=== PATIENT | male | born 1965 | race Caucasian/White ===

== ENCOUNTER 2025-04-10 15:55 | Inpatient (IN) | payer OTHER, SELFPAY ==
[2025-04-10] VITALS (43 sets, daily range): BP systolic 74–120; BP diastolic 52–82
[2025-04-10 10:07] LABS: Glucose - Point of Care 189 mg/dl (70-99)
--- NOTE | 2025-04-10 10:18 | ED.GENMED ---
History of Present Illness
<Saturnino Bundy PA-C - Last Filed: 04/10/25 15:09>
General
Chief Complaint: Change Level of Consciousness
Source: records
Time Seen by Provider: 04/10/25 09:59
History of Present Illness
History of Present Illness:
59-year-old male with past medical history of atrial fibrillation, hypertension, hyperlipidemia, CKD (dialysis Monday, Monday, Monday) presenting to the ER from [facility] for evaluation and reported change in mental status and
hypotension, currently being treated for bacteremia but it is not clear as to where the source of infection is occurring. Patient has reportedly been at [facility] for 1 to 2 weeks, is normally awake alert and oriented x 3 but per EMS patient is
persistently somnolent and not responding to verbal commands but maintaining his airway. EMS found him hypotensive on their arrival, remains hypotensive on arrival here, unable to provide any history. It is unclear as to which hospital patient
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 I attempted to call [facility] to get further information and figure out which facility
patient had come from prior to their facility but unfortunately was not able to speak to any of the nursing staff, attempting to get medical records from [facility].
Past History
<Saturnino Bundy PA-C - Last Filed: 04/10/25 15:09>
Past History
ED Past Medical History: Arrthythmia, HTN, Hypercholesterolemia, Renal failure and Psychiatric
ED Past Surgical History: Other (Unknown)
Social History
Tobacco: Non-smoker
Alcohol: None
Drug: None
Personal: Single
Living: assisted
Review of Systems
<Saturnino Bundy PA-C - Last Filed: 04/10/25 15:09>
Review of Systems
All Other Systems: ROS reviewed and negative except as documented in HPI and ROS
Phy Exam
<Saturnino Bundy PA-C - Last Filed: 04/10/25 15:09>
Physical Exam
Physical Exam:
GENERAL: Eyes closed, maintaining airway, grunts when you say his name but does not answer questions, grunts with painful stimuli, appears older than stated age, ill-appearing
HEAD: Normocephalic atraumatic
EYE: clear conjunctiva
NECK: Supple
ENT: o/p clr, dry mucous membranes
CARDIAC: Regular rate and rhythm .
LUNGS: Clear breath sounds bilaterally, no acute respiratory distress, no wheezes/rales/rhonchi, left anterior chest wall has dialysis catheter, left upper extremity fistula
ABDOMEN: Soft, without focal tenderness, no r/g, no cvat
NEUROLOGICAL: Unable to assess
SKIN: cool and dry, stage II-III sacral wound with slight erythema
MUSCULOSKELETAL: Skin is mottled bilateral lower extremities, no edema, cool to the touch
PSYCH: Unable to assess
Scores
<Saturnino Bundy PA-C - Last Filed: 04/10/25 15:09>
Heart Failure Risk
Heart Failure Risk Score: Not Applicable
Heart Score for Chest Pain Patients
STEMI patient?: Not applicable
Withdrawal Assessment of Alcohol
Withdrawal Assessment Completed?: Not applicable
Course
<Saturnino Bundy PA-C - Last Filed: 04/10/25 15:09>
Orders/Labs/Results
Orders:
Orders
04/10/25 10:03
Straight cath- Treatment ONCE
0.9% Sodium Chloride 1000 ml [Nss] 1,800 ml IV NOW STA
04/10/25 10:04
Electrocardiogram (*1) Urgent
Reason for Study: Other
Other Reason for Exam: sepsis
EKG- Treatment ONCE
CR Chest Portable - 1 View Urgent
Comment:
Reason For Exam: change in mental status
Reason Study Needs to be Portable: Patient Unstable
04/10/25 10:12
Complete Blood Count/With Diff Urgent
Comprehensive Metabolic Panel Urgent
Lactic Acid Q4H
Comment: CANCEL 2nd LACTIC ACID IF 1st LACTIC ACID IS LESS THAN 2
Magnesium Urgent
Phosphorus Urgent
Blood Culture Q30M
[place] Source: Blood/Venous
Specimen Description:
04/10/25 10:37
CT Head W/o Iv Contrast Urgent
Comment:
Reason For Exam: AMS
04/10/25 10:38
Troponin I Urgent
04/10/25 12:30
Blood Culture Q30M
[place] Source: Blood/Venous
Specimen Description:
04/10/25 14:18
Add On- LAB Routine
Tests Added?: Mg Phos
04/10/25 14:52
Troponin I Routine
Abnormal Lab Results
04/10/25 04/10/25 04/10/25
10:05 10:12 10:38
RBC 3.07 L 10^6/uL
(4.70-6.10)
Hgb 9.0 L g/dL
(13.0-18.0)
Hct 28.4 L %
(39.0-52.0)
MCHC 31.7 L g/dL
(33.0-37.0)
RDW 19.2 H %
(11.5-14.5)
Plt Count 88 L 10^3/uL
(130-400)
MPV 10.8 H fL
(7.4-10.4)
Absolute Lymphs (auto) 0.6 L 10^3/uL
(1.2-3.4)
Immature Gran % 0.6 H %
(0-0.5)
Neutrophils % 80.6 H %
(42.2-75.2)
Lymphocytes % 9.2 L %
(20.5-51.1)
Potassium 3.1 L mmol/L
(3.5-5.1)
Chloride 96 L mmol/L
(98-107)
Carbon Dioxide 34 H mmol/L
(22-30)
BUN 37 H mg/dl
(9-20)
Creatinine 3.0 H mg/dL
(0.7-1.3)
Glucose 196 H mg/dl
(70-99)
Calcium 8.2 L mg/dl
(8.4-10.2)
Phosphorus 5.5 H mg/dl
(2.5-4.5)
Total Bilirubin 1.5 H mg/dl
(0.2-1.3)
Alkaline Phosphatase 185 H U/L
(38-126)
Troponin I 0.056 H* ng/ml
Total Protein 6.0 L g/dl
(6.3-8.2)
Albumin 3.2 L g/dl
(3.5-5.0)
POC Glucose 189 H mg/dl
(70-99)
04/10/25 10:12
04/10/25 10:12
Vital Signs
Initial and Last Documented VS:
Initial Vital Signs
Temp Pulse Resp BP Pulse Ox
97.6 F 63 18 74/57 96
04/10/25 09:58 04/10/25 09:58 04/10/25 09:58 04/10/25 09:58 04/10/25 09:58
Last Documented Vital Signs
Temp Pulse Resp BP Pulse Ox
97.6 F 65 23 107/73 100
04/10/25 09:58 04/10/25 15:00 04/10/25 15:00 04/10/25 15:00 04/10/25 15:00
<Abdirahman H. Minerva, DO - Last Filed: 04/10/25 10:49>
Orders/Labs/Results
Orders:
Orders
04/10/25 10:03
Straight cath- Treatment ONCE
0.9% Sodium Chloride 1000 ml [Nss] 1,800 ml IV NOW STA
04/10/25 10:04
Electrocardiogram (*1) Urgent
Reason for Study: Other
Other Reason for Exam: sepsis
EKG- Treatment ONCE
CR Chest Portable - 1 View Urgent
Comment:
Reason For Exam: change in mental status
Reason Study Needs to be Portable: Patient Unstable
04/10/25 10:12
Complete Blood Count/With Diff Urgent
Comprehensive Metabolic Panel Urgent
Lactic Acid Q4H
Comment: CANCEL 2nd LACTIC ACID IF 1st LACTIC ACID IS LESS THAN 2
Magnesium Urgent
Phosphorus Urgent
Blood Culture Q30M
[place] Source: Blood/Venous
Specimen Description:
04/10/25 10:37
CT Head W/o Iv Contrast Urgent
Comment:
Reason For Exam: AMS
04/10/25 10:38
Troponin I Urgent
04/10/25 12:30
Blood Culture Q30M
[place] Source: Blood/Venous
Specimen Description:
04/10/25 14:18
Add On- LAB Routine
Tests Added?: Mg Phos
04/10/25 14:52
Troponin I Routine
Abnormal Lab Results
04/10/25 04/10/25 04/10/25
10:05 10:12 10:38
RBC 3.07 L 10^6/uL
(4.70-6.10)
Hgb 9.0 L g/dL
(13.0-18.0)
Hct 28.4 L %
(39.0-52.0)
MCHC 31.7 L g/dL
(33.0-37.0)
RDW 19.2 H %
(11.5-14.5)
Plt Count 88 L 10^3/uL
(130-400)
MPV 10.8 H fL
(7.4-10.4)
Absolute Lymphs (auto) 0.6 L 10^3/uL
(1.2-3.4)
Immature Gran % 0.6 H %
(0-0.5)
Neutrophils % 80.6 H %
(42.2-75.2)
Lymphocytes % 9.2 L %
(20.5-51.1)
Potassium 3.1 L mmol/L
(3.5-5.1)
Chloride 96 L mmol/L
(98-107)
Carbon Dioxide 34 H mmol/L
(22-30)
BUN 37 H mg/dl
(9-20)
Creatinine 3.0 H mg/dL
(0.7-1.3)
Glucose 196 H mg/dl
(70-99)
Calcium 8.2 L mg/dl
(8.4-10.2)
Phosphorus 5.5 H mg/dl
(2.5-4.5)
Total Bilirubin 1.5 H mg/dl
(0.2-1.3)
Alkaline Phosphatase 185 H U/L
(38-126)
Troponin I 0.056 H* ng/ml
Total Protein 6.0 L g/dl
(6.3-8.2)
Albumin 3.2 L g/dl
(3.5-5.0)
POC Glucose 189 H mg/dl
(70-99)
04/10/25 10:12
04/10/25 10:12
Vital Signs
Initial and Last Documented VS:
Initial Vital Signs
Temp Pulse Resp BP Pulse Ox
97.6 F 63 18 74/57 96
04/10/25 09:58 04/10/25 09:58 04/10/25 09:58 04/10/25 09:58 04/10/25 09:58
Last Documented Vital Signs
Temp Pulse Resp BP Pulse Ox
97.6 F 65 23 107/73 100
04/10/25 09:58 04/10/25 15:00 04/10/25 15:00 04/10/25 15:00 04/10/25 15:00
<Saturnino Bundy PA-C - Last Filed: 04/10/25 15:09>
MDM/Problems Addressed
Differential Diagnosis Includes:
Severe sepsis/bacteremia
Infected dialysis catheter
PICC line infection
Endocarditis
Urinary tract infection
Pneumonia
Viral syndrome
Electrolyte imbalance
Hyper/hypoglycemia
MDM/Problems Addressed:
59-year-old male presenting to the ER from [facility] for evaluation of change in mental status, normally awake alert and oriented x 3, currently somnolent but maintaining airway. Significant hypotension noted. Will treat with IV
fluids, will have low threshold to start pressors. Currently being treated for what appears to be vancomycin resistant infection but it is unclear as to the current source as patient's paperwork did not express potential source of infection. I
contacted [facility], attempted to speak with nursing staff but was unable to do so. Attempting to obtain records from [facility] from previous hospital as patient does not have any current records from this facility. Patient will be admitted here
for further treatment
Chronic conditions affecting care: Kidney disease
Acute Exacerbation and/or Progression of Chronic Illness: Kidney disease
<Saturnino Bundy PA-C - Last Filed: 04/10/25 15:09>
*Pulse Oximetry
SaO2: 96
Oxygen Mode of Delivery: Room air
Patient hypoxic: no
*EKG
Interpreted by ED Provider?: Yes
Heart Rate: 62
Rate: normal
Rhythm: sinus
Ischemia: ST depression (Diffuse ST depressions most pronounced in V1 through V6 and lateral leads)
*Electronic Equipment Installer Interpretation
Rate: normal
Rhythm: sinus
*Critical Care Note
Total Time (30-74mins, 75-104mins- exclusive of procedures): 40
comment:
Critical care statement: A total of 40 minutes of critical care time was provided for this patient. This includes management of unstable vital signs, evaluation of the patient at bedside, reviewing the patient's pertinent medical records, discussion
with consultants, review of old EKGs and review of pertinent medical records. This time with separate from time utilized to perform the aforementioned documented procedures
<Saturnino Bundy PA-C - Last Filed: 04/10/25 15:09>
Patient Management
Discussion with other providers: Hospitalist
Escalation/DeEscalation of care consider admission/obs:
Hospitalist team accepts for continued eval and treatment of change in mental status. PAtient BP much improved with sepsis fluids. I attempted to obtain records from outpatient facilities however were mostly unsuccessful with this. I was able to
speak with patient's sister who states that most recently patient was hospitalized at [facility] for sepsis/bacteremia and he was transferred to this facility at [facility] because of their ability to perform inpatient dialysis.
Patient's sisters goal is ultimately to get him to a facility in [place] where she lives so she can help with his medical care. She was updated on patient's current condition. She states patient is currently a full code.
ED Attending Note
<Saturnino Bundy PA-C - Last Filed: 04/10/25 15:09>
-
Portions of this chart may have been created with voice recognition software.� Occasional wrong word or��sound alike� substitutions may have occurred due to the inherent limitations of voice recognition software.
<Abdirahman Palma DO - Last Filed: 04/10/25 10:49>
ED Attending Note
Patient seen and examined by attending physician: Yes
I performed the substantive portion of visit, reviewed & personally made and approve the management plan that is documented in note by myself or KARELY.: Yes
ED Attending Note:
59-year-old male sent from assisted for decreased level of consciousness this morning. Minimal historical information provided. Patient unable to provide any history on his own. It does appear that patient has end-stage renal disease with a
left chest dialysis catheter. He he is evidently receiving antibiotics at dialysis to treat a previous bacteremia.
General: Somnolent but will arouse to voice and shake his head to questions. Cachectic with barrel chest. No acute respiratory distress.
Vitals: Hypotensive, afebrile by rectal temp
Head: Atraumatic
Eyes: Pupils equal, EOMI
Throat: Airway intact, no exudates, extremely dry mucosa
Neck: Trachea midline
Lungs: Clear and equal b/l
Heart: Regular rate, no murmurs
Abd: Soft, Nontender, No pulsatile mass
Neuro: Grossly nonfocal
Skin: Warm, dry, no rash, stage II pressure wound left buttock over the ischium. Does not appear acutely infected
Extremities: pulses equal b/l, no edema
Patient presents with profound hypotension and decreased mental status. Clinically appears extremely dry. Unclear what his baseline mental status is but apparently he is much more responsive than what we see him today. He is afebrile which is
reassuring. Suspect his hypotension is primarily due to volume depletion. Sepsis fluid bolus ordered. He is already on significant broad-spectrum antibiotics. Will obtain a head CT given ultimate the status though again I think this is likely
volume depletion. Patient may also have hyperkalemia given his renal failure.
Discharge Plan
Departure
Patient Disposition: Admit
Date of Disposition: 04/10/25
Time of Disposition: 11:42
Presentation/result/management discussed w/ accepting MD/DO: Hospitalist
Discharge Problem:
Acute alteration in mental status, Dehydration, Anemia
Prescriptions:
No Action
acetaminophen [Tylenol] 325 mg Tablet
650 mg PO Q6HPRN PRN (Reason: mild pain)
cefepime 2 gram Recon Soln
2 g IV MOWEFR
ondansetron HCl [Zofran] 4 mg Tablet
4 mg PO Q8HPRN PRN (Reason: nausea)
thiamine HCl (vitamin B1) 100 mg Tablet
100 mg PO DAILY
Theragen Tablet
1 tab PO DAILY
melatonin 3 mg Tablet
6 mg PO HS
bisacodyl [Dulcolax (bisacodyl)] 10 mg Suppository
10 mg TX DAILYPRN PRN (Reason: if no bm aftr mom)
pantoprazole [Protonix] 40 mg Tablet,Delayed Release (Dr/Ec)
40 mg PO DAILY
buspirone 10 mg Tablet
10 mg PO TID
haloperidol 10 mg Tablet
10 mg PO [id number] PRN (Reason: before dialysis)
metoprolol tartrate 50 mg Tablet
50 mg PO BID
docusate sodium [Colace] 100 mg Capsule
100 mg PO DAILY
gabapentin 100 mg Capsule
100 mg PO TID
sorbitol 70 % Solution
30 ml PO DAILYPRN PRN (Reason: constipation)
insulin lispro 100 unit/mL Insulin Pen
1 sliding scale dose SC AC
Rx Instructions:
181-220=2units, 221-260=2units, 261-300=6units
escitalopram oxalate [Lexapro] 20 mg Tablet
20 mg PO DAILY
rosuvastatin [Crestor] 10 mg Tablet
10 mg PO DAILY
daptomycin 500 mg Recon Soln
470 mg IV MOWEFR
Eliquis 2.5 mg Tablet
2.5 mg PO BID
potassium chloride 20 mEq Tablet Extended Release
40 meq PO BID
magnesium oxide 200 mg magnesium Tablet
168 mg PO DAILY
Referrals:
Salvador Estrella DO [Family Provider, Internal Medicine]
Interventions
Interventions:
*Risk Screen - Suicide Last Done: 04/10/25 09:58
*General Assessment Last Done: 04/10/25 09:58
*Neglect/Abuse Screening Last Done: 04/10/25 10:42
ED- Cardiac Assessment Last Done: 04/10/25 10:42
ED- Neurological Assessment Last Done: 04/10/25 10:42
ED-Psychological Assessment Last Done: 04/10/25 10:42
ED- Pulmonary Assessment Last Done: 04/10/25 10:42
Discharge Date and Time
Print Language: SPANISH
[2025-04-10 10:28] LABS: Hematocrit 28.4 % (39.0-52.0); Hemoglobin 9.0 g/dL (13.0-18.0); Mean Corp Hgb Conc. 31.7 g/dL (33.0-37.0); Mean Corpuscular Volume 92.5 fL (80.0-94.0); Nucleated Red Blood Cells % 0 % (-); Red Cell Dist. Width 19.2 % (11.5-14.5)
[2025-04-10] MEDS: NSS 1800 ML IV (10:40)
[2025-04-10 10:41] LABS: ALT (SGPT) 19 U/L (0-50); AST (SGOT) 29 U/L (17-59); Albumin 3.2 g/dl (3.5-5.0); Alkaline Phosphatase 185 U/L (38-126); Blood Urea Nitrogen 37 mg/dl (9-20); Calcium 8.2 mg/dl (8.4-10.2); Carbon Dioxide 34 mmol/L (22-30); Chloride 96 mmol/L (98-107); Glucose 196 mg/dl (70-99); Potassium 3.1 mmol/L (3.5-5.1); Sodium 137 mmol/L (135-145); Total Protein 6.0 g/dl (6.3-8.2); eGFR 23.34
[2025-04-10 10:47] LABS: Platelet Count 88 10^3/uL (130-400)
[2025-04-10 11:26] LABS: Troponin I 0.056 ng/ml
--- NOTE | 2025-04-10 11:51 | HPS.HSE ---
Addendum entered and electronically signed by Marisol Terrazas MD 04/11/25 03:58:
correction to Physical Exam. Pinpoint pupils b/l not PERRLA
Check UDS
Original Note:
Family Physician
-
Family Physician: Salvador Estrella, DO
Chief Complaint
-
AMS
History of Present Illness
59M [facility] resident ESRD MWF pafib Eliquis HTN HLD DM PAD toe amputations CHF Anxiety Depression suspected underlying vascular dementia recent prolonged hospitalization [facility] January 11 to March 17 for intractable back pain catheter
associated infection VR and Klebsiella bacteremia (following which he was discharged to [facility] with press worker helper IV abx Cefipime and Daptomycin to be given with HD- sent by SNF for evaluation AMS, normally AOx3 at baseline, essentially obtunded on
arrival with associate severe hypotension systolic 70s. Improved with IVF bolus, patient responding to verbal stimuli but nonverbal. Sometimes responds with nods/shakes head in answer to questions. Stable respiratory status on room air afebrile.
All of history from reports and discussion with patient's medical POA sister Geovanni over phone (lives in [place]). Suspected underlying vascular dementia, patient has had ongoing issues with intermittent confusion since November 2024, patient has also
been bed bound since then. Per sister, she last had a normal conversation with patient Mar 22-, patient calls her often. Sister became concerned when she didn't hear from patient for a while prompting her to visit facility Sun Apr 06,
reporting she found patient obtunded. Reportedly there was outpt work up done and some improvement in mental status was noted, speaking very little if at all since then. 04/10 pt was sent here for further evaluation, obtunded on arrival
hypotensive as aforementioned. ED eval also notable for troponin elevation 0.056 trended down to 0.[address] depressions inferiorlateral leads. Though AMS, patient doesn't appear to be in acute distress.
Medical History
Past Medical History
Past Medical History: Reports Other (as above)
Past Surgical History: Reports Other (as above)
Social History
Tobacco: Non-smoker
Alcohol: Occasional
Drug: None
Living: [facility]
Family History
Family History: Not pertinent (reviewed)
Allergies / Home Medications
Allergies reflects when Allergies were last updated in [facility].
Home Medications with original date entered in [facility]
Allergy/Medication List:
Allergies
Allergy/AdvReac Type Severity Reaction Status Date / Time
losartan Allergy Unknown Unknown Verified 04/10/25 10:09
oxycodone Allergy Unknown Unknown Verified 04/10/25 10:09
Home Medications
acetaminophen 325 mg tablet (Tylenol) 650 mg PO Q6HPRN PRN mild pain 04/10/25
apixaban 2.5 mg tablet (Eliquis) 2.5 mg PO BID 04/10/25
bisacodyl 10 mg rectal suppository (Dulcolax (bisacodyl)) 10 mg NM DAILYPRN PRN if no bm aftr mom 04/10/25
buspirone 10 mg tablet 10 mg PO TID 04/10/25
cefepime 2 gram solution for injection 2 g IV MOWEFR at dialysis 04/10/25
daptomycin 500 mg intravenous solution 470 mg IV MOWEFR 04/10/25
docusate sodium 100 mg capsule (Colace) 100 mg PO DAILY 04/10/25
escitalopram oxalate 20 mg tablet (Lexapro) 20 mg PO DAILY 04/10/25
gabapentin 100 mg capsule 100 mg PO TID 04/10/25
haloperidol 10 mg tablet 10 mg PO [id number] PRN before dialysis 04/10/25
insulin lispro 100 unit/mL subcutaneous pen 1 sliding scale dose SC AC 04/10/25
magnesium oxide 168 mg PO DAILY 04/10/25
melatonin 3 mg tablet 6 mg PO HS 04/10/25
metoprolol tartrate 50 mg tablet 50 mg PO BID 04/10/25
ondansetron HCl 4 mg tablet 4 mg PO Q8HPRN PRN nausea 04/10/25
pantoprazole 40 mg tablet,delayed release (Protonix) 40 mg PO DAILY 04/10/25
potassium chloride 20 mEq tablet,extended release 40 meq PO BID 04/10/25
rosuvastatin 10 mg tablet (Crestor) 10 mg PO DAILY 04/10/25
sorbitol 70 % solution 30 ml PO DAILYPRN PRN constipation 04/10/25
therapeutic multivitamin 1 tab PO DAILY 04/10/25
thiamine HCl (vitamin B1) 100 mg tablet 100 mg PO DAILY 04/10/25
Review of Systems
-
Unable to obtain full review of systems at this time due to: Patient Non-verbal
Physical Exam
Vital Signs
Vital Signs
Temp Pulse Resp BP Pulse Ox
97.6 F 62 24 108/63 96
04/10/25 09:58 04/10/25 11:30 04/10/25 11:30 04/10/25 11:30 04/10/25 11:45
Physical Exam
General: Other (as below)
Laboratory Results
-
04/10/25 10:12
04/10/25 10:12
Laboratory Results
Lactic Acid Cancelled 04/10/25 14:15
Total Bilirubin 1.5 mg/dl (0.2-1.3) H 04/10/25 10:12
AST 29 U/L (17-59) 04/10/25 10:12
ALT 19 U/L (0-50) 04/10/25 10:12
Alkaline Phosphatase 185 U/L (38-126) H 04/10/25 10:12
Troponin I 0.056 ng/ml H* 04/10/25 10:38
Impression/Plan
-
Physical Exam
General: No pallor, cyanosis, or jaundice.
HEENT: Throat clear. PERRLA Normocephalic atraumatic
NECK: Supple. No JVD Carotid Bruits
RESPIRATORY: Lungs clear to auscultation. No crackles wheezes stridor Stable respiratory status on room air
CVS: S1, S2 normal. RRR. No murmur, rub or gallop.
ABDOMEN: Soft, non-tender. No distension. BS+/normal.
EXTREMITIES: No peripheral cyanosis or edema.
COUNTER PERSON: responsive to verbal stimuli but essentially nonverbal very little meaningful communication
Psych: calm
IMPRESSION:
59M [facility] resident ESRD MWF pafib Eliquis HTN HLD DM PAD toe amputations CHF Anxiety Depression suspected underlying vascular dementia recent prolonged hospitalization [facility] January 11 to March 17 for intractable back pain catheter
associated infection VR and Klebsiella bacteremia on correction IV abx Cefipime and Daptomycin with HD, here for evaluation AMS obtunded on arrival with associate severe hypotension systolic 70s. Improved with IVF bolus, patient responding to verbal
stimuli but nonverbal. Reportedly AOx3 at baseline has been intermittently confused and bedbound since November per sister Geovanni TATE (lives in [place]). Stable respiratory status on room air afebrile. Per sister, she last had a normal
conversation with patient weekend Mar 22-, patient typically calls her often. Reports first noting and alerting staff that patient was obtunded Sun Apr 06. Reportedly some improvement was noted in outpt work up before acute worsening and referral
here Th04/10
PLAN:
#Acute Metabolic Encephalopathy unclear etiology possibly polypharmacy vs hypovolemia vs medication induced
#Hx VRE and Klebsiella pneumonia bacteremia on IV Cefepime Daptomycin with HD
#ESRD HD MWF
#Bedbound since November 2024 also intermittent confusion since then
IMU admit for closer monitoring, neuro checks
CT head appreciated no acute abn's
Check Brain MRI
Records Requested [facility]
Nephro Eval for HD
ID eval requested question possible side effect Daptomycin
NPO except meds for now (if PO meds can be given)
Ok to advance diet as tolerated if mental status improves 2g Na 2g K fluid restriction 48 oz
Hold sedating medications Gabapentin Haldol Melatonin Lexapro
#Troponin Elevation
#Possible ST depressions noted on EKG
#Mild QT prolongation 480
unit nurse
Troponin trending down 0.056 0.051 check 3rd troponin and repeat EKG
Suspect non-ischemic myocardial injury
Cardio eval requested
#CHF
#HTN
Cont Metoprolol with holding parameters
#HLD
hold statin while on Daptomycin
#Hypokalemia
monitor and replete as necessary
#Anxiety/Depression
#Concern for underlying Vascular Dementia
Hold sedating medications Gabapentin Haldol Melatonin Lexapro as above
cont buspirone if patient able to tolerate PO meds
dvt ppx SCD
Full Code as per patient's medical POA sister Geovanni
Discussed with patient's sister medical POA Geovanni (lives in [place]) also RN herself
I spent a total of 85 minutes with the patient or on the floor. More than 50% of this time involved counseling and coordination of care.
--- NOTE | 2025-04-10 13:28 | EDRN ---
Pt is responding w/ grunting noise to verbal stimulus.
[2025-04-10 14:53] LABS: Magnesium 1.9 mg/dl (1.6-2.3)
--- NOTE | 2025-04-10 14:53 | EDRN ---
Second troponin drawn and sent at this time.
--- NOTE | 2025-04-10 15:02 | EDRN ---
Pt more awake and now groaning continuously. Dr. Terrazas in to see pt.
[2025-04-10 15:33] LABS: Troponin I 0.051 ng/ml
--- NOTE | 2025-04-10 19:21 | EDRN ---
Report to RN who will care for pt in IMU at this time.
[2025-04-10 21:54] LABS: Troponin I 0.047 ng/ml
[2025-04-10] MEDS: NSS (PRESERVATIVE FREE) 10 ML IV (22:05)
[2025-04-10] MEDS: PROTONIX IV 40 MG IV (22:05)
[2025-04-10] MEDS: KCL 270 MEQ IV (22:50)
[2025-04-11] VITALS (26 sets, daily range): BP systolic 82–127; BP diastolic 58–104
[2025-04-11] MEDS: NOVOLOG FLEXPEN-MODERATE RESISTANCE SC ×4 (00:58→18:09)
[2025-04-11 01:01] LABS: Glucose - Point of Care 128 mg/dl (70-99)
--- NOTE | 2025-04-11 02:49 | PTCARENOTE ---
Received patient from the ED lethargic and only responsive to pain. Unable to take PO meds. call worker person provider made aware. k 3.1- krider ordered. Mental status waxes and wanes. Patient yelled throughout the night at times and then was able to answer a
simple question. Patient then calling out to his mom very confused. sp02 dropped to the high 80s whle asleep. Placed on 3 liters NC. Bed alarm on. Will continue to monitor.
[2025-04-11 04:46] LABS: Hematocrit 29.4 % (39.0-52.0); Hemoglobin 9.3 g/dL (13.0-18.0); Mean Corp Hgb Conc. 31.6 g/dL (33.0-37.0); Mean Corpuscular Volume 91.3 fL (80.0-94.0); Platelet Count 75 10^3/uL (130-400); Red Cell Dist. Width 19.0 % (11.5-14.5)
[2025-04-11 05:03] LABS: Blood Urea Nitrogen 39 mg/dl (9-20); Calcium 8.5 mg/dl (8.4-10.2); Carbon Dioxide 28 mmol/L (22-30); Chloride 103 mmol/L (98-107); Glucose 120 mg/dl (70-99); Magnesium 1.8 mg/dl (1.6-2.3); Potassium 3.4 mmol/L (3.5-5.1); Sodium 140 mmol/L (135-145); eGFR 20.09
[2025-04-11 05:40] LABS: Glucose - Point of Care 126 mg/dl (70-99)
--- NOTE | 2025-04-11 10:18 | CON.CAR ---
Addendum entered and electronically signed by Stephen Burt MD 04/11/25 11:41:
I saw and examined the patient.
The ART INSTRUCTOR's note was reviewed and I agree with the note.
Comment:
59-year-old man with paroxysmal atrial fibrillation, ESRD on HD, DM, and PAD who presents from his facility for altered mental status. He reportedly had a recent hospitalization in [place] for bacteremia. Cardiology is consulted for mildly
elevated troponin and nonspecific ECG changes. History is limited by patient's somnolence. Does not follow commands for me or respond to questions.
Physical exam: RRR, no murmurs, lungs clear anteriorly
Troponin 0.056 -> 0.[address] depressions and T wave inversions in the inferolateral leads. No prior available for comparison.
Abnormal troponin: Suspect this is in the normal range for someone with ESRD. Unclear chronicity of ECG abnormalities; will try to obtain prior for comparison. Unable to obtain history. Follow-up echocardiogram.
Original Note:
Consultation
Consultation Request
Date/Time Consultation Requested: 04/10/25 1741
Date/Time Consultation Performed: 04/11/25 1000
Requesting Provider: Dr. Terrazas
Performing Provider: Hanna RAMEY for Dr. Burt
Reason for Consultation: abnormal troponin and EKG
Medical History
-
Chief Complaint: change in MS
History of Present Illness:
59 y/o male with AFIB on Eliquis, HTN, HLD, kidney disease on HD, PAD (toe amputation), anxiety/depression, anemia, suspected vascular dementia, and DM who is here for evaluation after staff at his facility noted a change in his mental status, in
which he was somnolent and not responding to commands. He is admitted for further evaluation. He was hypotensive requiring IVF. Per chart, he had a prolonged hospitalization at [facility] with klebsiella bacteremia related to catheter infection
(further details unknown). We are consulted for abnormal EKG and troponin. Patient is not answering questions for me. He is mumbling and opens eyes spontaneously. Follows some simple commands. He is in no acute distress. Head CT no acute
abnormality. HPI and history obtained from chart due to patient MS. He is currently getting HD.
Past Medical History
Past Medical History: Arrhythmias, HTN, Hypercholesterolemia and Other (as above)
Social History
Living: Other (facility)
Family History
Family History: Unable to Obtain
Allergies / Home Medications
Allergy/AdvReac Type Severity Reaction Status Date / Time
losartan Allergy Unknown Verified 04/10/25 22:15
oxycodone Allergy Unknown Verified 04/10/25 22:15
�Medication �Instructions �Recorded �Confirmed �Type
acetaminophen 325 mg tablet 650 mg PO Q6HPRN PRN mild pain 04/10/25 04/10/25 History
(Tylenol)
apixaban 2.5 mg tablet (Eliquis) 2.5 mg PO BID Blood Clot 04/10/25 04/10/25 History
Prevention/Tx
bisacodyl 10 mg rectal suppository 10 mg MA DAILYPRN PRN if no bm 04/10/25 04/10/25 History
(Dulcolax (bisacodyl)) aftr mom
buspirone 10 mg tablet 10 mg PO TID Mental Health/Anxiety 04/10/25 04/10/25 History
cefepime 2 gram solution for 2 g IV MOWEFR Infection 04/10/25 04/10/25 History
injection
daptomycin 500 mg intravenous 470 mg IV MOWEFR Infection 04/10/25 04/10/25 History
solution
docusate sodium 100 mg capsule 100 mg PO DAILY Constipation 04/10/25 04/10/25 History
(Colace)
escitalopram oxalate 20 mg tablet 20 mg PO DAILY Mental 04/10/25 04/10/25 History
(Lexapro) Health/Anxiety
gabapentin 100 mg capsule 100 mg PO TID Pain 04/10/25 04/10/25 History
haloperidol 10 mg tablet 10 mg PO [id number] PRN before 04/10/25 04/10/25 History
dialysis/AGITATION/ANXIETY
insulin lispro 100 unit/mL 1 sliding scale dose SC AC Diabetes 04/10/25 04/10/25 History
subcutaneous pen
magnesium oxide 168 mg PO DAILY Electrolyte 04/10/25 04/10/25 History
Repletion
melatonin 3 mg tablet 6 mg PO HS Sleep 04/10/25 04/10/25 History
metoprolol tartrate 50 mg tablet 50 mg PO BID Heart 04/10/25 04/10/25 History
Disease/Condition
ondansetron HCl 4 mg tablet 4 mg PO Q8HPRN PRN nausea 04/10/25 04/10/25 History
pantoprazole 40 mg tablet,delayed 40 mg PO DAILY Gastrointestinal 04/10/25 04/10/25 History
release (Protonix) Issue
potassium chloride 20 mEq 40 meq PO BID Electrolyte Repletion 04/10/25 04/10/25 History
tablet,extended release
rosuvastatin 10 mg tablet (Crestor) 10 mg PO DAILY High Cholesterol 04/10/25 04/10/25 History
sorbitol 70 % solution 30 ml PO DAILYPRN PRN constipation 04/10/25 04/10/25 History
therapeutic multivitamin 1 tab PO DAILY Supplement 04/10/25 04/10/25 History
thiamine HCl (vitamin B1) 100 mg 100 mg PO DAILY Supplement 04/10/25 04/10/25 History
tablet
Review of Systems
-
Unable to obtain full review of systems at this time due to: Other (patient MS)
History Source: Other (chart)
Neurological: Other (change in MS)
Physical Exam
Vital Signs
Temp Pulse Resp BP Pulse Ox
97.2 F 71 24 87/62 100
04/11/25 07:59 04/11/25 06:00 04/11/25 06:00 04/11/25 06:00 04/11/25 04:00
Lab Results
04/11/25 04:12
04/11/25 04:12
Troponin I 0.047 ng/ml H* 04/10/25 21:02
Physical Exam
General: Well Developed and No Apparent Distress
HEENT: Normocephalic and Anicteric
Respiratory: Clear and Non Labored Respirations
Cardiac: Regular Rhythm
Neuro: Awake and Other (not answering questions, opening eyes, following some commands )
Impression / Plan
-
Change in MS:
-w/u and management per primary team
Infectious process, recent bacteremia:
-ID on the case
-patient on antibiotics
-records from outside hospital are being requested for more details
Abnormal troponin: 0.056
-suspect acute non-ischemic myocardial injury in setting of renal disease and hypotension, acute illness
-echo is pending
Abnormal EKG:
-unknown baseline
-echo pending
-request previous EKG if possible for comparison
ESRD:
-on HD
Data Reviewed
-
EKG: Tracing Personally Visualized and interpreted (SR 65 BPM, ST and T abnormalities anterior and laterally- no baseline EKG)
Radiology: Report Reviewed by me (CXR;Findings of likely mild interstitial edema. No pleural effusion. No pneumothorax. Left chest wall central venous catheter with tip projecting over the cavoatrial junction.)
CT Scan: Report Reviewed by me (No acute intracranial abnormality noted. There are mild/moderate periventricular and subcortical white matter hypodensities which are nonspecific, however likely sequelae of chronic small vessel ischemic disease.)
Medical Tests (Nuc Med, Echo etc): Other (echo ordered)
Labs: Labs Reviewed by me
--- NOTE | 2025-04-11 10:33 | CON.ID ---
Consultation
-
Date/Time Consultation Requested: 04/10/2025 1744
Date/Time Consultation Performed: 04/11/2025 1036
Requesting Provider: Dr. Terrazas
Performing Provider: Dr. Cummins
Reason for Consultation: Hx VRE/Klebsiella infection
Chief Complaint / Past History
History of Present Illness
Marcelino Mondragon is a 59-year-old male being evaluated at the request of Dr. Contreras regarding prior infections. History is obtained from chart review as the patient can provide very little in the way of history.
The patient has a history of a prolonged hospitalization at [facility] from 01/11 - 03/17, during which time he was treated for back pain, reported catheter associated infection with VRE and Klebsiella, which he was continuing at
[facility]. The patient has a reported history of vascular dementia, and has been having issues with intermittent confusion since November 2024. He evidently has been bedbound since then. His sister became concerned when she visited him on 04/06,
when she found him reportedly obtunded. There was some outpatient work performed, with some reported improvement in mental status, but on 04/10 he was sent to [facility] for further evaluation. Here he was found to be obtunded and
hypotensive. Blood pressure responded to fluid bolus. Cultures have been obtained. Infectious Diseases is asked to comment upon further antimicrobial management.
Past History
Additional Past Medical History:
P A-fib (on Eliquis)
ESRD�HD (MWF)
DM
PAD
CHF
Anxiety/depression
Suspected vascular dementia
Additional Past Surgical History:
Left ACW HD catheter
Amputation left toes 1�3
Allergy History:
losartan Allergy (Verified 04/10/25 22:15)
Unknown
oxycodone Allergy (Verified 04/10/25 22:15)
Unknown
Medications Reviewed: Yes
Current Antibiotics:
Daptomycin 470 mg IV M-W-F after HD
Cefepime 2gm IV M-W-F after HD
Social History
Tobacco: Non-Smoker
Alcohol: None
Drug: None
Living: [facility]pc
Family History
Family History: Unable to Obtain
Review of Systems
Vital Signs
Temp Pulse Resp BP Pulse Ox
97.2 F 71 24 87/62 100
04/11/25 07:59 04/11/25 06:00 04/11/25 06:00 04/11/25 06:00 04/11/25 04:00
Physical Exam
Physical Exam
Constitutional: Chronically Ill, Non-toxic and Cachetic
Eyes: No Conjunctival Hemorrhage and Sclera Anicteric
Oral: No Thrush and No Ulcers
Cardiovascular: S1/S2; Negative S3/S4
Pulmonary: Negative Wheezes or Rhonchi
Gastrointestinal: Soft, Non Distended, Normal Bowel Sounds and No Rebound
Extremities: Negative Edema, Cyanosis or Erythema
Neurological: Awake and Alert
Psychological: Calm
Lines: HD Cath
Lab / Diagnostic Study Results
04/11/25 04:12
04/11/25 04:12
Abs Immat Gran (auto) 0.0 10^3/uL (0-0.05) 04/10/25 10:12
Absolute Neuts (auto) 5.0 10^3/uL (1.4-6.5) 04/10/25 10:12
Absolute Lymphs (auto) 0.6 10^3/uL (1.2-3.4) L 04/10/25 10:12
Absolute Monos (auto) 0.4 10^3/uL (0.1-0.6) 04/10/25 10:12
Absolute Basos (auto) 0.0 10^3/uL (0-0.2) 04/10/25 10:12
Immature Gran % 0.6 % (0-0.5) H 04/10/25 10:12
Neutrophils % 80.6 % (42.2-75.2) H 04/10/25 10:12
Lymphocytes % 9.2 % (20.5-51.1) L 04/10/25 10:12
Monocytes % 5.8 % (1.7-9.3) 04/10/25 10:12
Eosinophils % 3.2 % (0-6) 04/10/25 10:12
Basophils % 0.6 % (0-2) 04/10/25 10:12
Lactic Acid Cancelled 04/10/25 14:15
Microbiology Results
Micro:
04/10/25 10:12 Blood Culture - Preliminary
Blood/Venous No Growth in 24 hours- Final report to follow
04/11/25 04:12 MRSA Screen - Pending
Nose
04/10/25 12:30 Blood Culture - Pending
Blood/Venous
Assessment / Plan
Encephalopathy - ?TME ?med related (cefepime) ?other
Hx VRE / Klebsiella infection, on dapto / cefepime.
P A-fib (on Eliquis)
ESRD�HD (MWF)
DM
PAD
CHF
Anxiety/depression
Suspected vascular dementia
Recommendations:
Continue with daptomycin and cefepime. Adjust daptomycin dosing given hemodialysis to day holiday.
I have ordered to obtain records from [facility] to further review microbiology and course of antibiotic duration and dosing.
Local care to sacral wound. At my evaluation it could not be assessed secondary to patient currently being on hemodialysis, but will assess it later today. Wound care has been consulted.
Monitor white count and temperature curve.
Follow-up pending cultures.
Further recommendations as additional data is returned.
--- NOTE | 2025-04-11 10:58 | W.CON.NEPH ---
Consultation
-
Date/Time Consultation Requested: April 10, 2025 at 11 PM
Date/Time Consultation Performed: April 11, 2025 at 9:30 AM
Requesting Provider: Marisol Terrazas
Performing Provider: Dr. Johnson
Reason for Consultation: ESRD
Medical History
-
Chief Complaint: ESRD
History of Present Illness:
59M [facility] resident ESRD MWF pafib Eliquis HTN HLD DM PAD toe amputations CHF Anxiety Depression suspected underlying vascular dementia recent prolonged hospitalization [facility] January 11 to March 17 for intractable back pain catheter
associated infection VR and Klebsiella bacteremia (following which he was discharged to [facility] with usp IV abx Cefipime and Daptomycin to be given with HD- sent by SNF for evaluation AMS, normally AOx3 at baseline, essentially obtunded on
arrival with associate severe hypotension systolic 70s. Improved with IVF bolus,
Renal consult for end-stage renal disease
Past Medical History
ESRD MWF pafib Eliquis HTN HLD DM PAD toe amputations CHF Anxiety Depression
Social History
Tobacco: Non-Smoker
Alcohol: None
Allergies / Home Medications
Allergy/AdvReac Type Severity Reaction Status Date / Time
losartan Allergy Unknown Verified 04/10/25 22:15
oxycodone Allergy Unknown Verified 04/10/25 22:15
�Medication �Instructions �Recorded �Confirmed �Type
acetaminophen 325 mg tablet 650 mg PO Q6HPRN PRN mild pain 04/10/25 04/10/25 History
(Tylenol)
apixaban 2.5 mg tablet (Eliquis) 2.5 mg PO BID Blood Clot 04/10/25 04/10/25 History
Prevention/Tx
bisacodyl 10 mg rectal suppository 10 mg MS DAILYPRN PRN if no bm 04/10/25 04/10/25 History
(Dulcolax (bisacodyl)) aftr mom
buspirone 10 mg tablet 10 mg PO TID Mental Health/Anxiety 04/10/25 04/10/25 History
cefepime 2 gram solution for 2 g IV MOWEFR Infection 04/10/25 04/10/25 History
injection
daptomycin 500 mg intravenous 470 mg IV MOWEFR Infection 04/10/25 04/10/25 History
solution
docusate sodium 100 mg capsule 100 mg PO DAILY Constipation 04/10/25 04/10/25 History
(Colace)
escitalopram oxalate 20 mg tablet 20 mg PO DAILY Mental 04/10/25 04/10/25 History
(Lexapro) Health/Anxiety
gabapentin 100 mg capsule 100 mg PO TID Pain 04/10/25 04/10/25 History
haloperidol 10 mg tablet 10 mg PO [id number] PRN before 04/10/25 04/10/25 History
dialysis/AGITATION/ANXIETY
insulin lispro 100 unit/mL 1 sliding scale dose SC AC Diabetes 04/10/25 04/10/25 History
subcutaneous pen
magnesium oxide 168 mg PO DAILY Electrolyte 04/10/25 04/10/25 History
Repletion
melatonin 3 mg tablet 6 mg PO HS Sleep 04/10/25 04/10/25 History
metoprolol tartrate 50 mg tablet 50 mg PO BID Heart 04/10/25 04/10/25 History
Disease/Condition
ondansetron HCl 4 mg tablet 4 mg PO Q8HPRN PRN nausea 04/10/25 04/10/25 History
pantoprazole 40 mg tablet,delayed 40 mg PO DAILY Gastrointestinal 04/10/25 04/10/25 History
release (Protonix) Issue
potassium chloride 20 mEq 40 meq PO BID Electrolyte Repletion 04/10/25 04/10/25 History
tablet,extended release
rosuvastatin 10 mg tablet (Crestor) 10 mg PO DAILY High Cholesterol 04/10/25 04/10/25 History
sorbitol 70 % solution 30 ml PO DAILYPRN PRN constipation 04/10/25 04/10/25 History
therapeutic multivitamin 1 tab PO DAILY Supplement 04/10/25 04/10/25 History
thiamine HCl (vitamin B1) 100 mg 100 mg PO DAILY Supplement 04/10/25 04/10/25 History
tablet
Review of Systems
-
Unable to obtain full review of systems at this time due to: Dementia and Acuity
Physical Exam
Vital Signs
Vital Signs
Temp Pulse Resp BP Pulse Ox
97.2 F 71 24 87/62 100
04/11/25 07:59 04/11/25 06:00 04/11/25 06:00 04/11/25 06:00 04/11/25 04:00
Lab Results
WBC 4.0 10^3/uL (4.8-10.8) L 04/11/25 04:12
RBC 3.22 10^6/uL (4.70-6.10) L 04/11/25 04:12
Hgb 9.3 g/dL (13.0-18.0) L 04/11/25 04:12
Hct 29.4 % (39.0-52.0) L 04/11/25 04:12
Plt Count 75 10^3/uL (130-400) L 04/11/25 04:12
Sodium 140 mmol/L (135-145) 04/11/25 04:12
Potassium 3.4 mmol/L (3.5-5.1) L 04/11/25 04:12
Chloride 103 mmol/L (98-107) 04/11/25 04:12
Carbon Dioxide 28 mmol/L (22-30) 04/11/25 04:12
BUN 39 mg/dl (9-20) H 04/11/25 04:12
Creatinine 3.4 mg/dL (0.7-1.3) H 04/11/25 04:12
eGFR 20.09 04/11/25 04:12
Glucose 120 mg/dl (70-99) H 04/11/25 04:12
Calcium 8.5 mg/dl (8.4-10.2) 04/11/25 04:12
Phosphorus 5.5 mg/dl (2.5-4.5) H 04/10/25 10:12
Albumin 3.2 g/dl (3.5-5.0) L 04/10/25 10:12
Physical Exam
General no acute distress
HEENT no cephalic atraumatic extraocular muscle intact no scleral icterus no JVD neck supple
lungs coarse
heart regular S1-S2 positive
abdomen soft nontender positive bowel sounds
extremities no edema pulses present bilateral
Neurologically obtunded
Skin no lesions no abrasions no petechiae
Psych flat
Assessment/Plan
-
59M [facility] resident ESRD MWF pafib Eliquis HTN HLD DM PAD toe amputations CHF Anxiety Depression suspected underlying vascular dementia recent prolonged hospitalization [facility] January 11 to March 17 for intractable back pain catheter
associated infection VR and Klebsiella bacteremia (following which he was discharged to [facility] with terminal clerk IV abx Cefipime and Daptomycin to be given with HD- sent by SNF for evaluation AMS, normally AOx3 at baseline, essentially obtunded on
arrival with associate severe hypotension systolic 70s. Improved with IVF bolus,
Impression
ESRD MWF [facility]
Sepsis
A-fib
Dementia
Plan.
Continue MWF dialysis
Antibiotics
Panculture
Renal dose for ESRD medication
Rule out catheter infection with history
Discussed with dialysis nurse
--- NOTE | 2025-04-11 11:03 | W.PN.NEPH.HD ---
Assessment
-
Tolerating dialysis with mannitol and albumin for blood pressure support
Progress Note - Hemodialysis
-
Date of Service: April 11, 2025
Duration: 30 minutes and 3 hours
Potassium Bath: 3
Calcium Bath: 2.5
Opti-Dialyzer: 160
Ultrafiltration: Other
Blood Flow: 350
Dialysate Flow: 600
Heparin: No
EPO: No
[2025-04-11 11:31] LABS: Hepatitis B Surface Antigen Negative (Negative)
[2025-04-11 11:50] LABS: Glucose - Point of Care 89 mg/dl (70-99)
--- NOTE | 2025-04-11 12:27 | W.PN.HOSP.TC ---
Today's Communication/Plan
-
MRI of the brain
EEG
Echo
Speech evaluation
Assessment / Plan
Assessment / Plan
59 y/o patient had a prolonged hospitalization at [facility] January 11, 2025 to March 17, 2025 for intractable back pain, catheter associated infection, Klebsiella bacteremia. On long-term IV antibiotics cefepime and daptomycin with HD here
for acute change in mental status. Patient was obtunded on arrival and hypotensive. Baseline intermittently confused and bedbound since November per POA. Able to talk to sister on the phone at baseline
CT Head- No acute intracranial abnormality noted.There are mild/moderate periventricular and subcortical white matter hypodensities which are nonspecific, however likely sequelae of chronic small vessel ischemic disease.
CVS: S1-S2 normal
Chest: CTA B/L
Abdomen: Soft, NT / Bowel sounds present
Extremities: No edema, normal pulses
SURVEILLANCE OBSERVER: Patient is awake has dyskinetic movements of his tongue, states his name when asked. Could not give me any further details. Not cooperative for for neuroexam. Does not follow directions
# Acute metabolic encephalopathy
Hypotension/polypharmacy/hypovolemia
Neurotoxicity with cefepime need to be considered also if no other causes found
Check EEG
MRI of the brain
Advance diet as tolerated per speech evaluation and recommendations
Hold melatonin, Haldol, gabapentin, Lexapro
# Elevated troponin
Possible ST depressions on EKG
Possible nonischemic myocardial injury
ECHO
Cardiology consulted
# Chronic CHF-NOS
# History of VRE and Klebsiella bacteremia on IV cefepime and daptomycin with HD
Infectious disease consultation
# ESRD on HD Monday
Left anterior chest wall HD catheter
Nephrology consulted
# Paroxysmal atrial fibrillation-continue Eliquis, metoprolol with parameters
# Pancytopenia
Anemia likely secondary to chronic kidney disease
Needs outpatient follow-up with hematology
Sister thinks he Had a BM Biopsy at [facility]
# Hypertension-continue metoprolol holding parameters
# Hyperlipidemia-Hold statin while on daptomycin
# Hypokalemia-replete with hemodialysis
# Bedbound since November 2024 with intermittent confusion at baseline
# Anxiety and depression-on buspirone 10 mg 3 times daily, Lexapro 10 mg, Haldol 10 mg every 48 hours as needed for agitation as outpatient
# DM- SSI only with accu checks
# Concern for vascular dementia
# Unstageable sacral pressure injury, stage I heel pressure injury
# Amputation of the left toes 1-3
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
# DVT prophylaxis-SCDs
# Full code
LEA's sister Geovanni - Updated today in detail
D/W RN
D/W HDRN at bed side
D/W Cards
time over 50 min
Records requested from [facility]
Part of this note was created using voice recognition system. Occasional wrong word or��sound alike� substitutions may have inadvertently occurred due to the inherent limitations of voice recognition software. If noted kindly bring it to my
attention for correction.
Anticipated Discharge: > 48 hours
Subjective/Interval History
-
Date of Service: April 11, 2025
Objective Data
-
Labs:
Laboratory Results
04/11/25
04:12
WBC 4.0 L
Hgb 9.3 L
Hct 29.4 L
Plt Count 75 L
Sodium 140
Potassium 3.4 L
Chloride 103
Carbon Dioxide 28
BUN 39 H
Creatinine 3.4 H
Glucose 120 H
Calcium 8.5
Vital Signs:
Vital Signs
Temp Pulse Resp BP Pulse Ox
97.2 F 71 24 87/62 100
04/11/25 11:00 04/11/25 06:00 04/11/25 06:00 04/11/25 06:00 04/11/25 04:00
I&O
04/10/25 04/11/25 04/12/25
06:59 06:59 06:59
Intake Total 270 / 270
Balance 270 / 270
[2025-04-11] MEDS: DESENEX/MITRAZOL/ZEASORB 1 APPLIC TOPICAL ×2 (12:43→21:30)
[2025-04-11] MEDS: NSS (PRESERVATIVE FREE) 10 ML IV (12:43)
[2025-04-11] MEDS: PROTONIX IV 40 MG IV (12:43)
--- NOTE | 2025-04-11 14:15 | PTOTSP ---
Speech Language Pathology
Pt seen for clinical bedside swallow evaluation. Attempted oral care, which pt was resistant to. Constant moving in bed in addition to oral movements. Minimal visual fixation or tracking noted. Answered 'yes' when asked if his name was Marcelino
and when asked if he was hungry. No other responses to questions noted. P.O. trials of puree and thin liquids attempted. Poor pre-feeding skills noted with pt not appropriately moving mouth in response to presentation of P.O. trials. Sticking
tongue out against straw. Eventually able to appropriately close lips around straw and took sip. However, pt holding in mouth, swishing liquid, and throwing head/body around. Attempted to suction oral cavity, and then pt spit out bolus. Further
P.O. trials deferred.
Recommend:
(1) Strict NPO
(2) Oral care 4x/day with suctioning as needed
(3) Not appropriate for Aspiration Risk Hydration Protocol (ARHP) at this time given cognitive status
(4) Non-oral meds
(5) HAND I TUBE BENDER to continue to follow
--- NOTE | 2025-04-11 14:49 | CM ---
Patient seen at bedside in IMU. Patient is LTC and Bed bound per [facility] in admissions at [facility]. Therapy updated re; status as well as physician. CM will need to call to patient sister to confirm discharge plan. CM will continue to follow for
discharge planning needs.
Plan; return to [facility], referral sent via all scripts
--- NOTE | 2025-04-11 15:08 | PTOTSP ---
CHART REVIEWED AND COMMUNICATED WITH CASE MANAGEMENT. PER USP, PATIENT IS LONG-TERM CARE AND IS BED BOUND. BASED ON THIS, SKILLED THERAPY NOT INDICATED AT THIS TIME. WILL DISCHARGE FROM P.T. SERVICES.
--- NOTE | 2025-04-11 15:11 | WOUNDNOTE ---
RIGHT HEEL 1965 [id number]
--- NOTE | 2025-04-11 15:12 | WOUNDNOTE ---
LEFT AND RIGHT HEEL 1965 [id number]
--- NOTE | 2025-04-11 15:13 | WOUNDNOTE ---
[facility] RN note: Patient admitted with change in MS
See H&P for complete history.
PMH: ESRD M-W-F, PAD with left toe amputations, vascular dementia, CHF, bedbound since November 2024. Patient was previously at [facility] form December- February 2025 with multiple comorbidities including UTI. Patient now resident at [facility].
Wound Location and type/assessment: Patient admitted with unstageable PI to [facility]. Please see worklist for measurements and details of wound. Scrotum and groin with MASD and fungal appearing skin. Desenex powder has been ordered. Stage 1 to
bilateral heels. Patient incontinent of loose stool during assessment. Care provided with LOUISA George.
Appetite: NPO. Patient is thin appearing. BMI unknown due to undocumented height. Weight 125 lb at time of assessment.
Pressure redistribution devices in place: Centrella Max Air, turning schedule, heels off-loaded with pillows under calves.
Plan: TT with Dr. Anaya regarding plan of care for sacral wound. Will defer to for surgical consult of sacral wound. Plan is to begin cleaning wound with Dakins and applying Santyl to wound daily. Adhesive foam to heels. Continue Desenex
to scrotum and groin. Adhesive foam applied to heels. Heels off-loaded and patient positioned on right semi-side lying position. Will confirm orders with hospitalist and update nurse. Updated care plan and will follow as needed.
Note to case management of equipment requested for discharge:
Recommend follow up at wound care center upon discharge.
--- NOTE | 2025-04-11 15:30 | PTOTSP ---
Orders received. Chart reviewed. Pt from [place]. Per case management note, pt is LTC and bedbound at facility. Skilled OT services not indicated at this time. Will sign off
--- NOTE | 2025-04-11 16:04 | EEG.RPT ---
Electroencephalogram Report
Recording
Date of EE04/11/25
Type of EEG: Routine
Length of EEG recordin minutes
Done with Video Recording: Yes
Patient Status: Inpatient
Recording Conditions: Awake and Drowsy
Hyperventilation Performed: No
Photic Stimulation Performed: Yes
Report
LESS THAN 1 HOUR REPORT
LESS THAN 1 HOUR EEG INTERPRETATION:
Moderately abnormal EEG for age due to diffuse loss of normal organization
CLINICAL CORRELATION:
This study was suggestive of diffuse cortical dysfunction without focal abnormality. No seizures were recorded.
Clinical correlation is advised.
METHODS:
A 21 channel digitized electroencephalogram (EEG) was performed in the ICU. The 10/20 international system of electrode placement was used with ECG and lateral/vertical eye movements recorded. Video was recorded. The Contractually quantitative EEG system
was utilized.
QUALITY OF STUDY:
Good
ELECTROENCEPHALOGRAPHER IMPRESSION(S):
Background
Low amplitude unorganized anterior-posterior voltage gradient of beta activity. At maximal organization there was a theta background, poorly maintained
There were no significant asymmetries of background activity noted.
Sleep
Drowsiness companied by background rhythm attenuation
Photic Stimulation
Failed to activate the record
ECG
Unremarkable
[2025-04-11] MEDS: D5/0.45%NACL 1000 IV (17:41)
[2025-04-11] MEDS: STERILE WATER FOR INJECTION 10 ML IV (17:43)
[2025-04-11] MEDS: MAXIPIME 1000 MG IV (17:43)
[2025-04-11 18:19] LABS: Glucose - Point of Care 91 mg/dl (70-99)
[2025-04-11 18:47] LABS: APTT 37.8 Sec (23.4-35.0)
[2025-04-11] MEDS: HEPARIN 25000 UNITS/250 ML IV (18:48)
[2025-04-11] MEDS: CUBICIN 14 MG IV (18:59)
[2025-04-11] MEDS: KCL 270 MEQ IV (21:29)
[2025-04-11 23:50] LABS: Glucose - Point of Care 115 mg/dl (70-99)
[2025-04-12] VITALS (26 sets, daily range): BP systolic 88–147; BP diastolic 60–94
[2025-04-12] MEDS: NOVOLOG FLEXPEN-MODERATE RESISTANCE SC ×4 (00:14→23:16)
--- NOTE | 2025-04-12 00:22 | PTCARENOTE ---
Pt's rectal temperature was 94.8 F. TANVIR Carrasco notified and Rx received for [place] (see worklist). Pt's current rectal temp is 96 F. Pt is able to answer questions with yes/no answers appropriately and occasionally says short phrases. Patient
responds to his name and when asked where he was he stated the doctors office. neuro checks completed q4. Pt repeatedly taking everything off, restraints applied as a protective intervention.
Patient unable to tolerate any PO intake. TANVIR Carrasco notified that pt is Rx'd PO KCl BID and has not received it today due to inability to tolerate oral intake. Rx rec'd for IV KCl (see MAR).
D5 0.45% NS infusing @ 40 mL/hr. Heparin gtt infusing @ 700u/hr.
[2025-04-12 01:35] LABS: APTT 57.5 Sec (23.4-35.0)
[2025-04-12 03:49] LABS: Hematocrit 26.9 % (39.0-52.0); Hemoglobin 9.0 g/dL (13.0-18.0); Mean Corp Hgb Conc. 33.5 g/dL (33.0-37.0); Mean Corpuscular Volume 87.1 fL (80.0-94.0); Platelet Count 79 10^3/uL (130-400); Red Cell Dist. Width 18.6 % (11.5-14.5)
[2025-04-12 04:36] LABS: Blood Urea Nitrogen 20 mg/dl (9-20); Calcium 9.0 mg/dl (8.4-10.2); Carbon Dioxide 17 mmol/L (22-30); Chloride 106 mmol/L (98-107); Glucose 120 mg/dl (70-99); Magnesium 1.7 mg/dl (1.6-2.3); Potassium 3.3 mmol/L (3.5-5.1); Sodium 139 mmol/L (135-145); eGFR 32.11
[2025-04-12] MEDS: KCL 270 MEQ IV (05:28)
[2025-04-12 05:52] LABS: Glucose - Point of Care 134 mg/dl (70-99)
--- NOTE | 2025-04-12 06:43 | PTCARENOTE ---
Pt's K 3.3 this am. TANVIR Carrasco notified. Rx received for IV KCl which is currently infusing (see MAR).
[2025-04-12] MEDS: DAKIN'S SOLUTION 0.125% 1/4 STRENGTH 1 ML TOPICAL (07:46)
[2025-04-12] MEDS: SANTYL OINTMENT 1 APPLIC TOPICAL (07:46)
[2025-04-12] MEDS: PROTONIX IV 40 MG IV (07:47)
[2025-04-12] MEDS: NSS (PRESERVATIVE FREE) 10 ML IV (07:47)
[2025-04-12] MEDS: DESENEX/MITRAZOL/ZEASORB 1 APPLIC TOPICAL ×2 (07:48→21:19)
[2025-04-12 09:06] LABS: APTT 81.1 Sec (23.4-35.0)
--- NOTE | 2025-04-12 09:43 | W.PN.ID1 ---
Addendum entered and electronically signed by Lorena Plaza MD 04/12/25 11:18:
Dr. Contreras obtained culture result from outside microlab.
01/27/25 Bcx: VRE (sensitive to amp, dapto, linezolid)
Klebsiella aerogenes (Sensitive to: t/sulfa, FQ, tobra, gent, pip/tazo, cefepime (<2), ceftaz (4))
Replace cefepime with Zosyn 2.25g IV q12 for now.
Continue Daptomycin.
Await remaining outside records.
Original Note:
Date of Service
Date of Service: April 12, 2025
Today's Communication
Awaiting outside records.
Assessment / Plan
Encephalopathy - ?TME ?med related (cefepime) ?other
Hx VRE / Klebsiella infection, on dapto / cefepime.
P A-fib (on Eliquis)
ESRD�HD (MWF)
DM
PAD
CHF
Anxiety/depression
Suspected vascular dementia
Recommendations:
Continue with daptomycin and cefepime. Adjust daptomycin dosing given hemodialysis
Awaiting records from [facility] to further review microbiology and course of antibiotic duration and dosing.
Blood cx's neg to date.
Local care to sacral wound.
Monitor white count and temperature curve.
Further recommendations as additional data is returned.
Chief Complaint
-: Other (Change in mental status)
Subjective / Review of Systems
Awake but no responding to my questions.
Vital Signs / Physical Exam
Vital Signs
Vital Signs
Temp Pulse Resp BP Pulse Ox
98.0 F 97 30 119/74 97
04/12/25 07:59 04/12/25 09:00 04/12/25 09:00 04/12/25 09:00 04/12/25 09:24
Physical Exam
Constitutional: Acutely Ill and Chronically Ill
Eyes: No Conjunctival Hemorrhage and Sclera Anicteric
Cardiovascular: Regular Rate and S1/S2
Pulmonary: Clear
Gastrointestinal: Soft, Non Tender, Non Distended and Normal Bowel Sounds
Extremities: Negative Edema
Neurological: Awake and Other (not verbal)
Lines: HD Cath (no erythema)
Objective Data
Lab Data
Lab Results
04/12/25 03:33
04/12/25 03:33
APTT 81.1 Sec (23.4-35.0) H 04/12/25 08:09
Lactic Acid Cancelled 04/10/25 14:15
Total Bilirubin 1.5 mg/dl (0.2-1.3) H 04/10/25 10:12
AST 29 U/L (17-59) 04/10/25 10:12
ALT 19 U/L (0-50) 04/10/25 10:12
Alkaline Phosphatase 185 U/L (38-126) H 04/10/25 10:12
Most recent labs reviewed.
Micro Results:
04/11/25 04:12 MRSA Screen - Final
Nose Staph aureus MRSA
04/10/25 12:30 Blood Culture - Preliminary
Blood/Venous No Growth in 24 hours- Final report to follow
04/10/25 10:12 Blood Culture - Preliminary
Blood/Venous No Growth in 24 hours- Final report to follow
--- NOTE | 2025-04-12 10:46 | W.PN.HOSP.TC ---
Today's Communication/Plan
-
MRI
Await records to be faxed
Assessment / Plan
Assessment / Plan
59 y/o patient had a prolonged hospitalization at [facility] January 11, 2025 to March 17, 2025 for intractable back pain, catheter associated infection, Klebsiella bacteremia. On long-term IV antibiotics cefepime and daptomycin with HD here
for acute change in mental status. Patient was obtunded on arrival and hypotensive. Baseline intermittently confused and bedbound since November per POA. Able to talk to sister on the phone at baseline
CT Head- No acute intracranial abnormality noted.There are mild/moderate periventricular and subcortical white matter hypodensities which are nonspecific, however likely sequelae of chronic small vessel ischemic disease.
CVS: S1-S2 normal
Chest: CTA B/L
Abdomen: Soft, NT / Bowel sounds present
Extremities: No edema, normal pulses
CAMPAIGN MARKETING SPECIALIST: Patient is awake not able to answer questions for me. Dyskinetic movements noted
EEG 04/11/2025--diffuse cortical dysfunction without focal abnormality. No seizures
Echo 04/11/2025-technically difficult study. Normal biventricular size and function without regional WMA. EF 60 to 65%. Aortic sclerosis
# Acute metabolic encephalopathy
Hypotension/polypharmacy/hypovolemia
Neurotoxicity with cefepime need to be considered also if no other causes found
EEG without seizures or status
MRI of the brain pending
Advance diet as tolerated per speech evaluation and recommendations
Hold melatonin, Haldol, gabapentin, Lexapro
# Elevated troponin
Possible ST depressions on EKG
Possible nonischemic myocardial injury
ECHO as above
No further recommendations from cardiology
# Chronic CHF-NOS-on dialysis now
# History of VRE and Klebsiella bacteremia on IV cefepime and daptomycin with HD
Infectious disease consultation appreciated
# ESRD on HD Monday
Left anterior chest wall HD catheter
Nephrology consulted
# Paroxysmal atrial fibrillation-metoprolol to be switched to IV. Patient is n.p.o. therefore Eliquis was switched to heparin drip
# Pancytopenia
Anemia likely secondary to chronic kidney disease
Needs outpatient follow-up with hematology
Sister thinks he Had a BM Biopsy at [place]
# Hypertension-metoprolol IV
# Hyperlipidemia-Hold statin while on daptomycin
# Hypokalemia-replete
# Bedbound since November 2024 with intermittent confusion at baseline
# Anxiety and depression-on buspirone 10 mg 3 times daily, Lexapro 10 mg, Haldol 10 mg every 48 hours as needed for agitation as outpatient. Currently p.o. medicines are on hold as patient is n.p.o.
# DM- SSI only with accu checks
# Concern for vascular dementia
# Unstageable sacral pressure injury, stage I B/L heel pressure injury-turn patient every 2 hours and also continue with wound care
# Amputation of the left toes 1-3
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
# DVT prophylaxis-Heparin gtt
# Full code
POJack's sister Geovanni
D/W RN at bedside
Records requested from [facility]-still not received
Called [facility] microbiology department. They were able to locate a blood culture from January 27, 2025 with Klebsiella and VRE. Requested to fax the results to me
Part of this note was created using voice recognition system. Occasional wrong word or��sound alike� substitutions may have inadvertently occurred due to the inherent limitations of voice recognition software. If noted kindly bring it to my
attention for correction.
Anticipated Discharge: > 48 hours
Subjective/Interval History
-
Date of Service: April 12, 2025
Objective Data
-
Labs:
Laboratory Results
04/12/25 04/12/25 04/12/25
01:14 03:33 08:09
WBC 2.9 L
Hgb 9.0 L
Hct 26.9 L
Plt Count 79 L
APTT 57.5 H 81.1 H
Sodium 139
Potassium 3.3 L
Chloride 106
Carbon Dioxide 17 L
BUN 20
Creatinine 2.3 H
Glucose 120 H
Calcium 9.0
04/12/25
13:00
WBC
Hgb
Hct
Plt Count
APTT Pending
Sodium
Potassium
Chloride
Carbon Dioxide
BUN
Creatinine
Glucose
Calcium
Vital Signs:
Vital Signs
Temp Pulse Resp BP Pulse Ox
98.0 F 97 30 119/74 97
04/12/25 07:59 04/12/25 09:00 04/12/25 09:00 04/12/25 09:00 04/12/25 09:24
I&O
04/11/25 04/12/25 04/13/25
06:59 06:59 06:59
Intake Total 270 / 270 850 / 850
Output Total 0 / 0
Balance 270 / 270 850 / 850
--- NOTE | 2025-04-12 11:05 | W.PN.NEPH.PH ---
Today's Communication / Plan
-
No acute need for dialysis today
Assessment/Plan
-
59M [facility] resident ESRD MWF pafcollin Sol[facility]quis HTN HLD DM PAD toe amputations CHF Anxiety Depression suspected underlying vascular dementia recent prolonged hospitalization [facility] January 11 to March 17 for intractable back pain catheter
associated infection VR and Klebsiella bacteremia (following which he was discharged to [facility] with fdc IV abx Cefipime and Daptomycin to be given with HD- sent by SNF for evaluation AMS, normally AOx3 at baseline, essentially obtunded on
arrival with associate severe hypotension systolic 70s. Improved with IVF bolus,
Impression
ESRD MWF [facility]
Sepsis
A-fib
Dementia/AMS
Plan.
Continue MWF dialysis
Antibiotics
Panculture= negative blood cultures today with positive sputum culture
Renal dose for ESRD medication
Rule out catheter infection with history= negative cultures
MRI pending with continued altered mental status from baseline
-
-
Date of Service: April 12, 2025
CC / HPI / ROS
-
Chief Complaint:
AMS
History of Present Illness:
ESRD presents with altered mental status
Review of Systems:
Patient is unresponsive but awake
Unable to obtain review of systems
Labs
-
Labs:
WBC 2.9 10^3/uL (4.8-10.8) L 04/12/25 03:33
RBC 3.09 10^6/uL (4.70-6.10) L 04/12/25 03:33
Hgb 9.0 g/dL (13.0-18.0) L 04/12/25 03:33
Hct 26.9 % (39.0-52.0) L 04/12/25 03:33
Plt Count 79 10^3/uL (130-400) L 04/12/25 03:33
Sodium 139 mmol/L (135-145) 04/12/25 03:33
Potassium 3.3 mmol/L (3.5-5.1) L 04/12/25 03:33
Chloride 106 mmol/L (98-107) 04/12/25 03:33
Carbon Dioxide 17 mmol/L (22-30) L 04/12/25 03:33
BUN 20 mg/dl (9-20) 04/12/25 03:33
Creatinine 2.3 mg/dL (0.7-1.3) H 04/12/25 03:33
eGFR 32.11 04/12/25 03:33
Glucose 120 mg/dl (70-99) H 04/12/25 03:33
Calcium 9.0 mg/dl (8.4-10.2) 04/12/25 03:33
Phosphorus 5.5 mg/dl (2.5-4.5) H 04/10/25 10:12
Albumin 3.2 g/dl (3.5-5.0) L 04/10/25 10:12
Physical Exam
-
Vital Signs:
Vital Signs
Temp Pulse Resp BP Pulse Ox
98.0 F 97 30 119/74 97
04/12/25 07:59 04/12/25 09:00 04/12/25 09:00 04/12/25 09:00 04/12/25 09:24
Respiratory:: Bilateral: Coarse
Lung Excursion:: Normal
Abdomen:: Soft
Bowel Sounds:: Normal
Extremity Edema:: None: Bilateral:
--- NOTE | 2025-04-12 11:08 | W.PN.UPDATE ---
Update Note
Progress Note Update
Microbiology report from [facility] reviewed. Per discussion with infectious disease will replace cefepime with Zosyn for now and watch
[2025-04-12] MEDS: LOPRESSOR IV (12:01)
[2025-04-12 12:16] LABS: Glucose - Point of Care 128 mg/dl (70-99)
[2025-04-12] MEDS: ZOSYN 50 IV ×2 (15:00→22:47)
[2025-04-12 15:32] LABS: APTT 71.0 Sec (23.4-35.0)
[2025-04-12 18:31] LABS: Glucose - Point of Care 153 mg/dl (70-99)
[2025-04-12] MEDS: LOPRESSOR 5 MG IV (18:41)
[2025-04-12] MEDS: NOVOLOG FLEXPEN-MODERATE RESISTANCE 1 UNITS SC (18:41)
[2025-04-12] MEDS: HEPARIN 25000 UNITS/250 ML IV (22:38)
[2025-04-12] MEDS: D5/0.45%NACL 1000 IV (22:47)
[2025-04-12 23:13] LABS: Glucose - Point of Care 135 mg/dl (70-99)
[2025-04-12 23:28] LABS: APTT 111.6 Sec (23.4-35.0)
[2025-04-13] VITALS (32 sets, daily range): BP systolic 78–138; BP diastolic 52–85
[2025-04-13] MEDS: LOPRESSOR IV ×2 (00:14→18:37)
[2025-04-13] MEDS: NOVOLOG FLEXPEN-MODERATE RESISTANCE SC ×2 (05:08→23:05)
[2025-04-13] MEDS: ZOSYN 50 IV ×3 (05:09→22:40)
[2025-04-13 05:15] LABS: Glucose - Point of Care 137 mg/dl (70-99)
[2025-04-13] MEDS: LOPRESSOR 5 MG IV (06:10)
[2025-04-13 07:16] LABS: APTT 93.7 Sec (23.4-35.0)
[2025-04-13 07:26] LABS: Hematocrit 26.7 % (39.0-52.0); Hemoglobin 8.9 g/dL (13.0-18.0); Mean Corp Hgb Conc. 33.3 g/dL (33.0-37.0); Mean Corpuscular Volume 88.7 fL (80.0-94.0); Platelet Count 68 10^3/uL (130-400); Red Cell Dist. Width 18.9 % (11.5-14.5)
[2025-04-13 07:45] LABS: Blood Urea Nitrogen 26 mg/dl (9-20); Calcium 8.8 mg/dl (8.4-10.2); Carbon Dioxide 20 mmol/L (22-30); Chloride 110 mmol/L (98-107); Glucose 134 mg/dl (70-99); Magnesium 1.7 mg/dl (1.6-2.3); Potassium 3.3 mmol/L (3.5-5.1); Sodium 142 mmol/L (135-145); eGFR 22.44
--- NOTE | 2025-04-13 08:56 | W.PN.HOSP.TC ---
Today's Communication/Plan
-
MRI of the brain
Watch patient off of cefepime
IV fluids and heparin
IV medicines while patient is n.p.o.
N.p.o. until speech clears the patient
Assessment / Plan
Assessment / Plan
59 y/o patient had a prolonged hospitalization at [facility] January 11, 2025 to March 17, 2025 for intractable back pain, catheter associated infection, Klebsiella bacteremia. On long-term IV antibiotics cefepime and daptomycin with HD here
for acute change in mental status. Patient was obtunded on arrival and hypotensive. Baseline intermittently confused and bedbound since November per POA. Able to talk to sister on the phone at baseline
CT Head- No acute intracranial abnormality noted.There are mild/moderate periventricular and subcortical white matter hypodensities which are nonspecific, however likely sequelae of chronic small vessel ischemic disease.
CVS: S1-S2 normal
Chest: CTA B/L
Abdomen: Soft, NT / Bowel sounds present
Extremities: No edema
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 Dyskinetic movements noted, not following directions
EEG 04/11/2025--diffuse cortical dysfunction without focal abnormality. No seizures
Echo 04/11/2025-technically difficult study. Normal biventricular size and function without regional WMA. EF 60 to 65%. Aortic sclerosis
# Acute metabolic encephalopathy
Hypotension/polypharmacy/hypovolemia
EEG without seizures or status
MRI of the brain pending
Advance diet as tolerated per speech evaluation and recommendations
Hold melatonin, Haldol, gabapentin, Lexapro
Cefepime was discontinued and changed to Zosyn yesterday 04/12/2025
Patient is still not able to follow directions or answer questions
# Diarrhea-check stool studies
# Elevated troponin
Possible ST depressions on EKG
Possible nonischemic myocardial injury
ECHO as above
No further recommendations from cardiology
# Chronic CHF-NOS-on dialysis now
# History of VRE and Klebsiella bacteremia on IV Zosyn and daptomycin with HD
Infectious disease consultation appreciated
# ESRD on HD Monday
Left anterior chest wall HD catheter
Nephrology consulted
# Paroxysmal atrial fibrillation-metoprolol to be switched to IV. Patient is n.p.o. therefore Eliquis was switched to heparin drip
# Pancytopenia
Anemia likely secondary to chronic kidney disease
Needs outpatient follow-up with hematology
Sister thinks he Had a BM Biopsy at [place]
# Hypertension-metoprolol IV
# Hyperlipidemia-Hold statin while on daptomycin
# Hypokalemia-replete
# Bedbound since November 2024 with intermittent confusion at baseline
# Anxiety and depression-on buspirone 10 mg 3 times daily, Lexapro 10 mg, Haldol 10 mg every 48 hours as needed for agitation as outpatient. Currently p.o. medicines are on hold as patient is n.p.o.
# DM- SSI only with accu checks
# Concern for vascular dementia
# Unstageable sacral pressure injury, stage I B/L heel pressure injury-turn patient every 2 hours and also continue with wound care
# Amputation of the left toes 1-3
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
# DVT prophylaxis-Heparin gtt
# Full code
LEA's sister Geovanni updated regarding patient's condition.
D/W RN at bedside
Records requested from [facility]-still not received
Called [facility] microbiology department. Blood culture results were sent over we still have not received discharge summary from medical records.
Part of this note was created using voice recognition system. Occasional wrong word or��sound alike� substitutions may have inadvertently occurred due to the inherent limitations of voice recognition software. If noted kindly bring it to my
attention for correction.
Anticipated Discharge: > 48 hours
Subjective/Interval History
-
Date of Service: April 13, 2025
Objective Data
-
Labs:
Laboratory Results
08/23/25 08/24/25 08/24/25
23:03 06:28 12:30
WBC 3.2 L
Hgb 8.9 L
Hct 26.7 L
Plt Count 68 L
APTT 111.6 H 93.7 H Pending
Sodium 142
Potassium 3.3 L
Chloride 110 H
Carbon Dioxide 20 L
BUN 26 H
Creatinine 3.1 H
Glucose 134 H
Calcium 8.8
Vital Signs:
Vital Signs
Temp Pulse Resp BP Pulse Ox
98.4 F 89 22 97/62 99
04/13/25 08:15 04/13/25 07:11 04/13/25 07:11 04/13/25 07:11 04/13/25 07:11
I&O
04/12/25 04/13/25 04/14/25
06:59 06:59 06:59
Intake Total 850 / 850 1130 / 1130
Output Total 0 / 0 0 / 0
Balance 850 / 850 1130 / 1130
[2025-04-13] MEDS: PROTONIX IV 40 MG IV (09:04)
[2025-04-13] MEDS: NSS (PRESERVATIVE FREE) 10 ML IV (09:05)
[2025-04-13] MEDS: DAKIN'S SOLUTION 0.125% 1/4 STRENGTH 473 ML TOPICAL (09:05)
[2025-04-13] MEDS: DESENEX/MITRAZOL/ZEASORB 1 APPLIC TOPICAL ×2 (09:05→22:40)
[2025-04-13] MEDS: SANTYL OINTMENT 1 APPLIC TOPICAL (09:06)
--- NOTE | 2025-04-13 09:10 | W.PN.ID1 ---
Date of Service
Date of Service: April 13, 2025
Today's Communication
Consolidate daptomycin and cefepime to Zosyn 2.25g IV q12 for now.
Assessment / Plan
Encephalopathy - ?TME ?med related (cefepime) ?other
Hx VRE / Klebsiella infection on dapto / cefepime, as per OSH
Vascular dementia
P A-fib (on Eliquis)
ESRD�HD (MWF)
DM
PAD
CHF
Anxiety/depression
Recommendations:
Dr. Contreras called obtained culture result from outside microlab.
01/27/25 Bcx: VRE (sensitive to amp, dapto, linezolid)
Klebsiella aerogenes (Sensitive to: t/sulfa, FQ, tobra, gent, pip/tazo, cefepime (<2), ceftaz (4))
Consolidate daptomycin and cefepime to Zosyn 2.25g IV q12 for now, in case cefepime contributing to encephalopathy.
Will review extensive outside medical records more thoroughly tomorrow (Monday).
Blood cx's neg to date.
Local care to sacral wound.
Monitor white count and temperature curve.
Chief Complaint
-: Other (Change in mental status)
Subjective / Review of Systems
Confused
Vital Signs / Physical Exam
Vital Signs
Vital Signs
Temp Pulse Resp BP Pulse Ox
98.4 F 89 22 97/62 99
04/13/25 08:15 04/13/25 07:11 04/13/25 07:11 04/13/25 07:11 04/13/25 07:11
Physical Exam
Constitutional: Chronically Ill
Eyes: No Conjunctival Hemorrhage and Sclera Anicteric
Cardiovascular: Regular Rate and S1/S2
Pulmonary: Clear
Gastrointestinal: Soft, Non Tender, Non Distended and Normal Bowel Sounds
Extremities: Negative Edema
Neurological: Awake and Other (not verbal)
Lines: HD Cath (no erythema)
Objective Data
Lab Data
Lab Results
04/13/25 06:28
04/13/25 06:28
APTT 93.7 Sec (23.4-35.0) H 04/13/25 06:28
Lactic Acid Cancelled 04/10/25 14:15
Total Bilirubin 1.5 mg/dl (0.2-1.3) H 04/10/25 10:12
AST 29 U/L (17-59) 04/10/25 10:12
ALT 19 U/L (0-50) 04/10/25 10:12
Alkaline Phosphatase 185 U/L (38-126) H 04/10/25 10:12
Most recent labs reviewed.
Micro Results:
04/10/25 12:30 Blood Culture - Preliminary
Blood/Venous No Growth in 48 hours- Final report to follow
04/10/25 10:12 Blood Culture - Preliminary
Blood/Venous No Growth in 48 hours- Final report to follow
04/11/25 04:12 MRSA Screen - Final
Nose Staph aureus MRSA
[2025-04-13] MEDS: KCL 260 MEQ IV (09:14)
[2025-04-13] MEDS: D5LR 1000 IV (09:14)
[2025-04-13] MEDS: THIAMINE INJECTION 100 MG IV (09:19)
--- NOTE | 2025-04-13 10:18 | CM ---
Pt seen bedside in IMU, was sleeping. Per prior CM notes, plan will be to return to [facility] when medically stable.
CM will continue to follow.
--- NOTE | 2025-04-13 10:32 | PTCARENOTE ---
Addendum entered by Marlon Osorio RN 04/13/25 15:34:
Patient having episodes of apnea where he appears to hold his breath for ~15-30 seconds and sats drop to 60%. Does not follow commands to take a breath when prompted to. Once patient takes a breath on his own, sats return to 100% on RA.
Original Note:
Patient nonverbal at this time and not answering questions or following commands. PERRLA@1. Unable to safely give PO medications, aware. Mouth care provided. Q2T. Wound care done. VSS. Heparin infusing per protocol. Will continue to closely
monitor.
[2025-04-13 12:11] LABS: Glucose - Point of Care 171 mg/dl (70-99)
[2025-04-13] MEDS: LOPRESSOR 2.5 MG IV (12:21)
[2025-04-13] MEDS: NOVOLOG FLEXPEN-MODERATE RESISTANCE 1 UNITS SC ×2 (12:23→19:32)
[2025-04-13 13:01] LABS: APTT 106.2 Sec (23.4-35.0)
[2025-04-13] MEDS: VALIUM INJECTION 2.5 MG IV (13:25)
--- NOTE | 2025-04-13 16:13 | W.PN.NEPH.PH ---
Today's Communication / Plan
-
Dialysis tomorrow
Assessment/Plan
-
59M [facility] resident ESRD MWF pafib Eliquis HTN HLD DM PAD toe amputations CHF Anxiety Depression suspected underlying vascular dementia recent prolonged hospitalization [facility] January 11 to March 17 for intractable back pain catheter
associated infection VR and Klebsiella bacteremia (following which he was discharged to [facility] with terminal system operator IV abx Cefipime and Daptomycin to be given with HD- sent by SNF for evaluation AMS, normally AOx3 at baseline, essentially obtunded on
arrival with associate severe hypotension systolic 70s. Improved with IVF bolus,
Impression
ESRD MWF [facility]
Sepsis
A-fib
Dementia/AMS
Plan.
Continue MWF dialysis
Antibiotics
Panculture= negative blood cultures to date with positive sputum culture
Renal dose for ESRD medication
Rule out catheter infection with history= negative cultures
MRI pending with continued altered mental status from baseline
Infectious disease noted
Dialysis ordered for tomorrow
-
-
Date of Service: April 13, 2025
CC / HPI / ROS
-
Chief Complaint:
AMS
History of Present Illness:
ESRD presents with altered mental status
Review of Systems:
Patient is unresponsive but awake
Unable to obtain review of systems
Labs
-
Labs:
WBC 3.2 10^3/uL (4.8-10.8) L 04/13/25 06:28
RBC 3.01 10^6/uL (4.70-6.10) L 04/13/25 06:28
Hgb 8.9 g/dL (13.0-18.0) L 04/13/25 06:28
Hct 26.7 % (39.0-52.0) L 04/13/25 06:28
Plt Count 68 10^3/uL (130-400) L 04/13/25 06:28
Sodium 142 mmol/L (135-145) 04/13/25 06:28
Potassium 3.3 mmol/L (3.5-5.1) L 04/13/25 06:28
Chloride 110 mmol/L (98-107) H 04/13/25 06:28
Carbon Dioxide 20 mmol/L (22-30) L 04/13/25 06:28
BUN 26 mg/dl (9-20) H 04/13/25 06:28
Creatinine 3.1 mg/dL (0.7-1.3) H 04/13/25 06:28
eGFR 22.44 04/13/25 06:28
Glucose 134 mg/dl (70-99) H 04/13/25 06:28
Calcium 8.8 mg/dl (8.4-10.2) 04/13/25 06:28
Phosphorus 5.5 mg/dl (2.5-4.5) H 04/10/25 10:12
Albumin 3.2 g/dl (3.5-5.0) L 04/10/25 10:12
Physical Exam
-
Vital Signs:
Vital Signs
Temp Pulse Resp BP Pulse Ox
98.7 F 82 11 100/78 97
04/13/25 15:30 04/13/25 15:00 04/13/25 15:00 04/13/25 15:00 04/13/25 15:00
Respiratory:: Bilateral: Coarse
Lung Excursion:: Normal
Abdomen:: Soft
Bowel Sounds:: Normal
Extremity Edema:: None: Bilateral:
[2025-04-13 18:13] LABS: Glucose - Point of Care 167 mg/dl (70-99)
[2025-04-13 23:15] LABS: Glucose - Point of Care 140 mg/dl (70-99)
[2025-04-14] VITALS (32 sets, daily range): BP systolic 83–136; BP diastolic 56–91
[2025-04-14] MEDS: LOPRESSOR IV ×3 (00:04→11:14)
[2025-04-14] MEDS: HEPARIN 25000 UNITS/250 ML IV (03:40)
[2025-04-14] MEDS: ZOSYN 50 IV ×3 (05:09→22:08)
[2025-04-14 05:40] LABS: Glucose - Point of Care 145 mg/dl (70-99)
[2025-04-14] MEDS: NOVOLOG FLEXPEN-MODERATE RESISTANCE SC ×3 (05:42→17:49)
[2025-04-14 05:44] LABS: APTT 138.7 Sec (23.4-35.0)
[2025-04-14 05:45] LABS: Hematocrit 26.7 % (39.0-52.0); Hemoglobin 8.2 g/dL (13.0-18.0); Mean Corp Hgb Conc. 30.7 g/dL (33.0-37.0); Mean Corpuscular Volume 96.0 fL (80.0-94.0); Platelet Count 47 10^3/uL (130-400); Red Cell Dist. Width 19.6 % (11.5-14.5)
[2025-04-14 05:50] LABS: Blood Urea Nitrogen 33 mg/dl (9-20); Calcium 8.9 mg/dl (8.4-10.2); Carbon Dioxide 27 mmol/L (22-30); Chloride 111 mmol/L (98-107); Glucose 151 mg/dl (70-99); Magnesium 1.9 mg/dl (1.6-2.3); Potassium 3.5 mmol/L (3.5-5.1); Sodium 144 mmol/L (135-145); eGFR 17.04
--- NOTE | 2025-04-14 06:16 | PTCARENOTE ---
Pt lethargic but responsive to touch. Groans in response to painful stimuli, but otherwise nonverbal overnight. Neuro checks completed q4. NSR on monitor, hr 70-80s. Blood pressure soft overnight with sbp 80-90s and ENTRY LEVEL ACCOUNTANT made aware. SpO2 95% on RA.
Restraints in place as a protective intervention. IVF infusing. Heparin gtt on hold currently per protocol, to be resumed at 0655. Hygiene completed. VS and assessment as documented. Pt resting in bed with bed alarm on.
[2025-04-14] MEDS: NSS (PRESERVATIVE FREE) 10 ML IV (08:02)
[2025-04-14] MEDS: DESENEX/MITRAZOL/ZEASORB 1 APPLIC TOPICAL ×2 (08:02→20:10)
[2025-04-14] MEDS: DAKIN'S SOLUTION 0.125% 1/4 STRENGTH 473 ML TOPICAL (08:03)
[2025-04-14] MEDS: PROTONIX IV 40 MG IV (08:03)
[2025-04-14] MEDS: SANTYL OINTMENT 1 APPLIC TOPICAL (08:03)
[2025-04-14] MEDS: THIAMINE INJECTION 100 MG IV (08:03)
[2025-04-14] MEDS: RETACRIT 10000 UNITS IV (09:14)
--- NOTE | 2025-04-14 09:19 | W.PN.NEPH.HD ---
Assessment
-
Seen on HD. unresponsive. will not open eyes for me. VSS, access ok
no po intake, on D5LR low rate.
MRI suggests new infarcts subacute/acute
remains pancytopenic
abx changed to zosyn
Progress Note - Hemodialysis
-
Date of Service: April 14, 2025
Duration: 30 minutes and 3 hours
Potassium Bath: 4
Calcium Bath: 2.5
Opti-Dialyzer: 160
Ultrafiltration: Other (none)
Blood Flow: 400
Dialysate Flow: 600
Heparin: 0
EPO: 74335 units
--- NOTE | 2025-04-14 09:37 | W.PN.CD ---
Addendum entered and electronically signed by Zackary Garcia MD 04/14/25 18:14:
I saw and evaluated the patient, and I provided the substantive portion of the medical decision making.
I reviewed and agree with the note by TANVIR Gonzalez and it accurately reflects our care.
I personally performed the medical decision making of the this encounter and my assessment and plan is below:
Strokes: High risk. His altered mental status and n.p.o. status leann him is a poor candidate to progress to transesophageal echocardiogram. Because the patient has known atrial fibrillation I do not think there is a roche to do the transesophageal
echocardiogram. His blood cultures have cleared and so there is less compelling need to be concerned for endocarditis. Given his end-stage renal disease I am not impressed with the low-level troponin elevation.
Please call us back as needed.
Original Note:
Today's Communication / Plan
-
Patient not appropriate for ALENA at this time- see below.
Impression / Plan
-
59 y/o male with AFIB on Eliquis, HTN, HLD, ESRD on HD, PAD (toe amputation), anxiety/depression, anemia, suspected vascular dementia, and DM who presented from facility with change in mental status with somnolence and not responding to commands. He
was hypotensive requiring IVF. Per chart, he had a prolonged hospitalization at [facility] with klebsiella bacteremia related to catheter infection. We were initially consulted for abnormal EKG and troponin. Echo was normal and no further w/u was
planned. However, we were called back to evaluate patient for ALENA since strokes noted on imaging.
Strokes:
-this diagnosis is threat to bodily function
-MRI revealed small foci of restricted diffusion involving the bilateral frontoparietal white matter, the left frontal white matter more anteriorly in the right basal ganglia consistent with acute/subacute infarctions. These may be embolic in
nature given the multivessel territory. Mild atrophy with sequelae of moderate chronic small vessel ischemic disease. Prominent blooming artifact along the left paramedian parietal lobe which is likely sequelae of prior hemorrhage/hematoma. Also
recent bacteremia as below. Neurology is consulted and asked for consideration for ALENA. However, currently patient is somnolent with decreased LOC and NPO and not safe/appropriate for ALENA at this time. Additionally, would not manager exchange at
this point as poor candidate for surgical intervention if needed. Patient also has known AFIB on Eliquis as OP. He is in SR on telemetry here.
Altered MS:
-w/u management per primary
-MRI as above
Infectious process/recent bacteremia:
-management per ID
-blood cx here are negative
-on IV ABX
Abnormal troponin: 0.056
-suspect acute non-ischemic myocardial injury in setting of renal disease and hypotension, acute illness
-Echo this admit: Overall technically difficult study. Normal biventricular size and function without regional wall motion abnormality. LVEF 60-65%. Aortic sclerosis.
Abnormal EKG:
-unknown baseline
-echo as above
ESRD:
-on HD currently
-nephro following
PAF:
-stable in SR here, getting IV BB while NPO, though often held for BP limitations.
-on Eliquis as OP, but on heparin here, which requires intensive monitoring. However, I see that platelets are low, so may need to reconsider this- defer to primary/neuro in this complex patient with strokes, thrombocytopenia.
Physical Exam
Vital Signs/Labs
Vital Signs
Temp Pulse Resp BP Pulse Ox
97.9 F 75 14 96/70 99
04/14/25 08:20 04/14/25 06:04 04/14/25 06:00 04/14/25 06:04 04/14/25 05:00
04/13/25 04/14/25 04/15/25
06:59 06:59 06:59
Actual Weight 56.6 kg 57.2 kg
04/14/25 05:22
04/14/25 05:22
APTT 138.7 Sec (23.4-35.0) H 04/14/25 05:22
Magnesium 1.9 mg/dl (1.6-2.3) 04/14/25 05:22
Physical Exam
Constitutional: No acute distress
EENT: Anicteric
Cardiovascular: Rhythm & rate is regular
Respiratory: Respiratory effort normal and Lungs clear to auscul.
Neuro/Psych: Other (not opening eyes for me, does seem to respond to name)
Data Reviewed
-
Date of Service: April 14, 2025
EKG: Other (tele SR)
Labs: Labs Reviewed by me
--- NOTE | 2025-04-14 09:42 | W.PN.HOSP.TC ---
Addendum entered and electronically signed by Pedro Contreras MD 04/14/25 15:31:
Seen and examined the patient with the resident. Agree with the plan except for the changes outlined in my notes
Patient not interactive today prefers to be sleeping
Cardiovascular system S1-S2 appreciated,
Chest clear to auscultation
Abdomen soft and nontender
No pedal edema
DIP BRAZIER-no interaction
MRI of the brain-small foci of restricted diffusion along the bilateral frontoparietal white matter and left frontal white matter more anteriorly in the right basal ganglia consistent with acute/subacute infarctions that may be embolic. Mild
atrophy. Left moderate chronic small vessel ischemic disease. Prominent blooming artifact in the left paramedian parietal lobe which is likely sequela of prior hemorrhage/hematoma
EEG 04/11/2025--diffuse cortical dysfunction without focal abnormality. No seizures
Echo 04/11/2025-technically difficult study. Normal biventricular size and function without regional WMA. EF 60 to 65%. Aortic sclerosis
# Acute metabolic encephalopathy
Likely secondary to embolic strokes
EEG without seizures or status
MRI of the brain as above.
Advance diet as tolerated per speech evaluation and recommendations
Hold melatonin, Haldol, gabapentin, Lexapro
Cefepime was discontinued and changed to Zosyn 04/12/2025
Currently blood cultures are negative
Patient is still not able to follow directions or answer questions
# Diarrhea-C. difficile negative
# Elevated troponin
Possible ST depressions on EKG
Possible nonischemic myocardial injury
ECHO as above
No further recommendations from cardiology
# Chronic CHF-NOS-on dialysis now
# History of VRE and Klebsiella bacteremia on IV Zosyn and daptomycin with HD
Interestingly patient was not discharged on antibiotics from [facility]. Unclear when antibiotics were restarted
Infectious disease consultation appreciated
# ESRD on HD Monday
Left anterior chest wall HD catheter
Nephrology consulted
# Paroxysmal atrial fibrillation-metoprolol to be switched to IV. Patient is n.p.o. therefore Eliquis was switched to heparin drip
# Pancytopenia
Anemia likely secondary to chronic kidney disease
Needs outpatient follow-up with hematology
Had a BM Biopsy as well as immunofixation studies to rule out multiple myeloma. At [facility]. He was advised to follow-up with hematology as outpatient
# Hypertension-metoprolol IV
# Hyperlipidemia-Hold statin while on daptomycin
# Hypokalemia-repleted
# Bedbound since November 2024 with intermittent confusion at baseline
# Anxiety and depression-on buspirone 10 mg 3 times daily, Lexapro 10 mg, Haldol 10 mg every 48 hours as needed for agitation as outpatient. Currently p.o. medicines are on hold as patient is n.p.o.
# DM- SSI only with accu checks
# Concern for vascular dementia
# Unstageable sacral pressure injury, stage I B/L heel pressure injury-turn patient every 2 hours and also continue with wound care
# Amputation of the left toes 1-3
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
# DVT prophylaxis-Heparin gtt
# Full code
Left a message for power of attorney at law/sister
Outpatient records reviewed
Time spent more than 50 minutes
Original Note:
Today's Communication/Plan
-
Dialysis
Neurology appreciated for MRI findings
Assessment / Plan
Assessment / Plan
59 y/o patient had a prolonged hospitalization at [facility] January 11, 2025 to March 17, 2025 for intractable back pain, catheter associated infection, Klebsiella bacteremia. On long-term IV antibiotics cefepime and daptomycin with HD here
for acute change in mental status. Patient was obtunded on arrival and hypotensive. Baseline intermittently confused and bedbound since November per POA. Able to talk to sister on the phone at baseline
CT Head- No acute intracranial abnormality noted.There are mild/moderate periventricular and subcortical white matter hypodensities which are nonspecific, however likely sequelae of chronic small vessel ischemic disease.
EEG 04/11/2025--diffuse cortical dysfunction without focal abnormality. No seizures
Echo 04/11/2025--technically difficult study. Normal biventricular size and function without regional WMA. EF 60 to 65%. Aortic sclerosis
Brain MRI 04/13/25-- There are small foci of restricted diffusion involving the bilateral frontoparietal white matter, the left frontal white matter more anteriorly in the right basal ganglia consistent with acute/subacute infarctions. These may be
embolic in nature given the multivessel territory.
Mild atrophy with sequelae of moderate chronic small vessel ischemic disease.
Prominent blooming artifact along the left paramedian parietal lobe which is likely sequelae of prior hemorrhage/hematoma.
# CVA
--MRI of the brain revealed multiple small foci in bilateral frontotemporal parietal white matter and left frontal white matter anteriorly in the right basal ganglia consistent with acute/subacute infarcts
--Neurology appreciated
--Appears to be embolic in nature
--Appreciate cardiology for ALENA to eval for endocarditis - cardiology will do ALENA once AAO. High risk of aspiration due to obtunded state.
# Acute metabolic encephalopathy
--Hypotension/polypharmacy/hypovolemia
--EEG without seizures or status
--Advance diet as tolerated per speech evaluation and recommendations
--Hold melatonin, Haldol, gabapentin, Lexapro
--Cefepime was discontinued and changed to Zosyn yesterday 04/12/2025
--Patient is still not able to follow directions or answer questions
# Diarrhea
--c. diff (-)
# Elevated troponin
--Possible ST depressions on EKG
--Possible nonischemic myocardial injury
--ECHO as above
--No further recommendations from cardiology - likely baseline trop in setting of ESRD
# Chronic CHF-NOS-on dialysis now
# History of VRE and Klebsiella bacteremia
--on IV Zosyn with HD
--Infectious disease appreciated
# ESRD on HD Monday
--Left anterior chest wall HD catheter
--Nephrology appreciated
# Paroxysmal atrial fibrillation
--metoprolol to be switched to IV. Patient is n.p.o. therefore Fredrick was switched to heparin drip
# Pancytopenia
--Anemia likely secondary to chronic kidney disease
--Needs outpatient follow-up with hematology
--Sister thinks he Had a BM Biopsy at [facility]
# Hypertension-metoprolol IV
# Hyperlipidemia-Hold statin while on daptomycin
# Hypokalemia-replete
# Bedbound since November 2024 with intermittent confusion at baseline
# Anxiety and depression
--on buspirone 10 mg 3 times daily, Lexapro 10 mg, Haldol 10 mg every 48 hours as needed for agitation as outpatient.
--Currently p.o. medicines are on hold as patient is n.p.o.
# DM- SSI only with accu checks
# Concern for vascular dementia
# Unstageable sacral pressure injury, stage I B/L heel pressure injury-turn patient every 2 hours and also continue with wound care
# Amputation of the left toes 1-3
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
DVT prophylaxis-Heparin gtt
Full code
Will need to consider nutrition options as he has been NPO the duration of his hospital stay thus far. (admitted 04/10)
LEA's sister Geovanni
Anticipated Discharge: > 48 hours
Subjective/Interval History
-
Date of Service: April 14, 2025
Obtunded. Moves head in response to calling name, but does not open eyes or acknowlege questions.
Objective Data
-
Labs:
Laboratory Results
04/14/25 04/14/25
05:22 13:00
WBC 5.8
Hgb 8.2 L
Hct 26.7 L
Plt Count 47 L D
APTT 138.7 H Pending
Sodium 144
Potassium 3.5
Chloride 111 H
Carbon Dioxide 27
BUN 33 H
Creatinine 3.9 H
Glucose 151 H
Calcium 8.9
Vital Signs:
Vital Signs
Temp Pulse Resp BP Pulse Ox
97.9 F 75 14 96/70 99
04/14/25 08:20 04/14/25 06:04 04/14/25 06:00 04/14/25 06:04 04/14/25 05:00
I&O
04/13/25 04/14/25 04/15/25
06:59 06:59 06:59
Intake Total 1130 / 1130 580 / 580
Output Total 0 / 0 200 / 200
Balance 1130 / 1130 380 / 380
Review of Systems
-
Unable to obtain full review of systems at this time due to: Dementia and Acuity
Physical Exam
-
General: Appears Chronically Ill
HEENT: Normocephalic
Respiratory: Clear to Auscultation
Cardiac: Regular Rhythm and S1/S2
GI: Soft, Nondistended and Normal Bowel Sounds
Musculoskeletal: No Cyanosis, No Edema and Other (missing toes bilaterally )
Skin: Warm and Dry
Psych: Apparent Dementia
--- NOTE | 2025-04-14 11:16 | W.PN.ID1 ---
Date of Service
Date of Service: April 14, 2025
Today's Communication
Continue Zosyn.
Assessment / Plan
Encephalopathy; ongoing - ?TME ?med related (cefepime) ?CVA
Hx VRE / Klebsiella infection
- on dapto / cefepime, from OSH
Unstageable sacral wound
Vascular dementia
P A-fib (on Eliquis)
ESRD�HD (MWF)
DM
PAD
CHF
Anxiety/depression
Recommendations:
01/27/25 Bcx: VRE (sensitive to amp, dapto, linezolid)
Klebsiella aerogenes (Sensitive to: t/sulfa, FQ, tobra, gent, pip/tazo, cefepime (<2), ceftaz (4))
Continue Zosyn 2.25g IV q12 for now, in case cefepime was contributing to encephalopathy.
Will review extensive outside medical records more thoroughly.
Blood cx's neg to date.
Local care to sacral wound.
Monitor white count and temperature curve.
����������������������������������������������������������
Chief Complaint
-: Other (Change in mental status)
Subjective / Review of Systems
Patient seen and examined. Currently on hemodialysis. Decreased responsiveness noted today.
Vital Signs / Physical Exam
Vital Signs
Vital Signs
Temp Pulse Resp BP Pulse Ox
97.9 F 82 16 94/65 99
04/14/25 08:20 04/14/25 11:14 04/14/25 10:45 04/14/25 11:14 04/14/25 10:45
Physical Exam
Constitutional: Chronically Ill
Eyes: No Conjunctival Hemorrhage and Sclera Anicteric
Cardiovascular: Regular Rate and S1/S2
Pulmonary: Clear
Gastrointestinal: Soft, Non Tender, Non Distended and Normal Bowel Sounds
Extremities: Negative Edema
Neurological: Other (Responsive to noxious stimuli)
Lines: HD Cath (no erythema)
Objective Data
Lab Data
Lab Results
04/14/25 05:22
04/14/25 05:22
APTT 138.7 Sec (23.4-35.0) H 04/14/25 05:22
Lactic Acid Cancelled 04/10/25 14:15
Total Bilirubin 1.5 mg/dl (0.2-1.3) H 04/10/25 10:12
AST 29 U/L (17-59) 04/10/25 10:12
ALT 19 U/L (0-50) 04/10/25 10:12
Alkaline Phosphatase 185 U/L (38-126) H 04/10/25 10:12
Most recent labs reviewed.
Micro Results:
04/10/25 10:12 Blood Culture - Preliminary
Blood/Venous No Growth in 4 days- Final report to follow
04/13/25 14:55 C. difficile GDH Antigen & Toxins - Final
Feces/Stool Negative for toxigenic C.difficile
04/10/25 12:30 Blood Culture - Preliminary
Blood/Venous No Growth in 72 hours- Final report to follow
04/11/25 04:12 MRSA Screen - Final
Nose Staph aureus MRSA
Imaging:
04/09/2025 MRI brain without contrast: There are small foci of restricted diffusion involving the bilateral frontoparietal white matter, the left frontal white matter more anteriorly in the right basal ganglia consistent with acute/subacute
infarctions. These may be embolic in nature given the multivessel territory. Mild atrophy with sequelae of moderate chronic small vessel ischemic disease.
Prominent blooming artifact along the left paramedian parietal lobe which is likely sequelae of prior hemorrhage/hematoma.
--- NOTE | 2025-04-14 11:32 | PTCARENOTE ---
Patient lethargic, not following commands, PERRLA@1/sluggish. Currently getting HD. BPs soft, all other VSS. Heparin infusing per protocol. Patient still having diarrhea. On RA, sats 99%. NSR on monitor. Q2T, restraints still needed. Will closely
monitor.
[2025-04-14 12:01] LABS: Glucose - Point of Care 99 mg/dl (70-99)
[2025-04-14] MEDS: D5LR 1000 IV (12:21)
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
[2025-04-14 14:23] LABS: APTT 85.6 Sec (23.4-35.0)
--- NOTE | 2025-04-14 14:50 | WOUNDNOTE ---
PENIS SIDE VIEW
--- NOTE | 2025-04-14 14:55 | WOUNDNOTE ---
WON RN NOTE: Followed up today with assist of nurse Mason who reports new sores on penis. Nurse said a condom catheter was used for a few days to track if any urine output. Nurse reports no swelling of penis and brown/turner eschar localized to top
of penis, not shaft. Suspect since patient is on dialysis this may be signs of Calciphylaxis. Sacral unstageable PI now with ring of dark maroon, developing DTI. Dr. Contreras and resident Dion given an update. Applied Vaseline to eschar on penis.
Patient had large loose BM when assessing patient. Skin care given and barrier cream applied by nurse, recommended internal fecal manufacturing plant manager to nurse if persists. Scrotum with MASD breakdown, barrier cream and fungal powder in use. Heel foams changed,
no change, are intact and pillows in use under calves. Despite preventative measures patient is susceptible to additional PI's due to poor medical condition and poor nutrition. Will update wound care orders and nurse Marlon aware, will follow as
needed.
--- NOTE | 2025-04-14 15:54 | W.PN.UPDATE ---
Addendum entered and electronically signed by Pedro Contreras MD 04/14/25 16:25:
Called [facility] who referred me to Dr. Salvador Estrella.
Got a callback from Dr. Jeannie Wilson who admitted the patient and was covering. She admitted the patient on March 20, states that patient was on antibiotics but did not have a stop date on the antibiotics. (The papers I review from [place]
does not have antibiotic listed)
He was awake alert oriented when he was admitted but in the last few days he became really obtunded and his potassium was dropping. They could not get stat labs and also he had hard time waking up at times and very confused that is why he was sent
over to the hospital.
Original Note:
Update Note
Progress Note Update
Sister called back I had a detailed discussion with the sister regarding patient's strokes, prognosis. She admitted that he has been declining in the past month but he was able to converse with her on the phone on March 23. [facility] While he was at [facility] he was able to talk to her on the phone. I reviewed about current situation and his medical conditions and strokes. Dysphagia discussed. Options of PEG tube versus hospice discussed.
She will have to discuss further with other siblings and get back to us.
Called [facility] to see when AB was started.
I do not see AB on his discharge papers
[2025-04-14 17:58] LABS: Glucose - Point of Care 112 mg/dl (70-99)
[2025-04-14] MEDS: LOPRESSOR 2.5 MG IV (18:20)
[2025-04-14 20:57] LABS: APTT 65.0 Sec (23.4-35.0)
--- NOTE | 2025-04-14 21:34 | CON.NEURO ---
Neuro Assessment/Plan
Assessment
59 year old very ill man with altered mental status, obtunded.
EEG 04/11 generalized slowing
brain MRI showing ~5 small acute/subacute appearing infarcts in the right basal ganglia and bilateral white matter
Also extensive white matter leukoaraiosis and atrophy, much more than would be expected at his age, and I agree that he almost certainly has vascular dementia
unfortunately, he is very high risk of stroke and he should continue Eliquis, as I have no other treatment to offer
I don't believe these infarcts are contributing to his being obtunded x several days
There is no myoclonus as would be seen with beta lactams encephalopathy.
overall neuro prognosis appears poor
Consultation
Order
Date of Consultation: 04/14/25
Requesting Provider: Diane
Reason for Consult: AMS, embolic stroke
Subjective/Objective
Subjective Data
Date of Service: April 14, 2025
from h&p:
59M [facility] resident ESRD MWF pafib Eliquis HTN HLD DM PAD toe amputations CHF Anxiety Depression suspected underlying vascular dementia recent prolonged hospitalization [facility] January 11 to March 17 for intractable back pain catheter
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
arrival with associate severe hypotension systolic 70s. Improved with IVF bolus, patient responding to verbal stimuli but nonverbal. Sometimes responds with nods/shakes head in answer to questions. Stable respiratory status on room air afebrile.
he was admitted 04/10 and initially AMS thought due to polypharmacy vs hyopotension/hypovolemia vs cefepime toxicity. MRI showing mutiple foci of infarct suggestive of embolic stroke.
Objective Data
Vital Signs
Temp Pulse Resp BP Pulse Ox
36.1 C 74 13 123/76 96
04/14/25 19:00 04/14/25 20:00 04/14/25 20:00 04/14/25 20:00 04/14/25 20:18
Lab Results
04/14/25 05:22
04/14/25 05:22
APTT 65.0 Sec (23.4-35.0) H 04/14/25 20:09
Sodium 144 mmol/L (135-145) 04/14/25 05:22
Potassium 3.5 mmol/L (3.5-5.1) 04/14/25 05:22
BUN 33 mg/dl (9-20) H 04/14/25 05:22
Glucose 151 mg/dl (70-99) H 04/14/25 05:22
Calcium 8.9 mg/dl (8.4-10.2) 04/14/25 05:22
Phosphorus 5.5 mg/dl (2.5-4.5) H 04/10/25 10:12
Patient Allergies
losartan Allergy (Verified 04/10/25 22:15)
Unknown
oxycodone Allergy (Verified 04/10/25 22:15)
Unknown
Physical Exam
-
Obtunded
localized and withdraws
no myoclonus witnessed
Medications
-
Active Medications
Generic Name Dose Route Start Last Admin
Trade Name Freq PRN Reason Stop Dose Admin
Acetaminophen 650 mg 04/10/25 20:51
Acetaminophen 325 Mg Tablet PO 05/08/25 20:50
Q6HPRN PRN
mild pain
Albumin Human 12.5 grams 04/14/25 08:00
Albumin 12.5 Grams/50 Ml Bag *For Hemodialysis* IV 04/14/25 23:59
HD-Q1HPRN PRN
SBP < 90 mmHg
Bisacodyl 10 mg 04/10/25 20:51
Bisacodyl 10 Mg Rectal Suppository RECTAL 05/08/25 20:50
[id number] PRN
constipation
Buspirone HCl 10 mg 04/10/25 22:00 04/14/25 20:11
Buspirone 10 Mg Tablet PO 05/08/25 21:59 Not Given
TID LAUREN
Collagenase 0 applic 04/12/25 08:00 04/14/25 08:03
Collagenase Ointment 2.5 Gram Jar TOPICAL 05/10/25 07:59 1 applic
DAILY LAUREN Administration
Dextrose 12.5 grams 04/10/25 20:51
Dextrose 50% (0.5 Grams/Ml) 50 Ml Syringe IV 05/08/25 20:50
[id number] PRN
hypoglycemia
Protocol
Docusate Sodium 100 mg 04/11/25 08:00 04/14/25 07:34
Docusate Sodium 100 Mg Capsule PO 05/09/25 07:59 Not Given
DAILY LAUREN
Glucagon 1 mg 04/10/25 20:51
Glucagon 1 Mg Vial IM 05/08/25 20:50
PRN PRN
hypoglycemia
Protocol
Heparin Sodium 25,000 units in 250 mls @ 0 mls/hr 04/11/25 16:15 04/14/25 03:40
Heparin 29096 Units/250 Ml IV 250 mls
PER PROTOCOL LAUREN Administration
Protocol
Per Protocol
Piperacillin Sod/Tazobactam Sod 2.25 grams in 50 mls @ 100 mls/hr 04/12/25 14:00 04/14/25 13:52
Zosyn IV 50 mls
Q8H LAUREN Administration
Dextrose/Lactated Ringer's 1,000 mls @ 40 mls/hr 04/13/25 09:00 04/14/25 12:21
D5lr IV 1,000 mls
.Q24H LAUREN Administration
Insulin Aspart 0 units 04/11/25 00:00 04/14/25 17:49
Insulin Aspart Moderate Resistance 300 Units/3 Ml Pen.Injctr SC 05/09/25 00:00 Not Given
Q6 LAUREN
Protocol
Mannitol 12.5 grams 04/14/25 08:00
Mannitol 25% (12.5 Grams/50 Ml) Vial IV 04/14/25 23:59
HD-Q1HPRN PRN
SBP < 90 mmHg
Metoprolol Tartrate 50 mg 04/10/25 20:51 04/12/25 07:21
Metoprolol 50 Mg Regular Release Tablet PO 05/08/25 20:50 Not Given
On Hold: 04/12/25 10:51 BID LAUREN
Metoprolol Tartrate 2.5 mg 04/13/25 08:59 04/14/25 18:20
Metoprolol 5 Mg/5 Ml Vial IV 05/10/25 11:59 2.5 mg
Q6 LAUREN Administration
Miconazole Nitrate 0 applic 04/11/25 08:00 04/14/25 20:10
Miconazole Powder Bottle TOPICAL 05/09/25 07:59 1 applic
BID LAUREN Administration
Multivitamins Therapeutic 1 tablet 04/11/25 08:00 04/14/25 07:35
Multivitamin Tablet PO 05/09/25 07:59 Not Given
DAILY LAUREN
Pantoprazole Sodium 40 mg 04/10/25 20:51 04/14/25 08:03
Pantoprazole Sodium 40 Mg/10 Ml Vial IV 05/08/25 20:50 40 mg
DAILY LAUREN Administration
Polyethylene Glycol 17 grams 04/10/25 20:51
Polyethylene Glycol Powder 17 Grams Packet PO 05/08/25 20:50
DAILYPRN PRN
constipation
Potassium Chloride 40 meq 04/10/25 20:51 04/13/25 08:25
Potassium Chloride 20 Meq Extended Release Tablet PO 05/08/25 20:50 Not Given
On Hold: 04/13/25 08:59 BID LAUREN
Sennosides 8.6 mg 04/10/25 20:51
Sennosides (Senokot) 8.6 Mg Tablet PO 05/08/25 20:50
BIDPRN PRN
constipation
Sodium Chloride 0 flush 04/10/25 22:00
Sodium Chloride 0.9% (Flush) Syringe IV 05/08/25 21:59
PER PROTOCOL LAUREN
Sodium Chloride 10 ml 04/10/25 20:51 04/14/25 08:02
Sodium Chloride 0.9% (Preservative Free) 10 Ml Vial IV 05/08/25 20:50 10 ml
DAILY LAUREN Administration
Sodium Hypochlorite 0 ml 04/12/25 08:00 04/14/25 08:03
Dakin's Solution 0.125% (1/4 Strength) 473 Ml Bottle TOPICAL 05/10/25 07:59 473 ml
DAILY LAUREN Administration
Thiamine HCl 100 mg 04/13/25 09:00 04/14/25 08:03
Thiamine (100 Mg/Ml) 2 Ml Vial IV 05/11/25 08:59 100 mg
DAILY LAUREN Administration
Home Medications
�Medication �Instructions �Recorded
acetaminophen 325 mg tablet 650 mg PO Q6HPRN PRN mild pain 04/10/25
(Tylenol)
apixaban 2.5 mg tablet (Eliquis) 2.5 mg PO BID Blood Clot 04/10/25
Prevention/Tx
bisacodyl 10 mg rectal suppository 10 mg [place] DAILYPRN PRN if no bm 04/10/25
(Dulcolax (bisacodyl)) aftr mom
buspirone 10 mg tablet 10 mg PO TID Mental Health/Anxiety 04/10/25
cefepime 2 gram solution for 2 g IV MOWEFR Infection 04/10/25
injection
daptomycin 500 mg intravenous 470 mg IV MOWEFR Infection 04/10/25
solution
docusate sodium 100 mg capsule 100 mg PO DAILY Constipation 04/10/25
(Colace)
escitalopram oxalate 20 mg tablet 20 mg PO DAILY Mental 04/10/25
(Lexapro) Health/Anxiety
gabapentin 100 mg capsule 100 mg PO TID Pain 04/10/25
haloperidol 10 mg tablet 10 mg PO [id number] PRN before 04/10/25
dialysis/AGITATION/ANXIETY
insulin lispro 100 unit/mL 1 sliding scale dose SC AC Diabetes 04/10/25
subcutaneous pen
magnesium oxide 168 mg PO DAILY Electrolyte 04/10/25
Repletion
melatonin 3 mg tablet 6 mg PO HS Sleep 04/10/25
metoprolol tartrate 50 mg tablet 50 mg PO BID Heart 04/10/25
Disease/Condition
ondansetron HCl 4 mg tablet 4 mg PO Q8HPRN PRN nausea 04/10/25
pantoprazole 40 mg tablet,delayed 40 mg PO DAILY Gastrointestinal 04/10/25
release (Protonix) Issue
potassium chloride 20 mEq 40 meq PO BID Electrolyte Repletion 04/10/25
tablet,extended release
rosuvastatin 10 mg tablet (Crestor) 10 mg PO DAILY High Cholesterol 04/10/25
sorbitol 70 % solution 30 ml PO DAILYPRN PRN constipation 04/10/25
therapeutic multivitamin 1 tab PO DAILY Supplement 04/10/25
thiamine HCl (vitamin B1) 100 mg 100 mg PO DAILY Supplement 04/10/25
tablet
[2025-04-15] VITALS (14 sets, daily range): BP systolic 93–134; BP diastolic 20–88
[2025-04-15 00:02] LABS: Glucose - Point of Care 130 mg/dl (70-99)
[2025-04-15] MEDS: LOPRESSOR 2.5 MG IV ×4 (00:54→18:33)
[2025-04-15] MEDS: NOVOLOG FLEXPEN-MODERATE RESISTANCE SC ×3 (00:55→12:12)
--- NOTE | 2025-04-15 01:20 | PTCARENOTE ---
Caring for pt overnight. Pt obtunded, at 1999 pt was not opening eyes to verbal or following any commands. Now at 0000 pt opening eyes to voice and able to weakly grasp both hands. [place] pt say yes. Opens eyes but is not tracking. Pupils 1 sluggish.
In beginning of shift corneal reflex was not present & it is now at 0000. Will move his upper extremities but weak. Q2T. IVF running. Heparin gtt running. ivabx. NPO, unable to take meds. NSR on monitor. Remained RA until around 2300, pt started to
desat, lowest to 56%, very frequently, apneic. Pt was placed on 2LNC & problem resloved, but pt remains tachypneic at times. Sister called wanted an update, updated her on nursing stand point, told her we would have the doctors call tomorrow. NO
other issues at this time, will monitor progress.
[2025-04-15 04:17] LABS: Hematocrit 27.0 % (39.0-52.0); Hemoglobin 8.5 g/dL (13.0-18.0); Mean Corp Hgb Conc. 31.5 g/dL (33.0-37.0); Mean Corpuscular Volume 91.8 fL (80.0-94.0); Nucleated Red Blood Cells % 0 % (-); Platelet Count 45 10^3/uL (130-400); Red Cell Dist. Width 18.6 % (11.5-14.5)
[2025-04-15 04:24] LABS: APTT 66.4 Sec (23.4-35.0)
[2025-04-15 04:45] LABS: Blood Urea Nitrogen 17 mg/dl (9-20); Calcium 9.2 mg/dl (8.4-10.2); Carbon Dioxide 29 mmol/L (22-30); Chloride 104 mmol/L (98-107); Glucose 112 mg/dl (70-99); Magnesium 1.7 mg/dl (1.6-2.3); Potassium 3.2 mmol/L (3.5-5.1); Sodium 139 mmol/L (135-145); eGFR 33.87
[2025-04-15] MEDS: ZOSYN 50 IV ×3 (05:28→20:49)
[2025-04-15 06:12] LABS: Glucose - Point of Care 122 mg/dl (70-99)
[2025-04-15] MEDS: DAKIN'S SOLUTION 0.125% 1/4 STRENGTH 1 ML TOPICAL (07:55)
[2025-04-15] MEDS: SANTYL OINTMENT 1 APPLIC TOPICAL (07:56)
[2025-04-15] MEDS: THIAMINE INJECTION 100 MG IV (07:56)
[2025-04-15] MEDS: PROTONIX IV 40 MG IV (07:57)
[2025-04-15] MEDS: NSS (PRESERVATIVE FREE) 10 ML IV (07:57)
[2025-04-15] MEDS: DESENEX/MITRAZOL/ZEASORB 1 APPLIC TOPICAL ×2 (07:58→20:49)
--- NOTE | 2025-04-15 08:32 | W.PN.HOSP.TC ---
Addendum entered and electronically signed by Pedro Contreras MD 04/15/25 16:37:
Seen and examined the patient with resident. Agree with assessment plan.
Patient slightly more awake but not interactive .
Cardiovascular system S1-S2 appreciated
Chest clear to auscultation
Abdomen soft and nontender
CT of the abdomen and pelvis reviewed no changes indicating malignancy, proctitis, atrophic changes of the kidneys, splenomegaly, anasarca, recent fracture of great trochanter. Osseous destructive process 8 T8-T9 incompletely imaged
Sister to get back to us regarding Dobbhoff tube given slightly increased risk with low platelets
Discussed with infectious disease regarding probably stopping antibiotics as there is no clear reason for it at this point
Poor prognosis
Once Dobbhoff tube is placed we will start medicine/nutrition until family decides on goals of care
Original Note:
Today's Communication/Plan
-
CT ab/pelvis
Cont antibiotics
Further chart review for bone marrow biopsy records and [facility] records
Assessment / Plan
Assessment / Plan
59 y/o patient had a prolonged hospitalization at [facility] January 11, 2025 to March 17, 2025 for intractable back pain, catheter associated infection, Klebsiella bacteremia. On long-term IV antibiotics cefepime and daptomycin with HD here
for acute change in mental status. Patient was obtunded on arrival and hypotensive. Baseline intermittently confused and bedbound since November per POA. Able to talk to sister on the phone at baseline
CT Head- No acute intracranial abnormality noted.There are mild/moderate periventricular and subcortical white matter hypodensities which are nonspecific, however likely sequelae of chronic small vessel ischemic disease.
EEG 04/11/2025--diffuse cortical dysfunction without focal abnormality. No seizures
Echo 04/11/2025--technically difficult study. Normal biventricular size and function without regional WMA. EF 60 to 65%. Aortic sclerosis
Brain MRI 04/13/25-- There are small foci of restricted diffusion involving the bilateral frontoparietal white matter, the left frontal white matter more anteriorly in the right basal ganglia consistent with acute/subacute infarctions. These may be
embolic in nature given the multivessel territory.
Mild atrophy with sequelae of moderate chronic small vessel ischemic disease.
Prominent blooming artifact along the left paramedian parietal lobe which is likely sequelae of prior hemorrhage/hematoma.
# CVA
--MRI of the brain revealed multiple small foci in bilateral frontotemporal parietal white matter and left frontal white matter anteriorly in the right basal ganglia consistent with acute/subacute infarcts
--Neurology does not believe it is contributing to AMS and there are no treatment options at this point as already on anticoagualtion
--Appears to be embolic in nature
--Appreciate cardiology for ALENA to eval for endocarditis - cardiology will do ALENA once AAO. High risk of aspiration due to obtunded state.
# Acute metabolic encephalopathy
--Hypotension/polypharmacy/hypovolemia
--EEG without seizures or status
--Advance diet as tolerated per speech evaluation and recommendations
--Hold melatonin, Haldol, gabapentin, Lexapro
--Cefepime was discontinued and changed to Zosyn 04/12/2025
--Patient is still not able to follow directions or answer questions
#Metastatic disease?
#Pancytopenia
--Hospital records from [place] revealed concerns for metastatic disease after MRI of spine done. Some proctocolitis of bowels noted on imaging as well.
--CT ab/pelvis to eval for malignant etiology
# Pancytopenia
--Anemia likely secondary to chronic kidney disease
--Needs outpatient follow-up with hematology
--BM biopsy and MM work up was done there - stated to be negative by hospitalist working there - requesting formal records
# Diarrhea
--c. diff (-)
# Elevated troponin
--Possible ST depressions on EKG
--Possible nonischemic myocardial injury
--ECHO as above
--No further recommendations from cardiology - likely baseline trop in setting of ESRD
# Chronic CHF-NOS-on dialysis now
# History of VRE and Klebsiella bacteremia
--on IV Zosyn with HD
--Infectious disease appreciated
# ESRD on HD Monday
--Left anterior chest wall HD catheter
--Nephrology appreciated
# Paroxysmal atrial fibrillation
--metoprolol to be switched to IV. Patient is n.p.o. therefore Eliquis was switched to heparin drip
# Hypertension-metoprolol IV
# Hyperlipidemia-Hold statin while on daptomycin
# Hypokalemia-replete
# Bedbound since November 2024 with intermittent confusion at baseline
# Anxiety and depression
--on buspirone 10 mg 3 times daily, Lexapro 10 mg, Haldol 10 mg every 48 hours as needed for agitation as outpatient.
--Currently p.o. medicines are on hold as patient is n.p.o.
# DM- SSI only with accu checks
# Concern for vascular dementia
# Unstageable sacral pressure injury, stage I B/L heel pressure injury-turn patient every 2 hours and also continue with wound care
# Amputation of the left toes 1-3
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
DVT prophylaxis-Heparin gtt
Full code
LEA's sister Geovanni
Anticipated Discharge: > 48 hours
Subjective/Interval History
-
Date of Service: April 15, 2025
Responding to verbal stimuli today. Opening eyes. Not following commands, but improved from yesterday.
Objective Data
-
Labs:
Laboratory Results
04/14/25 04/15/25 04/15/25
20:09 03:48 11:00
WBC 4.6 L
Hgb 8.5 L
Hct 27.0 L
Plt Count 45 L
APTT 65.0 H 66.4 H Pending
Sodium 139
Potassium 3.2 L
Chloride 104
Carbon Dioxide 29
BUN 17
Creatinine 2.2 H
Glucose 112 H
Calcium 9.2
Vital Signs:
Vital Signs
Temp Pulse Resp BP Pulse Ox
97.8 F 91 30 106/20 100
04/15/25 04:45 04/15/25 06:00 04/15/25 06:00 04/15/25 06:00 04/15/25 05:27
I&O
04/14/25 04/15/25 04/16/25
06:59 06:59 06:59
Intake Total 580 / 580
Output Total 200 / 200
Balance 380 / 380
Review of Systems
-
Unable to obtain full review of systems at this time due to: Dementia
Physical Exam
-
General: Appears Chronically Ill
HEENT: Normocephalic
Respiratory: Clear to Auscultation
Cardiac: Regular Rhythm and S1/S2
GI: Soft, Nontender, Nondistended and Normal Bowel Sounds
Musculoskeletal: No Cyanosis, No Edema and Other (missing toes)
Psych: Calm
[2025-04-15] MEDS: KCL 270 MEQ IV (08:46)
--- NOTE | 2025-04-15 08:46 | W.PN.ID1 ---
Date of Service
Date of Service: April 15, 2025
Today's Communication
Continue antibiotics for today.
Assessment / Plan
Encephalopathy; ongoing
- ?TME ?med related (cefepime) ?CVA
Hx VRE / Klebsiella infection
- on dapto / cefepime, from nursing facility.
Unstageable sacral wound
Vascular dementia
P A-fib (on Eliquis)
ESRD�HD (MWF)
DM
PAD
CHF
Anxiety/depression
Recommendations:
01/27/25 Bcx: VRE (sensitive to amp, dapto, linezolid)
Klebsiella aerogenes (Sensitive to: t/sulfa, FQ, tobra, gent, pip/tazo, cefepime (<2), ceftaz (4))
Continue Zosyn 2.25g IV q12 for now, in case cefepime was contributing to encephalopathy.
Reviewed extensive records from [facility]. According to those records, the patient had VRE and Klebsiella bacteremia attributed to his dialysis cath which was changed in mid January. Per his discharge summary, he completed a course of
antibiotics prior to being discharged. He arrived here to [facility] from [facility] on antibiotics, but for unclear reasons. I have asked for records from [facility], including admission H&P, any progress notes and medication
reconciliation form to further delineate why he was placed back on antibiotics.
Blood cx's neg to date.
Local care to sacral wound.
Monitor white count and temperature curve.
����������������������������������������������������������
Chief Complaint
-: Other (Change in mental status)
Subjective / Review of Systems
Patient seen and examined. Extremely lethargic, but arousable to noxious stimuli. Reports pain in legs, but no other pain.
Vital Signs / Physical Exam
Vital Signs
Vital Signs
Temp Pulse Resp BP Pulse Ox
97.8 F 91 30 106/20 100
04/15/25 04:45 04/15/25 06:00 04/15/25 06:00 04/15/25 06:00 04/15/25 05:27
Physical Exam
Constitutional: Chronically Ill
Eyes: No Conjunctival Hemorrhage and Sclera Anicteric
Cardiovascular: Regular Rate and S1/S2
Pulmonary: Clear
Gastrointestinal: Soft, Non Tender, Non Distended and Normal Bowel Sounds
Extremities: Negative Edema
Wound: Other (Unstageable sacral wound dressed.)
Neurological: Other (Responsive to noxious stimuli)
Lines: HD Cath (no erythema)
Objective Data
Lab Data
Lab Results
04/15/25 03:48
04/15/25 03:48
APTT 66.4 Sec (23.4-35.0) H 04/15/25 03:48
Lactic Acid Cancelled 04/10/25 14:15
Total Bilirubin 1.5 mg/dl (0.2-1.3) H 04/10/25 10:12
AST 29 U/L (17-59) 04/10/25 10:12
ALT 19 U/L (0-50) 04/10/25 10:12
Alkaline Phosphatase 185 U/L (38-126) H 04/10/25 10:12
Most recent labs reviewed.
Micro Results:
04/10/25 12:30 Blood Culture - Preliminary
Blood/Venous No Growth in 4 days- Final report to follow
04/10/25 10:12 Blood Culture - Preliminary
Blood/Venous No Growth in 4 days- Final report to follow
04/13/25 14:55 C. difficile GDH Antigen & Toxins - Final
Feces/Stool Negative for toxigenic C.difficile
04/11/25 04:12 MRSA Screen - Final
Nose Staph aureus MRSA
Imaging:
04/09/2025 MRI brain without contrast: There are small foci of restricted diffusion involving the bilateral frontoparietal white matter, the left frontal white matter more anteriorly in the right basal ganglia consistent with acute/subacute
infarctions. These may be embolic in nature given the multivessel territory. Mild atrophy with sequelae of moderate chronic small vessel ischemic disease.
Prominent blooming artifact along the left paramedian parietal lobe which is likely sequelae of prior hemorrhage/hematoma.
Care Review
Plan reviewed with: Physician (Resident)
--- NOTE | 2025-04-15 09:53 | CM ---
Patient seen at bedside in IMU. Patient plan is for return to [facility] when patient medically appropriate. CM will attempt to call family to confirm plan. CM continue to follow for discharge planning needs.
Plan; return to SNF; confirm with family when medically appropriate.
--- NOTE | 2025-04-15 10:05 | PTOTSP ---
Speech Language Pathology
Pt seen for cognitive-linguistic evaluation given acute/subacute CVAs noted on MRI. Given significant deficits, administered K Coma Recovery Scale (CRS-R), which will be administered approximately 1x/week while at PM to assess progress. Pt
with an overall score of 8/23. Pt blinked to threat consistently on L, but did not blink to threat on any attempts on R. No visual fixation or tracking noted. No auditory startle noted. Withdrawal noted to noxious stimulation in nailbeds on
RUE/RLE, but no response noted on LUE/LLE. Pt verbalized 'yes' when asked if his name was Marcelino and when asked if he was at home. He also verbalized 'no' when asked if he could see TELEPHONE STATION REPAIRER. No other verbalizations noted during duration of
evaluation. No response to majority of yes/no questions.
Pt also seen for dysphagia tx. Provided 2ccs via pipetted straw. Manually closed jaw and verbally cued pt to swallow. Pt was able to initiate swallow with 3 consecutive swallows followed by weak cough response. Attempted 1/2 tsp of puree, which
pt actively accepted. However, no bolus manipulation noted with subsequent open mouth posture and need for oral suctioning of entire bolus.
Pt does not currently possess prefeeding skills or cognitive status to consider P.O. diet. Prognosis for initiation of diet in short-term OR long-term is poor.
Recommend:
(1) Strict NPO
(2) Oral care 4x/day with suctioning as needed
(3) Not appropriate for Aspiration Risk Hydration Protocol (ARHP) at this time given cognitive status
(4) Non-oral meds
(5) TELEPHONE STATION REPAIRER to continue to follow for dysphagia and cognitive-linguistic tx
--- NOTE | 2025-04-15 10:52 | W.PN.NEPH.PH ---
Today's Communication / Plan
-
HD tomorrow
Assessment/Plan
-
59M [facility] resident ESRD MWF roxanne Eliquis HTN HLD DM PAD toe amputations CHF Anxiety Depression suspected underlying vascular dementia recent prolonged hospitalization [facility] January 11 to March 17 for intractable back pain catheter
associated infection VR and Klebsiella bacteremia (following which he was discharged to [facility] with snf IV abx Cefipime and Daptomycin to be given with HD- sent by SNF for evaluation AMS, normally AOx3 at baseline, essentially obtunded on
arrival with associate severe hypotension systolic 70s. Improved with IVF bolus,
Impression
ESRD MWF [facility]
Sepsis
A-fib
Dementia/AMS
Plan.
Dialysis tomorrow
Replace potassium today
Continue IV fluids as he has no oral intake at this time
There was no ultrafiltration yesterday
Antibiotics continue with Zosyn
-
-
Date of Service: April 15, 2025
CC / HPI / ROS
-
Chief Complaint:
AMS
History of Present Illness:
ESRD presents with altered mental status
Tolerated dialysis yesterday
BP low but stable
Remains pancytopenic
K low today
Review of Systems:
Patient answers questions and follows basic commands
No complaints of chest pain or shortness of breath
Labs
-
Labs:
WBC 4.6 10^3/uL (4.8-10.8) L 04/15/25 03:48
RBC 2.94 10^6/uL (4.70-6.10) L 04/15/25 03:48
Hgb 8.5 g/dL (13.0-18.0) L 04/15/25 03:48
Hct 27.0 % (39.0-52.0) L 04/15/25 03:48
Plt Count 45 10^3/uL (130-400) L 04/15/25 03:48
Sodium 139 mmol/L (135-145) 04/15/25 03:48
Potassium 3.2 mmol/L (3.5-5.1) L 04/15/25 03:48
Chloride 104 mmol/L (98-107) 04/15/25 03:48
Carbon Dioxide 29 mmol/L (22-30) 04/15/25 03:48
BUN 17 mg/dl (9-20) 04/15/25 03:48
Creatinine 2.2 mg/dL (0.7-1.3) H 04/15/25 03:48
eGFR 33.87 04/15/25 03:48
Glucose 112 mg/dl (70-99) H 04/15/25 03:48
Calcium 9.2 mg/dl (8.4-10.2) 04/15/25 03:48
Phosphorus 5.5 mg/dl (2.5-4.5) H 04/10/25 10:12
Albumin 3.2 g/dl (3.5-5.0) L 04/10/25 10:12
Physical Exam
-
Vital Signs:
Vital Signs
Temp Pulse Resp BP Pulse Ox
97.8 F 85 23 122/77 100
04/15/25 04:45 04/15/25 10:00 04/15/25 10:00 04/15/25 10:00 04/15/25 10:00
Cardiovascular:: Regular rate and rhythm
Respiratory:: Bilateral: Coarse
Lung Excursion:: Normal
Abdomen:: Nontender and Soft
Bowel Sounds:: Normal
Extremity Edema:: None: Bilateral:
[2025-04-15 11:41] LABS: Glucose - Point of Care 117 mg/dl (70-99)
[2025-04-15 12:07] LABS: APTT 61.5 Sec (23.4-35.0)
[2025-04-15] MEDS: D5LR 1000 IV (14:31)
[2025-04-15] MEDS: HEPARIN 25000 UNITS/250 ML IV (14:40)
[2025-04-15 17:54] LABS: Glucose - Point of Care 165 mg/dl (70-99)
[2025-04-15] MEDS: NOVOLOG FLEXPEN-MODERATE RESISTANCE 1 UNITS SC (18:33)
[2025-04-15 21:15] LABS: APTT 80.3 Sec (23.4-35.0)
[2025-04-15 23:23] LABS: Glucose - Point of Care 151 mg/dl (70-99)
[2025-04-16] VITALS (32 sets, daily range): BP systolic 75–159; BP diastolic 56–97
[2025-04-16] MEDS: LOPRESSOR 2.5 MG IV ×3 (00:34→17:44)
[2025-04-16] MEDS: NOVOLOG FLEXPEN-MODERATE RESISTANCE 1 UNITS SC (00:35)
[2025-04-16 04:34] LABS: Hematocrit 27.2 % (39.0-52.0); Hemoglobin 9.1 g/dL (13.0-18.0); Mean Corp Hgb Conc. 33.5 g/dL (33.0-37.0); Mean Corpuscular Volume 87.5 fL (80.0-94.0); Platelet Count 53 10^3/uL (130-400); Red Cell Dist. Width 18.1 % (11.5-14.5)
[2025-04-16 04:40] LABS: APTT 103.2 Sec (23.4-35.0)
[2025-04-16 05:23] LABS: Blood Urea Nitrogen 21 mg/dl (9-20); Calcium 9.4 mg/dl (8.4-10.2); Carbon Dioxide 20 mmol/L (22-30); Chloride 109 mmol/L (98-107); Glucose 140 mg/dl (70-99); Magnesium 1.7 mg/dl (1.6-2.3); Potassium 3.6 mmol/L (3.5-5.1); Sodium 140 mmol/L (135-145); eGFR 23.34
[2025-04-16] MEDS: NOVOLOG FLEXPEN-MODERATE RESISTANCE SC ×3 (06:19→17:43)
[2025-04-16] MEDS: ZOSYN 50 IV (06:19)
[2025-04-16] MEDS: LOPRESSOR IV (06:20)
[2025-04-16 06:27] LABS: Glucose - Point of Care 141 mg/dl (70-99)
[2025-04-16 07:54] LABS: ALT (SGPT) 13 U/L (0-50); AST (SGOT) 16 U/L (17-59); Albumin 2.9 g/dl (3.5-5.0); Alkaline Phosphatase 168 U/L (38-126); Total Protein 5.6 g/dl (6.3-8.2)
--- NOTE | 2025-04-16 08:21 | W.PN.HOSP.TC ---
Addendum entered and electronically signed by Pedro Contreras MD 04/16/25 15:23:
I saw and evaluated the patient. I reviewed the resident�s note and agree with findings and plan as documented in the resident�s note.
Seen earlier today. Late documentation. Patient was getting dialysis
He was making noises and also had Silas-Frost respirations
Does not follow commands patient was awake and eyes open. Constantly moving and had tardive dyskinesia type movements
No pedal edema
Cardiovascular system soonest appreciated
Chest clear to auscultation
Blood counts have improved
Patient's sister who is bowel power of workers compensation defense attorney does not want Dobbhoff to be placed until after tomorrow
AB stopped
Resident discussed with sister today
Poor prognosis
Original Note:
Today's Communication/Plan
-
Stop zosyn per ID
HD
Possible dobhoff tube placement pending contact with sister for nutrition
Assessment / Plan
Assessment / Plan
59 y/o patient had a prolonged hospitalization at [facility] January 11, 2025 to March 17, 2025 for intractable back pain, catheter associated infection, Klebsiella bacteremia. On long-term IV antibiotics cefepime and daptomycin with HD here
for acute change in mental status. Patient was obtunded on arrival and hypotensive. Baseline intermittently confused and bedbound since November per POA. Able to talk to sister on the phone at baseline
CT Head- No acute intracranial abnormality noted.There are mild/moderate periventricular and subcortical white matter hypodensities which are nonspecific, however likely sequelae of chronic small vessel ischemic disease.
EEG 04/11/2025--diffuse cortical dysfunction without focal abnormality. No seizures
Echo 04/11/2025--technically difficult study. Normal biventricular size and function without regional WMA. EF 60 to 65%. Aortic sclerosis
Brain MRI 04/13/25-- There are small foci of restricted diffusion involving the bilateral frontoparietal white matter, the left frontal white matter more anteriorly in the right basal ganglia consistent with acute/subacute infarctions. These may be
embolic in nature given the multivessel territory.
Mild atrophy with sequelae of moderate chronic small vessel ischemic disease.
Prominent blooming artifact along the left paramedian parietal lobe which is likely sequelae of prior hemorrhage/hematoma.
CT ab/pelvis with IV contrast 04/15/25 impression:
IMPRESSION:
1. Examination significantly limited as above.
2. Anasarca.
3. Splenomegaly.
4. Atrophic changes bilateral kidneys with extensive cystic change as above.
5. Proctitis, indeterminate etiology.
6. Diffuse wall thickening of the urinary bladder, question outlet obstruction or neurogenic bladder. Small focus of gas within the bladder which could be related to recent catheterization or infection.
7. Recent fracture greater trochanter right femur.
8. Osseous destructive process at the T8-T9 level which is incompletely imaged on this examination.
9. Abnormal lucent and sclerotic appearance of the bones which could be related to renal osteodystrophy.
# CVA
--MRI of the brain revealed multiple small foci in bilateral frontotemporal parietal white matter and left frontal white matter anteriorly in the right basal ganglia consistent with acute/subacute infarcts
--Neurology does not believe it is contributing to AMS and there are no treatment options at this point as already on anticoagualtion
--Appears to be embolic in nature
--Appreciate cardiology for ALENA to eval for endocarditis - cardiology will do ALENA once AAO. High risk of aspiration due to obtunded state.
# Acute metabolic encephalopathy
--Hypotension/polypharmacy/hypovolemia
--EEG without seizures or status
--Advance diet as tolerated per speech evaluation and recommendations
--Hold melatonin, Haldol, gabapentin, Lexapro
--Cefepime was discontinued and changed to Zosyn 04/12/2025
--Patient is still not able to follow directions or answer questions
# History of VRE and Klebsiella bacteremia
--on IV Zosyn with HD -> Discussed with ID will likely d/c as records indicate completion of antibiotics at [facility] and unclear as to why they were started at [facility]. Cultures have been negative and afebrile.
--Infectious disease appreciated
#Metastatic disease?
--Hospital records from [place] revealed concerns for metastatic disease after MRI of spine done. Some proctocolitis of bowels noted on imaging as well.
--CT ab/pelvis revelaed no obvious metastatic disease
# Pancytopenia
--Anemia likely secondary to chronic kidney disease
--Needs outpatient follow-up with hematology
--BM biopsy and MM work up was done there - stated to be negative by hospitalist working there - requesting formal records
# Diarrhea
--c. diff (-)
# Elevated troponin
--Possible ST depressions on EKG
--Possible nonischemic myocardial injury
--ECHO as above
--No further recommendations from cardiology - likely baseline trop in setting of ESRD
# Chronic CHF-NOS-on dialysis now
# ESRD on HD Monday
--Left anterior chest wall HD catheter
--Nephrology appreciated
# Paroxysmal atrial fibrillation
--metoprolol to be switched to IV. Patient is n.p.o. therefore Eliquis was switched to heparin drip
# Hypertension-metoprolol IV
# Hyperlipidemia-Hold statin while on daptomycin
# Hypokalemia-replete
# Bedbound since November 2024 with intermittent confusion at baseline
# Anxiety and depression
--on buspirone 10 mg 3 times daily, Lexapro 10 mg, Haldol 10 mg every 48 hours as needed for agitation as outpatient.
--Currently p.o. medicines are on hold as patient is n.p.o.
# DM- SSI only with accu checks
# Concern for vascular dementia
# Unstageable sacral pressure injury, stage I B/L heel pressure injury-turn patient every 2 hours and also continue with wound care
# Amputation of the left toes 1-3
# Osseous destruction of T8-T9
#Recent R sided fracture greater trochanter
#Splenomegaly
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
DVT prophylaxis-Heparin gtt
Full code
LEA's sister Geovanni
Anticipated Discharge: > 48 hours
Subjective/Interval History
-
Date of Service: April 16, 2025
Opening eyes, but not following commands. Still obtunded. Set up for HD today. 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 Will try again later.
Objective Data
-
Labs:
Laboratory Results
04/15/25 04/16/25
20:57 04:16
WBC 3.9 L
Hgb 9.1 L
Hct 27.2 L
Plt Count 53 L
APTT 80.3 H 103.2 H
Sodium 140
Potassium 3.6
Chloride 109 H
Carbon Dioxide 20 L
BUN 21 H
Creatinine 3.0 H
Glucose 140 H
Calcium 9.4
Total Bilirubin 1.4 H
AST 16 L
ALT 13
Alkaline Phosphatase 168 H
Vital Signs:
Vital Signs
Temp Pulse Resp BP Pulse Ox
97.8 F 84 25 99/70 100
04/16/25 07:15 04/16/25 04:00 04/16/25 04:00 04/16/25 04:00 04/16/25 04:00
Review of Systems
-
Unable to obtain full review of systems at this time due to: Dementia and Acuity
Physical Exam
-
General: Appears in Distress and Appears Chronically Ill
Respiratory: Clear to Auscultation
Cardiac: Regular Rhythm and S1/S2
GI: Soft, Nontender, Nondistended and Normal Bowel Sounds
Genito-urinary: Other (on HD)
Musculoskeletal: No Cyanosis, No Edema and Other (Missing toes )
[2025-04-16] MEDS: MANNITOL 25% 12.5 GRAMS IV ×2 (08:35→10:37)
[2025-04-16] MEDS: FLEXBUMIN 25% FOR HEMODIALYSIS 12.5 GRAMS IV ×2 (08:39→10:37)
[2025-04-16] MEDS: RETACRIT 10000 UNITS IV (08:39)
--- NOTE | 2025-04-16 08:39 | W.PN.ID1 ---
Date of Service
Date of Service: April 16, 2025
Today's Communication
Discontinue antibiotics and observe
Assessment / Plan
Encephalopathy; ongoing
- ?TME ?med related (cefepime) ?CVA
Hx VRE / Klebsiella infection
- on dapto / cefepime, from nursing facility.
Unstageable sacral wound
Vascular dementia
P A-fib (on Eliquis)
ESRD�HD (MWF)
DM
PAD
CHF
Anxiety/depression
Recommendations:
01/27/25 Bcx: VRE (sensitive to amp, dapto, linezolid)
Klebsiella aerogenes (Sensitive to: t/sulfa, FQ, tobra, gent, pip/tazo, cefepime (<2), ceftaz (4))
Reviewed extensive records from [facility]. According to those records, the patient had VRE and Klebsiella bacteremia attributed to his dialysis cath which was changed in mid January. Per his discharge summary, he completed a course of
antibiotics prior to being discharged. He arrived here to [facility] from [facility] on antibiotics (daptomycin / cefepime). Patient appears to have been restarted on antibiotics upon admission to [facility], but for unclear reasons.
Discharge med list from [facility] do not show that any antibiotics were to be continued.
Blood here cx's neg to date.
Moving forward, will discontinue antibiotics with close observation.
Local care to sacral wound.
Monitor white count and temperature curve.
����������������������������������������������������������
Chief Complaint
-: Other (Change in mental status)
Subjective / Review of Systems
Patient seen and examined. No reported fevers. Currently on dialysis.
Vital Signs / Physical Exam
Vital Signs
Vital Signs
Temp Pulse Resp BP Pulse Ox
97.8 F 84 25 99/70 100
04/16/25 07:15 04/16/25 04:00 04/16/25 04:00 04/16/25 04:00 04/16/25 04:00
Physical Exam
Constitutional: Chronically Ill
Eyes: No Conjunctival Hemorrhage and Sclera Anicteric
Cardiovascular: Regular Rate and S1/S2
Pulmonary: Clear; Negative Wheezes, Rales or Rhonchi
Gastrointestinal: Soft, Non Tender, Non Distended and Normal Bowel Sounds
Extremities: Negative Edema
Wound: Other (Unstageable sacral wound; dressed.)
Neurological: Other (Responsive to touch. Awakens, but minimally verbal)
Lines: HD Cath (no erythema)
Objective Data
Lab Data
Lab Results
04/16/25 04:16
04/16/25 04:16
APTT 103.2 Sec (23.4-35.0) H 04/16/25 04:16
Lactic Acid Cancelled 04/10/25 14:15
Total Bilirubin 1.4 mg/dl (0.2-1.3) H 04/16/25 04:16
AST 16 U/L (17-59) L 04/16/25 04:16
ALT 13 U/L (0-50) 04/16/25 04:16
Alkaline Phosphatase 168 U/L (38-126) H 04/16/25 04:16
Most recent labs reviewed.
Micro Results:
04/10/25 12:30 Blood Culture - Final
Blood/Venous No Growth - Final Report
04/10/25 10:12 Blood Culture - Final
Blood/Venous No Growth - Final Report
04/13/25 14:55 C. difficile GDH Antigen & Toxins - Final
Feces/Stool Negative for toxigenic C.difficile
04/11/25 04:12 MRSA Screen - Final
Nose Staph aureus MRSA
Imaging:
04/09/2025 MRI brain without contrast: There are small foci of restricted diffusion involving the bilateral frontoparietal white matter, the left frontal white matter more anteriorly in the right basal ganglia consistent with acute/subacute
infarctions. These may be embolic in nature given the multivessel territory. Mild atrophy with sequelae of moderate chronic small vessel ischemic disease.
Prominent blooming artifact along the left paramedian parietal lobe which is likely sequelae of prior hemorrhage/hematoma.
Care Review
Plan reviewed with: Physician (Resident)
[2025-04-16] MEDS: SANTYL OINTMENT 1 APPLIC TOPICAL (09:33)
[2025-04-16] MEDS: THIAMINE INJECTION 100 MG IV (09:34)
[2025-04-16] MEDS: NSS (PRESERVATIVE FREE) 10 ML IV (09:34)
[2025-04-16] MEDS: PROTONIX IV 40 MG IV (09:34)
--- NOTE | 2025-04-16 11:11 | W.PN.NEPH.HD ---
Progress Note - Hemodialysis
-
Date of Service: April 16, 2025
Duration: 30 minutes and 3 hours
Potassium Bath: 4
Calcium Bath: 2.5
Opti-Dialyzer: 160
Ultrafiltration: Other (none)
Blood Flow: 400
Dialysate Flow: 600
Heparin: 0
EPO: 10393 units
[2025-04-16] MEDS: HEPARIN 3600 UNITS INTRACATH (11:48)
[2025-04-16 12:08] LABS: Glucose - Point of Care 100 mg/dl (70-99)
[2025-04-16] MEDS: HEPARIN 25000 UNITS/250 ML IV (13:12)
--- NOTE | 2025-04-16 13:35 | W.PN.UPDATE ---
Update Note
Progress Note Update
Spoke to the sister and she stated she would prefer a dobhoff tube to be placed tomorrow. Her and her sister want to be here for the procedure in case he does have a significant bleed and ends up passing away. She also asked whether TPN was an
option. I explained that the risks of infection outweighs the risks of bleed (especially now that platelets are above 50) and a dobhoff would provide better nutrition. She understands and plans to be here around 4pm tomorrow afternoon.
[2025-04-16] MEDS: DAKIN'S SOLUTION 0.125% 1/4 STRENGTH 10 ML TOPICAL (14:26)
[2025-04-16] MEDS: DESENEX/MITRAZOL/ZEASORB 1 APPLIC TOPICAL ×2 (14:26→20:35)
[2025-04-16] MEDS: D5LR 1000 IV (14:27)
--- NOTE | 2025-04-16 15:51 | CM ---
Chart reviewed. Case Management will continue to monitor and support disposition plan when medically stable
--- NOTE | 2025-04-16 17:48 | PTCARENOTE ---
Patient in bilateral wrist restraints/4 side rails for protection of removing tubes. Received HD today. No fluid removed. IV fluids and heparin drip infusing as ordered. PTT therapeutic, next PTT in am. Drip infusing at 1100 units/hr. Patient
for the most part is non-verbal. He will shout out some words. This afternoon he was shouting out ' Me ' several times. Could not get him to explain what he meant by that. Patient is anuric. He was INC of large green loose BM. Sacral wound
care done today as ordered. SR on monitor. VS stable.
[2025-04-16 17:58] LABS: Glucose - Point of Care 128 mg/dl (70-99)
[2025-04-17] VITALS (16 sets, daily range): BP systolic 86–166; BP diastolic 59–104
[2025-04-17 00:25] LABS: Glucose - Point of Care 143 mg/dl (70-99)
[2025-04-17] MEDS: LOPRESSOR IV ×2 (00:44→05:32)
[2025-04-17] MEDS: NOVOLOG FLEXPEN-MODERATE RESISTANCE SC ×2 (00:44→06:03)
[2025-04-17 04:35] LABS: APTT 102.3 Sec (23.4-35.0)
[2025-04-17 04:44] LABS: Blood Urea Nitrogen 12 mg/dl (9-20); Calcium 9.4 mg/dl (8.4-10.2); Carbon Dioxide 22 mmol/L (22-30); Chloride 107 mmol/L (98-107); Glucose 130 mg/dl (70-99); Magnesium 1.7 mg/dl (1.6-2.3); Potassium 3.2 mmol/L (3.5-5.1); Sodium 139 mmol/L (135-145); eGFR 37.97
[2025-04-17 04:50] LABS: Hematocrit 26.0 % (39.0-52.0); Hemoglobin 8.6 g/dL (13.0-18.0); Mean Corp Hgb Conc. 33.1 g/dL (33.0-37.0); Mean Corpuscular Volume 89.0 fL (80.0-94.0); Platelet Count 57 10^3/uL (130-400); Red Cell Dist. Width 18.2 % (11.5-14.5)
--- NOTE | 2025-04-17 04:59 | PTCARENOTE ---
Assumed care of pt this evening. Pt lethargic, NIH 25. Neuro checks ongoing q4. B/t soft wrist restraints in place as a protective intervention. Q2T ongoing. NSR on monitor. SpO2 98% on RA. Pt will become apneic and sats will drop to 50-60%. Patient
will tale a deep breath and SpO2 will quickly return to >95%. IVF and Heparin gtt infusing per protocol. Pt incontinent of multiple loose mucoid bowel movements overnight. Hygiene completed including CHG wipes and sacral dressing wound care. Pt
resting in bed with bed alarm on.
[2025-04-17] MEDS: KCL 160 MEQ IV (05:30)
[2025-04-17 05:55] LABS: Glucose - Point of Care 132 mg/dl (70-99)
--- NOTE | 2025-04-17 07:19 | W.PN.HOSP.TC ---
Addendum entered and electronically signed by Pedro Contreras MD 04/17/25 12:12:
Per discussion with nephrology thinks patient needs a peripheral smear.
Hematology evaluation requested for pancytopenia
Addendum entered and electronically signed by Pedro Contreras MD 04/17/25 12:09:
59 y/o patient had a prolonged hospitalization at [facility] January 11, 2025 to March 17, 2025 for intractable back pain, catheter associated infection, Klebsiella bacteremia. On long-term IV antibiotics cefepime and daptomycin with HD here
for acute change in mental status. Patient was obtunded on arrival and hypotensive. Baseline intermittently confused and bedbound since November per POA. Able to talk to sister on the phone at baseline
CT Head- No acute intracranial abnormality noted.There are mild/moderate periventricular and subcortical white matter hypodensities which are nonspecific, however likely sequelae of chronic small vessel ischemic disease.
CVS: S1-S2 normal
Chest: CTA B/L
Abdomen: Soft, NT / Bowel sounds present
Extremities: No edema
HARVESTING MANAGER: Patient is awake not able to answer questions for me. Dyskinetic movements noted, not following directions
EEG 04/11/2025--diffuse cortical dysfunction without focal abnormality. No seizures
Echo 04/11/2025-technically difficult study. Normal biventricular size and function without regional WMA. EF 60 to 65%. Aortic sclerosis
MRI of the brain-small focus of restricted diffusion involving bilateral frontoparietal white matter, left frontal white matter more anteriorly in the right basal ganglia consistent with acute/subacute infarctions. May be embolic in nature. Mild
atrophy and sequelae of moderate chronic small vessel disease. Prominent blooming artifact along the left paramedian parietal lobe which is likely of prior hemorrhage/hematoma
CT abdomen pelvis-anasarca, splenomegaly, atrophic bilateral kidneys, proctitis indeterminate etiology, diffuse wall thickening of the urinary bladder question outlet obstruction. Small focus of gas within the bladder could be related to recent
catheterization or infection. Recent fracture greater trochanter of the right femur. Osseous destructive process in the T8/T9 level which is incompletely imaged on this exam. Abnormal lucent and sclerotic appearance of the bones which could be
related to renal osteodystrophy.
On examination patient opens his eyes when his name called. Does not follow commands. He has tardive dyskinesia kind of movements.
Cardiovascular system S1-S2 appreciated
Chest clear to auscultation
Abdomen soft and nontender
# Acute metabolic encephalopathy
Multifactorial I do believe that strokes are contributing to this
We have placed a Dobbhoff tube finally as sister gave permission today.
Started BuSpar and Lexapro
# Recent fracture of the greater trochanter of the right femur-spoke to sister who states that patient [facility] a [facility] the [facility] had x-rays done. She did not think there was a fracture reported.
I have ordered x-rays of his femur
# Embolic CVA-continue Eliquis and statin. Neurology evaluation noted
# Diarrhea-C. difficile negative
# Elevated troponin
Possible ST depressions on EKG
Possible nonischemic myocardial injury
ECHO as above
No further recommendations from cardiology
# Chronic CHF-NOS-on dialysis now
# History of VRE and Klebsiella bacteremia -unclear if patient was supposed to continue it after discharge but was restarted or continued at rehab. Now he is off of all antibiotics. Per discussion with [facility] we were made aware that
he completed the antibiotics prior to discharge
# ESRD on HD Monday
Left anterior chest wall HD catheter
Nephrology consulted and following
# Paroxysmal atrial fibrillation-continue metoprolol and Eliquis
# Pancytopenia-patient had a bone marrow biopsy at [facility]. No acute abnormalities. No gene mutation
Hopefully counts will improve now that he is off of antibiotics
# Hypertension-metoprolol
# Hyperlipidemia-restart Crestor
# Hypokalemia-replete
# Bedbound since November 2024 with intermittent confusion at baseline
# Anxiety and depression-on buspirone 10 mg 3 times daily, Lexapro 10 mg, Haldol 10 mg every 48 hours as needed for agitation as outpatient. Restarted buspirone and Lexapro
# DM- SSI only with accu checks
# Concern for vascular dementia
# Unstageable sacral pressure injury, stage I B/L heel pressure injury-turn patient every 2 hours and also continue with wound care
# Amputation of the left toes 1-3
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
# DVT prophylaxis-Eliquis
# Full code per discussion with sister
POA's sister Geovanni updated regarding patient's condition again today. She was agreeable for Dobbhoff tube today, which was placed..
Discussed with nephrology, infectious disease
Discussed with nursing at bedside
Time spent over 50 min
Original Note:
Today's Communication/Plan
-
Replete K
Dobhoff to start nutrition
D/c heparin, restart eliquis, lexapro, buspirone and PO metoprolol through tube
Cont to hold gabapentin and haldol with ongoing AMS
Assessment / Plan
Assessment / Plan
59 y/o patient had a prolonged hospitalization at [facility] January 11, 2025 to March 17, 2025 for intractable back pain, catheter associated infection, Klebsiella bacteremia. On long-term IV antibiotics cefepime and daptomycin with HD here
for acute change in mental status. Patient was obtunded on arrival and hypotensive. Baseline intermittently confused and bedbound since November per LEA. Able to talk to sister on the phone at baseline
CT Head- No acute intracranial abnormality noted.There are mild/moderate periventricular and subcortical white matter hypodensities which are nonspecific, however likely sequelae of chronic small vessel ischemic disease.
EEG 04/11/2025--diffuse cortical dysfunction without focal abnormality. No seizures
Echo 04/11/2025--technically difficult study. Normal biventricular size and function without regional WMA. EF 60 to 65%. Aortic sclerosis
Brain MRI 04/13/25-- There are small foci of restricted diffusion involving the bilateral frontoparietal white matter, the left frontal white matter more anteriorly in the right basal ganglia consistent with acute/subacute infarctions. These may be
embolic in nature given the multivessel territory.
Mild atrophy with sequelae of moderate chronic small vessel ischemic disease.
Prominent blooming artifact along the left paramedian parietal lobe which is likely sequelae of prior hemorrhage/hematoma.
CT ab/pelvis with IV contrast 04/15/25 impression:
IMPRESSION:
1. Examination significantly limited as above.
2. Anasarca.
3. Splenomegaly.
4. Atrophic changes bilateral kidneys with extensive cystic change as above.
5. Proctitis, indeterminate etiology.
6. Diffuse wall thickening of the urinary bladder, question outlet obstruction or neurogenic bladder. Small focus of gas within the bladder which could be related to recent catheterization or infection.
7. Recent fracture greater trochanter right femur.
8. Osseous destructive process at the T8-T9 level which is incompletely imaged on this examination.
9. Abnormal lucent and sclerotic appearance of the bones which could be related to renal osteodystrophy.
#Dobhoff placement/starting nutrition
--Okay to place Dobbhoff per sister this am - placed - check placement with x-ray
--Start tube feeds per dietary recommendations
--Monitor for re-feeding syndrome
# CVA
--MRI of the brain revealed multiple small foci in bilateral frontotemporal parietal white matter and left frontal white matter anteriorly in the right basal ganglia consistent with acute/subacute infarcts
--Neurology does not believe it is contributing to AMS and there are no treatment options at this point as already on anticoagualtion
--Appears to be embolic in nature
--Appreciate cardiology for ALENA to eval for endocarditis - cardiology will do ALENA once AAO. High risk of aspiration due to obtunded state.
# Acute metabolic encephalopathy
--Hypotension/polypharmacy/hypovolemia/CVA
--EEG without seizures or status
--Advance diet as tolerated per speech evaluation and recommendations
--Hold melatonin, Haldol, gabapentin, Lexapro -> Restart lexapro now that dobhoff is in. Cont to hold gabapenting and haldol for AMS
--Cefepime was discontinued and changed to Zosyn 04/12/2025 -> zosyn d/c on 04/16
--Patient is still not able to follow directions or answer questions
# History of VRE and Klebsiella bacteremia
--on IV Zosyn with HD -> d/c as records indicate completion of antibiotics at [place] and unclear as to why they were started at [facility]. Cultures have been negative and afebrile.
--Infectious disease appreciated
#Metastatic disease?
--Hospital records from [place] revealed concerns for metastatic disease after MRI of spine done. Some proctocolitis of bowels noted on imaging as well.
--CT ab/pelvis revealed no obvious metastatic disease
# Pancytopenia
--Anemia likely secondary to chronic kidney disease
--Needs outpatient follow-up with hematology
--BM biopsy and MM work up was done there - BM biopsy records obtained revealing no BM or genetic mutations
# Diarrhea
--c. diff (-)
# Elevated troponin
--Possible ST depressions on EKG
--Possible nonischemic myocardial injury
--ECHO as above
--No further recommendations from cardiology - likely baseline trop in setting of ESRD
# Chronic CHF-NOS-on dialysis now
# ESRD on HD Monday
--Left anterior chest wall HD catheter
--Nephrology appreciated
# Paroxysmal atrial fibrillation
--metoprolol to be switched to IV. Patient is n.p.o. therefore Eliquis was switched to heparin drip -> d/c heparin, switch back to Eliquis with dobhoff in
# Hypertension-metoprolol IV
# Hyperlipidemia-Hold statin while on daptomycin
# Hypokalemia-replete
# Bedbound since November 2024 with intermittent confusion at baseline
# Anxiety and depression
--on buspirone 10 mg 3 times daily, Lexapro 10 mg, Haldol 10 mg every 48 hours as needed for agitation as outpatient.
--Currently p.o. medicines are on hold as patient is n.p.o. -> restart buspirone and lexapro now with dobhoff
# DM- SSI only with accu checks
# Concern for vascular dementia
# Unstageable sacral pressure injury, stage I B/L heel pressure injury-turn patient every 2 hours and also continue with wound care
# Amputation of the left toes 1-3
# Osseous destruction of T8-T9
#Recent R sided fracture greater trochanter
#Splenomegaly
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
DVT prophylaxis-Heparin gtt
Full code
POA's sister Geovanni. She is okay for Tube feeds. Plan to place dobhoff today.
Anticipated Discharge: > 48 hours
Subjective/Interval History
-
Date of Service: April 17, 2025
Opening eyes when calling name, but not following commands. Appears to be grimacing in pain vs tardive dyskinesia movements? Updated sister about improved platelet counts and she is okay with dobhoff tube placement today.
Objective Data
-
Labs:
Laboratory Results
04/17/25
03:49
WBC 2.4 L*
Hgb 8.6 L
Hct 26.0 L
Plt Count 57 L
APTT 102.3 H
Sodium 139
Potassium 3.2 L
Chloride 107
Carbon Dioxide 22
BUN 12
Creatinine 2.0 H
Glucose 130 H
Calcium 9.4
Vital Signs:
Vital Signs
Temp Pulse Resp BP Pulse Ox
98.9 F 97 17 98/65 98
04/17/25 04:24 04/17/25 04:00 04/17/25 04:00 04/17/25 04:00 04/17/25 04:24
I&O
04/16/25 04/17/25 04/18/25
06:59 06:59 06:59
Intake Total 1141
Output Total 0 / 0
Balance 1141
Review of Systems
-
Unable to obtain full review of systems at this time due to: Dementia and Acuity
Physical Exam
-
General: Appears Chronically Ill
HEENT: Normocephalic
Respiratory: Clear to Auscultation
Cardiac: Regular Rhythm and S1/S2
GI: Soft, Nontender, Nondistended and Normal Bowel Sounds
Musculoskeletal: No Cyanosis, No Edema and Other (Missing toes )
Skin: Warm and Dry
[2025-04-17] MEDS: DAKIN'S SOLUTION 0.125% 1/4 STRENGTH 1 ML TOPICAL (08:14)
[2025-04-17] MEDS: DESENEX/MITRAZOL/ZEASORB 1 APPLIC TOPICAL ×2 (08:14→20:56)
[2025-04-17] MEDS: THIAMINE INJECTION 100 MG IV (08:28)
[2025-04-17] MEDS: SANTYL OINTMENT 1 APPLIC TOPICAL (08:28)
[2025-04-17] MEDS: PROTONIX IV 40 MG IV (08:28)
[2025-04-17] MEDS: NSS (PRESERVATIVE FREE) 10 ML IV (08:28)
[2025-04-17] MEDS: D5LR 1000 IV (08:29)
--- NOTE | 2025-04-17 09:14 | W.PN.ID1 ---
Date of Service
Date of Service: April 17, 2025
Today's Communication
Observe off antibiotics.
Assessment / Plan
Encephalopathy; ongoing
- ?TME ?med related (cefepime) ?CVA
Hx VRE / Klebsiella infection
- on dapto / cefepime, from nursing facility.
Unstageable sacral wound
Vascular dementia
P A-fib (on Eliquis)
ESRD�HD (MWF)
DM
PAD
CHF
Anxiety/depression
Recommendations:
01/27/25 Bcx: VRE (sensitive to amp, dapto, linezolid)
Klebsiella aerogenes (Sensitive to: t/sulfa, FQ, tobra, gent, pip/tazo, cefepime (<2), ceftaz (4))
Reviewed extensive records from [facility]. According to those records, the patient had VRE and Klebsiella bacteremia (as above) attributed to his dialysis cath, which was changed in mid January. Per his discharge summary, he completed a
course of antibiotics prior to being discharged. He arrived here to [facility] from [facility] on antibiotics (daptomycin / cefepime). Patient appears to have been restarted on antibiotics upon admission to [facility], but for unclear
reasons. Discharge med list from [facility] do not show that any antibiotics were to be continued.
Blood here cx's neg to date.
Antibiotics discontinued 04/16/2025.
Local care to sacral wound.
Monitor white count and temperature curve.
����������������������������������������������������������
Chief Complaint
-: Other (Change in mental status)
Subjective / Review of Systems
Review of Systems: No Fever
Vital Signs / Physical Exam
Vital Signs
Vital Signs
Temp Pulse Resp BP Pulse Ox
99.3 F 96 20 103/89 100
04/17/25 07:43 04/17/25 08:00 04/17/25 08:00 04/17/25 08:00 04/17/25 08:33
Physical Exam
Constitutional: Chronically Ill
Eyes: No Conjunctival Hemorrhage and Sclera Anicteric
Cardiovascular: Regular Rate and S1/S2
Pulmonary: Clear; Negative Wheezes, Rales or Rhonchi
Gastrointestinal: Soft, Non Tender, Non Distended and Normal Bowel Sounds
Extremities: Negative Edema
Wound: Other (Unstageable sacral wound; dressed.)
Neurological: Other (Responsive to touch. Awakens, but minimally verbal)
Lines: HD Cath (no erythema)
Objective Data
Lab Data
Lab Results
04/17/25 03:49
04/17/25 03:49
APTT 102.3 Sec (23.4-35.0) H 04/17/25 03:49
Lactic Acid Cancelled 04/10/25 14:15
Total Bilirubin 1.4 mg/dl (0.2-1.3) H 04/16/25 04:16
AST 16 U/L (17-59) L 04/16/25 04:16
ALT 13 U/L (0-50) 04/16/25 04:16
Alkaline Phosphatase 168 U/L (38-126) H 04/16/25 04:16
Most recent labs reviewed.
Micro Results:
04/10/25 12:30 Blood Culture - Final
Blood/Venous No Growth - Final Report
04/10/25 10:12 Blood Culture - Final
Blood/Venous No Growth - Final Report
04/13/25 14:55 C. difficile GDH Antigen & Toxins - Final
Feces/Stool Negative for toxigenic C.difficile
04/11/25 04:12 MRSA Screen - Final
Nose Staph aureus MRSA
Imaging:
04/09/2025 MRI brain without contrast: There are small foci of restricted diffusion involving the bilateral frontoparietal white matter, the left frontal white matter more anteriorly in the right basal ganglia consistent with acute/subacute
infarctions. These may be embolic in nature given the multivessel territory. Mild atrophy with sequelae of moderate chronic small vessel ischemic disease.
Prominent blooming artifact along the left paramedian parietal lobe which is likely sequelae of prior hemorrhage/hematoma.
--- NOTE | 2025-04-17 11:00 | PTCARENOTE ---
see nursing assessment and flowsheet. dobhoff inserted by hospitalist. x ray done. awaiting tube feed orders from oral health therapist. pt sat 100 on room air but he occasionally holds his breath and desats down to 60s temporarily. 02 2l placed and sat is
currently 100 percent. hospitalist made aware. hip x ray completed at bedside.
--- NOTE | 2025-04-17 11:10 | W.PN.NEPH.PH ---
Today's Communication / Plan
-
Dialysis tomorrow
Assessment/Plan
-
59M [facility] resident ESRD MWF pafib Eliquis HTN HLD DM PAD toe amputations CHF Anxiety Depression suspected underlying vascular dementia recent prolonged hospitalization [facility] January 11 to March 17 for intractable back pain catheter
associated infection VR and Klebsiella bacteremia (following which he was discharged to [facility] with terminal manager IV abx Cefipime and Daptomycin to be given with HD- sent by SNF for evaluation AMS, normally AOx3 at baseline, essentially obtunded on
arrival with associate severe hypotension systolic 70s. Improved with IVF bolus,
Impression
ESRD MWF [facility]
Sepsis
A-fib
Dementia/AMS
Plan.
Dialysis tomorrow
There was no ultrafiltration yesterday
Starting off antibiotics
No acute need for dialysis today.
See orders
-
-
Date of Service: April 17, 2025
CC / HPI / ROS
-
Chief Complaint:
AMS
History of Present Illness:
ESRD presents with altered mental status
BP low but stable
Review of Systems:
The patient not responding does open his eyes but does not follow commands and is in no distress
Labs
-
Labs:
WBC 2.4 10^3/uL (4.8-10.8) L* 04/17/25 03:49
RBC 2.92 10^6/uL (4.70-6.10) L 04/17/25 03:49
Plt Count 57 10^3/uL (130-400) L 04/17/25 03:49
Sodium 139 mmol/L (135-145) 04/17/25 03:49
Potassium 3.2 mmol/L (3.5-5.1) L 04/17/25 03:49
Chloride 107 mmol/L (98-107) 04/17/25 03:49
Carbon Dioxide 22 mmol/L (22-30) 04/17/25 03:49
BUN 12 mg/dl (9-20) 04/17/25 03:49
Creatinine 2.0 mg/dL (0.7-1.3) H 04/17/25 03:49
eGFR 37.97 04/17/25 03:49
Glucose 130 mg/dl (70-99) H 04/17/25 03:49
Calcium 9.4 mg/dl (8.4-10.2) 04/17/25 03:49
Phosphorus 5.5 mg/dl (2.5-4.5) H 04/10/25 10:12
Albumin 2.9 g/dl (3.5-5.0) L 04/16/25 04:16
Physical Exam
-
Vital Signs:
Vital Signs
Temp Pulse Resp BP Pulse Ox
99.3 F 96 20 103/89 100
04/17/25 07:43 04/17/25 08:00 04/17/25 08:00 04/17/25 08:00 04/17/25 08:33
Cardiovascular:: Regular rate and rhythm
Respiratory:: Bilateral: Coarse
Lung Excursion:: Normal
Abdomen:: Nontender and Soft
Bowel Sounds:: Normal
Extremity Edema:: None: Bilateral:
[2025-04-17 12:26] LABS: Glucose - Point of Care 169 mg/dl (70-99)
[2025-04-17] MEDS: NOVOLOG FLEXPEN-MODERATE RESISTANCE 1 UNITS SC ×2 (12:33→17:04)
--- NOTE | 2025-04-17 12:34 | CM ---
ESRD-HD, Acute metabolic encephalopathy, confused, for Dobhoff insertion. Discharge POC: Return to [facility] for resumption of LTC.
--- NOTE | 2025-04-17 13:49 | CON.ONC ---
Consultation
-
Date Consultation Requested: 04/17/25
Date Consultation Performed: 04/17/25
Impression
Impression
Pancytopenia due to acute/chronic illness
Vascular dementia
CVA
Atrial fibrillation
Plan
Plan
Appropriate to evaluate for TTP LDH in the normal range and peripheral smear without schistocytes which would refute the diagnosis
Assess lupus anticoagulant and antiphospholipid antibodies to ascertain causes of thrombosis refractory to apixaban
Monitor CBC
Will follow
Patient History
History of Present Illness
Patient is a 59-year-old [facility] resident with ESRD, AF, HTN HLD DM PAD toe amputations CHF Anxiety Depression suspected underlying vascular dementia recent prolonged hospitalization [facility] January 11 to March 17 for intractable back
pain catheter associated infection VR and Klebsiella bacteremia (following which he was discharged to [facility] with assisted IV abx Cefipime and Daptomycin to be given with HD- sent by SNF for evaluation AMS change, normally AOx3 at baseline,
essentially obtunded. Improved with IVF bolus, patient responding to verbal stimuli but nonverbal. Been asked to evaluate for possible hematologic contribution to current mental status and whether there is alternative therapy for
vascular/thrombotic LEAD DATA ARCHITECT disease.
Past-Medical/Surgical History
Past History
P A-fib (on Eliquis)
ESRD�HD (MWF)
DM
PAD
CHF
Anxiety/depression
Suspected vascular dementia
Surgical History
Left ACW HD catheter
Amputation left toes 1�3
Social History
Tobacco: Non-Smoker
Alcohol: None
Drug: None
Living: [facility]
Family History
Family History: Unable to Obtain
Patient Medication
�Medication �Instructions �Recorded �Confirmed �Last Taken �Type
acetaminophen 325 mg tablet 650 mg PO Q6HPRN PRN mild pain 04/10/25 04/10/25 Unknown History
(Tylenol)
apixaban 2.5 mg tablet (Eliquis) 2.5 mg PO BID Blood Clot 04/10/25 04/10/25 Unknown History
Prevention/Tx
bisacodyl 10 mg rectal suppository 10 mg SC DAILYPRN PRN if no bm 04/10/25 04/10/25 Unknown History
(Dulcolax (bisacodyl)) aftr mom
buspirone 10 mg tablet 10 mg PO TID Mental Health/Anxiety 04/10/25 04/10/25 Unknown History
cefepime 2 gram solution for 2 g IV MOWEFR Infection 04/10/25 04/10/25 Unknown History
injection
daptomycin 500 mg intravenous 470 mg IV MOWEFR Infection 04/10/25 04/10/25 Unknown History
solution
docusate sodium 100 mg capsule 100 mg PO DAILY Constipation 04/10/25 04/10/25 Unknown History
(Colace)
escitalopram oxalate 20 mg tablet 20 mg PO DAILY Mental 04/10/25 04/10/25 Unknown History
(Lexapro) Health/Anxiety
gabapentin 100 mg capsule 100 mg PO TID Pain 04/10/25 04/10/25 Unknown History
haloperidol 10 mg tablet 10 mg PO [id number] PRN before 04/10/25 04/10/25 Unknown History
dialysis/AGITATION/ANXIETY
insulin lispro 100 unit/mL 1 sliding scale dose SC AC Diabetes 04/10/25 04/10/25 Unknown History
subcutaneous pen
magnesium oxide 168 mg PO DAILY Electrolyte 04/10/25 04/10/25 Unknown History
Repletion
melatonin 3 mg tablet 6 mg PO HS Sleep 04/10/25 04/10/25 Unknown History
metoprolol tartrate 50 mg tablet 50 mg PO BID Heart 04/10/25 04/10/25 Unknown History
Disease/Condition
ondansetron HCl 4 mg tablet 4 mg PO Q8HPRN PRN nausea 04/10/25 04/10/25 Unknown History
pantoprazole 40 mg tablet,delayed 40 mg PO DAILY Gastrointestinal 04/10/25 04/10/25 Unknown History
release (Protonix) Issue
potassium chloride 20 mEq 40 meq PO BID Electrolyte Repletion 04/10/25 04/10/25 Unknown History
tablet,extended release
rosuvastatin 10 mg tablet (Crestor) 10 mg PO DAILY High Cholesterol 04/10/25 04/10/25 Unknown History
sorbitol 70 % solution 30 ml PO DAILYPRN PRN constipation 04/10/25 04/10/25 Unknown History
therapeutic multivitamin 1 tab PO DAILY Supplement 04/10/25 04/10/25 Unknown History
thiamine HCl (vitamin B1) 100 mg 100 mg PO DAILY Supplement 04/10/25 04/10/25 Unknown History
tablet
Active Medications
Generic Name Dose Route Start Last Admin
Trade Name Freq PRN Reason Stop Dose Admin
Acetaminophen 650 mg 04/17/25 10:07
Acetaminophen 325 Mg Tablet TUBE 05/08/25 20:50
Q6HPRN PRN
mild pain
Albumin Human 12.5 grams 04/18/25 08:00
Albumin 12.5 Grams/50 Ml Bag *For Hemodialysis* IV 04/18/25 23:59
HD-Q1HPRN PRN
SBP < 90 mmHg
Apixaban 2.5 mg 04/17/25 10:45
Apixaban (Eliquis) 2.5 Mg Tablet TUBE 05/15/25 10:44
BID LAUREN
Bisacodyl 10 mg 04/10/25 20:51
Bisacodyl 10 Mg Rectal Suppository RECTAL 05/08/25 20:50
[id number] PRN
constipation
Buspirone HCl 10 mg 04/17/25 16:00
Buspirone 10 Mg Tablet TUBE 05/15/25 15:59
TID LAUREN
Collagenase 0 applic 04/12/25 08:00 04/17/25 08:28
Collagenase Ointment 2.5 Gram Jar TOPICAL 05/10/25 07:59 1 applic
DAILY LAUREN Administration
Dextrose 12.5 grams 04/10/25 20:51
Dextrose 50% (0.5 Grams/Ml) 50 Ml Syringe IV 05/08/25 20:50
[id number] PRN
hypoglycemia
Protocol
Docusate Sodium 100 mg 04/11/25 08:00 04/15/25 07:57
Docusate Sodium 100 Mg Capsule PO 05/09/25 07:59 Not Given
On Hold: 04/15/25 13:39 DAILY LAUREN
Epoetin Dipak-epbx 10,000 units 04/18/25 08:00
Epoetin Dipak-Epbx (Retacrit) 10,000 Units/Ml Vial IV 04/18/25 08:01
HD-ONCE ONE
Escitalopram Oxalate 20 mg 04/17/25 11:00
Escitalopram 20 Mg Tablet TUBE 05/15/25 10:59
DAILY LAUREN
Glucagon 1 mg 04/10/25 20:51
Glucagon 1 Mg Vial IM 05/08/25 20:50
PRN PRN
hypoglycemia
Protocol
Insulin Aspart 0 units 04/11/25 00:00 04/17/25 12:33
Insulin Aspart Moderate Resistance 300 Units/3 Ml Pen.Injctr SC 05/09/25 00:00 1 units
Q6 LAUREN Administration
Protocol
Mannitol 12.5 grams 04/18/25 08:00
Mannitol 25% (12.5 Grams/50 Ml) Vial IV 04/18/25 23:59
HD-Q1HPRN PRN
SBP < 90 mmHg
Metoprolol Tartrate 50 mg 04/17/25 10:19
Metoprolol 50 Mg Regular Release Tablet TUBE 05/08/25 20:50
BID LAUREN
Miconazole Nitrate 0 applic 04/11/25 08:00 04/17/25 08:14
Miconazole Powder Bottle TOPICAL 05/09/25 07:59 1 applic
BID LAUREN Administration
Multivitamins Therapeutic 1 tablet 04/17/25 10:38
Multivitamin Tablet TUBE 05/09/25 07:59
DAILY LAUREN
Pantoprazole Sodium 40 mg 04/10/25 20:51 04/17/25 08:28
Pantoprazole Sodium 40 Mg/10 Ml Vial IV 05/08/25 20:50 40 mg
DAILY LAUREN Administration
Polyethylene Glycol 17 grams 04/10/25 20:51
Polyethylene Glycol Powder 17 Grams Packet PO 05/08/25 20:50
On Hold: 04/15/25 13:40 DAILYPRN PRN
constipation
Potassium Chloride 40 meq 04/10/25 20:51 04/13/25 08:25
Potassium Chloride 20 Meq Extended Release Tablet PO 05/08/25 20:50 Not Given
On Hold: 04/13/25 08:59 BID LAUREN
Rosuvastatin Calcium 10 mg 04/17/25 18:00
Rosuvastatin (Crestor) 10 Mg Tablet TUBE 05/15/25 17:59
QPM LAUREN
Sennosides 8.6 mg 04/10/25 20:51
Sennosides (Senokot) 8.6 Mg Tablet PO 05/08/25 20:50
On Hold: 04/15/25 13:40 BIDPRN PRN
constipation
Sodium Chloride 0 flush 04/10/25 22:00
Sodium Chloride 0.9% (Flush) Syringe IV 05/08/25 21:59
PER PROTOCOL LAUREN
Sodium Chloride 10 ml 04/10/25 20:51 04/17/25 08:28
Sodium Chloride 0.9% (Preservative Free) 10 Ml Vial IV 05/08/25 20:50 10 ml
DAILY LAUREN Administration
Sodium Hypochlorite 0 ml 04/12/25 08:00 04/17/25 08:14
Dakin's Solution 0.125% (1/4 Strength) 473 Ml Bottle TOPICAL 05/10/25 07:59 1 ml
DAILY LAUREN Administration
Thiamine HCl 100 mg 04/18/25 08:00
Thiamine 100 Mg Tablet TUBE 05/16/25 07:59
DAILY LAUREN
Review of Systems
-
Unobtainable
Physical Exam
-
Physical Exam
Constitutional: Chronically Ill, Non-toxic and Cachetic lethargic
Eyes: No Conjunctival Hemorrhage and Sclera Anicteric
Cardiovascular: S1/S2; Negative S3/S4
Pulmonary: Negative Wheezes or Rhonchi
Gastrointestinal: Soft, Non Distended, Normal Bowel Sounds and No Rebound
Extremities: Negative Edema, Cyanosis or Erythema
Psychological: Calm
Lines: HD Cath
Labs
Lab Results
WBC 2.4 10^3/uL (4.8-10.8) L* 04/17/25 03:49
RBC 2.92 10^6/uL (4.70-6.10) L 04/17/25 03:49
Hgb 8.6 g/dL (13.0-18.0) L 04/17/25 03:49
Hct 26.0 % (39.0-52.0) L 04/17/25 03:49
MCV 89.0 fL (80.0-94.0) 04/17/25 03:49
MCH 29.5 pg (27.0-31.0) 04/17/25 03:49
MCHC 33.1 g/dL (33.0-37.0) 04/17/25 03:49
RDW 18.2 % (11.5-14.5) H 04/17/25 03:49
Plt Count 57 10^3/uL (130-400) L 04/17/25 03:49
MPV 11.0 fL (7.4-10.4) H 04/17/25 03:49
Abs Immat Gran (auto) 0.0 10^3/uL (0-0.05) 04/15/25 03:48
Absolute Neuts (auto) 3.6 10^3/uL (1.4-6.5) 04/15/25 03:48
Absolute Lymphs (auto) 0.5 10^3/uL (1.2-3.4) L 04/15/25 03:48
Absolute Monos (auto) 0.3 10^3/uL (0.1-0.6) 04/15/25 03:48
Absolute Eos (auto) 0.1 10^3/uL (0-0.7) 04/15/25 03:48
Absolute Basos (auto) 0.1 10^3/uL (0-0.2) 04/15/25 03:48
Immature Gran % 0.7 % (0-0.5) H 04/15/25 03:48
Neutrophils % 78.2 % (42.2-75.2) H 04/15/25 03:48
Lymphocytes % 11.7 % (20.5-51.1) L 04/15/25 03:48
Monocytes % 5.9 % (1.7-9.3) 04/15/25 03:48
Eosinophils % 2.4 % (0-6) 04/15/25 03:48
Basophils % 1.1 % (0-2) 04/15/25 03:48
Creatinine 2.0 mg/dL (0.7-1.3) H 04/17/25 03:49
Vital Signs
Vital Signs
Temp Pulse Resp BP Pulse Ox
99.3 F 96 20 103/89 100
04/17/25 07:43 04/17/25 08:00 04/17/25 08:00 04/17/25 08:00 04/17/25 08:33
--- NOTE | 2025-04-17 14:40 | PTOTSP ---
Speech Language Pathology
Pt seen for cognitive-linguistic tx. Frequent movements noted with facial grimacing and eye squinting. Pt answered 'no' when asked if his name was 'Saturnino.' No other verbalizations noted throughout session despite frequent direct questioning.
No visual fixation or tracking noted. Responded immediately to noxious stimulation in nailbeds in all but RLE. He did not attempt to answer any yes/no questions or follow any directions.
Pt also seen for dysphagia tx. When P.O. presented to pt, incoordinated, groping oral movements noted. Question oral motor apraxia. If pt continues with acceptance/swallow initiation over a couple of sessions, may consider initiating modified
diet. However, pt is at a very high risk for aspiration given mentation and constant groping oral motor movements. Instrumental swallowing assessment in the future would be ideal; however, constant movements would make VSE/FEES difficult.
Recommend:
1. Strict NPO
2. Oral care 4x/day with suctioning as needed
3. Not appropriate for Aspiration Risk Hydration Protocol (ARHP) at this time given cognitive status
4. Non-oral meds
5. DIRECTOR OF GIFT PLANNING to continue to follow for dysphagia and cognitive-linguistic tx
[2025-04-17 14:59] LABS: LDH 231 U/L (120-246)
[2025-04-17] MEDS: ELIQUIS TUBE (16:29)
[2025-04-17] MEDS: LEXAPRO 20 MG TUBE (16:29)
[2025-04-17] MEDS: BUSPAR 10 MG TUBE ×2 (16:30→20:56)
[2025-04-17] MEDS: CRESTOR 10 MG TUBE (17:11)
[2025-04-17 17:13] LABS: Glucose - Point of Care 152 mg/dl (70-99)
[2025-04-17] MEDS: TYLENOL 650 MG TUBE (17:59)
[2025-04-17 20:28] LABS: Hematocrit 24.4 % (39.0-52.0); Hemoglobin 8.1 g/dL (13.0-18.0)
[2025-04-17] MEDS: ELIQUIS 2.5 MG TUBE (20:56)
[2025-04-17] MEDS: LOPRESSOR 50 MG TUBE (20:56)
--- NOTE | 2025-04-17 23:12 | PTCARENOTE ---
Assumed care of patient this evening. Pt lethargic, NIH 19. Neuro checks ongoing q4 hours. B/t soft wrist restraints in place as a protective intervention. Q2T ongoing. Dobhoff in place at the 65 cm leann. Nepro w/ carb steady TF infusing at 10 mL/hr
with 25 mL/hr flush. LAUREN medications administered via tube. NSR on monitor. SpO2 98% on RA. Hygiene completed including CHG wipes and sacral dressing wound care. Pt resting in bed with bed alarm on.
[2025-04-18] VITALS (27 sets, daily range): BP systolic 94–151; BP diastolic 61–82
[2025-04-18 00:01] LABS: Glucose - Point of Care 170 mg/dl (70-99)
[2025-04-18] MEDS: NOVOLOG FLEXPEN-MODERATE RESISTANCE 1 UNITS SC (00:38)
[2025-04-18 05:15] LABS: ALT (SGPT) 12 U/L (0-50); AST (SGOT) 17 U/L (17-59); Albumin 2.6 g/dl (3.5-5.0); Alkaline Phosphatase 135 U/L (38-126); Blood Urea Nitrogen 18 mg/dl (9-20); Calcium 9.0 mg/dl (8.4-10.2); Carbon Dioxide 30 mmol/L (22-30); Chloride 108 mmol/L (98-107); Glucose 128 mg/dl (70-99); Hematocrit 23.5 % (39.0-52.0); Hemoglobin 7.4 g/dL (13.0-18.0); Magnesium 1.8 mg/dl (1.6-2.3); Mean Corp Hgb Conc. 31.5 g/dL (33.0-37.0); Mean Corpuscular Volume 92.9 fL (80.0-94.0); Platelet Count 50 10^3/uL (130-400); Potassium 3.7 mmol/L (3.5-5.1); Red Cell Dist. Width 18.6 % (11.5-14.5); Sodium 142 mmol/L (135-145); Total Protein 5.1 g/dl (6.3-8.2); eGFR 25.36
[2025-04-18 06:27] LABS: Glucose - Point of Care 135 mg/dl (70-99)
[2025-04-18] MEDS: NOVOLOG FLEXPEN-MODERATE RESISTANCE SC ×4 (06:31→23:28)
--- NOTE | 2025-04-18 07:59 | W.PN.HOSP.TC ---
Addendum entered and electronically signed by Pedro Contreras MD 04/18/25 13:53:
59 y/o patient had a prolonged hospitalization at [facility] January 11, 2025 to March 17, 2025 for intractable back pain, catheter associated infection, Klebsiella bacteremia. On long-term IV antibiotics cefepime and daptomycin with HD here
for acute change in mental status. Patient was obtunded on arrival and hypotensive. Baseline intermittently confused and bedbound since November per POA. Able to talk to sister on the phone at baseline
CT Head- No acute intracranial abnormality noted.There are mild/moderate periventricular and subcortical white matter hypodensities which are nonspecific, however likely sequelae of chronic small vessel ischemic disease.
CVS: S1-S2 normal
Chest: CTA B/L
Abdomen: Soft, NT / Bowel sounds present
Extremities: No edema
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 Dyskinetic movements noted, not following directions
EEG 04/11/2025--diffuse cortical dysfunction without focal abnormality. No seizures
Echo 04/11/2025-technically difficult study. Normal biventricular size and function without regional WMA. EF 60 to 65%. Aortic sclerosis
MRI of the brain-small focus of restricted diffusion involving bilateral frontoparietal white matter, left frontal white matter more anteriorly in the right basal ganglia consistent with acute/subacute infarctions. May be embolic in nature. Mild
atrophy and sequelae of moderate chronic small vessel disease. Prominent blooming artifact along the left paramedian parietal lobe which is likely of prior hemorrhage/hematoma
CT abdomen pelvis-anasarca, splenomegaly, atrophic bilateral kidneys, proctitis indeterminate etiology, diffuse wall thickening of the urinary bladder question outlet obstruction. Small focus of gas within the bladder could be related to recent
catheterization or infection. Recent fracture greater trochanter of the right femur. Osseous destructive process in the T8/T9 level which is incompletely imaged on this exam. Abnormal lucent and sclerotic appearance of the bones which could be
related to renal osteodystrophy.
X-ray of the right fever-findings suggesting subacute fracture of the right greater trochanter
On examination patient opens his eyes when his name called. Does not follow commands. No involuntary movements noted today
Cardiovascular system S1-S2 appreciated
Chest clear to auscultation
Abdomen soft and nontender
Sacral decubitus ulcer-no new changes sloughing noted
# Acute metabolic encephalopathy
Multifactorial I do believe that strokes are contributing to this
We have placed a Dobbhoff tube finally as sister gave permission today.
Started BuSpar and Lexapro
# Recent fracture of the greater trochanter of the right femur-spoke to sister who states that [facility] had x-rays done. She did not think there was a fracture reported.
No intertrochanteric fracture. Await orthopedic evaluation unlikely a candidate for surgery
# Embolic CVA-continue Eliquis and statin. Neurology evaluation noted
# Diarrhea-C. difficile negative
# Elevated troponin
Possible ST depressions on EKG
Possible nonischemic myocardial injury
ECHO as above
No further recommendations from cardiology
# Chronic CHF-NOS-on dialysis now
# History of VRE and Klebsiella bacteremia -unclear if patient was supposed to continue it after discharge but was restarted or continued at rehab. Now he is off of all antibiotics.
Per discussion with [facility] we were made aware that he completed the antibiotics prior to discharge
# ESRD on HD Monday
Left anterior chest wall HD catheter
Nephrology consulted and following
# Paroxysmal atrial fibrillation-continue metoprolol and Eliquis
# Pancytopenia-patient had a bone marrow biopsy at [facility]. No acute abnormalities. No gene mutation
Hopefully counts will improve now that he is off of antibiotics
Peripheral smear was reviewed. Patient does not have any schistocytes per hematology ,lupus anticoagulant panel pending
# Hypertension-metoprolol
# Hyperlipidemia-restarted Crestor
# Hypokalemia-replete PRN
# Bedbound since November 2024 with intermittent confusion at baseline
# Anxiety and depression-on buspirone 10 mg 3 times daily, Lexapro 10 mg, Haldol 10 mg every 48 hours as needed for agitation as outpatient. Restarted buspirone and Lexapro
# DM- SSI only with accu checks
# Concern for vascular dementia
# Unstageable sacral pressure injury, stage I B/L heel pressure injury-turn patient every 2 hours and also continue with wound care
# Amputation of the left toes 1-3
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
# DVT prophylaxis-Eliquis
# Full code per discussion with sister
# Nutrition-Dobbhoff tube feeds. Increase rate to goal
Resident updated patient's sister today
D/W RN
Original Note:
Today's Communication/Plan
-
Transfuse for hg <7
Appreciate ortho for right femur fracture
HD
Other causes for hypercoagulable state pending per heme/onc
Assessment / Plan
Assessment / Plan
59 y/o patient had a prolonged hospitalization at [facility] January 11, 2025 to March 17, 2025 for intractable back pain, catheter associated infection, Klebsiella bacteremia. On long-term IV antibiotics cefepime and daptomycin with HD here
for acute change in mental status. Patient was obtunded on arrival and hypotensive. Baseline intermittently confused and bedbound since November per POA. Able to talk to sister on the phone at baseline
Imaging:
CT Head- No acute intracranial abnormality noted.There are mild/moderate periventricular and subcortical white matter hypodensities which are nonspecific, however likely sequelae of chronic small vessel ischemic disease.
EEG 04/11/2025--diffuse cortical dysfunction without focal abnormality. No seizures
Echo 04/11/2025--technically difficult study. Normal biventricular size and function without regional WMA. EF 60 to 65%. Aortic sclerosis
Brain MRI 04/13/25-- There are small foci of restricted diffusion involving the bilateral frontoparietal white matter, the left frontal white matter more anteriorly in the right basal ganglia consistent with acute/subacute infarctions. These may be
embolic in nature given the multivessel territory.
Mild atrophy with sequelae of moderate chronic small vessel ischemic disease.
Prominent blooming artifact along the left paramedian parietal lobe which is likely sequelae of prior hemorrhage/hematoma.
CT ab/pelvis with IV contrast 04/15/25 impression:
IMPRESSION:
1. Examination significantly limited as above.
2. Anasarca.
3. Splenomegaly.
4. Atrophic changes bilateral kidneys with extensive cystic change as above.
5. Proctitis, indeterminate etiology.
6. Diffuse wall thickening of the urinary bladder, question outlet obstruction or neurogenic bladder. Small focus of gas within the bladder which could be related to recent catheterization or infection.
7. Recent fracture greater trochanter right femur.
8. Osseous destructive process at the T8-T9 level which is incompletely imaged on this examination.
9. Abnormal lucent and sclerotic appearance of the bones which could be related to renal osteodystrophy.
Hip x-ray 04/17/25 impression: Findings suggesting subacute fracture of the right greater trochanter.
Plan:
#Right greater trochanteric femur fracture
--Noted on CT and x-ray
--Per sister he did have a fall at [facility] early March and complained of right hip pain - told he got an x-ray at [facility] -will request records
--Appreciate ortho
#Dobhoff placement/starting nutrition
--Placement good confirmed with x-ray
--Start tube feeds per dietary recommendations
--Monitor for re-feeding syndrome
# CVA
--MRI of the brain revealed multiple small foci in bilateral frontotemporal parietal white matter and left frontal white matter anteriorly in the right basal ganglia consistent with acute/subacute infarcts
--Neurology does not believe it is contributing to AMS and there are no treatment options at this point as already on anti-coagulation - work up for other causes of hypercoagulable state per heme/onc
--Appears to be embolic in nature
--Appreciate cardiology for ALENA to eval for endocarditis - cardiology will do ALENA once AAO. High risk of aspiration due to obtunded state.
# Acute metabolic encephalopathy
--Hypotension/polypharmacy/hypovolemia/CVA
--EEG without seizures or status
--Hold melatonin, Haldol, gabapentin, Lexapro ->On lexapro now that dobhoff is in. Cont to hold gabapentin and haldol for AMS
--Cefepime was discontinued and changed to Zosyn 04/12/2025 -> zosyn d/c on 04/16
--Patient is still not able to follow directions or answer questions
# History of VRE and Klebsiella bacteremia
--on IV Zosyn with HD -> d/c as records indicate completion of antibiotics at [facility] and unclear as to why they were started at [facility]. Cultures have been negative and afebrile.
--Infectious disease appreciated
# Pancytopenia
--Anemia likely secondary to chronic kidney disease
--BM biopsy and MM work up was done there - BM biopsy records obtained revealing no BM or genetic mutations
--Heme/onc appreciated for possible eval for TTP - no TTP as no schistocytes and normal LDH - ordered antibody panels for other causes of hypercoagulable states
--Transfuse for hg <7 - hemestool test pending considering drop after dobhoff placement - consent in chart
# Elevated troponin
--Possible ST depressions on EKG - reviewed by cards believe baseline trop in setting of ESRD no further recs
# Chronic CHF-NOS-on dialysis now
# ESRD on HD Monday
--Left anterior chest wall HD catheter
--Nephrology appreciated
# Paroxysmal atrial fibrillation
--metoprolol to be switched to IV. Patient is n.p.o. therefore Eliquis was switched to heparin drip -> d/c heparin, switch back to Eliquis with dobhoff in
# Anxiety and depression
--on buspirone 10 mg 3 times daily, Lexapro 10 mg, Haldol 10 mg every 48 hours as needed for agitation as outpatient.
--Currently p.o. medicines are on hold as patient is n.p.o. -> On buspirone and lexapro now with dobhoff
#Metastatic disease?
--Hospital records from [place] revealed concerns for metastatic disease after MRI of spine done. Some proctocolitis of bowels noted on imaging as well.
--CT ab/pelvis revealed no obvious metastatic disease
# Diarrhea
--c. diff (-)
# Hypertension-metoprolol
# Hyperlipidemia-restart statin
# Hypokalemia-replete
# Bedbound since November 2024 with intermittent confusion at baseline
# DM- SSI only with accu checks
# Concern for vascular dementia
# Unstageable sacral pressure injury, stage I B/L heel pressure injury-turn patient every 2 hours and also continue with wound care
# Amputation of the left toes 1-3
# Osseous destruction of T8-T9
# Splenomegaly
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
DVT prophylaxis-Heparin gtt
Full code
POJack's sister Geovanni. Spoke to Geovanni about hip fracture. She stated he had a fall in his first week at [place] complaining of right hip pain. She stated he got an x-ray but she wasn't sure of the results. I also obtained consent for blood if hg
drops <7.
Anticipated Discharge: > 48 hours
Subjective/Interval History
-
Date of Service: April 18, 2025
Obtunded non-responsive to verbal stimuli.
Objective Data
-
Labs:
Laboratory Results
04/17/25 04/18/25 04/18/25
20:14 04:30 14:00
WBC 4.4 L
Hgb 8.1 L 7.4 L Pending
Hct 24.4 L 23.5 L Pending
Plt Count 50 L
Sodium 142
Potassium 3.7
Chloride 108 H
Carbon Dioxide 30
BUN 18
Creatinine 2.8 H
Glucose 128 H
Calcium 9.0
Total Bilirubin 1.1
AST 17
ALT 12
Alkaline Phosphatase 135 H
Vital Signs:
Vital Signs
Temp Pulse Resp BP Pulse Ox
98.9 F 74 7 111/79 97
04/18/25 03:00 04/18/25 06:00 04/18/25 06:00 04/18/25 04:00 04/18/25 06:00
I&O
04/17/25 04/18/25 04/19/25
06:59 06:59 06:59
Intake Total 1142 / 1142 420 / 420
Output Total 0 / 0 0 / 0
Balance 1142 / 1142 420 / 420
Review of Systems
-
Unable to obtain full review of systems at this time due to: Dementia and Acuity
Physical Exam
-
General: Appears Chronically Ill
Respiratory: Clear to Auscultation
Cardiac: Regular Rhythm and S1/S2
GI: Soft, Nondistended and Normal Bowel Sounds
Musculoskeletal: No Cyanosis and No Edema
Skin: Warm and Dry
Neuro: AO x 3
Psych: Calm
[2025-04-18] MEDS: FLEXBUMIN 25% FOR HEMODIALYSIS 12.5 GRAMS IV ×2 (09:00→10:39)
[2025-04-18] MEDS: MANNITOL 25% 12.5 GRAMS IV ×2 (09:04→10:39)
--- NOTE | 2025-04-18 09:04 | W.PN.NEPH.HD ---
Assessment
-
Patient seen on dialysis
Catheter flows poor likely positional
Feeding tube in place and running
Patient poorly responsive
Systolic blood pressure 96 at even ultrafiltration
Next dialysis will be scheduled for Monday
Progress Note - Hemodialysis
-
Date of Service: April 18, 2025
Duration: 30 minutes and 3 hours
Potassium Bath: 4
Calcium Bath: 2.5
Opti-Dialyzer: 160
Ultrafiltration: Other (Even)
Blood Flow: 300
Dialysate Flow: 600
Heparin: none (platelet count 50)
EPO: 10,000
[2025-04-18] MEDS: RETACRIT 10000 UNITS IV (09:05)
--- NOTE | 2025-04-18 09:42 | W.PN.ONC2 ---
Today's Communication / Plan
-
follow up lupus anticoag and cardiolipin ab
daily CBC
Impression
Impression
Pancytopenia due to acute/chronic illness, splenomegaly could be contributing
peripheral smear without schistocytes reviewed by Dr. Bright 04/18/2025
VRE bacteremia
ESRD on HD
Vascular dementia
CVA
Atrial fibrillation
Plan
Plan
Assess lupus anticoagulant and antiphospholipid antibodies
Monitor CBC
Will follow
Subjective/Objective
Subjective
afebrile, no hypoxia or hypotension
Vital Signs:
Vital Signs
Temp Pulse Resp BP Pulse Ox
98.0 F 74 7 111/79 97
04/18/25 09:05 04/18/25 06:00 04/18/25 06:00 04/18/25 04:00 04/18/25 06:00
Lab Results:
Laboratory Data
WBC 4.4 10^3/uL (4.8-10.8) L 04/18/25 04:30
Hgb 7.4 g/dL (13.0-18.0) L 04/18/25 04:30
Plt Count 50 10^3/uL (130-400) L 04/18/25 04:30
APTT 102.3 Sec (23.4-35.0) H 04/17/25 03:49
eGFR 25.36 04/18/25 04:30
[2025-04-18] MEDS: LOPRESSOR TUBE (11:25)
[2025-04-18] MEDS: BUSPAR TUBE (11:25)
[2025-04-18 11:34] LABS: Glucose - Point of Care 101 mg/dl (70-99)
[2025-04-18] MEDS: SANTYL OINTMENT 1 APPLIC TOPICAL (12:30)
[2025-04-18] MEDS: DAKIN'S SOLUTION 0.125% 1/4 STRENGTH 1 ML TOPICAL (12:30)
[2025-04-18] MEDS: DESENEX/MITRAZOL/ZEASORB 1 APPLIC TOPICAL ×2 (12:30→20:19)
[2025-04-18] MEDS: VITAMIN B1 100 MG TUBE (12:31)
[2025-04-18] MEDS: LEXAPRO 20 MG TUBE (12:31)
[2025-04-18] MEDS: THERAGRAN 1 TABLET TUBE (12:31)
[2025-04-18] MEDS: NSS (PRESERVATIVE FREE) 10 ML IV (12:32)
[2025-04-18] MEDS: PROTONIX IV 40 MG IV (12:32)
[2025-04-18] MEDS: ELIQUIS 2.5 MG TUBE ×2 (12:32→20:19)
--- NOTE | 2025-04-18 13:35 | CM ---
Addendum entered by Abhishek Enamorado 04/18/25 13:46:
Per [facility] liaison, pt is a short term rehab patient been at [facility] since 03/17 and a plan was for transition to a LTC. Per liaison, in order for pt to return back to [facility], pt will need an auth from [employer] insurance.
Original Note:
CM following re: discharge planning.
Reviewed pt's chart, met with pt.
Per chart review, pt is minimally responsive, HD today, continue supportive care.
Pt is a LTC resident at [facility], on Medicaid 15 day bed hold, requires total care. Per [facility] liaison, pt will be accepted back when medically stable.
D/C plan: return back to [facility] for a LTC.
CM will follow with discharge plan updates as hospitalization progresses
--- NOTE | 2025-04-18 13:50 | W.PN.ID1 ---
Date of Service
Date of Service: April 18, 2025
Today's Communication
Sign off.
Assessment / Plan
Encephalopathy; ongoing
- ?TME ?med related (cefepime) ?CVA
Hx VRE / Klebsiella infection
- on dapto / cefepime, from nursing facility.
Unstageable sacral wound
Vascular dementia
P A-fib (on Eliquis)
ESRD�HD (MWF)
DM
PAD
CHF
Anxiety/depression
Recommendations:
01/27/25 Bcx: VRE (sensitive to amp, dapto, linezolid)
Klebsiella aerogenes (Sensitive to: t/sulfa, FQ, tobra, gent, pip/tazo, cefepime (<2), ceftaz (4))
Reviewed extensive records from [facility]. According to those records, the patient had VRE and Klebsiella bacteremia (as above) attributed to his dialysis cath, which was changed in mid January. Per his discharge summary, he completed a
course of antibiotics prior to being discharged. He arrived here to [facility] from [facility] on antibiotics (daptomycin / cefepime). Patient appears to have been restarted on antibiotics upon admission to [facility], but for unclear
reasons. Discharge med list from [facility] do not show that any antibiotics were to be continued.
Blood here cx's neg to date.
Antibiotics discontinued 04/16/2025.
Local care to sacral wound.
Patient remains afebrile.
No evidence of ongoing infection at present.
Will sign off and see again at your request
����������������������������������������������������������
Chief Complaint
-: Other (Change in mental status)
Subjective / Review of Systems
Review of Systems: No Fever
Vital Signs / Physical Exam
Vital Signs
Vital Signs
Temp Pulse Resp BP Pulse Ox
98.0 F 70 20 105/66 99
04/18/25 09:05 04/18/25 11:00 04/18/25 11:00 04/18/25 11:00 04/18/25 13:07
Physical Exam
Constitutional: Chronically Ill
Eyes: No Conjunctival Hemorrhage and Sclera Anicteric
Cardiovascular: Regular Rate and S1/S2
Pulmonary: Clear; Negative Wheezes, Rales or Rhonchi
Gastrointestinal: Soft, Non Tender, Non Distended and Normal Bowel Sounds
Extremities: Negative Edema
Wound: Other (Unstageable sacral wound; dressed.)
Neurological: Other (Responsive to touch. Awakens, but minimally verbal)
Lines: HD Cath (no erythema)
Objective Data
Lab Data
Lab Results
04/18/25 04:30
APTT 102.3 Sec (23.4-35.0) H 04/17/25 03:49
Lactic Acid Cancelled 04/10/25 14:15
Total Bilirubin 1.1 mg/dl (0.2-1.3) 04/18/25 04:30
AST 17 U/L (17-59) 04/18/25 04:30
ALT 12 U/L (0-50) 04/18/25 04:30
Alkaline Phosphatase 135 U/L (38-126) H 04/18/25 04:30
Most recent labs reviewed.
Micro Results:
04/10/25 12:30 Blood Culture - Final
Blood/Venous No Growth - Final Report
04/10/25 10:12 Blood Culture - Final
Blood/Venous No Growth - Final Report
04/13/25 14:55 C. difficile GDH Antigen & Toxins - Final
Feces/Stool Negative for toxigenic C.difficile
04/11/25 04:12 MRSA Screen - Final
Nose Staph aureus MRSA
Imaging:
04/09/2025 MRI brain without contrast: There are small foci of restricted diffusion involving the bilateral frontoparietal white matter, the left frontal white matter more anteriorly in the right basal ganglia consistent with acute/subacute
infarctions. These may be embolic in nature given the multivessel territory. Mild atrophy with sequelae of moderate chronic small vessel ischemic disease.
Prominent blooming artifact along the left paramedian parietal lobe which is likely sequelae of prior hemorrhage/hematoma.
--- NOTE | 2025-04-18 14:09 | CON.ORTHO ---
Consultation
-
Date/Time Consultation Performed: 04/18/2025 145 PM
Consultation - Orthopedics
History
HPI: 59-year-old male multiple medical comorbidities including end-stage renal disease, diabetes, congestive heart failure, concern for vascular dementia presented to the emergency department for altered mental status. Admitted to the hospitalist
service. During his workup/admission, he was found to have a minimally displaced right greater trochanteric femur fracture. Orthopedics is consulted for further evaluation and treatment. This afternoon patient is really not able to interact in
any meaningful way. History is obtained from chart review. Patient is reportedly been bedbound since November. Per nursing he is really been nonverbal and unable to interact in a meaningful way although does reportedly appear somewhat uncomfortable
with turning.
Allergies / Home Medications
Past medical history: End-stage renal disease on dialysis, paroxysmal A-fib on Eliquis, hypertension, hyperlipidemia, diabetes, peripheral arterial disease, congestive heart failure
Past surgical history: Toe amputations
Social history: Lives at facility
Family history: Not pertinent
Allergy/AdvReac Type Severity Reaction Status Date / Time
losartan Allergy Unknown Verified 04/10/25 22:15
oxycodone Allergy Unknown Verified 04/10/25 22:15
�Medication �Instructions �Recorded
acetaminophen 325 mg tablet 650 mg PO Q6HPRN PRN mild pain 04/10/25
(Tylenol)
apixaban 2.5 mg tablet (Eliquis) 2.5 mg PO BID Blood Clot 04/10/25
Prevention/Tx
bisacodyl 10 mg rectal suppository 10 mg FL DAILYPRN PRN if no bm 04/10/25
(Dulcolax (bisacodyl)) aftr mom
buspirone 10 mg tablet 10 mg PO TID Mental Health/Anxiety 04/10/25
cefepime 2 gram solution for 2 g IV MOWEFR Infection 04/10/25
injection
daptomycin 500 mg intravenous 470 mg IV MOWEFR Infection 04/10/25
solution
docusate sodium 100 mg capsule 100 mg PO DAILY Constipation 04/10/25
(Colace)
escitalopram oxalate 20 mg tablet 20 mg PO DAILY Mental 04/10/25
(Lexapro) Health/Anxiety
gabapentin 100 mg capsule 100 mg PO TID Pain 04/10/25
haloperidol 10 mg tablet 10 mg PO [id number] PRN before 04/10/25
dialysis/AGITATION/ANXIETY
insulin lispro 100 unit/mL 1 sliding scale dose SC AC Diabetes 04/10/25
subcutaneous pen
magnesium oxide 168 mg PO DAILY Electrolyte 04/10/25
Repletion
melatonin 3 mg tablet 6 mg PO HS Sleep 04/10/25
metoprolol tartrate 50 mg tablet 50 mg PO BID Heart 04/10/25
Disease/Condition
ondansetron HCl 4 mg tablet 4 mg PO Q8HPRN PRN nausea 04/10/25
pantoprazole 40 mg tablet,delayed 40 mg PO DAILY Gastrointestinal 04/10/25
release (Protonix) Issue
potassium chloride 20 mEq 40 meq PO BID Electrolyte Repletion 04/10/25
tablet,extended release
rosuvastatin 10 mg tablet (Crestor) 10 mg PO DAILY High Cholesterol 04/10/25
sorbitol 70 % solution 30 ml PO DAILYPRN PRN constipation 04/10/25
therapeutic multivitamin 1 tab PO DAILY Supplement 04/10/25
thiamine HCl (vitamin B1) 100 mg 100 mg PO DAILY Supplement 04/10/25
tablet
Vital Signs / Lab Results
Temp Pulse Resp BP Pulse Ox
98.0 F 70 20 105/66 99
04/18/25 09:05 04/18/25 11:00 04/18/25 11:00 04/18/25 11:00 04/18/25 13:07
04/18/25 04:30
10 point review systems unable to be obtained secondary to mental status
General: Obtunded, not able to interact in meaningful way, does not react to stimuli for me
Musculoskeletal right lower extremity
Skin intact, no erythema or ecchymotic staining over the lateral trochanteric flare
There is no visible grimace with forceful palpation of the lateral trochanteric flare or groin
No grimace or visible pain with logroll
Leg lengths are equal
Multiple amputations of digits right foot
Diagnostic studies
X-rays and CT scan of right hip were reviewed by myself. Radiology report reviewed. There is a minimally displaced tip of greater trochanter fracture. There is no evident involvement of intertrochanteric femur region
Assessment / Plan
59-year-old male multiple medical comorbidities obtunded/with altered mental status with incidental finding of of minimally displaced right greater trochanteric femur fracture. I would not recommend any orthopedic intervention. Patient can bear
weight to his tolerance. If he is able to get out of bed would recommend a walker for ambulatory assistance. Otherwise again there is indicated orthopedic intervention that I would recommend. Please reach out any questions or concerns. No need
for outpatient orthopedic follow-up given patient's clinical picture.
[2025-04-18 15:44] LABS: Hematocrit 24.9 % (39.0-52.0); Hemoglobin 7.7 g/dL (13.0-18.0)
[2025-04-18] MEDS: CRESTOR 10 MG TUBE (17:14)
[2025-04-18] MEDS: BUSPAR 10 MG TUBE ×2 (17:14→22:16)
[2025-04-18 17:22] LABS: Glucose - Point of Care 114 mg/dl (70-99)
[2025-04-18] MEDS: LOPRESSOR 50 MG TUBE (20:19)
[2025-04-18] MEDS: TYLENOL 1000 MG TUBE (22:16)
[2025-04-18 23:18] LABS: Glucose - Point of Care 143 mg/dl (70-99)
[2025-04-19] VITALS (12 sets, daily range): BP systolic 100–146; BP diastolic 65–85
[2025-04-19 05:10] LABS: Hematocrit 24.8 % (39.0-52.0); Hemoglobin 8.0 g/dL (13.0-18.0); Mean Corp Hgb Conc. 32.3 g/dL (33.0-37.0); Mean Corpuscular Volume 90.8 fL (80.0-94.0); Platelet Count 44 10^3/uL (130-400); Red Cell Dist. Width 18.5 % (11.5-14.5)
[2025-04-19 05:31] LABS: ALT (SGPT) 12 U/L (0-50); AST (SGOT) 17 U/L (17-59); Albumin 2.7 g/dl (3.5-5.0); Alkaline Phosphatase 146 U/L (38-126); Blood Urea Nitrogen 17 mg/dl (9-20); Calcium 9.5 mg/dl (8.4-10.2); Carbon Dioxide 29 mmol/L (22-30); Chloride 105 mmol/L (98-107); Glucose 123 mg/dl (70-99); Magnesium 1.9 mg/dl (1.6-2.3); Potassium 3.6 mmol/L (3.5-5.1); Sodium 137 mmol/L (135-145); Total Protein 5.4 g/dl (6.3-8.2); eGFR 30.51
[2025-04-19 05:58] LABS: Glucose - Point of Care 136 mg/dl (70-99)
[2025-04-19] MEDS: NOVOLOG FLEXPEN-MODERATE RESISTANCE SC ×2 (06:15→17:36)
[2025-04-19] MEDS: VITAMIN B1 100 MG TUBE (08:38)
[2025-04-19] MEDS: PROTONIX IV 40 MG IV (08:38)
[2025-04-19] MEDS: SANTYL OINTMENT 1 APPLIC TOPICAL (08:38)
[2025-04-19] MEDS: BUSPAR 10 MG TUBE ×3 (08:38→22:14)
[2025-04-19] MEDS: NSS (PRESERVATIVE FREE) 10 ML IV (08:38)
[2025-04-19] MEDS: DAKIN'S SOLUTION 0.125% 1/4 STRENGTH 1 ML TOPICAL (08:38)
[2025-04-19] MEDS: TYLENOL 1000 MG TUBE ×3 (08:39→22:14)
[2025-04-19] MEDS: THERAGRAN 1 TABLET TUBE (08:39)
[2025-04-19] MEDS: LEXAPRO 20 MG TUBE (08:39)
[2025-04-19] MEDS: ELIQUIS 2.5 MG TUBE ×2 (08:39→20:15)
[2025-04-19] MEDS: LOPRESSOR 50 MG TUBE ×2 (08:39→20:15)
[2025-04-19] MEDS: DESENEX/MITRAZOL/ZEASORB 1 APPLIC TOPICAL ×2 (08:43→20:16)
--- NOTE | 2025-04-19 08:55 | W.PN.NEPH.PH ---
Today's Communication / Plan
-
Next HD will be on Monday
Assessment/Plan
-
59M [facility] resident ESRD MWF [facility] Eliquis HTN HLD DM PAD toe amputations CHF Anxiety Depression suspected underlying vascular dementia recent prolonged hospitalization [facility] January 11 to March 17 for intractable back pain catheter
associated infection VR and Klebsiella bacteremia (following which he was discharged to [facility] with emt intermediate IV abx Cefipime and Daptomycin to be given with HD- sent by SNF for evaluation AMS, normally AOx3 at baseline, essentially obtunded on
arrival with associate severe hypotension systolic 70s. Improved with IVF bolus,
Impression
ESRD MWF [facility]
Sepsis
A-fib
Dementia/AMS
Plan.
Next dialysis Monday
Blood pressure controlled on metoprolol
We will maintain JOSHUA and possibly iron on HD for persistent anemia
Off antibiotics
-
-
Date of Service: April 19, 2025
CC / HPI / ROS
-
Chief Complaint:
AMS
History of Present Illness:
ESRD presents with altered mental status
ESRD Monday for
Anemia person
BP low but stable on
Review of Systems:
The patient not responding does open his eyes but does not follow commands and is in no distress
Catheter
No fevers
Labs
-
Labs:
WBC 4.7 10^3/uL (4.8-10.8) L 04/19/25 04:54
RBC 2.73 10^6/uL (4.70-6.10) L 04/19/25 04:54
Hgb 8.0 g/dL (13.0-18.0) L 04/19/25 04:54
Hct 24.8 % (39.0-52.0) L 04/19/25 04:54
Plt Count 44 10^3/uL (130-400) L 04/19/25 04:54
Sodium 137 mmol/L (135-145) 04/19/25 04:54
Potassium 3.6 mmol/L (3.5-5.1) 04/19/25 04:54
Chloride 105 mmol/L (98-107) 04/19/25 04:54
Carbon Dioxide 29 mmol/L (22-30) 04/19/25 04:54
BUN 17 mg/dl (9-20) 04/19/25 04:54
Creatinine 2.4 mg/dL (0.7-1.3) H 04/19/25 04:54
eGFR 30.51 04/19/25 04:54
Glucose 123 mg/dl (70-99) H 04/19/25 04:54
Calcium 9.5 mg/dl (8.4-10.2) 04/19/25 04:54
Phosphorus 3.0 mg/dl (2.5-4.5) 04/19/25 04:54
Albumin 2.7 g/dl (3.5-5.0) L 04/19/25 04:54
Physical Exam
-
Vital Signs:
Vital Signs
Temp Pulse Resp BP Pulse Ox
97.0 F 63 18 126/74 99
04/19/25 03:35 04/19/25 08:39 04/19/25 06:02 04/19/25 08:39 04/19/25 04:00
Cardiovascular:: Regular rate and rhythm
Respiratory:: Bilateral: Coarse
Lung Excursion:: Normal
Abdomen:: Nontender and Soft
Bowel Sounds:: Normal
Extremity Edema:: None: Bilateral:
Other Findings::
Feeding tube
Only response to pain
[2025-04-19] MEDS: NOVOLOG FLEXPEN-MODERATE RESISTANCE 1 UNITS SC (11:46)
[2025-04-19 11:57] LABS: Glucose - Point of Care 194 mg/dl (70-99)
--- NOTE | 2025-04-19 13:49 | W.PN.HOSP.TC ---
Addendum entered and electronically signed by Susan Golden MD 04/19/25 14:35:
Attending�addendum:
I�saw�and�evaluated�the�patient.�I�reviewed�the�resident�s�note�and�agree�with�findings�and�plan�as�documented�in�the�resident�s�note.��
Patient remains critically ill in the ICU, nonverbal and cannot provide interval history.
Physical�exam:
GENERAL : Confused
HEENT: Dobbhoff.
CHEST: Chest wall is nontender.
HEART: Regular rate and rhythm without murmurs.
LUNGS: Bilateral Rales
ABDOMEN: Soft, positive bowel sounds, nontender, no organomegaly.
RECTAL: Deferred.
SKIN: No rash, no excessive bruising, petechiae, or purpura.
NEUROLOGIC: Confused
�
Assessment/plan:
Acute/subacute CVA.
Cardiology consult for ALENA which is pending.
Acute metabolic encephalopathy.
Multifactorial
Patient still confused
Right greater trochanteric fracture.
Nondisplaced
No surgical intervention as per Ortho
History of VRE and Klebsiella bacteremia.
Cefepime was discontinued and changed to Zosyn 04/12/2025 -> zosyn d/c on 04/16
Infectious disease signed off.
Pancytopenia.
End-stage renal disease on dialysis.
For dialysis tomorrow
Paroxysmal A-fib
�
Total�time�spent�on�today�s�encounter�was�74�minutes�which�included�time�spent�in�counseling�the�patient/family�regarding�diagnosis�and�treatment�plan�as�listed�above,�goals�of�care,�and�symptom�management.�Case�was�discussed�with�nursing�staff,�spec
ialists,�and�care�coordinators/case�management.�All�labs�and�imaging�personally�reviewed�by�me.�Remainder�the�time�spent�in�detailed�review�of�previous�records,�lab�data,�imaging,�and�other�medical�provider�documentation.
Original Note:
Today's Communication/Plan
-
HD tomorrow
No significant changes in plan today
Goals of care discussion ongoing
Assessment / Plan
Assessment / Plan
59 y/o patient had a prolonged hospitalization at [facility] January 11, 2025 to March 17, 2025 for intractable back pain, catheter associated infection, Klebsiella bacteremia. On long-term IV antibiotics cefepime and daptomycin with HD here
for acute change in mental status. Patient was obtunded on arrival and hypotensive. Baseline intermittently confused and bedbound since November per POA. Able to talk to sister on the phone at baseline
Imaging:
CT Head- No acute intracranial abnormality noted.There are mild/moderate periventricular and subcortical white matter hypodensities which are nonspecific, however likely sequelae of chronic small vessel ischemic disease.
EEG 04/11/2025--diffuse cortical dysfunction without focal abnormality. No seizures
Echo 04/11/2025--technically difficult study. Normal biventricular size and function without regional WMA. EF 60 to 65%. Aortic sclerosis
Brain MRI 04/13/25-- There are small foci of restricted diffusion involving the bilateral frontoparietal white matter, the left frontal white matter more anteriorly in the right basal ganglia consistent with acute/subacute infarctions. These may be
embolic in nature given the multivessel territory.
Mild atrophy with sequelae of moderate chronic small vessel ischemic disease.
Prominent blooming artifact along the left paramedian parietal lobe which is likely sequelae of prior hemorrhage/hematoma.
CT ab/pelvis with IV contrast 04/15/25 impression:
IMPRESSION:
1. Examination significantly limited as above.
2. Anasarca.
3. Splenomegaly.
4. Atrophic changes bilateral kidneys with extensive cystic change as above.
5. Proctitis, indeterminate etiology.
6. Diffuse wall thickening of the urinary bladder, question outlet obstruction or neurogenic bladder. Small focus of gas within the bladder which could be related to recent catheterization or infection.
7. Recent fracture greater trochanter right femur.
8. Osseous destructive process at the T8-T9 level which is incompletely imaged on this examination.
9. Abnormal lucent and sclerotic appearance of the bones which could be related to renal osteodystrophy.
Hip x-ray 04/17/25 impression: Findings suggesting subacute fracture of the right greater trochanter.
Plan:
#Right greater trochanteric femur fracture
--Noted on CT and x-ray
--Per sister he did have a fall at [facility] early March and complained of right hip pain - told he got an x-ray at [facility] -will request records
--No surgical intervention required per ortho
# CVA
--MRI of the brain revealed multiple small foci in bilateral frontotemporal parietal white matter and left frontal white matter anteriorly in the right basal ganglia consistent with acute/subacute infarcts
--Neurology does not believe it is contributing to AMS and there are no treatment options at this point as already on anti-coagulation - work up for other causes of hypercoagulable state per heme/onc
--Appears to be embolic in nature
--Appreciate cardiology for ALENA to eval for endocarditis - cardiology will do ALENA once AAO. High risk of aspiration due to obtunded state.
# Acute metabolic encephalopathy
--Hypotension/polypharmacy/hypovolemia/CVA
--EEG without seizures or status
--Hold melatonin, Haldol, gabapentin, Lexapro ->On lexapro now that dobhoff is in. Cont to hold gabapentin and haldol for AMS
--Cefepime was discontinued and changed to Zosyn 04/12/2025 -> zosyn d/c on 04/16
--Patient is still not able to follow directions or answer questions
--Dobhoff placed on 04/18/25 for feeds - monitor for re-feeding syndrome
# History of VRE and Klebsiella bacteremia
--on IV Zosyn with HD -> d/c as records indicate completion of antibiotics at [place] and unclear as to why they were started at [facility]. Cultures have been negative and afebrile.
--Infectious disease appreciated
# Pancytopenia
--Anemia likely secondary to chronic kidney disease
--BM biopsy and MM work up was done there - BM biopsy records obtained revealing no BM or genetic mutations
--Heme/onc appreciated for possible eval for TTP - no TTP as no schistocytes and normal LDH - antibody panels for other causes of hypercoagulable states pending
--Transfuse for hg <7 - hemestool test pending considering drop after dobhoff placement - consent in chart
# Elevated troponin
--Possible ST depressions on EKG - reviewed by cards believe baseline trop in setting of ESRD no further recs
# Chronic CHF-NOS-on dialysis now
# ESRD on HD Monday
--Left anterior chest wall HD catheter
--Nephrology appreciated
# Paroxysmal atrial fibrillation
--metoprolol to be switched to IV. Patient is n.p.o. therefore Eliquis was switched to heparin drip -> d/c heparin, switch back to Eliquis with dobhoff in
# Anxiety and depression
--on buspirone 10 mg 3 times daily, Lexapro 10 mg, Haldol 10 mg every 48 hours as needed for agitation as outpatient.
--Currently p.o. medicines are on hold as patient is n.p.o. -> On buspirone and lexapro now with dobhoff
#Metastatic disease?
--Hospital records from [facility] revealed concerns for metastatic disease after MRI of spine done. Some proctocolitis of bowels noted on imaging as well.
--CT ab/pelvis revealed no obvious metastatic disease
# Diarrhea
--c. diff (-)
# Hypertension-metoprolol
# Hyperlipidemia-restart statin
# Hypokalemia-replete
# Bedbound since November 2024 with intermittent confusion at baseline
# DM- SSI only with accu checks
# Concern for vascular dementia
# Unstageable sacral pressure injury, stage I B/L heel pressure injury-turn patient every 2 hours and also continue with wound care - Tylenol 1,000mg TID for pain
# Amputation of the left toes 1-3
# Osseous destruction of T8-T9
# Splenomegaly
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
DVT prophylaxis-Heparin gtt
Full code
LEA's sister Geovanni. Dobhoff can only stay for 5-7 days. Need to discuss goals of care.
Anticipated Discharge: > 48 hours
Subjective/Interval History
-
Date of Service: April 19, 2025
Obtunded and unresponsive to verbal stimuli. However less grimacing. Appears to be in less pain.
Objective Data
-
Labs:
Laboratory Results
04/19/25
04:54
WBC 4.7 L
Hgb 8.0 L
Hct 24.8 L
Plt Count 44 L
Sodium 137
Potassium 3.6
Chloride 105
Carbon Dioxide 29
BUN 17
Creatinine 2.4 H
Glucose 123 H
Calcium 9.5
Total Bilirubin 1.0
AST 17
ALT 12
Alkaline Phosphatase 146 H
Vital Signs:
Vital Signs
Temp Pulse Resp BP Pulse Ox
98.0 F 59 10 109/70 100
04/19/25 07:11 04/19/25 12:00 04/19/25 12:00 04/19/25 12:00 04/19/25 12:00
I&O
04/18/25 04/19/25 04/20/25
06:59 06:59 06:59
Intake Total 420 / 420 710 / 710
Output Total 0 / 0
Balance 420 / 420 710 / 710
Review of Systems
-
Unable to obtain full review of systems at this time due to: Dementia and Acuity
Physical Exam
-
General: Appears Chronically Ill
Respiratory: Clear to Auscultation
Cardiac: Regular Rhythm and S1/S2
GI: Soft, Nondistended and Normal Bowel Sounds
Musculoskeletal: No Cyanosis, No Edema and Other (Missing left toes )
Skin: Warm and Dry
[2025-04-19] MEDS: CRESTOR 10 MG TUBE (16:57)
[2025-04-19 17:19] LABS: Glucose - Point of Care 135 mg/dl (70-99)
[2025-04-20] VITALS (15 sets, daily range): BP systolic 84–112; BP diastolic 55–77
[2025-04-20 00:08] LABS: Glucose - Point of Care 146 mg/dl (70-99)
[2025-04-20] MEDS: NOVOLOG FLEXPEN-MODERATE RESISTANCE SC ×2 (00:10→05:48)
--- NOTE | 2025-04-20 04:30 | PTCARENOTE ---
Rectal temp 96.8. Several warm blankets applied and thermostat temp raised.
[2025-04-20 05:02] LABS: Hematocrit 26.9 % (39.0-52.0); Hemoglobin 8.8 g/dL (13.0-18.0); Mean Corp Hgb Conc. 32.7 g/dL (33.0-37.0); Mean Corpuscular Volume 87.9 fL (80.0-94.0); Platelet Count 59 10^3/uL (130-400); Red Cell Dist. Width 17.8 % (11.5-14.5)
[2025-04-20 05:05] LABS: ALT (SGPT) 13 U/L (0-50); AST (SGOT) 16 U/L (17-59); Albumin 2.9 g/dl (3.5-5.0); Alkaline Phosphatase 167 U/L (38-126); Blood Urea Nitrogen 25 mg/dl (9-20); Calcium 9.8 mg/dl (8.4-10.2); Carbon Dioxide 25 mmol/L (22-30); Chloride 102 mmol/L (98-107); Glucose 167 mg/dl (70-99); Magnesium 1.7 mg/dl (1.6-2.3); Potassium 3.2 mmol/L (3.5-5.1); Sodium 134 mmol/L (135-145); Total Protein 5.5 g/dl (6.3-8.2); eGFR 23.34
[2025-04-20 05:46] LABS: Glucose - Point of Care 144 mg/dl (70-99)
[2025-04-20] MEDS: KCL ELIXIR 40 MEQ TUBE (07:05)
[2025-04-20] MEDS: LEXAPRO 20 MG TUBE (08:54)
[2025-04-20] MEDS: SANTYL OINTMENT 1 APPLIC TOPICAL (08:54)
[2025-04-20] MEDS: VITAMIN B1 100 MG TUBE (08:54)
[2025-04-20] MEDS: TYLENOL 1000 MG TUBE ×3 (08:55→23:21)
[2025-04-20] MEDS: THERAGRAN 1 TABLET TUBE (08:55)
[2025-04-20] MEDS: ELIQUIS 2.5 MG TUBE ×2 (08:55→20:42)
[2025-04-20] MEDS: PROTONIX IV 40 MG IV (08:55)
[2025-04-20] MEDS: BUSPAR 10 MG TUBE ×3 (08:55→20:42)
[2025-04-20] MEDS: DESENEX/MITRAZOL/ZEASORB 1 APPLIC TOPICAL ×2 (08:56→20:42)
[2025-04-20] MEDS: DAKIN'S SOLUTION 0.125% 1/4 STRENGTH 1 ML TOPICAL (08:56)
[2025-04-20] MEDS: NSS (PRESERVATIVE FREE) 10 ML IV (08:59)
[2025-04-20] MEDS: LOPRESSOR TUBE ×2 (08:59→20:45)
--- NOTE | 2025-04-20 09:46 | W.PN.HOSP.TC ---
Addendum entered and electronically signed by Pedro Contreras MD 04/20/25 15:32:
Seen and examined the patient agree with plan put forth by resident
Still lethargic, does not respond to verbal stimulus. Opens eyes sometimes but not interactive
Goals of care discussion ongoing with the patient's sister who wants to talk to the siblings prior to making a decision
Continue with tube feeds and current medicines and await family decision
Original Note:
Today's Communication/Plan
-
Hemodialysis Monday
Antibody labs pending for heme-onc
Replete K and phos
Continue tube feeds
Assessment / Plan
Assessment / Plan
59 y/o patient had a prolonged hospitalization at [facility] January 11, 2025 to March 17, 2025 for intractable back pain, catheter associated infection, Klebsiella bacteremia. On long-term IV antibiotics cefepime and daptomycin with HD here
for acute change in mental status. Patient was obtunded on arrival and hypotensive. Baseline intermittently confused and bedbound since November per POA. Able to talk to sister on the phone at baseline
Imaging:
CT Head- No acute intracranial abnormality noted.There are mild/moderate periventricular and subcortical white matter hypodensities which are nonspecific, however likely sequelae of chronic small vessel ischemic disease.
EEG 04/11/2025--diffuse cortical dysfunction without focal abnormality. No seizures
Echo 04/11/2025--technically difficult study. Normal biventricular size and function without regional WMA. EF 60 to 65%. Aortic sclerosis
Brain MRI 04/13/25-- There are small foci of restricted diffusion involving the bilateral frontoparietal white matter, the left frontal white matter more anteriorly in the right basal ganglia consistent with acute/subacute infarctions. These may be
embolic in nature given the multivessel territory.
Mild atrophy with sequelae of moderate chronic small vessel ischemic disease.
Prominent blooming artifact along the left paramedian parietal lobe which is likely sequelae of prior hemorrhage/hematoma.
CT ab/pelvis with IV contrast 04/15/25 impression:
IMPRESSION:
1. Examination significantly limited as above.
2. Anasarca.
3. Splenomegaly.
4. Atrophic changes bilateral kidneys with extensive cystic change as above.
5. Proctitis, indeterminate etiology.
6. Diffuse wall thickening of the urinary bladder, question outlet obstruction or neurogenic bladder. Small focus of gas within the bladder which could be related to recent catheterization or infection.
7. Recent fracture greater trochanter right femur.
8. Osseous destructive process at the T8-T9 level which is incompletely imaged on this examination.
9. Abnormal lucent and sclerotic appearance of the bones which could be related to renal osteodystrophy.
Hip x-ray 04/17/25 impression: Findings suggesting subacute fracture of the right greater trochanter.
Plan:
#Right greater trochanteric femur fracture
--Noted on CT and x-ray
--Per sister he did have a fall at [facility] early March and complained of right hip pain - told he got an x-ray at [facility] -will request records
--No surgical intervention required per ortho
# CVA
--MRI of the brain revealed multiple small foci in bilateral frontotemporal parietal white matter and left frontal white matter anteriorly in the right basal ganglia consistent with acute/subacute infarcts
--Neurology does not believe it is contributing to AMS and there are no treatment options at this point as already on anti-coagulation - work up for other causes of hypercoagulable state per heme/onc
--Appears to be embolic in nature
--Appreciate cardiology for ALENA to eval for endocarditis - cardiology will do ALENA once AAO. High risk of aspiration due to obtunded state.
# Acute metabolic encephalopathy
--Hypotension/polypharmacy/hypovolemia/CVA
--EEG without seizures or status
--Hold melatonin, Haldol, gabapentin, Lexapro ->On lexapro now that dobhoff is in. Cont to hold gabapentin and haldol for AMS
--Cefepime was discontinued and changed to Zosyn 04/12/2025 -> zosyn d/c on 04/16
--Patient is still not able to follow directions or answer questions
--Dobhoff placed on 04/18/25 for feeds - monitor for re-feeding syndrome
# History of VRE and Klebsiella bacteremia
--on IV Zosyn with HD -> d/c as records indicate completion of antibiotics at [place] and unclear as to why they were started at [facility]. Cultures have been negative and afebrile.
--Infectious disease appreciated
# Pancytopenia
--Anemia likely secondary to chronic kidney disease
--BM biopsy and MM work up was done there - BM biopsy records obtained revealing no BM or genetic mutations
--Heme/onc appreciated for possible eval for TTP - no TTP as no schistocytes and normal LDH - antibody panels for other causes of hypercoagulable states pending
--Transfuse for hg <7 - hemestool test pending considering drop after dobhoff placement - consent in chart
# Elevated troponin
--Possible ST depressions on EKG - reviewed by cards believe baseline trop in setting of ESRD no further recs
# Chronic CHF-NOS-on dialysis now
# ESRD on HD Monday
--Left anterior chest wall HD catheter
--Nephrology appreciated
# Paroxysmal atrial fibrillation
--metoprolol to be switched to IV. Patient is n.p.o. therefore Eliquis was switched to heparin drip -> d/c heparin, switch back to Eliquis with dobhoff in
# Anxiety and depression
--on buspirone 10 mg 3 times daily, Lexapro 10 mg, Haldol 10 mg every 48 hours as needed for agitation as outpatient.
--Currently p.o. medicines are on hold as patient is n.p.o. -> On buspirone and lexapro now with dobhoff
#Metastatic disease?
--Hospital records from [place] revealed concerns for metastatic disease after MRI of spine done. Some proctocolitis of bowels noted on imaging as well.
--CT ab/pelvis revealed no obvious metastatic disease
# Diarrhea
--c. diff (-)
# Hypertension-metoprolol
# Hyperlipidemia-restart statin
# Hypokalemia-replete
# Hypophosphatemia - replete
# Bedbound since November 2024 with intermittent confusion at baseline
# DM- SSI only with accu checks
# Concern for vascular dementia
# Unstageable sacral pressure injury, stage I B/L heel pressure injury-turn patient every 2 hours and also continue with wound care - Tylenol 1,000mg TID for pain
# Amputation of the left toes 1-3
# Osseous destruction of T8-T9
# Splenomegaly
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
DVT prophylaxis-Heparin gtt
Full code
LEA's sister Geovanni. Dobhoff can only stay for 5-7 days. Sister aware and plans to continue conversation with sisters and daughters.
Anticipated Discharge: > 48 hours
Subjective/Interval History
-
Date of Service: April 20, 2025
Remains attended. Opens eyes to verbal stimuli however not following commands. Appears in less distress.
Objective Data
-
Labs:
Laboratory Results
04/20/25
04:29
WBC 3.3 L
Hgb 8.8 L
Hct 26.9 L
Plt Count 59 L D
Sodium 134 L
Potassium 3.2 L
Chloride 102
Carbon Dioxide 25
BUN 25 H
Creatinine 3.0 H
Glucose 167 H
Calcium 9.8
Total Bilirubin 1.1
AST 16 L
ALT 13
Alkaline Phosphatase 167 H
Vital Signs:
Vital Signs
Temp Pulse Resp BP Pulse Ox
96.8 F L 73 26 89/60 100
04/20/25 04:15 04/20/25 06:16 04/20/25 06:16 04/20/25 08:59 04/20/25 06:16
I&O
04/19/25 04/20/25 04/21/25
06:59 06:59 06:59
Intake Total 710 / 710 1100 / 1100
Output Total 0 / 0
Balance 710 / 710 1100 / 1100
Review of Systems
-
Unable to obtain full review of systems at this time due to: Dementia and Acuity
Physical Exam
-
General: Comfortable and Appears Chronically Ill
Respiratory: Clear to Auscultation
Cardiac: Regular Rhythm and S1/S2
GI: Soft, Nondistended and Normal Bowel Sounds
Musculoskeletal: No Cyanosis and No Edema
Psych: Calm
--- NOTE | 2025-04-20 10:52 | W.PN.NEPH.PH ---
Today's Communication / Plan
-
Dialysis tomorrow
Assessment/Plan
-
59M [facility] resident ESRD MWF [facility] HTN HLD DM PAD toe amputations CHF Anxiety Depression suspected underlying vascular dementia recent prolonged hospitalization [facility] January 11 to March 17 for intractable back pain catheter
associated infection VR and Klebsiella bacteremia (following which he was discharged to [facility] with oysterman IV abx Cefipime and Daptomycin to be given with HD- sent by SNF for evaluation AMS, normally AOx3 at baseline, essentially obtunded on
arrival with associate severe hypotension systolic 70s. Improved with IVF bolus,
Impression
ESRD MWF [facility]
Sepsis
A-fib
Dementia/AMS
History of Klebsiella pneumonia due to catheter in December [address] [facility]
Plan.
Next dialysis Monday,orders provided
Blood pressure controlled on metoprolol
We will maintain JOSHUA and possibly iron on HD for persistent anemia
Okay to replete potassium
Off antibiotics
-
-
Date of Service: April 20, 2025
CC / HPI / ROS
-
Chief Complaint:
AMS
History of Present Illness:
ESRD presents with altered mental status
ESRD Monday
Anemia persist
BP low on
Review of Systems:
The patient not responding does open his eyes but does not follow commands and is in no distress
Catheter
No fevers
Labs
-
Labs:
WBC 3.3 10^3/uL (4.8-10.8) L 04/20/25 04:29
RBC 3.06 10^6/uL (4.70-6.10) L 04/20/25 04:29
Hgb 8.8 g/dL (13.0-18.0) L 04/20/25 04:29
Hct 26.9 % (39.0-52.0) L 04/20/25 04:29
Plt Count 59 10^3/uL (130-400) L D 04/20/25 04:29
Sodium 134 mmol/L (135-145) L 04/20/25 04:29
Potassium 3.2 mmol/L (3.5-5.1) L 04/20/25 04:29
Chloride 102 mmol/L (98-107) 04/20/25 04:29
Carbon Dioxide 25 mmol/L (22-30) 04/20/25 04:29
BUN 25 mg/dl (9-20) H 04/20/25 04:29
Creatinine 3.0 mg/dL (0.7-1.3) H 04/20/25 04:29
eGFR 23.34 04/20/25 04:29
Glucose 167 mg/dl (70-99) H 04/20/25 04:29
Calcium 9.8 mg/dl (8.4-10.2) 04/20/25 04:29
Phosphorus 1.5 mg/dl (2.5-4.5) L 04/20/25 04:29
Albumin 2.9 g/dl (3.5-5.0) L 04/20/25 04:29
Physical Exam
-
Vital Signs:
Vital Signs
Temp Pulse Resp BP Pulse Ox
96.8 F L 73 26 89/60 100
04/20/25 04:15 04/20/25 06:16 04/20/25 06:16 04/20/25 08:59 04/20/25 06:16
Cardiovascular:: Regular rate and rhythm
Respiratory:: Bilateral: Coarse
Lung Excursion:: Normal
Abdomen:: Nontender and Soft
Bowel Sounds:: Normal
Extremity Edema:: None: Bilateral:
Other Findings::
Feeding tube
Only response to pain
Dialysis catheter
[2025-04-20] MEDS: NEUTRA-PHOS POWDER PACKET 250 MG PO ×2 (12:00→20:44)
[2025-04-20 13:42] LABS: Glucose - Point of Care 195 mg/dl (70-99)
[2025-04-20] MEDS: NOVOLOG FLEXPEN-MODERATE RESISTANCE 1 UNITS SC ×2 (13:45→23:22)
[2025-04-20 18:02] LABS: Glucose - Point of Care 294 mg/dl (70-99)
[2025-04-20] MEDS: CRESTOR 10 MG TUBE (18:48)
[2025-04-20] MEDS: NOVOLOG FLEXPEN-MODERATE RESISTANCE 5 UNITS SC (18:49)
--- NOTE | 2025-04-20 22:18 | PTCARENOTE ---
Caring for pt overnight. Remains nonverbal, does not follow commands. pt does open eyes but it is random. Responds to painful stimuli. SR, remains RA, brief apnea & tachypnea episodes at times. DObhoff in place, TF running @ goal, no issues. Meds
through tube. Incontinent of diarrhea, heme NEG. Q2T, wedge pillow, heels elevated by 2 pillows and foam protection. Mouth care done. CHG done. NIH. BP running soft but stable. Wound care completed. No other issues at this time. Will monitor.
[2025-04-20 23:34] LABS: Glucose - Point of Care 172 mg/dl (70-99)
[2025-04-21] VITALS (40 sets, daily range): BP systolic 67–132; BP diastolic 46–104
[2025-04-21 05:39] LABS: Glucose - Point of Care 224 mg/dl (70-99)
[2025-04-21] MEDS: NOVOLOG FLEXPEN-MODERATE RESISTANCE 3 UNITS SC (06:04)
[2025-04-21] MEDS: MANNITOL 25% 12.5 GRAMS IV ×2 (08:04→09:20)
[2025-04-21] MEDS: FLEXBUMIN 25% FOR HEMODIALYSIS 12.5 GRAMS IV ×2 (08:04→09:15)
[2025-04-21] MEDS: RETACRIT 10000 UNITS IV (08:13)
--- NOTE | 2025-04-21 08:37 | W.PN.NEPH.HD ---
Assessment
-
Patient seen on dialysis
Systolic blood pressure around 100 at UF of 1 kg
Progress Note - Hemodialysis
-
Date of Service: April 21, 2025
Duration: 3 hours
Potassium Bath: 4
Calcium Bath: 2.5
Opti-Dialyzer: 160
Ultrafiltration: Other
Blood Flow: 400
Dialysate Flow: 600
Heparin: None platelet count is dropping
EPO: 10,000,
--- NOTE | 2025-04-21 08:40 | W.PN.HOSP.TC ---
Today's Communication/Plan
-
HD today
Continue tube feeds now at goal
Continued discussion with family regarding goals of care
Assessment / Plan
Assessment / Plan
59 y/o patient had a prolonged hospitalization at [facility] January 11, 2025 to March 17, 2025 for intractable back pain, catheter associated infection, Klebsiella bacteremia. On long-term IV antibiotics cefepime and daptomycin with HD here
for acute change in mental status. Patient was obtunded on arrival and hypotensive. Baseline intermittently confused and bedbound since November per POA. Able to talk to sister on the phone at baseline
Imaging:
CT Head- No acute intracranial abnormality noted.There are mild/moderate periventricular and subcortical white matter hypodensities which are nonspecific, however likely sequelae of chronic small vessel ischemic disease.
EEG 04/11/2025--diffuse cortical dysfunction without focal abnormality. No seizures
Echo 04/11/2025--technically difficult study. Normal biventricular size and function without regional WMA. EF 60 to 65%. Aortic sclerosis
Brain MRI 04/13/25-- There are small foci of restricted diffusion involving the bilateral frontoparietal white matter, the left frontal white matter more anteriorly in the right basal ganglia consistent with acute/subacute infarctions. These may be
embolic in nature given the multivessel territory.
Mild atrophy with sequelae of moderate chronic small vessel ischemic disease.
Prominent blooming artifact along the left paramedian parietal lobe which is likely sequelae of prior hemorrhage/hematoma.
CT ab/pelvis with IV contrast 04/15/25 impression:
IMPRESSION:
1. Examination significantly limited as above.
2. Anasarca.
3. Splenomegaly.
4. Atrophic changes bilateral kidneys with extensive cystic change as above.
5. Proctitis, indeterminate etiology.
6. Diffuse wall thickening of the urinary bladder, question outlet obstruction or neurogenic bladder. Small focus of gas within the bladder which could be related to recent catheterization or infection.
7. Recent fracture greater trochanter right femur.
8. Osseous destructive process at the T8-T9 level which is incompletely imaged on this examination.
9. Abnormal lucent and sclerotic appearance of the bones which could be related to renal osteodystrophy.
Hip x-ray 04/17/25 impression: Findings suggesting subacute fracture of the right greater trochanter.
Plan:
# CVA
--MRI of the brain revealed multiple small foci in bilateral frontotemporal parietal white matter and left frontal white matter anteriorly in the right basal ganglia consistent with acute/subacute infarcts
--Neurology does not believe it is contributing to AMS and there are no treatment options at this point as already on anti-coagulation - work up for other causes of hypercoagulable state per heme/onc
--Appears to be embolic in nature
--Appreciate cardiology for ALENA to eval for endocarditis - cardiology will do ALENA once AAO. High risk of aspiration due to obtunded state.
# Acute metabolic encephalopathy
--Hypotension/polypharmacy/hypovolemia/CVA
--EEG without seizures or status
--On lexapro now that dobhoff is in. Cont to hold gabapentin and haldol for AMS
--Patient is still not able to follow directions or answer questions
--Dobhoff placed on 04/18/25 for feeds - monitor for re-feeding syndrome
# History of VRE and Klebsiella bacteremia
--Admitted on daptomycin and cefepime transitioned to IV Zosyn per ID -> d/c as records indicate completion of antibiotics at [place] and unclear as to why they were started at [facility]. Cultures have been negative and afebrile.
# Pancytopenia
--Anemia likely secondary to chronic kidney disease
--BM biopsy and MM work up was done at [place] - BM biopsy records obtained revealing no BM or genetic mutations
--Heme/onc appreciated for possible eval for TTP - no TTP as no schistocytes and normal LDH - antibody panels for other causes of hypercoagulable states pending
--Transfuse for hg <7
# Elevated troponin
--Possible ST depressions on EKG - reviewed by cards believe baseline trop in setting of ESRD no further recs
# Chronic CHF-NOS-on dialysis now
# ESRD on HD Monday
--Left anterior chest wall HD catheter
--Nephrology appreciated
# Paroxysmal atrial fibrillation
--metoprolol to be switched to IV. Patient is n.p.o. therefore Eliquis was switched to heparin drip -> d/c heparin, switch back to Eliquis with dobhoff in
# Anxiety and depression
--on buspirone 10 mg 3 times daily, Lexapro 10 mg, Haldol 10 mg every 48 hours as needed for agitation as outpatient.
--Currently p.o. medicines are on hold as patient is n.p.o. -> On buspirone and lexapro now with dobhoff
#Metastatic disease?
--Hospital records from [place] revealed concerns for metastatic disease after MRI of spine done. Some proctocolitis of bowels noted on imaging as well.
--CT ab/pelvis revealed no obvious metastatic disease
# Diarrhea
--c. diff (-)
--Ongoing with tube feeds
#Right greater trochanteric femur fracture
--No surgical intervention required per ortho
# Hypertension-metoprolol
# Hyperlipidemia-restart statin
# Hypokalemia-replete
# Hypophosphatemia - replete
# Bedbound since November 2024 with intermittent confusion at baseline
# DM- SSI only with accu checks
# Concern for vascular dementia
# Unstageable sacral pressure injury, stage I B/L heel pressure injury-turn patient every 2 hours and also continue with wound care - Tylenol 1,000mg TID for pain
# Amputation of the left toes 1-3
# Osseous destruction of T8-T9
# Splenomegaly
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
DVT prophylaxis-Heparin gtt
Full code
POA's sister Geovanni. bhoff can only stay for 5-7 days. Sister aware and plans to continue conversation with sisters and daughters.
Anticipated Discharge: > 48 hours
Subjective/Interval History
-
Date of Service: April 21, 2025
like he tried to verbalize the words 'help' to the dialysis nurse. Making some noises. Opening his eyes and appears to be listening, but still not following commands.
Objective Data
-
Labs:
Laboratory Results
04/21/25
07:25
WBC Pending
Hgb Pending
Hct Pending
Plt Count Pending
Sodium Pending
Potassium Pending
Chloride Pending
Carbon Dioxide Pending
BUN Pending
Creatinine Pending
Glucose Pending
Calcium Pending
Total Bilirubin Pending
AST Pending
ALT Pending
Alkaline Phosphatase Pending
Vital Signs:
Vital Signs
Temp Pulse Resp BP Pulse Ox
98.4 F 70 15 88/54 100
04/21/25 02:10 04/21/25 04:56 04/21/25 04:56 04/21/25 04:56 04/21/25 04:56
I&O
04/20/25 04/21/25 04/22/25
06:59 06:59 06:59
Intake Total 1100 / 1100
Output Total 0 / 0
Balance 1100 / 1100
Review of Systems
-
Unable to obtain full review of systems at this time due to: Dementia and Acuity
Physical Exam
-
General: Appears Chronically Ill
Respiratory: Clear to Auscultation
Cardiac: Regular Rhythm and S1/S2
GI: Soft, Nontender, Nondistended and Normal Bowel Sounds
Musculoskeletal: No Cyanosis and No Edema
Skin: Warm and Dry
[2025-04-21 08:53] LABS: ALT (SGPT) 11 U/L (0-50); AST (SGOT) 15 U/L (17-59); Albumin 2.7 g/dl (3.5-5.0); Alkaline Phosphatase 154 U/L (38-126); Blood Urea Nitrogen 39 mg/dl (9-20); Calcium 9.5 mg/dl (8.4-10.2); Carbon Dioxide 28 mmol/L (22-30); Chloride 102 mmol/L (98-107); Glucose 207 mg/dl (70-99); Potassium 3.2 mmol/L (3.5-5.1); Sodium 134 mmol/L (135-145); Total Protein 5.4 g/dl (6.3-8.2); eGFR 18.15
--- NOTE | 2025-04-21 10:15 | W.PN.UPDATE ---
Update Note
Progress Note Update
I saw and evaluated the patient. I reviewed the resident�s note and agree with findings and plan as documented in the resident�s note.
59 y/o patient had a prolonged hospitalization at [facility] January 11, 2025 to March 17, 2025 for intractable back pain, catheter associated infection, Klebsiella bacteremia. On long-term IV antibiotics cefepime and daptomycin with HD here
for acute change in mental status. Patient was obtunded on arrival and hypotensive. Baseline intermittently confused and bedbound since November 2024 per POA. Able to talk to sister on the phone at baseline.
Currently not verbal
Gen: NAD, appears chronically ill, malnourished, cachectic
Eyes: EOMI, PERRLA, no scleral icterus.
Neck: supple.
CV: RRR, +S1/S2, 2/6 systolic murmur
Resp: CTAB, no rales, wheezes, or rhonchi.
Abd: +BS, soft, NT, ND
Skin: No rashes.
Neuro: CN 2-12 intact, non-focal.
Psych: Calm
04/10/25 12:30 Blood/Venous Blood Culture - Final
No Growth - Final Report
04/10/25 10:12 Blood/Venous Blood Culture - Final
No Growth - Final Report
04/13/25 14:55 Feces/Stool C. difficile GDH Antigen & Toxins - Final
Negative for toxigenic C.difficile
04/11/25 04:12 Nose MRSA Screen - Final
Staph aureus MRSA
CT Head: No acute intracranial abnormality noted.There are mild/moderate periventricular and subcortical white matter hypodensities which are nonspecific, however likely sequelae of chronic small vessel ischemic disease.
EEG 04/11/2025: Diffuse cortical dysfunction without focal abnormality. No seizures activity.
Echo 04/11/2025: TDS. EF 60-65%, no RWMA.
MRI brain 04/13/25: There are small foci of restricted diffusion involving the bilateral frontoparietal white matter, the left frontal white matter more anteriorly in the right basal ganglia consistent with acute/subacute infarctions. These may be
embolic in nature given the multivessel territory. Mild atrophy with sequelae of moderate chronic small vessel ischemic disease. Prominent blooming artifact along the left paramedian parietal lobe which is likely sequelae of prior
hemorrhage/hematoma.
CT A/P w/IV contrast 04/15/25:
1. Examination significantly limited as above.
2. Anasarca.
3. Splenomegaly.
4. Atrophic changes bilateral kidneys with extensive cystic change as above.
5. Proctitis, indeterminate etiology.
6. Diffuse wall thickening of the urinary bladder, question outlet obstruction or neurogenic bladder. Small focus of gas within the bladder which could be related to recent catheterization or infection.
7. Recent fracture greater trochanter right femur.
8. Osseous destructive process at the T8-T9 level which is incompletely imaged on this examination.
9. Abnormal lucent and sclerotic appearance of the bones which could be related to renal osteodystrophy.
R Hip x-ray 04/17/25: Findings suggesting subacute fracture of the right greater trochanter.
Acute/subacute CVAs :
-MRI brain above, likely embolic in nature
-Neurology does not believe Acute/subacute CVAs are contributing to AMS/acute metabolic encephalopathy and there are no treatment options at this point as the pt is already on AC
-should continued aggressive care be desired, work up for other causes of hypercoagulable state per heme/onc
-as per cards, no ALENA at this time as too high risk for aspiration with current obtunded state
Acute metabolic encephalopathy
-Multifactorial due to hypotension/polypharmacy/hypovolemia and possibly acute/subacute CVAs
-neuro saw in c/s
-EEG without seizure activity
-Cont to hold gabapentin/haldol
-pt still not able to follow directions or answer questions
-Dobhoff placed on 04/18/25 for feeds, monitor for re-feeding syndrome
h/o VRE and Klebsiella bacteremia:
-admitted on daptomycin/cefepime and transitioned to IV Zosyn per ID. Now off abx as per ID as d/c records indicate completion of antibiotics at [place] and unclear as to why they were started at [facility]. Cultures have been negative and
afebrile.
Pancytopenia:
-anemia likely secondary to chronic kidney disease
-BMBx and MM work up was done at [place] revealing no BM or genetic mutations
-Heme/onc appreciated for possible eval for TTP, no TTP as no schistocytes and normal LDH, antibody panels for other causes of hypercoagulable states pending
-Transfuse for Hb <7
Other problems:
Elevated troponin, nonischemic myocardial injury and due to underlying ESRD
Chronic HFpEF: cont BB
ESRD: cont HD M/W/F, renal following
PAF: Cont BB/Eliquis
Anxiety/depression: cont Buspar/Lexapro
? Metastatic disease: Hospital records from [place] revealed concerns for metastatic disease after MRI of spine done. Some proctocolitis of bowels noted on imaging as well. CT A/P revealed no obvious metastatic disease
Diarrhea: C diff NEG
R greater trochanteric femur fracture: No surgical intervention required per ortho.
Essential HTN: BB with holding parameters
HLD: Cont statin
Hypokalemia, replete
Hypophosphatemia, replete
Bedbound since November 2024 with intermittent confusion at baseline
DM2: SSI/accuchecks
Concern for vascular dementia
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
Osseous destruction of T8-T9
Splenomegaly
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
Wounds:
-Unstageable sacral pressure injury
-stage I B/L heel pressure injury
-wound care
-Tylenol 1,000mg TID for pain
I had an extensive conversation with the patient's sister over the phone. I explained that, considering the extreme degree of an burden of pathology as well as the fact that the patient is clinically not improving, that, in my opinion, hospice is
appropriate. She stated that she and the family are not ready for hospice. I asked if they would consider changing the patient's CODE STATUS to DNR. She stated that the family would let me know by tomorrow.
FULL/Eliquis
Total time spent on today's encounter was 53 minutes which included time spent in counseling the patient/family regarding diagnosis and treatment plan as listed above, goals of care, and symptom management. Case was discussed with nursing staff,
specialists, and care coordinators/case management. All labs and imaging personally reviewed by me. Remainder the time spent in detailed review of previous records, lab data, imaging, and other medical provider documentation.
[2025-04-21] MEDS: LOPRESSOR 50 MG TUBE ×2 (11:44→20:23)
[2025-04-21] MEDS: LEXAPRO 20 MG TUBE (11:44)
[2025-04-21] MEDS: BUSPAR 10 MG TUBE ×3 (11:44→21:58)
[2025-04-21] MEDS: VITAMIN B1 100 MG TUBE (11:44)
[2025-04-21] MEDS: NEUTRA-PHOS POWDER PACKET 250 MG PO ×2 (11:44→20:23)
[2025-04-21] MEDS: THERAGRAN 1 TABLET TUBE (11:50)
[2025-04-21] MEDS: PROTONIX IV 40 MG IV ×2 (11:50→20:23)
[2025-04-21] MEDS: SANTYL OINTMENT 1 APPLIC TOPICAL (11:51)
[2025-04-21] MEDS: NSS (PRESERVATIVE FREE) 10 ML IV (11:51)
[2025-04-21] MEDS: TYLENOL 1000 MG TUBE ×3 (11:54→21:58)
[2025-04-21] MEDS: ELIQUIS 2.5 MG TUBE (11:54)
[2025-04-21] MEDS: DESENEX/MITRAZOL/ZEASORB 1 APPLIC TOPICAL ×2 (11:55→20:23)
[2025-04-21] MEDS: DAKIN'S SOLUTION 0.125% 1/4 STRENGTH 473 ML TOPICAL (11:55)
[2025-04-21] MEDS: NOVOLOG FLEXPEN-MODERATE RESISTANCE SC (12:12)
--- NOTE | 2025-04-21 12:31 | W.PN.ONC ---
Today's Communication / Plan
-
follow CBC
Impression
Impression
Pancytopenia due to acute/chronic illness, splenomegaly could be contributing
peripheral smear without schistocytes reviewed by Dr. Bright 04/18/2025
VRE bacteremia
ESRD on HD
Vascular dementia
CVA
Atrial fibrillation
Plan
Plan
Assess lupus anticoagulant and antiphospholipid antibodies - pending
Monitor CBC
Subjective/Objective
Subjective/Objective
minimally interactive
Vital Signs:
Vital Signs
Temp Pulse Resp BP Pulse Ox
98.3 F 78 15 114/104 100
04/21/25 08:15 04/21/25 11:44 04/21/25 04:56 04/21/25 11:44 04/21/25 04:56
Lab Results:
Laboratory Data
WBC Cancelled 04/21/25 07:25
Hgb Cancelled 04/21/25 07:25
Plt Count Cancelled 04/21/25 07:25
APTT 102.3 Sec (23.4-35.0) H 04/17/25 03:49
eGFR 18.15 04/21/25 07:25
Exam: unchanged
--- NOTE | 2025-04-21 12:47 | PTCARENOTE ---
Patient is nonverbal, opens eyes to painful stimuli, unable to follow commands. NIH scores increasing over the last 24 hours. Discussed NIH score with Dr. Roman, no testing ordered at this time.
--- NOTE | 2025-04-21 13:10 | W.PN.NEURO.1 ---
Today's Communication / Plan
-
Check blood work potential metabolic abnormalities
Provide thiamine
Discontinue NIH stroke scale
Neuro Assessment/Plan
Assessment
59 year old very ill man with altered mental status, obtunded.
EEG 04/11 generalized slowing
brain MRI showing ~5 small acute/subacute appearing infarcts in the right basal ganglia and bilateral white matter
Also extensive white matter leukoaraiosis and atrophy, much more than would be expected at his age suggestive of vascular dementia
Plan
Check blood work potential metabolic abnormalities
Provide thiamine
Discontinue NIH stroke scale
Will follow as needed
Subjective/Objective
Subjective Data
Date of Service: April 21, 2025
Objective Data
Vital Signs
Temp Pulse Resp BP Pulse Ox
36.8 C 78 15 114/104 100
04/21/25 08:15 04/21/25 11:44 04/21/25 04:56 04/21/25 11:44 04/21/25 04:56
Lab Results
04/21/25 07:25
APTT 102.3 Sec (23.4-35.0) H 04/17/25 03:49
Sodium 134 mmol/L (135-145) L 04/21/25 07:25
Potassium 3.2 mmol/L (3.5-5.1) L 04/21/25 07:25
BUN 39 mg/dl (9-20) H 04/21/25 07:25
Glucose 207 mg/dl (70-99) H 04/21/25 07:25
Calcium 9.5 mg/dl (8.4-10.2) 04/21/25 07:25
Phosphorus 1.5 mg/dl (2.5-4.5) L 04/20/25 04:29
Patient Allergies
losartan Allergy (Verified 04/10/25 22:15)
Unknown
oxycodone Allergy (Verified 04/10/25 22:15)
Unknown
Data Reviewed
-
Labs: Report Reviewed
Reviewed with: Nurse
Old Records: Summarized
--- NOTE | 2025-04-21 14:07 | PTCARENOTE ---
RN discussed elevated NIH score with Dr. Roman and Dr. Abel. Dr. Abel stated that the NIH score is to be discontinued at this time. Labs completed.
[2025-04-21 14:32] LABS: Hematocrit 19.6 % (39.0-52.0); Hemoglobin 6.4 g/dL (13.0-18.0); Mean Corp Hgb Conc. 32.7 g/dL (33.0-37.0); Mean Corpuscular Volume 89.9 fL (80.0-94.0); Platelet Count 52 10^3/uL (130-400); Red Cell Dist. Width 17.7 % (11.5-14.5)
[2025-04-21 15:36] LABS: Folate 4.2 ng/ml (2.76-20); Vitamin B12 929 pg/ml (239-931)
[2025-04-21 15:55] LABS: Ferritin 2520.0 ng/ml (17.9-464.0)
[2025-04-21] MEDS: CRESTOR 10 MG TUBE (17:11)
[2025-04-21] MEDS: THIAMINE INJECTION 100 MG IV (17:11)
--- NOTE | 2025-04-21 17:19 | PTCARENOTE ---
Lab results discussed with resident and hospitalist, Hgb 6.4. No signs of active bleeding. Patient is for one unit of PRBCs, consent signed in the chart.
[2025-04-21] MEDS: NOVOLOG FLEXPEN-MODERATE RESISTANCE 1 UNITS SC (17:53)
[2025-04-21 18:03] LABS: Glucose - Point of Care 192 mg/dl (70-99)
[2025-04-21 21:55] LABS: Anticoagulant Med Neutralizati Not Performed (Not Performed); Neutralized dRVTT Screen Ratio Not Performed (<=1.20); Prothrombin Time 16.2 s (12.0-15.5); dRVTT 1.1 Mix Ratio 1.04 (<=1.20); dRVTT Confirmation Ratio 0.95 (<=1.20); dRVTT Screen Ratio 1.21 (<=1.20)
--- NOTE | 2025-04-21 22:35 | PTCARENOTE ---
Caring for pt overnight. Pt remains the same, no improvement neurologically. Though, pt has yelled out a few times which is new, other than that he remains nonverbal. Opens eyes occasionally. Does not follow commands. Q2T. Tube feeds running at
goal. 1U blood given, recheck hgb at 0200. No signs of bleeding. HEMETEST NEG. SCDs. HOB 30degrees. VSS. NSR. No other issues. will monitor.
[2025-04-21 23:53] LABS: Glucose - Point of Care 207 mg/dl (70-99)
[2025-04-22] VITALS (12 sets, daily range): BP systolic 106–123; BP diastolic 57–103
[2025-04-22] MEDS: NOVOLOG FLEXPEN-MODERATE RESISTANCE 3 UNITS SC ×4 (01:13→18:01)
[2025-04-22 02:32] LABS: Hematocrit 23.5 % (39.0-52.0); Hemoglobin 7.7 g/dL (13.0-18.0); Mean Corp Hgb Conc. 32.8 g/dL (33.0-37.0); Mean Corpuscular Volume 87.4 fL (80.0-94.0); Platelet Count 72 10^3/uL (130-400); Red Cell Dist. Width 18.3 % (11.5-14.5)
[2025-04-22 02:50] LABS: ALT (SGPT) 11 U/L (0-50); AST (SGOT) 16 U/L (17-59); Albumin 2.7 g/dl (3.5-5.0); Alkaline Phosphatase 158 U/L (38-126); Blood Urea Nitrogen 25 mg/dl (9-20); Calcium 8.7 mg/dl (8.4-10.2); Carbon Dioxide 28 mmol/L (22-30); Chloride 100 mmol/L (98-107); Glucose 207 mg/dl (70-99); Potassium 3.7 mmol/L (3.5-5.1); Sodium 132 mmol/L (135-145); Total Protein 5.2 g/dl (6.3-8.2); eGFR 27.72
[2025-04-22 05:56] LABS: Glucose - Point of Care 241 mg/dl (70-99)
[2025-04-22 08:03] LABS: Glucose - Point of Care 101 mg/dl (70-99)
[2025-04-22 08:29] LABS: Cortisol, Random 20.3 ug/dl
--- NOTE | 2025-04-22 08:44 | W.PN.HOSP.TC ---
Today's Communication/Plan
-
IV levothyroxine 75, endocrinology consult for further recs for concerns of hypothyroidism vs myxedema coma
Eliquis held after hg drop yesterday - restart with no signs of bleed
Appreciate heme/onc for lupus results
Assessment / Plan
Assessment / Plan
59 y/o patient had a prolonged hospitalization at [facility] January 11, 2025 to March 17, 2025 for intractable back pain, catheter associated infection, Klebsiella bacteremia. On long-term IV antibiotics cefepime and daptomycin with HD here
for acute change in mental status. Patient was obtunded on arrival and hypotensive. Baseline intermittently confused and bedbound since November per POA. Able to talk to sister on the phone at baseline
Imaging:
CT Head- No acute intracranial abnormality noted.There are mild/moderate periventricular and subcortical white matter hypodensities which are nonspecific, however likely sequelae of chronic small vessel ischemic disease.
EEG 04/11/2025--diffuse cortical dysfunction without focal abnormality. No seizures
Echo 04/11/2025--technically difficult study. Normal biventricular size and function without regional WMA. EF 60 to 65%. Aortic sclerosis
Brain MRI 04/13/25-- There are small foci of restricted diffusion involving the bilateral frontoparietal white matter, the left frontal white matter more anteriorly in the right basal ganglia consistent with acute/subacute infarctions. These may be
embolic in nature given the multivessel territory.
Mild atrophy with sequelae of moderate chronic small vessel ischemic disease.
Prominent blooming artifact along the left paramedian parietal lobe which is likely sequelae of prior hemorrhage/hematoma.
CT ab/pelvis with IV contrast 04/15/25 impression:
IMPRESSION:
1. Examination significantly limited as above.
2. Anasarca.
3. Splenomegaly.
4. Atrophic changes bilateral kidneys with extensive cystic change as above.
5. Proctitis, indeterminate etiology.
6. Diffuse wall thickening of the urinary bladder, question outlet obstruction or neurogenic bladder. Small focus of gas within the bladder which could be related to recent catheterization or infection.
7. Recent fracture greater trochanter right femur.
8. Osseous destructive process at the T8-T9 level which is incompletely imaged on this examination.
9. Abnormal lucent and sclerotic appearance of the bones which could be related to renal osteodystrophy.
Hip x-ray 04/17/25 impression: Findings suggesting subacute fracture of the right greater trochanter.
Plan:
# CVA
--MRI of the brain revealed multiple small foci in bilateral frontotemporal parietal white matter and left frontal white matter anteriorly in the right basal ganglia consistent with acute/subacute infarcts
--Neurology does not believe it is contributing to AMS and there are no treatment options at this point as already on anti-coagulation - lupus anticoagulant detected -appreciate heme/onc
--Appears to be embolic in nature
--Appreciate cardiology for ALENA to eval for endocarditis - cardiology will do ALENA once AAO. High risk of aspiration due to obtunded state.
# Acute metabolic encephalopathy
--Hypotension/polypharmacy/hypovolemia/CVA
--EEG without seizures or status
--On lexapro now that dobhoff is in. Cont to hold gabapentin and haldol for AMS
--Patient is still not able to follow directions or answer questions
--Dobhoff placed on 04/18/25 for feeds - monitor for re-feeding syndrome
#Hypothyroidism/myedema coma?
--TSH 26.50 and free T4 0.60. Gave 75mcg levothyroxine IV, endocrine consulted for further management recommendations
--AM cortisol wnl. TPO antibody pending
# Pancytopenia
--Anemia likely secondary to chronic kidney disease
--BM biopsy and MM work up was done at [place] - BM biopsy records obtained revealing no BM or genetic mutations
--Heme/onc appreciated for possible eval for TTP - no TTP as no schistocytes and normal LDH
--Transfuse for hg <7
--04/21/25 hg 6.4 -> 1 unit PRBC, PPI BID, heme-occult ordered and eliquis held - no clinical signs of active bleed and heme-occult negative - restart Eliquis and monitor CBC
# ESRD on HD Monday
--Left anterior chest wall HD catheter
--Nephrology appreciated
# Paroxysmal atrial fibrillation
--metoprolol to be switched to IV. Patient is n.p.o. therefore Eliquis was switched to heparin drip -> d/c heparin, switch back to Eliquis with dobhoff in
# Anxiety and depression
--on buspirone 10 mg 3 times daily, Lexapro 10 mg, Haldol 10 mg every 48 hours as needed for agitation as outpatient.
--Currently p.o. medicines are on hold as patient is n.p.o. -> On buspirone and lexapro now with dobhoff
# History of VRE and Klebsiella bacteremia
--Admitted on daptomycin and cefepime transitioned to IV Zosyn per ID -> d/c as records indicate completion of antibiotics at [place] and unclear as to why they were started at [facility]. Cultures have been negative and afebrile.
#Metastatic disease?
--Hospital records from [place] revealed concerns for metastatic disease after MRI of spine done. Some proctocolitis of bowels noted on imaging as well.
--CT ab/pelvis revealed no obvious metastatic disease
# Chronic CHF-NOS-on dialysis now
# Elevated troponin - cards evaluated believed to be baseline in setting of ESRD
# Diarrhea -c. diff (-), Ongoing with tube feeds
#Right greater trochanteric femur fracture -No surgical intervention required per ortho
# Hypertension-metoprolol
# Hyperlipidemia-restart statin
# Hypokalemia-replete
# Hypophosphatemia - replete
# Bedbound since November 2024 with intermittent confusion at baseline
# DM- SSI only with accu checks
# Concern for vascular dementia
# Unstageable sacral pressure injury, stage I B/L heel pressure injury-turn patient every 2 hours and also continue with wound care - Tylenol 1,000mg TID for pain
# Amputation of the left toes 1-3
# Osseous destruction of T8-T9
# Splenomegaly
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
DVT prophylaxis-Heparin gtt
Full code
LEA's sister Geovanni. Peace can only stay for 5-7 days. Sister aware and plans to continue conversation with sisters and daughters.
Anticipated Discharge: > 48 hours
Subjective/Interval History
-
Date of Service: April 22, 2025
Remains obtunded for me, however nursing states he has been saying short words and it appears like his mental status is improving.
Objective Data
-
Labs:
Laboratory Results
04/21/25 04/22/25 04/22/25
20:00 02:13 02:13
WBC 5.9
Hgb Cancelled 7.7 L D Cancelled
Hct Cancelled 23.5 L
Plt Count
Sodium
Potassium
Chloride
Carbon Dioxide
BUN
Creatinine
Glucose
Calcium
Total Bilirubin
AST
ALT
Alkaline Phosphatase
04/22/25
02:13
WBC
Hgb
Hct Cancelled
Plt Count 72 L D
Sodium 132 L
Potassium 3.7
Chloride 100
Carbon Dioxide 28
BUN 25 H
Creatinine 2.6 H
Glucose 207 H
Calcium 8.7
Total Bilirubin 0.7
AST 16 L
ALT 11
Alkaline Phosphatase 158 H
Vital Signs:
Vital Signs
Temp Pulse Resp BP Pulse Ox
98.8 F 73 19 120/57 100
04/22/25 07:28 04/22/25 06:00 04/22/25 06:00 04/22/25 06:00 04/22/25 00:00
I&O
04/21/25 04/22/25 04/23/25
06:59 06:59 06:59
Intake Total 1250 / 1250
Output Total 0 / 0
Balance 1250 / 1250
Review of Systems
-
Unable to obtain full review of systems at this time due to: Dementia and Acuity
Physical Exam
-
Respiratory: Clear to Auscultation
Cardiac: Regular Rhythm and S1/S2
GI: Soft, Nondistended and Normal Bowel Sounds
Musculoskeletal: No Cyanosis and No Edema
Skin: Warm and Dry
Psych: Calm
[2025-04-22] MEDS: LEVOTHROID 75 MCG IV (09:14)
[2025-04-22] MEDS: THIAMINE INJECTION 100 MG IV (09:18)
[2025-04-22] MEDS: PROTONIX IV 40 MG IV ×2 (09:20→20:08)
[2025-04-22] MEDS: NSS (PRESERVATIVE FREE) 10 ML IV ×2 (09:20→20:08)
[2025-04-22] MEDS: TYLENOL 1000 MG TUBE ×3 (09:23→22:51)
[2025-04-22] MEDS: VITAMIN B1 100 MG TUBE (09:23)
[2025-04-22] MEDS: THERAGRAN 1 TABLET TUBE (09:23)
[2025-04-22] MEDS: LOPRESSOR 50 MG TUBE ×2 (09:24→20:07)
[2025-04-22] MEDS: DAKIN'S SOLUTION 0.125% 1/4 STRENGTH 473 ML TOPICAL (09:24)
[2025-04-22] MEDS: LEXAPRO 20 MG TUBE (09:24)
[2025-04-22] MEDS: ELIQUIS 2.5 MG TUBE (09:24)
[2025-04-22] MEDS: BUSPAR 10 MG TUBE ×3 (09:24→22:51)
[2025-04-22] MEDS: DESENEX/MITRAZOL/ZEASORB TOPICAL (09:25)
[2025-04-22] MEDS: SANTYL OINTMENT 1 APPLIC TOPICAL (09:25)
--- NOTE | 2025-04-22 10:57 | W.PN.NEPH.PH ---
Today's Communication / Plan
-
HD tomorrow
Assessment/Plan
-
59M [facility] resident ESRD MWF pafib Eliquis HTN HLD DM PAD toe amputations CHF Anxiety Depression suspected underlying vascular dementia recent prolonged hospitalization [facility] January 11 to March 17 for intractable back pain catheter
associated infection VR and Klebsiella bacteremia (following which he was discharged to [facility] with [facility] IV abx Cefipime and Daptomycin to be given with HD- sent by SNF for evaluation AMS, normally AOx3 at baseline, essentially obtunded on
arrival with associate severe hypotension systolic 70s. Improved with IVF bolus,
Impression
ESRD MWF [facility]
Sepsis
A-fib
Dementia/AMS
CVA
History of Klebsiella pneumonia due to catheter in December 2024 at [facility]
Plan.
hemodynamically stable
remains altered, on DHT feeds
Blood pressure controlled on metoprolol
We will maintain JOSHUA on HD for persistent anemia
suspect lupus anticoagulant +ve, heme suggest warfarrin -is ok from renal stand point
HD tomorrow
-
-
Date of Service: April 22, 2025
CC / HPI / ROS
-
Chief Complaint:
AMS, ESRD
History of Present Illness:
Anemia persist 7.7, better post pPRBC
BP stable
sodium at 132
Review of Systems:
The patient not responding does open his eyes but does not follow commands and is in no distress
Catheter
No fevers
Labs
-
Labs:
WBC 5.9 10^3/uL (4.8-10.8) 04/22/25 02:13
RBC 2.69 10^6/uL (4.70-6.10) L 04/22/25 02:13
Hgb 7.7 g/dL (13.0-18.0) L D 04/22/25 02:13
Hgb Cancelled 04/22/25 02:13
Hct 23.5 % (39.0-52.0) L 04/22/25 02:13
Hct Cancelled 04/22/25 02:13
Plt Count 72 10^3/uL (130-400) L D 04/22/25 02:13
Sodium 132 mmol/L (135-145) L 04/22/25 02:13
Potassium 3.7 mmol/L (3.5-5.1) 04/22/25 02:13
Chloride 100 mmol/L (98-107) 04/22/25 02:13
Carbon Dioxide 28 mmol/L (22-30) 04/22/25 02:13
BUN 25 mg/dl (9-20) H 04/22/25 02:13
Creatinine 2.6 mg/dL (0.7-1.3) H 04/22/25 02:13
eGFR 27.72 04/22/25 02:13
Glucose 207 mg/dl (70-99) H 04/22/25 02:13
Calcium 8.7 mg/dl (8.4-10.2) 04/22/25 02:13
Phosphorus 1.5 mg/dl (2.5-4.5) L 04/20/25 04:29
Albumin 2.7 g/dl (3.5-5.0) L 04/22/25 02:13
Physical Exam
-
Vital Signs:
Vital Signs
Temp Pulse Resp BP Pulse Ox
98.8 F 78 19 117/61 100
04/22/25 07:28 04/22/25 09:24 04/22/25 06:00 04/22/25 09:24 04/22/25 00:00
Cardiovascular:: Regular rate and rhythm
Respiratory:: Bilateral: Coarse
Lung Excursion:: Normal
Abdomen:: Nontender and Soft
Bowel Sounds:: Normal
Extremity Edema:: None: Bilateral:
Other Findings::
Feeding tube
Dialysis catheter
--- NOTE | 2025-04-22 11:31 | W.PN.UPDATE ---
Update Note
Progress Note Update
I saw and evaluated the patient. I reviewed the resident�s note and agree with findings and plan as documented in the resident�s note.
59 y/o patient had a prolonged hospitalization at [facility] January 11, 2025 to March 17, 2025 for intractable back pain, catheter associated infection, Klebsiella bacteremia. On long-term IV antibiotics cefepime and daptomycin with HD here
for acute change in mental status. Patient was obtunded on arrival and hypotensive. Baseline intermittently confused and bedbound since November 2024 per POA. Able to talk to sister on the phone at baseline.
Currently not verbal.
Gen: NAD, appears chronically ill, malnourished, cachectic
Eyes: EOMI, no scleral icterus.
Neck: supple.
CV: remains RRR, +S1/S2, 2/6 systolic murmur
Resp: remains CTAB, no rales, wheezes, or rhonchi.
Abd: remains +BS, soft, NT, ND
Skin: No rashes.
Neuro: CN 2-12 intact, non-focal.
Psych: Calm
04/10/25 12:30 Blood/Venous Blood Culture - Final
No Growth - Final Report
04/10/25 10:12 Blood/Venous Blood Culture - Final
No Growth - Final Report
04/13/25 14:55 Feces/Stool C. difficile GDH Antigen & Toxins - Final
Negative for toxigenic C.difficile
04/11/25 04:12 Nose MRSA Screen - Final
Staph aureus MRSA
CT Head: No acute intracranial abnormality noted.There are mild/moderate periventricular and subcortical white matter hypodensities which are nonspecific, however likely sequelae of chronic small vessel ischemic disease.
EEG 04/11/2025: Diffuse cortical dysfunction without focal abnormality. No seizures activity.
Echo 04/11/2025: TDS. EF 60-65%, no RWMA.
MRI brain 04/13/25: There are small foci of restricted diffusion involving the bilateral frontoparietal white matter, the left frontal white matter more anteriorly in the right basal ganglia consistent with acute/subacute infarctions. These may be
embolic in nature given the multivessel territory. Mild atrophy with sequelae of moderate chronic small vessel ischemic disease. Prominent blooming artifact along the left paramedian parietal lobe which is likely sequelae of prior
hemorrhage/hematoma.
CT A/P w/IV contrast 04/15/25:
1. Examination significantly limited as above.
2. Anasarca.
3. Splenomegaly.
4. Atrophic changes bilateral kidneys with extensive cystic change as above.
5. Proctitis, indeterminate etiology.
6. Diffuse wall thickening of the urinary bladder, question outlet obstruction or neurogenic bladder. Small focus of gas within the bladder which could be related to recent catheterization or infection.
7. Recent fracture greater trochanter right femur.
8. Osseous destructive process at the T8-T9 level which is incompletely imaged on this examination.
9. Abnormal lucent and sclerotic appearance of the bones which could be related to renal osteodystrophy.
R Hip x-ray 04/17/25: Findings suggesting subacute fracture of the right greater trochanter.
Acute/subacute CVAs :
-MRI brain above, likely embolic in nature
-Neurology does not believe Acute/subacute CVAs are contributing to AMS/acute metabolic encephalopathy and there are no treatment options at this point as the pt is already on AC
-should continued aggressive care be desired, work up for other causes of hypercoagulable state per heme/onc
-as per cards, no ALENA at this time as too high risk for aspiration with current obtunded state
Acute metabolic encephalopathy
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
-start IV Synthroid, c/s endocrine
-neuro following
-EEG without seizure activity
-Cont to hold gabapentin/haldol
-Dobhoff placed on 04/18/25 for feeds, monitor for re-feeding syndrome
h/o VRE and Klebsiella bacteremia:
-admitted on daptomycin/cefepime and transitioned to IV Zosyn per ID. Now off abx as per ID as d/c records indicate completion of antibiotics at [place] and unclear as to why they were started at [facility]. Cultures have been negative and
afebrile.
Pancytopenia:
-anemia likely secondary to chronic kidney disease
-BMBx and MM work up was done at [place] revealing no BM or genetic mutations
-Heme/onc appreciated for possible eval for TTP, no TTP as no schistocytes and normal LDH, antibody panels for other causes of hypercoagulable states pending
-Transfuse for Hb <7 (received 1U pRBCs on 04/21/25)
Other problems:
Elevated troponin, nonischemic myocardial injury and due to underlying ESRD
Chronic HFpEF: cont BB
ESRD: cont HD M/W/F, renal following
PAF: Cont BB/Eliquis
Anxiety/depression: cont Buspar/Lexapro
? Metastatic disease: Hospital records from [place] revealed concerns for metastatic disease after MRI of spine done. Some proctocolitis of bowels noted on imaging as well. CT A/P revealed no obvious metastatic disease
Diarrhea: C diff NEG
R greater trochanteric femur fracture: No surgical intervention required per ortho.
Essential HTN: BB with holding parameters
HLD: Cont statin
Hypokalemia, replete
Hypophosphatemia, replete
Bedbound since November 2024 with intermittent confusion at baseline
DM2: SSI/accuchecks
Concern for vascular dementia
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
Osseous destruction of T8-T9
Splenomegaly
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
Wounds:
-Unstageable sacral pressure injury
-stage I B/L heel pressure injury
-wound care
-Tylenol 1,000mg TID for pain
On 04/21/25 I (Dr. Roman) had an extensive conversation with the patient's sister over the phone. I explained that, considering the extreme degree of an burden of pathology as well as the fact that the patient is clinically not improving, that, in my
opinion, hospice is appropriate. She stated that she and the family are not ready for hospice. I asked if they would consider changing the patient's CODE STATUS to DNR. She stated that the family would let me know by tomorrow.
FULL/Eliquis
Total time spent on today's encounter was 50 minutes which included time spent in counseling the patient/family regarding diagnosis and treatment plan as listed above, goals of care, and symptom management. Case was discussed with nursing staff,
specialists, and care coordinators/case management. All labs and imaging personally reviewed by me. Remainder the time spent in detailed review of previous records, lab data, imaging, and other medical provider documentation.
--- NOTE | 2025-04-22 11:41 | W.CON.PAL ---
Consultation
-
Date/Time Consultation Requested: 04/22
Date/Time Consultation Performed: 04/23
Performing Provider: Nata RAMEY
Reason for Consult: Goals of Care Discussion
Reason for Admission
Illness Course/HPI
59 year old M with history of ESRD on HD, vascular dementia, legally blind. Recent prolonged admission ~2months at OSH for VRE bacteremia and was discharged to [facility] on shelter ABX. Admitted from SNF with AMS.
Upon admission was obtunded. Baseline is AAOx2-3 and able to have a conversation with his sister. In the ED he was hypotensive. Ongoing workup including brain MRI showed multiple acute/subacute infarcts thought to be related to his ongoing AMS. Seen
by neuro who dont believe this is the cause of him being obtunded. He is NPO with a dobhoff with possible plans for a PEG if palliative route is not chosen. New labs this AM show a TSH of 26.5 and T4 of 0.60 that could certainly be contributing to
his mental status. Endo consult is pending
Per chart review, sister endorses a decline recently. He has 2 daughters he is estranged from as well as other sisters. COdestatus was discussed and she is supposed to give a decision on that today as well as try to talk to other family members. Per
review, hospice was brought up and they are not interested in that at this point.
Seen at bedside this AM with no family present. Obtunded and unable to participate in conversation.
Objective Data
-
Objective Data:
Vital Signs
Temp Pulse Resp BP Pulse Ox
98.8 F 78 19 117/61 100
04/22/25 07:28 04/22/25 09:24 04/22/25 06:00 04/22/25 09:24 04/22/25 00:00
Laboratory Results
04/22/25 02:13
04/22/25 02:13
APTT 102.3 Sec (23.4-35.0) H 04/17/25 03:49
Total Protein 5.2 g/dl (6.3-8.2) L 04/22/25 02:13
Albumin 2.7 g/dl (3.5-5.0) L 04/22/25 02:13
Free T4 0.60 ng/dl (0.78-2.19) L 04/21/25 13:38
Urine Color Cancelled 04/10/25 10:03
Urine Clarity Cancelled 04/10/25 10:03
Urine pH Cancelled 04/10/25 10:03
Ur Specific [place] Cancelled 04/10/25 10:03
Urine Ketones Cancelled 04/10/25 10:03
Urine Bilirubin Cancelled 04/10/25 10:03
Palliative Performance Scale
Palliative Performance Scale:
PPS Level Ambulation Activity & Evidence of Disease Self Care Intake Conscious Level
100% Full Normal Activity & Work; Full Intake Full
No Evidence of Disease
90% Full Normal Activity & Work; Full Normal Full
Some Evidence of Disease
80% Full Normal Activity with Effort Full Normal or Full
Some Evidence of Disease Reduced
70% Reduced Unable Normal Job/Work Full Normal or Full
Significant Disease Reduced
60% Reduced Unable Hobby/Housework Occasional Normal or Full or Confusion
Significant Disease Assistance Reduced
50% Mainly Sit/Lie Unable to do Any Work Considerable Normal or Full or Confusion
Extensive Disease Assistance Req'd Reduced
40% Mainly in Bed Unable to do Most Activity Mainly Assistance Normal or Full or Drowsy;
Extensive Disease Reduced +/- Confusion
30% Totally Bed Unable to do Any Activity Total Care Normal or Full or Drowsy;
Bound Extensive Disease Reduced +/- Confusion
20% Totally Bed Bound Unable to do Any Activity Total Care Minimal to Full or Drowsy;
Extensive Disease Sips +/- Confusion
10% Totally Bed Bound Unable to do Any Activity Total Care Mouth Care Drowsy or Coma;
Extensive Disease Only +/- Confusion
0%
PPS Score Level:
Physical Exam
-
General: Appears Chronically Ill and Unresponsive
HEENT: Normocephalic
Cardiac: Regular Rhythm
Skin: Warm
Assessment / Plan
-
Assessment/Plan:
59 year old M with ESRD on HD, recent prolonged course admitted with AMS, multiple acute/subacute strokes. Remains obtunded.
- spoke with patients sister Geovanni. Reports the family is still hoping there is a reversible cause of his mental status. In terms of the feeding tube, would like to hold off on meterman tube for now to assess for improvement. States she is okay with
changing him to DNR/DNI, but will full medical treatment. She is not ready for hospice as she is still hoping for a reversible cause. She is encouraging his daughters to come see him because 'she doesnt know how much longer he will be around.' Seems
realistic that if he does not improve, and remains obtunded, that comfort would be the best option.
change to DNR/DNI, continue medical workup of mental status
Care Reviewed
Data Reviewed
Chest X ray: Report Reviewed
Medical Tests: I reviewed
Reviewed with: Patient, Family and Physician
[2025-04-22 12:45] LABS: Glucose - Point of Care 248 mg/dl (70-99)
--- NOTE | 2025-04-22 14:45 | CM ---
Remains obtunded, MRI/brain with 5 small infarcts, Endocrine consult, IV/Thiamine. 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 Discharge POC: Return to [facility] for resumption of LTC and HD.
[2025-04-22 15:42] LABS: APTT 42.5 Sec (23.4-35.0)
[2025-04-22 15:43] LABS: Hematocrit 25.4 % (39.0-52.0); Hemoglobin 8.3 g/dL (13.0-18.0); Mean Corp Hgb Conc. 32.7 g/dL (33.0-37.0); Mean Corpuscular Volume 89.4 fL (80.0-94.0); Platelet Count 82 10^3/uL (130-400); Red Cell Dist. Width 19.0 % (11.5-14.5)
--- NOTE | 2025-04-22 16:14 | W.PN.ONC ---
Today's Communication / Plan
-
See updated plan
Impression
Impression
Pancytopenia due to acute/chronic illness, splenomegaly could be contributing
peripheral smear without schistocytes reviewed by Dr. Bright 04/18/2025
VRE bacteremia
ESRD on HD
Vascular dementia
CVA
Atrial fibrillation
Plan
Plan
Assess lupus anticoagulant and antiphospholipid antibodies - pending
Monitor CBC
Lupus anticoagulant has returned positive. As such, given the recent apparent CVAs, warfarin would be the preferred anticoagulant. It should be administered under a heparin umbrella. Discussed with primary service. Obviously, his overall
condition is such that a hospice approach also seems appropriate, will defer to other services, as well as the patient's family.
Subjective/Objective
Subjective/Objective
He is obtunded. Examination is unchanged.
Vital Signs:
Vital Signs
Temp Pulse Resp BP Pulse Ox
97.9 F 77 9 117/79 98
04/22/25 11:35 04/22/25 14:00 04/22/25 14:00 04/22/25 14:00 04/22/25 14:00
Lab Results:
Laboratory Data
WBC 6.5 10^3/uL (4.8-10.8) 04/22/25 15:25
Hgb 8.3 g/dL (13.0-18.0) L 04/22/25 15:25
Plt Count 82 10^3/uL (130-400) L 04/22/25 15:25
APTT 42.5 Sec (23.4-35.0) H 04/22/25 15:25
eGFR 27.72 04/22/25 02:13
--- NOTE | 2025-04-22 16:36 | CON.MD ---
Consultation - Medical
-
59 y.o. man with CVA, vascular dementia, ESRD, recent VRE bacteremia and now significantly obtunded without clear acutely precipitating cause. Noted to have TSH over 26 and low FT4. Not consistent with myxedema coma with a free T4 level of 0.6. Also
no bradycardia/ hypothermia that is typical for this. Nonetheless, it would not be helping his mentation. Agree with starting LT4, I would consider lowering the dose of IV LT4 to 50 mcg and rechecking thyroid levels in 4 weeks. Free T4 weekly if he
is still inpatient. PO dose at discharge would be 88-100 mcg. His weight based dose is 100 mcg PO , but unclear if his TFT's in this setting are accurate. Please call with questions.
[2025-04-22] MEDS: CRESTOR 10 MG TUBE (17:46)
[2025-04-22 17:48] LABS: Glucose - Point of Care 236 mg/dl (70-99)
[2025-04-22] MEDS: HEPARIN 25000 UNITS/250 ML IV (17:53)
--- NOTE | 2025-04-22 18:27 | PTCARENOTE ---
Patient continues to be nonverbal, not following commands. COmplete care, NPO. Tolerating tube feeds. Incontinent of bowel. Wounds cared for as per doctors orders.
[2025-04-22] MEDS: DESENEX/MITRAZOL/ZEASORB 1 APPLIC TOPICAL (20:07)
[2025-04-23] VITALS (37 sets, daily range): BP systolic 83–129; BP diastolic 52–112; BMI 18.7
[2025-04-23 00:25] LABS: Glucose - Point of Care 256 mg/dl (70-99)
[2025-04-23 00:34] LABS: APTT 88.6 Sec (23.4-35.0)
[2025-04-23] MEDS: NOVOLOG FLEXPEN-MODERATE RESISTANCE 5 UNITS SC ×3 (01:16→12:03)
--- NOTE | 2025-04-23 04:16 | PTCARENOTE ---
Assumed care for patient overnight. Pt remains obtunded and non-verbal. Pt responsive to tactile. Pt opens eyes occasionally. Heparin gtt running. See worklist. Tube feed at goal w/ flush. DHT in place. Pt in b/l wrist restraints due to attempts to
remove tubes. Pt on room air, pt has periods of apnea. NSR on the monitor. Full CHG bath and linens changed. Wound care done. Q2T. HOB 30 degrees. SCDs. Heels are floated with pillows. Care ongoing, will monitor closely.
[2025-04-23 06:37] LABS: Glucose - Point of Care 256 mg/dl (70-99)
[2025-04-23 06:47] LABS: Hematocrit 23.1 % (39.0-52.0); Hemoglobin 7.5 g/dL (13.0-18.0); Mean Corp Hgb Conc. 32.5 g/dL (33.0-37.0); Mean Corpuscular Volume 89.2 fL (80.0-94.0); Platelet Count 75 10^3/uL (130-400); Red Cell Dist. Width 19.8 % (11.5-14.5)
[2025-04-23 06:53] LABS: APTT 70.8 Sec (23.4-35.0)
[2025-04-23 07:17] LABS: ALT (SGPT) 11 U/L (0-50); AST (SGOT) 16 U/L (17-59); Albumin 2.6 g/dl (3.5-5.0); Alkaline Phosphatase 163 U/L (38-126); Blood Urea Nitrogen 44 mg/dl (9-20); Calcium 8.8 mg/dl (8.4-10.2); Carbon Dioxide 27 mmol/L (22-30); Chloride 97 mmol/L (98-107); Estimated Creatinine Clearance 23 ml/min; Glucose 221 mg/dl (70-99); Potassium 3.6 mmol/L (3.5-5.1); Sodium 130 mmol/L (135-145); Total Protein 5.0 g/dl (6.3-8.2); eGFR 21.60
[2025-04-23] MEDS: SANTYL OINTMENT 1 APPLIC TOPICAL (08:12)
[2025-04-23] MEDS: TYLENOL 1000 MG TUBE ×3 (08:13→22:42)
[2025-04-23] MEDS: DAKIN'S SOLUTION 0.125% 1/4 STRENGTH 1 ML TOPICAL (08:13)
[2025-04-23] MEDS: DESENEX/MITRAZOL/ZEASORB 1 APPLIC TOPICAL ×2 (08:13→20:16)
[2025-04-23] MEDS: LOPRESSOR 50 MG TUBE (08:14)
[2025-04-23] MEDS: BUSPAR 10 MG TUBE ×3 (08:14→22:42)
[2025-04-23] MEDS: LEXAPRO 20 MG TUBE (08:14)
[2025-04-23] MEDS: THERAGRAN 1 TABLET TUBE (08:14)
[2025-04-23] MEDS: PROTONIX IV 40 MG IV (08:14)
[2025-04-23] MEDS: NSS (PRESERVATIVE FREE) 10 ML IV (08:14)
[2025-04-23] MEDS: THIAMINE INJECTION 100 MG IV (08:15)
[2025-04-23] MEDS: VITAMIN B1 TUBE (08:28)
--- NOTE | 2025-04-23 08:51 | W.PN.HOSP.TC ---
Today's Communication/Plan
-
New fever - Chest x-ray, bladder scan, UA if retaining urine, blood cultures, wound eval for sacral wound
Heparin bridge to warfarin for lupus anticoagulant (+) - start warfarin 5mg PO this evening
Levothyroxine 50mcg IV daily per endocrine
Assessment / Plan
Assessment / Plan
59 y/o patient had a prolonged hospitalization at [facility] January 11, 2025 to March 17, 2025 for intractable back pain, catheter associated infection, Klebsiella bacteremia. On long-term IV antibiotics cefepime and daptomycin with HD here
for acute change in mental status. Patient was obtunded on arrival and hypotensive. Baseline intermittently confused and bedbound since November per POA. Able to talk to sister on the phone at baseline.
Imaging:
CT Head- No acute intracranial abnormality noted.There are mild/moderate periventricular and subcortical white matter hypodensities which are nonspecific, however likely sequelae of chronic small vessel ischemic disease.
EEG 04/11/2025--diffuse cortical dysfunction without focal abnormality. No seizures
Echo 04/11/2025--technically difficult study. Normal biventricular size and function without regional WMA. EF 60 to 65%. Aortic sclerosis
Brain MRI 04/13/25-- There are small foci of restricted diffusion involving the bilateral frontoparietal white matter, the left frontal white matter more anteriorly in the right basal ganglia consistent with acute/subacute infarctions. These may be
embolic in nature given the multivessel territory.
Mild atrophy with sequelae of moderate chronic small vessel ischemic disease.
Prominent blooming artifact along the left paramedian parietal lobe which is likely sequelae of prior hemorrhage/hematoma.
CT ab/pelvis with IV contrast 04/15/25 impression:
IMPRESSION:
1. Examination significantly limited as above.
2. Anasarca.
3. Splenomegaly.
4. Atrophic changes bilateral kidneys with extensive cystic change as above.
5. Proctitis, indeterminate etiology.
6. Diffuse wall thickening of the urinary bladder, question outlet obstruction or neurogenic bladder. Small focus of gas within the bladder which could be related to recent catheterization or infection.
7. Recent fracture greater trochanter right femur.
8. Osseous destructive process at the T8-T9 level which is incompletely imaged on this examination.
9. Abnormal lucent and sclerotic appearance of the bones which could be related to renal osteodystrophy.
Hip x-ray 04/17/25 impression: Findings suggesting subacute fracture of the right greater trochanter.
Plan:
# New fever
--101.2
--Chest xray, bladder scan, UA if retaining, ask wound care to eval sacral wound, blood cultures x 2
--Levothyroxine contributing?
--Due to embolic nature of CVA concerns for underlying endocarditis - may need to re-eval ALENA under sedation in the OR.
#Lupus anti-coagulant (+)
-- Likely contributing to hypercoagulable state
-- Start warfarin per heme-onc -nephrology agreeable
-- Started on heparin drip to bridge yesterday, start warfarin 5 mg p.o. this evening.
# Acute metabolic encephalopathy
--Hypotension/polypharmacy/hypovolemia/CVA/myxedema coma?
--EEG without seizures or status
--On lexapro now that dobhoff is in. Cont to hold gabapentin and haldol for AMS
--Patient is still not able to follow directions or answer questions
--Dobhoff placed on 04/18/25 for feeds -scheduled to be taken out tomorrow -continue discussions with family about goals of care
#Hypothyroidism/myedema coma?
--TSH 26.50 and free T4 0.60. Gave 75mcg levothyroxine IV, endocrine consulted for further management recommendations -> Levo 50 mcg IV per endocrine
--AM cortisol wnl. TPO antibody pending
# CVA
--MRI of the brain revealed multiple small foci in bilateral frontotemporal parietal white matter and left frontal white matter anteriorly in the right basal ganglia consistent with acute/subacute infarcts
--Neurology does not believe it is contributing to AMS and there are no treatment options at this point as already on anti-coagulation
--Appears to be embolic in nature
--Appreciate cardiology for ALENA to eval for endocarditis - cardiology will do ALENA once AAO. High risk of aspiration due to obtunded state.
# Pancytopenia
--Anemia likely secondary to chronic kidney disease
--BM biopsy and MM work up was done at [place] - BM biopsy records obtained revealing no BM or genetic mutations
--Heme/onc appreciated for possible eval for TTP - no TTP as no schistocytes and normal LDH
--Transfuse for hg <7
--04/21/25 hg 6.4 -> 1 unit PRBC > hemeoccult (-) no clinical signs of active bleed - okay for anticoagualtion
# ESRD on HD Monday
--Left anterior chest wall HD catheter
--Nephrology appreciated
# Paroxysmal atrial fibrillation
--metoprolol to be switched to IV. Patient is n.p.o. therefore Eliquis was switched to heparin drip -> d/c heparin, switch back to Eliquis with dobhoff in ->Heparin bridge
# Anxiety and depression
--on buspirone 10 mg 3 times daily, Lexapro 10 mg, Haldol 10 mg every 48 hours as needed for agitation as outpatient.
--Currently p.o. medicines are on hold as patient is n.p.o. -> On buspirone and lexapro now with dobhoff
# History of VRE and Klebsiella bacteremia
--Admitted on daptomycin and cefepime transitioned to IV Zosyn per ID -> d/c as records indicate completion of antibiotics at [place] and unclear as to why they were started at [facility]. Cultures have been negative and afebrile - today new
fever
#Metastatic disease?
--Hospital records from [place] revealed concerns for metastatic disease after MRI of spine done. Some proctocolitis of bowels noted on imaging as well.
--CT ab/pelvis revealed no obvious metastatic disease
# Chronic CHF-NOS-on dialysis now
# Elevated troponin - cards evaluated believed to be baseline in setting of ESRD
# Diarrhea -c. diff (-), Ongoing with tube feeds
#Right greater trochanteric femur fracture -No surgical intervention required per ortho
# Hypertension-metoprolol
# Hyperlipidemia-restart statin
# Hypokalemia-replete
# Hypophosphatemia - replete
# Bedbound since November 2024 with intermittent confusion at baseline
# DM- SSI only with accu checks
# Concern for vascular dementia
# Unstageable sacral pressure injury, stage I B/L heel pressure injury-turn patient every 2 hours and also continue with wound care - Tylenol 1,000mg TID for pain
# Amputation of the left toes 1-3
# Osseous destruction of T8-T9
# Splenomegaly
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
DVT prophylaxis-Heparin gtt
Full code
POJack's sister Geovanni. Peace can only stay for 5-7 days. Sister aware and plans to continue conversation with sisters and daughters.
Anticipated Discharge: > 48 hours
Subjective/Interval History
-
Date of Service: April 23, 2025
Remains obtunded and unresponsive. Spiked a fever overnight. No new cough according to nursing. Diarrhea has been an ongoing issue but c.diff negative in the past. The sister did state in the past he has gotten a UTI as he does produce a small
amount of urine and after sitting in the bladder an infection grew.
Objective Data
-
Labs:
Laboratory Results
04/23/25 04/23/25
00:14 06:16
WBC 4.0 L
Hgb 7.5 L
Hct 23.1 L
Plt Count 75 L
APTT 88.6 H 70.8 H
Sodium 130 L
Potassium 3.6
Chloride 97 L
Carbon Dioxide 27
BUN 44 H
Creatinine 3.2 H
Glucose 221 H
Calcium 8.8
Total Bilirubin 0.8
AST 16 L
ALT 11
Alkaline Phosphatase 163 H
Vital Signs:
Vital Signs
Temp Pulse Resp BP Pulse Ox
101.2 F H 86 19 122/62 95
04/23/25 07:30 04/23/25 08:00 04/23/25 08:00 04/23/25 08:00 04/23/25 04:07
I&O
04/22/25 04/23/25 04/24/25
06:59 06:59 06:59
Intake Total 1250 / 1250 1999
Output Total 0 / 0 0 / 0
Balance 1250 / 1250 1999
Review of Systems
-
Unable to obtain full review of systems at this time due to: Dementia and Acuity
Physical Exam
-
General: Appears Chronically Ill
HEENT: Normocephalic
Respiratory: Clear to Auscultation
Cardiac: Regular Rhythm and S1/S2
GI: Soft, Nontender, Nondistended and Normal Bowel Sounds
Musculoskeletal: No Cyanosis and No Edema
Skin: Warm and Dry
Psych: Calm
--- NOTE | 2025-04-23 08:56 | W.PN.ONC2 ---
Today's Communication / Plan
-
.
Impression
Impression
Pancytopenia due to acute/chronic illness, splenomegaly could be contributing
peripheral smear without schistocytes reviewed by Dr. Bright 04/18/2025
VRE bacteremia
ESRD on HD
Vascular dementia
CVA
Atrial fibrillation
Plan
Plan
lupus anticoagulant and antiphospholipid antibodies -positive x1. As such, given the recent apparent CVAs, warfarin would be the preferred anticoagulant. Recommend bridge with UFH vs LMWH. will consider repeat APLS panel in 12 weeks to confirm dx
hospice approach also seems appropriate, will defer to other services, as well as the patient's family.
Monitor CBC
monitor for bleeding
Subjective/Objective
Subjective
Tmax 101.2F, no hypoxia or hypotension
unable or unwilling to answer questions or follow simple commands
Vital Signs:
Vital Signs
Temp Pulse Resp BP Pulse Ox
101.2 F H 86 19 122/62 95
04/23/25 07:30 04/23/25 08:00 04/23/25 08:00 04/23/25 08:00 04/23/25 04:07
Lab Results:
Laboratory Data
WBC 4.0 10^3/uL (4.8-10.8) L 04/23/25 06:16
Hgb 7.5 g/dL (13.0-18.0) L 04/23/25 06:16
Plt Count 75 10^3/uL (130-400) L 04/23/25 06:16
APTT 70.8 Sec (23.4-35.0) H 04/23/25 06:16
eGFR 21.60 04/23/25 06:16
Physical Exam
HEENT: Moist Mucous Membranes and Other (NG for TF); No Jaundice
Pulmonary: Other (unlaboreedd)
GI: Soft
--- NOTE | 2025-04-23 10:39 | WOUNDNOTE ---
WON RN NOTE: Followed up today with resident Bailey Ashley at bedside for worsening sacral ulcer. Appears more sunken in, still can't see base, erythema surrounding ulcere with evolving DTI on edge. Swab culture done per resident request. Discussed
goals of care, agree patient is hospice candidate, family unwilling to make this decision. Will continue with Dakin's moist gauze and Santyl dressing. Patient having frequent bouts of diarrhea states nurse, had loose stool upon exam. Confirmed with
resident can apply internal fecal manager transfusion. Penis ulcers dryer and more defined. MASD in scrotum and perirectal area, barrier cream applied. Turned patient to L semi side lying position, heels intact. air cushion on pillow under calves. Updated
orders, nurse Doris will bring culture to lab and order placed for fecal manager transfusion. Will follow as needed.
--- NOTE | 2025-04-23 10:57 | W.PN.UPDATE ---
Update Note
Progress Note Update
I saw and evaluated the patient. I reviewed the resident�s note and agree with findings and plan as documented in the resident�s note.
59 y/o patient had a prolonged hospitalization at [facility] January 11, 2025 to March 17, 2025 for intractable back pain, catheter associated infection, Klebsiella bacteremia. On long-term IV antibiotics cefepime and daptomycin with HD here
for acute change in mental status. Patient was obtunded on arrival and hypotensive. Baseline intermittently confused and bedbound since November 2024 per POA. Able to talk to sister on the phone at baseline.
Currently not verbal.
Gen: NAD, appears chronically ill, malnourished, cachectic
Eyes: EOMI, no scleral icterus.
Neck: supple.
CV: continues to remain RRR, +S1/S2, 2/6 systolic murmur
Resp: continues to remain CTAB, no rales, wheezes, or rhonchi.
Abd: continues to remain +BS, soft, NT, ND
Skin: No rashes. Sacral ulcer with eschar and surrounding cellulitis, no discharge
Neuro: CN 2-12 intact, non-focal.
Psych: Calm
04/10/25 12:30 Blood/Venous Blood Culture - Final
No Growth - Final Report
04/10/25 10:12 Blood/Venous Blood Culture - Final
No Growth - Final Report
04/13/25 14:55 Feces/Stool C. difficile GDH Antigen & Toxins - Final
Negative for toxigenic C.difficile
04/11/25 04:12 Nose MRSA Screen - Final
Staph aureus MRSA
CT Head: No acute intracranial abnormality noted.There are mild/moderate periventricular and subcortical white matter hypodensities which are nonspecific, however likely sequelae of chronic small vessel ischemic disease.
EEG 04/11/2025: Diffuse cortical dysfunction without focal abnormality. No seizures activity.
Echo 04/11/2025: TDS. EF 60-65%, no RWMA.
MRI brain 04/13/25: There are small foci of restricted diffusion involving the bilateral frontoparietal white matter, the left frontal white matter more anteriorly in the right basal ganglia consistent with acute/subacute infarctions. These may be
embolic in nature given the multivessel territory. Mild atrophy with sequelae of moderate chronic small vessel ischemic disease. Prominent blooming artifact along the left paramedian parietal lobe which is likely sequelae of prior
hemorrhage/hematoma.
CT A/P w/IV contrast 04/15/25:
1. Examination significantly limited as above.
2. Anasarca.
3. Splenomegaly.
4. Atrophic changes bilateral kidneys with extensive cystic change as above.
5. Proctitis, indeterminate etiology.
6. Diffuse wall thickening of the urinary bladder, question outlet obstruction or neurogenic bladder. Small focus of gas within the bladder which could be related to recent catheterization or infection.
7. Recent fracture greater trochanter right femur.
8. Osseous destructive process at the T8-T9 level which is incompletely imaged on this examination.
9. Abnormal lucent and sclerotic appearance of the bones which could be related to renal osteodystrophy.
R Hip x-ray 04/17/25: Findings suggesting subacute fracture of the right greater trochanter.
Acute/subacute CVAs :
-MRI brain above, likely embolic in nature
-Neurology does not believe Acute/subacute CVAs are contributing to AMS/acute metabolic encephalopathy and there are no treatment options at this point as the pt is already on AC
-should continued aggressive care be desired, work up for other causes of hypercoagulable state per heme/onc
-as per cards, no ALENA at this time as too high risk for aspiration with nearly obtunded state
Acute metabolic encephalopathy
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
-started on IV Synthroid, c/s endocrine
-neuro following
-EEG without seizure activity
-Cont to hold gabapentin/haldol
-Dobhoff placed on 04/18/25 for feeds, monitor for re-feeding syndrome. Will discuss PEG tube with sister today.
h/o VRE and Klebsiella bacteremia:
-admitted on daptomycin/cefepime and transitioned to IV Zosyn per ID. Now off abx as per ID as d/c records indicate completion of antibiotics at [place] and unclear as to why they were started at [facility]. Cultures were negative and pt was
afebrile.
-04/23/25AM temp 101.2 F. Initiate septic w/u with BCxs, U/A reflex to Cx, CXR. re-c/s ID. c/s surgery to assess for sacral ulcer debridement.
Pancytopenia:
-anemia likely secondary to chronic kidney disease
-BMBx and MM work up was done at [place] revealing no BM or genetic mutations
-Heme/onc appreciated for possible eval for TTP, no TTP as no schistocytes and normal LDH, antibody panels for other causes of hypercoagulable states pending
-Transfuse for Hb <7 (received 1U pRBCs on 04/21/25)
Other problems:
Elevated troponin, nonischemic myocardial injury and due to underlying ESRD
Chronic HFpEF: cont BB
ESRD: cont HD M/W/F, renal following
PAF: Cont BB/Eliquis
Anxiety/depression: cont Buspar/Lexapro
? Metastatic disease: Hospital records from [place] revealed concerns for metastatic disease after MRI of spine done. Some proctocolitis of bowels noted on imaging as well. CT A/P revealed no obvious metastatic disease
Diarrhea: C diff NEG
R greater trochanteric femur fracture: No surgical intervention required per ortho.
Essential HTN: BB with holding parameters
HLD: Cont statin
Hypokalemia, replete
Hypophosphatemia, replete
Bedbound since November 2024 with intermittent confusion at baseline
DM2: SSI/accuchecks
Concern for vascular dementia
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
Osseous destruction of T8-T9
Splenomegaly
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
Wounds:
-Unstageable sacral pressure injury
-stage I B/L heel pressure injury
-wound care
-Tylenol 1,000mg TID for pain
GOC:
-on 04/21/25 I (Dr. Roman) had an extensive conversation with the patient's sister over the phone. I explained that, considering the extreme degree of an burden of pathology as well as the fact that the patient is clinically not improving, that, in my
opinion, hospice is appropriate. She stated that she and the family are not ready for hospice.
-seen by palliative care
-now DNR
-message left with pt's sister 04/23/25 at 1111
DNR/Eliquis
[2025-04-23] MEDS: RETACRIT 8000 UNITS IV (12:00)
[2025-04-23] MEDS: NOVOLOG FLEXPEN 4 UNITS SC ×2 (12:04→17:46)
[2025-04-23 12:10] LABS: Glucose - Point of Care 280 mg/dl (70-99)
--- NOTE | 2025-04-23 12:57 | W.PN.NEPH.HD ---
Assessment
-
Patient seen on dialysis
Systolic blood pressure around 100
HD via catheter
Mental status poor
This is not related to any underlying uremia as he has been effectively dialyzed
Plasencia catheter was placed for some noted urinary retention
JOSHAU provided for worsening anemia
Progress Note - Hemodialysis
-
Date of Service: April 23, 2025
Duration: 30 minutes and 3 hours
Potassium Bath: 4
Calcium Bath: 2.5
Opti-Dialyzer: 160
Ultrafiltration: Other (1 kg as hemodynamically tolerate)
Blood Flow: 350
Dialysate Flow: 600
Heparin: Heparin infusion
EPO: 8000
--- NOTE | 2025-04-23 13:23 | PTCARENOTE ---
pt febrile this am. physician notified. tylenol given cxr and labs ordered. sacral wound cultured. pt currently on hemodialysis. heparin drip at 1100 units/hr ptt to be redrawn at 1400.bladder scanned for 11mls as urine sample ordered.
--- NOTE | 2025-04-23 14:13 | CON.GS ---
Consultation
-
Date/Time Consultation Performed: 04/23/25
Requesting Provider: Abel
Performing Provider: Catherine
Reason for Consultation: Sacral pressure wound
Medical History
-
Chief Complaint: AMS
History of Present Illness:
59M recently hospitalized from December through February [facility] infection with VRE and klebsiella as well as intractable back pain, id'ed to SNF and presented here for AMS 04/10/25. He has since been evaluated for CVA, imaging suggestive of
acute vs subacute infarct. He has reportedly been bedbound for past 5 months. He has ESRD and is on HD. He is on eliquis at baseline but is now on heparin gtt. GS consulted for sacral pressure wound. He is non responsive but winces in pain when
logrolled. History obtained from sister 'medical decision-maker' though not legally POA and chart.
Past Medical History
Past Medical History: Other (ESRD MWF pafib Eliquis HTN HLD DM PAD toe amputations CHF Anxiety Depression vascular dementia)
Past Surgical History: Other (unable to obtain due to patient condition)
Social History
Alcohol: None
Drug: None
Living: Alf
Employment: Other
Family History
Family History: Other (unable to obtain due to pt condition)
Allergies / Home Medications
Allergy/AdvReac Type Severity Reaction Status Date / Time
losartan Allergy Unknown Verified 04/10/25 22:15
oxycodone Allergy Unknown Verified 04/10/25 22:15
�Medication �Instructions �Recorded �Confirmed �Type
acetaminophen 325 mg tablet 650 mg PO Q6HPRN PRN mild pain 04/10/25 04/10/25 History
(Tylenol)
apixaban 2.5 mg tablet (Eliquis) 2.5 mg PO BID Blood Clot 04/10/25 04/10/25 History
Prevention/Tx
bisacodyl 10 mg rectal suppository 10 mg IN DAILYPRN PRN if no bm 04/10/25 04/10/25 History
(Dulcolax (bisacodyl)) aftr mom
buspirone 10 mg tablet 10 mg PO TID Mental Health/Anxiety 04/10/25 04/10/25 History
cefepime 2 gram solution for 2 g IV MOWEFR Infection 04/10/25 04/10/25 History
injection
daptomycin 500 mg intravenous 470 mg IV MOWEFR Infection 04/10/25 04/10/25 History
solution
docusate sodium 100 mg capsule 100 mg PO DAILY Constipation 04/10/25 04/10/25 History
(Colace)
escitalopram oxalate 20 mg tablet 20 mg PO DAILY Mental 04/10/25 04/10/25 History
(Lexapro) Health/Anxiety
gabapentin 100 mg capsule 100 mg PO TID Pain 04/10/25 04/10/25 History
haloperidol 10 mg tablet 10 mg PO [id number] PRN before 04/10/25 04/10/25 History
dialysis/AGITATION/ANXIETY
insulin lispro 100 unit/mL 1 sliding scale dose SC AC Diabetes 04/10/25 04/10/25 History
subcutaneous pen
magnesium oxide 168 mg PO DAILY Electrolyte 04/10/25 04/10/25 History
Repletion
melatonin 3 mg tablet 6 mg PO HS Sleep 04/10/25 04/10/25 History
metoprolol tartrate 50 mg tablet 50 mg PO BID Heart 04/10/25 04/10/25 History
Disease/Condition
ondansetron HCl 4 mg tablet 4 mg PO Q8HPRN PRN nausea 04/10/25 04/10/25 History
pantoprazole 40 mg tablet,delayed 40 mg PO DAILY Gastrointestinal 04/10/25 04/10/25 History
release (Protonix) Issue
potassium chloride 20 mEq 40 meq PO BID Electrolyte Repletion 04/10/25 04/10/25 History
tablet,extended release
rosuvastatin 10 mg tablet (Crestor) 10 mg PO DAILY High Cholesterol 04/10/25 04/10/25 History
sorbitol 70 % solution 30 ml PO DAILYPRN PRN constipation 04/10/25 04/10/25 History
therapeutic multivitamin 1 tab PO DAILY Supplement 04/10/25 04/10/25 History
thiamine HCl (vitamin B1) 100 mg 100 mg PO DAILY Supplement 04/10/25 04/10/25 History
tablet
Review of Systems
-
A 10 point review of systems was completed, and was negative except as per HPI.
Physical Exam
Vital Signs
Temp Pulse Resp BP Pulse Ox
101.2 F H 86 19 122/62 99
04/23/25 07:30 04/23/25 08:00 04/23/25 08:00 04/23/25 08:00 04/23/25 13:14
04/22/25 04/23/25 04/24/25
06:59 06:59 06:59
Actual Weight 62.341 kg 63.3 kg
Body Mass Index (BMI) 18.7
Lab Results
04/23/25 06:16
04/23/25 06:16
WBC 4.0 10^3/uL (4.8-10.8) L 04/23/25 06:16
Hgb 7.5 g/dL (13.0-18.0) L 04/23/25 06:16
Hct 23.1 % (39.0-52.0) L 04/23/25 06:16
Plt Count 75 10^3/uL (130-400) L 04/23/25 06:16
Abs Immat Gran (auto) 0.0 10^3/uL (0-0.05) 04/15/25 03:48
Neutrophils % 78.2 % (42.2-75.2) H 04/15/25 03:48
Physical Exam
General: Other (cachexia)
Skin: Other (4cm x 4cm white eschar with areas of black necrosis at sacrum, unstageable, no purulence no fluctuance)
Neuro: Awake
Data Reviewed
-
Old Records: Reviewed
Assessment / Plan
-
59M with sacral pressure wound in setting of AMS
The wound would benefit from debridement in the OR if this is aligned with GOC. I do not believe the wound is a significant contributor to his current presentation.
Given his decline over the past year and current state of health I recommended hospice. I spoke with sister Geovanni by phone and explained I did not think he has a meaningful chance of recovery and return to good quality of life. I advised her that
doing surgery for his wound would require stopping heparin, and this could lead to further stroke, and in the post-operative phase when restarting heparin there is a risk of bleeding. She would like to discuss with her sisters before making a
decision about surgery.
[2025-04-23 15:13] LABS: APTT 77.1 Sec (23.4-35.0)
[2025-04-23 15:39] LABS: APTT > 200 Sec (23.4-35.0)
[2025-04-23] MEDS: CRESTOR 10 MG TUBE (17:34)
[2025-04-23] MEDS: LEVOTHROID 50 MCG IV (17:36)
[2025-04-23] MEDS: HEPARIN 25000 UNITS/250 ML IV (17:37)
[2025-04-23] MEDS: NOVOLOG FLEXPEN-MODERATE RESISTANCE SC (17:45)
[2025-04-23 17:53] LABS: Glucose - Point of Care 117 mg/dl (70-99)
[2025-04-23] MEDS: LOPRESSOR TUBE (20:16)
[2025-04-23 20:36] LABS: APTT 83.4 Sec (23.4-35.0)
[2025-04-24] VITALS (24 sets, daily range): BP systolic 90–121; BP diastolic 48–76; BMI 19.2
[2025-04-24 00:01] LABS: Glucose - Point of Care 78 mg/dl (70-99)
[2025-04-24] MEDS: NOVOLOG FLEXPEN-MODERATE RESISTANCE SC (00:54)
[2025-04-24] MEDS: NOVOLOG FLEXPEN SC (01:51)
--- NOTE | 2025-04-24 01:51 | PTCARENOTE ---
Assumed care for patient overnight. Pt mentation is comparable to night prior. Pt afebrile. NSR on the monitor. HR 80s. BP soft. BP of 87/54 MAP 64. TANVIR Donohue made aware. Stat order for Midodrine 5mg via DHT. See MAR. Pt had 8 beats of V-tach
unsustained. TANVIR Donohue notified, orders for mag lab in AM. Blood sugar 78. WELLNESS PROGRAM ADMINISTRATOR holding standing dose of insulin. Heparin gtt cont. TF running. FMS in place. Sacral dressing is clean, dry and intact. Pt tolerating frequent turning and
repositioning.
[2025-04-24 06:10] LABS: Hematocrit 22.8 % (39.0-52.0); Hemoglobin 7.6 g/dL (13.0-18.0); Mean Corp Hgb Conc. 33.3 g/dL (33.0-37.0); Mean Corpuscular Volume 89.4 fL (80.0-94.0); Nucleated Red Blood Cells % 0 % (-); Platelet Count 95 10^3/uL (130-400); Red Cell Dist. Width 20.1 % (11.5-14.5)
[2025-04-24] MEDS: NOVOLOG FLEXPEN 4 UNITS SC ×3 (06:17→17:55)
[2025-04-24] MEDS: NOVOLOG FLEXPEN-MODERATE RESISTANCE 1 UNITS SC ×2 (06:18→12:47)
[2025-04-24 06:25] LABS: INR 1.60; PT 19.6 Sec (11.4-14.6)
[2025-04-24 06:27] LABS: Glucose - Point of Care 192 mg/dl (70-99)
[2025-04-24 06:27] LABS: APTT 90.3 Sec (23.4-35.0)
[2025-04-24 06:55] LABS: Alkaline Phosphatase 180 U/L (38-126); Blood Urea Nitrogen 35 mg/dl (9-20); Calcium 8.8 mg/dl (8.4-10.2); Carbon Dioxide 26 mmol/L (22-30); Chloride 98 mmol/L (98-107); Estimated Creatinine Clearance 30 ml/min; Glucose 171 mg/dl (70-99); Potassium 3.1 mmol/L (3.5-5.1); Sodium 131 mmol/L (135-145); eGFR 29.05
[2025-04-24 06:56] LABS: ALT (SGPT) 12 U/L (0-50); AST (SGOT) 19 U/L (17-59); Albumin 2.5 g/dl (3.5-5.0); Magnesium 1.7 mg/dl (1.6-2.3); Total Protein 5.0 g/dl (6.3-8.2)
[2025-04-24] MEDS: KCL ELIXIR 40 MEQ TUBE (07:49)
[2025-04-24] MEDS: BUSPAR 10 MG TUBE ×3 (07:50→21:01)
[2025-04-24] MEDS: DAKIN'S SOLUTION 0.125% 1/4 STRENGTH 473 ML TOPICAL (07:50)
[2025-04-24] MEDS: LEXAPRO 20 MG TUBE (07:51)
[2025-04-24] MEDS: DESENEX/MITRAZOL/ZEASORB 1 APPLIC TOPICAL ×2 (07:51→21:01)
[2025-04-24] MEDS: LOPRESSOR 50 MG TUBE (07:52)
[2025-04-24] MEDS: NSS (PRESERVATIVE FREE) 10 ML IV (07:53)
[2025-04-24] MEDS: PROTONIX IV 40 MG IV (07:54)
[2025-04-24] MEDS: SANTYL OINTMENT 1 APPLIC TOPICAL (07:55)
[2025-04-24] MEDS: TYLENOL 1000 MG TUBE ×3 (07:56→21:01)
[2025-04-24] MEDS: THERAGRAN 1 TABLET TUBE (07:56)
[2025-04-24] MEDS: VITAMIN B1 100 MG TUBE (07:57)
--- NOTE | 2025-04-24 08:30 | EEG.RPT ---
Electroencephalogram Report
Recording
Date of EE04/23/25
Type of EEG: Routine
Length of EEG recordin minutes
Done with Video Recording: Yes
Patient Status: Inpatient
Recording Conditions: Awake and Drowsy
Hyperventilation Performed: No
Photic Stimulation Performed: Yes
Report
LESS THAN 1 HOUR EEG REPORT
LESS THAN 1 HOUR EEG INTERPRETATION:
Mildly abnormal EEG for age due to diffuse bihemispheric slowing
CLINICAL CORRELATION:
This study was suggestive of mild diffuse cortical dysfunction without focal abnormality. No seizures were recorded.
Clinical correlation is advised.
METHODS:
A 21 channel digitized electroencephalogram (EEG) was performed at the bedside. The 10/20 international system of electrode placement was used with ECG and lateral/vertical eye movements recorded. Persyst QEEG monitoring was performed.
QUALITY OF STUDY:
Fair�poor
ELECTROENCEPHALOGRAPHER IMPRESSION(S):
Background
There was a low�medium amplitude fairly well organized anterior-posterior voltage gradient of theta, rarely alpha frequency
There were no significant asymmetries of background activity noted.
Sleep
Drowsiness present
Photic Stimulation
Failed to activate the record.
ECG
Normal sinus rhythm
--- NOTE | 2025-04-24 10:13 | W.PN.HOSP.TC ---
Today's Communication/Plan
-
Continued goals of care discussion with sister - discuss feeding tube
EEG
Continue heparin drip without starting warfarin bridge pending sisters decision for sacral wound debridement
Right upper extremity ultrasound to rule out DVT for new swelling
Defer decision to start antibiotics to ID
Assessment / Plan
Assessment / Plan
59 y/o patient had a prolonged hospitalization at [facility] January 11, 2025 to March 17, 2025 for intractable back pain, catheter associated infection, Klebsiella bacteremia. On long-term IV antibiotics cefepime and daptomycin with HD here
for acute change in mental status. Patient was obtunded on arrival and hypotensive. Baseline intermittently confused and bedbound since November per POA. Able to talk to sister on the phone at baseline.
Imaging:
CT Head- No acute intracranial abnormality noted.There are mild/moderate periventricular and subcortical white matter hypodensities which are nonspecific, however likely sequelae of chronic small vessel ischemic disease.
EEG 04/11/2025--diffuse cortical dysfunction without focal abnormality. No seizures
Echo 04/11/2025--technically difficult study. Normal biventricular size and function without regional WMA. EF 60 to 65%. Aortic sclerosis
Brain MRI 04/13/25-- There are small foci of restricted diffusion involving the bilateral frontoparietal white matter, the left frontal white matter more anteriorly in the right basal ganglia consistent with acute/subacute infarctions. These may be
embolic in nature given the multivessel territory.
Mild atrophy with sequelae of moderate chronic small vessel ischemic disease.
Prominent blooming artifact along the left paramedian parietal lobe which is likely sequelae of prior hemorrhage/hematoma.
CT ab/pelvis with IV contrast 04/15/25 impression:
IMPRESSION:
1. Examination significantly limited as above.
2. Anasarca.
3. Splenomegaly.
4. Atrophic changes bilateral kidneys with extensive cystic change as above.
5. Proctitis, indeterminate etiology.
6. Diffuse wall thickening of the urinary bladder, question outlet obstruction or neurogenic bladder. Small focus of gas within the bladder which could be related to recent catheterization or infection.
7. Recent fracture greater trochanter right femur.
8. Osseous destructive process at the T8-T9 level which is incompletely imaged on this examination.
9. Abnormal lucent and sclerotic appearance of the bones which could be related to renal osteodystrophy.
Hip x-ray 04/17/25 impression: Findings suggesting subacute fracture of the right greater trochanter.
Plan:
# New fever
--101.7 yesterday, today 100.6
--Chest x-ray reveals possible pneumonia
--Bladder scan yesterday revealed 10 mL -unable to get UA
--Blood cultures pending
--Sacral wound ulcer preliminary gram-negative bacilli -patient previously on long-term antibiotics for Klebsiella bacteremia
--Appreciate ID
--Due to embolic nature of CVA concerns for underlying endocarditis - may need to re-eval ALENA under sedation in the OR.
#New right upper extremities redness and swelling
--Right upper extremity ultrasound to rule out DVT
--Will need IJ if clot noted as left arm has fistula
#Sacral wound
-- Possible source of infection
-- Gram stain gram-negative bacilli
-- General Surgery consulted for possible debridement
-- Continue on heparin until family makes decision regarding surgical debridement
-- Dr. Alexander also discussed goals of care with family
#Lupus anti-coagulant (+)
-- Likely contributing to hypercoagulable state
-- Start warfarin per heme-onc -nephrology agreeable
-- Started on heparin drip to bridge to warfarin 04/22, however decided not to start warfarin yet as possible sacral wound debridement pending family goals of care
# Acute metabolic encephalopathy
--Hypotension/polypharmacy/hypovolemia/CVA/myxedema coma?
--EEG without seizures or status - repeat EEG per neurology
--On levothyroxine 50mcg IV daily per endocrinology
--On lexapro now that dobhoff is in. Cont to hold gabapentin and haldol for AMS
--Patient is still not able to follow directions or answer questions
--Dobhoff placed on 04/18/25 for feeds -scheduled to be taken out tomorrow -continue discussions with family about goals of care
#Hypothyroidism/myedema coma?
--TSH 26.50 and free T4 0.60. Levo 50 mcg IV per endocrine
--AM cortisol wnl. TPO antibody pending
# CVA
--MRI of the brain revealed multiple small foci in bilateral frontotemporal parietal white matter and left frontal white matter anteriorly in the right basal ganglia consistent with acute/subacute infarcts
--Neurology does not believe it is contributing to AMS and there are no treatment options at this point as already on anti-coagulation
--Appears to be embolic in nature
--Appreciate cardiology for ALENA to eval for endocarditis - cardiology will do ALENA once AAO. High risk of aspiration due to obtunded state.
# Pancytopenia
--Anemia likely secondary to chronic kidney disease
--BM biopsy and MM work up was done at [place] - BM biopsy records obtained revealing no BM or genetic mutations
--Heme/onc appreciated for possible eval for TTP - no TTP as no schistocytes and normal LDH
--Transfuse for hg <7
--04/21/25 hg 6.4 -> 1 unit PRBC > hemeoccult (-) no clinical signs of active bleed - okay for anticoagualtion
# ESRD on HD Monday
--Left anterior chest wall HD catheter
--Nephrology appreciated
# Paroxysmal atrial fibrillation
--metoprolol to be switched to IV. Patient is n.p.o. therefore Eliquis was switched to heparin drip -> d/c heparin, switch back to Eliquis with dobhoff in ->Heparin bridge
# Anxiety and depression
--on buspirone 10 mg 3 times daily, Lexapro 10 mg, Haldol 10 mg every 48 hours as needed for agitation as outpatient.
--Currently p.o. medicines are on hold as patient is n.p.o. -> On buspirone and lexapro now with dobhoff
# History of VRE and Klebsiella bacteremia
--Admitted on daptomycin and cefepime transitioned to IV Zosyn per ID -> d/c as records indicate completion of antibiotics at [place] and unclear as to why they were started at [facility]. Cultures have been negative and afebrile - now
febrile
#Metastatic disease?
--Hospital records from [place] revealed concerns for metastatic disease after MRI of spine done. Some proctocolitis of bowels noted on imaging as well.
--CT ab/pelvis revealed no obvious metastatic disease
# Chronic CHF-NOS-on dialysis now
# Elevated troponin - cards evaluated believed to be baseline in setting of ESRD
# Diarrhea -c. diff (-), Ongoing with tube feeds now with rectal trumpet
#Right greater trochanteric femur fracture -No surgical intervention required per ortho
# Hypertension-metoprolol
# Hyperlipidemia-statin
# Hypokalemia-replete
# Hypophosphatemia - replete
# Bedbound since November 2024 with intermittent confusion at baseline
# DM- SSI only with accu checks - now with premeal aspart 4 units as hyperglycemia increased with tube feeds
# Concern for vascular dementia
# Unstageable sacral pressure injury, stage I B/L heel pressure injury-turn patient every 2 hours and also continue with wound care - Tylenol 1,000mg TID for pain
# Amputation of the left toes 1-3
# Osseous destruction of T8-T9
# Splenomegaly
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
DVT prophylaxis-Heparin gtt
Full code
LEA's sister Kris. Hand now in for one week. Sister aware and plans to continue conversation with sisters and daughters. Multiple provide discussed palliative care and hospice with sister. Goals of cares conversation ongoing.
Anticipated Discharge: > 48 hours
Subjective/Interval History
-
Date of Service: April 24, 2025
Increased right upper extremity swelling. Able to open eyes and squeeze fingers on command today.
Objective Data
-
Labs:
Laboratory Results
04/24/25
05:43
WBC 5.5
Hgb 7.6 L
Hct 22.8 L
Plt Count 95 L D
PT 19.6 H
INR 1.60
APTT 90.3 H
Sodium 131 L
Potassium 3.1 L
Chloride 98
Carbon Dioxide 26
BUN 35 H
Creatinine 2.5 H
Glucose 171 H
Calcium 8.8
Total Bilirubin 0.9
AST 19
ALT 12
Alkaline Phosphatase 180 H
Vital Signs:
Vital Signs
Temp Pulse Resp BP Pulse Ox
100.6 F H 92 13 121/67 100
04/24/25 07:31 04/24/25 07:52 04/24/25 06:00 04/24/25 07:52 04/24/25 06:00
I&O
04/23/25 04/24/25 04/25/25
06:59 06:59 06:59
Intake Total 1999 1010 / 1010
Output Total 0 / 0
Balance 1999 1010 / 1010
Review of Systems
-
Unable to obtain full review of systems at this time due to: Dementia and Acuity
Physical Exam
-
General: Appears Chronically Ill
Respiratory: Clear to Auscultation
Cardiac: Regular Rhythm and S1/S2
GI: Soft, Nondistended and Normal Bowel Sounds
Musculoskeletal: No Cyanosis, No Edema and Other (RUE redness and swelling greater than left )
--- NOTE | 2025-04-24 10:47 | W.PN.NEPH.PH ---
Today's Communication / Plan
-
Dialysis tomorrow
Assessment/Plan
-
59M [facility] resident ESRD MWF roxanne Eliquis HTN HLD DM PAD toe amputations CHF Anxiety Depression suspected underlying vascular dementia recent prolonged hospitalization [facility] January 11 to March 17 for intractable back pain catheter
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
arrival with associate severe hypotension systolic 70s. Improved with IVF bolus,
Impression
ESRD MWF [facility]
Sepsis
A-fib
Dementia/AMS
CVA
History of Klebsiella pneumonia due to catheter in December 2024 at [facility]
Plan.
hemodynamically stable , febrile
remains altered, on DHT feeds
Blood pressure controlled on metoprolol
We will maintain JOSHUA on HD for persistent anemia
suspect lupus anticoagulant +ve, heme suggest warfarrin -is ok from renal stand point
HD tomorrow, orders provide
-
-
Date of Service: April 24, 2025
CC / HPI / ROS
-
Chief Complaint:
AMS, ESRD
History of Present Illness:
Anemia persist 7.6 better post pPRBC
BP stable
sodium at 131
End-stage renal disease on Monday dialysis cath
Review of Systems:
The patient not responding does open his eyes but does not follow commands and is in no distress
Catheter
Febrile
Feeding tube
Labs
-
Labs:
WBC 5.5 10^3/uL (4.8-10.8) 04/24/25 05:43
RBC 2.55 10^6/uL (4.70-6.10) L 04/24/25 05:43
Hgb 7.6 g/dL (13.0-18.0) L 04/24/25 05:43
Hct 22.8 % (39.0-52.0) L 04/24/25 05:43
Plt Count 95 10^3/uL (130-400) L D 04/24/25 05:43
Sodium 131 mmol/L (135-145) L 04/24/25 05:43
Potassium 3.1 mmol/L (3.5-5.1) L 04/24/25 05:43
Chloride 98 mmol/L (98-107) 04/24/25 05:43
Carbon Dioxide 26 mmol/L (22-30) 04/24/25 05:43
BUN 35 mg/dl (9-20) H 04/24/25 05:43
Creatinine 2.5 mg/dL (0.7-1.3) H 04/24/25 05:43
eGFR 29.05 04/24/25 05:43
Glucose 171 mg/dl (70-99) H 04/24/25 05:43
Calcium 8.8 mg/dl (8.4-10.2) 04/24/25 05:43
Phosphorus 1.5 mg/dl (2.5-4.5) L 04/20/25 04:29
Albumin 2.5 g/dl (3.5-5.0) L 04/24/25 05:43
Physical Exam
-
Vital Signs:
Vital Signs
Temp Pulse Resp BP Pulse Ox
100.6 F H 92 13 121/67 100
04/24/25 07:31 04/24/25 07:52 04/24/25 06:00 04/24/25 07:52 04/24/25 06:00
Cardiovascular:: Regular rate and rhythm
Respiratory:: Bilateral: Coarse
Lung Excursion:: Normal
Abdomen:: Nontender and Soft
Bowel Sounds:: Normal
Extremity Edema:: None: Bilateral:
Other Findings::
Feeding tube
Poorly respond
--- NOTE | 2025-04-24 10:50 | W.PN.NEURO.1 ---
Today's Communication / Plan
-
Provide thiamine
Discontinue NIH stroke scale
Neuro Assessment/Plan
Assessment
59 year old very ill man with altered mental status, obtunded.
EEG 04/11 generalized slowing; repeated study on 04/23/2025 showed identical findings
brain MRI showing ~5 small acute/subacute appearing infarcts in the right basal ganglia and bilateral white matter
Also extensive white matter leukoaraiosis and atrophy, much more than would be expected at his age suggestive of vascular dementia
Most likely diagnosis at this time is minimally conscious state, previously known as persistent vegetative state most likely due to the combination of metabolic dysfunction, mild anoxic injury, prior sepsis, and acute stroke
Plan
Provide thiamine
Discontinue NIH stroke scale
Will follow as needed
Subjective/Objective
Subjective Data
Date of Service: April 24, 2025
Objective Data
Vital Signs
Temp Pulse Resp BP Pulse Ox
38.1 C H 92 13 121/67 100
04/24/25 07:31 04/24/25 07:52 04/24/25 06:00 04/24/25 07:52 04/24/25 06:00
Lab Results
04/24/25 05:43
04/24/25 05:43
PT 19.6 Sec (11.4-14.6) H 04/24/25 05:43
INR 1.60 04/24/25 05:43
APTT 90.3 Sec (23.4-35.0) H 04/24/25 05:43
Sodium 131 mmol/L (135-145) L 04/24/25 05:43
Potassium 3.1 mmol/L (3.5-5.1) L 04/24/25 05:43
BUN 35 mg/dl (9-20) H 04/24/25 05:43
Glucose 171 mg/dl (70-99) H 04/24/25 05:43
Calcium 8.8 mg/dl (8.4-10.2) 04/24/25 05:43
Phosphorus 1.5 mg/dl (2.5-4.5) L 04/20/25 04:29
Vitamin B12 929 pg/ml (239-931) 04/21/25 13:38
Patient Allergies
losartan Allergy (Verified 04/10/25 22:15)
Unknown
oxycodone Allergy (Verified 04/10/25 22:15)
Unknown
Data Reviewed
-
EEG: Report Reviewed
Labs: Report Reviewed
Reviewed with: Physician and Family (By phone)
Old Records: Summarized
Past History
Past History
ED Past Medical History: Arrthythmia, CVA, HTN, Hypercholesterolemia, Renal failure (On hemodialysis), Psychiatric and Other (Lupus anticoagulant and antiphospholipid antibodies, VRE bacteremia)
ED Past Surgical History: Other (Unknown)
Social History
Tobacco: Non-smoker
Alcohol: None
Drug: None
Personal: Single
Living: retirement
Family History
Family History: Other
Medications
-
Medications:
Generic Name Dose Route Start Last Admin
Trade Name Freq PRN Reason Stop Dose Admin
Acetaminophen 650 mg 04/17/25 10:07 04/17/25 17:59
Acetaminophen 325 Mg Tablet TUBE 05/08/25 20:50 650 mg
Q6HPRN PRN Administration
mild pain
Acetaminophen 1,000 mg 04/18/25 22:00 04/24/25 07:56
Acetaminophen 500 Mg Tablet TUBE 05/16/25 21:59 1,000 mg
TID LAUREN Administration
Albumin Human 12.5 grams 04/25/25 08:00
Albumin 12.5 Grams/50 Ml Bag *For Hemodialysis* IV 04/25/25 23:59
HD-Q1HPRN PRN
SBP < 90 mmHg
Buspirone HCl 10 mg 04/17/25 16:00 04/24/25 07:50
Buspirone 10 Mg Tablet TUBE 05/15/25 15:59 10 mg
TID LAUREN Administration
Collagenase 0 applic 04/12/25 08:00 04/24/25 07:55
Collagenase Ointment 2.5 Gram Jar TOPICAL 05/10/25 07:59 1 applic
DAILY LAUREN Administration
Dextrose 12.5 grams 04/10/25 20:51
Dextrose 50% (0.5 Grams/Ml) 50 Ml Syringe IV 05/08/25 20:50
[id number] PRN
hypoglycemia
Protocol
Epoetin Dipak-epbx 10,000 units 04/25/25 08:00
Epoetin Dipak-Epbx (Retacrit) 10,000 Units/Ml Vial IV 04/25/25 08:01
HD-ONCE ONE
Escitalopram Oxalate 20 mg 04/17/25 11:00 04/24/25 07:51
Escitalopram 20 Mg Tablet TUBE 05/15/25 10:59 20 mg
DAILY LAUREN Administration
Glucagon 1 mg 04/10/25 20:51
Glucagon 1 Mg Vial IM 05/08/25 20:50
PRN PRN
hypoglycemia
Protocol
Heparin Sodium 0 units 04/25/25 08:00
Heparin (1000 Units/Ml) 10,000 Units/10 Ml Vial INTRACATH 04/25/25 08:01
HD-ONCE ONE
Heparin Sodium 25,000 units in 250 mls @ 0 mls/hr 04/22/25 15:15 04/23/25 17:37
Heparin 29841 Units/250 Ml IV 250 mls
PER PROTOCOL LAUREN Administration
Protocol
Per Protocol
Insulin Aspart 0 units 04/11/25 00:00 04/24/25 06:18
Insulin Aspart Moderate Resistance 300 Units/3 Ml Pen.Injctr SC 05/09/25 00:00 1 units
Q6 LAUREN Administration
Protocol
Insulin Aspart 4 units 04/23/25 12:00 04/24/25 06:17
Insulin Aspart (Novolog) 100 Units/Ml 3 Ml Flexpen SC 05/21/25 11:59 4 units
Q6 LAUREN Administration
Levothyroxine Sodium 50 mcg 04/23/25 18:00 04/23/25 17:36
Levothyroxine 100 Mcg (20 Mcg/Ml) Vial IV 05/21/25 17:59 50 mcg
DAILY@1800 LAUREN Administration
Protocol
Mannitol 12.5 grams 04/25/25 08:00
Mannitol 25% (12.5 Grams/50 Ml) Vial IV 04/25/25 23:59
HD-Q1HPRN PRN
SBP < 90 mmHg
Metoprolol Tartrate 50 mg 04/17/25 10:19 04/24/25 07:52
Metoprolol 50 Mg Regular Release Tablet TUBE 05/08/25 20:50 50 mg
BID LAUREN Administration
Miconazole Nitrate 0 applic 04/11/25 08:00 04/24/25 07:51
Miconazole Powder Bottle TOPICAL 05/09/25 07:59 1 applic
BID LAUREN Administration
Multivitamins Therapeutic 1 tablet 04/17/25 10:38 04/24/25 07:56
Multivitamin Tablet TUBE 05/09/25 07:59 1 tablet
DAILY LAUREN Administration
Pantoprazole Sodium 40 mg 04/24/25 08:00 04/24/25 07:54
Pantoprazole Sodium 40 Mg/10 Ml Vial IV 05/22/25 07:59 40 mg
DAILY LAUREN Administration
Rosuvastatin Calcium 10 mg 04/17/25 18:00 04/23/25 17:34
Rosuvastatin (Crestor) 10 Mg Tablet TUBE 05/15/25 17:59 10 mg
QPM LAUREN Administration
Sodium Chloride 0 flush 04/10/25 22:00
Sodium Chloride 0.9% (Flush) Syringe IV 05/08/25 21:59
PER PROTOCOL LAUREN
Sodium Chloride 10 ml 04/10/25 20:51 04/24/25 07:53
Sodium Chloride 0.9% (Preservative Free) 10 Ml Vial IV 05/08/25 20:50 10 ml
DAILY LAUREN Administration
Sodium Hypochlorite 0 ml 04/12/25 08:00 04/24/25 07:50
Dakin's Solution 0.125% (1/4 Strength) 473 Ml Bottle TOPICAL 05/10/25 07:59 473 ml
DAILY LAUREN Administration
Thiamine HCl 100 mg 04/18/25 08:00 04/24/25 07:57
Thiamine 100 Mg Tablet TUBE 05/16/25 07:59 100 mg
DAILY LAUREN Administration
--- NOTE | 2025-04-24 10:53 | W.PN.UPDATE ---
Update Note
Progress Note Update
I saw and evaluated the patient. I reviewed the resident�s note and agree with findings and plan as documented in the resident�s note.
59 y/o patient had a prolonged hospitalization at [facility] January 11, 2025 to March 17, 2025 for intractable back pain, catheter associated infection, Klebsiella bacteremia. On long-term IV antibiotics cefepime and daptomycin with HD here
for acute change in mental status. Patient was obtunded on arrival and hypotensive. Baseline intermittently confused and bedbound since November 2024 per POA. Able to talk to sister on the phone at baseline.
Currently not verbal.
Gen: NAD, appears chronically ill, malnourished, cachectic
Eyes: EOMI, no scleral icterus.
Neck: supple.
CV: continues to remain RRR, +S1/S2, 2/6 systolic murmur
Resp: CTAB, no rales, wheezes, or rhonchi.
Abd: +BS, soft, NT, ND
Skin: No rashes. Sacral ulcer with eschar and surrounding cellulitis, no discharge (as per review of pic taken yesterday)
Neuro: winces to sternal rub, CN 2-12 intact, non-focal.
Psych: Calm
04/23/25 18:00 Sacral Gram Stain - Preliminary
04/10/25 12:30 Blood/Venous Blood Culture - Final
No Growth - Final Report
04/10/25 10:12 Blood/Venous Blood Culture - Final
No Growth - Final Report
04/13/25 14:55 Feces/Stool C. difficile GDH Antigen & Toxins - Final
Negative for toxigenic C.difficile
04/11/25 04:12 Nose MRSA Screen - Final
Staph aureus MRSA
CT Head: No acute intracranial abnormality noted.There are mild/moderate periventricular and subcortical white matter hypodensities which are nonspecific, however likely sequelae of chronic small vessel ischemic disease.
EEG 04/11/2025: Diffuse cortical dysfunction without focal abnormality. No seizures activity.
Echo 04/11/2025: TDS. EF 60-65%, no RWMA.
MRI brain 04/13/25: There are small foci of restricted diffusion involving the bilateral frontoparietal white matter, the left frontal white matter more anteriorly in the right basal ganglia consistent with acute/subacute infarctions. These may be
embolic in nature given the multivessel territory. Mild atrophy with sequelae of moderate chronic small vessel ischemic disease. Prominent blooming artifact along the left paramedian parietal lobe which is likely sequelae of prior
hemorrhage/hematoma.
CT A/P w/IV contrast 04/15/25:
1. Examination significantly limited as above.
2. Anasarca.
3. Splenomegaly.
4. Atrophic changes bilateral kidneys with extensive cystic change as above.
5. Proctitis, indeterminate etiology.
6. Diffuse wall thickening of the urinary bladder, question outlet obstruction or neurogenic bladder. Small focus of gas within the bladder which could be related to recent catheterization or infection.
7. Recent fracture greater trochanter right femur.
8. Osseous destructive process at the T8-T9 level which is incompletely imaged on this examination.
9. Abnormal lucent and sclerotic appearance of the bones which could be related to renal osteodystrophy.
R Hip x-ray 04/17/25: Findings suggesting subacute fracture of the right greater trochanter.
Acute/subacute CVAs :
-MRI brain above, likely embolic in nature
-Neurology does not believe Acute/subacute CVAs are contributing to AMS/acute metabolic encephalopathy and there are no treatment options at this point as the pt is already on AC
-should continued aggressive care be desired, work up for other causes of hypercoagulable state per heme/onc
-as per cards, no ALENA at this time as too high risk for aspiration with nearly obtunded state
Acute metabolic encephalopathy
-Multifactorial due to hypotension, polypharmacy, hypovolemia, (possibly) acute/subacute CVAs, and likely vascular dementia
-started on IV Synthroid, endocrine saw in c/s
-neuro saw in consult and states that currently the pt's diagnosis is
-EEG without seizure activity
-Cont to hold gabapentin/haldol
-Dobhoff placed on 04/18/25 for feeds, monitor for re-feeding syndrome.
-as pt's sister wants to continue aggressive care, consult GI for PEG placement
h/o VRE and Klebsiella bacteremia:
-admitted on daptomycin/cefepime and transitioned to IV Zosyn per ID. Now off abx as per ID as d/c records indicate completion of antibiotics at [place] and unclear as to why they were started at [facility]. Cultures were negative and pt was
afebrile.
-04/23/25AM temp 101.2 F. Septic w/u with BCxs and CXR. Surgery following for possible sacral ulcer debridement. Abx ordered but stopped by ID. Remains febrile.
Pancytopenia:
-anemia likely secondary to chronic kidney disease
-BMBx and MM work up was done at [place] revealing no BM or genetic mutations
-Heme/onc appreciated for possible eval for TTP, no TTP as no schistocytes and normal LDH, antibody panels for other causes of hypercoagulable states pending
-Transfuse for Hb <7 (received 1U pRBCs on 04/21/25)
Other problems:
Elevated troponin, nonischemic myocardial injury and due to underlying ESRD
Chronic HFpEF: cont BB
ESRD: cont HD M/W/F, renal following
PAF: Cont BB/Eliquis
Anxiety/depression: cont Buspar/Lexapro
? Metastatic disease: Hospital records from [place] revealed concerns for metastatic disease after MRI of spine done. Some proctocolitis of bowels noted on imaging as well. CT A/P revealed no obvious metastatic disease
Diarrhea: C diff NEG
R greater trochanteric femur fracture: No surgical intervention required per ortho.
Essential HTN: BB with holding parameters
HLD: Cont statin
Hypokalemia, replete
Hypophosphatemia, replete
Bedbound since November 2024 with intermittent confusion at baseline
DM2: SSI/accuchecks
Concern for vascular dementia
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
Osseous destruction of T8-T9
Splenomegaly
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
Wounds:
-Unstageable sacral pressure injury
-stage I B/L heel pressure injury
-wound care
-Tylenol 1,000mg TID for pain
GOC:
-on 04/21/25 I (Dr. Roman) had an extensive conversation with the patient's sister over the phone. I explained that, considering the extreme degree of an burden of pathology as well as the fact that the patient is clinically not improving, that, in my
opinion, hospice is appropriate. She stated that she and the family are not ready for hospice.
-seen by palliative care who continue to follow
-now DNR
-Pt's sister again updated on 04/23/25. I explained that should she want the patient to have a PEG tube that it will need to be done soon as his Dobbhoff tube can only remain in place 10 to 14 days at most.
-The patient's chance of any meaningful recovery is close to 0%. Hospice has been recommended by multiple specialties.
-discussed with the pt's sister over the phone and she stated definitively that she does not want to stop HD and, therefore, does not want hospice at this point. She would like to pursue PEG tube placement as well as sacral wound debridement.
Overall the patient's prognosis is terminal. Care is approaching futility. As stated above, as the patient's sister would like continued aggressive care we will pursue PEG tube placement as well as sacral wound debridement.
DNR/Eliquis
--- NOTE | 2025-04-24 11:27 | EEG.RPT ---
Electroencephalogram Report
Recording
Date of EE04/23/25
Type of EEG: Routine
Length of EEG recordin minutes
Done with Video Recording: Yes
Patient Status: Inpatient
Recording Conditions: Drowsy
Hyperventilation Performed: No
Photic Stimulation Performed: Yes
Report
LESS THAN 1 HOUR REPORT
LESS THAN 1 HOUR EEG INTERPRETATION:
Severely abnormal EEG for age mild diffuse bihemispheric slowing
CLINICAL CORRELATION:
This study was suggestive of diffuse cortical dysfunction without focal abnormality. No seizures were recorded. If concerns remain regarding seizures, consideration for prolonged EEG recording may be given.
Clinical correlation is advised.
METHODS:
A 21 channel digitized electroencephalogram (EEG) was performed at the bedside. The 10/20 international system of electrode placement was used with ECG and lateral/vertical eye movements recorded. The [employer] quantitative measurement system was
utilized.
QUALITY OF STUDY:
Fair due to muscle and sweat artifacts
ELECTROENCEPHALOGRAPHER IMPRESSION(S):
Background
Medium amplitude poorly organized anterior-posterior voltage gradient of delta maximal activity
There were no significant asymmetries of background activity noted.
Sleep
Drowsiness present
Photic Stimulation
Failed to activate the record
ECG
Normal sinus rhythm
--- NOTE | 2025-04-24 11:28 | W.PN.UPDATE ---
Update Note
Progress Note Update
SPoke with patients sister Geovanni via phone. She is still waiting for neuro to call for update before making any decisions about care moving forward. She is still hopeful that he will make a neurologic recovery. We discussed hospice/comfort care
approach vs restorative. States that she and her sisters are not leaning towards comfort care because they do not want to stop HD. Explained if thats the case, next steps include permanent feeding tube and placement and then a time limited trial to
see how he does over time. She is asking if he can go to a different facility closer to [place], will ask CM to reach out.
Neuro did speak with sister after I spoke with her - does not seem to be leaning towards comfort care. Plan will likely be for PEG placement.
Team updated on conversation
--- NOTE | 2025-04-24 11:53 | W.PN.ID1 ---
Date of Service
Date of Service: April 24, 2025
Today's Communication
Follow temperatures. Await pending cultures. Initiate empiric antibiotics should fevers continue, or definitive antibiotics should cultures turn positive.
Assessment / Plan
Encephalopathy; ongoing
- ?TME ?CVA
Hx VRE / Klebsiella infection
- on dapto / cefepime when arrived from nursing facility.
Unstageable sacral wound
Penile dermal necrosis
Vascular dementia
P A-fib (on Eliquis)
ESRD�HD (MWF)
DM
PAD
CHF
Anxiety/depression
Recommendations:
01/27/25 Bcx: VRE (sensitive to amp, dapto, linezolid)
Klebsiella aerogenes (Sensitive to: t/sulfa, FQ, tobra, gent, pip/tazo, cefepime (<2), ceftaz (4))
Reviewed extensive records from [facility]. According to those records, the patient had VRE and Klebsiella bacteremia (as above) attributed to his dialysis cath, which was changed in mid January. Per his discharge summary, he completed a
course of antibiotics prior to being discharged. He arrived here to [facility] from [facility] on antibiotics (daptomycin / cefepime). Patient appears to have been restarted on antibiotics upon admission to [facility], but for unclear
reasons. Discharge med list from [facility] do not show that any antibiotics were to be continued.
Blood here cx's neg to date.
Antibiotics discontinued 04/16/2025.
Local care to sacral wound. Patient may require debridement. General Surgery to weigh in.
New fevers noted over past 24 hours. Empiric antibiotics held for now, but if they continue, will initiate.
- Potential sources include sacral wound, aspiration pneumonia/pneumonitis, HD line, other
Blood cultures have been obtained and are in process. A wound culture of the sacrum has also been obtained, although should be interpreted cautiously as likely will have growth of superficial colonizing organisms.
����������������������������������������������������������
Chief Complaint
-: Other (Change in mental status, failure to thrive)
Subjective / Review of Systems
Patient seen and examined. Fevers noted over past 24 hours.
Vital Signs / Physical Exam
Vital Signs
Vital Signs
Temp Pulse Resp BP Pulse Ox
100.6 F H 92 13 121/67 100
04/24/25 07:31 04/24/25 07:52 04/24/25 06:00 04/24/25 07:52 04/24/25 06:00
Physical Exam
Constitutional: Chronically Ill and Cachetic
Head: Other (Dobbhoff in place.)
Eyes: No Conjunctival Hemorrhage and Sclera Anicteric
Cardiovascular: Regular Rate and S1/S2
Pulmonary: Clear; Negative Wheezes, Rales or Rhonchi
Gastrointestinal: Soft, Non Tender, Non Distended and Normal Bowel Sounds
Extremities: Negative Edema
Wound: Other (Unstageable sacral wound; dressed. Areas of dermal gangrene noted on penis.)
Neurological: Other (Responsive to touch. Awakens, but not verbal for me.)
Lines: HD Cath (no erythema)
Objective Data
Lab Data
Lab Results
04/24/25 05:43
04/24/25 05:43
PT 19.6 Sec (11.4-14.6) H 04/24/25 05:43
INR 1.60 04/24/25 05:43
APTT 90.3 Sec (23.4-35.0) H 04/24/25 05:43
Estimated Creat Clear 30 ml/min 04/24/25 05:43
Lactic Acid Cancelled 04/10/25 14:15
Total Bilirubin 0.9 mg/dl (0.2-1.3) 04/24/25 05:43
AST 19 U/L (17-59) 04/24/25 05:43
ALT 12 U/L (0-50) 04/24/25 05:43
Alkaline Phosphatase 180 U/L (38-126) H 04/24/25 05:43
Most recent labs reviewed.
Micro Results:
04/23/25 18:00 Wound Culture - Pending
Sacral Gram Stain - Preliminary
04/23/25 18:00 Blood Culture - Pending
Blood/Venous
04/23/25 14:38 Blood Culture - Pending
Blood/Venous
04/10/25 12:30 Blood Culture - Final
Blood/Venous No Growth - Final Report
04/10/25 10:12 Blood Culture - Final
Blood/Venous No Growth - Final Report
04/13/25 14:55 C. difficile GDH Antigen & Toxins - Final
Feces/Stool Negative for toxigenic C.difficile
04/11/25 04:12 MRSA Screen - Final
Nose Staph aureus MRSA
Imaging:
04/09/2025 MRI brain without contrast: There are small foci of restricted diffusion involving the bilateral frontoparietal white matter, the left frontal white matter more anteriorly in the right basal ganglia consistent with acute/subacute
infarctions. These may be embolic in nature given the multivessel territory. Mild atrophy with sequelae of moderate chronic small vessel ischemic disease.
Prominent blooming artifact along the left paramedian parietal lobe which is likely sequelae of prior hemorrhage/hematoma.
Care Review
Plan reviewed with: Physician (Resident)
[2025-04-24 12:15] LABS: Glucose - Point of Care 166 mg/dl (70-99)
--- NOTE | 2025-04-24 12:51 | CON.GI ---
Consultation
-
Date/Time Consultation Requested: 04/24/2025
Date/Time Consultation Performed: 04/24/2025
Requesting Provider: DR. Roman
Performing Provider:
Reason for Consultation: PEG evaluation
Medical History
Chief Complaint / HPI
Chief Complaint: altered mental status
History of Present Illness:
This is a 59-year-old male [facility] resident with ESRD on HD, PAF on Eliquis, HTN, HLD, DM, PAD, toe amputations, CHF, Anxiety, Depression, suspected underlying vascular dementia with recent prolonged hospitalization at [facility] [address] December
to March 17 for intractable back pain and had catheter associated infection VRE and Klebsiella bacteremia and was treated with antibiotics daptomycin and cefepime and was discharged to [facility]. Apparently in [facility] for some reason the
antibiotics were reinitiated although he had completed his course prior to DC from the outside hospital. He was brought into [facility] on 04/10/2025 for altered mental status and has had a prolonged hospital stay with multiple evaluations from
consultants. He was hypotensive on admission which improved with IV hydration. He has had extensive workup and his altered mental status was thought to be related to metabolic encephalopathy, possible mild anoxic injury, recent sepsis and acute
CVA per neurology and he was thought to have possible embolic stroke. He was on Eliquis prior to admission and then he was switched to heparin. He has also been evaluated by hematology for pancytopenia and apparently did have a bone marrow biopsy
at the outside hospital which apparently was unremarkable and it was thought that his pancytopenia was related to recent sepsis and acute illness and also splenomegaly noted on imaging and also he tested positive for lupus anticoagulant and
antiphospholipid antibodies and was recommended warfarin long-term. He also was noted to have a sacral decub and surgery was consulted for evaluation for possible debridement. He also started spiking a fever since yesterday with a Tmax of 101.2
and ID on board and is currently undergoing sepsis workup. the sacral wound cultures came back positive for gram-negative rods. Blood cultures so far have been negative. Chest x-ray suggestive of possible pneumonia. we were consulted to evaluate
for feeding tube. Multiple consultants have recommended evaluation for comfort or hospice care and palliative care is also involved in consultation and they spoke to his 2 sisters but they are not currently agreeable for proceeding with comfort
care and we were consulted for PEG tube placement.
Past Medical History
Past Medical History: Other (PAF (on Eliquis), ESRD-HD (MWF), DM, HTN, HLD,PAD, CHF, Anxiety/depression, Suspected vascular dementia, catheter related sepsis VRE and Klebsiella, legally blind)
Past Surgical History: Other (HD catheter, Amputation left toes 1-3)
Social History
Tobacco: Non-Smoker
Alcohol: Occasional
Living: Assisted
Family History
Family History: Unable to Obtain
Allergies / Home Medications
Allergy/AdvReac Type Severity Reaction Status Date / Time
losartan Allergy Unknown Verified 04/10/25 22:15
oxycodone Allergy Unknown Verified 04/10/25 22:15
�Medication �Instructions �Recorded
acetaminophen 325 mg tablet 650 mg PO Q6HPRN PRN mild pain 04/10/25
(Tylenol)
apixaban 2.5 mg tablet (Eliquis) 2.5 mg PO BID Blood Clot 04/10/25
Prevention/Tx
bisacodyl 10 mg rectal suppository 10 mg MD DAILYPRN PRN if no bm 04/10/25
(Dulcolax (bisacodyl)) aftr mom
buspirone 10 mg tablet 10 mg PO TID Mental Health/Anxiety 04/10/25
cefepime 2 gram solution for 2 g IV MOWEFR Infection 04/10/25
injection
daptomycin 500 mg intravenous 470 mg IV MOWEFR Infection 04/10/25
solution
docusate sodium 100 mg capsule 100 mg PO DAILY Constipation 04/10/25
(Colace)
escitalopram oxalate 20 mg tablet 20 mg PO DAILY Mental 04/10/25
(Lexapro) Health/Anxiety
gabapentin 100 mg capsule 100 mg PO TID Pain 04/10/25
haloperidol 10 mg tablet 10 mg PO [id number] PRN before 04/10/25
dialysis/AGITATION/ANXIETY
insulin lispro 100 unit/mL 1 sliding scale dose SC AC Diabetes 04/10/25
subcutaneous pen
magnesium oxide 168 mg PO DAILY Electrolyte 04/10/25
Repletion
melatonin 3 mg tablet 6 mg PO HS Sleep 04/10/25
metoprolol tartrate 50 mg tablet 50 mg PO BID Heart 04/10/25
Disease/Condition
ondansetron HCl 4 mg tablet 4 mg PO Q8HPRN PRN nausea 04/10/25
pantoprazole 40 mg tablet,delayed 40 mg PO DAILY Gastrointestinal 04/10/25
release (Protonix) Issue
potassium chloride 20 mEq 40 meq PO BID Electrolyte Repletion 04/10/25
tablet,extended release
rosuvastatin 10 mg tablet (Crestor) 10 mg PO DAILY High Cholesterol 04/10/25
sorbitol 70 % solution 30 ml PO DAILYPRN PRN constipation 04/10/25
therapeutic multivitamin 1 tab PO DAILY Supplement 04/10/25
thiamine HCl (vitamin B1) 100 mg 100 mg PO DAILY Supplement 04/10/25
tablet
Review of Systems
-
Unable to obtain full review of systems at this time due to: Patient Non Verbal
Vital Signs
Temp Pulse Resp BP Pulse Ox
100.6 F H 92 13 121/67 100
04/24/25 07:31 04/24/25 07:52 04/24/25 06:00 04/24/25 07:52 04/24/25 06:00
Physical Exam
Exam
General: No Apparent Distress
HEENT: Normocephalic
Respiratory: Other (Decreased breath sounds at the bases with a few rhonchi)
Cardiac: Other (Irregular with systolic murmur)
GI: Soft, Non Tender, Non Distended, Normal Bowel Sounds and Other (He has a fecal management device with brown stool)
Neuro: Other (Awake but not responding to verbal commands or verbal stimuli and not able to answer questions)
Results
WBC 5.5 10^3/uL (4.8-10.8) 04/24/25 05:43
Hgb 7.6 g/dL (13.0-18.0) L 04/24/25 05:43
Hct 22.8 % (39.0-52.0) L 04/24/25 05:43
MCV 89.4 fL (80.0-94.0) 04/24/25 05:43
Plt Count 95 10^3/uL (130-400) L D 04/24/25 05:43
Absolute Neuts (auto) 4.6 10^3/uL (1.4-6.5) 04/24/25 05:43
PT 19.6 Sec (11.4-14.6) H 04/24/25 05:43
INR 1.60 04/24/25 05:43
APTT 90.3 Sec (23.4-35.0) H 04/24/25 05:43
Sodium 131 mmol/L (135-145) L 04/24/25 05:43
Potassium 3.1 mmol/L (3.5-5.1) L 04/24/25 05:43
Chloride 98 mmol/L (98-107) 04/24/25 05:43
Carbon Dioxide 26 mmol/L (22-30) 04/24/25 05:43
BUN 35 mg/dl (9-20) H 04/24/25 05:43
Creatinine 2.5 mg/dL (0.7-1.3) H 04/24/25 05:43
Calcium 8.8 mg/dl (8.4-10.2) 04/24/25 05:43
Total Bilirubin 0.9 mg/dl (0.2-1.3) 04/24/25 05:43
AST 19 U/L (17-59) 04/24/25 05:43
ALT 12 U/L (0-50) 04/24/25 05:43
Alkaline Phosphatase 180 U/L (38-126) H 04/24/25 05:43
Hep Bs Antibody Positive 04/11/25 08:35
Diagnostic Image Results:
04/23/2025 CXR
IMPRESSION:
Mild pulmonary vascular congestion.
Mild hazy opacity in the right lung base, which could represent atelectasis or pneumonia.
04/15/2025 Ct abdomen and pelvis
IMPRESSION:
1. Examination significantly limited as above.
2. Anasarca.
3. Splenomegaly.
4. Atrophic changes bilateral kidneys with extensive cystic change as above.
5. Proctitis, indeterminate etiology.
6. Diffuse wall thickening of the urinary bladder, question outlet obstruction or neurogenic bladder. Small focus of gas within the bladder which could be related to recent catheterization or infection.
7. Recent fracture greater trochanter right femur.
8. Osseous destructive process at the T8-T9 level which is incompletely imaged on this examination.
9. Abnormal lucent and sclerotic appearance of the bones which could be related to renal osteodystrophy.
04/13/2025 MRI brain
IMPRESSION:
There are small foci of restricted diffusion involving the bilateral frontoparietal white matter, the left frontal white matter more anteriorly in the right basal ganglia consistent with acute/subacute infarctions. These may be embolic in nature
given the multivessel territory.
Mild atrophy with sequelae of moderate chronic small vessel ischemic disease.
Prominent blooming artifact along the left paramedian parietal lobe which is likely sequelae of prior hemorrhage/hematoma.
Prior GI Procedures:
EGD: Unknown patient unable to provide information
Colonoscopy: Unknown patient unable to provide information
Assessment / Plan
-
This is a 59-year-old unfortunate male with multiple comorbidities as listed above with altered mental status and currently being evaluated for new onset of fever again since yesterday and recently was treated with prolonged antibiotics for line
related sepsis at outside hospital who was residing at [facility] prior to presenting to [facility]. He also has lupus anticoagulant and antiphospholipid syndrome and currently on heparin and to be transitioned to warfarin. He does have
pancytopenia his INR was 1.6 and his platelets are 95. Patient overall has poor prognosis given that he has not had much improvement in his mentation and is also thought to have possible acute CVA. Overall poor quality of life and would highly
recommend comfort or hospice care but unfortunately sisters are not agreeable for comfort care and were requesting the PEG placement. Will place a call out to sister if she still wants to proceed with feeding tube will schedule if INR and platelet
count is stable over the next 24 to 48 hours.
other medical issues being addressed by medical team
New fever
New right upper extremities redness and swelling
Sacral wound
Acute metabolic encephalopathy
Hypothyroidism/myedema coma?
CVA
Pancytopenia
ESRD on HD Monday
Paroxysmal atrial fibrillation
Anxiety and depression
History of VRE and Klebsiella bacteremia
Chronic CHF
Right greater trochanteric femur fracture -No surgical intervention required per ortho
Hypertension
Hyperlipidemia
vascular dementia
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
Osseous destruction of T8-T9
Splenomegaly
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
Data Reviewed
-
Radiology: Report Reviewed by me
MRI: Report Reviewed by me
-
-
Thank you for consultation and allowing me to participate in the patient's care. Please call the [facility] basis consultant GI physician during the after hours with any questions or concerns.
--- NOTE | 2025-04-24 13:12 | W.PN.UPDATE ---
Update Note
Progress Note Update
Sister Geovanni contacted by phone. She is very concerned that stopping dialysis will accelerate his decline. I advised her that his condition is not reversible, and at this point measures to prolong his life such as feeding tube, wound debridement,
dialysis will only prolong his suffering without offering any meaningful chance at recovery or improvement in quality of life which is currently poor. She plans to visit Thursday 04/26 to see him in person. If comfort measures are not elected, ROSE
carl would coordinate with GI for concurrent PEG placement (if they deem it feasible and reasonable) and sacral wound debridement next week.
--- NOTE | 2025-04-24 13:23 | W.PN.UPDATE ---
Update Note
Progress Note Update
The pt has two children, Esha and Kamryn. As per the pt's sister, Geovanni, the children have deferred medical decision making to her (Geovanni). I have attempted to call both children at the phone numbers listed below. Both Kamryn and Esha did not
answer and both had a mailboxes that were not set up.
Kamryn [phone]
Esha [phone]
--- NOTE | 2025-04-24 14:54 | CM ---
Chart reviewed and patient was admitted from [facility] where patient resides, patient is on HD, per previous notes patient needs Auth from [facility] supervisor case loading left message with Re in admissions at [facility].
Plan; Patient to return to [facility] when stable.
[2025-04-24] MEDS: LEVOTHROID 50 MCG IV (16:49)
[2025-04-24] MEDS: HEPARIN 25000 UNITS/250 ML IV (16:49)
[2025-04-24] MEDS: CRESTOR 10 MG TUBE (17:38)
[2025-04-24 17:45] LABS: Glucose - Point of Care 207 mg/dl (70-99)
[2025-04-24] MEDS: NOVOLOG FLEXPEN-MODERATE RESISTANCE 3 UNITS SC (17:55)
[2025-04-24] MEDS: LOPRESSOR TUBE (20:02)
[2025-04-25] VITALS (34 sets, daily range): BP systolic 85–142; BP diastolic 52–100; BMI 19.3
[2025-04-25 00:30] LABS: Glucose - Point of Care 164 mg/dl (70-99)
[2025-04-25] MEDS: NOVOLOG FLEXPEN-MODERATE RESISTANCE 1 UNITS SC ×3 (01:23→23:54)
[2025-04-25] MEDS: NOVOLOG FLEXPEN 4 UNITS SC ×5 (01:24→23:54)
--- NOTE | 2025-04-25 01:28 | PTCARENOTE ---
Patient lethargic, drowsy, and nonverbal. Pt afebrile. Heparin gtt cont. TF running at goal. FMS in place. Pt wincing when turning side to side. Scheduled Tylenol administered see OCT. Sacral dressing clean, dry, and intact. Frequent turning and
repositioning. Heels floated on a pillow.
[2025-04-25 05:39] LABS: Glucose - Point of Care 157 mg/dl (70-99)
[2025-04-25 05:52] LABS: Hematocrit 20.5 % (39.0-52.0); Hemoglobin 6.8 g/dL (13.0-18.0); Mean Corp Hgb Conc. 33.2 g/dL (33.0-37.0); Mean Corpuscular Volume 89.9 fL (80.0-94.0); Nucleated Red Blood Cells % 0 % (-); Platelet Count 121 10^3/uL (130-400); Red Cell Dist. Width 20.0 % (11.5-14.5)
[2025-04-25 05:54] LABS: APTT 56.0 Sec (23.4-35.0)
[2025-04-25 06:12] LABS: ALT (SGPT) 11 U/L (0-50); AST (SGOT) 15 U/L (17-59); Albumin 2.1 g/dl (3.5-5.0); Alkaline Phosphatase 173 U/L (38-126); Blood Urea Nitrogen 49 mg/dl (9-20); Calcium 8.6 mg/dl (8.4-10.2); Carbon Dioxide 25 mmol/L (22-30); Chloride 101 mmol/L (98-107); Estimated Creatinine Clearance 26 ml/min; Glucose 135 mg/dl (70-99); Potassium 3.2 mmol/L (3.5-5.1); Sodium 130 mmol/L (135-145); Total Protein 4.5 g/dl (6.3-8.2); eGFR 24.31
--- NOTE | 2025-04-25 06:19 | PTCARENOTE ---
Patient hgb 6.8 hct 20.5. TANVIR Selby made aware, order for type and screen, drawn and sent.
--- NOTE | 2025-04-25 07:17 | W.PN.ID1 ---
Date of Service
Date of Service: April 25, 2025
Today's Communication
Observe off antibiotics. See below�
Assessment / Plan
Encephalopathy; ongoing
- ?TME ?CVA
Hx VRE / Klebsiella infection 2* HD cath CLABSI (at OSH)
- Previously on dapto / cefepime when arrived from nursing facility.
- Completed course of therapy
Unstageable sacral wound
Penile dermal necrosis
Vascular dementia
P A-fib (on Eliquis)
ESRD�HD (MWF)
DM
PAD
CHF
Anxiety/depression
Recommendations:
01/27/25 Bcx: VRE (sensitive to amp, dapto, linezolid)
Klebsiella aerogenes (Sensitive to: t/sulfa, FQ, tobra, gent, pip/tazo, cefepime (<2), ceftaz (4))
Reviewed extensive records from [facility]. According to those records, the patient had VRE and Klebsiella bacteremia (as above) attributed to his dialysis cath, which was changed in mid January. Per his discharge summary, he completed a
course of antibiotics prior to being discharged. He arrived here to [facility] from [facility] on antibiotics (daptomycin / cefepime). Patient appears to have been restarted on antibiotics upon admission to [facility], but for unclear
reasons. Discharge med list from [facility] do not show that any antibiotics were to be continued.
Blood here cx's neg to date.
Antibiotics discontinued 04/16/2025.
Local care to sacral wound. Area may require debridement. General surgery to tentatively perform at time of PEG tube.
Fevers noted over past 48 hours. Empiric antibiotics held and fevers seem to abated.
- Potential sources include sacral wound, aspiration pneumonia/pneumonitis, HD line, other
Blood cultures have been obtained and are in process.
A wound culture of the sacrum has also been obtained, although should be interpreted cautiously as likely will have growth of superficial colonizing organisms.
Would continue to hold on empiric antibiotics unless fevers persist, or definitive source of infection identified.
����������������������������������������������������������
Chief Complaint
-: Other (Change in mental status, failure to thrive)
Subjective / Review of Systems
Patient seen and examined. Chart reviewed. Ongoing efforts for determination of goals of care noted. Last fever approximately 24 hours ago. No fevers since. Currently not on antibiotics.
Vital Signs / Physical Exam
Vital Signs
Vital Signs
Temp Pulse Resp BP Pulse Ox
98.2 F 83 16 118/69 100
04/25/25 03:09 04/25/25 06:00 04/25/25 06:00 04/25/25 06:00 04/25/25 06:00
Physical Exam
Constitutional: Chronically Ill and Cachetic
Head: Other (Dobbhoff in place.)
Eyes: No Conjunctival Hemorrhage and Sclera Anicteric
Cardiovascular: Regular Rate and S1/S2
Pulmonary: Clear and Non Labored; Negative Wheezes, Rales or Rhonchi
Gastrointestinal: Soft, Non Tender, Non Distended and Normal Bowel Sounds
Extremities: Negative Edema
Wound: Other (Unstageable sacral wound; dressed. Areas of dermal gangrene noted on penis.)
Neurological: Other (Responsive to touch. Awakens, but not verbal for me.)
Psychological: Calm
Lines: HD Cath (no erythema)
Objective Data
Lab Data
Lab Results
04/25/25 05:30
04/25/25 05:30
PT 19.6 Sec (11.4-14.6) H 04/24/25 05:43
INR 1.60 04/24/25 05:43
APTT 56.0 Sec (23.4-35.0) H 04/25/25 05:30
Estimated Creat Clear 26 ml/min 04/25/25 05:30
Lactic Acid Cancelled 04/10/25 14:15
Total Bilirubin 0.6 mg/dl (0.2-1.3) 04/25/25 05:30
AST 15 U/L (17-59) L 04/25/25 05:30
ALT 11 U/L (0-50) 04/25/25 05:30
Alkaline Phosphatase 173 U/L (38-126) H 04/25/25 05:30
Most recent labs reviewed.
Micro Results:
04/23/25 18:00 Blood Culture - Preliminary
Blood/Venous No Growth in 24 hours- Final report to follow
04/23/25 14:38 Blood Culture - Preliminary
Blood/Venous No Growth in 24 hours- Final report to follow
04/23/25 18:00 Wound Culture - Preliminary
Sacral Gram Stain - Preliminary
04/10/25 12:30 Blood Culture - Final
Blood/Venous No Growth - Final Report
04/10/25 10:12 Blood Culture - Final
Blood/Venous No Growth - Final Report
04/13/25 14:55 C. difficile GDH Antigen & Toxins - Final
Feces/Stool Negative for toxigenic C.difficile
04/11/25 04:12 MRSA Screen - Final
Nose Staph aureus MRSA
Imaging:
04/09/2025 MRI brain without contrast: There are small foci of restricted diffusion involving the bilateral frontoparietal white matter, the left frontal white matter more anteriorly in the right basal ganglia consistent with acute/subacute
infarctions. These may be embolic in nature given the multivessel territory. Mild atrophy with sequelae of moderate chronic small vessel ischemic disease.
Prominent blooming artifact along the left paramedian parietal lobe which is likely sequelae of prior hemorrhage/hematoma.
--- NOTE | 2025-04-25 07:59 | PTCARENOTE ---
Recd pt this AM. PTT low, Hgb 6.8. Will get one unit PRBC during HD at noon. Discussed PTT orders with Dr. Ashley, resident . CAIT to delay nexst PTT until 1600 when HD and transfusion is completed.
[2025-04-25] MEDS: THERAGRAN 1 TABLET TUBE (08:49)
[2025-04-25] MEDS: VITAMIN B1 100 MG TUBE (08:49)
[2025-04-25] MEDS: LEXAPRO 20 MG TUBE (08:49)
[2025-04-25] MEDS: LOPRESSOR TUBE (08:49)
[2025-04-25] MEDS: TYLENOL 1000 MG TUBE ×3 (08:49→21:05)
[2025-04-25] MEDS: BUSPAR 10 MG TUBE ×3 (08:49→21:05)
[2025-04-25] MEDS: SANTYL OINTMENT 1 APPLIC TOPICAL (08:50)
[2025-04-25] MEDS: DAKIN'S SOLUTION 0.125% 1/4 STRENGTH 1 ML TOPICAL (08:50)
[2025-04-25] MEDS: NSS (PRESERVATIVE FREE) 10 ML IV (08:50)
[2025-04-25] MEDS: PROTONIX IV 40 MG IV (08:50)
--- NOTE | 2025-04-25 09:04 | W.PN.HOSP.TC ---
Today's Communication/Plan
-
RUE US pending
1 unit PRBC
HD today
Assessment / Plan
Assessment / Plan
59 y/o patient had a prolonged hospitalization at [facility] January 11, 2025 to March 17, 2025 for intractable back pain, catheter associated infection, Klebsiella bacteremia. On long-term IV antibiotics cefepime and daptomycin with HD here
for acute change in mental status. Patient was obtunded on arrival and hypotensive. Baseline intermittently confused and bedbound since November per POA. Able to talk to sister on the phone at baseline.
Imaging:
CT Head- No acute intracranial abnormality noted.There are mild/moderate periventricular and subcortical white matter hypodensities which are nonspecific, however likely sequelae of chronic small vessel ischemic disease.
EEG 04/11/2025--diffuse cortical dysfunction without focal abnormality. No seizures
Echo 04/11/2025--technically difficult study. Normal biventricular size and function without regional WMA. EF 60 to 65%. Aortic sclerosis
Brain MRI 04/13/25-- There are small foci of restricted diffusion involving the bilateral frontoparietal white matter, the left frontal white matter more anteriorly in the right basal ganglia consistent with acute/subacute infarctions. These may be
embolic in nature given the multivessel territory.
Mild atrophy with sequelae of moderate chronic small vessel ischemic disease.
Prominent blooming artifact along the left paramedian parietal lobe which is likely sequelae of prior hemorrhage/hematoma.
CT ab/pelvis with IV contrast 04/15/25 impression:
IMPRESSION:
1. Examination significantly limited as above.
2. Anasarca.
3. Splenomegaly.
4. Atrophic changes bilateral kidneys with extensive cystic change as above.
5. Proctitis, indeterminate etiology.
6. Diffuse wall thickening of the urinary bladder, question outlet obstruction or neurogenic bladder. Small focus of gas within the bladder which could be related to recent catheterization or infection.
7. Recent fracture greater trochanter right femur.
8. Osseous destructive process at the T8-T9 level which is incompletely imaged on this examination.
9. Abnormal lucent and sclerotic appearance of the bones which could be related to renal osteodystrophy.
Hip x-ray 04/17/25 impression: Findings suggesting subacute fracture of the right greater trochanter.
Plan:
# New fever
--101.7 04/23, 04/24 100.6, today afebrile but remains on tylenol 1000 TID
--Chest x-ray reveals possible pneumonia
--Bladder scan 25mls yesterday -unable to get UA
--Blood cultures prelim (-)
--Sacral wound ulcer preliminary gram-negative bacilli -patient previously on long-term antibiotics for Klebsiella bacteremia
--Okay to observe off antibiotics for now per ID
--Due to embolic nature of CVA concerns for underlying endocarditis - may need to re-eval ALENA under sedation in the OR.
--Appreciate ID
#New right upper extremities redness and swelling
--Right upper extremity ultrasound to rule out DVT pending
--Will need IJ if clot noted as left arm has fistula
#Sacral wound
-- Possible source of infection
-- Gram stain gram-negative bacilli
-- General Surgery consulted for possible debridement
-- Continue on heparin until family makes decision regarding surgical debridement
-- Dr. Alexander also discussed goals of care with family
#Lupus anti-coagulant (+)
-- Likely contributing to hypercoagulable state
-- Start warfarin per heme-onc -nephrology agreeable
-- Started on heparin drip to bridge to warfarin 04/22, however decided not to start warfarin yet as possible sacral wound debridement and PEG tube pending family goals of care
# Acute metabolic encephalopathy
--Hypotension/polypharmacy/hypovolemia/CVA/myxedema coma?
--EEG 04/11 without seizures or status - repeat EEG 04/24 per neurology no seizure activity
--On levothyroxine 50mcg IV daily per endocrinology
--On lexapro now that dobhoff is in. Cont to hold gabapentin and haldol for AMS
--Patient is still not able to follow directions or answer questions
--Dobhoff placed on 04/18/25 for feeds -consulted GI to eval PEG -continue discussions with family about goals of care
#Hypothyroidism/myedema coma?
--TSH 26.50 and free T4 0.60. Levo 50 mcg IV per endocrine
--AM cortisol wnl. TPO antibody pending
# CVA
--MRI of the brain revealed multiple small foci in bilateral frontotemporal parietal white matter and left frontal white matter anteriorly in the right basal ganglia consistent with acute/subacute infarcts
--Neurology does not believe it is contributing to AMS and there are no treatment options at this point as already on anti-coagulation
--Appears to be embolic in nature
--Appreciate cardiology for ALENA to eval for endocarditis - cardiology will do ALENA once AAO. High risk of aspiration due to obtunded state.
# Pancytopenia
--Anemia likely secondary to chronic kidney disease
--BM biopsy and MM work up was done at [place] - BM biopsy records obtained revealing no BM or genetic mutations
--Heme/onc appreciated for possible eval for TTP - no TTP as no schistocytes and normal LDH
--Transfuse for hg <7
--04/21/25 hg 6.4 -> 1 unit PRBC > hemeoccult (-) no clinical signs of active bleed - okay for anticoagualtion
--04/25/25 hg 6.8 -> 1 unit PRBC > hemeoccult (-), HR and BP stable - continue heparin drip and recheck in afternoon
# ESRD on HD Monday
--Left anterior chest wall HD catheter
--Nephrology appreciated
# Paroxysmal atrial fibrillation
--metoprolol to be switched to IV. Patient is n.p.o. therefore Eliquis was switched to heparin drip -> d/c heparin, switch back to Eliquis with dobhoff in ->Heparin bridge
# Anxiety and depression
--on buspirone 10 mg 3 times daily, Lexapro 10 mg, Haldol 10 mg every 48 hours as needed for agitation as outpatient.
--Currently p.o. medicines are on hold as patient is n.p.o. -> On buspirone and lexapro now with dobhoff
# History of VRE and Klebsiella bacteremia
--Admitted on daptomycin and cefepime transitioned to IV Zosyn per ID -> d/c as records indicate completion of antibiotics at [place] and unclear as to why they were started at [facility]. Cultures have been negative and afebrile - now
febrile
#Metastatic disease?
--Hospital records from [place] revealed concerns for metastatic disease after MRI of spine done. Some proctocolitis of bowels noted on imaging as well.
--CT ab/pelvis revealed no obvious metastatic disease
# Chronic CHF-NOS-on dialysis now
# Elevated troponin - cards evaluated believed to be baseline in setting of ESRD
# Diarrhea -c. diff (-), Ongoing with tube feeds now with rectal trumpet
#Right greater trochanteric femur fracture -No surgical intervention required per ortho
# Hypertension-metoprolol
# Hyperlipidemia-statin
# Hypokalemia-replete
# Hypophosphatemia - replete
# Bedbound since November 2024 with intermittent confusion at baseline
# DM- SSI only with accu checks - now with premeal aspart 4 units as hyperglycemia increased with tube feeds
# Concern for vascular dementia
# Unstageable sacral pressure injury, stage I B/L heel pressure injury-turn patient every 2 hours and also continue with wound care - Tylenol 1,000mg TID for pain
# Amputation of the left toes 1-3
# Osseous destruction of T8-T9
# Splenomegaly
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
DVT prophylaxis-Heparin gtt
Full code
POJack's sister Kris. Hand now in for one week. Sister aware and plans to continue conversation with sisters and daughters. Multiple providers discussed palliative care and hospice with sister. Goals of cares conversation ongoing. Currently
appears as if family wants full medical interventions and he will likely get sacral wound debridement and PEG in upcoming week. Sister plans to visit 04/26.
Anticipated Discharge: > 48 hours
Subjective/Interval History
-
Date of Service: April 25, 2025
Communicating with the night team nurses. When asked how he was doing he said 'fine.' When asked if he was in pain he said 'yes.' When asked where he didn't respond. When asked if he knew where he was he said 'no.' Remains obtunded for me this
morning.
Objective Data
-
Labs:
Laboratory Results
04/25/25 04/25/25 04/25/25
05:30 14:00 16:00
WBC 6.2
Hgb 6.8 L* Pending
Hct 20.5 L* Pending
Plt Count 121 L D
APTT 56.0 H Pending
Sodium 130 L
Potassium 3.2 L
Chloride 101
Carbon Dioxide 25
BUN 49 H
Creatinine 2.9 H
Glucose 135 H
Calcium 8.6
Total Bilirubin 0.6
AST 15 L
ALT 11
Alkaline Phosphatase 173 H
Vital Signs:
Vital Signs
Temp Pulse Resp BP Pulse Ox
97.3 F 83 16 118/69 100
04/25/25 07:30 04/25/25 06:00 04/25/25 06:00 04/25/25 06:00 04/25/25 06:00
I&O
04/24/25 04/25/25 04/26/25
06:59 06:59 06:59
Intake Total 1010 / 1010 1000 / 1000
Balance 1010 / 1010 1000 / 1000
Review of Systems
-
Unable to obtain full review of systems at this time due to: Dementia and Acuity
Physical Exam
-
General: Appears Chronically Ill
Respiratory: Clear to Auscultation
Cardiac: Regular Rhythm and S1/S2
GI: Soft, Nondistended and Normal Bowel Sounds
Rectal: Hem Negative
Musculoskeletal: No Cyanosis and No Edema
Psych: Calm
--- NOTE | 2025-04-25 09:39 | W.PN.UPDATE ---
Update Note
Progress Note Update
I saw and evaluated the patient. I reviewed the resident�s note and agree with findings and plan as documented in the resident�s note.
59 y/o patient had a prolonged hospitalization at [facility] January 11, 2025 to March 17, 2025 for intractable back pain, catheter associated infection, Klebsiella bacteremia. On long-term IV antibiotics cefepime and daptomycin with HD here
for acute change in mental status. Patient was obtunded on arrival and hypotensive. Baseline intermittently confused and bedbound since November 2024 per POA. Able to talk to sister on the phone at baseline.
Currently not verbal.
Gen: NAD, appears chronically ill, malnourished, cachectic
Eyes: EOMI, no scleral icterus.
Neck: supple.
CV: RRR, +S1/S2, 2/6 systolic murmur
Resp: CTAB anteriorly, no rales, wheezes, or rhonchi.
Abd: +BS, soft, NT, ND
Skin: No rashes
Neuro: still winces to sternal rub, CN 2-12 intact, non-focal.
Psych: Calm
04/23/25 18:00 Sacral Wound Culture - Preliminary
04/23/25 18:00 Sacral Gram Stain - Preliminary
04/23/25 18:00 Blood/Venous Blood Culture - Preliminary
No Growth in 24 hours- Final report to follow
04/23/25 14:38 Blood/Venous Blood Culture - Preliminary
No Growth in 24 hours- Final report to follow
04/10/25 12:30 Blood/Venous Blood Culture - Final
No Growth - Final Report
04/10/25 10:12 Blood/Venous Blood Culture - Final
No Growth - Final Report
04/13/25 14:55 Feces/Stool C. difficile GDH Antigen & Toxins - Final
Negative for toxigenic C.difficile
04/11/25 04:12 Nose MRSA Screen - Final
Staph aureus MRSA
CT Head: No acute intracranial abnormality noted.There are mild/moderate periventricular and subcortical white matter hypodensities which are nonspecific, however likely sequelae of chronic small vessel ischemic disease.
EEG 04/11/2025: Diffuse cortical dysfunction without focal abnormality. No seizures activity.
Echo 04/11/2025: TDS. EF 60-65%, no RWMA.
MRI brain 04/13/25: There are small foci of restricted diffusion involving the bilateral frontoparietal white matter, the left frontal white matter more anteriorly in the right basal ganglia consistent with acute/subacute infarctions. These may be
embolic in nature given the multivessel territory. Mild atrophy with sequelae of moderate chronic small vessel ischemic disease. Prominent blooming artifact along the left paramedian parietal lobe which is likely sequelae of prior
hemorrhage/hematoma.
CT A/P w/IV contrast 04/15/25:
1. Examination significantly limited as above.
2. Anasarca.
3. Splenomegaly.
4. Atrophic changes bilateral kidneys with extensive cystic change as above.
5. Proctitis, indeterminate etiology.
6. Diffuse wall thickening of the urinary bladder, question outlet obstruction or neurogenic bladder. Small focus of gas within the bladder which could be related to recent catheterization or infection.
7. Recent fracture greater trochanter right femur.
8. Osseous destructive process at the T8-T9 level which is incompletely imaged on this examination.
9. Abnormal lucent and sclerotic appearance of the bones which could be related to renal osteodystrophy.
R Hip x-ray 04/17/25: Findings suggesting subacute fracture of the right greater trochanter.
CXR 04/23: Mild pulmonary vascular congestion. Mild hazy opacity in the right lung base, which could represent atelectasis or pneumonia.
Acute/subacute CVAs :
-MRI brain above, likely embolic in nature
-Neurology does not believe Acute/subacute CVAs are contributing to AMS/acute metabolic encephalopathy and there are no treatment options at this point as the pt is already on AC
-should continued aggressive care be desired, work up for other causes of hypercoagulable state per heme/onc
-as per cards, no ALENA at this time as too high risk for aspiration with nearly obtunded state
Acute metabolic encephalopathy
-Multifactorial due to hypotension, polypharmacy, hypovolemia, (possibly) acute/subacute CVAs, and likely vascular dementia
-started on IV Synthroid, endocrine saw in c/s
-neuro saw in consult and states that currently the pt's diagnosis is
-EEG without seizure activity
-Cont to hold gabapentin/haldol
-Dobhoff placed on 04/18/25 for feeds, monitor for re-feeding syndrome.
-as pt's sister wants to continue aggressive care, GI consulted for PEG placement (likely 04/28)
h/o VRE and Klebsiella bacteremia:
-admitted on daptomycin/cefepime and transitioned to IV Zosyn per ID. Now off abx as per ID as d/c records indicate completion of antibiotics at [place] and unclear as to why they were started at [facility]. Cultures were negative and pt was
afebrile.
-04/23/25AM temp 101.2 F. Septic w/u with BCxs (which are NGTD) and CXR (as above). Surgery following, likely sacral ulcer debridement 04/28. Abx ordered but stopped by ID. Last fever 4AM. Discussed with Dr. Cummins 5AM, cont to observe off abx.
Pancytopenia:
-anemia likely secondary to chronic kidney disease
-BMBx and MM work up was done at [place] revealing no BM or genetic mutations
-Heme/onc appreciated for possible eval for TTP, no TTP as no schistocytes and normal LDH, antibody panels for other causes of hypercoagulable states pending
-Transfuse 1U pRBCs today
Other problems:
Elevated troponin, nonischemic myocardial injury and due to underlying ESRD
Chronic HFpEF: cont BB
ESRD: cont HD M/W/F, renal following
PAF: Cont BB/Eliquis
Anxiety/depression: cont Buspar/Lexapro
? Metastatic disease: Hospital records from [place] revealed concerns for metastatic disease after MRI of spine done. Some proctocolitis of bowels noted on imaging as well. CT A/P revealed no obvious metastatic disease
Diarrhea: C diff NEG
R greater trochanteric femur fracture: No surgical intervention required per ortho.
Essential HTN: BB with holding parameters
HLD: Cont statin
Hypokalemia, replete
Hypophosphatemia, replete
Bedbound since November 2024 with intermittent confusion at baseline
DM2: SSI/accuchecks
Concern for vascular dementia
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
Osseous destruction of T8-T9
Splenomegaly
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
Wounds:
-Unstageable sacral pressure injury, likely wound debridement by surgery 04/28
-stage I B/L heel pressure injury
-wound care
-Tylenol 1,000mg TID for pain
GOC:
-on 04/21/25 I (Dr. Roman) had an extensive conversation with the patient's sister over the phone. I explained that, considering the extreme degree of an burden of pathology as well as the fact that the patient is clinically not improving, that, in my
opinion, hospice is appropriate. She stated that she and the family are not ready for hospice.
-seen by palliative care who continue to follow
-now DNR
-Pt's sister again updated on 04/23/25. I explained that should she want the patient to have a PEG tube that it will need to be done soon as his Dobbhoff tube can only remain in place 10 to 14 days at most.
-The patient's chance of any meaningful recovery is close to 0%. Hospice has been recommended by multiple specialties.
-discussed with the pt's sister over the phone 04/24 and she stated definitively that she does not want to stop HD and, therefore, does not want hospice at this point. She would like to pursue PEG tube placement as well as sacral wound debridement.
Overall the patient's prognosis is terminal. Care is approaching futility. As stated above, as the patient's sister would like continued aggressive care, we will pursue PEG tube placement as well as sacral wound debridement (tentatively 04/28/25).
DNR/SCDs
[2025-04-25 12:43] LABS: Glucose - Point of Care 138 mg/dl (70-99)
[2025-04-25] MEDS: DESENEX/MITRAZOL/ZEASORB 1 APPLIC TOPICAL ×2 (13:23→21:05)
[2025-04-25] MEDS: NOVOLOG FLEXPEN-MODERATE RESISTANCE SC ×2 (13:23→19:10)
[2025-04-25] MEDS: RETACRIT 10000 UNITS IV (13:53)
[2025-04-25] MEDS: HEPARIN INTRACATH (14:57)
[2025-04-25] MEDS: HEPARIN 3600 UNITS INTRACATH (15:24)
--- NOTE | 2025-04-25 15:24 | W.PN.NEPH.HD ---
Assessment
-
pt seen during HD
vitals stable
UF as tolerates
s/p PRBC for anemia, high dose JOSHUA
high k bath for hypokalemia
poor prognosis
Progress Note - Hemodialysis
-
Date of Service: April 25, 2025
Duration: 30 minutes and 3 hours
Potassium Bath: 4
Calcium Bath: 2.5
Opti-Dialyzer: 160
Ultrafiltration: Other (1kg)
Blood Flow: 400
Dialysate Flow: 600
Heparin: no
EPO: [id number]
--- NOTE | 2025-04-25 16:35 | CM ---
Medically complex patient, HD today, plan to return to [facility] when stable, admissions Re [phone].
Plan; Return to [facility] when stable.
[2025-04-25 18:08] LABS: Hematocrit 28.6 % (39.0-52.0); Hemoglobin 9.6 g/dL (13.0-18.0)
[2025-04-25] MEDS: CRESTOR 10 MG TUBE (18:11)
[2025-04-25] MEDS: LEVOTHROID 50 MCG IV (18:11)
[2025-04-25 18:13] LABS: APTT 37.6 Sec (23.4-35.0)
[2025-04-25 18:37] LABS: Glucose - Point of Care 131 mg/dl (70-99)
[2025-04-25] MEDS: HEPARIN 5200 UNITS IV (19:36)
--- NOTE | 2025-04-25 19:50 | PTCARENOTE ---
Pt returned from IR with left IJ triple lumen catheter in place. Heparin drip infusing. Pt's daughter's mother called nursing station again and demanded that her daughter be POA. She was informed that this was not appropriate discussion and call was
ended.
[2025-04-25] MEDS: LOPRESSOR 50 MG TUBE (21:04)
[2025-04-25 23:33] LABS: Glucose - Point of Care 158 mg/dl (70-99)
[2025-04-26] VITALS (24 sets, daily range): BP systolic 90–140; BP diastolic 59–91; BMI 19.0
[2025-04-26 02:01] LABS: APTT 75.2 Sec (23.4-35.0)
[2025-04-26 05:11] LABS: Hematocrit 26.6 % (39.0-52.0); Hemoglobin 8.7 g/dL (13.0-18.0); Mean Corp Hgb Conc. 32.7 g/dL (33.0-37.0); Mean Corpuscular Volume 87.8 fL (80.0-94.0); Platelet Count 165 10^3/uL (130-400); Red Cell Dist. Width 20.5 % (11.5-14.5)
[2025-04-26 05:14] LABS: ALT (SGPT) 12 U/L (0-50); AST (SGOT) 17 U/L (17-59); Albumin 2.5 g/dl (3.5-5.0); Alkaline Phosphatase 242 U/L (38-126); Blood Urea Nitrogen 37 mg/dl (9-20); Calcium 9.5 mg/dl (8.4-10.2); Carbon Dioxide 27 mmol/L (22-30); Chloride 99 mmol/L (98-107); Estimated Creatinine Clearance 35 ml/min; Glucose 136 mg/dl (70-99); Potassium 3.5 mmol/L (3.5-5.1); Sodium 132 mmol/L (135-145); Total Protein 5.1 g/dl (6.3-8.2); eGFR 35.81
--- NOTE | 2025-04-26 05:42 | PTCARENOTE ---
No acute events overnight. Remains on the heparin gtt at 1500 units/hr. Next PTT due at -810. F[address]. Left triple IJ dressing replaced by VAT. Patient alert but unable to follow commands/ make needs known. Will continue to monitor.
[2025-04-26 05:58] LABS: Glucose - Point of Care 144 mg/dl (70-99)
[2025-04-26] MEDS: NOVOLOG FLEXPEN-MODERATE RESISTANCE SC (06:09)
[2025-04-26] MEDS: NOVOLOG FLEXPEN 4 UNITS SC ×4 (06:26→23:59)
--- NOTE | 2025-04-26 07:59 | PTCARENOTE ---
On walking rounds pt is non verbal with Left Triple IJ , heparin infusong at 15 ml/hr. Errol wrist restraints, FMS, anuric, Dubhoff with Nepro at 50ml/hr and 25 ml water flush per hour. Pt has left CW tunneled cath for HD . Pt has a wound on his
Penis and unstageable wound on buttocks. Heel foams in place, Errol UE restrictions. Aspiration precautions. Q 6hr accu check. Pt grimacing does not respond to verbal stimuli. Lungs are diminished on RA. All meds vis Dubhoff.
[2025-04-26 08:18] LABS: APTT 57.2 Sec (23.4-35.0)
--- NOTE | 2025-04-26 08:32 | W.PN.ID1 ---
Date of Service
Date of Service: April 26, 2025
Today's Communication
See below.
Assessment / Plan
Fever - intermittent
New Leukpcytosis
Encephalopathy; ongoing
- ?TME ?CVA
Hx VRE / Klebsiella infection 2* HD cath CLABSI (at OSH)
- Previously on dapto / cefepime when arrived from nursing facility.
- Completed course of therapy
Unstageable sacral wound
Penile dermal necrosis
Vascular dementia
P A-fib (on Eliquis)
ESRD�HD (MWF)
DM
PAD
CHF
Anxiety/depression
Recommendations:
01/27/25 Bcx: VRE (sensitive to amp, dapto, linezolid)
Klebsiella aerogenes (Sensitive to: t/sulfa, FQ, tobra, gent, pip/tazo, cefepime (<2), ceftaz (4))
Reviewed extensive records from [facility]. According to those records, the patient had VRE and Klebsiella bacteremia (as above) attributed to his dialysis cath, which was changed in mid January. Per his discharge summary, he completed a
course of antibiotics prior to being discharged. He arrived here to [facility] from [facility] on antibiotics (daptomycin / cefepime). Patient appears to have been restarted on antibiotics upon admission to [facility], but for unclear
reasons. Discharge med list from [facility] do not show that any antibiotics were to be continued.
Blood here cx's neg to date.
Antibiotics discontinued 04/16/2025.
Local care to sacral wound. Area may require debridement. General surgery to tentatively perform at time of PEG tube.
Fevers recurred last night.
- 04/23 blood cx's neg to date
-04/23 CXR: mild opacity RLL atelectasis vs PNA
-04/23 Sacral wound culture of the sacrum has also been obtained, although should be interpreted cautiously as likely will have growth of superficial colonization
- Fever unlikely due to R cephalic vein thrombus since thrombus deemed chronic
- Potential sources include sacral wound, aspiration pneumonia/pneumonitis, HD line, other
- Repeat blood cx's x 2
- Start Zosyn after blood cx's obtained
����������������������������������������������������������
Chief Complaint
-: Fever and Other (Change in mental status, failure to thrive)
Subjective / Review of Systems
lethargic
Vital Signs / Physical Exam
Vital Signs
Vital Signs
Temp Pulse Resp BP Pulse Ox
99.8 F 84 19 128/82 97
04/26/25 07:53 04/26/25 06:00 04/26/25 06:00 04/26/25 06:00 04/26/25 06:00
Selected Entries
04/25/25
22:29
Temp 101.0 F H
Physical Exam
Constitutional: Chronically Ill and Cachetic
Head: Other (Dobbhoff in place.)
Eyes: No Conjunctival Hemorrhage and Sclera Anicteric
Cardiovascular: Regular Rate and S1/S2
Pulmonary: Clear (anterior lungs) and Non Labored; Negative Wheezes, Rales or Rhonchi
Gastrointestinal: Soft, Non Tender, Non Distended, Normal Bowel Sounds and Other (FMS: light turner stool (on Tube feed))
Extremities: Negative Edema
Wound: Other (Unstageable sacral wound; dressed. Areas of dermal gangrene noted on penis.)
Neurological: Other (Responsive to touch. )
Lines: HD Cath (no erythema)
Objective Data
Lab Data
Lab Results
04/26/25 04:25
04/26/25 04:25
PT 19.6 Sec (11.4-14.6) H 04/24/25 05:43
INR 1.60 04/24/25 05:43
APTT 57.2 Sec (23.4-35.0) H 04/26/25 07:52
Estimated Creat Clear 35 ml/min 04/26/25 04:25
Lactic Acid Cancelled 04/10/25 14:15
Total Bilirubin 0.9 mg/dl (0.2-1.3) 04/26/25 04:25
AST 17 U/L (17-59) 04/26/25 04:25
ALT 12 U/L (0-50) 04/26/25 04:25
Alkaline Phosphatase 242 U/L (38-126) H 04/26/25 04:25
Most recent labs reviewed.
Micro Results:
04/23/25 18:00 Blood Culture - Preliminary
Blood/Venous No Growth in 48 hours- Final report to follow
04/23/25 14:38 Blood Culture - Preliminary
Blood/Venous No Growth in 48 hours- Final report to follow
04/23/25 18:00 Wound Culture - Preliminary
Sacral Gram negative bacilli
Enterococcus species
Streptococcus species
Additional testing on request
Gram Stain - Preliminary
04/10/25 12:30 Blood Culture - Final
Blood/Venous No Growth - Final Report
04/10/25 10:12 Blood Culture - Final
Blood/Venous No Growth - Final Report
04/13/25 14:55 C. difficile GDH Antigen & Toxins - Final
Feces/Stool Negative for toxigenic C.difficile
04/11/25 04:12 MRSA Screen - Final
Nose Staph aureus MRSA
Imaging:
04/09/2025 MRI brain without contrast: There are small foci of restricted diffusion involving the bilateral frontoparietal white matter, the left frontal white matter more anteriorly in the right basal ganglia consistent with acute/subacute
infarctions. These may be embolic in nature given the multivessel territory. Mild atrophy with sequelae of moderate chronic small vessel ischemic disease.
Prominent blooming artifact along the left paramedian parietal lobe which is likely sequelae of prior hemorrhage/hematoma.
[2025-04-26] MEDS: HEPARIN 5200 UNITS IV ×2 (08:54→23:01)
[2025-04-26] MEDS: SANTYL OINTMENT 1 APPLIC TOPICAL (09:01)
[2025-04-26] MEDS: NSS (PRESERVATIVE FREE) 10 ML IV (09:01)
[2025-04-26] MEDS: PROTONIX IV 40 MG IV (09:01)
[2025-04-26] MEDS: TYLENOL 1000 MG TUBE ×3 (09:01→20:54)
[2025-04-26] MEDS: LEXAPRO 20 MG TUBE (09:02)
[2025-04-26] MEDS: DAKIN'S SOLUTION 0.125% 1/4 STRENGTH 473 ML TOPICAL (09:02)
[2025-04-26] MEDS: BUSPAR 10 MG TUBE (09:02)
[2025-04-26] MEDS: DESENEX/MITRAZOL/ZEASORB 1 APPLIC TOPICAL ×2 (09:03→20:55)
[2025-04-26] MEDS: THERAGRAN 1 TABLET TUBE (09:16)
[2025-04-26] MEDS: VITAMIN B1 100 MG TUBE (09:16)
[2025-04-26] MEDS: LOPRESSOR 50 MG TUBE ×2 (09:19→20:55)
[2025-04-26] MEDS: HEPARIN 25000 UNITS/250 ML IV (11:13)
--- NOTE | 2025-04-26 11:55 | W.PN.NEPH.PH ---
Today's Communication / Plan
-
HD on Monday
Assessment/Plan
-
59M [facility] resident ESRD MWF pafib Eliquis HTN HLD DM PAD toe amputations CHF Anxiety Depression suspected underlying vascular dementia recent prolonged hospitalization [facility] January 11 to March 17 for intractable back pain catheter
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
arrival with associate severe hypotension systolic 70s. Improved with IVF bolus,
Impression
ESRD MWF [facility]
Sepsis
A-fib
Dementia/AMS
CVA
History of Klebsiella pneumonia due to catheter in December 2024 at [facility]
Plan:
hemodynamically stable , febrile
tolerating DHT feeds
Blood pressure controlled on metoprolol
We will maintain JOSHUA on HD for persistent anemia
abx per ID
-
-
Date of Service: April 26, 2025
CC / HPI / ROS
-
Chief Complaint:
AMS, ESRD
History of Present Illness:
Anemia better at 8.4 , WBC up at 12.7
BP stable
sodium at 132
End-stage renal disease on Monday dialysis cath
Review of Systems:
The patient not responding does open his eyes but does not follow commands and is in no distress
Catheter
Febrile
Feeding tube
Labs
-
Labs:
WBC 12.7 10^3/uL (4.8-10.8) H 04/26/25 04:25
RBC 3.03 10^6/uL (4.70-6.10) L 04/26/25 04:25
Hgb 8.7 g/dL (13.0-18.0) L 04/26/25 04:25
Hct 26.6 % (39.0-52.0) L 04/26/25 04:25
Plt Count 165 10^3/uL (130-400) D 04/26/25 04:25
Sodium 132 mmol/L (135-145) L 04/26/25 04:25
Potassium 3.5 mmol/L (3.5-5.1) 04/26/25 04:25
Chloride 99 mmol/L (98-107) 04/26/25 04:25
Carbon Dioxide 27 mmol/L (22-30) 04/26/25 04:25
BUN 37 mg/dl (9-20) H 04/26/25 04:25
Creatinine 2.1 mg/dL (0.7-1.3) H 04/26/25 04:25
eGFR 35.81 04/26/25 04:25
Glucose 136 mg/dl (70-99) H 04/26/25 04:25
Calcium 9.5 mg/dl (8.4-10.2) 04/26/25 04:25
Phosphorus 1.5 mg/dl (2.5-4.5) L 04/20/25 04:29
Albumin 2.5 g/dl (3.5-5.0) L 04/26/25 04:25
Physical Exam
-
Vital Signs:
Vital Signs
Temp Pulse Resp BP Pulse Ox
98.6 F 85 18 121/72 97
04/26/25 11:36 04/26/25 10:00 04/26/25 10:00 04/26/25 10:00 04/26/25 09:00
Cardiovascular:: Regular rate and rhythm
Respiratory:: Bilateral: Coarse
Lung Excursion:: Normal
Abdomen:: Nontender and Soft
Bowel Sounds:: Normal
Extremity Edema:: None: Bilateral:
Other Findings::
Feeding tube
Poorly respond
--- NOTE | 2025-04-26 12:44 | W.PN.HOSP.TC ---
Addendum entered and electronically signed by Pedro Contreras MD 04/26/25 15:29:
Discussed with psychiatry who also feels that trial of short acting pain medicines. Patient is more responsive now. Will try 1 dose of oxycodone
Addendum entered and electronically signed by Pedro Contreras MD 04/26/25 13:27:
Seen and examined him independently. Agree with the plan formulated together with the resident
59 y/o patient had a prolonged hospitalization at [facility] January 11, 2025 to March 17, 2025 for intractable back pain, catheter associated infection, Klebsiella bacteremia. On long-term IV antibiotics cefepime and daptomycin with HD here
for acute change in mental status. Patient was obtunded on arrival and hypotensive. Baseline intermittently confused and bedbound since November 2024 per POA. Able to talk to sister on the phone at baseline.
Currently not verbal.
Cardiovascular system S1-S2 appreciated
Chest clear to auscultation
Abdomen soft and nontender
Dobbhoff tube
Unstageable sacral decubitus
Patient wakes up with painful stimulus but does not communicate
04/23/25 18:00 Sacral Wound Culture - Preliminary
04/23/25 18:00 Sacral Gram Stain - Preliminary
CT Head: No acute intracranial abnormality noted.There are mild/moderate periventricular and subcortical white matter hypodensities which are nonspecific, however likely sequelae of chronic small vessel ischemic disease.
EEG 04/11/2025: Diffuse cortical dysfunction without focal abnormality. No seizures activity.
Echo 04/11/2025: TDS. EF 60-65%, no RWMA.
MRI brain 04/13/25: There are small foci of restricted diffusion involving the bilateral frontoparietal white matter, the left frontal white matter more anteriorly in the right basal ganglia consistent with acute/subacute infarctions. These may be
embolic in nature given the multivessel territory. Mild atrophy with sequelae of moderate chronic small vessel ischemic disease. Prominent blooming artifact along the left paramedian parietal lobe which is likely sequelae of prior
hemorrhage/hematoma.
CT A/P w/IV contrast 04/15/25: Limited exam, anasarca, splenomegaly, atrophic bilateral kidneys, proctitis indeterminate etiology, diffuse wall thickening of the urinary bladder outlet obstruction without source neurogenic bladder. Small focus of
gas in the bladder. Recent fracture of greater trochanter of right femur. Osseous destructive process of the T8-T9. Abnormal lucent and sclerotic appearance of the bones likely renal osteodystrophy
R Hip x-ray 04/17/25: Findings suggesting subacute fracture of the right greater trochanter.
CXR 04/23: Mild pulmonary vascular congestion. Mild hazy opacity in the right lung base, which could represent atelectasis or pneumonia.
#Acute/subacute CVAs :
-MRI brain above, likely embolic in nature
-should continued aggressive care be desired, work up for other causes of hypercoagulable state per heme/onc
-as per cards, no ALENA at this time as too high risk for aspiration with nearly obtunded state
#Acute metabolic encephalopathy
-Multifactorial due to hypotension, polypharmacy, hypovolemia, (possibly) acute/subacute CVAs, and likely vascular dementia
-started on IV Synthroid, endocrine saw in c/s
-neuro saw in consult and states that currently the pt's diagnosis is
-EEG without seizure activity
-Cont to hold gabapentin/Haldol
-Dobhoff placed on 04/18/25 for feeds
-As pt's sister wants to continue aggressive care, GI consulted for PEG placement (likely 04/28)
#H/O VRE and Klebsiella bacteremia:
-admitted on daptomycin/cefepime and transitioned to IV Zosyn per ID. Now off abx as per ID as d/c records indicate completion of antibiotics at [facility] and unclear as to why they were started at [facility]. Cultures were negative and pt was
afebrile.
-04/23/25AM temp 101.2 F. Septic w/u with BCxs (which are NGTD) and CXR (as above). Surgery following, likely sacral ulcer debridement 04/28. Abx ordered but stopped by ID.
-Zosyn started today to cover for sacral decubitus ulcer.
-Infectious disease following
#Pancytopenia:
-anemia likely secondary to chronic kidney disease
-BMBx and MM work up was done at [place] revealing no BM or genetic mutations
-Heme/onc appreciated for possible eval for TTP, no TTP as no schistocytes and normal LDH, antibody panels for other causes of hypercoagulable states pending
-Status post 2 units of PRBCs this admission
Thrombocytopenia and leukopenia resolved
# Lupus anticoagulant positive likely contributing to hypercoagulable state. Heparin bridge started. Bridged to warfarin once PEG tube is placed
#Hypothyroidism-started on Synthroid
#Elevated troponin, nonischemic myocardial injury and due to underlying ESRD
#Chronic HFpEF: cont BB
#ESRD: cont HD M/W/F, renal following
#PAF: Cont BB/heparin drip
#Anxiety/depression: cont Buspar/Lexapro. Psychiatric valuation to see if any med adjustments needed
#? Metastatic disease: Hospital records from [place] revealed concerns for metastatic disease after MRI of spine done. Some proctocolitis of bowels noted on imaging as well. CT A/P revealed no obvious metastatic disease
#Diarrhea: C diff NEG
#R greater trochanteric femur fracture: No surgical intervention required per ortho.
#Essential HTN: BB with holding parameters
#HLD: Cont statin
#Hypokalemia, replete prn
#Hypophosphatemia, replete
#Bedbound since November 2024 with intermittent confusion at baseline
#DM2: SSI/accuchecks
#Concern for vascular dementia
#Amputation of the left toes 1-3
#Osseous destruction of T8-T9
#Splenomegaly
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
#Wounds:
-Unstageable sacral pressure injury, likely wound debridement by surgery 04/28
-stage I B/L heel pressure injury
-wound care
-Tylenol 1,000mg TID for pain
# DVT prophylaxis-heparin
# DNR Status now
Original Note:
Today's Communication/Plan
-
Start zosyn
Psych consult
Guarded prognosis. Ongoing goals of care disucssion
Assessment / Plan
Assessment / Plan
59 y/o patient had a prolonged hospitalization at [facility] January 11, 2025 to March 17, 2025 for intractable back pain, catheter associated infection, Klebsiella bacteremia. On long-term IV antibiotics cefepime and daptomycin with HD here
for acute change in mental status. Patient was obtunded on arrival and hypotensive. Baseline intermittently confused and bedbound since November per POA. Able to talk to sister on the phone at baseline.
Imaging:
CT Head- No acute intracranial abnormality noted.There are mild/moderate periventricular and subcortical white matter hypodensities which are nonspecific, however likely sequelae of chronic small vessel ischemic disease.
EEG 04/11/2025--diffuse cortical dysfunction without focal abnormality. No seizures
Echo 04/11/2025--technically difficult study. Normal biventricular size and function without regional WMA. EF 60 to 65%. Aortic sclerosis
Brain MRI 04/13/25-- There are small foci of restricted diffusion involving the bilateral frontoparietal white matter, the left frontal white matter more anteriorly in the right basal ganglia consistent with acute/subacute infarctions. These may be
embolic in nature given the multivessel territory.
Mild atrophy with sequelae of moderate chronic small vessel ischemic disease.
Prominent blooming artifact along the left paramedian parietal lobe which is likely sequelae of prior hemorrhage/hematoma.
CT ab/pelvis with IV contrast 04/15/25 impression:
IMPRESSION:
1. Examination significantly limited as above.
2. Anasarca.
3. Splenomegaly.
4. Atrophic changes bilateral kidneys with extensive cystic change as above.
5. Proctitis, indeterminate etiology.
6. Diffuse wall thickening of the urinary bladder, question outlet obstruction or neurogenic bladder. Small focus of gas within the bladder which could be related to recent catheterization or infection.
7. Recent fracture greater trochanter right femur.
8. Osseous destructive process at the T8-T9 level which is incompletely imaged on this examination.
9. Abnormal lucent and sclerotic appearance of the bones which could be related to renal osteodystrophy.
Hip x-ray 04/17/25 impression: Findings suggesting subacute fracture of the right greater trochanter.
Plan:
Fever
--Febrile overnight, 101F
--source potential pulmonary vs soft sacral wound, vs HD line. CXR as above. Wound cultures positive for gram negative bacilli, enterococcus, streptococcus
--Blood cultures taken. pending
--Sacral wound ulcer preliminary gram-negative bacilli -patient previously on long-term antibiotics for Klebsiella bacteremia
--Zosyn started per ID today
--Due to embolic nature of CVA concerns for underlying endocarditis, ALENA may be needed
--Appreciate ID
Right upper extremity superficial venous thrombus:
- Chronic, per UE venous US
Sacral wound:
-- Possible source of infection
-- Culture with gram negative bacilli, enterococcus, streptococcus
-- General Surgery to do surgical debridement if family chooses to proceed
#Lupus anti-coagulant (+)
-- Likely contributing to hypercoagulable state
-- Remains on heparin with goal to transition to warfarin after potential PEG tube placement and sacral wound debridement, if in line with family's goals
# Acute metabolic encephalopathy
--Ongoing. Secondary to infection/hypotension/polypharmacy/hypovolemia/CVA/myxedema coma?
--EEG 04/11 without seizures or status - repeat EEG 04/24 per neurology no seizure activity
--On levothyroxine 50mcg IV daily per endocrinology
--On lexapro and buspirone by dobhoff.
--Patient is still not able to follow directions or answer questions
--Dobhoff placed on 04/18/25 for feeds -consulted GI to eval PEG -continue discussions with family about goals of care
#Hypothyroidism/myedema coma?
--TSH 26.50 and free T4 0.60. Levo 50 mcg IV per endocrine
--AM cortisol wnl. TPO antibody pending
# CVA
--MRI of the brain revealed multiple small foci in bilateral frontotemporal parietal white matter and left frontal white matter anteriorly in the right basal ganglia consistent with acute/subacute infarcts
--Neurology does not believe it is contributing to AMS and there are no treatment options at this point as already on anti-coagulation
--Appears to be embolic in nature
--Appreciate cardiology for ALENA to eval for endocarditis - cardiology will do ALENA once AAO. High risk of aspiration due to obtunded state.
# Pancytopenia
--Anemia likely secondary to chronic kidney disease
--BM biopsy and MM work up was done at [place] - BM biopsy records obtained revealing no BM or genetic mutations
--Heme/onc appreciated for possible eval for TTP - no TTP as no schistocytes and normal LDH
--1 unit PRBCs on 04/21/25 and 04/25/25 for Hgb <7. No sign of active bleed. Monitor CBC.Transfuse hgb < 7
- continue JOSHUA on HD
# ESRD on HD Monday
--Left anterior chest wall HD catheter
--Appreciate nephro
# Paroxysmal atrial fibrillation
--Metoprolol PO, continue heparin for anticoagulation with potential bridge to Warfarin
# Anxiety and depression
--on buspirone 10 mg 3 times daily, Lexapro 10 mg, Haldol 10 mg every 48 hours as needed for agitation as outpatient.
--Currently p.o. medicines are on hold as patient is n.p.o. -> On buspirone and lexapro now with dobhoff
# History of VRE and Klebsiella bacteremia
--Admitted on daptomycin and cefepime transitioned to IV Zosyn per ID -> d/c as records indicate completion of antibiotics at [facility] [place] and unclear as to why they were started at [facility].
- continue Zosyn given new fever pending blood cultures.
#Metastatic disease?
--Hospital records from [place] revealed concerns for metastatic disease after MRI of spine done. Some proctocolitis of bowels noted on imaging as well.
--CT ab/pelvis revealed no obvious metastatic disease
# Chronic CHF-NOS-on dialysis now
# Elevated troponin - cards evaluated believed to be baseline in setting of ESRD
# Diarrhea -c. diff (-), Ongoing with tube feeds now with rectal trumpet
#Right greater trochanteric femur fracture -No surgical intervention required per ortho
# Hypertension-metoprolol
# Hyperlipidemia-statin
# Electrolyte abnormality: replete as appropriate
# Bedbound since November 2024 with intermittent confusion at baseline: Unclear etiology
# DM- SSI only with accu checks - now with premeal aspart 4 units as hyperglycemia increased with tube feeds
# Unstageable sacral pressure injury, stage I B/L heel pressure injury-turn patient every 2 hours and also continue with wound care - Tylenol 1,000mg TID for pain
# multiple toe amputations
# Osseous destruction of T8-T9
# Splenomegaly
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
DVT prophylaxis-Heparin gtt
Code status: DNR
LEA's sister Kris. Hand now in for one week. Sister aware and plans to continue conversation with sisters and daughters. Multiple providers discussed palliative care and hospice with sister. Goals of cares conversation ongoing. Currently
appears as if family wants full medical interventions and he will likely get sacral wound debridement and PEG in upcoming week. Sister plans to visit today
Anticipated Discharge: > 48 hours
Subjective/Interval History
-
Date of Service: April 26, 2025
Febrile overnight
Objective Data
-
Labs:
Laboratory Results
04/26/25 04/26/25 04/26/25
01:42 04:25 07:52
WBC 12.7 H
Hgb 8.7 L
Hct 26.6 L
Plt Count 165 D
APTT 75.2 H 57.2 H
Sodium 132 L
Potassium 3.5
Chloride 99
Carbon Dioxide 27
BUN 37 H
Creatinine 2.1 H
Glucose 136 H
Calcium 9.5
Total Bilirubin 0.9
AST 17
ALT 12
Alkaline Phosphatase 242 H
04/26/25
14:00
WBC
Hgb
Hct
Plt Count
APTT Pending
Sodium
Potassium
Chloride
Carbon Dioxide
BUN
Creatinine
Glucose
Calcium
Total Bilirubin
AST
ALT
Alkaline Phosphatase
Vital Signs:
Vital Signs
Temp Pulse Resp BP Pulse Ox
98.6 F 85 18 121/72 97
04/26/25 11:36 04/26/25 10:00 04/26/25 10:00 04/26/25 10:00 04/26/25 09:00
I&O
04/25/25 04/26/25 04/27/25
06:59 06:59 06:59
Intake Total 1000 / 1000 1430 / 1430
Balance 1000 / 1000 1430 / 1430
Review of Systems
-
Unable to obtain full review of systems at this time due to: Acuity (encephalopathy. Obbtunded)
Physical Exam
-
General: Other (obtunded)
HEENT: Atraumatic and Anicteric
Respiratory: Clear to Auscultation (anteriorly ); Negative Wheezes, Rales, Rhonchi or Crackles
Cardiac: Regular Rhythm and S1/S2
GI: Soft, Nondistended and Normal Bowel Sounds
Rectal: Brown
Musculoskeletal: No Clubbing, No Cyanosis and No Edema
Neuro: Other (obtunded. Responsive to chest rubs, non-tracking eye movement, lack of protective eye blinking )
[2025-04-26 12:46] LABS: Glucose - Point of Care 209 mg/dl (70-99)
[2025-04-26] MEDS: NOVOLOG FLEXPEN-MODERATE RESISTANCE 3 UNITS SC ×3 (13:11→23:59)
[2025-04-26] MEDS: ZOSYN 50 IV ×2 (14:04→21:02)
--- NOTE | 2025-04-26 14:16 | PTCARENOTE ---
[facility] spoke a few words to them Sister asked if he was in pain and he responded yes. Family loving toward pt.
--- NOTE | 2025-04-26 15:21 | CON.MD ---
Consultation - Medical
-
59 y/o man with DM, CKD on HD 3d/week, Paroxysmal Afib, hyperlipidemia, sacral and heal ulcers,and sepsis found to have elevated TSH of 26.5 being addressed, anemia and elevated Alk Phol. Also by MRI he has acute and subacutre infarctions likely
embolic. Psychiatrically, was started on Lexapro in 2018 when his sister of breast cancer; this was also when he started hemodialysis. He was hospitalized at [facility], then [facility] where he was put on another
course of antibiotics and brought to hospital due to change in mental status. Has been bed-ridden since November 2024.
He has lost over70 lbs. Pale complexion. Is minimally communicative, but somewhat so when asked by me and his sister if he is in pain. Moving head back and forth. Bothered by his dry mouth with thick secretions. Fecal odor in room. Had pulled
his Dubhoff tube so is restrained. Has poor vision due to cataract in one eye and complication of cataract surgery in other. Unclear if he is oriented. Is awake and said hello to his sister when she came into the room per nurse and sister.
Has children who are minimally involved in his life; the mother of his children (were not ) has been contacting him. 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 No known family history of mental illness. His psych probems apparently did not start until
2017 with of sister and decline in health.
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
Brain infarcts could also be contributory and could account for functioning much better on March 23, but declined by April 06 per sister.
Plan: Reduce Lexapro to 10 mg. x 7 days and then D/C
Stop buspirone
Communicated with Dr. Contreras about trial of narcotic for apparent pain; oxycodone allergy noted in chart.
Psychiatry will follow.
[2025-04-26] MEDS: MORPHINE ORAL SOLUTION 5 MG TUBE (15:57)
[2025-04-26 16:56] LABS: APTT 74.2 Sec (23.4-35.0)
[2025-04-26] MEDS: CRESTOR 10 MG TUBE (18:17)
[2025-04-26] MEDS: LEVOTHROID 50 MCG IV (18:20)
[2025-04-26 18:25] LABS: Glucose - Point of Care 212 mg/dl (70-99)
[2025-04-26 22:50] LABS: APTT 59.9 Sec (23.4-35.0)
[2025-04-26 23:46] LABS: Glucose - Point of Care 238 mg/dl (70-99)
[2025-04-27] VITALS (25 sets, daily range): BP systolic 87–143; BP diastolic 41–102; BMI 19.1
[2025-04-27] MEDS: HEPARIN 25000 UNITS/250 ML IV ×2 (02:25→15:31)
--- NOTE | 2025-04-27 04:52 | PTCARENOTE ---
No acute events overnight. Remains on heparin gtt. B/l wrist restraints in place to prevent patient from pulling out dobhoff. Aspiration precautions maintained. FMS in place. IV abx infusing. Plan for HD monday. Will continue to monitor.
[2025-04-27] MEDS: ZOSYN 50 IV ×3 (05:18→21:49)
[2025-04-27 05:41] LABS: Hematocrit 26.7 % (39.0-52.0); Hemoglobin 8.7 g/dL (13.0-18.0); Mean Corp Hgb Conc. 32.6 g/dL (33.0-37.0); Mean Corpuscular Volume 88.7 fL (80.0-94.0); Platelet Count 179 10^3/uL (130-400); Red Cell Dist. Width 20.3 % (11.5-14.5)
[2025-04-27 05:48] LABS: APTT 80.6 Sec (23.4-35.0)
[2025-04-27 06:03] LABS: ALT (SGPT) 12 U/L (0-50); AST (SGOT) 16 U/L (17-59); Albumin 2.3 g/dl (3.5-5.0); Alkaline Phosphatase 226 U/L (38-126); Blood Urea Nitrogen 56 mg/dl (9-20); Calcium 9.8 mg/dl (8.4-10.2); Carbon Dioxide 28 mmol/L (22-30); Chloride 98 mmol/L (98-107); Estimated Creatinine Clearance 28 ml/min; Glucose 149 mg/dl (70-99); Potassium 3.7 mmol/L (3.5-5.1); Sodium 131 mmol/L (135-145); Total Protein 4.8 g/dl (6.3-8.2); eGFR 27.72
[2025-04-27 06:19] LABS: Glucose - Point of Care 184 mg/dl (70-99)
[2025-04-27] MEDS: NOVOLOG FLEXPEN 4 UNITS SC ×3 (06:19→23:24)
[2025-04-27] MEDS: NOVOLOG FLEXPEN-MODERATE RESISTANCE 1 UNITS SC ×2 (06:20→23:24)
--- NOTE | 2025-04-27 09:03 | W.PN.ID1 ---
Date of Service
Date of Service: April 27, 2025
Today's Communication
See below.
Assessment / Plan
GNR bacteremia x 2 sets
Fever - intermittent
New Leukpcytosis, worse
Encephalopathy; ongoing
- ?TME ?CVA
Hx VRE / Klebsiella infection 2* HD cath CLABSI (at OSH)
- Previously on dapto / cefepime when arrived from nursing facility.
- Completed course of therapy
Unstageable sacral wound
Penile dermal necrosis
Vascular dementia
P A-fib (on Eliquis)
ESRD�HD (MWF)
DM
PAD
CHF
Anxiety/depression
Recommendations:
OSH 01/27/25 Bcx: VRE (sensitive to amp, dapto, linezolid)
Klebsiella aerogenes (Sensitive to: t/sulfa, FQ, tobra, gent, pip/tazo, cefepime (<2), ceftaz (4))
Reviewed extensive records from [facility]. According to those records, the patient had VRE and Klebsiella bacteremia (as above) attributed to his dialysis cath, which was changed in mid January. Per his discharge summary, he completed a
course of antibiotics prior to being discharged. He arrived here to [facility] from [facility] on antibiotics (daptomycin / cefepime). Patient appears to have been restarted on antibiotics upon admission to [facility], but for unclear
reasons. Discharge med list from [facility] do not show that any antibiotics were to be continued.
Blood here cx's neg to date.
Antibiotics previously discontinued 04/16/2025.

New Fevers, leukocytosis r
04/23 blood cx's neg to date
-04/23 CXR: mild opacity RLL atelectasis vs PNA
- 04/26/25 blood cx's x 2 GNR.
-04/23 Sacral wound culture of the sacrum has also been obtained, although should be interpreted cautiously as likely will have growth of superficial colonization
Asked micro to work up GNR
- Repeat blood cx's x 2 in am
- Potential sources of bacteremia include sacral wound, HD line.
-Await identification of organism
-Continue Zosyn (d2)
-Local care to sacral wound. Area may require debridement. General surgery to tentatively perform at time of PEG tube.
����������������������������������������������������������
Chief Complaint
-: Fever, Bacteremia and Other (Change in mental status, failure to thrive)
Subjective / Review of Systems
Lethargic
Vital Signs / Physical Exam
Vital Signs
Vital Signs
Temp Pulse Resp BP Pulse Ox
99.1 F 72 18 135/80 100
04/26/25 22:46 04/27/25 06:00 04/27/25 06:00 04/27/25 06:00 04/27/25 06:00
Physical Exam
Constitutional: Chronically Ill
Head: Other (Dobbhoff in place.)
Cardiovascular: Regular Rate and S1/S2
Pulmonary: Clear (anterior lungs) and Non Labored
Gastrointestinal: Soft, Non Tender, Non Distended, Normal Bowel Sounds and Other (FMS: dark brown liquid stool)
Extremities: Negative Edema
Wound: Other (Unstageable sacral wound; dressed. Areas of dermal gangrene noted on penis.)
Neurological: Other (Responsive to touch. )
Lines: HD Cath (no erythema)
Objective Data
Lab Data
Lab Results
04/27/25 05:24
04/27/25 05:24
PT 19.6 Sec (11.4-14.6) H 04/24/25 05:43
INR 1.60 04/24/25 05:43
APTT 80.6 Sec (23.4-35.0) H 04/27/25 05:24
Estimated Creat Clear 28 ml/min 04/27/25 05:24
Lactic Acid Cancelled 04/10/25 14:15
Total Bilirubin 0.8 mg/dl (0.2-1.3) 04/27/25 05:24
AST 16 U/L (17-59) L 04/27/25 05:24
ALT 12 U/L (0-50) 04/27/25 05:24
Alkaline Phosphatase 226 U/L (38-126) H 04/27/25 05:24
Most recent labs reviewed.
Micro Results:
04/26/25 10:15 Blood Culture - Preliminary
Blood/Venous Positive culture in progress
Gram Stain - Preliminary
04/26/25 11:09 Blood Culture - Preliminary
Blood/Venous Positive culture in progress
Gram Stain - Preliminary
04/23/25 14:38 Blood Culture - Preliminary
Blood/Venous Positive culture in progress
Gram Stain - Preliminary
04/23/25 18:00 Blood Culture - Preliminary
Blood/Venous No Growth in 72 hours- Final report to follow
04/23/25 18:00 Wound Culture - Final
Sacral Gram negative bacilli
Enterococcus species
Streptococcus species
Additional testing on request
Gram Stain - Final
04/10/25 12:30 Blood Culture - Final
Blood/Venous No Growth - Final Report
04/10/25 10:12 Blood Culture - Final
Blood/Venous No Growth - Final Report
04/13/25 14:55 C. difficile GDH Antigen & Toxins - Final
Feces/Stool Negative for toxigenic C.difficile
04/11/25 04:12 MRSA Screen - Final
Nose Staph aureus MRSA
Imaging:
04/09/2025 MRI brain without contrast: There are small foci of restricted diffusion involving the bilateral frontoparietal white matter, the left frontal white matter more anteriorly in the right basal ganglia consistent with acute/subacute
infarctions. These may be embolic in nature given the multivessel territory. Mild atrophy with sequelae of moderate chronic small vessel ischemic disease.
Prominent blooming artifact along the left paramedian parietal lobe which is likely sequelae of prior hemorrhage/hematoma.
--- NOTE | 2025-04-27 09:20 | W.PN.UPDATE ---
Update Note
Progress Note Update
No PEG placement until patient is fever free for 48hrs.
Currently with gram negative bacteremia and he can continue dobhoff feeds until infection is controlled.
[2025-04-27] MEDS: SANTYL OINTMENT 1 APPLIC TOPICAL (09:46)
--- NOTE | 2025-04-27 09:46 | W.PN.UPDATE ---
Update Note
Progress Note Update
Seen for follow-up after recommendation of use of pain medication for apparent pain. He was given 5 mg. of MS per tube which he tolerated well. Also stopped buspirone and began 1 week taper of Lexapro to rule out these as contributing to him being
obtunded.
Seen in room. co founder and president was also present. He was sleeping peacefully. Could be aroused with sternal stimulation, but not communicative at all, even with gestures.
Per discussion with resident, Psychiatry will sign off. Please feel free to reconsult if we can be helpful with the medically complex man.
[2025-04-27] MEDS: TYLENOL 1000 MG TUBE ×3 (09:47→20:01)
[2025-04-27] MEDS: PROTONIX IV 40 MG IV ×2 (09:47)
[2025-04-27] MEDS: LEXAPRO 10 MG TUBE (09:47)
[2025-04-27] MEDS: VITAMIN B1 100 MG TUBE (09:47)
[2025-04-27] MEDS: NSS (PRESERVATIVE FREE) 10 ML IV (09:48)
[2025-04-27] MEDS: DESENEX/MITRAZOL/ZEASORB 1 APPLIC TOPICAL ×2 (09:48→20:02)
[2025-04-27] MEDS: DAKIN'S SOLUTION 0.125% 1/4 STRENGTH 473 ML TOPICAL (09:49)
[2025-04-27] MEDS: LOPRESSOR 50 MG TUBE ×2 (10:50→20:01)
[2025-04-27] MEDS: THERAGRAN 1 TABLET TUBE (10:51)
[2025-04-27 12:06] LABS: Glucose - Point of Care 140 mg/dl (70-99)
[2025-04-27 12:35] LABS: APTT 66.7 Sec (23.4-35.0)
[2025-04-27] MEDS: NOVOLOG FLEXPEN SC (12:39)
[2025-04-27] MEDS: HEPARIN 2600 UNITS IV (12:50)
[2025-04-27] MEDS: NOVOLOG FLEXPEN-MODERATE RESISTANCE SC (12:57)
--- NOTE | 2025-04-27 13:05 | W.PN.NEPH.PH ---
Today's Communication / Plan
-
HD tomorrow
Assessment/Plan
-
59M [facility] resident ESRD MWF pafib Eliquis HTN HLD DM PAD toe amputations CHF Anxiety Depression suspected underlying vascular dementia recent prolonged hospitalization [facility] January 11 to March 17 for intractable back pain catheter
associated infection VR and Klebsiella bacteremia (following which he was discharged to [facility] with longterm IV abx Cefipime and Daptomycin to be given with HD- sent by SNF for evaluation AMS, normally AOx3 at baseline, essentially obtunded on
arrival with associate severe hypotension systolic 70s. Improved with IVF bolus,
Impression
ESRD MWF [facility]
Sepsis
A-fib
Dementia/AMS
CVA
History of Klebsiella pneumonia due to catheter in December 2024 at [facility]
Plan:
hemodynamically stable , febrile
tolerating DHT feeds
Blood pressure controlled on metoprolol
We will maintain JOSHUA on HD for persistent anemia
abx per ID, bld cx growing GNR
note he has CVC
HD MWF
-
-
Date of Service: April 27, 2025
CC / HPI / ROS
-
Chief Complaint:
AMS, ESRD
History of Present Illness:
Anemia stable at 8.4 , WBC up at 13.2
BP stable
sodium at 131
End-stage renal disease on Monday dialysis cath
Review of Systems:
The patient not responding does open his eyes but does not follow commands and is in no distress
Catheter
Febrile
Feeding tube
Labs
-
Labs:
WBC 13.2 10^3/uL (4.8-10.8) H 04/27/25 05:24
RBC 3.01 10^6/uL (4.70-6.10) L 04/27/25 05:24
Hgb 8.7 g/dL (13.0-18.0) L 04/27/25 05:24
Hct 26.7 % (39.0-52.0) L 04/27/25 05:24
Plt Count 179 10^3/uL (130-400) 04/27/25 05:24
Sodium 131 mmol/L (135-145) L 04/27/25 05:24
Potassium 3.7 mmol/L (3.5-5.1) 04/27/25 05:24
Chloride 98 mmol/L (98-107) 04/27/25 05:24
Carbon Dioxide 28 mmol/L (22-30) 04/27/25 05:24
BUN 56 mg/dl (9-20) H 04/27/25 05:24
Creatinine 2.6 mg/dL (0.7-1.3) H 04/27/25 05:24
eGFR 27.72 04/27/25 05:24
Glucose 149 mg/dl (70-99) H 04/27/25 05:24
Calcium 9.8 mg/dl (8.4-10.2) 04/27/25 05:24
Phosphorus 1.5 mg/dl (2.5-4.5) L 04/20/25 04:29
Albumin 2.3 g/dl (3.5-5.0) L 04/27/25 05:24
Physical Exam
-
Vital Signs:
Vital Signs
Temp Pulse Resp BP Pulse Ox
100.3 F 77 33 126/62 95
04/27/25 10:47 04/27/25 10:50 04/27/25 10:00 04/27/25 10:50 04/27/25 10:47
Cardiovascular:: Regular rate and rhythm
Respiratory:: Bilateral: Coarse
Lung Excursion:: Normal
Abdomen:: Nontender and Soft
Bowel Sounds:: Normal
Extremity Edema:: None: Bilateral:
Other Findings::
Feeding tube
Poorly respond
--- NOTE | 2025-04-27 15:11 | W.PN.HOSP.TC ---
Today's Communication/Plan
-
IV AB
Bld Cx in am
Assessment / Plan
Assessment / Plan
59 y/o patient had a prolonged hospitalization at [facility] January 11, 2025 to March 17, 2025 for intractable back pain, catheter associated infection, Klebsiella bacteremia. On long-term IV antibiotics cefepime and daptomycin with HD here
for acute change in mental status. Patient was obtunded on arrival and hypotensive. Baseline intermittently confused and bedbound since November 2024 per POA. Able to talk to sister on the phone at baseline.
Currently not verbal.
Cardiovascular system S1-S2 appreciated
Chest clear to auscultation
Abdomen soft and nontender
Dobbhoff tube
Unstageable sacral decubitus
Patient wakes up with painful stimulus but does not communicate
04/23/25 18:00 Sacral Wound Culture - Preliminary
04/23/25 18:00 Sacral Gram Stain - Preliminary
CT Head: No acute intracranial abnormality noted.There are mild/moderate periventricular and subcortical white matter hypodensities which are nonspecific, however likely sequelae of chronic small vessel ischemic disease.
EEG 04/11/2025: Diffuse cortical dysfunction without focal abnormality. No seizures activity.
Echo 04/11/2025: TDS. EF 60-65%, no RWMA.
MRI brain 04/13/25: There are small foci of restricted diffusion involving the bilateral frontoparietal white matter, the left frontal white matter more anteriorly in the right basal ganglia consistent with acute/subacute infarctions. These may be
embolic in nature given the multivessel territory. Mild atrophy with sequelae of moderate chronic small vessel ischemic disease. Prominent blooming artifact along the left paramedian parietal lobe which is likely sequelae of prior
hemorrhage/hematoma.
CT A/P w/IV contrast 04/15/25: Limited exam, anasarca, splenomegaly, atrophic bilateral kidneys, proctitis indeterminate etiology, diffuse wall thickening of the urinary bladder outlet obstruction without source neurogenic bladder. Small focus of
gas in the bladder. Recent fracture of greater trochanter of right femur. Osseous destructive process of the T8-T9. Abnormal lucent and sclerotic appearance of the bones likely renal osteodystrophy
R Hip x-ray 04/17/25: Findings suggesting subacute fracture of the right greater trochanter.
CXR 04/23: Mild pulmonary vascular congestion. Mild hazy opacity in the right lung base, which could represent atelectasis or pneumonia.
#Acute/subacute CVAs :
-MRI brain above, likely embolic in nature
-should continued aggressive care be desired, work up for other causes of hypercoagulable state per heme/onc
-as per cards, no ALENA at this time as too high risk for aspiration with nearly obtunded state
#Acute metabolic encephalopathy
-Multifactorial due to hypotension, polypharmacy, hypovolemia, (possibly) acute/subacute CVAs, and likely vascular dementia
-started on IV Synthroid, endocrine saw in c/s
-neuro saw in consult and states that currently the pt's diagnosis is
-EEG without seizure activity
-Cont to hold gabapentin/Haldol
-Dobhoff placed on 04/18/25 for feeds
-As pt's sister wants to continue aggressive care, GI consulted for PEG placement-timing to be determined by GI
#H/O VRE and Klebsiella bacteremia:
-admitted on daptomycin/cefepime and transitioned to IV Zosyn per ID. Now off abx as per ID as d/c records indicate completion of antibiotics at [place] and unclear as to why they were started at [facility]. Cultures were negative and pt was
afebrile.
-04/23/25AM temp 101.2 F. Septic w/u with BCxs (which are NGTD) and CXR (as above). Surgery following, likely sacral ulcer debridement 04/28. Abx ordered but stopped by ID.
-Zosyn started 04/26/2025 to cover for positive blood cultures with gram-negative rods, possible source infected sacral decubitus ulcer
-Infectious disease following
#Pancytopenia:
-anemia likely secondary to chronic kidney disease
-BMBx and MM work up was done at [place] revealing no BM or genetic mutations
-Heme/onc appreciated for possible eval for TTP, no TTP as no schistocytes and normal LDH, antibody panels for other causes of hypercoagulable states pending
-Status post 2 units of PRBCs this admission
Thrombocytopenia and leukopenia resolved
#Lupus anticoagulant positive likely contributing to hypercoagulable state. Heparin bridge started. Bridged to warfarin once PEG tube is placed
#Hypothyroidism-started on Synthroid
#Elevated troponin, nonischemic myocardial injury and due to underlying ESRD
#Chronic HFpEF: cont BB
#ESRD: cont HD M/W/F, renal following
#PAF: Cont BB/heparin drip
#Anxiety/depression: cont Lexapro. Psychiatric valuation appreciated. BuSpar discontinued
#? Metastatic disease: Hospital records from [place] revealed concerns for metastatic disease after MRI of spine done. Some proctocolitis of bowels noted on imaging as well. CT A/P revealed no obvious metastatic disease
#Diarrhea: C diff NEG
#R greater trochanteric femur fracture: No surgical intervention required per ortho.
#Essential HTN: BB with holding parameters
#HLD: Cont statin
#Hypokalemia, replete prn
#Hypophosphatemia, replete
#Bedbound since November 2024 with intermittent confusion at baseline
#DM2: SSI/accuchecks
#Concern for vascular dementia
#Amputation of the left toes 1-3
#Osseous destruction of T8-T9
#Splenomegaly
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
#Wounds:
-Unstageable sacral pressure injury, likely wound debridement by surgery 04/28
-stage I B/L heel pressure injury
-wound care
-Tylenol 1,000mg TID for pain
- Will also start oxycodone 2.5 mg every 6 hours-Sister does not think he has a true allergy. Discussed with her and she is okay with starting.
# DVT prophylaxis-heparin
# DNR Status now
Prognosis poor given multiple medical conditions and mental status.
Discussed with infectious disease
Discussed with nursing at bedside
Discussed with patient's sister on the phone who stated that patient is a DNR now but she is not ready to move onto hospice yet. She was here yesterday and patient was able to converse with her. Unfortunately I have not seen him have a
conversation with anybody. Sister did say that he can be selective in terms of who he wants to talk to sometimes or what he needs to respond to. She stated that when the psychiatrist was in the room yesterday he would not talk to him but would
respond to the sister.
Reviewed with the sister regarding fever and also postponement of the PEG tube because of this.
Time spent over 50 minutes
Anticipated Discharge: > 48 hours
Subjective/Interval History
-
Date of Service: April 27, 2025
Objective Data
-
Labs:
Laboratory Results
04/27/25 04/27/25 04/27/25
05:24 11:48 18:55
WBC 13.2 H
Hgb 8.7 L
Hct 26.7 L
Plt Count 179
APTT 80.6 H 66.7 H Pending
Sodium 131 L
Potassium 3.7
Chloride 98
Carbon Dioxide 28
BUN 56 H
Creatinine 2.6 H
Glucose 149 H
Calcium 9.8
Total Bilirubin 0.8
AST 16 L
ALT 12
Alkaline Phosphatase 226 H
Vital Signs:
Vital Signs
Temp Pulse Resp BP Pulse Ox
100.3 F 77 33 126/62 95
04/27/25 10:47 04/27/25 10:50 04/27/25 10:00 04/27/25 10:50 04/27/25 10:47
I&O
04/26/25 04/27/25 04/28/25
06:59 06:59 06:59
Intake Total 1430 / 1430 1000 / 1000
Output Total 300 / 300
Balance 1430 / 1430 700 / 700
[2025-04-27] MEDS: ZINC 50 MG TUBE (15:22)
--- NOTE | 2025-04-27 16:08 | PTCARENOTE ---
Patient has positive blood cultures today, discussed with hospitalist. Rectal temp 100.3 this morning. Patient is receiving Tylenol around the clock.Sacral wound foul smelling with dressing intact. Fecal management system is keeping skin clean and
dry, irrigated. Patient is tolerating tube feeds via dobhoff tube. Nonverbal pain scale in affect as needed. Patient grimaces occasionally but overall has eyes closed. IV antibiotics infusing.
[2025-04-27] MEDS: NOVOLOG FLEXPEN-MODERATE RESISTANCE 3 UNITS SC (17:04)
[2025-04-27] MEDS: CRESTOR 10 MG TUBE (17:05)
[2025-04-27] MEDS: LEVOTHROID 50 MCG IV (17:05)
[2025-04-27 17:13] LABS: Glucose - Point of Care 222 mg/dl (70-99)
--- NOTE | 2025-04-27 18:04 | PTCARENOTE ---
Patient attempting to pull on IV sites and dobhoff tube. Bilateral soft wrist restraints in use due to risk of risk of injury to self.
[2025-04-27 19:17] LABS: APTT 82.8 Sec (23.4-35.0)
[2025-04-28] VITALS (34 sets, daily range): BP systolic 106–139; BP diastolic 55–85; BMI 20.1
[2025-04-28 03:08] LABS: Hematocrit 26.4 % (39.0-52.0); Hemoglobin 8.4 g/dL (13.0-18.0); Mean Corp Hgb Conc. 31.8 g/dL (33.0-37.0); Mean Corpuscular Volume 88.6 fL (80.0-94.0); Platelet Count 207 10^3/uL (130-400); Red Cell Dist. Width 20.7 % (11.5-14.5)
[2025-04-28 03:22] LABS: APTT 60.2 Sec (23.4-35.0)
[2025-04-28 03:35] LABS: ALT (SGPT) 12 U/L (0-50); AST (SGOT) 17 U/L (17-59); Albumin 2.2 g/dl (3.5-5.0); Alkaline Phosphatase 253 U/L (38-126); Blood Urea Nitrogen 70 mg/dl (9-20); Calcium 9.9 mg/dl (8.4-10.2); Carbon Dioxide 26 mmol/L (22-30); Chloride 96 mmol/L (98-107); Estimated Creatinine Clearance 25 ml/min; Glucose 176 mg/dl (70-99); Potassium 3.9 mmol/L (3.5-5.1); Sodium 128 mmol/L (135-145); Total Protein 4.6 g/dl (6.3-8.2); eGFR 24.31
[2025-04-28] MEDS: SANTYL OINTMENT 1 APPLIC TOPICAL (03:36)
[2025-04-28] MEDS: DAKIN'S SOLUTION 0.125% 1/4 STRENGTH 473 ML TOPICAL (03:36)
[2025-04-28] MEDS: HEPARIN 25000 UNITS/250 ML IV ×2 (03:41→16:06)
[2025-04-28] MEDS: HEPARIN 5200 UNITS IV (04:36)
[2025-04-28] MEDS: ZOSYN 50 IV ×3 (05:23→21:58)
[2025-04-28] MEDS: NOVOLOG FLEXPEN-MODERATE RESISTANCE 3 UNITS SC (05:24)
[2025-04-28] MEDS: NOVOLOG FLEXPEN 4 UNITS SC ×3 (05:24→19:21)
[2025-04-28 05:34] LABS: Glucose - Point of Care 207 mg/dl (70-99)
--- NOTE | 2025-04-28 05:47 | PTCARENOTE ---
No acute events overnight. Afebrile. Wound care completed as ordered. Tolerating tube feeds. B/l soft wrist restraints in place to prevent patient from removing dobhoff. Plan for dialysis today and possible wound debridement/peg? Heparin gtt
subtherapeutic. Rebolused and increased to 2200. Next pTT due at 1045. Will continue to monitor.
[2025-04-28 05:48] LABS: Glucose - Point of Care 231 mg/dl (70-99)
[2025-04-28] MEDS: ZINC 50 MG TUBE (07:59)
[2025-04-28] MEDS: LEXAPRO 10 MG TUBE (07:59)
[2025-04-28] MEDS: TYLENOL 1000 MG TUBE ×2 (07:59→21:58)
[2025-04-28] MEDS: DAILY VITAMIN/CENTRUM 15 ML TUBE (07:59)
[2025-04-28] MEDS: VITAMIN B1 100 MG TUBE (07:59)
[2025-04-28] MEDS: PROTONIX IV 40 MG IV (08:00)
[2025-04-28] MEDS: LOPRESSOR TUBE (08:02)
[2025-04-28] MEDS: DESENEX/MITRAZOL/ZEASORB 1 APPLIC TOPICAL ×2 (08:03→20:36)
[2025-04-28] MEDS: NSS (PRESERVATIVE FREE) 10 ML IV (08:04)
--- NOTE | 2025-04-28 08:17 | CHAP ---
Addendum entered by Shaunna Lemon 04/28/25 15:46:
Spoke with Dr. Alexander. [place]/confirmed that Mr. Mondragon's sister does not have an official POA document, so his two adult daughters are the legal decision makers. I know he has reached out to them and they've asked for time to discuss. I will
follow up with them tomorrow.
Addendum entered by Shaunna Lemon 04/28/25 09:47:
Spoke with Dr. Contreras, hospitalist for Mr. Mondragon. Current plan is to have case management determine if the sister who has been involved has an official POA designation, because he reportedly has other siblings as well who would have equal
standing if there is no official POA designation. I will also reach out to the sister who has been involved to hear her story and offer support.
Original Note:
Ethics consult received this morning (placed over the weekend). Will begin speaking to clinical staff involved in Mr. Mondragon's care, and his family to determine if a consultation panel should be called.
--- NOTE | 2025-04-28 08:25 | W.PN.HOSP.TC ---
Addendum entered and electronically signed by Pedro Contreras MD 04/28/25 15:37:
seen and examined the patient . He was drowsy and not able to communicate with me
Agree with the assessment plan formulated by the resident.
Dobbhoff tube had clogged , was replaced today
Patient is still not able to communicate
Afebrile overnight
Continues on antibiotics
Case discussed with surgery, GI, pastoral care as they are received consult for ethics.
I have requested case management to get power of principal trainer documents from sister as she told me she has POA.
I am also given a number for patient's adult daughter Kamryn [phone]
Called sister-went to message
Called daughter Kamryn-no mailbox set up therefore I could not communicate
GI wants to wait until fevers are subsided to place a PEG tube
Surgery wants to wait until who is the decision-maker for the patient in terms of giving consent for debridement.
Await case management to obtain power of principal trainer documents if sister has them. If not we may have to go to patient's adult children for consents
Original Note:
Today's Communication/Plan
-
Cont zosyn
New Dobhoff tube today
check c.diff
monitor WBC and temp
Increase levothyroxine 50 [address] Olga Lidia mao
Likely to OR for PEG and sacral debridement on 04/30
Assessment / Plan
Assessment / Plan
59 y/o patient had a prolonged hospitalization at [facility] January 11, 2025 to March 17, 2025 for intractable back pain, catheter associated infection, Klebsiella bacteremia. On long-term IV antibiotics cefepime and daptomycin with HD here
for acute change in mental status. Patient was obtunded on arrival and hypotensive. Baseline intermittently confused and bedbound since November 2024 per POA. Able to talk to sister on the phone at baseline.
04/23/25 18:00 Sacral Wound Culture - Preliminary
04/23/25 18:00 Sacral Gram Stain - Preliminary
CT Head: No acute intracranial abnormality noted.There are mild/moderate periventricular and subcortical white matter hypodensities which are nonspecific, however likely sequelae of chronic small vessel ischemic disease.
EEG 04/11/2025: Diffuse cortical dysfunction without focal abnormality. No seizures activity.
Echo 04/11/2025: TDS. EF 60-65%, no RWMA.
MRI brain 04/13/25: There are small foci of restricted diffusion involving the bilateral frontoparietal white matter, the left frontal white matter more anteriorly in the right basal ganglia consistent with acute/subacute infarctions. These may be
embolic in nature given the multivessel territory. Mild atrophy with sequelae of moderate chronic small vessel ischemic disease. Prominent blooming artifact along the left paramedian parietal lobe which is likely sequelae of prior
hemorrhage/hematoma.
CT A/P w/IV contrast 04/15/25: Limited exam, anasarca, splenomegaly, atrophic bilateral kidneys, proctitis indeterminate etiology, diffuse wall thickening of the urinary bladder outlet obstruction without source neurogenic bladder. Small focus of
gas in the bladder. Recent fracture of greater trochanter of right femur. Osseous destructive process of the T8-T9. Abnormal lucent and sclerotic appearance of the bones likely renal osteodystrophy
R Hip x-ray 04/17/25: Findings suggesting subacute fracture of the right greater trochanter.
CXR 04/23: Mild pulmonary vascular congestion. Mild hazy opacity in the right lung base, which could represent atelectasis or pneumonia.
#Acute/subacute CVAs :
-MRI brain above, likely embolic in nature
-should continued aggressive care be desired, work up for other causes of hypercoagulable state per heme/onc
-as per cards, no ALENA at this time as too high risk for aspiration with nearly obtunded state - will reach out to cardiology for possible ALENA during PEG and sacral debridement
#Acute metabolic encephalopathy
-Multifactorial due to hypotension, polypharmacy, hypovolemia, (possibly) acute/subacute CVAs, and likely vascular dementia
-started on IV Synthroid, endocrine saw in c/s
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
-EEG without seizure activity
-Cont to hold gabapentin/Haldol
-Dobhoff placed on 04/18/25 for feeds - replaced 04/28/25
-As pt's sister wants to continue aggressive care, GI consulted for PEG placement-timing to be determined by GI - goal is to place PEG and do sacral debridement at same time likely 04/30
#H/O VRE and Klebsiella bacteremia:
-admitted on daptomycin/cefepime and transitioned to IV Zosyn per ID. Now off abx as per ID as d/c records indicate completion of antibiotics at [place] and unclear as to why they were started at [facility]. Cultures were negative and pt was
afebrile.
-04/23/25AM temp 101.2 F. Septic w/u with BCxs (which are NGTD) and CXR (as above). Surgery following, likely sacral ulcer debridement 04/28. Abx ordered but stopped by ID.
-Zosyn started 04/26/2025 to cover for positive blood cultures with gram-negative rods, possible source infected sacral decubitus ulcer
-Infectious disease following
#Pancytopenia:
-anemia likely secondary to chronic kidney disease
-BMBx and MM work up was done at [place] revealing no BM or genetic mutations
-Heme/onc appreciated for possible eval for TTP, no TTP as no schistocytes and normal LDH, antibody panels for other causes of hypercoagulable states pending
-Status post 2 units of PRBCs this admission
Thrombocytopenia and leukopenia resolved
#Anxiety/depression
-Psychiatric valuation appreciated. BuSpar discontinued.
-Taper off lexapro per psych. 10mg daily for 7 days then discontinue on 05/07.
#Lupus anticoagulant positive likely contributing to hypercoagulable state. Heparin bridge started. Bridged to warfarin once PEG tube is placed
#Hypothyroidism-started on Synthroid - Endocrine recommends increase from 50 to 75 levothyroxine IV as he remains obtunded to see if it helps - recheck TSH on 05/[address] Duggan know
#Elevated troponin, nonischemic myocardial injury and due to underlying ESRD
#Chronic HFpEF: cont BB
#ESRD: cont HD M/W/F, renal following
#PAF: Cont BB/heparin drip
#? Metastatic disease: Hospital records from [place] revealed concerns for metastatic disease after MRI of spine done. Some proctocolitis of bowels noted on imaging as well. CT A/P revealed no obvious metastatic disease
#Diarrhea: C diff NEG - smells like c.diff to nursing - retest today
#R greater trochanteric femur fracture: No surgical intervention required per ortho.
#Essential HTN: BB with holding parameters
#HLD: Cont statin
#Hypokalemia, replete prn
#Hypophosphatemia, replete
#Bedbound since November 2024 with intermittent confusion at baseline
#DM2: SSI/accuchecks
#Concern for vascular dementia
#Amputation of the left toes 1-3
#Osseous destruction of T8-T9
#Splenomegaly
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
#Wounds:
-Unstageable sacral pressure injury, likely wound debridement by surgery 04/28 - defer to date when PEG is placed
-stage I B/L heel pressure injury
-wound care
-Tylenol 1,000mg TID for pain
- Will also start oxycodone 2.5 mg every 6 hours-Sister does not think he has a true allergy. Discussed with her and she is okay with starting.
# DVT prophylaxis-heparin
# DNR Status now
Prognosis poor given multiple medical conditions and mental status.
Anticipated Discharge: > 48 hours
Subjective/Interval History
-
Date of Service: April 28, 2025
Remains obtunded. Not following commands. Appears to be in more pain compared to prior. Replaced dobhoff today as his old one got clogged.
Objective Data
-
Labs:
Laboratory Results
04/28/25 04/28/25
02:28 10:45
WBC 15.8 H
Hgb 8.4 L
Hct 26.4 L
Plt Count 207
APTT 60.2 H Pending
Sodium 128 L
Potassium 3.9
Chloride 96 L
Carbon Dioxide 26
BUN 70 H
Creatinine 2.9 H
Glucose 176 H
Calcium 9.9
Total Bilirubin 0.7
AST 17
ALT 12
Alkaline Phosphatase 253 H
Vital Signs:
Vital Signs
Temp Pulse Resp BP Pulse Ox
98.0 F 73 29 110/61 100
04/28/25 07:35 04/28/25 06:00 04/28/25 05:00 04/28/25 06:00 04/28/25 06:00
I&O
04/27/25 04/28/25 04/29/25
06:59 06:59 06:59
Intake Total 900 / 900 2099
Output Total 300 / 300 0 / 0
Balance 600 / 600 2099
Review of Systems
-
Unable to obtain full review of systems at this time due to: Dementia and Acuity
Physical Exam
-
General: Appears in Distress, Pain and Appears Chronically Ill
Respiratory: Clear to Auscultation
Cardiac: Regular Rhythm and S1/S2
GI: Soft, Nontender, Nondistended and Normal Bowel Sounds
Musculoskeletal: No Cyanosis and Other (Bilateral upper extremity edema present with right greater than left. Missing toes of right foot.)
Psych: Calm
--- NOTE | 2025-04-28 08:45 | W.PN.ID1 ---
Date of Service
Date of Service: April 28, 2025
Today's Communication
Continue antibiotics.
Assessment / Plan
GNR bacteremia x 2 sets
Fever - intermittent
Leukocytosis; trending up.
Encephalopathy; ongoing
- ?TME ?CVA
Hx VRE / Klebsiella infection 2* HD cath CLABSI (at OSH)
- Previously on dapto / cefepime when arrived from nursing facility.
- Completed course of therapy
Unstageable sacral wound
Penile dermal necrosis
Vascular dementia
P A-fib (on Eliquis)
ESRD�HD (MWF)
DM
PAD
CHF
Anxiety/depression
Recommendations:
OSH 01/27/25 Bcx: VRE (sensitive to amp, dapto, linezolid)
Klebsiella aerogenes (Sensitive to: t/sulfa, FQ, tobra, gent, pip/tazo, cefepime (<2), ceftaz (4))
Reviewed extensive records from [facility]. According to those records, the patient had VRE and Klebsiella bacteremia (as above) attributed to his dialysis cath, which was changed in mid January. Per his discharge summary, he completed a
course of antibiotics prior to being discharged. He arrived here to [facility] from [facility] on antibiotics (daptomycin / cefepime). Patient appears to have been restarted on antibiotics upon admission to [facility], but for unclear
reasons. Discharge med list from [facility] do not show that any antibiotics were to be continued.
Blood here cx's neg to date.
Antibiotics previously discontinued 04/16/2025.
New Fevers, leukocytosis
- 04/23 blood cx's blood culture now positive for gram-negative rods
- 04/23 CXR: mild opacity RLL atelectasis vs PNA
- 04/26/25 blood cx's x 2 GNR.
-04/23 Sacral wound polymicrobial growth, although difficult to distinguish colonizers versus more invasive bacteria.
- Repeat blood cx's pending.
- Potential sources of bacteremia include sacral wound, HD line.
- Await identification of isolates
-Continue Zosyn (d#3)
-Continue local care to sacral wound. Area will require debridement. General surgery to tentatively perform at time of PEG tube.
Overall prognosis at this point appears exceedingly poor. Patient with poor wound healing capacity given underlying cachexia, low albumin and protein stores.
Patient is hospice appropriate.
Chart reviewed. Medical POA continues to desire aggressive care over measures that would focusing on comfort.
����������������������������������������������������������
Chief Complaint
-: Fever, Bacteremia and Other (Change in mental status, failure to thrive)
Subjective / Review of Systems
Patient seen and examined. Remains afebrile at this time.
Vital Signs / Physical Exam
Vital Signs
Vital Signs
Temp Pulse Resp BP Pulse Ox
98.0 F 73 29 110/61 100
04/28/25 07:35 04/28/25 06:00 04/28/25 05:00 04/28/25 06:00 04/28/25 06:00
Physical Exam
Constitutional: Acutely Ill, Chronically Ill and Cachetic
Head: Other (Temporal wasting. Nasal Dobbhoff in place.)
Eyes: Sclera Anicteric
Cardiovascular: S1/S2; Negative S3/S4
Pulmonary: Non Labored; Negative Wheezes
Gastrointestinal: Soft and Non Distended
Extremities: Negative Edema, Cyanosis or Erythema
Wound: Other (Sacral area with necrotic wound with significant malodor. Mild periwound erythema. Wound is unstageable at this time.)
Neurological: Awake and Other (Nonverbal)
Lines: HD Cath (Left ACW)
Objective Data
Lab Data
Lab Results
04/28/25 02:28
04/28/25 02:28
PT 19.6 Sec (11.4-14.6) H 04/24/25 05:43
INR 1.60 04/24/25 05:43
APTT 60.2 Sec (23.4-35.0) H 04/28/25 02:28
Estimated Creat Clear 25 ml/min 04/28/25 02:28
Lactic Acid Cancelled 04/10/25 14:15
Total Bilirubin 0.7 mg/dl (0.2-1.3) 04/28/25 02:28
AST 17 U/L (17-59) 04/28/25 02:28
ALT 12 U/L (0-50) 04/28/25 02:28
Alkaline Phosphatase 253 U/L (38-126) H 04/28/25 02:28
Most recent labs reviewed.
Micro Results:
04/28/25 03:23 Blood Culture - Pending
Blood/Venous
04/28/25 03:18 Blood Culture - Pending
Blood/Venous
04/23/25 18:00 Blood Culture - Preliminary
Blood/Venous No Growth in 4 days- Final report to follow
04/23/25 14:38 Blood Culture - Preliminary
Blood/Venous Positive culture in progress
Gram Stain - Preliminary
04/23/25 18:00 Wound Culture - Preliminary
Sacral Gram negative bacilli
Enterococcus species
Streptococcus species
Additional testing on request
Gram Stain - Final
04/26/25 10:15 Blood Culture - Preliminary
Blood/Venous Positive culture in progress
Gram Stain - Preliminary
04/26/25 11:09 Blood Culture - Preliminary
Blood/Venous Positive culture in progress
Gram Stain - Preliminary
04/10/25 12:30 Blood Culture - Final
Blood/Venous No Growth - Final Report
04/10/25 10:12 Blood Culture - Final
Blood/Venous No Growth - Final Report
04/13/25 14:55 C. difficile GDH Antigen & Toxins - Final
Feces/Stool Negative for toxigenic C.difficile
04/11/25 04:12 MRSA Screen - Final
Nose Staph aureus MRSA
Imaging:
04/09/2025 MRI brain without contrast: There are small foci of restricted diffusion involving the bilateral frontoparietal white matter, the left frontal white matter more anteriorly in the right basal ganglia consistent with acute/subacute
infarctions. These may be embolic in nature given the multivessel territory. Mild atrophy with sequelae of moderate chronic small vessel ischemic disease.
Prominent blooming artifact along the left paramedian parietal lobe which is likely sequelae of prior hemorrhage/hematoma.
[2025-04-28 09:40] LABS: Glucose - Point of Care 177 mg/dl (70-99)
[2025-04-28 11:16] LABS: APTT 70.7 Sec (23.4-35.0)
[2025-04-28] MEDS: HEPARIN 2600 UNITS IV (11:34)
[2025-04-28 12:24] LABS: Glucose - Point of Care 127 mg/dl (70-99)
--- NOTE | 2025-04-28 12:30 | W.PN.UPDATE ---
Update Note
Progress Note Update
Pt seen and evaluated at bedside. He is non verbal. He does not respond to verbal stimuli. With sternal rub he winces.
I recommend hospice. I spoke with his sister Geovanni who said she prefers to defer the PEG to see if he will improve his swallow function. She does wish to proceed with debridement of sacral wound. I spoke with GI who prefers to defer PEG until he is
afebrile for 48 hrs. I spoke with EMPLOYMENT CLERK who has been following for a week with no improvement and minimal responsiveness. Given that he has pulled his DHT out, there is a real concern he could pull out a g-tube as well and this could lead to a
surgical emergency requiring exploratory laparotomy. He is also on A/C due to CVA and interrupting the A/C could lead to worsening of the CVA or other thrombotic complications. I advised patient's sister of the risks as well has his poor prognosis
and my recommendation for hospice. She does not want to proceed with hospice and does want to proceed with debridement. I asked his sister if she has legal POA and she responded she does not, though she has been making decisions for him.
He has 2 adult daughters. I spoke with his daughter Kamryn [phone]. I advised her of his condition and poor prognosis and my recommendation for hospice. She asked to have some time to discuss with family and would like to discuss further when
she is better informed. His other daughter Esha ([phone]) was not able to be reached and has no VM set up.
It appears an ethics consult was placed over the weekend. I discussed this briefly with Pastoral Care today.
Plan to defer any invasive procedure for the time being.
--- NOTE | 2025-04-28 12:59 | W.PN.NEPH.HD ---
Assessment
-
Seen on HD. no complaints. nonverbal .DHT clogged, for replacement
no FWF
Progress Note - Hemodialysis
-
Date of Service: April 28, 2025
Duration: 30 minutes and 3 hours
Potassium Bath: 4
Calcium Bath: 2.5
Opti-Dialyzer: 160
Ultrafiltration: Other (1.5)
Blood Flow: 400
Dialysate Flow: 600
Heparin: 0
EPO: [id number] units
[2025-04-28] MEDS: NOVOLOG FLEXPEN-MODERATE RESISTANCE SC ×2 (13:12→18:22)
[2025-04-28] MEDS: RETACRIT 10000 UNITS IV (13:41)
--- NOTE | 2025-04-28 14:46 | W.PN.GI.CBS2 ---
Today's Communication / Plan
-
-- dobhoff placed with primary team and xray confirmed
-- will await the ethics consult before placing PEG
Assessment / Plan
-
This is a 59-year-old unfortunate male with multiple comorbidities as listed above with altered mental status and currently being evaluated for new onset of fever again since yesterday and recently was treated with prolonged antibiotics for line
related sepsis at outside hospital who was residing at [facility] prior to presenting to [place]. He also has lupus anticoagulant and antiphospholipid syndrome and currently on heparin and to be transitioned to warfarin. He does have
pancytopenia his INR was 1.6 and his platelets are 95. Patient overall has poor prognosis given that he has not had much improvement in his mentation and is also thought to have possible acute CVA. Overall poor quality of life and would highly
recommend comfort or hospice care but unfortunately sisters are not agreeable for comfort care and were requesting the PEG placement. Will place a call out to sister if she still wants to proceed with feeding tube will schedule if INR and platelet
count is stable over the next 24 to 48 hours.
other medical issues being addressed by medical team
New fever
New right upper extremities redness and swelling
Sacral wound
Acute metabolic encephalopathy
Hypothyroidism/myedema coma?
CVA
Pancytopenia
ESRD on HD Monday
Paroxysmal atrial fibrillation
Anxiety and depression
History of VRE and Klebsiella bacteremia
Chronic CHF
Right greater trochanteric femur fracture -No surgical intervention required per ortho
Hypertension
Hyperlipidemia
vascular dementia
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
Osseous destruction of T8-T9
Splenomegaly
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
##Gram-negative bacteremia being treated with antibiotics
-- Large wound that needs debridement
-- Sounds like there is some debate on who is power of prosecuting attorney.
There has been an ethics consult--
-- will await the ethics consult On whether or not to proceed with the PEG tube
-- Patient's infections need to be under control prior to a PEG tube. At least 48 hours of fever free
-- The PEG tube is not an emergency. He has enteral access with the Dobbhoff.
--Discussed with primary team, discussed with Dr. Alexander
-- Lets figure out the infection, get it under control, figure out power of prosecuting attorney and decision making and then we will go from there.
Subjective
Subjective
Date of Service: April 28, 2025
Patient is Dobbhoff is clogged. Last fever was Monday
Objective
Data Reviewed
Laboratory Data:
Laboratory Results
04/28/25 02:28
04/28/25 02:28
Laboratory Results
PT 19.6 Sec (11.4-14.6) H 04/24/25 05:43
INR 1.60 04/24/25 05:43
APTT 70.7 Sec (23.4-35.0) H 04/28/25 10:55
Phosphorus 1.5 mg/dl (2.5-4.5) L 04/20/25 04:29
Magnesium 1.7 mg/dl (1.6-2.3) 04/24/25 05:43
Total Bilirubin 0.7 mg/dl (0.2-1.3) 04/28/25 02:28
AST 17 U/L (17-59) 04/28/25 02:28
ALT 12 U/L (0-50) 04/28/25 02:28
Alkaline Phosphatase 253 U/L (38-126) H 04/28/25 02:28
Vital Signs and I&O:
Vital Signs
Temp Pulse Resp BP Pulse Ox
98.4 F 73 29 110/61 99
04/28/25 11:25 04/28/25 06:00 04/28/25 05:00 04/28/25 06:00 04/28/25 14:07
I&O
04/27/25 04/28/25 04/29/25
06:59 06:59 06:59
Intake Total 900 / 900 2099
Output Total 300 / 300 0 / 0
Balance 600 / 600 2099
Physical Exam
Physical Exam
HEENT: Anicteric
Neuro: Other (Awake alert but nonverbal)
--- NOTE | 2025-04-28 15:12 | PTCARENOTE ---
Rec'd pt this AM. DHT was clogged so Dr. Contreras placed a new one. TF resumed with no water flush per order by Dr. Trevino. vital signs stable. pt remains with minimal verbal interaction. Pt will rarely verbalize a sentence but without much meaning. HD
today. Hep drip maintained. Goals of care discussion ongoing with family
[2025-04-28] MEDS: TYLENOL 650 MG TUBE (15:56)
--- NOTE | 2025-04-28 17:01 | CM ---
CM Consult to attempt to retrieve any POA documents. Spoke with Re, cloth sander at [facility], she will check records and call CM tomorrow. This CM also called Hyacinth Quezada (sister) and left message. Re said the secondary
contact is another sister Meenakshi Carrasco @ [phone]. Will call admissions to add.
IV/Zosyn. Discharge POC: Return to [facility] for resumption of LTC.
[2025-04-28] MEDS: TYLENOL TUBE (17:13)
[2025-04-28] MEDS: LEVOTHROID 75 MCG IV (17:13)
[2025-04-28] MEDS: CRESTOR 10 MG TUBE (17:13)
[2025-04-28 17:37] LABS: APTT 99.3 Sec (23.4-35.0)
[2025-04-28 18:12] LABS: Glucose - Point of Care 178 mg/dl (70-99)
[2025-04-28] MEDS: LOPRESSOR 50 MG TUBE (20:36)
--- NOTE | 2025-04-28 23:31 | PTCARENOTE ---
Assumed care of Pt from dayshift RN after change of shift report. Pt opens eyes to tactile stimuli, nonverbal. does not follow commands. SNR on monitor. satting 99% on RA. pt has left nare dobhoff present, TF infusing at 50ml hr continuously. HOB
>30 degrees. Q2T maintained. FMS present. loose liquid brown stool. assessment as documented. safe environment maintained.
[2025-04-29] VITALS (13 sets, daily range): BP systolic 112–139; BP diastolic 57–96; BMI 19.6
[2025-04-29 00:07] LABS: APTT 62.5 Sec (23.4-35.0)
[2025-04-29] MEDS: NOVOLOG FLEXPEN 4 UNITS SC ×4 (00:45→18:29)
[2025-04-29] MEDS: NOVOLOG FLEXPEN-MODERATE RESISTANCE 5 UNITS SC (00:46)
[2025-04-29] MEDS: HEPARIN 5200 UNITS IV (00:51)
[2025-04-29 00:56] LABS: Glucose - Point of Care 250 mg/dl (70-99)
[2025-04-29] MEDS: TYLENOL 650 MG TUBE (03:56)
[2025-04-29] MEDS: ZOSYN 50 IV ×3 (04:59→23:16)
[2025-04-29 05:32] LABS: ALT (SGPT) 12 U/L (0-50); AST (SGOT) 16 U/L (17-59); Albumin 2.2 g/dl (3.5-5.0); Alkaline Phosphatase 281 U/L (38-126); Blood Urea Nitrogen 52 mg/dl (9-20); Calcium 9.7 mg/dl (8.4-10.2); Carbon Dioxide 28 mmol/L (22-30); Chloride 99 mmol/L (98-107); Estimated Creatinine Clearance 36 ml/min; Glucose 168 mg/dl (70-99); Potassium 3.5 mmol/L (3.5-5.1); Sodium 132 mmol/L (135-145); Total Protein 4.8 g/dl (6.3-8.2); eGFR 35.81
[2025-04-29 06:04] LABS: Hematocrit 27.6 % (39.0-52.0); Hemoglobin 8.9 g/dL (13.0-18.0); Mean Corp Hgb Conc. 32.2 g/dL (33.0-37.0); Mean Corpuscular Volume 89.0 fL (80.0-94.0); Platelet Count 248 10^3/uL (130-400); Red Cell Dist. Width 20.9 % (11.5-14.5)
[2025-04-29] MEDS: NOVOLOG FLEXPEN-MODERATE RESISTANCE 1 UNITS SC (06:42)
[2025-04-29 06:52] LABS: Glucose - Point of Care 175 mg/dl (70-99)
[2025-04-29 07:41] LABS: Nucleated Red Blood Cells % 0 % (-)
[2025-04-29] MEDS: DAILY VITAMIN/CENTRUM TUBE (07:41)
[2025-04-29] MEDS: LOPRESSOR TUBE (07:41)
[2025-04-29] MEDS: TYLENOL TUBE (07:41)
[2025-04-29] MEDS: LEXAPRO TUBE (07:41)
[2025-04-29] MEDS: ZINC TUBE (07:41)
[2025-04-29] MEDS: VITAMIN B1 TUBE (07:41)
--- NOTE | 2025-04-29 08:13 | W.PN.HOSP.TC ---
Addendum entered and electronically signed by Pedro Contreras MD 04/29/25 16:47:
I saw and evaluated the patient. I reviewed the resident�s note and agree with findings and plan as documented in the resident�s note.
59-year-old man with multiple medical problems
Exam unchanged patient is mostly drowsy arousable with pain stimulating him but he does not answer any questions for me
NG/Dobbhoff tube in
Antibiotics are continued for fever and Proteus and Klebsiella sepsis
Source is likely decubitus ulcers
Surgery is going to perform debridement tomorrow
ALENA is also requested from cardiology will be performed tomorrow also.
I tried multiple times to reach the patient's daughters without success.
Patient was made DNR by patient's sister who has been involved in his care all along and I agree that for this man who is sick with multiple medical problems and DNR is very appropriate. Until I am able to reach patient's daughters I will not
reverse the DNR status as I think medically also this makes perfect sense for the patient to be a DNR.
Sister states that she has a document from [facility] and which states that the patient wanted her to make medical decisions and she has been involved in his care.
She also stated that patient was living 20 minutes from his children and their mother until he moved to [facility] but they never visited him for the past 3 years. They called him infrequently and that said.
Patient's prognosis poor given his mental status, dialysis, decubitus ulcer, multiple other medical problems
I am not able to leave any messages from the daughters as there is no mailbox set up.
Case discussed with cardiology, surgery, nursing, sister
Total time spent over 50 minutes
Original Note:
Today's Communication/Plan
-
NPO and heparin on hold at 6 am for sacral debridement
Continue zosyn
Continue tube feeds
possible ALENA tmrw in OR -appreciate cards
Assessment / Plan
Assessment / Plan
59 y/o patient had a prolonged hospitalization at [facility] January 11, 2025 to March 17, 2025 for intractable back pain, catheter associated infection, Klebsiella bacteremia. On long-term IV antibiotics cefepime and daptomycin with HD here
for acute change in mental status. Patient was obtunded on arrival and hypotensive. Baseline intermittently confused and bedbound since November 2024 per POA. Able to talk to sister on the phone at baseline.
04/23/25 18:00 Sacral Wound Culture - Preliminary
04/23/25 18:00 Sacral Gram Stain - Preliminary
CT Head: No acute intracranial abnormality noted.There are mild/moderate periventricular and subcortical white matter hypodensities which are nonspecific, however likely sequelae of chronic small vessel ischemic disease.
EEG 04/11/2025: Diffuse cortical dysfunction without focal abnormality. No seizures activity.
Echo 04/11/2025: TDS. EF 60-65%, no RWMA.
MRI brain 04/13/25: There are small foci of restricted diffusion involving the bilateral frontoparietal white matter, the left frontal white matter more anteriorly in the right basal ganglia consistent with acute/subacute infarctions. These may be
embolic in nature given the multivessel territory. Mild atrophy with sequelae of moderate chronic small vessel ischemic disease. Prominent blooming artifact along the left paramedian parietal lobe which is likely sequelae of prior
hemorrhage/hematoma.
CT A/P w/IV contrast 04/15/25: Limited exam, anasarca, splenomegaly, atrophic bilateral kidneys, proctitis indeterminate etiology, diffuse wall thickening of the urinary bladder outlet obstruction without source neurogenic bladder. Small focus of
gas in the bladder. Recent fracture of greater trochanter of right femur. Osseous destructive process of the T8-T9. Abnormal lucent and sclerotic appearance of the bones likely renal osteodystrophy
R Hip x-ray 04/17/25: Findings suggesting subacute fracture of the right greater trochanter.
CXR 04/23: Mild pulmonary vascular congestion. Mild hazy opacity in the right lung base, which could represent atelectasis or pneumonia.
#Acute/subacute CVAs :
-MRI brain above, likely embolic in nature
-should continued aggressive care be desired, work up for other causes of hypercoagulable state per heme/onc
-as per cards, no ALENA at this time as too high risk for aspiration with nearly obtunded state - Cardiology aware of possible ALENA during sacral debridement. Appreciate cards.
#Acute metabolic encephalopathy
-Multifactorial due to hypotension, polypharmacy, hypovolemia, (possibly) acute/subacute CVAs, and likely vascular dementia
-started on IV Synthroid, endocrine saw in c/s
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
-EEG without seizure activity
-Cont to hold gabapentin/Haldol
-Dobhoff placed on 04/18/25 for feeds - replaced 04/28/25 because it got clogged
-As pt's sister wants to continue aggressive care, GI consulted for PEG placement-timing to be determined by GI - PEG and sacral debridement now to be done separately with agreement between general surgery and GI.
#Febrile
#H/O VRE and Klebsiella bacteremia:
-admitted on daptomycin/cefepime and transitioned to IV Zosyn per ID. Now off abx as per ID as d/c records indicate completion of antibiotics at [place] and unclear as to why they were started at [facility]. Cultures were negative and pt was
afebrile.
-04/23/25AM temp 101.2 F. Septic w/u with BCxs (which are NGTD) and CXR (as above). Surgery following, likely sacral ulcer debridement 04/28. Abx ordered but stopped by ID.
-Zosyn started 04/26/2025 to cover for positive blood cultures with gram-negative rods, possible source infected sacral decubitus ulcer - febrile overnight and WBC uptrending
-Infectious disease following
#Pancytopenia:
-anemia likely secondary to chronic kidney disease
-BMBx and MM work up was done at [facility] revealing no BM or genetic mutations
-Heme/onc appreciated for possible eval for TTP, no TTP as no schistocytes and normal LDH, antibody panels for other causes of hypercoagulable states pending
-Status post 2 units of PRBCs this admission
Thrombocytopenia and leukopenia resolved
#Anxiety/depression
-Psychiatric valuation appreciated. BuSpar discontinued.
-Taper off lexapro per psych. 10mg daily for 7 days then discontinue on 05/07.
#Lupus anticoagulant positive likely contributing to hypercoagulable state. Heparin bridge started. Bridged to warfarin once PEG tube is placed
#Hypothyroidism-started on Synthroid - Endocrine recommends increase from 50 to 75 levothyroxine IV as he remains obtunded to see if it helps - recheck TSH on 05/[address] Duggan know
#Elevated troponin, nonischemic myocardial injury and due to underlying ESRD
#Chronic HFpEF: cont BB
#ESRD: cont HD M/W/F, renal following
#PAF: Cont BB/heparin drip
#? Metastatic disease: Hospital records from [place] revealed concerns for metastatic disease after MRI of spine done. Some proctocolitis of bowels noted on imaging as well. CT A/P revealed no obvious metastatic disease
#Diarrhea: C diff NEG - smells like c.diff to nursing - c.diff (-)
#R greater trochanteric femur fracture: No surgical intervention required per ortho.
#Essential HTN: BB with holding parameters
#HLD: Cont statin
#Hypokalemia, replete prn
#Hypophosphatemia, replete
#Bedbound since November 2024 with intermittent confusion at baseline
#DM2: SSI/accuchecks
#Concern for vascular dementia
#Amputation of the left toes 1-3
#Osseous destruction of T8-T9
#Splenomegaly
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
#Wounds:
-Unstageable sacral pressure injury, likely wound debridement by surgery 04/28 - likely 04/30 per general surgery. NPO and hold heparin drip at 6am tomorrow.
-stage I B/L heel pressure injury
-wound care
-Tylenol 1,000mg TID for pain
- Will also start oxycodone 2.5 mg every 6 hours-Sister does not think he has a true allergy. Discussed with her and she is okay with starting.
# DVT prophylaxis-heparin
# DNR Status now
Prognosis poor given multiple medical conditions and mental status. Ongoing discussions regarding goals of care with daughters and sister. Sister is not POA so now attempting to get daughters involved. Dr. Alexander reached out to
them yesterday and they said they wanted to think about it before making a decision for hospice.
Anticipated Discharge: > 48 hours
Subjective/Interval History
-
Date of Service: April 29, 2025
Remains obtunded. Febrile overnight. Stools becoming more solid so rectal trumpet removed.
Objective Data
-
Labs:
Laboratory Results
04/28/25 04/29/25 04/29/25
23:43 04:51 06:55
WBC 19.7 H
Hgb 8.9 L
Hct 27.6 L
Plt Count 248
APTT 62.5 H Pending
Sodium 132 L
Potassium 3.5
Chloride 99
Carbon Dioxide 28
BUN 52 H
Creatinine 2.1 H
Glucose 168 H
Calcium 9.7
Total Bilirubin 0.7
AST 16 L
ALT 12
Alkaline Phosphatase 281 H
Vital Signs:
Vital Signs
Temp Pulse Resp BP Pulse Ox
101.0 F H 80 23 119/60 97
04/29/25 03:00 04/29/25 04:00 04/29/25 04:00 04/29/25 04:00 04/29/25 04:00
I&O
04/28/25 04/29/25 04/30/25
06:59 06:59 06:59
Intake Total 2099
Output Total 0 / 0
Balance 2099
Review of Systems
-
Unable to obtain full review of systems at this time due to: Dementia and Acuity
Physical Exam
-
General: Appears Chronically Ill
Respiratory: Clear to Auscultation
Cardiac: Regular Rhythm and S1/S2
GI: Soft, Nondistended and Normal Bowel Sounds
Musculoskeletal: No Cyanosis and Other (Increased right upper extremity edema compared to left, missing toes on right foot)
[2025-04-29] MEDS: PROTONIX IV 40 MG IV (08:26)
[2025-04-29] MEDS: NSS (PRESERVATIVE FREE) 10 ML IV (08:27)
[2025-04-29] MEDS: LEXAPRO 10 MG TUBE (08:28)
[2025-04-29] MEDS: ZINC 50 MG TUBE (08:28)
[2025-04-29] MEDS: DAILY VITAMIN/CENTRUM 15 ML TUBE (08:28)
[2025-04-29] MEDS: VITAMIN B1 100 MG TUBE (08:28)
[2025-04-29] MEDS: TYLENOL 1000 MG TUBE ×3 (08:28→23:17)
[2025-04-29] MEDS: SANTYL OINTMENT 1 APPLIC TOPICAL (08:28)
[2025-04-29] MEDS: LOPRESSOR 50 MG TUBE ×2 (08:28→23:22)
[2025-04-29] MEDS: DESENEX/MITRAZOL/ZEASORB 1 APPLIC TOPICAL ×2 (08:29→23:22)
[2025-04-29] MEDS: DAKIN'S SOLUTION 0.125% 1/4 STRENGTH 473 ML TOPICAL (08:29)
--- NOTE | 2025-04-29 09:41 | W.PN.NEPH.PH ---
Today's Communication / Plan
-
HD tomorrow
Assessment/Plan
-
59M [facility] resident ESRD MWF roxanne Eliquis HTN HLD DM PAD toe amputations CHF Anxiety Depression suspected underlying vascular dementia recent prolonged hospitalization [facility] January 11 to March 17 for intractable back pain catheter
associated infection VR and Klebsiella bacteremia (following which he was discharged to [facility] with usp IV abx Cefipime and Daptomycin to be given with HD- sent by SNF for evaluation AMS, normally AOx3 at baseline, essentially obtunded on
arrival with associate severe hypotension systolic 70s. Improved with IVF bolus,
Impression
ESRD MWF [facility]
Sepsis
A-fib
Dementia/AMS
CVA
History of Klebsiella pneumonia due to catheter in December 2024 at [facility]
Plan:
HD tomorrow via [facility]
ethics consult in progress
possible PEG (Requested by family)
overall prognosis is poor, he will be unlikely to ever leave [place]
-
-
Date of Service: April 29, 2025
CC / HPI / ROS
-
Chief Complaint:
AMS, ESRD
History of Present Illness:
Anemia stable at 8.9 , WBC up at 19.7
BP stable
sodium at 132
End-stage renal disease on Monday dialysis cath
tolerated HD yesterday
Review of Systems:
DHT replaced
noncommunicative
Labs
-
Labs:
WBC 19.7 10^3/uL (4.8-10.8) H 04/29/25 04:51
RBC 3.10 10^6/uL (4.70-6.10) L 04/29/25 04:51
Hgb 8.9 g/dL (13.0-18.0) L 04/29/25 04:51
Hct 27.6 % (39.0-52.0) L 04/29/25 04:51
Plt Count 248 10^3/uL (130-400) 04/29/25 04:51
Sodium 132 mmol/L (135-145) L 04/29/25 04:51
Potassium 3.5 mmol/L (3.5-5.1) 04/29/25 04:51
Chloride 99 mmol/L (98-107) 04/29/25 04:51
Carbon Dioxide 28 mmol/L (22-30) 04/29/25 04:51
BUN 52 mg/dl (9-20) H 04/29/25 04:51
Creatinine 2.1 mg/dL (0.7-1.3) H 04/29/25 04:51
eGFR 35.81 04/29/25 04:51
Glucose 168 mg/dl (70-99) H 04/29/25 04:51
Calcium 9.7 mg/dl (8.4-10.2) 04/29/25 04:51
Phosphorus 1.5 mg/dl (2.5-4.5) L 04/20/25 04:29
Albumin 2.2 g/dl (3.5-5.0) L 04/29/25 04:51
Physical Exam
-
Vital Signs:
Vital Signs
Temp Pulse Resp BP Pulse Ox
98.0 F 79 23 125/60 97
04/29/25 07:30 04/29/25 08:28 04/29/25 04:00 04/29/25 08:28 04/29/25 04:00
Cardiovascular:: Regular rate and rhythm
Respiratory:: Bilateral: Coarse
Lung Excursion:: Normal
Abdomen:: Nontender and Soft
Bowel Sounds:: Normal
Extremity Edema:: None: Bilateral:
--- NOTE | 2025-04-29 10:00 | PTCARENOTE ---
Patient received from warehouse worker 2nd shift. Patient resting comfortably in bed. AAOx0, VSS. Patient spike fever overnight. Heparin gtt and Tubefeed stopped in preparation for procedure, both restarted and procedure to take place tomorrow. Tubefeed is
Nepro with carbsteady @ 50mL/hr (goal) with 0 H2O flush through Dobhoff. Heparin gtt restarted at 2500 units/hr, PTT to be drawn in 6hrs. Continuing ABX. Wound Care. No testing scheduled at this time. Call martines in reach.
--- NOTE | 2025-04-29 11:32 | W.PN.UPDATE ---
Update Note
Progress Note Update
Plan for debridement of sacral pressure wound in the OR tomorrow, pt is added to the schedule.
Please hold TF and heparin gtt at 6am.
Daughter Kamryn unreachable today.
Sister Geovanni updated by phone.
[2025-04-29 12:14] LABS: Glucose - Point of Care 224 mg/dl (70-99)
--- NOTE | 2025-04-29 13:25 | W.PN.CD ---
Today's Communication / Plan
-
NPO after midnight
ALENA in OR prior to debridement if consent can be obtained over the phone
Impression / Plan
-
I/P: 59M with paroxysmal atrial fibrillation on Eliquis, HTN, HLD, ESRD on HD, PAD (toe amputation), anxiety/depression, anemia, suspected vascular dementia, and DM who presented from facility with change in mental status with somnolence and not
responding to commands.
Outpatient reconsignment clerk: None, will be Dr. Burt if he continues to follow here
Bacteremia
-Febrile this morning (101.0) and leukocytosis is trending up
-Infectious disease following
-Blood culture 04/26/2025: Positive for Klebsiella aerogenes in both bottles
-TTE: TDS, no endocarditis seen
Sacral wound - debridement planned with Dr. Alexander tomorrow 04/30/2025
Acute/subacute CVAs
-MRI revealed small foci of restricted diffusion involving the bilateral frontoparietal white matter, the left frontal white matter more anteriorly in the right basal ganglia consistent with acute/subacute infarctions
-Likely embolic
Paroxysmal atrial fibrillation
- In sinus
- Oral Anticoagulation: Eliquis on hold with procedures continue heparin gtt, he should be on 5mg BID at discharge (he was on 2.5mg BID prior to arrival, weight < 60kg, creatinine > 1.5)
- [id number]: score at least 3 (Diabetes Mellitus, prior Stroke/TIA)
Change in mental status
-Ongoing, non responsive to verbal stimuli, per primary
-PEG tube timing TBD per primary and GS
Abnormal troponin, peak 0.056, non-ischemic myocardial injury in setting of renal disease and hypotension, acute illness
ESRD, on HD, per Nephrology
Bedbound, chronic, since 11/2024
SUBJECTIVE:
Notes reviewed.
Today daughter has been unreachable. His sister knows we need to speak with his daughter.
Physical Exam
Vital Signs/Labs
Vital Signs
Temp Pulse Resp BP Pulse Ox
97.9 F 73 19 129/67 97
04/29/25 11:25 04/29/25 12:00 04/29/25 12:00 04/29/25 12:00 04/29/25 12:09
04/28/25 04/29/25 04/30/25
06:59 06:59 06:59
Actual Weight 67.9 kg 66.3 kg
04/29/25 04:51
04/29/25 04:51
PT 19.6 Sec (11.4-14.6) H 04/24/25 05:43
INR 1.60 04/24/25 05:43
APTT Cancelled 04/29/25 06:55
Magnesium 1.7 mg/dl (1.6-2.3) 04/24/25 05:43
Free T4 0.60 ng/dl (0.78-2.19) L 04/21/25 13:38
Physical Exam
Constitutional: No acute distress and Comfortable
EENT: Anicteric and Moist mucous membranes
Cardiovascular: Rhythm & rate is regular and Pedal edema is absent
Respiratory: Respiratory effort normal and Lungs clear to auscul.
GI: Soft and Distention absent
Neuro/Psych: Other (Does not respond to verbal commands)
Other: Skin (warm and dry)
Data Reviewed
-
Date of Service: April 29, 2025
[2025-04-29] MEDS: NOVOLOG FLEXPEN-MODERATE RESISTANCE 3 UNITS SC (13:29)
--- NOTE | 2025-04-29 13:36 | W.PN.ID1 ---
Date of Service
Date of Service: April 29, 2025
Today's Communication
Continue antibiotics.
Assessment / Plan
Bacteremia
Fever - intermittent
Leukocytosis; trending up.
Encephalopathy; ongoing
- ?TME ?CVA
Hx VRE / Klebsiella infection 2* HD cath CLABSI (at [facility])
- Previously on dapto / cefepime when arrived from nursing facility.
- Completed course of therapy
Unstageable sacral wound
Penile dermal necrosis
Vascular dementia
P A-fib (on Eliquis)
ESRD�HD (MWF)
DM
PAD
CHF
Anxiety/depression
Recommendations:
OSH 01/27/25 Bcx: VRE (sensitive to amp, dapto, linezolid)
Klebsiella aerogenes (Sensitive to: t/sulfa, FQ, tobra, gent, pip/tazo, cefepime (<2), ceftaz (4))
Reviewed extensive records from [facility]. According to those records, the patient had VRE and Klebsiella bacteremia (as above) attributed to his dialysis cath, which was changed in mid January. Per his discharge summary, he completed a
course of antibiotics prior to being discharged. He arrived here to [facility] from [facility] on antibiotics (daptomycin / cefepime). Patient appears to have been restarted on antibiotics upon admission to [facility], but for unclear
reasons. Discharge med list from [facility] do not show that any antibiotics were to be continued.
Blood here cx's neg to date.
Antibiotics previously discontinued 04/16/2025.
New Fevers, leukocytosis
- 04/23 blood cx's blood culture with gram-negative rods, but could not speciate.
- 04/23 CXR: mild opacity RLL atelectasis vs PNA
- 04/26/25 blood cx's with Klebsiella aerogenes and Proteus vulgaris. These organisms were also recovered from the unstageable sacral decubiti.
-04/23 Sacral wound polymicrobial growth.
- Repeat blood cx's pending.
- Potential sources of bacteremia include sacral wound, HD line.
-Continue Zosyn (d#4)
-Continue local care to sacral wound. For tentative debridement tomorrow.
Overall prognosis at this point appears exceedingly poor. Patient with poor-to-no wound healing capacity given underlying cachexia, low albumin and protein stores.
Patient is hospice appropriate.
Chart reviewed. Medical POA continues to desire aggressive care over measures that would focusing on comfort.
����������������������������������������������������������
Chief Complaint
-: Fever, Bacteremia and Other (Change in mental status, failure to thrive)
Subjective / Review of Systems
Patient seen and examined. No significant changes overnight.
Vital Signs / Physical Exam
Vital Signs
Vital Signs
Temp Pulse Resp BP Pulse Ox
97.9 F 73 19 129/67 97
04/29/25 11:25 04/29/25 12:00 04/29/25 12:00 04/29/25 12:00 04/29/25 12:09
Physical Exam
Constitutional: Acutely Ill, Chronically Ill and Cachetic
Head: Other (Temporal wasting. Nasal Dobbhoff in place.)
Eyes: Sclera Anicteric
Cardiovascular: S1/S2; Negative S3/S4
Pulmonary: Non Labored; Negative Wheezes
Gastrointestinal: Soft and Non Distended
Extremities: Negative Edema, Cyanosis or Erythema
Wound: Other (Sacral area with necrotic wound with significant malodor. Mild periwound erythema. Wound is unstageable at this time.)
Neurological: Awake and Other (Nonverbal)
Lines: HD Cath (Left ACW)
Objective Data
Lab Data
Lab Results
04/29/25 04:51
04/29/25 04:51
PT 19.6 Sec (11.4-14.6) H 04/24/25 05:43
INR 1.60 04/24/25 05:43
APTT Cancelled 04/29/25 06:55
Estimated Creat Clear 36 ml/min 04/29/25 04:51
Lactic Acid Cancelled 04/10/25 14:15
Total Bilirubin 0.7 mg/dl (0.2-1.3) 04/29/25 04:51
AST 16 U/L (17-59) L 04/29/25 04:51
ALT 12 U/L (0-50) 04/29/25 04:51
Alkaline Phosphatase 281 U/L (38-126) H 04/29/25 04:51
Most recent labs reviewed.
Micro Results:
04/23/25 18:00 Wound Culture - Final
Sacral Proteus vulgaris
Klebsiella aerogenes
Enterococcus faecalis - VRE
Streptococcus species
Gram Stain - Final
04/23/25 14:38 Blood Culture - Preliminary
Blood/Venous Gram negative bacilli
Gram Stain - Preliminary
04/26/25 11:09 Blood Culture - Preliminary
Blood/Venous Klebsiella aerogenes
Gram Stain - Preliminary
04/26/25 10:15 Blood Culture - Preliminary
Blood/Venous Proteus vulgaris
Klebsiella aerogenes
Gram Stain - Preliminary
04/29/25 04:10 C. difficile GDH Antigen & Toxins - Final
Feces/Stool Negative for toxigenic C.difficile
04/28/25 03:18 Blood Culture - Preliminary
Blood/Venous Positive culture in progress
Gram Stain - Preliminary
04/28/25 03:23 Blood Culture - Preliminary
Blood/Venous No Growth in 24 hours- Final report to follow
04/23/25 18:00 Blood Culture - Final
Blood/Venous No Growth - Final Report
04/10/25 12:30 Blood Culture - Final
Blood/Venous No Growth - Final Report
04/10/25 10:12 Blood Culture - Final
Blood/Venous No Growth - Final Report
04/13/25 14:55 C. difficile GDH Antigen & Toxins - Final
Feces/Stool Negative for toxigenic C.difficile
04/11/25 04:12 MRSA Screen - Final
Nose Staph aureus MRSA
Imaging:
04/15/2025 CT abdomen/pelvis with contrast: rectum shows concentric wall thickening compatible with some form of proctitis. Perirectal inflammatory stranding is noted, but no signs of free fluid or drainable collection. Bones are diffusely
demineralized. Osseous destructive process at T8-T9. Recent fracture of the greater trochanter of the right femur is noted. Please see full dictation for additional detail.
04/09/2025 MRI brain without contrast: There are small foci of restricted diffusion involving the bilateral frontoparietal white matter, the left frontal white matter more anteriorly in the right basal ganglia consistent with acute/subacute
infarctions. These may be embolic in nature given the multivessel territory. Mild atrophy with sequelae of moderate chronic small vessel ischemic disease.
Prominent blooming artifact along the left paramedian parietal lobe which is likely sequelae of prior hemorrhage/hematoma.
--- NOTE | 2025-04-29 14:28 | CM ---
CM reviewed chart
Pt remains in IMU
Plan for debridement tomorrow and continued HD
Pt has been receiving TF via DHT
Ongoing GOC discussions with family
Pt has been a STR at [facility] with plans to convert to [facility]
SNF has requested auth for SNF return
CM will continue to follow for dc planning
Discharge Disposition- return to [facility] SNF
[2025-04-29 15:37] LABS: APTT 101.3 Sec (23.4-35.0)
[2025-04-29] MEDS: LEVOTHROID 75 MCG IV (17:00)
[2025-04-29] MEDS: CRESTOR 10 MG TUBE (17:00)
[2025-04-29] MEDS: HEPARIN 25000 UNITS/250 ML IV (18:17)
[2025-04-29] MEDS: NOVOLOG FLEXPEN-MODERATE RESISTANCE SC (18:29)
[2025-04-29 18:38] LABS: Glucose - Point of Care 147 mg/dl (70-99)
[2025-04-29 23:34] LABS: APTT 131.8 Sec (23.4-35.0)
[2025-04-30] VITALS (15 sets, daily range): BP systolic 103–135; BP diastolic 51–70; BMI 19.5
[2025-04-30 00:01] LABS: Glucose - Point of Care 151 mg/dl (70-99)
[2025-04-30] MEDS: NOVOLOG FLEXPEN-MODERATE RESISTANCE 1 UNITS SC (00:20)
[2025-04-30] MEDS: NOVOLOG FLEXPEN 4 UNITS SC ×3 (00:20→23:26)
[2025-04-30 05:17] LABS: Glucose - Point of Care 100 mg/dl (70-99)
[2025-04-30] MEDS: ZOSYN 50 IV ×3 (06:08→21:40)
[2025-04-30] MEDS: NOVOLOG FLEXPEN-MODERATE RESISTANCE SC ×3 (06:08→17:32)
[2025-04-30] MEDS: NOVOLOG FLEXPEN SC ×2 (06:44→14:31)
[2025-04-30 07:01] LABS: ALT (SGPT) 13 U/L (0-50); AST (SGOT) 19 U/L (17-59); Albumin 2.1 g/dl (3.5-5.0); Alkaline Phosphatase 279 U/L (38-126); Blood Urea Nitrogen 69 mg/dl (9-20); Calcium 9.8 mg/dl (8.4-10.2); Carbon Dioxide 25 mmol/L (22-30); Chloride 99 mmol/L (98-107); Estimated Creatinine Clearance 30 ml/min; Glucose 99 mg/dl (70-99); Potassium 3.6 mmol/L (3.5-5.1); Sodium 131 mmol/L (135-145); Total Protein 4.7 g/dl (6.3-8.2); eGFR 29.05
[2025-04-30 07:10] LABS: Hematocrit 26.9 % (39.0-52.0); Hemoglobin 8.8 g/dL (13.0-18.0); Mean Corp Hgb Conc. 32.7 g/dL (33.0-37.0); Mean Corpuscular Volume 87.3 fL (80.0-94.0); Platelet Count 237 10^3/uL (130-400); Red Cell Dist. Width 21.2 % (11.5-14.5)
--- NOTE | 2025-04-30 07:27 | PTCARENOTE ---
Assumed care of pt from dayshift RN. Pt nonverbal. NSR on monitor. SpO2 98% on RA. VS and and assessment as documented. TF and heparin gtt on hold per MD order. Plan for pt to go to OR today. Pre-operative surgical hygiene completed including full
bed change. Wound care completed. Pt resting in bed with b/t wrist restraints in place and bed alarm on.
[2025-04-30] MEDS: NSS (PRESERVATIVE FREE) 10 ML IV (07:30)
[2025-04-30] MEDS: SANTYL OINTMENT 1 APPLIC TOPICAL (07:30)
[2025-04-30] MEDS: DAILY VITAMIN/CENTRUM 15 ML TUBE (07:30)
[2025-04-30] MEDS: ZINC 50 MG TUBE (07:31)
[2025-04-30] MEDS: PROTONIX IV 40 MG IV (07:31)
[2025-04-30] MEDS: LEXAPRO 10 MG TUBE (07:31)
[2025-04-30] MEDS: TYLENOL 1000 MG TUBE ×3 (07:31→21:39)
[2025-04-30] MEDS: DESENEX/MITRAZOL/ZEASORB 1 APPLIC TOPICAL ×2 (07:31→21:40)
[2025-04-30] MEDS: LOPRESSOR TUBE ×2 (07:31→07:35)
[2025-04-30] MEDS: VITAMIN B1 100 MG TUBE (07:31)
[2025-04-30] MEDS: DAKIN'S SOLUTION 0.125% 1/4 STRENGTH 473 ML TOPICAL (07:32)
--- NOTE | 2025-04-30 07:44 | W.PN.HOSP.TC ---
Addendum entered and electronically signed by Pedro Contreras MD 04/30/25 13:11:
I saw and evaluated the patient. I reviewed the resident�s note and agree with findings and plan as documented in the resident�s note.
Patient still nonverbal opens his eyes and but not able to communicate he has this random chewing movements of his face
Sacral decubitus ulcer with black eschar-going for debridement today
Plan is also for him to get a ALENA
Eventual PEG tube placement
I was finally able to reach patient's daughter Kamryn [phone] today. She stated that she and her sister both were listening to my phone conversation.
They spoke to their and and was told that patient was able to say a random joke about a football team the other day when she was here. They want to give him some more time therefore want to proceed with PEG tube.
CODE STATUS addressed and they both agree that patient should continue to be a DNR. I explained what a DNR means.
Poor quality of life and poor prognosis also discussed with daughters.
Case discussed with infectious disease
D/W rn
d/w hds NURSE
d/W nephrology
Time spent more than 50 minutes today
Original Note:
Today's Communication/Plan
-
ALENA and sacral wound debridement today
HD
Zosyn
Restart heparin and tube feeds after procedure
Assessment / Plan
Assessment / Plan
59 y/o patient had a prolonged hospitalization at [facility] January 11, 2025 to March 17, 2025 for intractable back pain, catheter associated infection, Klebsiella bacteremia. On long-term IV antibiotics cefepime and daptomycin with HD here
for acute change in mental status. Patient was obtunded on arrival and hypotensive. Baseline intermittently confused and bedbound since November 2024 per POA. Able to talk to sister on the phone at baseline.
04/23/25 18:00 Sacral Wound Culture - Preliminary
04/23/25 18:00 Sacral Gram Stain - Preliminary
CT Head: No acute intracranial abnormality noted.There are mild/moderate periventricular and subcortical white matter hypodensities which are nonspecific, however likely sequelae of chronic small vessel ischemic disease.
EEG 04/11/2025: Diffuse cortical dysfunction without focal abnormality. No seizures activity.
Echo 04/11/2025: TDS. EF 60-65%, no RWMA.
MRI brain 04/13/25: There are small foci of restricted diffusion involving the bilateral frontoparietal white matter, the left frontal white matter more anteriorly in the right basal ganglia consistent with acute/subacute infarctions. These may be
embolic in nature given the multivessel territory. Mild atrophy with sequelae of moderate chronic small vessel ischemic disease. Prominent blooming artifact along the left paramedian parietal lobe which is likely sequelae of prior
hemorrhage/hematoma.
CT A/P w/IV contrast 04/15/25: Limited exam, anasarca, splenomegaly, atrophic bilateral kidneys, proctitis indeterminate etiology, diffuse wall thickening of the urinary bladder outlet obstruction without source neurogenic bladder. Small focus of
gas in the bladder. Recent fracture of greater trochanter of right femur. Osseous destructive process of the T8-T9. Abnormal lucent and sclerotic appearance of the bones likely renal osteodystrophy
R Hip x-ray 04/17/25: Findings suggesting subacute fracture of the right greater trochanter.
CXR 04/23: Mild pulmonary vascular congestion. Mild hazy opacity in the right lung base, which could represent atelectasis or pneumonia.
#Acute/subacute CVAs :
-MRI brain above, likely embolic in nature
-should continued aggressive care be desired, work up for other causes of hypercoagulable state per heme/onc
-as per cards, no ALENA at this time as too high risk for aspiration with nearly obtunded state - ALENA with wound debridement today in OR
#Acute metabolic encephalopathy
-Multifactorial due to hypotension, polypharmacy, hypovolemia, (possibly) acute/subacute CVAs, and likely vascular dementia
-started on IV Synthroid, endocrine saw in c/s
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
-EEG without seizure activity
-Cont to hold gabapentin/Haldol
-Dobhoff placed on 04/18/25 for feeds - replaced 04/28/25 because it got clogged
-As pt's sister wants to continue aggressive care, GI consulted for PEG placement-timing to be determined by GI - PEG and sacral debridement now to be done separately with agreement between general surgery and GI.
#Febrile
#H/O VRE and Klebsiella bacteremia:
-admitted on daptomycin/cefepime and transitioned to IV Zosyn per ID. Now off abx as per ID as d/c records indicate completion of antibiotics at [facility] and unclear as to why they were started at [facility]. Cultures were negative and pt was
afebrile.
-04/23/25AM temp 101.2 F. Septic w/u with BCxs (which are NGTD) and CXR (as above). Surgery following, likely sacral ulcer debridement 04/28. Abx ordered but stopped by ID.
-Zosyn started 04/26/2025 to cover for positive blood cultures with klebsiella, possible source infected sacral decubitus ulcer as would cultures also revealed klebsiella (also VRE)- febrile 04/29 and WBC 19.7 > 19.0
-Infectious disease following
#Pancytopenia:
-anemia likely secondary to chronic kidney disease
-BMBx and MM work up was done at [facility] revealing no BM or genetic mutations
-Heme/onc appreciated for possible eval for TTP, no TTP as no schistocytes and normal LDH, antibody panels for other causes of hypercoagulable states pending
-Status post 2 units of PRBCs this admission
Thrombocytopenia and leukopenia resolved
#Anxiety/depression
-Psychiatric valuation appreciated. BuSpar discontinued.
-Taper off lexapro per psych. 10mg daily for 7 days then discontinue on 05/07.
#Lupus anticoagulant positive likely contributing to hypercoagulable state. Heparin bridge started. Bridged to warfarin once PEG tube is placed... unsure when PEG will be placed
#Hypothyroidism-started on Synthroid - Endocrine recommends increase from 50 to 75 levothyroxine IV as he remains obtunded to see if it helps - recheck TSH on 05/[address] Duggan know
#Elevated troponin, nonischemic myocardial injury and due to underlying ESRD
#Chronic HFpEF: cont BB
#ESRD: cont HD M/W/F, renal following
#PAF: Cont BB/heparin drip
#? Metastatic disease: Hospital records from [facility] revealed concerns for metastatic disease after MRI of spine done. Some proctocolitis of bowels noted on imaging as well. CT A/P revealed no obvious metastatic disease
#Diarrhea: C diff NEG 04/13, c.diff (-) 04/29
#R greater trochanteric femur fracture: No surgical intervention required per ortho.
#Essential HTN: BB with holding parameters
#HLD: Cont statin
#Hypokalemia, replete prn
#Hypophosphatemia, replete
#Bedbound since November 2024 with intermittent confusion at baseline
#DM2: SSI/accuchecks
#Concern for vascular dementia
#Amputation of the left toes 1-3
#Osseous destruction of T8-T9
#Splenomegaly
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
#Wounds:
-Unstageable sacral pressure injury, likely wound debridement by surgery 04/28 -OR today around 12p after dialysis. Heparin and tube feeds on hold.
-stage I B/L heel pressure injury
-wound care
-Tylenol 1,000mg TID for pain
- Will also start oxycodone 2.5 mg every 6 hours-Sister does not think he has a true allergy
# DVT prophylaxis-heparin
# DNR Status now
Therapy becoming medically futile. He appears hospice appropriate. He has no likelihood of healing after debridement and will likely have a chronic wound especially considering his low protein stores.
Anticipated Discharge: > 48 hours
Subjective/Interval History
-
Date of Service: April 30, 2025
Remains completely obtunded. Off his heparin drip and tube feeds for OR today. Facial grimacing noted.
Objective Data
-
Labs:
Laboratory Results
04/29/25 04/30/25 04/30/25
23:12 06:05 09:35
WBC 19.0 H
Hgb 8.8 L
Hct 26.9 L
Plt Count 237
APTT 131.8 H Pending
Sodium 131 L
Potassium 3.6
Chloride 99
Carbon Dioxide 25
BUN 69 H
Creatinine 2.5 H
Glucose 99
Calcium 9.8
Total Bilirubin 0.8
AST 19
ALT 13
Alkaline Phosphatase 279 H
Vital Signs:
Vital Signs
Temp Pulse Resp BP Pulse Ox
97.4 F 70 22 126/67 99
04/30/25 07:00 04/30/25 07:35 04/30/25 07:16 04/30/25 07:35 04/30/25 07:16
I&O
04/29/25 04/30/25 05/01/25
06:59 06:59 06:59
Intake Total 650 / 650 350 / 350
Output Total 0 / 0
Balance 650 / 650 350 / 350
Review of Systems
-
Unable to obtain full review of systems at this time due to: Dementia and Acuity
Physical Exam
-
Respiratory: Clear to Auscultation
Cardiac: Regular Rhythm and S1/S2
GI: Soft, Nondistended and Normal Bowel Sounds
Musculoskeletal: No Cyanosis and Other (missing toes on right, increase right upper extremity swelling )
[2025-04-30] MEDS: MANNITOL 25% 12.5 GRAMS IV ×2 (08:15→10:00)
[2025-04-30] MEDS: FLEXBUMIN 25% FOR HEMODIALYSIS 12.5 GRAMS IV ×2 (08:21→10:00)
[2025-04-30] MEDS: RETACRIT 10000 UNITS IV (08:22)
--- NOTE | 2025-04-30 08:36 | PTCARENOTE ---
Patient received from second shift supervisor. Patient resting comfortably in bed. AAOx0, VSS. No events noted overnight. Heparin gtt and Tubefeed on hold for the OR and ALENA. Tubefeed is Nepro with carbsteady @ 50mL/hr (goal) with 0 H2O flush through left
nare Dobhoff. Continuing ABX. Wound do be done in OR. HD first thing this AM then to OR. Call martines in reach.
--- NOTE | 2025-04-30 10:10 | W.PN.ID1 ---
Date of Service
Date of Service: April 30, 2025
Today's Communication
Continue antibiotics
Assessment / Plan
Bacteremia
Fever - intermittent
Leukocytosis
Encephalopathy; ongoing
- ?TME ?CVA
Hx VRE / Klebsiella infection 2* HD cath CLABSI (at OSH)
- Previously on dapto / cefepime when arrived from nursing facility.
- Completed course of therapy
Unstageable sacral wound
Penile dermal necrosis
Vascular dementia
P A-fib (on Eliquis)
ESRD�HD (MWF)
DM
PAD
CHF
Anxiety/depression
Recommendations:
Fevers, leukocytosis
- 04/23 blood cx's blood culture with gram-negative rods, but could not speciate.
- 04/23 CXR: mild opacity RLL atelectasis vs PNA
- 04/26/25 blood cx's with Klebsiella aerogenes and Proteus vulgaris. These organisms were also recovered from the unstageable sacral decubiti.
-04/23 Sacral wound polymicrobial growth, including Proteus, Klebsiella, VRE (amp sensitive) and an additional strep species
\\
- Potential sources of bacteremia include sacral wound, HD line.
-Continue Zosyn (d#5)
-Continue local care to sacral wound. For tentative debridement today.
Overall prognosis at this point appears exceedingly poor to nonexistent.
Patient with poor-to-no wound healing capacity given underlying cachexia, low albumin and protein stores.
Patient is hospice appropriate.
����������������������������������������������������������
Chief Complaint
-: Fever, Bacteremia and Other (Change in mental status, failure to thrive)
Subjective / Review of Systems
Patient seen and examined. Currently on hemodialysis. Arousable to touch, but nonverbal for me.
Vital Signs / Physical Exam
Vital Signs
Vital Signs
Temp Pulse Resp BP Pulse Ox
97.4 F 70 22 126/67 99
04/30/25 07:00 04/30/25 07:35 04/30/25 07:16 04/30/25 07:35 04/30/25 07:16
Physical Exam
Constitutional: Acutely Ill, Chronically Ill and Cachetic
Head: Other (Temporal wasting. Nasal Dobbhoff in place.)
Eyes: Sclera Anicteric
Cardiovascular: S1/S2; Negative S3/S4
Pulmonary: Non Labored; Negative Wheezes
Gastrointestinal: Soft and Non Distended
Extremities: Negative Edema, Cyanosis or Erythema
Wound: Other (Sacral wound dressed.)
Neurological: Awake and Other (Nonverbal)
Lines: HD Cath (Left ACW)
Objective Data
Lab Data
Lab Results
04/30/25 06:05
04/30/25 06:05
PT 19.6 Sec (11.4-14.6) H 04/24/25 05:43
INR 1.60 04/24/25 05:43
APTT 131.8 Sec (23.4-35.0) H 04/29/25 23:12
Estimated Creat Clear 30 ml/min 04/30/25 06:05
Lactic Acid Cancelled 04/10/25 14:15
Total Bilirubin 0.8 mg/dl (0.2-1.3) 04/30/25 06:05
AST 19 U/L (17-59) 04/30/25 06:05
ALT 13 U/L (0-50) 04/30/25 06:05
Alkaline Phosphatase 279 U/L (38-126) H 04/30/25 06:05
Most recent labs reviewed.
Micro Results:
04/28/25 03:18 Blood Culture - Preliminary
Blood/Venous Klebsiella aerogenes
Gram Stain - Preliminary
04/23/25 14:38 Blood Culture - Final
Blood/Venous Gram negative bacilli
Gram Stain - Final
04/28/25 03:23 Blood Culture - Preliminary
Blood/Venous No Growth in 48 hours- Final report to follow
04/29/25 16:56 Blood Culture - Pending
Blood/Venous
04/29/25 15:06 Blood Culture - Pending
Blood/Venous
04/23/25 18:00 Wound Culture - Final
Sacral Proteus vulgaris
Klebsiella aerogenes
Enterococcus faecalis - VRE
Streptococcus species
Gram Stain - Final
04/26/25 11:09 Blood Culture - Preliminary
Blood/Venous Klebsiella aerogenes
Gram Stain - Preliminary
04/26/25 10:15 Blood Culture - Preliminary
Blood/Venous Proteus vulgaris
Klebsiella aerogenes
Gram Stain - Preliminary
04/29/25 04:10 C. difficile GDH Antigen & Toxins - Final
Feces/Stool Negative for toxigenic C.difficile
04/23/25 18:00 Blood Culture - Final
Blood/Venous No Growth - Final Report
04/10/25 12:30 Blood Culture - Final
Blood/Venous No Growth - Final Report
04/10/25 10:12 Blood Culture - Final
Blood/Venous No Growth - Final Report
04/13/25 14:55 C. difficile GDH Antigen & Toxins - Final
Feces/Stool Negative for toxigenic C.difficile
04/11/25 04:12 MRSA Screen - Final
Nose Staph aureus MRSA
Imaging:
04/15/2025 CT abdomen/pelvis with contrast: rectum shows concentric wall thickening compatible with some form of proctitis. Perirectal inflammatory stranding is noted, but no signs of free fluid or drainable collection. Bones are diffusely
demineralized. Osseous destructive process at T8-T9. Recent fracture of the greater trochanter of the right femur is noted. Please see full dictation for additional detail.
04/09/2025 MRI brain without contrast: There are small foci of restricted diffusion involving the bilateral frontoparietal white matter, the left frontal white matter more anteriorly in the right basal ganglia consistent with acute/subacute
infarctions. These may be embolic in nature given the multivessel territory. Mild atrophy with sequelae of moderate chronic small vessel ischemic disease.
Prominent blooming artifact along the left paramedian parietal lobe which is likely sequelae of prior hemorrhage/hematoma.
Care Review
Plan reviewed with: Physician (Hospitalist; Resident)
[2025-04-30] MEDS: HEPARIN 3600 UNITS INTRACATH (10:42)
--- NOTE | 2025-04-30 10:59 | W.PN.NEPH.HD ---
Assessment
-
pt seen during HD
vitals stable
UF as tolerated
CVC functions fine
for PEG and debridement of dec wound
Progress Note - Hemodialysis
-
Date of Service: April 30, 2025
Duration: 30 minutes and 3 hours
Potassium Bath: 4
Calcium Bath: 2.5
Opti-Dialyzer: 160
Ultrafiltration: Other (1-1.5kg)
Blood Flow: 400
Dialysate Flow: 600
Heparin: no
EPO: [id number]
--- NOTE | 2025-04-30 11:12 | W.PN.CD ---
Addendum entered and electronically signed by Kenneth Henry MD 04/30/25 11:22:
Patient higher risk for procedures considering medical conditions below and mental status
Original Note:
Today's Communication / Plan
-
Patient getting dialysis this morning when he was evaluated.
Per previous discussion with Dr. Le patient having wound debridement in OR later today with plans for ALENA while patient under anesthesia. Procedure and risks have been reviewed by Dr. Le with family. Consent has been signed. Patient
will be going to OR later today after dialysis completed
Impression / Plan
-
I/P: 59M with paroxysmal atrial fibrillation on Eliquis, HTN, HLD, ESRD on HD, PAD (toe amputation), anxiety/depression, anemia, suspected vascular dementia, and DM who presented from facility with change in mental status with somnolence and not
responding to commands.
Outpatient death claim clerk: None, will be Dr. Burt if he continues to follow here
Bacteremia
-Febrile this morning (101.0) and leukocytosis is trending up
-Infectious disease following
-Blood culture 04/26/2025: Positive for Klebsiella aerogenes in both bottles
-TTE: TDS, no endocarditis seen
Sacral wound - debridement planned with Dr. Alexander tomorrow 04/30/2025
Acute/subacute CVAs
-MRI revealed small foci of restricted diffusion involving the bilateral frontoparietal white matter, the left frontal white matter more anteriorly in the right basal ganglia consistent with acute/subacute infarctions
-Likely embolic
Paroxysmal atrial fibrillation
- In sinus
- Oral Anticoagulation: Eliquis on hold with procedures continue heparin gtt, he should be on 5mg BID at discharge (he was on 2.5mg BID prior to arrival, weight < 60kg, creatinine > 1.5)
- [id number]: score at least 3 (Diabetes Mellitus, prior Stroke/TIA)
Change in mental status
-Treatment directed by primary team
-Ongoing, non responsive to verbal stimuli
-PEG tube timing TBD per primary and GS
Abnormal troponin, peak 0.056, non-ischemic myocardial injury in setting of renal disease and hypotension, acute illness
ESRD, on HD, per Nephrology
Bedbound, chronic, since 11/2024
SUBJECTIVE:
Patient unable to provide history
Physical Exam
Vital Signs/Labs
Vital Signs
Temp Pulse Resp BP Pulse Ox
97.4 F 70 22 126/67 99
04/30/25 07:00 04/30/25 07:35 04/30/25 07:16 04/30/25 07:35 04/30/25 07:16
04/29/25 04/30/25 05/01/25
06:59 06:59 06:59
Actual Weight 66.3 kg 65.9 kg
04/30/25 06:05
04/30/25 06:05
PT 19.6 Sec (11.4-14.6) H 04/24/25 05:43
INR 1.60 04/24/25 05:43
APTT 131.8 Sec (23.4-35.0) H 04/29/25 23:12
Magnesium 1.7 mg/dl (1.6-2.3) 04/24/25 05:43
Free T4 0.60 ng/dl (0.78-2.19) L 04/21/25 13:38
Physical Exam
Constitutional: No acute distress and Other (Nonresponsive to the verbal stimuli)
EENT: Anicteric
Cardiovascular: Rhythm & rate is regular
Respiratory: Wheeze Absent, Rhonchi Absent and Other (Decreased at bases likely consistent with effort)
GI: Soft and Other (Dobbhoff tube in)
Data Reviewed
-
Date of Service: April 30, 2025
Medical Decision Making: Reviewed Test Results
X-Ray/CT/US/MRI/NUC/PET: Report Reviewed by me
Medical Tests (PFT, Pathology etc): Report Reviewed by me
Labs: Labs Reviewed by me
--- NOTE | 2025-04-30 13:16 | W.PN.UPDATE ---
Update Note
Progress Note Update
ALENA performed in OR with anesthesia prior to patient having debridement by Dr. Alexander. Mitral valve with mitral annular calcification. There was a small mobile echodensity on the atrial side of the mitral valve in the region of the mitral annulus.
Cannot exclude vegetation. Also possible density could just be related to the mitral annular calcification. Based on the above finding I would recommend treatment with antibiotics for a duration that would cover endocarditis. Full report to
follow
--- NOTE | 2025-04-30 13:37 | W.IMMPOSTOP ---
Addendum entered and electronically signed by Leonard Alexander MD 04/30/25 15:58:
OK to restart hep gtt after 48 hrs with no bolus (05/02)
Addendum entered and electronically signed by Leonard Alexander MD 04/30/25 13:51:
Daughter talha updated by phone
Original Note:
Surgical Immed Post Op Note
-
Primary Surgeon: Catherine
Pre-op Diagnosis: Sacral pressure wound
Post-op Diagnosis: Stage IV sacral pressure wound
Procedure Performed: Debridement and irrigation of sacral pressure wound
Anesthesia Type: MAC
Specimen / Cultures: Culture sacral wound
Estimated Blood Loss: 35cc
Complications: None immediate
Operative Findings: Necrotic skin, subcutaneous tissue, muscle and fascia sharply debrided with cut cautery and #10 blade back to healthy bleeding tissue. Tunnel to left ischial space 6cm with turner malodorous pus. Exposed sacral bone intact. wound
dimensions 8cm x 4cm x 3cm with undermining circumferentially for 2cm
--- NOTE | 2025-04-30 13:41 | OR.RPT ---
Operative Report
Operative Report
Primary Surgeon: Catherine
Pre-op Diagnosis: Sacral pressure wound
Post-op Diagnosis: Stage IV sacral pressure wound
Procedure Performed: Debridement and irrigation of sacral pressure wound
Anesthesia Type: MAC
Specimen / Cultures: Culture sacral wound
Estimated Blood Loss: 35cc
Complications: None immediate
Operative Findings: Necrotic skin, subcutaneous tissue, muscle and fascia sharply debrided with cut cautery and #10 blade back to healthy bleeding tissue. Tunnel to left ischial space 6cm with turner malodorous pus. Exposed sacral bone intact. wound
dimensions 8cm x 4cm x 3cm with undermining circumferentially for 2cm
Date of Surgery: 04/30/25
Indications: This 59M developed a sacral pressure wound and debridement and irrigation was planned.
PROCEDURE: After informed consent was obtained, the patient was brought to the operative suite and placed right lateral on the operating table. The patient was sedated, prepped and draped in the usual sterile manner.
The wound was exposed and cut cautery was used to excise necrotic skin, subcutaneous fat, muscle and fascia. Exposed sacral bone was firm and intact. A tunnel was identified tracking into the left ischial space. Purulence was released from the
tunnel with digital probing. cultures were obtained.
The wound was then irrigated with copious sterile saline, and hemostasis was obtained using Bovie electrocautery. The wound was packed with saline moist kerlix and covered with 2 abd pads, secured with medipore tape.
The patient tolerated the procedure well and was taken to the PACU in stable condition.
[2025-04-30 14:21] LABS: Glucose - Point of Care 108 mg/dl (70-99)
[2025-04-30] MEDS: DILAUDID 0.5 MG IV (14:22)
--- NOTE | 2025-04-30 16:40 | CM ---
OR today, Stage IV sacral pressure wound, debridement and irrigation. Ethics meeting tomorrow to discuss GOC.
[2025-04-30] MEDS: LEVOTHROID 75 MCG IV (17:17)
[2025-04-30] MEDS: CRESTOR 10 MG TUBE (17:18)
[2025-04-30 17:37] LABS: Glucose - Point of Care 148 mg/dl (70-99)
[2025-04-30] MEDS: LOPRESSOR 50 MG TUBE (21:39)
--- NOTE | 2025-04-30 23:09 | PTCARENOTE ---
Assumed care of pt from caty RN. Pt nonverbal. NSR on monitor. SpO2 99% on 2L NC. VS and and assessment as documented. Nepro with carb steady TF infusing at 50 mL/hr through pt's L nare Dobbhoff. Pt resting in bed with b/t wrist restraints in
place and bed alarm on.
[2025-04-30] MEDS: NOVOLOG FLEXPEN-MODERATE RESISTANCE 3 UNITS SC (23:25)
[2025-04-30 23:35] LABS: Glucose - Point of Care 212 mg/dl (70-99)
[2025-05-01] VITALS (12 sets, daily range): BP systolic 100–160; BP diastolic 54–77; BMI 19.6
[2025-05-01 04:04] LABS: ALT (SGPT) 13 U/L (0-50); AST (SGOT) 15 U/L (17-59); Albumin 2.1 g/dl (3.5-5.0); Alkaline Phosphatase 267 U/L (38-126); Blood Urea Nitrogen 47 mg/dl (9-20); Calcium 9.7 mg/dl (8.4-10.2); Carbon Dioxide 28 mmol/L (22-30); Chloride 99 mmol/L (98-107); Estimated Creatinine Clearance 38 ml/min; Glucose 148 mg/dl (70-99); Potassium 3.2 mmol/L (3.5-5.1); Sodium 133 mmol/L (135-145); Total Protein 4.8 g/dl (6.3-8.2); eGFR 37.97
--- NOTE | 2025-05-01 05:13 | PTCARENOTE ---
K this am 3.2 and TANVIR Panchal made aware. IV KCl ordered (see MAR).
[2025-05-01] MEDS: ZOSYN 50 IV ×3 (05:23→21:41)
[2025-05-01] MEDS: KCL 270 MEQ IV (05:23)
[2025-05-01] MEDS: NOVOLOG FLEXPEN 4 UNITS SC ×3 (05:28→18:24)
[2025-05-01] MEDS: NOVOLOG FLEXPEN-MODERATE RESISTANCE SC (05:28)
[2025-05-01 05:38] LABS: Glucose - Point of Care 148 mg/dl (70-99)
[2025-05-01 06:28] LABS: Glucose - Point of Care 170 mg/dl (70-99)
--- NOTE | 2025-05-01 07:19 | W.PN.UPDATE ---
Update Note
Progress Note Update
AM labs: Potassium 3.2, ordered K+ rider 40 meq IV x 1.
--- NOTE | 2025-05-01 07:44 | W.PN.HOSP.TC ---
Addendum entered and electronically signed by Pedro Contreras MD 05/01/25 10:43:
59 y/o patient had a prolonged hospitalization at [facility] January 11, 2025 to March 17, 2025 for intractable back pain, catheter associated infection, Klebsiella bacteremia. On long-term IV antibiotics cefepime and daptomycin with HD here
for acute change in mental status. Patient was obtunded on arrival and hypotensive. Baseline intermittently confused and bedbound since November 2024 per POA. Able to talk to sister on the phone at baseline.
Currently not verbal.
Cardiovascular system S1-S2 appreciated
Chest clear to auscultation
Abdomen soft and nontender
Dobbhoff tube
Unstageable sacral decubitus
Patient wakes up with painful stimulus but does not communicate
04/23/25 18:00 Sacral Wound Culture - Preliminary
04/23/25 18:00 Sacral Gram Stain - Preliminary
CT Head: No acute intracranial abnormality noted.There are mild/moderate periventricular and subcortical white matter hypodensities which are nonspecific, however likely sequelae of chronic small vessel ischemic disease.
EEG 04/11/2025: Diffuse cortical dysfunction without focal abnormality. No seizures activity.
Echo 04/11/2025: TDS. EF 60-65%, no RWMA.
MRI brain 04/13/25: There are small foci of restricted diffusion involving the bilateral frontoparietal white matter, the left frontal white matter more anteriorly in the right basal ganglia consistent with acute/subacute infarctions. These may be
embolic in nature given the multivessel territory. Mild atrophy with sequelae of moderate chronic small vessel ischemic disease. Prominent blooming artifact along the left paramedian parietal lobe which is likely sequelae of prior
hemorrhage/hematoma.
CT A/P w/IV contrast 04/15/25: Limited exam, anasarca, splenomegaly, atrophic bilateral kidneys, proctitis indeterminate etiology, diffuse wall thickening of the urinary bladder outlet obstruction without source neurogenic bladder. Small focus of
gas in the bladder. Recent fracture of greater trochanter of right femur. Osseous destructive process of the T8-T9. Abnormal lucent and sclerotic appearance of the bones likely renal osteodystrophy
R Hip x-ray 04/17/25: Findings suggesting subacute fracture of the right greater trochanter.
CXR 04/23: Mild pulmonary vascular congestion. Mild hazy opacity in the right lung base, which could represent atelectasis or pneumonia.
#Acute/subacute CVAs :
-MRI brain above, likely embolic in nature
-Was on heparin drip
#Acute metabolic encephalopathy
-Multifactorial due to hypotension, polypharmacy, hypovolemia, (possibly) acute/subacute CVAs, and likely vascular dementia
-started on IV Synthroid, endocrine saw in c/s
-neuro saw in consult and states that currently the pt's diagnosis is
-EEG without seizure activity
-Cont to hold gabapentin/Haldol
-Dobhoff placed on 04/18/25 for feeds, replaced again due to blockage
-As pt's sister and daughter wants to continue with PEG, GI consulted for PEG placement-timing to be determined by GI
#H/O VRE and Klebsiella bacteremia prior to admission
-admitted on daptomycin/cefepime and transitioned to IV Zosyn per ID. Then was discontinued prior as per ID as d/c records indicate completion of antibiotics at [place] and unclear as to why they were started at [facility].
-Klebsiella and Proteus vulgaris bacteremia noted on blood culture 04/26/2025. Repeat cultures from 04/28/2025 with Klebsiella-on Zosyn. Likely source is sacral decubitus ulcer-debrided
-ALENA from April 30, 2025-mitral valve-small mobile density cannot exclude vegetation
-Will need to be treated as endocarditis
-Infectious disease following
#Pancytopenia:
-anemia likely secondary to chronic kidney disease
-BMBx and MM work up was done at [place] revealing no BM or genetic mutations
-Heme/onc appreciated for possible eval for TTP, no TTP as no schistocytes and normal LDH, antibody panels for other causes of hypercoagulable states pending
-Status post 2 units of PRBCs this admission
Thrombocytopenia and leukopenia resolved
#Lupus anticoagulant positive likely contributing to hypercoagulable state. Heparin bridge started. Bridged to warfarin once PEG tube is placed
#Hypothyroidism-started on Synthroid. Repeat thyroid function tests are better
#Elevated troponin, nonischemic myocardial injury and due to underlying ESRD
#Chronic HFpEF: cont BB
#ESRD: cont HD M/W/F, renal following
#PAF: Cont BB/heparin drip to be resumed when okay with surgeon
#Anxiety/depression: cont Lexapro. Psychiatric valuation appreciated. BuSpar discontinued
#? Metastatic disease: Hospital records from [place] revealed concerns for metastatic disease after MRI of spine done. Some proctocolitis of bowels noted on imaging as well. CT A/P revealed no obvious metastatic disease
#Diarrhea: C diff NEG
#R greater trochanteric femur fracture: No surgical intervention required per ortho.
#Essential HTN: BB with holding parameters
#HLD: Cont statin
#Hypokalemia, replete prn
#Hypophosphatemia, replete
#Bedbound since November 2024 with intermittent confusion at baseline
#DM2: SSI/accuchecks
#Concern for vascular dementia
#Amputation of the left toes 1-3
#Osseous destruction of T8-T9
#Splenomegaly
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
#Wounds:
-Stage IV sacral pressure injury, wound debridement done by surgeon on April 30, 2025-necrotic skin subcutaneous tissue muscle and fascia debrided there was also 6 cm space in the ischial area with malodorous pus. Exposed sacral bone intact
-stage I B/L heel pressure injury
-wound care
-Tylenol 1,000mg TID for pain
-Oxycodone 2.5 mg every 6 hours-Sister does not think he has a true allergy. Discussed with her and she is okay with starting.
# DVT prophylaxis-heparin on hold 48 hours post procedure per surgery. Continue SCDs
# DNR Status now
Prognosis poor given multiple medical conditions and mental status. This was discussed with the patient's daughters yesterday. Multiple discussions the patient's sister also regarding this
Both parties want to proceed with PEG tube and give him some more time even though they are aware that this may not improve his prognosis
Original Note:
Today's Communication/Plan
-
Valve vegetation noted -ID appreciated for antibiotic coverage
Hold heparin until 9/12 PM (48 hours after operation)
Wound care
Recheck TSH and free T4 and let endocrinology know
Assessment / Plan
Assessment / Plan
59 y/o patient had a prolonged hospitalization at [facility] January 11, 2025 to March 17, 2025 for intractable back pain, catheter associated infection, Klebsiella bacteremia. On long-term IV antibiotics cefepime and daptomycin with HD here
for acute change in mental status. Patient was obtunded on arrival and hypotensive. Baseline intermittently confused and bedbound since November 2024 per POA. Able to talk to sister on the phone at baseline.
CT Head: No acute intracranial abnormality noted.There are mild/moderate periventricular and subcortical white matter hypodensities which are nonspecific, however likely sequelae of chronic small vessel ischemic disease.
EEG 04/11/2025: Diffuse cortical dysfunction without focal abnormality. No seizures activity.
Echo 04/11/2025: TDS. EF 60-65%, no RWMA.
MRI brain 04/13/25: There are small foci of restricted diffusion involving the bilateral frontoparietal white matter, the left frontal white matter more anteriorly in the right basal ganglia consistent with acute/subacute infarctions. These may be
embolic in nature given the multivessel territory. Mild atrophy with sequelae of moderate chronic small vessel ischemic disease. Prominent blooming artifact along the left paramedian parietal lobe which is likely sequelae of prior
hemorrhage/hematoma.
CT A/P w/IV contrast 04/15/25: Limited exam, anasarca, splenomegaly, atrophic bilateral kidneys, proctitis indeterminate etiology, diffuse wall thickening of the urinary bladder outlet obstruction without source neurogenic bladder. Small focus of
gas in the bladder. Recent fracture of greater trochanter of right femur. Osseous destructive process of the T8-T9. Abnormal lucent and sclerotic appearance of the bones likely renal osteodystrophy
R Hip x-ray 04/17/25: Findings suggesting subacute fracture of the right greater trochanter.
CXR 04/23: Mild pulmonary vascular congestion. Mild hazy opacity in the right lung base, which could represent atelectasis or pneumonia.
#Acute/subacute CVAs :
-MRI brain above, likely embolic in nature
-should continued aggressive care be desired, work up for other causes of hypercoagulable state per heme/onc
-as per cards, no ALENA at this time as too high risk for aspiration with nearly obtunded state - ALENA 04/30 with wound debridement in OR - revealed likely vegetation
# Mitral valve vegetation
-Noted on ALENA on 04/30
-ID appreciated for antibiotic coverage
-Could be source of embolic stroke
# Unstageable necrotic sacral wound -debridement on 04/30
-Post op day 1 sacral debridement - hold heparin until 9/12 pm (48 hrs after surgery per surgery)
- Wound care
- Preliminary wound culture from debridement reveals gram-negative rods and moderate gram-positive rods
#Acute metabolic encephalopathy
-Multifactorial due to hypotension, polypharmacy, hypovolemia, (possibly) acute/subacute CVAs, and likely vascular dementia
-started on IV Synthroid, endocrine saw in c/s
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
-EEG without seizure activity
-Cont to hold gabapentin/Haldol
-Dobhoff placed on 04/18/25 for feeds - replaced 04/28/25 because it got clogged
-As pt's sister wants to continue aggressive care, GI consulted for PEG placement-timing to be determined by GI
#Febrile
#H/O VRE and Klebsiella bacteremia:
-admitted on daptomycin/cefepime and transitioned to IV Zosyn per ID. Now off abx as per ID as d/c records indicate completion of antibiotics at [place] and unclear as to why they were started at [facility]. Cultures were negative and pt was
afebrile.
-04/23/25AM temp 101.2 F. Septic w/u with BCxs (which are NGTD) and CXR (as above). Surgery following, likely sacral ulcer debridement 04/28. Abx ordered but stopped by ID.
-Zosyn started 04/26/2025 to cover for positive blood cultures with klebsiella, possible source infected sacral decubitus ulcer as would cultures also revealed klebsiella (also VRE)
-Infectious disease following
#Pancytopenia:
-anemia likely secondary to chronic kidney disease
-BMBx and MM work up was done at [place] revealing no BM or genetic mutations
-Heme/onc appreciated for possible eval for TTP, no TTP as no schistocytes and normal LDH, antibody panels for other causes of hypercoagulable states pending
-Status post 2 units of PRBCs this admission
Thrombocytopenia and leukopenia resolved
#Anxiety/depression
-Psychiatric valuation appreciated. BuSpar discontinued.
-Taper off lexapro per psych. 10mg daily for 7 days then discontinue on 05/07.
#Lupus anticoagulant positive likely contributing to hypercoagulable state. Heparin bridge started. Bridged to warfarin once PEG tube is placed - heparin on hold until 05/02 afternoon (48 hrs after surgery done at 1pm on 04/30)
#Hypothyroidism-started on Synthroid - Endocrine recommends increase from 50 to 75 levothyroxine IV as he remains obtunded to see if it helps - TSH and free T4 pending
#Elevated troponin, nonischemic myocardial injury and due to underlying ESRD
#Chronic HFpEF: cont BB
#ESRD: cont HD M/W/F, renal following
#PAF: Cont BB/heparin drip
#? Metastatic disease: Hospital records from [place] revealed concerns for metastatic disease after MRI of spine done. Some proctocolitis of bowels noted on imaging as well. CT A/P revealed no obvious metastatic disease
#Diarrhea: C diff NEG 04/13, c.diff (-) 04/29
#R greater trochanteric femur fracture: No surgical intervention required per ortho.
#Essential HTN: BB with holding parameters
#HLD: Cont statin
#Hypokalemia, replete prn
#Hypophosphatemia, replete
#Bedbound since November 2024 with intermittent confusion at baseline
#DM2: SSI/accuchecks
#Concern for vascular dementia
#Amputation of the left toes 1-3
#Osseous destruction of T8-T9
#Splenomegaly
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
#Wounds unstageable
-Unstageable sacral pressure injury
-stage I B/L heel pressure injury
-wound care
-Tylenol 1,000mg TID for pain
- Will also start oxycodone 2.5 mg every 6 hours-Sister does not think he has a true allergy
# DVT prophylaxis-heparin
# DNR Status now
Therapy becoming medically futile. He appears hospice appropriate. He has no likelihood of healing after debridement and will likely have a chronic wound especially considering his low protein stores. Spoke to daughter yesterday and they are trying
to arrange a ride with their aunt to come visit as their car is not safe to drive long distances (they live 4 hours away).
Anticipated Discharge: > 48 hours
Subjective/Interval History
-
Date of Service: May 01, 2025
Remains obtunded. Grimacing in pain. Spoke to his daughter Kamryn yesterday and she is trying to coordinate ride up to visit her dad with her aunt. She was 4 hours away and does not have a reliable car. She stated that based on what her aunts
relayed to her, she would like to continue all medical management and see how he does.
Objective Data
-
Labs:
Laboratory Results
05/01/25 05/01/25
03:31 07:11
WBC Pending
Hgb Pending
Hct Pending
Plt Count Pending
Sodium 133 L
Potassium 3.2 L
Chloride 99
Carbon Dioxide 28
BUN 47 H
Creatinine 2.0 H
Glucose 148 H
Calcium 9.7
Total Bilirubin 0.8
AST 15 L
ALT 13
Alkaline Phosphatase 267 H
Vital Signs:
Vital Signs
Temp Pulse Resp BP Pulse Ox
98.9 F 77 28 118/65 98
05/01/25 07:37 05/01/25 06:00 05/01/25 06:00 05/01/25 06:00 05/01/25 06:00
I&O
04/30/25 05/01/25 05/02/25
06:59 06:59 06:59
Intake Total 650 / 650 1310 / 1310
Output Total 0 / 0
Balance 650 / 650 1310 / 1310
Review of Systems
-
Unable to obtain full review of systems at this time due to: Dementia and Acuity
Physical Exam
-
General: Appears Chronically Ill
Respiratory: Clear to Auscultation
Cardiac: Regular Rhythm, S1/S2 and Murmur
GI: Soft, Nondistended and Normal Bowel Sounds
Musculoskeletal: No Cyanosis and No Edema
[2025-05-01] MEDS: DAILY VITAMIN/CENTRUM 15 ML TUBE (09:30)
[2025-05-01] MEDS: DAKIN'S SOLUTION 0.125% 1/4 STRENGTH 473 ML TOPICAL (09:31)
[2025-05-01] MEDS: DESENEX/MITRAZOL/ZEASORB 1 APPLIC TOPICAL ×2 (09:32→21:45)
[2025-05-01] MEDS: LEXAPRO 10 MG TUBE (09:34)
[2025-05-01] MEDS: LOPRESSOR 50 MG TUBE (09:34)
[2025-05-01] MEDS: NSS (PRESERVATIVE FREE) 10 ML IV (09:36)
[2025-05-01] MEDS: SANTYL OINTMENT 1 APPLIC TOPICAL (09:38)
[2025-05-01] MEDS: PROTONIX IV 40 MG IV (09:38)
[2025-05-01] MEDS: TYLENOL 1000 MG TUBE ×2 (09:43→18:20)
[2025-05-01] MEDS: ZINC 50 MG TUBE (09:44)
[2025-05-01] MEDS: VITAMIN B1 100 MG TUBE (09:44)
--- NOTE | 2025-05-01 09:52 | W.PN.CD ---
Today's Communication / Plan
-
- ALENA. More challenging assessment of valves due to mitral annular calcification and thickening of mitral and aortic valves. Cannot exclude vegetation associated with mitral valve small mobile echodensity on the atrial side of the valve along the
mitral annulus. Favor antibiotic duration to cover endocarditis. Follow-up transthoracic echo after antibiotics are completed. Otherwise follow clinically. Due to increased risk of anesthesia with this patient would not schedule a routine
follow-up ALENA.
- Antibiotics as directed by ID.
Impression / Plan
-
I/P: 59M with paroxysmal atrial fibrillation on Eliquis, HTN, HLD, ESRD on HD, PAD (toe amputation), anxiety/depression, anemia, suspected vascular dementia, and DM who presented from facility with change in mental status with somnolence and not
responding to commands.
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 Burt if he continues to follow here
Bacteremia
- Afebrile this morning
-Infectious disease following
-Blood culture 04/26/2025: Positive for Klebsiella aerogenes in both bottles
-TTE: TDS, no endocarditis seen
- ALENA. More challenging assessment of valves due to mitral annular calcification and thickening of mitral and aortic valves. Cannot exclude vegetation associated with mitral valve small mobile echodensity on the atrial side of the valve along the
mitral annulus. Favor antibiotic duration to cover endocarditis. Follow-up transthoracic echo after antibiotics are completed. Otherwise follow clinically. Due to increased risk of anesthesia with this patient would not schedule a routine
follow-up ALENA.
.
Sacral wound - debridement performed by Dr. Alexander tomorrow 04/30/2025
Acute/subacute CVAs
-MRI revealed small foci of restricted diffusion involving the bilateral frontoparietal white matter, the left frontal white matter more anteriorly in the right basal ganglia consistent with acute/subacute infarctions
-Likely embolic
Paroxysmal atrial fibrillation
- In sinus
- Oral Anticoagulation: Eliquis on hold. Patient been on heparin which also is on hold due to procedures.
- [id number]: score at least 3 (Diabetes Mellitus, prior Stroke/TIA)
Change in mental status
-Treatment directed by primary team
-Ongoing, non responsive to verbal stimuli
-PEG tube timing TBD per primary and GS
Abnormal troponin, peak 0.056, non-ischemic myocardial injury in setting of renal disease and hypotension, acute illness
ESRD, on HD, per Nephrology
Bedbound, chronic, since 11/2024
SUBJECTIVE:
Patient unable to provide history
Physical Exam
Vital Signs/Labs
Vital Signs
Temp Pulse Resp BP Pulse Ox
98.9 F 77 28 118/65 99
05/01/25 07:37 05/01/25 06:00 05/01/25 06:00 05/01/25 06:00 05/01/25 08:16
04/30/25 05/01/25 05/02/25
06:59 06:59 06:59
Actual Weight 65.9 kg 66.5 kg
05/01/25 03:31
PT 19.6 Sec (11.4-14.6) H 04/24/25 05:43
INR 1.60 04/24/25 05:43
APTT Cancelled 04/30/25 21:15
Magnesium 1.7 mg/dl (1.6-2.3) 04/24/25 05:43
Free T4 0.60 ng/dl (0.78-2.19) L 04/21/25 13:38
Physical Exam
Constitutional: Other (Not responsive to verbal. Mental status unchanged from yesterday)
Cardiovascular: Rhythm & rate is regular
Respiratory: Wheeze Absent and Rhonchi Absent
GI: Soft
Data Reviewed
-
Date of Service: May 01, 2025
Medical Decision Making: Reviewed Test Results
Echo: Report Reviewed by me
X-Ray/CT/US/MRI/NUC/PET: Report Reviewed by me
Medical Tests (PFT, Pathology etc): Report Reviewed by me
Labs: Labs Reviewed by me
[2025-05-01 10:08] LABS: TSH 14.40 uIU/ml (0.47-4.68)
--- NOTE | 2025-05-01 10:40 | PTOTSP ---
Speech Language Pathology
Pt seen for cognitive-linguistic tx. Eyes intermittently open with no fixation or tracking. Not blinking to threat in either eye. No response to auditory startle. Only withdrew to noxious stimulation in LLE nailbeds with no response in other
extremities. Did not attempt to verbalize, follow commands, or answer any yes/no questions with max cueing.
Pt also seen for dysphagia tx. Frequent random lingual movements noted at rest. Provided ice to lips with similar lingual response. Consistently responded to ice to lips. Appeared to be apraxic in nature with lingual tip onto roof of mouth and
forceful lingual movement L and R. Provided drops of thin water under tongue when in elevated position with no response whatsoever. Suctioned from oral cavity. Further P.O. trials deferred. Prognosis for short-term and long-term improvement in
swallow function is poor.
Recommend:
(1) Strict NPO
(2) Oral care 4x/day with suctioning as needed
(3) Not appropriate for Aspiration Risk Hydration Protocol (ARHP) at this time given cognitive status
(4) Non-oral meds
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 Given lack of improvement since admission and inability to actively participate in therapy, will only see periodically (approximately 1x/week) to assess progress
[2025-05-01] MEDS: DILAUDID 0.5 MG IV (11:53)
[2025-05-01] MEDS: NOVOLOG FLEXPEN-MODERATE RESISTANCE 5 UNITS SC (11:56)
[2025-05-01 12:17] LABS: Glucose - Point of Care 239 mg/dl (70-99)
--- NOTE | 2025-05-01 12:25 | W.PN.ID1 ---
Date of Service
Date of Service: May 01, 2025
Today's Communication
Continue antibiotics.
Assessment / Plan
Bacteremia
Fever - intermittent
Leukocytosis
Encephalopathy; ongoing
- ?TME ?CVA
Hx VRE / Klebsiella infection 2* HD cath CLABSI (at OSH)
- Previously on dapto / cefepime when arrived from nursing facility.
- Completed course of therapy
Unstageable sacral wound
Penile dermal necrosis
Vascular dementia
P A-fib (on Eliquis)
ESRD�HD (MWF)
DM
PAD
CHF
Anxiety/depression
Recommendations:
Fevers, leukocytosis
- 04/23 blood cx's blood culture with gram-negative rods, but could not speciate.
- 04/23 CXR: mild opacity RLL atelectasis vs PNA
- 04/26/25 blood cx's with Klebsiella aerogenes and Proteus vulgaris. These organisms were also recovered from the unstageable sacral decubiti.
-04/23 Sacral wound polymicrobial growth, including Proteus, Klebsiella, VRE (amp sensitive) and an additional strep species
- Potential sources of bacteremia include sacral wound, HD line.
-Continue Zosyn (d#6)
-Continue local care to sacral wound.
Suspected mitral valve vegetation. Given recent bacteremia, there is high probability that if truly a vegetation it is infected. Will therefore require prolonged course of antibiotics.
Overall prognosis at this point appears exceedingly poor to nonexistent.
Patient with poor-to-no wound healing capacity given underlying cachexia, low albumin and protein stores.
Patient is hospice appropriate.
����������������������������������������������������������
Chief Complaint
-: Fever, Bacteremia and Other (Change in mental status, failure to thrive)
Subjective / Review of Systems
Patient seen and examined. No significant clinical change from yesterday. Remains nonverbal. Underwent sacral debridement yesterday.
Review of Systems: No Fever
Vital Signs / Physical Exam
Vital Signs
Vital Signs
Temp Pulse Resp BP Pulse Ox
97.8 F 76 28 124/55 99
05/01/25 10:55 05/01/25 09:34 05/01/25 06:00 05/01/25 09:34 05/01/25 08:16
Physical Exam
Constitutional: Acutely Ill, Chronically Ill and Cachetic
Head: Other (Temporal wasting. Nasal Dobbhoff in place.)
Eyes: Sclera Anicteric
Cardiovascular: S1/S2; Negative S3/S4
Pulmonary: Non Labored; Negative Wheezes
Gastrointestinal: Soft and Non Distended
Extremities: Negative Edema, Cyanosis or Erythema
Wound: Other (Sacral wound dressed.)
Lines: CVP (Left IJ) and HD Cath (Left ACW)
Objective Data
Lab Data
Lab Results
05/01/25 03:31
PT 19.6 Sec (11.4-14.6) H 04/24/25 05:43
INR 1.60 04/24/25 05:43
APTT Cancelled 04/30/25 21:15
Estimated Creat Clear 38 ml/min 05/01/25 03:31
Lactic Acid Cancelled 04/10/25 14:15
Total Bilirubin 0.8 mg/dl (0.2-1.3) 05/01/25 03:31
AST 15 U/L (17-59) L 05/01/25 03:31
ALT 13 U/L (0-50) 05/01/25 03:31
Alkaline Phosphatase 267 U/L (38-126) H 05/01/25 03:31
Most recent labs reviewed.
Micro Results:
04/30/25 13:16 Wound Culture - Preliminary
Sacral Klebsiella aerogenes
Proteus vulgaris
Gram Stain - Preliminary
04/28/25 03:23 Blood Culture - Preliminary
Blood/Venous No Growth in 72 hours- Final report to follow
04/29/25 16:56 Blood Culture - Preliminary
Blood/Venous No Growth in 24 hours- Final report to follow
04/29/25 15:06 Blood Culture - Preliminary
Blood/Venous No Growth in 24 hours- Final report to follow
04/30/25 13:16 Anaerobic Culture - Pending
Sacral
04/28/25 03:18 Blood Culture - Preliminary
Blood/Venous Klebsiella aerogenes
Gram Stain - Preliminary
04/23/25 14:38 Blood Culture - Final
Blood/Venous Gram negative bacilli
Gram Stain - Final
04/23/25 18:00 Wound Culture - Final
Sacral Proteus vulgaris
Klebsiella aerogenes
Enterococcus faecalis - VRE
Streptococcus species
Gram Stain - Final
04/26/25 11:09 Blood Culture - Preliminary
Blood/Venous Klebsiella aerogenes
Gram Stain - Preliminary
04/26/25 10:15 Blood Culture - Preliminary
Blood/Venous Proteus vulgaris
Klebsiella aerogenes
Gram Stain - Preliminary
04/29/25 04:10 C. difficile GDH Antigen & Toxins - Final
Feces/Stool Negative for toxigenic C.difficile
04/23/25 18:00 Blood Culture - Final
Blood/Venous No Growth - Final Report
04/10/25 12:30 Blood Culture - Final
Blood/Venous No Growth - Final Report
04/10/25 10:12 Blood Culture - Final
Blood/Venous No Growth - Final Report
04/13/25 14:55 C. difficile GDH Antigen & Toxins - Final
Feces/Stool Negative for toxigenic C.difficile
04/11/25 04:12 MRSA Screen - Final
Nose Staph aureus MRSA
Imaging:
04/30/2025 ECHO (ALENA): EF approximately 60%. Mitral valve with a small mobile echodensity on the atrial side of the mitral annulus. Echodensity is bright and mobile and may be part of the mitral annular calcification, but cannot exclude vegetation.
Please see full dictation for additional detail.
04/11/2025 ECHO (TTE): technically difficult study. EF approximate 60%. Aortic sclerosis noted. Mitral valve is thickened with dense mitral annular calcification. Adequate mitral valve leaflet excursion noted. Please see full dictation for
additional detail.
04/15/2025 CT abdomen/pelvis with contrast: rectum shows concentric wall thickening compatible with some form of proctitis. Perirectal inflammatory stranding is noted, but no signs of free fluid or drainable collection. Bones are diffusely
demineralized. Osseous destructive process at T8-T9. Recent fracture of the greater trochanter of the right femur is noted. Please see full dictation for additional detail.
04/09/2025 MRI brain without contrast: There are small foci of restricted diffusion involving the bilateral frontoparietal white matter, the left frontal white matter more anteriorly in the right basal ganglia consistent with acute/subacute
infarctions. These may be embolic in nature given the multivessel territory. Mild atrophy with sequelae of moderate chronic small vessel ischemic disease.
Prominent blooming artifact along the left paramedian parietal lobe which is likely sequelae of prior hemorrhage/hematoma.
--- NOTE | 2025-05-01 12:55 | CHAP ---
Addendum entered by Shaunna Lemon 05/01/25 16:59:
Alma Rosa Mercado from [facility] pet adoption counselor advised that a video family meeting is permissible and should be set up as soon as can be arranged with family.
Original Note:
Ethics panel met. Will reach out to Alma Rosa Mercado from [facility] [employer]'s office to discuss protocol for setting up video conference call with daughters and sister so they can see the patient's current situation. Medical team will also
reach out to palliative care to utilize their help in working with patient and family. Awaiting GI decision/advice regarding PEG tube possibility.
--- NOTE | 2025-05-01 13:24 | W.PN.UPDATE ---
Update Note
Progress Note Update
Pt seen and evaluated at bedside, Nonverbal. Winces in pain with logroll. Wound is hemostatic. Malodorous. No purulence. No further necrosis. Dakins wet to dry dressing applied. Wound care orders placed. OK to restart hep gtt tomorrow with no bolus.
GS will s/o pls call with ?s
--- NOTE | 2025-05-01 13:55 | W.PN.NEPH.PH ---
Today's Communication / Plan
-
HD tomorrow
Assessment/Plan
-
59M [facility] resident ESRD MWF roxanne Eliquis HTN HLD DM PAD toe amputations CHF Anxiety Depression suspected underlying vascular dementia recent prolonged hospitalization [facility] January 11 to March 17 for intractable back pain catheter
associated infection VR and Klebsiella bacteremia (following which he was discharged to [facility] with skilled nursing IV abx Cefipime and Daptomycin to be given with HD- sent by SNF for evaluation AMS, normally AOx3 at baseline, essentially obtunded on
arrival with associate severe hypotension systolic 70s. Improved with IVF bolus,
Impression
ESRD MWF [facility]
Sepsis
A-fib
Dementia/AMS
CVA
History of Klebsiella pneumonia due to catheter in December 2024 at [facility]
Plan:
HD tomorrow via [facility]
possible PEG (Requested by family)
s/p decub wound debridement on 04/30
ALENA concern of vegetation mitral valve
abx per ID
overall prognosis is poor, he will be unlikely to ever leave [place]
-
-
Date of Service: May 01, 2025
CC / HPI / ROS
-
Chief Complaint:
AMS, ESRD
History of Present Illness:
Anemia stable at 8.8 , WBC up at 19.7-await cbc today
BP stable
sodium at 133, k low 3.2
End-stage renal disease on Monday dialysis cath
tolerated HD yesterday
Review of Systems:
no fever
noncommunicative
Labs
-
Labs:
Sodium 133 mmol/L (135-145) L 05/01/25 03:31
Potassium 3.2 mmol/L (3.5-5.1) L 05/01/25 03:31
Chloride 99 mmol/L (98-107) 05/01/25 03:31
Carbon Dioxide 28 mmol/L (22-30) 05/01/25 03:31
BUN 47 mg/dl (9-20) H 05/01/25 03:31
Creatinine 2.0 mg/dL (0.7-1.3) H 05/01/25 03:31
eGFR 37.97 05/01/25 03:31
Glucose 148 mg/dl (70-99) H 05/01/25 03:31
Calcium 9.7 mg/dl (8.4-10.2) 05/01/25 03:31
Phosphorus 1.5 mg/dl (2.5-4.5) L 04/20/25 04:29
Albumin 2.1 g/dl (3.5-5.0) L 05/01/25 03:31
Physical Exam
-
Vital Signs:
Vital Signs
Temp Pulse Resp BP Pulse Ox
97.8 F 76 28 124/55 99
05/01/25 10:55 05/01/25 09:34 05/01/25 06:00 05/01/25 09:34 05/01/25 08:16
Cardiovascular:: Regular rate and rhythm
Respiratory:: Bilateral: Coarse
Lung Excursion:: Normal
Abdomen:: Nontender and Soft
Bowel Sounds:: Normal
Extremity Edema:: None: Bilateral:
Plasencia Catheter: No
--- NOTE | 2025-05-01 15:33 | CM ---
Following up on patient. Ethics meeting occurred today. Patient had debridement of his wounds that will never heal according to the Surgeon.
Issues are prognosis with all treatments are poor and sister/ daughters are not ready or willing to make end of life decisions. Now, a peg tube is being considered. Thoughts are to involved Palliative Care again, possible have video conference for
daughters to see their father, and have multiple family meetings via conference with all family & Medical Team.
PLAN: Ultimate plan is to be TBD at this time.
[2025-05-01] MEDS: CRESTOR 10 MG TUBE (18:20)
[2025-05-01] MEDS: NOVOLOG FLEXPEN-MODERATE RESISTANCE 1 UNITS SC (18:23)
[2025-05-01 18:35] LABS: Glucose - Point of Care 193 mg/dl (70-99)
[2025-05-01 22:13] LABS: Hematocrit 26.0 % (39.0-52.0); Hemoglobin 8.4 g/dL (13.0-18.0); Mean Corp Hgb Conc. 32.3 g/dL (33.0-37.0); Mean Corpuscular Volume 91.2 fL (80.0-94.0); Platelet Count 232 10^3/uL (130-400); Red Cell Dist. Width 23.0 % (11.5-14.5)
--- NOTE | 2025-05-01 22:21 | W.PN.UPDATE ---
Update Note
Progress Note Update
Asked to see patient to evaluate Dobbhoff placement. Per RN, previous documentation shows tube placed at 65, tube reading now at 83. Ordered portable abdominal xray to confirm placement. xray confirmed proper placement, length estimated around 80
cm +/- on xray measurement. OK to use.
[2025-05-01 22:29] LABS: Absolute Neutrophils -Man Diff 15.1 10^3/uL (1.4-6.5)
[2025-05-01 22:30] LABS: Normal RBC Morphology No; Platelets Checked Yes
[2025-05-01 22:31] LABS: Anisocytosis 2+; Hypochromasia 1+; Polychromasia 1+; Total Cells Counted 100
--- NOTE | 2025-05-01 22:47 | PTCARENOTE ---
DHT noted to be at 83cm at the left nare. Per report and documentation, DHT is documented at 65cm. TANVIR Panchal made aware, at bedside to assess. TF stopped. Abd XR obtained to confirm placement. Per documentation, last insertion and placement
verification was on 04/28.
Pt lethargic, does not follow commands. Opens eyes occasionally. Incont of BM; Jazmín care & CHG done, linens changed.
[2025-05-01 23:55] LABS: Glucose - Point of Care 153 mg/dl (70-99)
[2025-05-02] VITALS (30 sets, daily range): BP systolic 90–169; BP diastolic 53–109; BMI 19.6
[2025-05-02] MEDS: LOPRESSOR TUBE ×2 (01:06→12:11)
[2025-05-02] MEDS: TYLENOL TUBE ×2 (01:07→11:01)
[2025-05-02] MEDS: NOVOLOG FLEXPEN SC ×3 (01:07→12:10)
[2025-05-02] MEDS: NOVOLOG FLEXPEN-MODERATE RESISTANCE SC ×3 (01:08→12:32)
--- NOTE | 2025-05-02 03:12 | PTCARENOTE ---
Patient has made no attempts at removing tubes/lines. Patient does not make any purposeful movement; restraints removed.
Patient continues to have loose incont BMs that are soiling the sacral dressing and causing severe skin breakdown & bleeding in christiane-anal area. FMS placed, barrier cream applied generously christiane anal area, and patient has been propped on his sides Q2
hours using foam wedge. Heels floated; foams intact. Bilateral elbows stage 1; foam intact. Bed alarm set for safety.
[2025-05-02] MEDS: ZOSYN 50 IV ×3 (05:01→22:12)
[2025-05-02 05:54] LABS: Hematocrit 27.6 % (39.0-52.0); Hemoglobin 9.0 g/dL (13.0-18.0); Mean Corp Hgb Conc. 32.6 g/dL (33.0-37.0); Mean Corpuscular Volume 89.0 fL (80.0-94.0); Nucleated Red Blood Cells % 0 % (-); Platelet Count 242 10^3/uL (130-400); Red Cell Dist. Width 22.6 % (11.5-14.5)
[2025-05-02] MEDS: SYNTHROID 75 MCG TUBE (06:07)
[2025-05-02 06:15] LABS: ALT (SGPT) 14 U/L (0-50); AST (SGOT) 18 U/L (17-59); Albumin 2.3 g/dl (3.5-5.0); Alkaline Phosphatase 360 U/L (38-126); Blood Urea Nitrogen 62 mg/dl (9-20); Calcium 9.8 mg/dl (8.4-10.2); Carbon Dioxide 21 mmol/L (22-30); Chloride 101 mmol/L (98-107); Estimated Creatinine Clearance 30 ml/min; Glucose 115 mg/dl (70-99); Potassium 3.7 mmol/L (3.5-5.1); Sodium 133 mmol/L (135-145); Total Protein 5.1 g/dl (6.3-8.2); eGFR 29.05
[2025-05-02 06:17] LABS: Glucose - Point of Care 115 mg/dl (70-99)
--- NOTE | 2025-05-02 09:02 | W.PN.HOSP.TC ---
Addendum entered and electronically signed by Pedro Contreras MD 05/02/25 13:09:
I saw and evaluated the patient. I reviewed the resident�s note and agree with findings and plan as documented in the resident�s note. See changes in my documentation
Right hand edema
Wound - sacrum- Necrotic , No granulation, Stage 4
Nonverbal. Winces with painful stimuli, Open eyes, no tracking
#Acute/subacute CVAs :
-MRI brain above, likely embolic in nature
-Heparin drip
#Acute metabolic encephalopathy
-Multifactorial due to hypotension, polypharmacy, hypovolemia, (possibly) acute/subacute CVAs, and likely vascular dementia
-started on Synthroid, endocrine saw in c/s
-EEG without seizure activity
-Cont to hold gabapentin/Haldol
-Dobhoff placed on 04/18/25 for feeds, replaced again due to blockage
-As pt's sister and daughter wants to continue with PEG, GI consulted for PEG placement-timing to be determined by GI Probable monday05/05/25
#H/O VRE and Klebsiella bacteremia prior to admission
-admitted on daptomycin/cefepime and transitioned to IV Zosyn per ID. Then was discontinued prior as per ID as d/c records indicate completion of antibiotics at [facility] and unclear as to why they were started at [facility].
-Klebsiella and Proteus vulgaris bacteremia noted on blood culture 04/26/2025. Repeat cultures from 04/28/2025 with Klebsiella-on Zosyn. Likely source is sacral decubitus ulcer-debrided
-ALENA from April 30, 2025-mitral valve-small mobile density cannot exclude vegetation
-Will need to be treated as endocarditis - 6 weeks AB
-Infectious disease following
#Pancytopenia:
-anemia likely secondary to chronic kidney disease
-BMBx and MM work up was done at [facility] revealing no BM or genetic mutations
-Heme/onc appreciated for possible eval for TTP, no TTP as no schistocytes and normal LDH, antibody panels for other causes of hypercoagulable states pending
-Status post 2 units of PRBCs this admission
Thrombocytopenia and leukopenia resolved
#Lupus anticoagulant positive likely contributing to hypercoagulable state. Heparin bridge restarted. Bridged to warfarin once PEG tube is placed
#Hypothyroidism-started on Synthroid. Repeat thyroid function tests are better, switched to PO
#Elevated troponin, nonischemic myocardial injury and due to underlying ESRD
#Chronic HFpEF: cont BB
#ESRD: cont HD M/W/F, renal following
#PAF: Cont BB/heparin drip to be resumed 05/02/25
#Anxiety/depression: cont Lexapro. Psychiatric valuation appreciated. BuSpar discontinued
#? Metastatic disease: Hospital records from [facility] revealed concerns for metastatic disease after MRI of spine done. Some proctocolitis of bowels noted on imaging as well. CT A/P revealed no obvious metastatic disease
#Diarrhea: C diff NEG
#R greater trochanteric femur fracture: No surgical intervention required per ortho.
#Essential HTN: BB with holding parameters
#HLD: Cont statin
#Hypokalemia, replete prn
#Hypophosphatemia, replete
#Bedbound since November 2024 with intermittent confusion at baseline
#DM2: SSI/accuchecks
#Concern for vascular dementia
#Amputation of the left toes 1-3
#Osseous destruction of T8-T9
#Splenomegaly
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
#Wounds:
-Stage IV sacral pressure injury, wound debridement done by surgeon on April 30, 2025-necrotic skin subcutaneous tissue muscle and fascia debrided there was also 6 cm space in the ischial area with malodorous pus. Exposed sacral bone , no
granulation tissue noted today with dressing change
-stage I B/L heel pressure injury
-wound care and change of position.
-Tylenol 1,000mg TID for pain
-Oxycodone 2.5 mg every 6 hours-Sister does not think he has a true allergy.
# DVT prophylaxis-heparin on hold 48 hours post procedure per surgery. Continue SCDs, restart today 05/02/25.
# DNR Status now - daughters and sister all want DNR
Called sister and daughters today. Both good to message. Daughters do not have answering machine.
Ethics committee meeting was held on 05/01/2025.
Discussed with GI-PEG tube planned for 05/05/2025 if family continues to want PEG tube
Discussed with infectious disease
Discussed with nursing
Overall prognosis is very poor and quality of his life is really poor at this point. Meaningful recovery is slim to nil. This was conveyed to the family multiple times. While they agreed to DNR they did not want hospice yet. If they continue to
want to continue with active treatments needs a PEG tube
time spent over 50 min
Original Note:
Today's Communication/Plan
-
Restart heparin
Zosyn
Appreciate GI for PEG placement timing
Warm compress for swollen right hand
Assessment / Plan
Assessment / Plan
59 y/o patient had a prolonged hospitalization at [facility] January 11, 2025 to March 17, 2025 for intractable back pain, catheter associated infection, Klebsiella bacteremia. On long-term IV antibiotics cefepime and daptomycin with HD here
for acute change in mental status. Patient was obtunded on arrival and hypotensive. Baseline intermittently confused and bedbound since November 2024 per POA. Able to talk to sister on the phone at baseline.
CT Head: No acute intracranial abnormality noted.There are mild/moderate periventricular and subcortical white matter hypodensities which are nonspecific, however likely sequelae of chronic small vessel ischemic disease.
EEG 04/11/2025: Diffuse cortical dysfunction without focal abnormality. No seizures activity.
Echo 04/11/2025: TDS. EF 60-65%, no RWMA.
MRI brain 04/13/25: There are small foci of restricted diffusion involving the bilateral frontoparietal white matter, the left frontal white matter more anteriorly in the right basal ganglia consistent with acute/subacute infarctions. These may be
embolic in nature given the multivessel territory. Mild atrophy with sequelae of moderate chronic small vessel ischemic disease. Prominent blooming artifact along the left paramedian parietal lobe which is likely sequelae of prior
hemorrhage/hematoma.
CT A/P w/IV contrast 04/15/25: Limited exam, anasarca, splenomegaly, atrophic bilateral kidneys, proctitis indeterminate etiology, diffuse wall thickening of the urinary bladder outlet obstruction without source neurogenic bladder. Small focus of
gas in the bladder. Recent fracture of greater trochanter of right femur. Osseous destructive process of the T8-T9. Abnormal lucent and sclerotic appearance of the bones likely renal osteodystrophy
R Hip x-ray 04/17/25: Findings suggesting subacute fracture of the right greater trochanter.
CXR 04/23: Mild pulmonary vascular congestion. Mild hazy opacity in the right lung base, which could represent atelectasis or pneumonia.
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 However, if there is no history of clot in this region, early thrombus cannot be excluded. Clinical correlation recommended
#Acute/subacute CVAs :
-MRI brain above, likely embolic in nature
# Mitral valve vegetation
-Noted on ALENA on 04/30
-Could be source of embolic stroke
-6 week course of antibiotics per ID - currently on zosyn
# Unstageable necrotic sacral wound -debridement on 04/30
-Post op day 2 sacral debridement - restart heparin today
- Wound culture revealed klebsiella, proteus and enterococcus species
- No granulation tissue per wound care - poor prognosis
#Right hand swelling
- Increased from before. Known clot in right hand. Warm compress
#Acute metabolic encephalopathy
-Multifactorial due to hypotension, polypharmacy, hypovolemia, (possibly) acute/subacute CVAs, and likely vascular dementia
-started on IV Synthroid, endocrine saw in c/s
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
-EEG without seizure activity
-Cont to hold gabapentin/Haldol
-Dobhoff placed on 04/18/25 for feeds - replaced 04/28/25 because it got clogged - length adjusted from 80 to 65 per previous as night team was concerned with length - repeat x-ray good position
-As pt's sister wants to continue aggressive care, GI consulted for PEG placement - pressure wound from [facility] noted - request GI to see for PEG
#Febrile
#H/O VRE and Klebsiella bacteremia:
-admitted on daptomycin/cefepime and transitioned to IV Zosyn per ID. Now off abx as per ID as d/c records indicate completion of antibiotics at [facility] and unclear as to why they were started at [facility]. Cultures were negative and pt was
afebrile.
-04/23/25AM temp 101.2 F. Septic w/u with BCxs (which are NGTD) and CXR (as above). Abx ordered but stopped by ID.
-Zosyn started 04/26/2025 to cover for positive blood cultures with klebsiella
-Infectious disease following
#Pancytopenia:
-anemia likely secondary to chronic kidney disease
-BMBx and MM work up was done at [facility] revealing no BM or genetic mutations
-Heme/onc appreciated for possible eval for TTP, no TTP as no schistocytes and normal LDH
-Status post 2 units of PRBCs this admission
Thrombocytopenia and leukopenia resolved
#Anxiety/depression
-Psychiatric valuation appreciated. BuSpar discontinued.
-Taper off lexapro per psych. 10mg daily for 7 days then discontinue on 05/07.
#Lupus anticoagulant positive likely contributing to hypercoagulable state. Heparin bridge started. Bridged to warfarin once PEG tube is placed.
#Hypothyroidism - repeat TSH 14.4 and free T4 0.72. Okay to transition from IV levothyroxine 75 to PO 75 per endocrinology
#Elevated troponin, nonischemic myocardial injury and due to underlying ESRD
#Chronic HFpEF: cont BB
#ESRD: cont HD M/W/F, renal following
#PAF: Cont BB/heparin drip
#? Metastatic disease: Hospital records from [facility] revealed concerns for metastatic disease after MRI of spine done. Some proctocolitis of bowels noted on imaging as well. CT A/P revealed no obvious metastatic disease
#Diarrhea: C diff NEG 04/13, c.diff (-) 04/29
#R greater trochanteric femur fracture: No surgical intervention required per ortho.
#Essential HTN: BB with holding parameters
#HLD: Cont statin
#Hypokalemia, replete prn
#Hypophosphatemia, replete
#Bedbound since November 2024 with intermittent confusion at baseline
#DM2: SSI/accuchecks
#Concern for vascular dementia
#Amputation of the left toes 1-3
#Osseous destruction of T8-T9
#Splenomegaly
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
#Wounds unstageable
-Unstageable sacral pressure injury
-stage I B/L heel pressure injury
-wound care
-Tylenol 1,000mg TID for pain
- Will also start oxycodone 2.5 mg every 6 hours-Sister does not think he has a true allergy
# DVT prophylaxis-heparin
# DNR Status now
Anticipated Discharge: > 48 hours
Subjective/Interval History
-
Date of Service: May 02, 2025
Remains obtunded.
Objective Data
-
Labs:
Laboratory Results
05/01/25 05/02/25
21:55 05:01
WBC 17.4 H 16.4 H
Hgb 8.4 L 9.0 L
Hct 26.0 L 27.6 L
Plt Count 232 242
Sodium 133 L
Potassium 3.7
Chloride 101
Carbon Dioxide 21 L
BUN 62 H
Creatinine 2.5 H
Glucose 115 H
Calcium 9.8
Total Bilirubin 1.0
AST 18
ALT 14
Alkaline Phosphatase 360 H
Vital Signs:
Vital Signs
Temp Pulse Resp BP Pulse Ox
97.9 F 92 17 161/72 100
05/02/25 07:15 05/02/25 06:00 05/02/25 06:00 05/02/25 06:00 05/02/25 06:00
I&O
05/01/25 05/02/25 05/03/25
06:59 06:59 06:59
Intake Total 1310 / 1310 140 / 140
Output Total 0 / 0
Balance 1310 / 1310 140 / 140
Review of Systems
-
Unable to obtain full review of systems at this time due to: Dementia and Acuity
Physical Exam
-
General: Appears Chronically Ill
Respiratory: Clear to Auscultation
Cardiac: Regular Rhythm and S1/S2
GI: Soft, Nondistended and Normal Bowel Sounds
Musculoskeletal: No Cyanosis and Other (Increased right hand edema)
Psych: Calm
[2025-05-02] MEDS: DAKIN'S SOLUTION 0.125% 1/4 STRENGTH 473 ML TOPICAL (10:57)
[2025-05-02] MEDS: DESENEX/MITRAZOL/ZEASORB 1 APPLIC TOPICAL ×2 (10:57→22:12)
[2025-05-02] MEDS: NSS (PRESERVATIVE FREE) 10 ML IV (10:58)
[2025-05-02] MEDS: PROTONIX IV 40 MG IV (10:59)
[2025-05-02] MEDS: SANTYL OINTMENT TOPICAL (11:01)
--- NOTE | 2025-05-02 11:37 | W.PN.ID1 ---
Date of Service
Date of Service: May 02, 2025
Today's Communication
Continue antibiotics.
Assessment / Plan
Bacteremia
- 04/23 blood cx's blood culture with gram-negative rods, but could not speciate.
- 04/23 CXR: mild opacity RLL atelectasis vs PNA
- 04/26/25 blood cx's with Klebsiella aerogenes and Proteus vulgaris. These organisms were also recovered from the unstageable sacral decubiti.
-04/23 Sacral wound polymicrobial growth, including Proteus, Klebsiella, VRE (amp sensitive) and an additional strep species
- Potential sources of bacteremia include sacral wound, HD line.
Fever - intermittent
Leukocytosis
Suspected mitral valve vegetation
- Given recent bacteremia, there is high probability that if truly a vegetation it is infected.
Encephalopathy; ongoing
Hx VRE / Klebsiella infection 2* HD cath CLABSI (at OSH)
- Previously on dapto / cefepime when arrived from nursing facility.
- Completed course of therapy
Unstageable sacral wound
Penile dermal necrosis
Vascular dementia
P A-fib (on Eliquis)
ESRD�HD (MWF)
DM
PAD
CHF
Anxiety/depression
Recommendations:
Continue Zosyn (d#7). Given findings on echocardiogram will likely need a 6-week course of antibiotics. Possible transition to ertapenem once transferred back to senior care.
Continue local care to sacral wound. Images reviewed from today. Progressive necrosis noted.
Overall prognosis at this point appears exceedingly poor to nonexistent.
Patient with jyrn-do-vqeuecjdssk wound healing capacity given underlying cachexia, low albumin and protein stores. Progressive dermal gangrene of sacral area is evidence of this.
Patient is hospice appropriate, as there is no likelihood of recovery of any quality of life.
Ongoing aggressive care is increasingly becoming futile and serving only to prolong eventual passing.
����������������������������������������������������������
Chief Complaint
-: Fever, Bacteremia and Other (Change in mental status, failure to thrive)
Subjective / Review of Systems
Review of Systems: No Fever
Vital Signs / Physical Exam
Vital Signs
Vital Signs
Temp Pulse Resp BP Pulse Ox
98.7 F 95 22 139/76 98
05/02/25 11:02 05/02/25 10:00 05/02/25 10:00 05/02/25 10:00 05/02/25 10:00
Physical Exam
Constitutional: Acutely Ill, Chronically Ill and Cachetic
Head: Other (Temporal wasting. Nasal Dobbhoff in place.)
Eyes: Sclera Anicteric
Cardiovascular: S1/S2; Negative S3/S4
Pulmonary: Non Labored; Negative Wheezes
Gastrointestinal: Soft and Non Distended
Extremities: Negative Edema, Cyanosis or Erythema
Wound: Other (Sacral wound dressed.)
Lines: CVP (Left IJ) and HD Cath (Left ACW)
Objective Data
Lab Data
Lab Results
05/02/25 05:01
05/02/25 05:01
PT 19.6 Sec (11.4-14.6) H 04/24/25 05:43
INR 1.60 04/24/25 05:43
APTT Cancelled 04/30/25 21:15
Estimated Creat Clear 30 ml/min 05/02/25 05:01
Lactic Acid Cancelled 04/10/25 14:15
Total Bilirubin 1.0 mg/dl (0.2-1.3) 05/02/25 05:01
AST 18 U/L (17-59) 05/02/25 05:01
ALT 14 U/L (0-50) 05/02/25 05:01
Alkaline Phosphatase 360 U/L (38-126) H 05/02/25 05:01
Most recent labs reviewed.
Micro Results:
04/30/25 13:16 Wound Culture - Preliminary
Sacral Enterococcus species
Klebsiella aerogenes
Proteus vulgaris
Gram Stain - Preliminary
04/28/25 03:23 Blood Culture - Preliminary
Blood/Venous No Growth in 4 days- Final report to follow
04/29/25 16:56 Blood Culture - Preliminary
Blood/Venous No Growth in 48 hours- Final report to follow
04/29/25 15:06 Blood Culture - Preliminary
Blood/Venous No Growth in 48 hours- Final report to follow
04/30/25 13:16 Anaerobic Culture - Preliminary
Sacral Culture pending. Anaerobic cultures are examined after 3
days incubation. Additional information to follow.
04/28/25 03:18 Blood Culture - Preliminary
Blood/Venous Klebsiella aerogenes
Gram Stain - Preliminary
04/23/25 14:38 Blood Culture - Final
Blood/Venous Gram negative bacilli
Gram Stain - Final
04/23/25 18:00 Wound Culture - Final
Sacral Proteus vulgaris
Klebsiella aerogenes
Enterococcus faecalis - VRE
Streptococcus species
Gram Stain - Final
04/26/25 11:09 Blood Culture - Preliminary
Blood/Venous Klebsiella aerogenes
Gram Stain - Preliminary
04/26/25 10:15 Blood Culture - Preliminary
Blood/Venous Proteus vulgaris
Klebsiella aerogenes
Gram Stain - Preliminary
04/29/25 04:10 C. difficile GDH Antigen & Toxins - Final
Feces/Stool Negative for toxigenic C.difficile
04/23/25 18:00 Blood Culture - Final
Blood/Venous No Growth - Final Report
04/10/25 12:30 Blood Culture - Final
Blood/Venous No Growth - Final Report
04/10/25 10:12 Blood Culture - Final
Blood/Venous No Growth - Final Report
04/13/25 14:55 C. difficile GDH Antigen & Toxins - Final
Feces/Stool Negative for toxigenic C.difficile
04/11/25 04:12 MRSA Screen - Final
Nose Staph aureus MRSA
Imaging:
04/30/2025 ECHO (ALENA): EF approximately 60%. Mitral valve with a small mobile echodensity on the atrial side of the mitral annulus. Echodensity is bright and mobile and may be part of the mitral annular calcification, but cannot exclude vegetation.
Please see full dictation for additional detail.
04/11/2025 ECHO (TTE): technically difficult study. EF approximate 60%. Aortic sclerosis noted. Mitral valve is thickened with dense mitral annular calcification. Adequate mitral valve leaflet excursion noted. Please see full dictation for
additional detail.
04/15/2025 CT abdomen/pelvis with contrast: rectum shows concentric wall thickening compatible with some form of proctitis. Perirectal inflammatory stranding is noted, but no signs of free fluid or drainable collection. Bones are diffusely
demineralized. Osseous destructive process at T8-T9. Recent fracture of the greater trochanter of the right femur is noted. Please see full dictation for additional detail.
04/09/2025 MRI brain without contrast: There are small foci of restricted diffusion involving the bilateral frontoparietal white matter, the left frontal white matter more anteriorly in the right basal ganglia consistent with acute/subacute
infarctions. These may be embolic in nature given the multivessel territory. Mild atrophy with sequelae of moderate chronic small vessel ischemic disease.
Prominent blooming artifact along the left paramedian parietal lobe which is likely sequelae of prior hemorrhage/hematoma.
Care Review
Plan reviewed with: Physician (Hospitalist, Residents)
--- NOTE | 2025-05-02 12:06 | WOUNDNOTE ---
[facility] RN NOTE: Visited patient to follow up s/p debridement of sacral wound on 04/30. When compared with pictures from 04/23 and prior to debridement, it appears that wound has deteriorated. The base of wound is dark, necrotic appearing and no granular
or pink tissue is noted. The wound is surrounded by non-blanchable pink skin and a necrotic, indurated area is extending into the sacrum. The measurements added in the worklist reflect the increased length of the wound. The wound now measures
15x5x3.5. There is a tunnel that extends 6 cm at 7 oclock. A slight odor is also noted. Wound care completed as ordered. Discussed wound findingd with Dr. Cummins and TT Dr. Contreras with update. Patient also has new abrasion on nose which appears to
be from dobhoff adhesive. No-sting barrier applied. Heels with stage 1 PI and adhesive foam applied. Patient has a rectal tube to help protect skin. Penis wounds area dry and stable. Patient was placed on left semi-side lying position and heels
off-loaded on pillows. Patient has several comorbidities including ESRD and per chart review has a poor prognosis. Wounds may worsen and new wounds may develop even with optimal care.
[2025-05-02 12:10] LABS: Glucose - Point of Care 142 mg/dl (70-99)
[2025-05-02] MEDS: DAILY VITAMIN/CENTRUM TUBE (12:11)
[2025-05-02] MEDS: ZINC TUBE (12:11)
[2025-05-02] MEDS: LEXAPRO TUBE (12:11)
[2025-05-02] MEDS: VITAMIN B1 TUBE (12:11)
[2025-05-02] MEDS: MYCOSTATIN ORAL SUSPENSION 5 ML PO ×3 (12:16→22:12)
--- NOTE | 2025-05-02 12:35 | PTCARENOTE ---
Addendum entered by Leanne Hebert RN 05/02/25 13:30:
Discussed Dobhoff xray results with Dr. Trevizo, got approval to flush and start tube feeds. Notified resident Dion.
Original Note:
Nightshift RN endorsed to dayshift RN concerns regarding Dobhoff tube placement and follow up xray. These issues were discussed with resident Bailey Ashley and dobhoff was repositioned and reevaluated with xray. At this time there is no aspirate from
dobhoff, difficulty auscultating confirmation. GI team is to come and see patient today and will evaluate the Dobhoff. Medications via dobhoff and tube feeds to be held until further confirmation. Wound care provided with wound care team. Oral care
completed and Nystatin applied due to white patched on tongue and lips today. Patient is receiving dialysis now.
--- NOTE | 2025-05-02 13:23 | W.PN.UPDATE ---
Update Note
Progress Note Update
Sister called back. I had a very detailed conversation with the sister..
Discussed about how his life is going to be if he does not go on hospice versus he goes on hospice.
We discussed about 6 weeks of antibiotic, going through procedure for PEG tube, having to jean his sacral decubitus ulcer which is deep along with other medical conditions.
Also discussed about hospice. She wants to visit him either this or Monday and make a final decision. She asked if he does go on hospice if he can come to [place] where he wanted to be at the end.
She will also talk to [place].
She was very appreciative of the information and the discussion today.
Case management need to check if pt can get to MD if gets on hospice.
[2025-05-02] MEDS: RETACRIT 10000 UNITS IV (13:26)
[2025-05-02] MEDS: FLEXBUMIN 25% FOR HEMODIALYSIS 12.5 GRAMS IV ×2 (14:16→15:33)
[2025-05-02] MEDS: MANNITOL 25% 12.5 GRAMS IV (14:16)
--- NOTE | 2025-05-02 14:31 | CM ---
Addendum entered by Rachel Tijerina 05/02/25 17:06:
DEO Rmaos received a message and consult because Medical Attending spoke to the sister Geovanni who might consider hospice and also will visit over the weekend.
DEO Ramos took this opportunity to introduce self to the sister Geovanni. DEO Ramos discussed Case Management as discharge planners, but more importantly, assistance with trying to figure difficult situations re: discharge for patients and Families.
Geovanni is aware that DEO will be her point person.
DEO Ramos asked for history of her brother & told the following:
-that there are 2 daughters, Kamryn & Esha, one is 22y and the other is 24
-Geovanni is a sister, and there are two others: Meenakshi & Megan
-that Ms. 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
-daughters lived with him and their mom up until 2019 then eventually from
-started dialysis in 2018, came to [place] living alone after moving out of [facility]'s mother's home
Geovanni was able to describe in detail what she knows about her brother so has a good understanding. DEO Ramos listened, then acknowledged what she has experience with her brother and provided support. Geovanni said that her brother speaks to her, she
believes he sometimes will not speak to the staff. However, she knows that he could be worse with his mentation, she does not want him to suffer, she is aware that he may never heal.
Geovanni have felt very unsupported with how some Medical Team members have spoken to her and then she has praised others. DEO listened and provided support.
DEO Ramos brought up the notion of speaking with the daughters offering video visit, which she thinks would be a great idea because they have not seen him since 2019.
DEO Ramos then discussed the option of a large Family meeting with the Medical Team that would include his daughters, and she thought this would be a great idea and welcomes this.
DEO Ramos asked Geovanni to share the conversation she had with the Medical Attending and it was re: the possibility of Hospice, but in [place] because she knows that her brother would want to return there. DEO Rachel shared that logistically, it may be
challenging in her current state especially around traveling a long distance (over 2 hours in which family would pay an ambulance for), but DEO Rachel would provide her with all the information, good or indifferent so she is aware and can make an
informed decision. DEO Jonnyradha shared that hospice could start in this area and [facility] hospice and that it could be at a facility as well. Geovanni is leaning towards him not returning to [facility].
Geovanni is not sure what decision to make, but DEO Ramos got the impression that she knows all this is very difficult for him. Geovanni shared that she will talk to her family about all considerations and ready to schedule a family meeting.
Geovanni schedule for meeting (still has to talk to dtr's & get their schedule)
-05/06 10am to 12 she can be free over the phone
-05/08 at 11am
-05/12 she will be here in person from [place] and would prefer this date. This would give time to talk to her neices to see what their schedule is like.
PLAN: Family Meeting.
Original Note:
Following up on Patient.
DEO Ramos met with the tar pot man who stated that even though the would was debrided the other day, it looks worse to her. From Ethics Committee meeting and subsequent recent emails, a Family Meeting will be planned that will include Family,
Palliative Care, MD Team, Case Management that will be organized by DEO Ramos. The hope is and this may take more than one meeting, is to collectively foster honest communication and help families navigate difficult discussions and topics hoping to
reach goals/ plan.
Additionally, DEO Ramos will introduce self to the family via phone, build a rapport, and offer video conference visit, mainly for the daughter.
PLAN: [facility] Family Meeting w/ Hospital & Family as well as Video Conference Visit opportunity family.
--- NOTE | 2025-05-02 14:50 | W.PN.NEPH.HD ---
Assessment
-
Seen on HD. no new issues. VSS, access ok
await determination of GOC
Progress Note - Hemodialysis
-
Date of Service: May 02, 2025
Duration: 30 minutes and 3 hours
Potassium Bath: 4
Calcium Bath: 2.5
Opti-Dialyzer: 160
Ultrafiltration: Other (2kg)
Blood Flow: 400
Dialysate Flow: 600
Heparin: 0
EPO: 04081 units
--- NOTE | 2025-05-02 15:22 | W.PN.UPDATE ---
Update Note
Progress Note Update
GI following peripherally, discussed with Case Management, RN and Internal Medicine. Family Meeting to take place to discuss possible hospice. If the family does not wish to proceed with hospice then would need PEG on Monday. Please let us know
family decision and if PEG needed who would be signing consent for the procedure.
[2025-05-02 15:35] LABS: APTT 34.8 Sec (23.4-35.0)
[2025-05-02 15:37] LABS: Hematocrit 27.6 % (39.0-52.0); Hemoglobin 8.9 g/dL (13.0-18.0); Mean Corp Hgb Conc. 32.2 g/dL (33.0-37.0); Mean Corpuscular Volume 92.0 fL (80.0-94.0); Platelet Count 227 10^3/uL (130-400); Red Cell Dist. Width 23.8 % (11.5-14.5)
[2025-05-02] MEDS: HEPARIN 25000 UNITS/250 ML IV (15:45)
--- NOTE | 2025-05-02 16:12 | PTCARENOTE ---
Patient has been restraint free this shift. Patient is nonverbal and does lift right arm up against gravity at times. Tubes and lines hidden from patient. Safety assessments completed.
--- NOTE | 2025-05-02 17:15 | WOUNDNOTE ---
[employer] 1965 [id number]
[2025-05-02] MEDS: NOVOLOG FLEXPEN 4 UNITS SC ×2 (17:31→23:33)
[2025-05-02] MEDS: NOVOLOG FLEXPEN-MODERATE RESISTANCE 1 UNITS SC ×2 (17:31→23:33)
[2025-05-02] MEDS: CRESTOR 10 MG TUBE (17:31)
[2025-05-02] MEDS: TYLENOL 1000 MG TUBE ×2 (17:31→22:12)
[2025-05-02 17:41] LABS: Glucose - Point of Care 161 mg/dl (70-99)
[2025-05-02] MEDS: LOPRESSOR 50 MG TUBE (22:12)
--- NOTE | 2025-05-02 22:15 | PTCARENOTE ---
[place] text VAT RN to make aware of TL IJ dressing loose. Catheter pulling out of insertion site and insertion site exposed. pt slightly diaphoretic and appears dressing having difficulty staying intact. Difficult to see if stitches are intact. VAT
RN to come to bedside to assess.
[2025-05-02 22:19] LABS: APTT 45.2 Sec (23.4-35.0)
[2025-05-02] MEDS: HEPARIN 5200 UNITS IV (22:48)
[2025-05-02 23:43] LABS: Glucose - Point of Care 191 mg/dl (70-99)
--- NOTE | 2025-05-02 23:55 | VATNOTE ---
VAT asked to RD patient's L TLC as dressing was coming off. Catheter found to be out 2cm and sutures not securing catheter al all. Brownish drainage around site. Site cleaned and catether secured with steri strips. Spoke to MATERIAL HANDLER 1ST SHIFT to update. Luna MATERIAL HANDLER 1ST SHIFT to
reach out to attending/ IR and advise next steps. Patient is a BL limb restriction. Currently heparin infusing through TLC. Primary RN aware. Will continue to monitor.
[2025-05-03] VITALS (12 sets, daily range): BP systolic 134–165; BP diastolic 54–75; BMI 18.9
--- NOTE | 2025-05-03 01:03 | PTCARENOTE ---
TANVIR Carrasco was updated on TL IJ and spoke to VAT RN directly. Patient has bilateral limb restrictions for DVT/AV fistula; difficult to obtain alternate access. STAT CXR obtained to confirm placement. Ok to keep using TL IJ per TANVIR Carrasco. IJ is
secured in place at this time; refer to VAT RN note. TANVIR will place consult for IR to assess/readjust tomorrow. VAT RN Justine updated.
--- NOTE | 2025-05-03 02:40 | W.PN.UPDATE ---
Update Note
Progress Note Update
Notified by RN and VAT team pt's Left IJ central line suture not intact and catheter slightly dislodged. Rx Xray to check placement, reviewed by CVICU and Dr. Santiago hospitalist. Placement ok, but will need to be reinforced. IR reconsulted.�
[2025-05-03 05:19] LABS: Glucose - Point of Care 237 mg/dl (70-99)
[2025-05-03] MEDS: SYNTHROID 75 MCG TUBE (05:30)
[2025-05-03] MEDS: ZOSYN 50 IV ×3 (05:41→21:58)
[2025-05-03 05:57] LABS: APTT 75.3 Sec (23.4-35.0)
[2025-05-03] MEDS: NOVOLOG FLEXPEN-MODERATE RESISTANCE 3 UNITS SC ×2 (06:11→12:07)
[2025-05-03] MEDS: NOVOLOG FLEXPEN 4 UNITS SC ×3 (06:12→17:51)
[2025-05-03 06:15] LABS: ALT (SGPT) 13 U/L (0-50); AST (SGOT) 17 U/L (17-59); Albumin 2.3 g/dl (3.5-5.0); Alkaline Phosphatase 310 U/L (38-126); Blood Urea Nitrogen 46 mg/dl (9-20); Calcium 9.3 mg/dl (8.4-10.2); Carbon Dioxide 27 mmol/L (22-30); Chloride 101 mmol/L (98-107); Estimated Creatinine Clearance 38 ml/min; Glucose 208 mg/dl (70-99); Potassium 3.2 mmol/L (3.5-5.1); Sodium 134 mmol/L (135-145); Total Protein 5.0 g/dl (6.3-8.2); eGFR 40.38
[2025-05-03 06:29] LABS: Hematocrit 26.0 % (39.0-52.0); Hemoglobin 8.3 g/dL (13.0-18.0); Mean Corp Hgb Conc. 31.9 g/dL (33.0-37.0); Mean Corpuscular Volume 92.9 fL (80.0-94.0); Platelet Count 221 10^3/uL (130-400); Red Cell Dist. Width 24.1 % (11.5-14.5)
[2025-05-03 07:02] LABS: Nucleated Red Blood Cells % 0 % (-)
[2025-05-03 07:03] LABS: Anisocytosis 2+; Macrocytosis 3+; Polychromasia 2+
[2025-05-03 07:33] LABS: Normal RBC Morphology No
--- NOTE | 2025-05-03 07:34 | W.PN.UPDATE ---
Update Note
Progress Note Update
I saw and evaluated the patient. I reviewed the resident�s note and agree with findings and plan as documented in the resident�s note.
Pt nonverbal.
Gen: NAD, NCAT, appears chronically ill
Eyes: EOMI, PERRLA, no scleral icterus.
Neck: supple.
CV: RRR, +S1/S2, no m/r/g.
Resp: CTAB, no rales, wheezes, or rhonchi.
Abd: +BS, soft, NT, ND
Skin: No rashes.
Neuro: CN 2-12 intact, non-focal.
Psych: calm
04/28/25 03:23 Blood/Venous Blood Culture - Final
No Growth - Final Report
04/29/25 16:56 Blood/Venous Blood Culture - Preliminary
No Growth in 72 hours- Final report to follow
04/29/25 15:06 Blood/Venous Blood Culture - Preliminary
No Growth in 72 hours- Final report to follow
04/30/25 13:16 Sacral Wound Culture - Preliminary
Enterococcus species
Klebsiella aerogenes
Proteus vulgaris
04/30/25 13:16 Sacral Gram Stain - Preliminary
04/30/25 13:16 Sacral Anaerobic Culture - Preliminary
Culture pending. Anaerobic cultures are examined after 3
days incubation. Additional information to follow.
04/28/25 03:18 Blood/Venous Blood Culture - Preliminary
Klebsiella aerogenes
04/28/25 03:18 Blood/Venous Gram Stain - Preliminary
04/23/25 14:38 Blood/Venous Blood Culture - Final
Gram negative bacilli
04/23/25 14:38 Blood/Venous Gram Stain - Final
04/23/25 18:00 Sacral Wound Culture - Final
Proteus vulgaris
Klebsiella aerogenes
Enterococcus faecalis - VRE
Streptococcus species
04/23/25 18:00 Sacral Gram Stain - Final
04/26/25 11:09 Blood/Venous Blood Culture - Preliminary
Klebsiella aerogenes
04/26/25 11:09 Blood/Venous Gram Stain - Preliminary
04/26/25 10:15 Blood/Venous Blood Culture - Preliminary
Proteus vulgaris
Klebsiella aerogenes
04/26/25 10:15 Blood/Venous Gram Stain - Preliminary
04/29/25 04:10 Feces/Stool C. difficile GDH Antigen & Toxins - Final
Negative for toxigenic C.difficile
04/23/25 18:00 Blood/Venous Blood Culture - Final
No Growth - Final Report
04/10/25 12:30 Blood/Venous Blood Culture - Final
No Growth - Final Report
04/10/25 10:12 Blood/Venous Blood Culture - Final
No Growth - Final Report
04/13/25 14:55 Feces/Stool C. difficile GDH Antigen & Toxins - Final
Negative for toxigenic C.difficile
04/11/25 04:12 Nose MRSA Screen - Final
Staph aureus MRSA
MRI brain 04/13/25: Small foci of restricted diffusion involving the bilateral frontoparietal white matter, the left frontal white matter more anteriorly in the right basal ganglia consistent with acute/subacute infarctions. These may be embolic in
nature given the multivessel territory. Mild atrophy with sequelae of moderate chronic small vessel ischemic disease. Prominent blooming artifact along the left paramedian parietal lobe which is likely sequelae of prior hemorrhage/hematoma.
Acute/subacute CVAs :
-MRI brain above, likely embolic in nature
-Heparin gtt
Acute metabolic encephalopathy
-Multifactorial due to hypotension, polypharmacy, hypovolemia, acute/subacute CVAs, and likely vascular dementia
-started on Synthroid, endocrine saw in c/s
-EEG without seizure activity
-Cont to hold gabapentin/Haldol
-Dobhoff placed on 04/18/25 for feeds, replaced again due to blockage
-As pt's sister and daughter wants to continue with PEG, GI consulted for PEG placement, timing TBD by GI, likely 05/05/25
h/o VRE and Klebsiella bacteremia ([facility] [employer] [facility]):
-admitted on daptomycin/cefepime and transitioned to IV Zosyn per ID. Then was discontinued prior as per ID as d/c records indicate completion of antibiotics at [place] and unclear as to why they were started at [facility].
-Klebsiella and Proteus vulgaris bacteremia noted on blood culture 04/26/2025. Repeat cultures from 04/28/2025 with Klebsiella. Currently Zosyn. Likely source is sacral decubitus ulcer which has been debrided
-ALENA 04/30/25 showed small mobile MV density, cannot exclude vegetation
-Will need to be treated as endocarditis with 6 weeks abx
-ID following
Pancytopenia:
-anemia likely secondary to chronic kidney disease
-BMBx and MM work up was done at [place] revealing no BM or genetic mutations
-Heme/onc appreciated for possible eval for TTP, no TTP as no schistocytes and normal LDH, antibody panels for other causes of hypercoagulable states pending
-s/p 2U pRBCs this admission
-Thrombocytopenia and leukopenia have resolved
Other problems:
#Lupus anticoagulant positive likely contributing to hypercoagulable state. Heparin bridge restarted. Bridged to warfarin once PEG tube is placed
#Hypothyroidism-started on Synthroid. Repeat thyroid function tests are better, switched to PO
#Elevated troponin, nonischemic myocardial injury and due to underlying ESRD
#Chronic HFpEF: cont BB
#ESRD: cont HD M/W/F, renal following
#PAF: Cont BB/heparin drip
#Anxiety/depression: cont Lexapro. Psychiatric valuation appreciated. BuSpar discontinued
#? Metastatic disease: Hospital records from [place] revealed concerns for metastatic disease after MRI of spine done. Some proctocolitis of bowels noted on imaging as well. CT A/P revealed no obvious metastatic disease
#Diarrhea: C diff NEG
#R greater trochanteric femur fracture: No surgical intervention required per ortho.
#Essential HTN: BB with holding parameters
#HLD: Cont statin
#Hypokalemia, replete prn
#Hypophosphatemia, replete
#Bedbound since November 2024 with intermittent confusion at baseline
#DM2: SSI/accuchecks
#Concern for vascular dementia
#Amputation of the left toes 1-3
#Osseous destruction of T8-T9
#Splenomegaly
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
#Wounds:
-Stage IV sacral pressure injury, wound debridement done by surgeon on April 30, 2025-necrotic skin subcutaneous tissue muscle and fascia debrided there was also 6 cm space in the ischial area with malodorous pus. Exposed sacral bone , no
granulation tissue noted today with dressing change
-stage I B/L heel pressure injury
-wound care and change of position.
-Tylenol 1,000mg TID for pain
-Oxycodone 2.5 mg every 6 hours-Sister does not think he has a true allergy.
DNR/Heparin gtt
[2025-05-03] MEDS: LOPRESSOR 50 MG TUBE ×2 (08:21→21:57)
[2025-05-03] MEDS: MYCOSTATIN ORAL SUSPENSION 5 ML PO ×4 (08:21→21:57)
[2025-05-03] MEDS: ZINC 50 MG TUBE (08:21)
[2025-05-03] MEDS: DAILY VITAMIN/CENTRUM 15 ML TUBE (08:21)
[2025-05-03] MEDS: VITAMIN B1 100 MG TUBE (08:21)
[2025-05-03] MEDS: NSS (PRESERVATIVE FREE) 10 ML IV (08:22)
[2025-05-03] MEDS: DESENEX/MITRAZOL/ZEASORB 1 APPLIC TOPICAL ×2 (08:22→21:58)
[2025-05-03] MEDS: PROTONIX IV 40 MG IV (08:22)
[2025-05-03] MEDS: TYLENOL 1000 MG TUBE ×3 (08:22→21:57)
--- NOTE | 2025-05-03 09:06 | W.PN.HOSP.TC ---
Today's Communication/Plan
-
Continue Zosyn
Appreciate IRAD for IJ
Continue goals of cares discussion with family this weekend
Replete potassium
Assessment / Plan
Assessment / Plan
59 y/o patient had a prolonged hospitalization at [facility] January 11, 2025 to March 17, 2025 for intractable back pain, catheter associated infection, Klebsiella bacteremia. On long-term IV antibiotics cefepime and daptomycin with HD here
for acute change in mental status. Patient was obtunded on arrival and hypotensive. Baseline intermittently confused and bedbound since November 2024 per POA. Able to talk to sister on the phone at baseline.
CT Head: No acute intracranial abnormality noted.There are mild/moderate periventricular and subcortical white matter hypodensities which are nonspecific, however likely sequelae of chronic small vessel ischemic disease.
EEG 04/11/2025: Diffuse cortical dysfunction without focal abnormality. No seizures activity.
Echo 04/11/2025: TDS. EF 60-65%, no RWMA.
MRI brain 04/13/25: There are small foci of restricted diffusion involving the bilateral frontoparietal white matter, the left frontal white matter more anteriorly in the right basal ganglia consistent with acute/subacute infarctions. These may be
embolic in nature given the multivessel territory. Mild atrophy with sequelae of moderate chronic small vessel ischemic disease. Prominent blooming artifact along the left paramedian parietal lobe which is likely sequelae of prior
hemorrhage/hematoma.
CT A/P w/IV contrast 04/15/25: Limited exam, anasarca, splenomegaly, atrophic bilateral kidneys, proctitis indeterminate etiology, diffuse wall thickening of the urinary bladder outlet obstruction without source neurogenic bladder. Small focus of
gas in the bladder. Recent fracture of greater trochanter of right femur. Osseous destructive process of the T8-T9. Abnormal lucent and sclerotic appearance of the bones likely renal osteodystrophy
R Hip x-ray 04/17/25: Findings suggesting subacute fracture of the right greater trochanter.
CXR 04/23: Mild pulmonary vascular congestion. Mild hazy opacity in the right lung base, which could represent atelectasis or pneumonia.
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 However, if there is no history of clot in this region, early thrombus cannot be excluded. Clinical correlation recommended
#Left IJ placement
-One stitch noted to be out - pulled out 2' per night team - repeat x-ray in good place - IRAD aware
#Acute/subacute CVAs :
-MRI brain above, likely embolic in nature
# Mitral valve vegetation
-Noted on ALENA on 04/30
-Could be source of embolic stroke
-6 week course of antibiotics per ID - currently on zosyn
# Unstageable necrotic sacral wound -debridement on 04/30
-Post op day 3 sacral debridement -
- Wound culture revealed klebsiella, proteus and enterococcus species
- No granulation tissue per wound care - poor prognosis
#Right hand swelling
- Increased from before. Known clot in right hand. Warm compress
#Acute metabolic encephalopathy
-Multifactorial due to hypotension, polypharmacy, hypovolemia, (possibly) acute/subacute CVAs, and likely vascular dementia
-started on IV Synthroid, endocrine saw in c/s
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
-EEG without seizure activity
-Cont to hold gabapentin/Haldol
-Dobhoff placed on 04/18/25 for feeds - replaced 04/28/25 because it got clogged - length adjusted from 80 to 65 per previous as night team was concerned with length - repeat x-ray good position
-As pt's sister wants to continue aggressive care, GI consulted for PEG placement - pressure wound from dobhoff noted - If family continues to want aggressive care, PEG likely on monday
#Febrile
#H/O VRE and Klebsiella bacteremia:
-admitted on daptomycin/cefepime and transitioned to IV Zosyn per ID. Now off abx as per ID as d/c records indicate completion of antibiotics at [facility] and unclear as to why they were started at [facility]. Cultures were negative and pt was
afebrile.
-04/23/25AM temp 101.2 F. Septic w/u with BCxs (which are NGTD) and CXR (as above). Abx ordered but stopped by ID.
-Zosyn started 04/26/2025 to cover for positive blood cultures with klebsiella
-Infectious disease following
#Pancytopenia:
-anemia likely secondary to chronic kidney disease
-BMBx and MM work up was done at [place] revealing no BM or genetic mutations
-Heme/onc appreciated for possible eval for TTP, no TTP as no schistocytes and normal LDH
-Status post 2 units of PRBCs this admission
Thrombocytopenia and leukopenia resolved
#Anxiety/depression
-Psychiatric valuation appreciated. BuSpar discontinued.
-Taper off lexapro per psych.
#Lupus anticoagulant positive likely contributing to hypercoagulable state. Heparin bridge started. Bridged to warfarin once PEG tube is placed.
#Hypothyroidism - repeat TSH 14.4 and free T4 0.72. Okay to transition from IV levothyroxine 75 to PO 75 per endocrinology
#Elevated troponin, nonischemic myocardial injury and due to underlying ESRD
#Chronic HFpEF: cont BB
#ESRD: cont HD M/W/F, renal following
#PAF: Cont BB/heparin drip
#? Metastatic disease: Hospital records from [place] revealed concerns for metastatic disease after MRI of spine done. Some proctocolitis of bowels noted on imaging as well. CT A/P revealed no obvious metastatic disease
#Diarrhea: C diff NEG 04/13, c.diff (-) 04/29
#R greater trochanteric femur fracture: No surgical intervention required per ortho.
#Essential HTN: BB with holding parameters
#HLD: Cont statin
#Hypokalemia, replete prn
#Hypophosphatemia, replete
#Bedbound since November 2024 with intermittent confusion at baseline
#DM2: SSI/accuchecks
#Concern for vascular dementia
#Amputation of the left toes 1-3
#Osseous destruction of T8-T9
#Splenomegaly
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
#Wounds unstageable
-Unstageable sacral pressure injury
-stage I B/L heel pressure injury
-wound care
-Tylenol 1,000mg TID for pain
- Will also start oxycodone 2.5 mg every 6 hours-Sister does not think he has a true allergy
# DVT prophylaxis-heparin
# DNR Status now
Since his plan to visit this weekend and further evaluate his goals of care. Ideally, the sister would like to transfer him to another facility closer to her in [place].
Anticipated Discharge: > 48 hours
Subjective/Interval History
-
Date of Service: May 03, 2025
Remains obtunded.
Objective Data
-
Labs:
Laboratory Results
05/02/25 05/03/25 05/03/25
22:02 05:37 11:30
WBC 18.0 H
Hgb 8.3 L
Hct 26.0 L
Plt Count 221
APTT 45.2 H 75.3 H Pending
Sodium 134 L
Potassium 3.2 L
Chloride 101
Carbon Dioxide 27
BUN 46 H
Creatinine 1.9 H
Glucose 208 H
Calcium 9.3
Total Bilirubin 0.8
AST 17
ALT 13
Alkaline Phosphatase 310 H
Vital Signs:
Vital Signs
Temp Pulse Resp BP Pulse Ox
98.1 F 79 29 158/54 99
05/03/25 07:58 05/03/25 08:21 05/03/25 08:00 05/03/25 08:21 05/03/25 08:00
I&O
05/02/25 05/03/25 05/04/25
06:59 06:59 06:59
Intake Total 140 / 140 240 / 240
Output Total 0 / 0 325 / 325
Balance 140 / 140 240 / 240 -325 / -325
Review of Systems
-
Unable to obtain full review of systems at this time due to: Dementia and Acuity
Physical Exam
-
Respiratory: Clear to Auscultation
Cardiac: Regular Rhythm and S1/S2
GI: Soft, Nondistended and Normal Bowel Sounds
Musculoskeletal: Other (Right hand edema, no erythema around left IJ site)
[2025-05-03] MEDS: KCL 270 MEQ IV (09:56)
[2025-05-03 10:58] LABS: Reticulocyte Count 5.9 % (0.4-2.8)
[2025-05-03 12:00] LABS: Glucose - Point of Care 221 mg/dl (70-99)
[2025-05-03] MEDS: HEPARIN 25000 UNITS/250 ML IV (12:05)
--- NOTE | 2025-05-03 12:15 | W.PN.NEPH.PH ---
Today's Communication / Plan
-
HD monday
Assessment/Plan
-
59M [facility] resident ESRD MWF pafib Eliquis HTN HLD DM PAD toe amputations CHF Anxiety Depression suspected underlying vascular dementia recent prolonged hospitalization [facility] January 11 to March 17 for intractable back pain catheter
associated infection VR and Klebsiella bacteremia (following which he was discharged to [facility] with alf IV abx Cefipime and Daptomycin to be given with HD- sent by SNF for evaluation AMS, normally AOx3 at baseline, essentially obtunded on
arrival with associate severe hypotension systolic 70s. Improved with IVF bolus,
Impression
ESRD MWF [facility]
Sepsis
A-fib
Dementia/AMS
CVA
History of Klebsiella pneumonia due to catheter in December 2024 at [facility]
right cephalic nonocclusive thrombus, RUE edema
Plan:
HD monday via [facility]
for IRAD [facility] evaluation
possible PEG (Requested by family)
s/p decub wound debridement on 04/30
ALENA concern of vegetation mitral valve
abx per ID
overall prognosis is poor, he will be unlikely to ever leave [place]
-
-
Date of Service: May 03, 2025
CC / HPI / ROS
-
Chief Complaint:
AMS, ESRD
History of Present Illness:
Anemia stable at 8.3
BP stable
sodium at 134
End-stage renal disease on Monday dialysis cath
tolerated HD yesterday
Review of Systems:
no fever
noncommunicative
Labs
-
Labs:
WBC 18.0 10^3/uL (4.8-10.8) H 05/03/25 05:37
RBC 2.80 10^6/uL (4.70-6.10) L 05/03/25 05:37
Hgb 8.3 g/dL (13.0-18.0) L 05/03/25 05:37
Hct 26.0 % (39.0-52.0) L 05/03/25 05:37
Plt Count 221 10^3/uL (130-400) 05/03/25 05:37
Sodium 134 mmol/L (135-145) L 05/03/25 05:37
Potassium 3.2 mmol/L (3.5-5.1) L 05/03/25 05:37
Chloride 101 mmol/L (98-107) 05/03/25 05:37
Carbon Dioxide 27 mmol/L (22-30) 05/03/25 05:37
BUN 46 mg/dl (9-20) H 05/03/25 05:37
Creatinine 1.9 mg/dL (0.7-1.3) H 05/03/25 05:37
eGFR 40.38 05/03/25 05:37
Glucose 208 mg/dl (70-99) H 05/03/25 05:37
Calcium 9.3 mg/dl (8.4-10.2) 05/03/25 05:37
Phosphorus 1.5 mg/dl (2.5-4.5) L 04/20/25 04:29
Albumin 2.3 g/dl (3.5-5.0) L 05/03/25 05:37
Physical Exam
-
Vital Signs:
Vital Signs
Temp Pulse Resp BP Pulse Ox
97.8 F 73 33 165/65 100
05/03/25 11:00 05/03/25 10:00 05/03/25 10:00 05/03/25 10:00 05/03/25 10:53
Cardiovascular:: Regular rate and rhythm
Respiratory:: Bilateral: Coarse
Lung Excursion:: Normal
Abdomen:: Nontender and Soft
Bowel Sounds:: Normal
Extremity Edema:: +2: Right: and None: Left:
[2025-05-03 12:42] LABS: APTT 48.3 Sec (23.4-35.0)
[2025-05-03] MEDS: HEPARIN 5200 UNITS IV (13:09)
--- NOTE | 2025-05-03 14:15 | PTCARENOTE ---
Assumed care of patient at beginning of this shift from previous RN with heparin infusing at 1200 units/hr. PTT checked per protocol with result 48.3; administered 5200 unit bolus and increased infusion to 1400 units/hr as per order. For repeat PTT
at 19:15. Tube feedings maintained: Nepro carbsteady at 50ml/hr with no flush; bottle and tubing changed. Tongue with white coating noted; nystatin given as per ordered instructions. Patient opens eyes intermittently but remains
non-verbal/unresponsive. FMS in use draining dark green with occasional leakage around tube insertion site. See worklist for full assessment, vital signs and interventions.
--- NOTE | 2025-05-03 15:16 | PN.IRAD.UPD ---
Update Note - IRAD
- -
Left IJ TLC resutured at bedside. New,clean,dry dressing placed over site. Patient tolerated procedure well.
[2025-05-03] MEDS: DAKIN'S SOLUTION 0.125% 1/4 STRENGTH 473 ML TOPICAL (15:21)
[2025-05-03] MEDS: SANTYL OINTMENT TOPICAL (15:21)
--- NOTE | 2025-05-03 15:56 | PTCARENOTE ---
IRAD tech up to place sutures to L IJ; area secured on previous shift, no movement from change of shift. IRAD tech placed sutures and new dressing; states confirmed with Dr Araya via text. L IJ with remains with good blood return.
--- NOTE | 2025-05-03 15:58 | PTCARENOTE ---
Sacral wound dressing changed as ordered. Moderate amount of watery brown drainage noted inside of wound, smelled of stool. Dakins cleanse and dakins wet to dry as ordered; wound covered with 2 abd dressings and secured with medipore tape. See
worklist intervention. FMS draining liquid stool, also leaking around insertion site; tubing wrapped in blue pad with abd for skin protection. TT sent to Dr Burks and Dr Roman to make them aware of drainage as WOC RN documented serosanguineous
drainage yesterday.
[2025-05-03 17:43] LABS: Glucose - Point of Care 126 mg/dl (70-99)
[2025-05-03] MEDS: NOVOLOG FLEXPEN-MODERATE RESISTANCE SC (17:50)
[2025-05-03] MEDS: CRESTOR 10 MG TUBE (17:51)
[2025-05-03 20:12] LABS: APTT 68.6 Sec (23.4-35.0)
[2025-05-03] MEDS: HEPARIN 2600 UNITS IV (21:55)
[2025-05-04] VITALS (12 sets, daily range): BP systolic 137–156; BP diastolic 65–89; BMI 18.6
[2025-05-04] MEDS: NOVOLOG FLEXPEN 4 UNITS SC ×4 (00:21→17:45)
[2025-05-04] MEDS: NOVOLOG FLEXPEN-MODERATE RESISTANCE 3 UNITS SC ×2 (00:21→17:45)
[2025-05-04 00:30] LABS: Glucose - Point of Care 203 mg/dl (70-99)
[2025-05-04 01:11] LABS: Glucose - Point of Care 210 mg/dl (70-99)
[2025-05-04 04:21] LABS: Hematocrit 25.8 % (39.0-52.0); Hemoglobin 8.4 g/dL (13.0-18.0); Mean Corp Hgb Conc. 32.6 g/dL (33.0-37.0); Mean Corpuscular Volume 93.1 fL (80.0-94.0); Nucleated Red Blood Cells % 0 % (-); Platelet Count 195 10^3/uL (130-400); Red Cell Dist. Width 25.0 % (11.5-14.5)
[2025-05-04 04:40] LABS: APTT 77.9 Sec (23.4-35.0)
[2025-05-04 04:44] LABS: ALT (SGPT) 13 U/L (0-50); AST (SGOT) 17 U/L (17-59); Albumin 2.1 g/dl (3.5-5.0); Alkaline Phosphatase 322 U/L (38-126); Blood Urea Nitrogen 61 mg/dl (9-20); Calcium 9.3 mg/dl (8.4-10.2); Carbon Dioxide 25 mmol/L (22-30); Chloride 102 mmol/L (98-107); Estimated Creatinine Clearance 30 ml/min; Glucose 164 mg/dl (70-99); Potassium 3.4 mmol/L (3.5-5.1); Sodium 135 mmol/L (135-145); Total Protein 5.0 g/dl (6.3-8.2); eGFR 30.51
[2025-05-04] MEDS: SYNTHROID 75 MCG TUBE (05:04)
[2025-05-04] MEDS: HEPARIN 25000 UNITS/250 ML IV (06:23)
[2025-05-04] MEDS: NOVOLOG FLEXPEN-MODERATE RESISTANCE 1 UNITS SC ×2 (06:27→13:03)
[2025-05-04] MEDS: ZOSYN 50 IV ×3 (06:29→20:29)
[2025-05-04 06:38] LABS: Glucose - Point of Care 163 mg/dl (70-99)
--- NOTE | 2025-05-04 07:27 | W.PN.UPDATE ---
Update Note
Progress Note Update
I saw and evaluated the patient. I reviewed the resident�s note and agree with findings and plan as documented in the resident�s note.
Pt nonverbal.
Gen: NAD, NCAT, appears chronically ill
Eyes: EOMI, PERRLA, no scleral icterus.
Neck: supple.
CV: remains RRR, +S1/S2, no m/r/g.
Resp: remains CTAB, no rales, wheezes, or rhonchi.
Abd: remains +BS, soft, NT, ND
Skin: No rashes.
Neuro: CN 2-12 intact, non-focal.
Psych: calm
04/29/25 16:56 Blood/Venous Blood Culture - Preliminary
No Growth in 4 days- Final report to follow
04/29/25 15:06 Blood/Venous Blood Culture - Preliminary
No Growth in 4 days- Final report to follow
04/30/25 13:16 Sacral Wound Culture - Preliminary
Enterococcus faecium - VRE
Klebsiella aerogenes
Proteus vulgaris
04/30/25 13:16 Sacral Gram Stain - Preliminary
04/30/25 13:16 Sacral Anaerobic Culture - Preliminary
Culture pending. Anaerobic cultures are examined after 3
days incubation. Additional information to follow.
04/28/25 03:23 Blood/Venous Blood Culture - Final
No Growth - Final Report
04/28/25 03:18 Blood/Venous Blood Culture - Preliminary
Klebsiella aerogenes
04/28/25 03:18 Blood/Venous Gram Stain - Preliminary
04/23/25 14:38 Blood/Venous Blood Culture - Final
Gram negative bacilli
04/23/25 14:38 Blood/Venous Gram Stain - Final
04/23/25 18:00 Sacral Wound Culture - Final
Proteus vulgaris
Klebsiella aerogenes
Enterococcus faecalis - VRE
Streptococcus species
04/23/25 18:00 Sacral Gram Stain - Final
04/26/25 11:09 Blood/Venous Blood Culture - Preliminary
Klebsiella aerogenes
04/26/25 11:09 Blood/Venous Gram Stain - Preliminary
04/26/25 10:15 Blood/Venous Blood Culture - Preliminary
Proteus vulgaris
Klebsiella aerogenes
04/26/25 10:15 Blood/Venous Gram Stain - Preliminary
04/29/25 04:10 Feces/Stool C. difficile GDH Antigen & Toxins - Final
Negative for toxigenic C.difficile
04/23/25 18:00 Blood/Venous Blood Culture - Final
No Growth - Final Report
04/10/25 12:30 Blood/Venous Blood Culture - Final
No Growth - Final Report
04/10/25 10:12 Blood/Venous Blood Culture - Final
No Growth - Final Report
04/13/25 14:55 Feces/Stool C. difficile GDH Antigen & Toxins - Final
Negative for toxigenic C.difficile
04/11/25 04:12 Nose MRSA Screen - Final
Staph aureus MRSA
MRI brain 04/13/25: Small foci of restricted diffusion involving the bilateral frontoparietal white matter, the left frontal white matter more anteriorly in the right basal ganglia consistent with acute/subacute infarctions. These may be embolic in
nature given the multivessel territory. Mild atrophy with sequelae of moderate chronic small vessel ischemic disease. Prominent blooming artifact along the left paramedian parietal lobe which is likely sequelae of prior hemorrhage/hematoma.
Acute/subacute CVAs :
-MRI brain above, likely embolic in nature
-Heparin gtt
Acute metabolic encephalopathy:
-Multifactorial due to hypotension, polypharmacy, hypovolemia, acute/subacute CVAs, and likely vascular dementia
-started on Synthroid, endocrine saw in c/s
-EEG without seizure activity
-Cont to hold gabapentin/Haldol
-Dobhoff placed on 04/18/25 for feeds, replaced again due to blockage
-As pt's sister and daughter wants to continue with PEG, GI consulted for PEG placement, timing TBD by GI, likely 05/05/25
h/o VRE and Klebsiella bacteremia (JOINER):
-admitted on daptomycin/cefepime and transitioned to IV Zosyn per ID. Then was discontinued prior as per ID as d/c records indicate completion of antibiotics at [place] and unclear as to why they were started at [facility].
-Klebsiella and Proteus vulgaris bacteremia noted on blood culture 04/26/2025. Repeat cultures from 04/28/2025 with Klebsiella. Currently Zosyn. Likely source is sacral decubitus ulcer which has been debrided
-ALENA 04/30/25 showed small mobile MV density, cannot exclude vegetation
-Will need to be treated as endocarditis with 6 weeks abx
-ID following
Pancytopenia:
-anemia likely secondary to chronic kidney disease
-BMBx and MM work up was done at [place] revealing no BM or genetic mutations
-Heme/onc appreciated for possible eval for TTP, no TTP as no schistocytes and normal LDH, antibody panels for other causes of hypercoagulable states pending
-s/p 2U pRBCs this admission
-Thrombocytopenia and leukopenia have resolved
Other problems:
Lupus anticoagulant positive likely contributing to hypercoagulable state. Heparin bridge restarted. Bridged to warfarin once PEG tube is placed
Hypothyroidism: cont Synthroid
Elevated troponin, nonischemic myocardial injury and due to underlying ESRD
Chronic HFpEF: cont BB
ESRD: cont HD M/W/F, renal following
PAF: Cont BB/heparin drip
Anxiety/depression: seen by psych
? Metastatic disease: Hospital records from [place] revealed concerns for metastatic disease after MRI of spine done. Some proctocolitis of bowels noted on imaging as well. CT A/P revealed no obvious metastatic disease
Diarrhea: C diff NEG
R greater trochanteric femur fracture: No surgical intervention required per ortho.
Essential HTN: BB with holding parameters
HLD: Cont statin
Hypokalemia, replete PRN
Hypophosphatemia
Hyponatremia, resolved
Bedbound since November 2024 with intermittent confusion at baseline
DM2: SSI/accuchecks
Likely vascular dementia
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
Osseous destruction of T8-T9
Splenomegaly
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
Wounds:
-Stage IV sacral pressure injury, wound debridement done by surgeon on 04/30/25: Necrotic skin subcutaneous tissue muscle and fascia debrided, There was also 6cm space in the ischial area with malodorous pus. Exposed sacral bone.
-stage I B/L heel pressure injury
-wound care and change of position.
-Tylenol 1,000mg TID for pain
-Oxycodone PRN
Overall care is futile.
DNR/Heparin gtt
[2025-05-04] MEDS: ZINC 50 MG TUBE (08:26)
[2025-05-04] MEDS: TYLENOL 1000 MG TUBE ×3 (08:26→20:28)
[2025-05-04] MEDS: LOPRESSOR 50 MG TUBE ×2 (08:26→20:28)
[2025-05-04] MEDS: MYCOSTATIN ORAL SUSPENSION 5 ML PO ×4 (08:27→20:29)
[2025-05-04] MEDS: VITAMIN B1 100 MG TUBE (08:27)
[2025-05-04] MEDS: NSS (PRESERVATIVE FREE) 10 ML IV (08:27)
[2025-05-04] MEDS: DESENEX/MITRAZOL/ZEASORB 1 APPLIC TOPICAL ×2 (08:27→20:29)
[2025-05-04] MEDS: PROTONIX IV 40 MG IV (08:27)
[2025-05-04] MEDS: DAILY VITAMIN/CENTRUM 15 ML TUBE (08:27)
[2025-05-04] MEDS: SANTYL OINTMENT TOPICAL (08:28)
--- NOTE | 2025-05-04 08:45 | W.PN.HOSP.TC ---
Today's Communication/Plan
-
Sister supposed to come this weekend to discuss PEG vs hospice
Wound care
Cont zosyn
Cont heparin
cont tube feeds
Replete K
Assessment / Plan
Assessment / Plan
59 y/o patient had a prolonged hospitalization at [facility] January 11, 2025 to March 17, 2025 for intractable back pain, catheter associated infection, Klebsiella bacteremia. On long-term IV antibiotics cefepime and daptomycin with HD here
for acute change in mental status. Patient was obtunded on arrival and hypotensive. Baseline intermittently confused and bedbound since November 2024 per POA. Able to talk to sister on the phone at baseline.
CT Head: No acute intracranial abnormality noted.There are mild/moderate periventricular and subcortical white matter hypodensities which are nonspecific, however likely sequelae of chronic small vessel ischemic disease.
EEG 04/11/2025: Diffuse cortical dysfunction without focal abnormality. No seizures activity.
Echo 04/11/2025: TDS. EF 60-65%, no RWMA.
MRI brain 04/13/25: There are small foci of restricted diffusion involving the bilateral frontoparietal white matter, the left frontal white matter more anteriorly in the right basal ganglia consistent with acute/subacute infarctions. These may be
embolic in nature given the multivessel territory. Mild atrophy with sequelae of moderate chronic small vessel ischemic disease. Prominent blooming artifact along the left paramedian parietal lobe which is likely sequelae of prior
hemorrhage/hematoma.
CT A/P w/IV contrast 04/15/25: Limited exam, anasarca, splenomegaly, atrophic bilateral kidneys, proctitis indeterminate etiology, diffuse wall thickening of the urinary bladder outlet obstruction without source neurogenic bladder. Small focus of
gas in the bladder. Recent fracture of greater trochanter of right femur. Osseous destructive process of the T8-T9. Abnormal lucent and sclerotic appearance of the bones likely renal osteodystrophy
R Hip x-ray 04/17/25: Findings suggesting subacute fracture of the right greater trochanter.
CXR 04/23: Mild pulmonary vascular congestion. Mild hazy opacity in the right lung base, which could represent atelectasis or pneumonia.
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 However, if there is no history of clot in this region, early thrombus cannot be excluded. Clinical correlation recommended
#Left IJ placement
-One stitch noted to be out - pulled out 2' per night team - repeat x-ray in good place - IRAD aware - replaced stitch yesterday
#Acute/subacute CVAs :
-MRI brain above, likely embolic in nature
# Mitral valve vegetation
-Noted on ALENA on 04/30
-Could be source of embolic stroke
-6 week course of antibiotics per ID - currently on zosyn
# Unstageable necrotic sacral wound -debridement on 04/30
- Post op day 4 sacral debridement -
- Wound culture revealed klebsiella, proteus and enterococcus species
- No granulation tissue per wound care - worsening per nursing - rectal tube placed to protect wound from ongoing diarrhea - poor prognosis
#Right hand swelling
- Increased from before. Known clot in right hand. Warm compress - improving
#Acute metabolic encephalopathy
-Multifactorial due to hypotension, polypharmacy, hypovolemia, (possibly) acute/subacute CVAs, and likely vascular dementia
-started on IV Synthroid, endocrine saw in c/s
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
-EEG without seizure activity
-Cont to hold gabapentin/Haldol
-Dobhoff placed on 04/18/25 for feeds - replaced 04/28/25 because it got clogged - length adjusted from 80 to 65 per previous as night team was concerned with length - repeat x-ray good position
-As pt's sister wants to continue aggressive care, GI consulted for PEG placement - pressure wound from dobhoff noted - If family continues to want aggressive care, PEG likely on monday
#Febrile
#H/O VRE and Klebsiella bacteremia:
-admitted on daptomycin/cefepime and transitioned to IV Zosyn per ID. Now off abx as per ID as d/c records indicate completion of antibiotics at [place] and unclear as to why they were started at [facility]. Cultures were negative and pt was
afebrile.
-04/23/25AM temp 101.2 F. Septic w/u with BCxs (which are NGTD) and CXR (as above). Abx ordered but stopped by ID.
-Zosyn started 04/26/2025 to cover for positive blood cultures with klebsiella
-Infectious disease following
#Pancytopenia:
-anemia likely secondary to chronic kidney disease
-BMBx and MM work up was done at [place] revealing no BM or genetic mutations
-Heme/onc appreciated for possible eval for TTP, no TTP as no schistocytes and normal LDH
-Status post 2 units of PRBCs this admission
Thrombocytopenia and leukopenia resolved
#Anxiety/depression
-Psychiatric valuation appreciated. BuSpar discontinued.
-Taper off lexapro per psych.
#Lupus anticoagulant positive likely contributing to hypercoagulable state. Heparin bridge started. Bridged to warfarin once PEG tube is placed.
#Hypothyroidism - repeat TSH 14.4 and free T4 0.72. Okay to transition from IV levothyroxine 75 to PO 75 per endocrinology
#Elevated troponin, nonischemic myocardial injury and due to underlying ESRD
#Chronic HFpEF: cont BB
#ESRD: cont HD M/W/F, renal following
#PAF: Cont BB/heparin drip
#? Metastatic disease: Hospital records from [place] revealed concerns for metastatic disease after MRI of spine done. Some proctocolitis of bowels noted on imaging as well. CT A/P revealed no obvious metastatic disease
#Diarrhea: C diff NEG 04/13, c.diff (-) 04/29
#R greater trochanteric femur fracture: No surgical intervention required per ortho.
#Essential HTN: BB with holding parameters
#HLD: Cont statin
#Hypokalemia, replete prn
#Hypophosphatemia, replete
#Bedbound since November 2024 with intermittent confusion at baseline
#DM2: SSI/accuchecks
#Concern for vascular dementia
#Amputation of the left toes 1-3
#Osseous destruction of T8-T9
#Splenomegaly
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
#Wounds unstageable
-Unstageable sacral pressure injury
-stage I B/L heel pressure injury
-wound care
-Tylenol 1,000mg TID for pain
- Will also start oxycodone 2.5 mg every 6 hours-Sister does not think he has a true allergy
# DVT prophylaxis-heparin
# DNR Status now
Since his plan to visit this weekend and further evaluate his goals of care. Ideally, the sister would like to transfer him to another facility closer to her in [place]. Sister did not visit yesterday. Attempted to call this am with no medicinal plant picker.
Will hopefully be able to speak to her if she comes to the hospital today. Ethics committee would like to organize a zoom call with the daughters.
Anticipated Discharge: > 48 hours
Subjective/Interval History
-
Date of Service: May 04, 2025
Remains obtunded. Grimacing a lot. Per nursing, sacral wound getting worse with dark foul-smelling discharge.
Objective Data
-
Labs:
Laboratory Results
05/04/25 05/04/25
04:09 10:00
WBC 17.5 H
Hgb 8.4 L
Hct 25.8 L
Plt Count 195
APTT 77.9 H Pending
Sodium 135
Potassium 3.4 L
Chloride 102
Carbon Dioxide 25
BUN 61 H
Creatinine 2.4 H
Glucose 164 H
Calcium 9.3
Total Bilirubin 0.6
AST 17
ALT 13
Alkaline Phosphatase 322 H
Vital Signs:
Vital Signs
Temp Pulse Resp BP Pulse Ox
98.0 F 74 23 137/65 100
05/04/25 07:20 05/04/25 08:26 05/04/25 08:07 05/04/25 08:26 05/04/25 08:07
I&O
05/03/25 05/04/25 05/05/25
06:59 06:59 06:59
Intake Total 240 / 240 640 / 640
Output Total 0 / 0 325 / 325
Balance 240 / 240 315 / 315
Review of Systems
-
Unable to obtain full review of systems at this time due to: Dementia and Acuity
Physical Exam
-
General: Appears in Distress, Pain, Appears Chronically Ill and Cachectic
Respiratory: Clear to Auscultation
Cardiac: Regular Rhythm and S1/S2
GI: Soft, Nondistended and Normal Bowel Sounds
Musculoskeletal: Other (Right hand swelling improved from prior)
[2025-05-04] MEDS: KCL 160 MEQ IV (10:55)
--- NOTE | 2025-05-04 11:14 | W.PN.NEPH.PH ---
Today's Communication / Plan
-
HD tomorrow
Assessment/Plan
-
59M [facility] resident ESRD MWF roxanne Eliquis HTN HLD DM PAD toe amputations CHF Anxiety Depression suspected underlying vascular dementia recent prolonged hospitalization [facility] January 11 to March 17 for intractable back pain catheter
associated infection VR and Klebsiella bacteremia (following which he was discharged to [facility] with fci IV abx Cefipime and Daptomycin to be given with HD- sent by SNF for evaluation AMS, normally AOx3 at baseline, essentially obtunded on
arrival with associate severe hypotension systolic 70s. Improved with IVF bolus,
Impression
ESRD MWF [facility]
Sepsis
A-fib
Dementia/AMS
CVA
History of Klebsiella pneumonia due to catheter in December 2024 at [facility]
right cephalic nonocclusive thrombus, RUE edema
Plan:
HD monday via [facility]
possible PEG (Requested by family)
s/p decub wound debridement on 04/30
ALENA concern of vegetation mitral valve
abx per ID
no FWF
overall prognosis is poor, he will be unlikely to ever leave [place]
-
-
Date of Service: May 04, 2025
CC / HPI / ROS
-
Chief Complaint:
AMS, ESRD
History of Present Illness:
Anemia stable
BP stable
End-stage renal disease on Monday dialysis cath
tolerated HD monday
Review of Systems:
no fever
noncommunicative
Labs
-
Labs:
WBC 17.5 10^3/uL (4.8-10.8) H 05/04/25 04:09
RBC 2.77 10^6/uL (4.70-6.10) L 05/04/25 04:09
Hgb 8.4 g/dL (13.0-18.0) L 05/04/25 04:09
Hct 25.8 % (39.0-52.0) L 05/04/25 04:09
Plt Count 195 10^3/uL (130-400) 05/04/25 04:09
Sodium 135 mmol/L (135-145) 05/04/25 04:09
Potassium 3.4 mmol/L (3.5-5.1) L 05/04/25 04:09
Chloride 102 mmol/L (98-107) 05/04/25 04:09
Carbon Dioxide 25 mmol/L (22-30) 05/04/25 04:09
BUN 61 mg/dl (9-20) H 05/04/25 04:09
Creatinine 2.4 mg/dL (0.7-1.3) H 05/04/25 04:09
eGFR 30.51 05/04/25 04:09
Glucose 164 mg/dl (70-99) H 05/04/25 04:09
Calcium 9.3 mg/dl (8.4-10.2) 05/04/25 04:09
Phosphorus 1.5 mg/dl (2.5-4.5) L 04/20/25 04:29
Albumin 2.1 g/dl (3.5-5.0) L 05/04/25 04:09
Physical Exam
-
Vital Signs:
Vital Signs
Temp Pulse Resp BP Pulse Ox
98.3 F 69 16 145/66 99
05/04/25 11:04 05/04/25 10:00 05/04/25 10:00 05/04/25 10:00 05/04/25 10:19
Cardiovascular:: Regular rate and rhythm
Respiratory:: Bilateral: Coarse
Lung Excursion:: Normal
Abdomen:: Nontender and Soft
Bowel Sounds:: Normal
Extremity Edema:: None: Bilateral:
[2025-05-04 11:32] LABS: APTT 76.8 Sec (23.4-35.0)
--- NOTE | 2025-05-04 12:11 | PTCARENOTE ---
Assumed care of patient at beginning of this shift from shift leader RN with heparin infusing at 1500 units/hr; repeat PTT this morning was therapeutic at 76.8. Patient non-verbal; occasionally opens eyes and will grimace to pain. FMS with liquid
stool, also continues to leak around insertion site. TF infusing at 50ml/hr; dobhoff remains at 70mm leann. See worklist for full assessment, intervention and vital signs.
--- NOTE | 2025-05-04 12:17 | PTCARENOTE ---
Patient's sister, Kevin, currently at the bedside. TT sent to Dr Roman, Dr Ashley and Dr Burks; Dr Ashley replied that she would be up to speak with patient's sister. Sister stated she will be here until '2-eddie;' Dr Ashley made aware.
[2025-05-04 12:39] LABS: Glucose - Point of Care 153 mg/dl (70-99)
[2025-05-04] MEDS: DAKIN'S SOLUTION 0.125% 1/4 STRENGTH 473 ML TOPICAL (13:02)
--- NOTE | 2025-05-04 13:24 | PTCARENOTE ---
Patient's sister present for wound care; she was able to see the area from standing beside the bed. During wound care, this nurse noted a small open area on the skin, immediate distal to the wound; appears connected to original sacral wound inside.
TT sent to Dr Roman, Dr Ashlye and Dr Burks. Unsure if patient's sister observed that area. Wound care completed as per order. Dr Ashley up to see patient and sister.
--- NOTE | 2025-05-04 14:57 | CHAP ---
Marcelino was sleeping, minimally responsive. His sister Geovanni was at his side; she shared background and asked if a care services manager could come. This general maintenance technician explained that our priests come for end of life, but that if one of them was here and available, we
would make the request. Emotional and spiritual support provided, through presence, dialogue and prayer. Prayer blanket also provided, along with assurance of our on-going availability.
--- NOTE | 2025-05-04 15:25 | W.PN.UPDATE ---
Update Note
Progress Note Update
Spoke to sister at bedside. She was present when the nurse changed his sacral wounds. I asked her if she could verbalize to me her understanding of her brothers current health condition and mcc prognosis. She explained the situation for me
well. She stated this is a very hard decision for her because just prior to his hospitalization here he stated he wanted to be full code and wanted to work towards full recovery prior to how he was prior to his hospitalization at [facility]. She understand that is highly improbable now, but was hopeful in the beginning when he would still respond in short phrases to herself or nursing staff.
She was unable to reach his daughters today and is thus unable to make a decision about the PEG tube. I tried to call and was also unable to reach them. She asked if we could keep the dobhoff in and decide tomorrow for OR on Monday. She stated she
doesn't want him to get the PEG tube if he will go to hospice. We will try to get ahold of the daughters tomorrow for a final decision.
Daughters numbers:
Kamryn [phone]
Esha [phone]
--- NOTE | 2025-05-04 16:00 | W.PN.UPDATE ---
Update Note
Progress Note Update
As per hospitalist team, sister does not want to get a PEG if pt goes to hospice and she is now considering it hospice more but daughters need to be involved and they are trying to get in touch with them. Team will update us once family are all in
agreement.
[2025-05-04] MEDS: CRESTOR 10 MG TUBE (17:00)
[2025-05-04 17:51] LABS: Glucose - Point of Care 220 mg/dl (70-99)
[2025-05-05] VITALS (29 sets, daily range): BP systolic 109–161; BP diastolic 53–85; BMI 19.6
[2025-05-05 00:09] LABS: Glucose - Point of Care 192 mg/dl (70-99)
[2025-05-05] MEDS: NOVOLOG FLEXPEN-MODERATE RESISTANCE 1 UNITS SC (01:20)
[2025-05-05] MEDS: NOVOLOG FLEXPEN 4 UNITS SC ×3 (01:21→13:22)
--- NOTE | 2025-05-05 02:21 | PTCARENOTE ---
Pt nonverbal, responsive to tactile and painful stimuli. No purposeful movements. NSR on monitor. +2 to +3 pitting edema in RUE. Lungs diminished on RA. Shallow breaths, tachypneic. Anuric, FMS in place. Pt with moderate amount of stool leaking
around FMS, sacral dressing removed, wound cleaned, repacked and redressed. FMS irrigated. Nepro w/ carbsteady running through L nare DHT. No residual, PM meds crushed and given through tube. Accucheck 192. 5 units novolog given (4 units standing
order, 1 unit based on SS). Q2T. Pt resting comfortably in bed at this time. VSS. Care ongoing.
[2025-05-05] MEDS: NOVOLOG FLEXPEN-MODERATE RESISTANCE SC ×3 (05:09→18:37)
[2025-05-05] MEDS: SYNTHROID 75 MCG TUBE (05:10)
[2025-05-05] MEDS: ZOSYN 50 IV ×3 (05:10→21:30)
[2025-05-05 05:30] LABS: Glucose - Point of Care 137 mg/dl (70-99)
[2025-05-05 06:23] LABS: Hematocrit 25.5 % (39.0-52.0); Hemoglobin 8.5 g/dL (13.0-18.0); Mean Corp Hgb Conc. 33.3 g/dL (33.0-37.0); Mean Corpuscular Volume 93.8 fL (80.0-94.0); Platelet Count 193 10^3/uL (130-400); Red Cell Dist. Width 25.7 % (11.5-14.5)
[2025-05-05] MEDS: HEPARIN 25000 UNITS/250 ML IV ×2 (06:34→23:29)
[2025-05-05 06:41] LABS: APTT 52.3 Sec (23.4-35.0)
[2025-05-05 06:45] LABS: ALT (SGPT) 12 U/L (0-50); AST (SGOT) 14 U/L (17-59); Albumin 2.1 g/dl (3.5-5.0); Alkaline Phosphatase 289 U/L (38-126); Blood Urea Nitrogen 77 mg/dl (9-20); Calcium 9.9 mg/dl (8.4-10.2); Carbon Dioxide 25 mmol/L (22-30); Chloride 102 mmol/L (98-107); Estimated Creatinine Clearance 25 ml/min; Glucose 134 mg/dl (70-99); Potassium 3.6 mmol/L (3.5-5.1); Sodium 136 mmol/L (135-145); Total Protein 4.9 g/dl (6.3-8.2); eGFR 23.34
[2025-05-05] MEDS: HEPARIN 5200 UNITS IV (07:30)
--- NOTE | 2025-05-05 08:20 | W.PN.HOSP.TC ---
Today's Communication/Plan
-
HD
Discuss PEG with sister and daughters
Assessment / Plan
Assessment / Plan
59 y/o patient had a prolonged hospitalization at [facility] January 11, 2025 to March 17, 2025 for intractable back pain, catheter associated infection, Klebsiella bacteremia. On long-term IV antibiotics cefepime and daptomycin with HD here
for acute change in mental status. Patient was obtunded on arrival and hypotensive. Baseline intermittently confused and bedbound since November 2024 per POA. Able to talk to sister on the phone at baseline.
CT Head: No acute intracranial abnormality noted.There are mild/moderate periventricular and subcortical white matter hypodensities which are nonspecific, however likely sequelae of chronic small vessel ischemic disease.
EEG 04/11/2025: Diffuse cortical dysfunction without focal abnormality. No seizures activity.
Echo 04/11/2025: TDS. EF 60-65%, no RWMA.
MRI brain 04/13/25: There are small foci of restricted diffusion involving the bilateral frontoparietal white matter, the left frontal white matter more anteriorly in the right basal ganglia consistent with acute/subacute infarctions. These may be
embolic in nature given the multivessel territory. Mild atrophy with sequelae of moderate chronic small vessel ischemic disease. Prominent blooming artifact along the left paramedian parietal lobe which is likely sequelae of prior
hemorrhage/hematoma.
CT A/P w/IV contrast 04/15/25: Limited exam, anasarca, splenomegaly, atrophic bilateral kidneys, proctitis indeterminate etiology, diffuse wall thickening of the urinary bladder outlet obstruction without source neurogenic bladder. Small focus of
gas in the bladder. Recent fracture of greater trochanter of right femur. Osseous destructive process of the T8-T9. Abnormal lucent and sclerotic appearance of the bones likely renal osteodystrophy
R Hip x-ray 04/17/25: Findings suggesting subacute fracture of the right greater trochanter.
CXR 04/23: Mild pulmonary vascular congestion. Mild hazy opacity in the right lung base, which could represent atelectasis or pneumonia.
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 However, if there is no history of clot in this region, early thrombus cannot be excluded. Clinical correlation recommended
#Acute/subacute CVAs :
-MRI brain above, likely embolic in nature
# Mitral valve vegetation
-Noted on ALENA on 04/30
-Could be source of embolic stroke
-6 week course of antibiotics per ID - currently on zosyn
# Unstageable necrotic sacral wound -debridement on 04/30
- Post op day 4 sacral debridement -
- Wound culture revealed klebsiella, proteus and enterococcus species
- No granulation tissue per wound care - worsening per nursing - rectal tube placed to protect wound from ongoing diarrhea - poor prognosis
#Right hand swelling
- Increased from before. Known clot in right hand. Warm compress - improving
#Acute metabolic encephalopathy
-Multifactorial due to hypotension, polypharmacy, hypovolemia, (possibly) acute/subacute CVAs, and likely vascular dementia
-started on IV Synthroid, endocrine saw in c/s
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
-EEG without seizure activity
-Cont to hold gabapentin/Haldol
-Dobhoff placed on 04/18/25 for feeds - replaced 04/28/25 because it got clogged - length adjusted from 80 to 65 per previous as night team was concerned with length - repeat x-ray good position
-As pt's sister wants to continue aggressive care, GI consulted for PEG placement - pressure wound from dobhoff noted -Discuss PEG with family today. Possible PEG Monday.
#Febrile
#H/O VRE and Klebsiella bacteremia:
-admitted on daptomycin/cefepime and transitioned to IV Zosyn per ID. Now off abx as per ID as d/c records indicate completion of antibiotics at [place] and unclear as to why they were started at [facility]. Cultures were negative and pt was
afebrile.
-04/23/25AM temp 101.2 F. Septic w/u with BCxs (which are NGTD) and CXR (as above). Abx ordered but stopped by ID.
-Zosyn started 04/26/2025 to cover for positive blood cultures with klebsiella
-Infectious disease following
#Pancytopenia:
-anemia likely secondary to chronic kidney disease
-BMBx and MM work up was done at [place] revealing no BM or genetic mutations
-Heme/onc appreciated for possible eval for TTP, no TTP as no schistocytes and normal LDH
-Status post 2 units of PRBCs this admission
Thrombocytopenia and leukopenia resolved
#Anxiety/depression
-Psychiatric valuation appreciated. BuSpar discontinued.
-Taper off lexapro per psych.
#Lupus anticoagulant positive likely contributing to hypercoagulable state. Heparin bridge started. Bridged to warfarin once PEG tube is placed.
#Hypothyroidism - repeat TSH 14.4 and free T4 0.72. Okay to transition from IV levothyroxine 75 to PO 75 per endocrinology
#Elevated troponin, nonischemic myocardial injury and due to underlying ESRD
#Chronic HFpEF: cont BB
#ESRD: cont HD M/W/F, renal following
#PAF: Cont BB/heparin drip
#? Metastatic disease: Hospital records from [place] revealed concerns for metastatic disease after MRI of spine done. Some proctocolitis of bowels noted on imaging as well. CT A/P revealed no obvious metastatic disease
#Diarrhea: C diff NEG 04/13, c.diff (-) 04/29
#R greater trochanteric femur fracture: No surgical intervention required per ortho.
#Essential HTN: BB with holding parameters
#HLD: Cont statin
#Hypokalemia, replete prn
#Hypophosphatemia, replete
#Bedbound since November 2024 with intermittent confusion at baseline
#DM2: SSI/accuchecks
#Concern for vascular dementia
#Amputation of the left toes 1-3
#Osseous destruction of T8-T9
#Splenomegaly
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
#Wounds unstageable
-Unstageable sacral pressure injury
-stage I B/L heel pressure injury
-wound care
-Tylenol 1,000mg TID for pain
- Will also start oxycodone 2.5 mg every 6 hours-Sister does not think he has a true allergy
# DVT prophylaxis-heparin
# DNR Status now
Since his plan to visit this weekend and further evaluate his goals of care. Ideally, the sister would like to transfer him to another facility closer to her in [place]. Spoke to sister yesterday and she seems to be leaning towards hospice. Plan
to call sister and daughters today to discuss PEG.
Anticipated Discharge: > 48 hours
Subjective/Interval History
-
Date of Service: May 05, 2025
Remains obtunded.
Objective Data
-
Labs:
Laboratory Results
05/05/25 05/05/25
05:35 13:30
WBC 14.7 H
Hgb 8.5 L
Hct 25.5 L
Plt Count 193
APTT 52.3 H Pending
Sodium 136
Potassium 3.6
Chloride 102
Carbon Dioxide 25
BUN 77 H
Creatinine 3.0 H
Glucose 134 H
Calcium 9.9
Total Bilirubin 0.6
AST 14 L
ALT 12
Alkaline Phosphatase 289 H
Vital Signs:
Vital Signs
Temp Pulse Resp BP Pulse Ox
97.4 F 73 19 115/58 100
05/05/25 08:11 05/05/25 08:00 05/05/25 08:00 05/05/25 08:00 05/05/25 08:00
I&O
05/04/25 05/05/25 05/06/25
06:59 06:59 06:59
Intake Total 640 / 640
Output Total 325 / 325
Balance 315 / 315
Review of Systems
-
Unable to obtain full review of systems at this time due to: Dementia and Acuity
Physical Exam
-
General: Appears Chronically Ill and Cachectic
Respiratory: Clear to Auscultation
Cardiac: Regular Rhythm and S1/S2
GI: Soft, Nondistended and Normal Bowel Sounds
Musculoskeletal: No Cyanosis and Other (Increase RUE edema > left. Missing right toes )
[2025-05-05 08:44] LABS: Nucleated Red Blood Cells % 0 % (-)
[2025-05-05] MEDS: NSS (PRESERVATIVE FREE) 10 ML IV (09:18)
[2025-05-05] MEDS: PROTONIX IV 40 MG IV (09:18)
[2025-05-05] MEDS: DAILY VITAMIN/CENTRUM 15 ML TUBE (09:18)
[2025-05-05] MEDS: SANTYL OINTMENT 1 APPLIC TOPICAL (09:18)
[2025-05-05] MEDS: MYCOSTATIN ORAL SUSPENSION 5 ML PO ×4 (09:19→21:30)
[2025-05-05] MEDS: VITAMIN B1 100 MG TUBE (09:19)
[2025-05-05] MEDS: ZINC 50 MG TUBE (09:19)
[2025-05-05] MEDS: TYLENOL 1000 MG TUBE (09:19)
[2025-05-05] MEDS: LOPRESSOR 50 MG TUBE (09:23)
[2025-05-05] MEDS: DAKIN'S SOLUTION 0.125% 1/4 STRENGTH 1 ML TOPICAL (09:23)
[2025-05-05] MEDS: DESENEX/MITRAZOL/ZEASORB 1 APPLIC TOPICAL ×2 (09:24→21:30)
--- NOTE | 2025-05-05 10:27 | W.PN.ID1 ---
Date of Service
Date of Service: May 05, 2025
Today's Communication
Continue Zosyn. Add daptomycin, dosed for HD.
Assessment / Plan
Bacteremia
- 04/23 blood cx's blood culture with gram-negative rods, but could not speciate.
- 04/23 CXR: mild opacity RLL atelectasis vs PNA
- 04/26/25 blood cx's with Klebsiella aerogenes and Proteus vulgaris. These organisms were also recovered from the unstageable sacral decubiti.
-04/23 Sacral wound polymicrobial growth, including Proteus, Klebsiella, VRE (amp resistant) and an additional strep species
- Potential sources of bacteremia include sacral wound, HD line.
Fever - intermittent
Leukocytosis
Suspected mitral valve vegetation
- Given recent bacteremia, there is high probability that if truly a vegetation it is infected.
Encephalopathy; ongoing
Hx VRE / Klebsiella infection 2* HD cath CLABSI (at OSH)
- Previously on dapto / cefepime when arrived from nursing facility.
- Completed course of therapy
Unstageable sacral wound
Penile dermal necrosis
Vascular dementia
P A-fib (on Eliquis)
ESRD�HD (MWF)
DM
PAD
CHF
Anxiety/depression
Recommendations:
Continue Zosyn (d#10). Given findings on echocardiogram will likely need a 6-week course of antibiotics. Possible transition to ertapenem once transferred back to group home.
Most recent sacral cultures from 04/30 now reveal presence of VRE (amp resistant). Will reinitiate a short course of daptomycin. Follow CK while on dapto. Hold statin.
Continue local care to sacral wound. Progressive necrosis noted. See photo below...
Overall prognosis at this point appears exceedingly poor to nonexistent.
Patient with [id number] wound healing capacity given underlying cachexia, low albumin and protein stores. Progressive dermal gangrene of sacral area is evidence of this.
Patient is hospice appropriate, as there is no likelihood of recovery of any quality of life.
Ongoing aggressive care is increasingly becoming futile, and serves only to prolong suffering, and eventual passing.
����������������������������������������������������������
Chief Complaint
-: Fever, Bacteremia and Other (Change in mental status, failure to thrive)
Subjective / Review of Systems
Review of Systems: No Fever
Vital Signs / Physical Exam
Vital Signs
Vital Signs
Temp Pulse Resp BP Pulse Ox
97.4 F 75 19 115/58 100
05/05/25 08:11 05/05/25 09:23 05/05/25 08:00 05/05/25 09:23 05/05/25 08:00
Physical Exam
Constitutional: Acutely Ill, Chronically Ill and Cachetic
Head: Other (Temporal wasting. Nasal Dobbhoff in place.)
Eyes: Sclera Anicteric
Cardiovascular: S1/S2; Negative S3/S4
Pulmonary: Non Labored; Negative Wheezes
Gastrointestinal: Soft, Non Distended and Other (FMS in place.)
Extremities: Negative Edema, Cyanosis or Erythema
Wound: Other (Sacral wound dressed.)
Neurological: Awake and Other (Nonverbal)
Psychological: Calm
Lines: CVP (Left IJ) and HD Cath (Left ACW)
Objective Data
Lab Data
Lab Results
05/05/25 05:35
05/05/25 05:35
PT 19.6 Sec (11.4-14.6) H 04/24/25 05:43
INR 1.60 04/24/25 05:43
APTT 52.3 Sec (23.4-35.0) H 05/05/25 05:35
Estimated Creat Clear 25 ml/min 05/05/25 05:35
Lactic Acid Cancelled 04/10/25 14:15
Total Bilirubin 0.6 mg/dl (0.2-1.3) 05/05/25 05:35
AST 14 U/L (17-59) L 05/05/25 05:35
ALT 12 U/L (0-50) 05/05/25 05:35
Alkaline Phosphatase 289 U/L (38-126) H 05/05/25 05:35
Most recent labs reviewed.
Micro Results:
04/29/25 16:56 Blood Culture - Final
Blood/Venous No Growth - Final Report
04/29/25 15:06 Blood Culture - Final
Blood/Venous No Growth - Final Report
04/30/25 13:16 Anaerobic Culture - Preliminary
Sacral Culture pending. Anaerobic cultures are examined after 3
days incubation. Additional information to follow.
04/30/25 13:16 Wound Culture - Preliminary
Sacral Enterococcus faecium - VRE
Klebsiella aerogenes
Proteus vulgaris
Gram Stain - Preliminary
04/28/25 03:23 Blood Culture - Final
Blood/Venous No Growth - Final Report
04/28/25 03:18 Blood Culture - Preliminary
Blood/Venous Klebsiella aerogenes
Gram Stain - Preliminary
04/23/25 14:38 Blood Culture - Final
Blood/Venous Gram negative bacilli
Gram Stain - Final
04/23/25 18:00 Wound Culture - Final
Sacral Proteus vulgaris
Klebsiella aerogenes
Enterococcus faecalis - VRE
Streptococcus species
Gram Stain - Final
04/26/25 11:09 Blood Culture - Preliminary
Blood/Venous Klebsiella aerogenes
Gram Stain - Preliminary
04/26/25 10:15 Blood Culture - Preliminary
Blood/Venous Proteus vulgaris
Klebsiella aerogenes
Gram Stain - Preliminary
04/29/25 04:10 C. difficile GDH Antigen & Toxins - Final
Feces/Stool Negative for toxigenic C.difficile
04/23/25 18:00 Blood Culture - Final
Blood/Venous No Growth - Final Report
04/10/25 12:30 Blood Culture - Final
Blood/Venous No Growth - Final Report
04/10/25 10:12 Blood Culture - Final
Blood/Venous No Growth - Final Report
04/13/25 14:55 C. difficile GDH Antigen & Toxins - Final
Feces/Stool Negative for toxigenic C.difficile
04/11/25 04:12 MRSA Screen - Final
Nose Staph aureus MRSA
Imaging:
04/30/2025 ECHO (ALENA): EF approximately 60%. Mitral valve with a small mobile echodensity on the atrial side of the mitral annulus. Echodensity is bright and mobile and may be part of the mitral annular calcification, but cannot exclude vegetation.
Please see full dictation for additional detail.
04/11/2025 ECHO (TTE): technically difficult study. EF approximate 60%. Aortic sclerosis noted. Mitral valve is thickened with dense mitral annular calcification. Adequate mitral valve leaflet excursion noted. Please see full dictation for
additional detail.
04/15/2025 CT abdomen/pelvis with contrast: rectum shows concentric wall thickening compatible with some form of proctitis. Perirectal inflammatory stranding is noted, but no signs of free fluid or drainable collection. Bones are diffusely
demineralized. Osseous destructive process at T8-T9. Recent fracture of the greater trochanter of the right femur is noted. Please see full dictation for additional detail.
04/09/2025 MRI brain without contrast: There are small foci of restricted diffusion involving the bilateral frontoparietal white matter, the left frontal white matter more anteriorly in the right basal ganglia consistent with acute/subacute
infarctions. These may be embolic in nature given the multivessel territory. Mild atrophy with sequelae of moderate chronic small vessel ischemic disease.
Prominent blooming artifact along the left paramedian parietal lobe which is likely sequelae of prior hemorrhage/hematoma.
Photos:
Sacral Wound (05/05/2025 @ 10:45)
Care Review
Plan reviewed with: Nurse
--- NOTE | 2025-05-05 11:47 | W.PN.UPDATE ---
Update Note
Progress Note Update
I saw and evaluated the patient. I reviewed the resident�s note and agree with findings and plan as documented in the resident�s note.
Pt nonverbal.
Gen: NAD, NCAT, appears chronically ill
Eyes: EOMI, PERRLA, no scleral icterus.
Neck: supple.
CV: continues to remain RRR, +S1/S2, no m/r/g.
Resp: continues to remain CTAB, no rales, wheezes, or rhonchi.
Abd: continues to remain +BS, soft, NT, ND
Skin: No rashes.
Neuro: CN 2-12 intact, non-focal.
Psych: calm
04/29/25 16:56 Blood/Venous Blood Culture - Final
No Growth - Final Report
04/29/25 15:06 Blood/Venous Blood Culture - Final
No Growth - Final Report
04/30/25 13:16 Sacral Anaerobic Culture - Preliminary
Culture pending. Anaerobic cultures are examined after 3
days incubation. Additional information to follow.
04/30/25 13:16 Sacral Wound Culture - Preliminary
Enterococcus faecium - VRE
Klebsiella aerogenes
Proteus vulgaris
04/30/25 13:16 Sacral Gram Stain - Preliminary
04/28/25 03:23 Blood/Venous Blood Culture - Final
No Growth - Final Report
04/28/25 03:18 Blood/Venous Blood Culture - Preliminary
Klebsiella aerogenes
04/28/25 03:18 Blood/Venous Gram Stain - Preliminary
04/23/25 14:38 Blood/Venous Blood Culture - Final
Gram negative bacilli
04/23/25 14:38 Blood/Venous Gram Stain - Final
04/23/25 18:00 Sacral Wound Culture - Final
Proteus vulgaris
Klebsiella aerogenes
Enterococcus faecalis - VRE
Streptococcus species
04/23/25 18:00 Sacral Gram Stain - Final
04/26/25 11:09 Blood/Venous Blood Culture - Preliminary
Klebsiella aerogenes
04/26/25 11:09 Blood/Venous Gram Stain - Preliminary
04/26/25 10:15 Blood/Venous Blood Culture - Preliminary
Proteus vulgaris
Klebsiella aerogenes
04/26/25 10:15 Blood/Venous Gram Stain - Preliminary
04/29/25 04:10 Feces/Stool C. difficile GDH Antigen & Toxins - Final
Negative for toxigenic C.difficile
04/23/25 18:00 Blood/Venous Blood Culture - Final
No Growth - Final Report
04/10/25 12:30 Blood/Venous Blood Culture - Final
No Growth - Final Report
04/10/25 10:12 Blood/Venous Blood Culture - Final
No Growth - Final Report
04/13/25 14:55 Feces/Stool C. difficile GDH Antigen & Toxins - Final
Negative for toxigenic C.difficile
04/11/25 04:12 Nose MRSA Screen - Final
Staph aureus MRSA
MRI brain 04/13/25: Small foci of restricted diffusion involving the bilateral frontoparietal white matter, the left frontal white matter more anteriorly in the right basal ganglia consistent with acute/subacute infarctions. These may be embolic in
nature given the multivessel territory. Mild atrophy with sequelae of moderate chronic small vessel ischemic disease. Prominent blooming artifact along the left paramedian parietal lobe which is likely sequelae of prior hemorrhage/hematoma.
Acute/subacute CVAs :
-MRI brain above, likely embolic in nature
-Heparin gtt
Acute metabolic encephalopathy:
-Multifactorial due to hypotension, polypharmacy, hypovolemia, acute/subacute CVAs, and likely vascular dementia
-started on Synthroid, endocrine saw in c/s
-EEG without seizure activity
-Cont to hold gabapentin/Haldol
-Dobhoff placed on 04/18/25 for feeds, replaced again due to blockage
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
-admitted on daptomycin/cefepime and transitioned to IV Zosyn per ID. Then was discontinued prior as per ID as d/c records indicate completion of antibiotics at [place] and unclear as to why they were started at [facility].
-Klebsiella and Proteus vulgaris bacteremia noted on blood culture 04/26/2025. Repeat BCxs from 04/28/2025 with Klebsiella. Sacral WCx 04/30 with VRE, klebsiella, and Proteus. likely source is sacral decubitus ulcer which has been debrided
-ALENA 04/30/25 showed small mobile MV density, cannot exclude vegetation
-Will need to be treated as endocarditis with 6 weeks abx
-ID following
-currently on Dapto/Zosyn
F/E/N:
-after meeting with the patient's sister on 05/05 the decision has been made to not pursue PEG tube. The patient's sister is agreeable to having the Dobbhoff tube removed and IV fluids only at this time.
Pancytopenia:
-anemia likely secondary to chronic kidney disease
-BMBx and MM work up was done at [place] revealing no BM or genetic mutations
-Heme/onc appreciated for possible eval for TTP, no TTP as no schistocytes and normal LDH, antibody panels for other causes of hypercoagulable states pending
-s/p 2U pRBCs this admission
-Thrombocytopenia and leukopenia have resolved
Other problems:
Lupus anticoagulant positive likely contributing to hypercoagulable state. Heparin gtt restarted.
Hypothyroidism: cont Synthroid
Elevated troponin, nonischemic myocardial injury and due to underlying ESRD
Chronic HFpEF: cont BB
ESRD: cont HD M/W/F, renal following
PAF: Cont BB/heparin drip
Anxiety/depression: seen by psych
? Metastatic disease: Hospital records from [place] revealed concerns for metastatic disease after MRI of spine done. Some proctocolitis of bowels noted on imaging as well. CT A/P revealed no obvious metastatic disease
Diarrhea: C diff NEG
R greater trochanteric femur fracture: No surgical intervention required per ortho.
Essential HTN: BB with holding parameters
HLD: Cont statin
Hypokalemia, replete PRN
Hypophosphatemia
Hyponatremia, resolved
Bedbound since November 2024 with intermittent confusion at baseline
DM2: SSI/accuchecks
Likely vascular dementia
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
Osseous destruction of T8-T9
Splenomegaly
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
Wounds:
-Stage IV sacral pressure injury, wound debridement done by surgeon on 04/30/25: Necrotic skin subcutaneous tissue muscle and fascia debrided, There was also 6cm space in the ischial area with malodorous pus. Exposed sacral bone.
-stage I B/L heel pressure injury
-wound care and change of position.
-Tylenol 1,000mg TID for pain
-Oxycodone PRN
Overall care is futile. At this point the patient's family does not want PEG tube placement. They will likely transition the patient to hospice.
DNR/Heparin gtt
--- NOTE | 2025-05-05 12:00 | W.PN.UPDATE ---
Update Note
Progress Note Update
After long conversation between case management, the pastoral care services and family, family is agreeable to remove dobhoff tube at this time. They do not want a PEG tube. They are leaning towards hospice but would like to speak to the hospice
care nurse before transitioning. CM hospice nurse consult placed.
[2025-05-05 12:31] LABS: Glucose - Point of Care 117 mg/dl (70-99)
--- NOTE | 2025-05-05 13:24 | W.PN.NEPH.HD ---
Progress Note - Hemodialysis
-
Date of Service: May 05, 2025
Duration: 30 minutes and 3 hours
Potassium Bath: 4
Calcium Bath: 2.5
Opti-Dialyzer: 160
Ultrafiltration: Other (2kg)
Blood Flow: 400
Dialysate Flow: 600
Heparin: 0
EPO: [id number] units
[2025-05-05] MEDS: RETACRIT 10000 UNITS IV (13:35)
[2025-05-05] MEDS: D5/0.45%NACL 1000 IV (14:09)
[2025-05-05 14:20] LABS: APTT 194.8 Sec (23.4-35.0)
--- NOTE | 2025-05-05 14:34 | W.PN.UPDATE ---
Update Note
Progress Note Update
Rachel the top case assembler made me aware the patient's sister Geovanni wanted a second opinion on her brother's medical condition. I spoke to her over the phone and she provided [facility] second opinion access line [phone]. I was able to speak
with a Neurologist Dr. Quang Araujo who is the director of neurology at the [facility].
I explained the following:
59 y/o male with baseline poor medical health with history of ESRD on dialysis, paroxysmal a.fib on Eliquis, HTN, HLD, DM, PAD s/p multiple toe amputations, CHF, Anxiety, Depression, suspected underlying vascular dementia recent prolonged
hospitalization [facility] January 11 to March 17 for complicated by VRE and Klebsiella bacteremia (following which he was discharged to [facility] with intermediate accountant IV abx Cefepime and Daptomycin to be given with HD) was sent by SNF for
evaluation AMS and hypotension. We provided fluid resuscitation and continued antibiotics with no change. Head CT was unremarkable. We did an EEG to rule out seizure which was inconclusive as well as transitioned him from cefepime to zosyn to rule
out cefepime neurotoxicity. Brain MRI revealed ' small foci of restricted diffusion involving the bilateral frontoparietal white matter, the left frontal white matter more anteriorly in the right basal ganglia consistent with acute/subacute
infarctions. These may be embolic in nature given the multivessel territory. Mild atrophy with sequelae of moderate chronic small vessel ischemic disease. Prominent blooming artifact along the left paramedian parietal lobe which is likely sequelae
of prior hemorrhage/hematoma.' During this period records from [facility] were obtained and it was shown he completed his antibiotic course there. As cultures were negative here and afebrile so antibiotics were discontinued here. Due to his
obtunded state, a ALENA was deferred at that time for risk of aspiration but a work up for other causes of hyper-coaguable state was done and he was found to be lupus anticoagulant positive. We were going to transition to warfarin with heparin bridge
when he spiked a new onset fever. Extensive infectious work up began and source thought to be due to sacral wound. Family agreed to sacral wound debridement under anesthesia at which point a concurrent ALENA was done. ALENA found possible vegetations
and a 6 week antibiotic course was recommended. The sacral wound debridement was down to the bone and over the next few days appeared to be getting worse with no granulation tissue and consistent exposure to feces as patient has ongoing diarrhea
with tube feeds despite attempts to limit exposure with rectal tube. In the midst of this, a dobhoff tube was placed for nutrition as NPO in obtunded state. Discussions with family were ongoing as to goals of care with the understanding that an
eventual PEG tube would be required. I stated that at this point we believe overall medical care is futile and we recommend hospice. Neurology also spoke to family and let them know the chances of his mental status ever returning to baseline are
slim to none. I did mention there were a few interactions the patient had with family that provided moments of hope.
I did not discuss his other chronic conditions in as much depth as I believed this description provided an adequate clinical picture.
Dr. Araujo stated that from a neurology standpoint, even if we removed the underlying neurological issues, this patient would be a good candidate for hospice. He stated regardless of the stroke his outcome appears poor considering all of his
comorbidities. In regards to the stroke, he suspects the embolic source to be due to the valve vegetation. He stated sometimes patients with extensive septic emboli have unimpressive imaging, but the change in mental status is significant. It can
start to improve as the body tries to heal itself, but due to Mr. Mondragon's poor overall health his body does not likely have the reserves to heal. He stated he will write an update note in his chart in their system (the patient had a prior chart
there from when he lived in [place]) so that the patient's sister could see. He overall agrees this patient is suitable for hospice.
I called Geovanni back and shared the above information. She stated she understands and will speak about hospice further with the hospice nurse later this week.
--- NOTE | 2025-05-05 15:01 | HOSPNOTE ---
Hospice meeting scheduled for Monday 11am via phone conference with family. More information to follow.
--- NOTE | 2025-05-05 15:02 | PTCARENOTE ---
Confirmed with Peace Ivey discontinued per MD order. Removed without difficulty.
--- NOTE | 2025-05-05 15:29 | CM ---
Following up on Patient. Medical Team shared that they would like a decision re: a peg tube today. DEO Ramos was made aware that the sister Geovanni came to visit yesterday, asked for a change advisor who visited him, and saw some changes in him.
Today, DEO Ramos received a text message from the sister Geovanni who wants to have this meeting re: peg tube as she was asked to have this today and she can include the daughters of the patient and her sisters. DEO Ramos asked for Director of
Director Of Entertainment to be present for spiritual support while DEO Ramos is for emotional, and Resident Dr. Ashley for Medical Support.
All present:
Dr. Ashley
Yaneth Lemon
Rachel Tijerina
Sister: Megan: #[phone]
Sister: Meenakshi: #[phone]
Sister: Geovanni: #[phone]
Fabián: Kamryn: #[phone]
Fabián: Esha: #[phone]
Meeting went well, Dr. Ashley explained the medical picture broadley and in excellent detail that there were few questions. The decision was to remove the DobOff tube and not put a peg tube it then have hospice (idea brought up by Yaneth)
lead customer service representative explain what this would look like.
Take aways is that Megan and Meenakshi as well as Kamryn were emotional at times, all asked good questions, all agreed that they do not want him to suffer, it is just that all are not there yet with stopping all, BUT are on their way. Sister Geovanni
asked a lot of questions and still has some that she would like answered before making a final decision WITH everyone.
Geovanni after the meeting asked about a nuerology consult from another hospital that Dr. Ashley answered, which the other agrees with this team. DEO Ramos spoke to Lisa from [facility] who will be present for Family meeting on May 07 at 11am.
DEO Ramos informed all family of this. Medical Team aware of these next steps that are small, but are on their way.
PLAN: Hospice meeting for information only.
[2025-05-05] MEDS: TYLENOL TUBE (16:43)
[2025-05-05 18:02] LABS: Glucose - Point of Care 144 mg/dl (70-99)
[2025-05-05] MEDS: CUBICIN 14 MG IV (18:45)
[2025-05-05] MEDS: LOPRESSOR 5 MG IV (18:45)
[2025-05-05] MEDS: FLUSH (NSS) 3 FLUSH IV (18:46)
--- NOTE | 2025-05-05 19:19 | PTCARENOTE ---
Patient opens eyes, no tracking and no purposeful movements of extremities. Pt tolerated HD today, Family spoke with case management and medical team. Plan is to meet with Hospice on Weds and decide on course of action for patient care.
[2025-05-05 22:03] LABS: APTT 69.4 Sec (23.4-35.0)
[2025-05-05] MEDS: HEPARIN 2600 UNITS IV (22:40)
[2025-05-05 23:58] LABS: Glucose - Point of Care 139 mg/dl (70-99)
[2025-05-06] VITALS (13 sets, daily range): BP systolic 120–166; BP diastolic 56–77; BMI 19.0
[2025-05-06] MEDS: NOVOLOG FLEXPEN-MODERATE RESISTANCE SC (00:54)
[2025-05-06] MEDS: LOPRESSOR 5 MG IV ×5 (01:20→23:03)
[2025-05-06] MEDS: MORPHINE SULFATE 1 MG IV (02:24)
[2025-05-06 05:05] LABS: APTT 81.7 Sec (23.4-35.0)
[2025-05-06 05:08] LABS: Hematocrit 27.1 % (39.0-52.0); Hemoglobin 8.9 g/dL (13.0-18.0); Mean Corp Hgb Conc. 32.8 g/dL (33.0-37.0); Mean Corpuscular Volume 93.8 fL (80.0-94.0); Nucleated Red Blood Cells % 0 % (-); Platelet Count 177 10^3/uL (130-400); Red Cell Dist. Width 26.4 % (11.5-14.5)
[2025-05-06] MEDS: ZOSYN 50 IV ×3 (05:18→21:10)
[2025-05-06] MEDS: D5/0.45%NACL 1000 IV ×2 (05:19→23:03)
[2025-05-06 05:27] LABS: ALT (SGPT) 13 U/L (0-50); AST (SGOT) 18 U/L (17-59); Albumin 2.2 g/dl (3.5-5.0); Alkaline Phosphatase 312 U/L (38-126); Blood Urea Nitrogen 49 mg/dl (9-20); Calcium 8.7 mg/dl (8.4-10.2); Carbon Dioxide 25 mmol/L (22-30); Chloride 102 mmol/L (98-107); Estimated Creatinine Clearance 36 ml/min; Glucose 170 mg/dl (70-99); Potassium 3.5 mmol/L (3.5-5.1); Sodium 135 mmol/L (135-145); Total Protein 5.2 g/dl (6.3-8.2); eGFR 35.81
[2025-05-06 05:42] LABS: Anisocytosis 1+; Macrocytosis 2+
[2025-05-06 06:04] LABS: Glucose - Point of Care 172 mg/dl (70-99)
[2025-05-06 06:19] LABS: Normal RBC Morphology No
[2025-05-06] MEDS: NOVOLOG FLEXPEN-MODERATE RESISTANCE 1 UNITS SC ×2 (06:33→13:11)
--- NOTE | 2025-05-06 07:25 | W.PN.ID1 ---
Date of Service
Date of Service: May 06, 2025
Today's Communication
Continue antibiotics for today.
Assessment / Plan
Bacteremia
- 04/23 blood cx's blood culture with gram-negative rods, but could not speciate.
- 04/23 CXR: mild opacity RLL atelectasis vs PNA
- 04/26/25 blood cx's with Klebsiella aerogenes and Proteus vulgaris. These organisms were also recovered from the unstageable sacral decubiti.
-04/23 Sacral wound polymicrobial growth, including Proteus, Klebsiella, VRE (amp resistant) and an additional strep species
- Potential sources of bacteremia include sacral wound, HD line.
Fever - intermittent
Leukocytosis
Suspected mitral valve vegetation
- Given recent bacteremia, there is high probability that if truly a vegetation it is infected.
Encephalopathy; ongoing
Hx VRE / Klebsiella infection 2* HD cath CLABSI (at OSH)
- Previously on dapto / cefepime when arrived from nursing facility.
- Completed course of therapy
Unstageable sacral wound
Penile dermal necrosis
Vascular dementia
P A-fib (on Eliquis)
ESRD�HD (MWF)
DM
PAD
CHF
Anxiety/depression
Recommendations:
Most recent sacral cultures from 04/30 now reveal presence of VRE (amp resistant). Will reinitiate a short course of daptomycin. Follow CK while on dapto. Hold statin.
Continue local care to sacral wound. Progressive necrosis noted.
Continue Zosyn (d#11) for today. Continue dapto.
Overall prognosis at this point appears exceedingly poor to nonexistent.
Patient with [id number] wound healing capacity given underlying cachexia, low albumin and protein stores. Progressive dermal gangrene of sacral area is evidence of this.
Chart reviewed. Following Neurological second opinion with a physician at [facility], family now leaning towards hospice. Will be meeting with hospice nurse in the next 24 to 48 hours.
����������������������������������������������������������
Chief Complaint
-: Fever, Bacteremia and Other (Change in mental status, failure to thrive)
Subjective / Review of Systems
Patient seen and examined. No significant changes overnight. Chart reviewed and discussions regarding second opinions at [facility] and potential hospice noted.
Review of Systems: No Fever
Vital Signs / Physical Exam
Vital Signs
Vital Signs
Temp Pulse Resp BP Pulse Ox
98.7 F 83 16 122/56 98
05/06/25 03:00 05/06/25 06:00 05/06/25 06:00 05/06/25 06:00 05/06/25 03:31
Physical Exam
Constitutional: Acutely Ill, Chronically Ill and Cachetic
Head: Other (Temporal wasting. )
Eyes: Sclera Anicteric
Cardiovascular: S1/S2; Negative S3/S4
Pulmonary: Non Labored; Negative Wheezes
Gastrointestinal: Soft, Non Distended and Other (FMS in place.)
Extremities: Negative Edema, Cyanosis or Erythema
Wound: Other (Sacral wound dressed.)
Neurological: Awake and Other (Nonverbal)
Psychological: Calm
Lines: CVP (Left IJ) and HD Cath (Left ACW)
Objective Data
Lab Data
Lab Results
05/06/25 04:34
05/06/25 04:34
PT 19.6 Sec (11.4-14.6) H 04/24/25 05:43
INR 1.60 04/24/25 05:43
APTT 81.7 Sec (23.4-35.0) H 05/06/25 04:34
Estimated Creat Clear 36 ml/min 05/06/25 04:34
Lactic Acid Cancelled 04/10/25 14:15
Total Bilirubin 1.3 mg/dl (0.2-1.3) 05/06/25 04:34
AST 18 U/L (17-59) 05/06/25 04:34
ALT 13 U/L (0-50) 05/06/25 04:34
Alkaline Phosphatase 312 U/L (38-126) H 05/06/25 04:34
Most recent labs reviewed.
Micro Results:
04/30/25 13:16 Wound Culture - Final
Sacral Enterococcus faecium - VRE
Klebsiella aerogenes
Proteus vulgaris
Gram Stain - Final
04/30/25 13:16 Anaerobic Culture - Final
Sacral
04/29/25 16:56 Blood Culture - Final
Blood/Venous No Growth - Final Report
04/29/25 15:06 Blood Culture - Final
Blood/Venous No Growth - Final Report
04/28/25 03:23 Blood Culture - Final
Blood/Venous No Growth - Final Report
04/28/25 03:18 Blood Culture - Preliminary
Blood/Venous Klebsiella aerogenes
Gram Stain - Preliminary
04/23/25 14:38 Blood Culture - Final
Blood/Venous Gram negative bacilli
Gram Stain - Final
04/23/25 18:00 Wound Culture - Final
Sacral Proteus vulgaris
Klebsiella aerogenes
Enterococcus faecalis - VRE
Streptococcus species
Gram Stain - Final
04/26/25 11:09 Blood Culture - Preliminary
Blood/Venous Klebsiella aerogenes
Gram Stain - Preliminary
04/26/25 10:15 Blood Culture - Preliminary
Blood/Venous Proteus vulgaris
Klebsiella aerogenes
Gram Stain - Preliminary
04/29/25 04:10 C. difficile GDH Antigen & Toxins - Final
Feces/Stool Negative for toxigenic C.difficile
04/23/25 18:00 Blood Culture - Final
Blood/Venous No Growth - Final Report
04/10/25 12:30 Blood Culture - Final
Blood/Venous No Growth - Final Report
04/10/25 10:12 Blood Culture - Final
Blood/Venous No Growth - Final Report
04/13/25 14:55 C. difficile GDH Antigen & Toxins - Final
Feces/Stool Negative for toxigenic C.difficile
04/11/25 04:12 MRSA Screen - Final
Nose Staph aureus MRSA
Imaging:
04/30/2025 ECHO (ALENA): EF approximately 60%. Mitral valve with a small mobile echodensity on the atrial side of the mitral annulus. Echodensity is bright and mobile and may be part of the mitral annular calcification, but cannot exclude vegetation.
Please see full dictation for additional detail.
04/11/2025 ECHO (TTE): technically difficult study. EF approximate 60%. Aortic sclerosis noted. Mitral valve is thickened with dense mitral annular calcification. Adequate mitral valve leaflet excursion noted. Please see full dictation for
additional detail.
04/15/2025 CT abdomen/pelvis with contrast: rectum shows concentric wall thickening compatible with some form of proctitis. Perirectal inflammatory stranding is noted, but no signs of free fluid or drainable collection. Bones are diffusely
demineralized. Osseous destructive process at T8-T9. Recent fracture of the greater trochanter of the right femur is noted. Please see full dictation for additional detail.
04/09/2025 MRI brain without contrast: There are small foci of restricted diffusion involving the bilateral frontoparietal white matter, the left frontal white matter more anteriorly in the right basal ganglia consistent with acute/subacute
infarctions. These may be embolic in nature given the multivessel territory. Mild atrophy with sequelae of moderate chronic small vessel ischemic disease.
Prominent blooming artifact along the left paramedian parietal lobe which is likely sequelae of prior hemorrhage/hematoma.
--- NOTE | 2025-05-06 07:55 | W.PN.HOSP.TC ---
Today's Communication/Plan
-
Transition from PO back to IV meds
D5 with 1/2 normal saline at low rate
Continued discussion with family regarding hospice
Continue heparin
Daptomycin added for VRE in sacral wound
Assessment / Plan
Assessment / Plan
59 y/o patient had a prolonged hospitalization at [facility] January 11, 2025 to March 17, 2025 for intractable back pain, catheter associated infection, Klebsiella bacteremia. On long-term IV antibiotics cefepime and daptomycin with HD here
for acute change in mental status. Patient was obtunded on arrival and hypotensive. Baseline intermittently confused and bedbound since November 2024 per POA. Able to talk to sister on the phone at baseline.
CT Head: No acute intracranial abnormality noted.There are mild/moderate periventricular and subcortical white matter hypodensities which are nonspecific, however likely sequelae of chronic small vessel ischemic disease.
EEG 04/11/2025: Diffuse cortical dysfunction without focal abnormality. No seizures activity.
Echo 04/11/2025: TDS. EF 60-65%, no RWMA.
MRI brain 04/13/25: There are small foci of restricted diffusion involving the bilateral frontoparietal white matter, the left frontal white matter more anteriorly in the right basal ganglia consistent with acute/subacute infarctions. These may be
embolic in nature given the multivessel territory. Mild atrophy with sequelae of moderate chronic small vessel ischemic disease. Prominent blooming artifact along the left paramedian parietal lobe which is likely sequelae of prior
hemorrhage/hematoma.
CT A/P w/IV contrast 04/15/25: Limited exam, anasarca, splenomegaly, atrophic bilateral kidneys, proctitis indeterminate etiology, diffuse wall thickening of the urinary bladder outlet obstruction without source neurogenic bladder. Small focus of
gas in the bladder. Recent fracture of greater trochanter of right femur. Osseous destructive process of the T8-T9. Abnormal lucent and sclerotic appearance of the bones likely renal osteodystrophy
R Hip x-ray 04/17/25: Findings suggesting subacute fracture of the right greater trochanter.
CXR 04/23: Mild pulmonary vascular congestion. Mild hazy opacity in the right lung base, which could represent atelectasis or pneumonia.
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 However, if there is no history of clot in this region, early thrombus cannot be excluded. Clinical correlation recommended
#Acute/subacute CVAs :
-MRI brain above, likely embolic in nature - likely valve vegetation
-Discussed case with Director of Neurology at [facility] Dr. Araujo and he stated regardless of CVA, patient is a good candidate for hospice and has little change of meaningful recovery.
# Mitral valve vegetation
-Noted on ALENA on 04/30
-Could be source of embolic stroke
-6 week course of antibiotics per ID - currently on zosyn
# Unstageable necrotic sacral wound -debridement on 04/30/25
- Post op day 6 sacral debridement
- Wound culture revealed klebsiella, proteus vulgaris and enterococcus species
- No granulation tissue per wound care - worsening with progressive dermal gangrene - rectal tube placed to protect wound from ongoing diarrhea - poor prognosis
#Right hand swelling
- Increased from before. Known clot in right hand. Warm compress
#Acute metabolic encephalopathy
-Multifactorial due to hypotension, polypharmacy, hypovolemia, (possibly) acute/subacute CVAs, and likely vascular dementia
-started on IV Synthroid, endocrine saw in c/s
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
-EEG without seizure activity
-Cont to hold gabapentin/Haldol
-Dobhoff placed on 04/18/25 for feeds - replaced 04/28/25 because it got clogged - length adjusted from 80 to 65 per previous as night team was concerned with length - repeat x-ray good position
-As pt's sister wants to continue aggressive care, GI consulted for PEG placement - pressure wound from dobhoff noted - Family decided against PEG tube. Dobhoff was removed 05/05 and started on D5 1/2 NS low rate - discussed with nephrology.
#Febrile
#H/O VRE and Klebsiella bacteremia:
-admitted on daptomycin/cefepime and transitioned to IV Zosyn per ID. Now off abx as per ID as d/c records indicate completion of antibiotics at [facility] and unclear as to why they were started at [facility]. Cultures were negative and pt was
afebrile.
-04/23/25AM temp 101.2 F. Septic w/u with BCxs, chest x-ray. Abx ordered but stopped by ID.
-Zosyn started 04/26/2025 to cover for positive blood cultures with klebsiella and proteus vulgaris. Daptomycin added with dialysis 05/05 for VRE growth from sacral wound cultures - No PO access so no statin regardless
-Infectious disease following
#Pancytopenia:
-anemia likely secondary to chronic kidney disease likely worsened by prior daptomycin treatment
-BMBx and MM work up was done at [place] revealing no BM or genetic mutations
-Heme/onc appreciated for possible eval for TTP, no TTP as no schistocytes and normal LDH
-Status post 2 units of PRBCs this admission
#Anxiety/depression
-Psychiatric valuation appreciated. BuSpar discontinued.
-Taper off lexapro per psych - off lexapro with no change in mental status.
#Lupus anticoagulant positive likely contributing to hypercoagulable state. Heparin bridge started. Bridged to warfarin once PEG tube is placed - now that there is no PEG, remain on heparin drip until family decides to move towards hospice or not.
#Hypothyroidism - repeat TSH 14.4 and free T4 0.72. Okay to transition from IV levothyroxine 75 to PO 75 per endocrinology - shaun out start IV 50 levo daily.
#Elevated troponin, nonischemic myocardial injury and due to underlying ESRD
#Chronic HFpEF: cont BB - IV
#ESRD: cont HD M/W/F, renal following
#PAF: Cont BB/heparin drip
#? Metastatic disease: Hospital records from [place] revealed concerns for metastatic disease after MRI of spine done. Some proctocolitis of bowels noted on imaging as well. CT A/P revealed no obvious metastatic disease
#Diarrhea: C diff NEG 04/13, c.diff (-) 04/29
#R greater trochanteric femur fracture: No surgical intervention required per ortho.
#Essential HTN: BB with holding parameters
#HLD: Cont statin
#Hypokalemia, replete prn
#Hypophosphatemia, replete
#Bedbound since November 2024 with intermittent confusion at baseline
#DM2: SSI/accuchecks
#Concern for vascular dementia
#Amputation of the left toes 1-3
#Osseous destruction of T8-T9
#Splenomegaly
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
#Wounds unstageable
-Unstageable sacral pressure injury
-stage I B/L heel pressure injury
-wound care
-Tylenol 1,000mg TID for pain - IV tylenol. No rectal access with ongoing diarrhea and rectal tube placed
# DVT prophylaxis-heparin
# DNR Status now
Long conversation with family yesterday and decided against PEG. Further discussions with hospice nurse scheduled for 05/07 at 11am. Second opinion by neurologist at [place] was also provided who agreed this patient is hospice appropriate.
Anticipated Discharge: > 48 hours
Subjective/Interval History
-
Date of Service: May 06, 2025
Remains obtunded. Overnight, patient was in significant pain and kept crying 'help.' The night nurse was in tears over the distress he was in. He was provided 1 mg of morphine.
Objective Data
-
Labs:
Laboratory Results
05/05/25 05/06/25 05/06/25
21:35 04:34 11:00
WBC 16.0 H
Hgb 8.9 L
Hct 27.1 L
Plt Count 177
APTT 69.4 H 81.7 H Pending
Sodium 135
Potassium 3.5
Chloride 102
Carbon Dioxide 25
BUN 49 H
Creatinine 2.1 H
Glucose 170 H
Calcium 8.7
Total Bilirubin 1.3
AST 18
ALT 13
Alkaline Phosphatase 312 H
Vital Signs:
Vital Signs
Temp Pulse Resp BP Pulse Ox
98.7 F 83 16 122/56 98
05/06/25 03:00 05/06/25 06:00 05/06/25 06:00 05/06/25 06:00 05/06/25 03:31
Review of Systems
-
Unable to obtain full review of systems at this time due to: Dementia and Acuity
Physical Exam
-
General: Appears Chronically Ill
Respiratory: Clear to Auscultation
Cardiac: Regular Rhythm and S1/S2
GI: Soft, Nondistended and Normal Bowel Sounds
Musculoskeletal: Other (Increase RUE edema > left )
--- NOTE | 2025-05-06 09:40 | W.PN.UPDATE ---
Update Note
Progress Note Update
I saw and evaluated the patient. I reviewed the resident�s note and agree with findings and plan as documented in the resident�s note.
Pt nonverbal.
Gen: NAD, NCAT, appears chronically ill
Eyes: EOMI, PERRLA, no scleral icterus.
Neck: supple.
CV: RRR, +S1/S2, no m/r/g.
Resp: CTAB, no rales, wheezes, or rhonchi.
Abd: +BS, soft, NT, ND
Skin: No rashes.
Neuro: CN 2-12 intact, non-focal.
Psych: calm
04/30/25 13:16 Sacral Wound Culture - Final
Enterococcus faecium - VRE
Klebsiella aerogenes
Proteus vulgaris
04/30/25 13:16 Sacral Gram Stain - Final
04/30/25 13:16 Sacral Anaerobic Culture - Final
04/29/25 16:56 Blood/Venous Blood Culture - Final
No Growth - Final Report
04/29/25 15:06 Blood/Venous Blood Culture - Final
No Growth - Final Report
04/28/25 03:23 Blood/Venous Blood Culture - Final
No Growth - Final Report
04/28/25 03:18 Blood/Venous Blood Culture - Preliminary
Klebsiella aerogenes
04/28/25 03:18 Blood/Venous Gram Stain - Preliminary
04/23/25 14:38 Blood/Venous Blood Culture - Final
Gram negative bacilli
04/23/25 14:38 Blood/Venous Gram Stain - Final
04/23/25 18:00 Sacral Wound Culture - Final
Proteus vulgaris
Klebsiella aerogenes
Enterococcus faecalis - VRE
Streptococcus species
04/23/25 18:00 Sacral Gram Stain - Final
04/26/25 11:09 Blood/Venous Blood Culture - Preliminary
Klebsiella aerogenes
04/26/25 11:09 Blood/Venous Gram Stain - Preliminary
04/26/25 10:15 Blood/Venous Blood Culture - Preliminary
Proteus vulgaris
Klebsiella aerogenes
04/26/25 10:15 Blood/Venous Gram Stain - Preliminary
04/29/25 04:10 Feces/Stool C. difficile GDH Antigen & Toxins - Final
Negative for toxigenic C.difficile
04/23/25 18:00 Blood/Venous Blood Culture - Final
No Growth - Final Report
04/10/25 12:30 Blood/Venous Blood Culture - Final
No Growth - Final Report
04/10/25 10:12 Blood/Venous Blood Culture - Final
No Growth - Final Report
04/13/25 14:55 Feces/Stool C. difficile GDH Antigen & Toxins - Final
Negative for toxigenic C.difficile
04/11/25 04:12 Nose MRSA Screen - Final
Staph aureus MRSA
MRI brain 04/13/25: Small foci of restricted diffusion involving the bilateral frontoparietal white matter, the left frontal white matter more anteriorly in the right basal ganglia consistent with acute/subacute infarctions. These may be embolic in
nature given the multivessel territory. Mild atrophy with sequelae of moderate chronic small vessel ischemic disease. Prominent blooming artifact along the left paramedian parietal lobe which is likely sequelae of prior hemorrhage/hematoma.
Acute/subacute CVAs :
-MRI brain above, likely embolic in nature
-Heparin gtt
Acute metabolic encephalopathy:
-Multifactorial due to hypotension, polypharmacy, hypovolemia, acute/subacute CVAs, and likely vascular dementia
-started on Synthroid, endocrine saw in c/s
-EEG without seizure activity
-Cont to hold gabapentin/Haldol
-Dobhoff placed on 04/18/25 for feeds, replaced again due to blockage
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
-admitted on daptomycin/cefepime and transitioned to IV Zosyn per ID. Then was discontinued prior as per ID as d/c records indicate completion of antibiotics at [place] and unclear as to why they were started at [facility].
-Klebsiella and Proteus vulgaris bacteremia noted on blood culture 04/26/2025. Repeat BCxs from 04/28/2025 with Klebsiella. Sacral WCx 04/30 with VRE, klebsiella, and Proteus. likely source is sacral decubitus ulcer which has been debrided
-ALENA 04/30/25 showed small mobile MV density, cannot exclude vegetation
-Will need to be treated as endocarditis with 6 weeks abx
-ID following
-currently on Dapto/Zosyn
F/E/N:
-after meeting with the patient's sister on 05/05 the decision has been made to not pursue PEG tube. The patient's sister is agreeable to having the Dobbhoff tube removed and IV fluids only at this time.
-DHT removed 05/05/25
Pancytopenia:
-anemia likely secondary to chronic kidney disease
-BMBx and MM work up was done at [place] revealing no BM or genetic mutations
-Heme/onc appreciated for possible eval for TTP, no TTP as no schistocytes and normal LDH, antibody panels for other causes of hypercoagulable states pending
-s/p 2U pRBCs this admission
-Thrombocytopenia and leukopenia have resolved
Other problems:
Lupus anticoagulant positive likely contributing to hypercoagulable state. Heparin gtt restarted.
Hypothyroidism: cont Synthroid
Elevated troponin, nonischemic myocardial injury and due to underlying ESRD
Chronic HFpEF: cont BB
ESRD: cont HD M/W/F, renal following
PAF: Cont BB/heparin drip
Anxiety/depression: seen by psych
? Metastatic disease: Hospital records from [place] revealed concerns for metastatic disease after MRI of spine done. Some proctocolitis of bowels noted on imaging as well. CT A/P revealed no obvious metastatic disease
Diarrhea: C diff NEG
R greater trochanteric femur fracture: No surgical intervention required per ortho.
Essential HTN: BB with holding parameters
HLD: Cont statin
Hypokalemia, replete PRN
Hypophosphatemia
Hyponatremia, resolved
Bedbound since November 2024 with intermittent confusion at baseline
DM2: SSI/accuchecks
Likely vascular dementia
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
Osseous destruction of T8-T9
Splenomegaly
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
Wounds:
-Stage IV sacral pressure injury, wound debridement done by surgeon on 04/30/25: Necrotic skin subcutaneous tissue muscle and fascia debrided, There was also 6cm space in the ischial area with malodorous pus. Exposed sacral bone.
-stage I B/L heel pressure injury
-wound care and change of position.
-Tylenol 1,000mg TID for pain
-Oxycodone PRN
Overall care is futile. At this point the patient's family does not want PEG tube placement. They will likely transition the patient to hospice.
DNR/Heparin gtt
[2025-05-06] MEDS: DESENEX/MITRAZOL/ZEASORB 1 APPLIC TOPICAL ×2 (10:22→21:09)
[2025-05-06] MEDS: DAKIN'S SOLUTION 0.125% 1/4 STRENGTH 1 ML TOPICAL (10:22)
[2025-05-06] MEDS: MYCOSTATIN ORAL SUSPENSION 5 ML PO ×4 (10:25→21:09)
[2025-05-06] MEDS: PROTONIX IV 40 MG IV (10:25)
[2025-05-06] MEDS: NSS (PRESERVATIVE FREE) 10 ML IV (10:26)
[2025-05-06] MEDS: SANTYL OINTMENT 1 APPLIC TOPICAL (10:26)
--- NOTE | 2025-05-06 11:18 | W.PN.NEPH.PH ---
Today's Communication / Plan
-
Dialysis tomorrow no acute need today
Assessment/Plan
-
59M [facility] resident ESRD MWF roxanne Eliquis HTN HLD DM PAD toe amputations CHF Anxiety Depression suspected underlying vascular dementia recent prolonged hospitalization [facility] January 11 to March 17 for intractable back pain catheter
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
arrival with associate severe hypotension systolic 70s. Improved with IVF bolus,
Impression
ESRD MWF [facility]
Sepsis
A-fib
Dementia/AMS
CVA
History of Klebsiella pneumonia due to catheter in December 2024 at [facility]
right cephalic nonocclusive thrombus, RUE edema
Plan:
MWF
possible PEG (Requested by family)
s/p decub wound debridement on 04/30
ALENA concern of vegetation mitral valve
abx per ID
no FWF
overall prognosis is poor, he will be unlikely to ever leave [place]
continue dialysis until Hospice decision pending meeting on 05/07
-
-
Date of Service: May 06, 2025
CC / HPI / ROS
-
Chief Complaint:
AMS, ESRD
History of Present Illness:
Anemia stable
BP stable
End-stage renal disease on Monday dialysis cath
tolerated HD monday
Review of Systems:
no fever
noncommunicative
Labs
-
Labs:
WBC 16.0 10^3/uL (4.8-10.8) H 05/06/25 04:34
RBC 2.89 10^6/uL (4.70-6.10) L 05/06/25 04:34
Hgb 8.9 g/dL (13.0-18.0) L 05/06/25 04:34
Hct 27.1 % (39.0-52.0) L 05/06/25 04:34
Plt Count 177 10^3/uL (130-400) 05/06/25 04:34
Sodium 135 mmol/L (135-145) 05/06/25 04:34
Potassium 3.5 mmol/L (3.5-5.1) 05/06/25 04:34
Chloride 102 mmol/L (98-107) 05/06/25 04:34
Carbon Dioxide 25 mmol/L (22-30) 05/06/25 04:34
BUN 49 mg/dl (9-20) H 05/06/25 04:34
Creatinine 2.1 mg/dL (0.7-1.3) H 05/06/25 04:34
eGFR 35.81 05/06/25 04:34
Glucose 170 mg/dl (70-99) H 05/06/25 04:34
Calcium 8.7 mg/dl (8.4-10.2) 05/06/25 04:34
Phosphorus 1.5 mg/dl (2.5-4.5) L 04/20/25 04:29
Albumin 2.2 g/dl (3.5-5.0) L 05/06/25 04:34
Physical Exam
-
Vital Signs:
Vital Signs
Temp Pulse Resp BP Pulse Ox
97.7 F 83 16 122/56 98
05/06/25 08:00 05/06/25 06:00 05/06/25 06:00 05/06/25 06:00 05/06/25 03:31
Cardiovascular:: Regular rate and rhythm
Respiratory:: Bilateral: Coarse
Lung Excursion:: Normal
Abdomen:: Nontender and Soft
Bowel Sounds:: Normal
Extremity Edema:: None: Bilateral:
[2025-05-06 11:38] LABS: APTT 64.3 Sec (23.4-35.0)
[2025-05-06 12:38] LABS: Glucose - Point of Care 191 mg/dl (70-99)
[2025-05-06] MEDS: HEPARIN 2600 UNITS IV (13:21)
--- NOTE | 2025-05-06 14:06 | W.PN.UPDATE ---
Update Note
Progress Note Update
Plan of care reviewed. Family decided no PEG. GI signing off. Please call back if we can be of further assistance.
--- NOTE | 2025-05-06 14:39 | CHAP ---
Mr. Mondragon received Sacrament of the Sick from [facility] today.
[2025-05-06] MEDS: HEPARIN 25000 UNITS/250 ML IV (15:28)
[2025-05-06] MEDS: OFIRMEV 100 IV ×2 (15:30→23:04)
--- NOTE | 2025-05-06 16:39 | CM ---
Following up on Patient.
Austyn is out today and Resident Bailey said that patient will be getting IV tylenol for his pain. Hospice Information meeting will happen tomorrow at 11am.
PLAN: Hospice Info Meeting
--- NOTE | 2025-05-06 17:29 | PTCARENOTE ---
Rec'd pt this AM. Pt unresponsive much of the day, only arousable to pain. Heparin drip infusing. Hospice meeting tomorrow.
[2025-05-06 17:53] LABS: Glucose - Point of Care 210 mg/dl (70-99)
[2025-05-06] MEDS: LEVOTHROID 50 MCG IV (18:09)
[2025-05-06] MEDS: NOVOLOG FLEXPEN-MODERATE RESISTANCE 3 UNITS SC (18:09)
[2025-05-06 20:57] LABS: APTT 124.1 Sec (23.4-35.0)
[2025-05-07] VITALS (28 sets, daily range): BP systolic 82–163; BP diastolic 53–101; BMI 19.4
[2025-05-07 00:08] LABS: Glucose - Point of Care 154 mg/dl (70-99)
[2025-05-07] MEDS: NOVOLOG FLEXPEN-MODERATE RESISTANCE 1 UNITS SC ×2 (00:09→05:24)
--- NOTE | 2025-05-07 02:29 | DOWNTIME ---
There was a [employer] Downtime on 05/07/2025 from 0100 to 05/07/2025 at 0215. Downtime documentation of patient's care, including medication administrations, has been reconciled in the electronic record per guidelines. Refer to the
patient's paper chart under the miscellaneous tab to see printed paper medication records and downtime forms.
[2025-05-07 03:33] LABS: Hematocrit 26.1 % (39.0-52.0); Hemoglobin 8.5 g/dL (13.0-18.0); Mean Corp Hgb Conc. 32.6 g/dL (33.0-37.0); Mean Corpuscular Volume 94.9 fL (80.0-94.0); Nucleated Red Blood Cells % 0 % (-); Platelet Count 155 10^3/uL (130-400); Red Cell Dist. Width 26.5 % (11.5-14.5)
[2025-05-07 03:34] LABS: APTT 111.4 Sec (23.4-35.0)
[2025-05-07 04:26] LABS: ALT (SGPT) 12 U/L (0-50); AST (SGOT) 17 U/L (17-59); Albumin 2.1 g/dl (3.5-5.0); Alkaline Phosphatase 263 U/L (38-126); Blood Urea Nitrogen 54 mg/dl (9-20); Calcium 9.0 mg/dl (8.4-10.2); Carbon Dioxide 23 mmol/L (22-30); Chloride 101 mmol/L (98-107); Estimated Creatinine Clearance 28 ml/min; Glucose 171 mg/dl (70-99); Potassium 3.8 mmol/L (3.5-5.1); Sodium 132 mmol/L (135-145); Total Protein 4.9 g/dl (6.3-8.2); eGFR 27.72
--- NOTE | 2025-05-07 04:51 | PTCARENOTE ---
assumed care of patient from previous RN. Patient remained unresponsive for most of shift. Arousable to pain. Changed patient sacral wound dressing and repacked. FMS still in place. Heparin gtt infusing, checking ptts per protocol. assessment
charted. care on going.
[2025-05-07] MEDS: LOPRESSOR 5 MG IV ×3 (05:24→23:45)
[2025-05-07] MEDS: ZOSYN 50 IV ×3 (05:24→21:19)
[2025-05-07 05:34] LABS: Glucose - Point of Care 164 mg/dl (70-99)
--- NOTE | 2025-05-07 07:42 | W.PN.ID1 ---
Date of Service
Date of Service: May 07, 2025
Today's Communication
Continue antibiotics.
Assessment / Plan
Bacteremia
- 04/23 blood cx's blood culture with gram-negative rods, but could not speciate.
- 04/23 CXR: mild opacity RLL atelectasis vs PNA
- 04/26/25 blood cx's with Klebsiella aerogenes and Proteus vulgaris. These organisms were also recovered from the unstageable sacral decubiti.
-04/23 Sacral wound polymicrobial growth, including Proteus, Klebsiella, VRE (amp resistant) and an additional strep species
- Potential sources of bacteremia include sacral wound, HD line.
Fever - intermittent
Leukocytosis
Suspected mitral valve vegetation
- Given recent bacteremia, there is high probability that if truly a vegetation it is infected.
Encephalopathy; ongoing
Hx VRE / Klebsiella infection 2* HD cath CLABSI (at OSH)
- Previously on dapto / cefepime when arrived from nursing facility.
- Completed course of therapy
Unstageable sacral wound
Penile dermal necrosis
Vascular dementia
P A-fib (on Eliquis)
ESRD�HD (MWF)
DM
PAD
CHF
Anxiety/depression
Recommendations:
Most recent sacral cultures from 04/30 now reveal presence of VRE (amp resistant). Will reinitiate a short course of daptomycin. Follow CK while on dapto. Hold statin.
Continue local care to sacral wound. Progressive necrosis noted.
Continue Zosyn (d#11) for today. Continue dapto.
Overall prognosis exceedingly poor to nonexistent.
Patient with nonexistent wound healing capacity given underlying cachexia, low albumin and protein stores. Progressive dermal gangrene of sacral area is evidence of this.
Chart reviewed. Following Neurological second opinion with a physician at [facility], family now leaning towards hospice. Will be meeting with hospice nurse in the next 24 hours.
Ongoing aggressive care serves only to prolong the patient's suffering and inevitable demise. Hopefully family can focus on comfort measures.
����������������������������������������������������������
Chief Complaint
-: Fever, Bacteremia and Other (Change in mental status, failure to thrive)
Subjective / Review of Systems
Patient seen and examined. No significant changes overnight
Review of Systems: No Fever
Vital Signs / Physical Exam
Vital Signs
Vital Signs
Temp Pulse Resp BP Pulse Ox
96.9 F L 70 9 149/76 95
05/07/25 03:00 05/07/25 05:24 05/07/25 04:00 05/07/25 05:24 05/06/25 21:42
Physical Exam
Constitutional: Acutely Ill, Chronically Ill and Cachetic
Eyes: Sclera Anicteric
Cardiovascular: S1/S2; Negative S3/S4
Pulmonary: Non Labored; Negative Wheezes or Rales
Gastrointestinal: Soft, Non Distended and No Rebound
Extremities: Edema (Trace lower extremity); Negative Cyanosis or Erythema
Wound: Other (Sacral wound dressed.)
Neurological: Other (Arousable to touch. Nonverbal.)
Psychological: Calm
Lines: CVP (Left IJ) and HD Cath (Left ACW)
Objective Data
Lab Data
Lab Results
05/07/25 03:11
05/07/25 03:11
PT 19.6 Sec (11.4-14.6) H 04/24/25 05:43
INR 1.60 04/24/25 05:43
APTT 111.4 Sec (23.4-35.0) H 05/07/25 03:11
Estimated Creat Clear 28 ml/min 05/07/25 03:11
Lactic Acid Cancelled 04/10/25 14:15
Total Bilirubin 0.7 mg/dl (0.2-1.3) 05/07/25 03:11
AST 17 U/L (17-59) 05/07/25 03:11
ALT 12 U/L (0-50) 05/07/25 03:11
Alkaline Phosphatase 263 U/L (38-126) H 05/07/25 03:11
Most recent labs reviewed.
Micro Results:
04/28/25 03:18 Blood Culture - Final
Blood/Venous Klebsiella aerogenes
Gram Stain - Final
04/26/25 11:09 Blood Culture - Final
Blood/Venous Klebsiella aerogenes
Gram Stain - Final
04/26/25 10:15 Blood Culture - Final
Blood/Venous Proteus vulgaris
Klebsiella aerogenes
Gram Stain - Final
04/30/25 13:16 Wound Culture - Final
Sacral Enterococcus faecium - VRE
Klebsiella aerogenes
Proteus vulgaris
Gram Stain - Final
04/30/25 13:16 Anaerobic Culture - Final
Sacral
04/29/25 16:56 Blood Culture - Final
Blood/Venous No Growth - Final Report
04/29/25 15:06 Blood Culture - Final
Blood/Venous No Growth - Final Report
04/28/25 03:23 Blood Culture - Final
Blood/Venous No Growth - Final Report
04/23/25 14:38 Blood Culture - Final
Blood/Venous Gram negative bacilli
Gram Stain - Final
04/23/25 18:00 Wound Culture - Final
Sacral Proteus vulgaris
Klebsiella aerogenes
Enterococcus faecalis - VRE
Streptococcus species
Gram Stain - Final
04/29/25 04:10 C. difficile GDH Antigen & Toxins - Final
Feces/Stool Negative for toxigenic C.difficile
04/23/25 18:00 Blood Culture - Final
Blood/Venous No Growth - Final Report
04/10/25 12:30 Blood Culture - Final
Blood/Venous No Growth - Final Report
04/10/25 10:12 Blood Culture - Final
Blood/Venous No Growth - Final Report
04/13/25 14:55 C. difficile GDH Antigen & Toxins - Final
Feces/Stool Negative for toxigenic C.difficile
04/11/25 04:12 MRSA Screen - Final
Nose Staph aureus MRSA
Imaging:
04/30/2025 ECHO (ALENA): EF approximately 60%. Mitral valve with a small mobile echodensity on the atrial side of the mitral annulus. Echodensity is bright and mobile and may be part of the mitral annular calcification, but cannot exclude vegetation.
Please see full dictation for additional detail.
04/11/2025 ECHO (TTE): technically difficult study. EF approximate 60%. Aortic sclerosis noted. Mitral valve is thickened with dense mitral annular calcification. Adequate mitral valve leaflet excursion noted. Please see full dictation for
additional detail.
04/15/2025 CT abdomen/pelvis with contrast: rectum shows concentric wall thickening compatible with some form of proctitis. Perirectal inflammatory stranding is noted, but no signs of free fluid or drainable collection. Bones are diffusely
demineralized. Osseous destructive process at T8-T9. Recent fracture of the greater trochanter of the right femur is noted. Please see full dictation for additional detail.
04/09/2025 MRI brain without contrast: There are small foci of restricted diffusion involving the bilateral frontoparietal white matter, the left frontal white matter more anteriorly in the right basal ganglia consistent with acute/subacute
infarctions. These may be embolic in nature given the multivessel territory. Mild atrophy with sequelae of moderate chronic small vessel ischemic disease.
Prominent blooming artifact along the left paramedian parietal lobe which is likely sequelae of prior hemorrhage/hematoma.
[2025-05-07] MEDS: HEPARIN 25000 UNITS/250 ML IV (08:04)
--- NOTE | 2025-05-07 08:44 | W.PN.HOSP.TC ---
Today's Communication/Plan
-
Continue antibiotics, anticoagulation, fluids
HD
Discuss hospice with family
Assessment / Plan
Assessment / Plan
59 y/o patient had a prolonged hospitalization at [facility] January 11, 2025 to March 17, 2025 for intractable back pain, catheter associated infection, Klebsiella bacteremia. On long-term IV antibiotics cefepime and daptomycin with HD here
for acute change in mental status. Patient was obtunded on arrival and hypotensive. Baseline intermittently confused and bedbound since November 2024 per POA. Able to talk to sister on the phone at baseline.
CT Head: No acute intracranial abnormality noted.There are mild/moderate periventricular and subcortical white matter hypodensities which are nonspecific, however likely sequelae of chronic small vessel ischemic disease.
EEG 04/11/2025: Diffuse cortical dysfunction without focal abnormality. No seizures activity.
Echo 04/11/2025: TDS. EF 60-65%, no RWMA.
MRI brain 04/13/25: There are small foci of restricted diffusion involving the bilateral frontoparietal white matter, the left frontal white matter more anteriorly in the right basal ganglia consistent with acute/subacute infarctions. These may be
embolic in nature given the multivessel territory. Mild atrophy with sequelae of moderate chronic small vessel ischemic disease. Prominent blooming artifact along the left paramedian parietal lobe which is likely sequelae of prior
hemorrhage/hematoma.
CT A/P w/IV contrast 04/15/25: Limited exam, anasarca, splenomegaly, atrophic bilateral kidneys, proctitis indeterminate etiology, diffuse wall thickening of the urinary bladder outlet obstruction without source neurogenic bladder. Small focus of
gas in the bladder. Recent fracture of greater trochanter of right femur. Osseous destructive process of the T8-T9. Abnormal lucent and sclerotic appearance of the bones likely renal osteodystrophy
R Hip x-ray 04/17/25: Findings suggesting subacute fracture of the right greater trochanter.
CXR 04/23: Mild pulmonary vascular congestion. Mild hazy opacity in the right lung base, which could represent atelectasis or pneumonia.
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 However, if there is no history of clot in this region, early thrombus cannot be excluded. Clinical correlation recommended
#Acute/subacute CVAs :
-MRI brain above, likely embolic in nature - likely valve vegetation
-Discussed case with Director of Neurology at [facility] Dr. Araujo and he stated regardless of CVA, patient is a good candidate for hospice and has little change of meaningful recovery.
# Mitral valve vegetation
-Noted on ALENA on 04/30
-Could be source of embolic stroke
-6 week course of antibiotics per ID - currently on zosyn
# Unstageable necrotic sacral wound -debridement on 04/30/25
- Post op day 6 sacral debridement
- Wound culture revealed klebsiella, proteus vulgaris and enterococcus species
- No granulation tissue per wound care - worsening with progressive dermal gangrene - rectal tube placed to protect wound from ongoing diarrhea - poor prognosis
#Right hand swelling
- Increased from before. Known clot in right hand. Warm compress
#Acute metabolic encephalopathy
-Multifactorial due to hypotension, polypharmacy, hypovolemia, (possibly) acute/subacute CVAs, and likely vascular dementia
-started on IV Synthroid, endocrine saw in c/s
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
-EEG without seizure activity
-Cont to hold gabapentin/Haldol
-Dobhoff placed on 04/18/25 for feeds - replaced 04/28/25 because it got clogged - length adjusted from 80 to 65 per previous as night team was concerned with length - repeat x-ray good position
-As pt's sister wants to continue aggressive care, GI consulted for PEG placement - pressure wound from dobhoff noted - Family decided against PEG tube. Dobhoff was removed 05/05 and started on D5 1/2 NS low rate - discussed with nephrology.
#Febrile
#H/O VRE and Klebsiella bacteremia:
-admitted on daptomycin/cefepime and transitioned to IV Zosyn per ID. Now off abx as per ID as d/c records indicate completion of antibiotics at [place] and unclear as to why they were started at [facility]. Cultures were negative and pt was
afebrile.
-04/23/25AM temp 101.2 F. Septic w/u with BCxs, chest x-ray. Abx ordered but stopped by ID.
-Zosyn started 04/26/2025 to cover for positive blood cultures with klebsiella and proteus vulgaris. Daptomycin added with dialysis 05/05 for VRE growth from sacral wound cultures - No PO access so no statin regardless
-Infectious disease following
#Pancytopenia:
-anemia likely secondary to chronic kidney disease likely worsened by prior daptomycin treatment
-BMBx and MM work up was done at [place] revealing no BM or genetic mutations
-Heme/onc appreciated for possible eval for TTP, no TTP as no schistocytes and normal LDH
-Status post 2 units of PRBCs this admission
#Anxiety/depression
-Psychiatric valuation appreciated. BuSpar discontinued.
-Taper off lexapro per psych - off lexapro with no change in mental status.
#Lupus anticoagulant positive likely contributing to hypercoagulable state. Heparin bridge started. Bridged to warfarin once PEG tube is placed - now that there is no PEG, remain on heparin drip until family decides to move towards hospice or not.
#Hypothyroidism - repeat TSH 14.4 and free T4 0.72. Okay to transition from IV levothyroxine 75 to PO 75 per endocrinology - shaun out IV 50 levo daily.
#Elevated troponin, nonischemic myocardial injury and due to underlying ESRD
#Chronic HFpEF: cont BB - IV
#ESRD: cont HD M/W/F, renal following
#PAF: Cont BB/heparin drip
#? Metastatic disease: Hospital records from [place] revealed concerns for metastatic disease after MRI of spine done. Some proctocolitis of bowels noted on imaging as well. CT A/P revealed no obvious metastatic disease
#Diarrhea: C diff NEG 04/13, c.diff (-) 04/29
#R greater trochanteric femur fracture: No surgical intervention required per ortho.
#Essential HTN: BB with holding parameters
#HLD: Cont statin
#Hypokalemia, replete prn
#Hypophosphatemia, replete
#Bedbound since November 2024 with intermittent confusion at baseline
#DM2: SSI/accuchecks
#Concern for vascular dementia
#Amputation of the left toes 1-3
#Osseous destruction of T8-T9
#Splenomegaly
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
#Wounds unstageable
-Unstageable sacral pressure injury
-stage I B/L heel pressure injury
-wound care
-Tylenol 1,000mg TID for pain - IV tylenol. No rectal access with ongoing diarrhea and rectal tube placed
# DVT prophylaxis-heparin
# DNR Status now
Long conversation with family yesterday and decided against PEG. Further discussions with hospice nurse scheduled for 05/07 at 11am. Second opinion by neurologist at [place] was also provided who agreed this patient is hospice appropriate. He has
non-existent healing capacity given underlying cachexia, low albumin and protein stores. Progressive dermal gangrene in the sacral area with no granulation tissue is evident of this. Medical team believes that ongoing aggressive care will only
prolong the patient's suffering and inevitable demise. Today, will discuss hospice with family over conference call with hospice nurse.
Anticipated Discharge: > 48 hours
Subjective/Interval History
-
Date of Service: May 07, 2025
Remains obtunded. Appears in pain.
Objective Data
-
Labs:
Laboratory Results
05/06/25 05/07/25 05/07/25
20:31 03:11 10:00
WBC 12.8 H
Hgb 8.5 L
Hct 26.1 L
Plt Count 155
APTT 124.1 H 111.4 H Pending
Sodium 132 L
Potassium 3.8
Chloride 101
Carbon Dioxide 23
BUN 54 H
Creatinine 2.6 H
Glucose 171 H
Calcium 9.0
Total Bilirubin 0.7
AST 17
ALT 12
Alkaline Phosphatase 263 H
Vital Signs:
Vital Signs
Temp Pulse Resp BP Pulse Ox
96.9 F L 70 9 149/76 95
05/07/25 03:00 05/07/25 05:24 05/07/25 04:00 05/07/25 05:24 05/06/25 21:42
I&O
05/06/25 05/07/25 05/08/25
06:59 06:59 06:59
Intake Total 720 / 720
Balance 720 / 720
Review of Systems
-
Unable to obtain full review of systems at this time due to: Dementia and Acuity
Physical Exam
-
General: Pain, Appears Chronically Ill and Cachectic
Respiratory: Clear to Auscultation
Cardiac: Regular Rhythm and S1/S2
GI: Soft, Nontender, Nondistended and Normal Bowel Sounds
Musculoskeletal: Other (RUE edema >left )
[2025-05-07] MEDS: NSS (PRESERVATIVE FREE) 10 ML IV (09:43)
[2025-05-07] MEDS: PROTONIX IV 40 MG IV (09:43)
[2025-05-07] MEDS: DAKIN'S SOLUTION 0.125% 1/4 STRENGTH 473 ML TOPICAL (09:43)
[2025-05-07] MEDS: SANTYL OINTMENT 1 APPLIC TOPICAL (09:44)
[2025-05-07] MEDS: MYCOSTATIN ORAL SUSPENSION 5 ML PO ×4 (09:44→21:19)
[2025-05-07] MEDS: DESENEX/MITRAZOL/ZEASORB 1 APPLIC TOPICAL ×2 (09:44→21:19)
[2025-05-07] MEDS: OFIRMEV 100 IV (09:44)
--- NOTE | 2025-05-07 09:50 | W.PN.UPDATE ---
Update Note
Progress Note Update
I saw and evaluated the patient. I reviewed the resident�s note and agree with findings and plan as documented in the resident�s note.
Pt nonverbal.
Gen: NAD, NCAT, appears chronically ill
Eyes: EOMI, PERRLA, no scleral icterus.
Neck: supple.
CV: remains RRR, +S1/S2, no m/r/g.
Resp: CTAB anteriorly, no rales, wheezes, or rhonchi.
Abd: remains +BS, soft, NT, ND
Skin: No rashes.
Neuro: CN 2-12 intact, non-focal.
Psych: calm
04/28/25 03:18 Blood/Venous Blood Culture - Final
Klebsiella aerogenes
04/28/25 03:18 Blood/Venous Gram Stain - Final
04/26/25 11:09 Blood/Venous Blood Culture - Final
Klebsiella aerogenes
04/26/25 11:09 Blood/Venous Gram Stain - Final
04/26/25 10:15 Blood/Venous Blood Culture - Final
Proteus vulgaris
Klebsiella aerogenes
04/26/25 10:15 Blood/Venous Gram Stain - Final
04/30/25 13:16 Sacral Wound Culture - Final
Enterococcus faecium - VRE
Klebsiella aerogenes
Proteus vulgaris
04/30/25 13:16 Sacral Gram Stain - Final
04/30/25 13:16 Sacral Anaerobic Culture - Final
04/29/25 16:56 Blood/Venous Blood Culture - Final
No Growth - Final Report
04/29/25 15:06 Blood/Venous Blood Culture - Final
No Growth - Final Report
04/28/25 03:23 Blood/Venous Blood Culture - Final
No Growth - Final Report
04/23/25 14:38 Blood/Venous Blood Culture - Final
Gram negative bacilli
04/23/25 14:38 Blood/Venous Gram Stain - Final
04/23/25 18:00 Sacral Wound Culture - Final
Proteus vulgaris
Klebsiella aerogenes
Enterococcus faecalis - VRE
Streptococcus species
04/23/25 18:00 Sacral Gram Stain - Final
04/29/25 04:10 Feces/Stool C. difficile GDH Antigen & Toxins - Final
Negative for toxigenic C.difficile
04/23/25 18:00 Blood/Venous Blood Culture - Final
No Growth - Final Report
04/10/25 12:30 Blood/Venous Blood Culture - Final
No Growth - Final Report
04/10/25 10:12 Blood/Venous Blood Culture - Final
No Growth - Final Report
04/13/25 14:55 Feces/Stool C. difficile GDH Antigen & Toxins - Final
Negative for toxigenic C.difficile
04/11/25 04:12 Nose MRSA Screen - Final
Staph aureus MRSA
MRI brain 04/13/25: Small foci of restricted diffusion involving the bilateral frontoparietal white matter, the left frontal white matter more anteriorly in the right basal ganglia consistent with acute/subacute infarctions. These may be embolic in
nature given the multivessel territory. Mild atrophy with sequelae of moderate chronic small vessel ischemic disease. Prominent blooming artifact along the left paramedian parietal lobe which is likely sequelae of prior hemorrhage/hematoma.
Acute/subacute CVAs :
-MRI brain above, likely embolic in nature
-Heparin gtt
Acute metabolic encephalopathy:
-Multifactorial due to hypotension, polypharmacy, hypovolemia, acute/subacute CVAs, and likely vascular dementia
-started on Synthroid, endocrine saw in c/s
-EEG without seizure activity
-Cont to hold gabapentin/Haldol
-Dobhoff placed on 04/18/25 for feeds, replaced again due to blockage
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
-admitted on daptomycin/cefepime and transitioned to IV Zosyn per ID. Then was discontinued prior as per ID as d/c records indicate completion of antibiotics at [place] and unclear as to why they were started at [facility].
-Klebsiella and Proteus vulgaris bacteremia noted on blood culture 04/26/2025. Repeat BCxs from 04/28/2025 with Klebsiella. Sacral WCx 04/30 with VRE, klebsiella, and Proteus. likely source is sacral decubitus ulcer which has been debrided
-ALENA 04/30/25 showed small mobile MV density, cannot exclude vegetation
-Will need to be treated as endocarditis with 6 weeks abx
-ID following
-currently on Dapto/Zosyn
F/E/N:
-after meeting with the patient's sister on 05/05 the decision has been made to not pursue PEG tube. The patient's sister is agreeable to having the Dobbhoff tube removed and IV fluids only at this time.
-DHT removed 05/05/25
Pancytopenia:
-anemia likely secondary to chronic kidney disease
-BMBx and MM work up was done at [place] revealing no BM or genetic mutations
-Heme/onc appreciated for possible eval for TTP, no TTP as no schistocytes and normal LDH, antibody panels for other causes of hypercoagulable states pending
-s/p 2U pRBCs this admission
-Thrombocytopenia and leukopenia have resolved
Other problems:
Lupus anticoagulant positive likely contributing to hypercoagulable state. Heparin gtt restarted.
Hypothyroidism: cont Synthroid
Elevated troponin, nonischemic myocardial injury and due to underlying ESRD
Chronic HFpEF: cont BB
ESRD: cont HD M/W/F, renal following
PAF: Cont BB/heparin drip
Anxiety/depression: seen by psych
? Metastatic disease: Hospital records from [place] revealed concerns for metastatic disease after MRI of spine done. Some proctocolitis of bowels noted on imaging as well. CT A/P revealed no obvious metastatic disease
Diarrhea: C diff NEG
R greater trochanteric femur fracture: No surgical intervention required per ortho.
Essential HTN: BB with holding parameters
HLD: Cont statin
Hypokalemia, replete PRN
Hypophosphatemia
Hyponatremia, resolved
Bedbound since November 2024 with intermittent confusion at baseline
DM2: SSI/accuchecks
Likely vascular dementia
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
Osseous destruction of T8-T9
Splenomegaly
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
Wounds:
-Stage IV sacral pressure injury, wound debridement done by surgeon on 04/30/25: Necrotic skin subcutaneous tissue muscle and fascia debrided, There was also 6cm space in the ischial area with malodorous pus. Exposed sacral bone.
-stage I B/L heel pressure injury
-wound care and change of position.
-Tylenol 1,000mg TID for pain
-Oxycodone PRN
Overall care is futile. At this point the patient's family does not want PEG tube placement. They will likely transition the patient to hospice.
DNR/Heparin gtt
[2025-05-07 10:12] LABS: APTT 68.7 Sec (23.4-35.0)
[2025-05-07] MEDS: HEPARIN 2600 UNITS IV (10:20)
--- NOTE | 2025-05-07 11:55 | HOSPNOTE ---
Family meeting completed. The family will call back with a decision about hospice. The plan for today is continue with scheduled dialysis, keep giving Tylenol for pain, keep IV fluids and Heparin drip. Once a decision is made I will reach out to
Attending and if they are in agreement family will be here Monday and the plan would be inpatient hospice. More information to follow.
[2025-05-07] MEDS: LOPRESSOR IV (12:09)
[2025-05-07 12:49] LABS: Glucose - Point of Care 137 mg/dl (70-99)
[2025-05-07] MEDS: NOVOLOG FLEXPEN-MODERATE RESISTANCE SC ×3 (13:04→23:44)
[2025-05-07] MEDS: MANNITOL 25% 12.5 GRAMS IV ×2 (13:30→14:50)
[2025-05-07] MEDS: RETACRIT 10000 UNITS IV (13:33)
--- NOTE | 2025-05-07 14:52 | PN.CDI ---
CDI
- -
CDI:
Physician Documentation Request
Admit Date: 04/10/25 15:55
Dear Doctor Placido,
Patient admitted with CVA.
05/07 PN, 'Mitral valve vegetation-Noted on ALENA on 04/30....Could be source of embolic stroke....6 week course of antibiotics per ID - currently on Zosyn.'
05/07 ID note, 'Suspected mitral valve vegetation- Given recent bacteremia, there is high probability that if truly a vegetation it is infected.'
Please provide in your note the suspected diagnosis associated with the above findings:
Acute infective endocarditis
Mitral valve vegetation only
Only
Use of terms such as suspected, likely, concern for, or probable (associated with a specific diagnosis that is being evaluated, monitored, or treated as if it exists) are acceptable and can be coded in the inpatient setting, when documented at the
time of discharge.
Thank you,
Verito ENG,RN,CCDS
CDI Specialist
Available via tiger text
Please use your independent medical judgment in providing your response.
--- NOTE | 2025-05-07 14:53 | W.PN.NEPH.HD ---
Assessment
-
Seen on HD. no new issues. VSS, access ok.
IVF light. no PEG
Progress Note - Hemodialysis
-
Date of Service: May 07, 2025
Duration: 30 minutes and 3 hours
Potassium Bath: 4
Calcium Bath: 2.5
Opti-Dialyzer: 160
Ultrafiltration: Other (2kg)
Blood Flow: 400
Dialysate Flow: 600
Heparin: 0
EPO: [id number] units
--- NOTE | 2025-05-07 15:13 | PN.CDI ---
CDI
- -
CDI:
Physician Documentation Request
Admit Date: 04/10/25 15:55
Dear Doctor Placido,
Patient admitted with CVA.
05/07 PN, 'Mitral valve vegetation-Noted on ALENA on 04/30....Could be source of embolic stroke....6 week course of antibiotics per ID - currently on Zosyn.'
05/07 ID note, 'Suspected mitral valve vegetation- Given recent bacteremia, there is high probability that if truly a vegetation it is infected.'
Please provide in your note the suspected diagnosis associated with the above findings:
Acute infective endocarditis
Mitral valve vegetation only
Other
Use of terms such as suspected, likely, concern for, or probable (associated with a specific diagnosis that is being evaluated, monitored, or treated as if it exists) are acceptable and can be coded in the inpatient setting, when documented at the
time of discharge.
Thank you,
Verito ENG,RN,CCDS
CDI Specialist
Available via tiger text
Please use your independent medical judgment in providing your response.
--- NOTE | 2025-05-07 15:30 | W.PN.UPDATE ---
Update Note
Progress Note Update
The family met over conference call today with the CM and hospice nurse. Initially they stated they wanted to discuss hospice more as a family. Later in the day, Geovanni texted Rachel the CM that they will be pursing hospice tomorrow after the family
comes up to see him. They will be here in person around noon. Plan would be to transition to inpatient hospice at that time.
--- NOTE | 2025-05-07 15:49 | CM ---
Following up on Patient.
Meeting occurred with Hospice the following people:
-Assembler Seat Lisa
-Sister- Geovanni
-Sister- Megan
-Sister- Meenakshi
-Daughter- Kamryn
-Daughter- Esha
-Syrup Mixer Helper- Rachel
-Firefighter Marine- Yaneth
Hospice was explained well by Lisa, questions answered, other notions of making a decision before they cannot anymore, what would he want if he was aware of this, and that they can be here to spend time/ say goodbye while on hospice was brought
up by DEO Ramos as well as Yaneth acknowledging/ help processing their grieve.
In the end, the family retired to discuss then texted by Sister Geovanni to DEO Ramos that they (not sure who all will be here) want to start Hospice tomorrow at noon while present. DEO Ramos acknowledged their tough decision via text and provided
emotional support in which they all were thankful.
Medical Team aware of the time table tomorrow as well as Hospice & engineering assistant.
PLAN: Start Hospice tomorrow.
[2025-05-07 16:52] LABS: APTT 118.3 Sec (23.4-35.0)
--- NOTE | 2025-05-07 17:16 | PTCARENOTE ---
Pt's assessment and care as documented. NSR on tele monitor. Heparin gtt infusing as ordered, see worklist. Tolerated HD. Q2T and safe environment maintained.
[2025-05-07] MEDS: LEVOTHROID 50 MCG IV (17:27)
[2025-05-07] MEDS: D5/0.45%NACL 1000 IV (17:27)
[2025-05-07] MEDS: CUBICIN 14 MG IV (17:28)
[2025-05-07 18:02] LABS: Glucose - Point of Care 108 mg/dl (70-99)
[2025-05-07 23:09] LABS: APTT 89.5 Sec (23.4-35.0)
[2025-05-07 23:55] LABS: Glucose - Point of Care 147 mg/dl (70-99)
[2025-05-08] VITALS (22 sets, daily range): BP systolic 108–157; BP diastolic 56–94; BMI 19.3
[2025-05-08] MEDS: HEPARIN 25000 UNITS/250 ML IV ×2 (02:31→18:42)
[2025-05-08] MEDS: NOVOLOG FLEXPEN-MODERATE RESISTANCE 1 UNITS SC ×3 (05:21→17:56)
[2025-05-08] MEDS: ZOSYN 50 IV ×3 (05:21→21:17)
[2025-05-08] MEDS: LOPRESSOR 5 MG IV ×3 (05:21→17:56)
[2025-05-08 05:42] LABS: Hematocrit 25.5 % (39.0-52.0); Hemoglobin 8.5 g/dL (13.0-18.0); Mean Corp Hgb Conc. 33.3 g/dL (33.0-37.0); Mean Corpuscular Volume 94.8 fL (80.0-94.0); Nucleated Red Blood Cells % 0.2 % (-); Platelet Count 173 10^3/uL (130-400); Red Cell Dist. Width 25.6 % (11.5-14.5)
[2025-05-08 05:46] LABS: APTT 75.9 Sec (23.4-35.0)
[2025-05-08 06:14] LABS: ALT (SGPT) 12 U/L (0-50); AST (SGOT) 16 U/L (17-59); Albumin 2.1 g/dl (3.5-5.0); Alkaline Phosphatase 256 U/L (38-126); Blood Urea Nitrogen 29 mg/dl (9-20); Calcium 8.1 mg/dl (8.4-10.2); Carbon Dioxide 22 mmol/L (22-30); Chloride 101 mmol/L (98-107); Estimated Creatinine Clearance 41 ml/min; Glucose 157 mg/dl (70-99); Potassium 2.7 mmol/L (3.5-5.1); Sodium 133 mmol/L (135-145); Total Protein 5.0 g/dl (6.3-8.2); eGFR 43.09
--- NOTE | 2025-05-08 07:26 | W.PN.HOSP.TC ---
Today's Communication/Plan
-
Sign hospice paperwork with family
Replete K
Continue antibiotics and heparin for now
IV tylenol for pain
Assessment / Plan
Assessment / Plan
59 y/o patient had a prolonged hospitalization at [facility] January 11, 2025 to March 17, 2025 for intractable back pain, catheter associated infection, Klebsiella bacteremia. On long-term IV antibiotics cefepime and daptomycin with HD here
for acute change in mental status. Patient was obtunded on arrival and hypotensive. Baseline intermittently confused and bedbound since November 2024 per POA. Able to talk to sister on the phone at baseline.
CT Head: No acute intracranial abnormality noted.There are mild/moderate periventricular and subcortical white matter hypodensities which are nonspecific, however likely sequelae of chronic small vessel ischemic disease.
EEG 04/11/2025: Diffuse cortical dysfunction without focal abnormality. No seizures activity.
Echo 04/11/2025: TDS. EF 60-65%, no RWMA.
MRI brain 04/13/25: There are small foci of restricted diffusion involving the bilateral frontoparietal white matter, the left frontal white matter more anteriorly in the right basal ganglia consistent with acute/subacute infarctions. These may be
embolic in nature given the multivessel territory. Mild atrophy with sequelae of moderate chronic small vessel ischemic disease. Prominent blooming artifact along the left paramedian parietal lobe which is likely sequelae of prior
hemorrhage/hematoma.
CT A/P w/IV contrast 04/15/25: Limited exam, anasarca, splenomegaly, atrophic bilateral kidneys, proctitis indeterminate etiology, diffuse wall thickening of the urinary bladder outlet obstruction without source neurogenic bladder. Small focus of
gas in the bladder. Recent fracture of greater trochanter of right femur. Osseous destructive process of the T8-T9. Abnormal lucent and sclerotic appearance of the bones likely renal osteodystrophy
R Hip x-ray 04/17/25: Findings suggesting subacute fracture of the right greater trochanter.
CXR 04/23: Mild pulmonary vascular congestion. Mild hazy opacity in the right lung base, which could represent atelectasis or pneumonia.
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 However, if there is no history of clot in this region, early thrombus cannot be excluded. Clinical correlation recommended
#Acute/subacute CVAs :
-MRI brain above, likely embolic in nature - likely valve vegetation
-On heparin drip
# Mitral valve vegetation
-Noted on ALENA on 04/30
-Could be source of embolic stroke
-6 week course of antibiotics per ID - currently on zosyn
# Unstageable necrotic sacral wound -debridement on 04/30/25
- Wound culture revealed klebsiella, proteus vulgaris and enterococcus species
- No granulation tissue per wound care - worsening with progressive dermal gangrene - rectal tube placed to protect wound from ongoing diarrhea - poor prognosis
#Right hand swelling
- Increased from before. Known superficial clot in right hand. Warm compress
#Acute metabolic encephalopathy
-Multifactorial due to hypotension, polypharmacy, hypovolemia, (possibly) acute/subacute CVAs, and likely vascular dementia
-started on IV Synthroid, endocrine saw in c/s
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
-EEG without seizure activity
-Cont to hold gabapentin/Haldol
-Dobhoff placed on 04/18/25 for feeds - replaced 04/28/25 because it got clogged - length adjusted from 80 to 65 per previous as night team was concerned with length - repeat x-ray good position
-As pt's sister wants to continue aggressive care, GI consulted for PEG placement - pressure wound from dobhoff noted - Family decided against PEG tube. Dobhoff was removed 05/05 and started on D5 1/2 NS low rate - discussed with nephrology.
#Febrile
#H/O VRE and Klebsiella bacteremia:
-admitted on daptomycin/cefepime and transitioned to IV Zosyn per ID. Now off abx as per ID as d/c records indicate completion of antibiotics at [place] and unclear as to why they were started at [facility]. Cultures were negative and pt was
afebrile.
-04/23/25AM temp 101.2 F. Septic w/u with BCxs, chest x-ray. Abx ordered but stopped by ID.
-Zosyn started 04/26/2025 to cover for positive blood cultures with klebsiella and proteus vulgaris. Daptomycin added with dialysis 05/05 for VRE growth from sacral wound cultures - No PO access so no statin regardless
-Infectious disease following
#Pancytopenia:
-anemia likely secondary to chronic kidney disease likely worsened by prior daptomycin treatment
-BMBx and MM work up was done at [facility] revealing no BM or genetic mutations
-Heme/onc appreciated for possible eval for TTP, no TTP as no schistocytes and normal LDH
-Status post 2 units of PRBCs this admission
#Anxiety/depression
-Psychiatric valuation appreciated. BuSpar discontinued.
-Taper off lexapro per psych - off lexapro with no change in mental status.
#Lupus anticoagulant positive likely contributing to hypercoagulable state. Heparin bridge started. Now that there is no dobhoff, remain on heparin drip until family decides to move towards hospice or not.
#Hypothyroidism - repeat TSH 14.4 and free T4 0.72. Okay to transition from IV levothyroxine 75 to PO 75 per endocrinology - shaun out IV 50 levo daily.
#Elevated troponin, nonischemic myocardial injury and due to underlying ESRD
#Chronic HFpEF: cont BB - IV
#ESRD: cont HD M/W/F, renal following
#PAF: Cont BB/heparin drip
#? Metastatic disease: Hospital records from [facility] revealed concerns for metastatic disease after MRI of spine done. Some proctocolitis of bowels noted on imaging as well. CT A/P revealed no obvious metastatic disease
#Diarrhea: C diff NEG 04/13, c.diff (-) 04/29
#R greater trochanteric femur fracture: No surgical intervention required per ortho.
#Essential HTN: BB with holding parameters
#HLD: Cont statin
#Hypokalemia, replete prn
#Hypophosphatemia, replete
#Bedbound since November 2024 with intermittent confusion at baseline
#DM2: SSI/accuchecks
#Concern for vascular dementia
#Amputation of the left toes 1-3
#Osseous destruction of T8-T9
#Splenomegaly
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
#Wounds unstageable
-Unstageable sacral pressure injury
-stage I B/L heel pressure injury
-wound care
-Tylenol 1,000mg TID for pain - IV tylenol. No rectal access with ongoing diarrhea and rectal tube placed
# DVT prophylaxis-heparin
# DNR Status
Today the family will be coming to see Mr. Mondragon in person and sign the paperwork for inpatient hospice.
Anticipated Discharge: > 48 hours
Subjective/Interval History
-
Date of Service: May 08, 2025
Remains obtunded. Appears to be grimacing in pain. Foul odor noted in room. Per nursing, the wound has gotten increasingly worse.
Objective Data
-
Labs:
Laboratory Results
05/07/25 05/08/25
22:51 05:18
WBC 14.9 H
Hgb 8.5 L
Hct 25.5 L
Plt Count 173
APTT 89.5 H 75.9 H
Sodium 133 L
Potassium 2.7 L* D
Chloride 101
Carbon Dioxide 22
BUN 29 H
Creatinine 1.8 H
Glucose 157 H
Calcium 8.1 L
Total Bilirubin 1.1
AST 16 L
ALT 12
Alkaline Phosphatase 256 H
Vital Signs:
Vital Signs
Temp Pulse Resp BP Pulse Ox
97.6 F 85 29 134/94 95
05/08/25 03:00 05/08/25 06:00 05/08/25 06:00 05/08/25 06:00 05/07/25 21:48
I&O
05/07/25 05/08/25 05/09/25
06:59 06:59 06:59
Intake Total 720 / 720
Balance 720 / 720
Review of Systems
-
Unable to obtain full review of systems at this time due to: Dementia and Acuity
Physical Exam
-
General: Pain and Appears Chronically Ill
Respiratory: Clear to Auscultation
Cardiac: Regular Rhythm and S1/S2
GI: Soft, Nondistended and Normal Bowel Sounds
Musculoskeletal: Other (RUE edema > L )
[2025-05-08 07:32] LABS: Glucose - Point of Care 194 mg/dl (70-99)
[2025-05-08] MEDS: KCL 270 MEQ IV ×2 (07:48→13:05)
[2025-05-08] MEDS: DESENEX/MITRAZOL/ZEASORB 1 APPLIC TOPICAL ×2 (07:52→21:17)
[2025-05-08] MEDS: DAKIN'S SOLUTION 0.125% 1/4 STRENGTH 1 ML TOPICAL (07:53)
[2025-05-08] MEDS: MYCOSTATIN ORAL SUSPENSION 5 ML PO ×4 (08:43→21:17)
[2025-05-08] MEDS: PROTONIX IV 40 MG IV (08:43)
[2025-05-08] MEDS: SANTYL OINTMENT 1 APPLIC TOPICAL (08:43)
[2025-05-08] MEDS: OFIRMEV 100 IV ×2 (08:44→17:55)
[2025-05-08] MEDS: NSS (PRESERVATIVE FREE) 10 ML IV (08:44)
--- NOTE | 2025-05-08 08:59 | W.PN.UPDATE ---
Update Note
Progress Note Update
I saw and evaluated the patient. I reviewed the resident�s note and agree with findings and plan as documented in the resident�s note.
Pt nonverbal.
Gen: NAD, NCAT, appears chronically ill
Eyes: EOMI, PERRLA, no scleral icterus.
Neck: supple.
CV: continues to remain RRR, +S1/S2, no m/r/g.
Resp: remains CTAB anteriorly, no rales, wheezes, or rhonchi.
Abd: continues to remain +BS, soft, NT, ND
Skin: No rashes.
Neuro: CN 2-12 intact, non-focal.
Psych: calm
04/28/25 03:18 Blood/Venous Blood Culture - Final
Klebsiella aerogenes
04/28/25 03:18 Blood/Venous Gram Stain - Final
04/26/25 11:09 Blood/Venous Blood Culture - Final
Klebsiella aerogenes
04/26/25 11:09 Blood/Venous Gram Stain - Final
04/26/25 10:15 Blood/Venous Blood Culture - Final
Proteus vulgaris
Klebsiella aerogenes
04/26/25 10:15 Blood/Venous Gram Stain - Final
04/30/25 13:16 Sacral Wound Culture - Final
Enterococcus faecium - VRE
Klebsiella aerogenes
Proteus vulgaris
04/30/25 13:16 Sacral Gram Stain - Final
04/30/25 13:16 Sacral Anaerobic Culture - Final
04/29/25 16:56 Blood/Venous Blood Culture - Final
No Growth - Final Report
04/29/25 15:06 Blood/Venous Blood Culture - Final
No Growth - Final Report
04/28/25 03:23 Blood/Venous Blood Culture - Final
No Growth - Final Report
04/23/25 14:38 Blood/Venous Blood Culture - Final
Gram negative bacilli
04/23/25 14:38 Blood/Venous Gram Stain - Final
04/23/25 18:00 Sacral Wound Culture - Final
Proteus vulgaris
Klebsiella aerogenes
Enterococcus faecalis - VRE
Streptococcus species
04/23/25 18:00 Sacral Gram Stain - Final
04/29/25 04:10 Feces/Stool C. difficile GDH Antigen & Toxins - Final
Negative for toxigenic C.difficile
04/23/25 18:00 Blood/Venous Blood Culture - Final
No Growth - Final Report
04/10/25 12:30 Blood/Venous Blood Culture - Final
No Growth - Final Report
04/10/25 10:12 Blood/Venous Blood Culture - Final
No Growth - Final Report
04/13/25 14:55 Feces/Stool C. difficile GDH Antigen & Toxins - Final
Negative for toxigenic C.difficile
04/11/25 04:12 Nose MRSA Screen - Final
Staph aureus MRSA
MRI brain 04/13/25: Small foci of restricted diffusion involving the bilateral frontoparietal white matter, the left frontal white matter more anteriorly in the right basal ganglia consistent with acute/subacute infarctions. These may be embolic in
nature given the multivessel territory. Mild atrophy with sequelae of moderate chronic small vessel ischemic disease. Prominent blooming artifact along the left paramedian parietal lobe which is likely sequelae of prior hemorrhage/hematoma.
Acute/subacute CVAs :
-MRI brain above, likely embolic in nature
-Heparin gtt
Acute metabolic encephalopathy:
-Multifactorial due to hypotension, polypharmacy, hypovolemia, acute/subacute CVAs, and likely vascular dementia
-started on Synthroid, endocrine saw in c/s
-EEG without seizure activity
-Cont to hold gabapentin/Haldol
-Dobhoff placed on 04/18/25 for feeds, replaced again due to blockage
h/o VRE and Klebsiella bacteremia (GROUND HAND):
-admitted on daptomycin/cefepime and transitioned to IV Zosyn per ID. Then was discontinued prior as per ID as d/c records indicate completion of antibiotics at [place] and unclear as to why they were started at [facility].
-Klebsiella and Proteus vulgaris bacteremia noted on blood culture 04/26/2025. Repeat BCxs from 04/28/2025 with Klebsiella. Sacral WCx 04/30 with VRE, klebsiella, and Proteus. likely source is sacral decubitus ulcer which has been debrided
-ALENA 04/30/25 showed small mobile MV density, cannot exclude vegetation
-Will need to be treated as endocarditis with 6 weeks abx
-ID following
-currently on Dapto/Zosyn
F/E/N:
-after meeting with the patient's sister on 05/05 the decision has been made to not pursue PEG tube, DHT removed 05/05/25, cont IVFs for now
Pancytopenia:
-anemia likely secondary to chronic kidney disease
-BMBx and MM work up was done at [place] revealing no BM or genetic mutations
-Heme/onc appreciated for possible eval for TTP, no TTP as no schistocytes and normal LDH, antibody panels for other causes of hypercoagulable states pending
-s/p 2U pRBCs this admission
-Thrombocytopenia and leukopenia have resolved
Other problems:
Lupus anticoagulant positive likely contributing to hypercoagulable state. Heparin gtt restarted.
Hypothyroidism: cont Synthroid
Elevated troponin, nonischemic myocardial injury and due to underlying ESRD
Chronic HFpEF: cont BB
ESRD: cont HD M/W/F, renal following
PAF: Cont BB/heparin drip
Anxiety/depression: seen by psych
? Metastatic disease: Hospital records from [place] revealed concerns for metastatic disease after MRI of spine done. Some proctocolitis of bowels noted on imaging as well. CT A/P revealed no obvious metastatic disease
Diarrhea: C diff NEG
R greater trochanteric femur fracture: No surgical intervention required per ortho.
Essential HTN: BB with holding parameters
HLD: Cont statin
Hypokalemia, replete PRN
Hypophosphatemia
Hyponatremia, resolved
Bedbound since November 2024 with intermittent confusion at baseline
DM2: SSI/accuchecks
Likely vascular dementia
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
Osseous destruction of T8-T9
Splenomegaly
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
Wounds:
-Stage IV sacral pressure injury, wound debridement done by surgeon on 04/30/25: Necrotic skin subcutaneous tissue muscle and fascia debrided, There was also 6cm space in the ischial area with malodorous pus. Exposed sacral bone.
-stage I B/L heel pressure injury
-wound care and change of position.
-Tylenol 1,000mg TID for pain
-Oxycodone PRN
Overall care is futile. At this point the patient's family does not want PEG tube placement. They will likely transition the patient to hospice today.
DNR/Heparin gtt
--- NOTE | 2025-05-08 09:28 | HOSPNOTE ---
Patient will be admitted inpatient hospice today. Admissions was called to get hospice chart ready. Attending and CM updated with plan.
--- NOTE | 2025-05-08 09:47 | W.PN.ID1 ---
Date of Service
Date of Service: May 08, 2025
Today's Communication
Continue antibiotics pending family decision regarding hospice
Assessment / Plan
Bacteremia
- 04/23 blood cx's blood culture with gram-negative rods, but could not speciate.
- 04/23 CXR: mild opacity RLL atelectasis vs PNA
- 04/26/25 blood cx's with Klebsiella aerogenes and Proteus vulgaris. These organisms were also recovered from the unstageable sacral decubiti.
-04/23 Sacral wound polymicrobial growth, including Proteus, Klebsiella, VRE (amp resistant) and an additional strep species
- Potential sources of bacteremia include sacral wound, HD line.
Fever - intermittent
Leukocytosis
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
- Given recent bacteremia, there is high probability that if truly a vegetation it is infected.
Encephalopathy; ongoing
Hx VRE / Klebsiella infection 2* HD cath CLABSI (at [facility])
- Previously on dapto / cefepime when arrived from nursing facility.
- Completed course of therapy
Unstageable sacral wound
Penile dermal necrosis
Vascular dementia
P A-fib (on Eliquis)
ESRD�HD (MWF)
DM
PAD
CHF
Anxiety/depression
Recommendations:
Most recent sacral cultures from 04/30 with VRE (amp resistant). Continue short course of daptomycin. Follow CK while on dapto. Hold statin.
Continue local care to sacral wound. Progressive necrosis noted.
Continue Zosyn (d#12) for today. Continue dapto.
Overall prognosis exceedingly poor to nonexistent.
Patient with nonexistent wound healing capacity given underlying cachexia, low albumin and protein stores. Progressive dermal gangrene of sacral area is evidence of this.
Chart reviewed. Following Neurological second opinion with a physician at [facility], family now leaning towards hospice. Tentative family meeting with hospice later today.
Ongoing aggressive care serves only to prolong the patient's suffering and inevitable demise. Hopefully family can focus on comfort measures.
����������������������������������������������������������
Chief Complaint
-: Fever, Bacteremia and Other (Change in mental status, failure to thrive)
Subjective / Review of Systems
Patient seen and examined. No significant changes overnight.
Vital Signs / Physical Exam
Vital Signs
Vital Signs
Temp Pulse Resp BP Pulse Ox
97.9 F 85 29 134/94 95
05/08/25 07:20 05/08/25 06:00 05/08/25 06:00 05/08/25 06:00 05/07/25 21:48
Physical Exam
Constitutional: Acutely Ill, Chronically Ill and Cachetic
Eyes: Sclera Anicteric
Cardiovascular: S1/S2; Negative S3/S4
Pulmonary: Non Labored; Negative Wheezes or Rales
Gastrointestinal: Soft, Non Distended and No Rebound
Extremities: Edema (Trace lower extremity); Negative Cyanosis or Erythema
Wound: Other (Sacral wound dressed.)
Neurological: Other (Arousable to touch. Nonverbal.)
Psychological: Calm
Lines: CVP (Left IJ) and HD Cath (Left ACW)
Objective Data
Lab Data
Lab Results
05/08/25 05:18
05/08/25 05:18
PT 19.6 Sec (11.4-14.6) H 04/24/25 05:43
INR 1.60 04/24/25 05:43
APTT 75.9 Sec (23.4-35.0) H 05/08/25 05:18
Estimated Creat Clear 41 ml/min 05/08/25 05:18
Lactic Acid Cancelled 04/10/25 14:15
Total Bilirubin 1.1 mg/dl (0.2-1.3) 05/08/25 05:18
AST 16 U/L (17-59) L 05/08/25 05:18
ALT 12 U/L (0-50) 05/08/25 05:18
Alkaline Phosphatase 256 U/L (38-126) H 05/08/25 05:18
Most recent labs reviewed.
Micro Results:
04/28/25 03:18 Blood Culture - Final
Blood/Venous Klebsiella aerogenes
Gram Stain - Final
04/26/25 11:09 Blood Culture - Final
Blood/Venous Klebsiella aerogenes
Gram Stain - Final
04/26/25 10:15 Blood Culture - Final
Blood/Venous Proteus vulgaris
Klebsiella aerogenes
Gram Stain - Final
04/30/25 13:16 Wound Culture - Final
Sacral Enterococcus faecium - VRE
Klebsiella aerogenes
Proteus vulgaris
Gram Stain - Final
04/30/25 13:16 Anaerobic Culture - Final
Sacral
04/29/25 16:56 Blood Culture - Final
Blood/Venous No Growth - Final Report
04/29/25 15:06 Blood Culture - Final
Blood/Venous No Growth - Final Report
04/28/25 03:23 Blood Culture - Final
Blood/Venous No Growth - Final Report
04/23/25 14:38 Blood Culture - Final
Blood/Venous Gram negative bacilli
Gram Stain - Final
04/23/25 18:00 Wound Culture - Final
Sacral Proteus vulgaris
Klebsiella aerogenes
Enterococcus faecalis - VRE
Streptococcus species
Gram Stain - Final
04/29/25 04:10 C. difficile GDH Antigen & Toxins - Final
Feces/Stool Negative for toxigenic C.difficile
04/23/25 18:00 Blood Culture - Final
Blood/Venous No Growth - Final Report
04/10/25 12:30 Blood Culture - Final
Blood/Venous No Growth - Final Report
04/10/25 10:12 Blood Culture - Final
Blood/Venous No Growth - Final Report
04/13/25 14:55 C. difficile GDH Antigen & Toxins - Final
Feces/Stool Negative for toxigenic C.difficile
04/11/25 04:12 MRSA Screen - Final
Nose Staph aureus MRSA
Imaging:
04/30/2025 ECHO (ALENA): EF approximately 60%. Mitral valve with a small mobile echodensity on the atrial side of the mitral annulus. Echodensity is bright and mobile and may be part of the mitral annular calcification, but cannot exclude vegetation.
Please see full dictation for additional detail.
04/11/2025 ECHO (TTE): technically difficult study. EF approximate 60%. Aortic sclerosis noted. Mitral valve is thickened with dense mitral annular calcification. Adequate mitral valve leaflet excursion noted. Please see full dictation for
additional detail.
04/15/2025 CT abdomen/pelvis with contrast: rectum shows concentric wall thickening compatible with some form of proctitis. Perirectal inflammatory stranding is noted, but no signs of free fluid or drainable collection. Bones are diffusely
demineralized. Osseous destructive process at T8-T9. Recent fracture of the greater trochanter of the right femur is noted. Please see full dictation for additional detail.
04/09/2025 MRI brain without contrast: There are small foci of restricted diffusion involving the bilateral frontoparietal white matter, the left frontal white matter more anteriorly in the right basal ganglia consistent with acute/subacute
infarctions. These may be embolic in nature given the multivessel territory. Mild atrophy with sequelae of moderate chronic small vessel ischemic disease.
Prominent blooming artifact along the left paramedian parietal lobe which is likely sequelae of prior hemorrhage/hematoma.
--- NOTE | 2025-05-08 11:28 | W.PN.NEPH.PH ---
Today's Communication / Plan
-
hospice
Assessment/Plan
-
59[address] [facility] resident ESRD MWF roxanne Eliquis HTN HLD DM PAD toe amputations CHF Anxiety Depression suspected underlying vascular dementia recent prolonged hospitalization [facility] January 11 to March 17 for intractable back pain catheter
associated infection VR and Klebsiella bacteremia (following which he was discharged to [facility] with long term acute care registered nurse IV abx Cefipime and Daptomycin to be given with HD- sent by SNF for evaluation AMS, normally AOx3 at baseline, essentially obtunded on
arrival with associate severe hypotension systolic 70s. Improved with IVF bolus,
Impression
ESRD MWF [facility]
Sepsis
A-fib
Dementia/AMS
CVA
History of Klebsiella pneumonia due to catheter in December 2024 at [facility]
right cephalic nonocclusive thrombus, RUE edema
Plan:
for hospice
no further HD
replete K today
-
-
Date of Service: May 08, 2025
CC / HPI / ROS
-
Chief Complaint:
AMS, ESRD
History of Present Illness:
Anemia stable
BP stable
End-stage renal disease on Monday dialysis cath
tolerated HD yesterday
K low 2.7
Review of Systems:
no fever
noncommunicative
Labs
-
Labs:
WBC 14.9 10^3/uL (4.8-10.8) H 05/08/25 05:18
RBC 2.69 10^6/uL (4.70-6.10) L 05/08/25 05:18
Hgb 8.5 g/dL (13.0-18.0) L 05/08/25 05:18
Hct 25.5 % (39.0-52.0) L 05/08/25 05:18
Plt Count 173 10^3/uL (130-400) 05/08/25 05:18
Sodium 133 mmol/L (135-145) L 05/08/25 05:18
Potassium 2.7 mmol/L (3.5-5.1) L* D 05/08/25 05:18
Chloride 101 mmol/L (98-107) 05/08/25 05:18
Carbon Dioxide 22 mmol/L (22-30) 05/08/25 05:18
BUN 29 mg/dl (9-20) H 05/08/25 05:18
Creatinine 1.8 mg/dL (0.7-1.3) H 05/08/25 05:18
eGFR 43.09 05/08/25 05:18
Glucose 157 mg/dl (70-99) H 05/08/25 05:18
Calcium 8.1 mg/dl (8.4-10.2) L 05/08/25 05:18
Phosphorus 1.5 mg/dl (2.5-4.5) L 04/20/25 04:29
Albumin 2.1 g/dl (3.5-5.0) L 05/08/25 05:18
Physical Exam
-
Vital Signs:
Vital Signs
Temp Pulse Resp BP Pulse Ox
97.9 F 85 29 134/94 95
05/08/25 07:20 05/08/25 06:00 05/08/25 06:00 05/08/25 06:00 05/07/25 21:48
Cardiovascular:: Regular rate and rhythm
Respiratory:: Bilateral: Coarse
Lung Excursion:: Normal
Abdomen:: Nontender and Soft
Bowel Sounds:: Normal
Extremity Edema:: None: Bilateral:
[2025-05-08] MEDS: D5/0.45%NACL 1000 IV (13:04)
[2025-05-08 13:33] LABS: Glucose - Point of Care 167 mg/dl (70-99)
--- NOTE | 2025-05-08 15:13 | PTCARENOTE ---
Rec'd pt this AM. Family arrived at bedside and met with manager business development hospice and CM. Sister reluctant to sign onto hospice today. Asking for more time. RN educated family on pt's needs. Pt grimaces often, especially during wound care. Family will consider
hospice tomorrow.
--- NOTE | 2025-05-08 16:55 | CHAP ---
Emotional and spiritual support provided throughout the afternoon as family arrived and visited. Will follow.
--- NOTE | 2025-05-08 17:07 | W.PN.UPDATE ---
Update Note
Progress Note Update
This morning the sister was clear that they were going to transition towards hospice, however upon arrival, they started speaking with the patient and it seemed to them that he understood what they were saying. When they asked him if he was okay
with them stopping dialyses, it appeared to them as if he was saying no. It also appeared as if the patient was reaching for his daughter's hands.
At this time they have not made a decision and will continue to think about it. They stated this is an incredibly difficult decision for them to make. Case management, the hospice nurse, the insurance verification rep and the wound care nurse all made it clear
treatment is medically futile. Discussions are ongoing.
--- NOTE | 2025-05-08 17:47 | CM ---
Following up on the Patient. Family arrived throughout the day, first sister Geovanni, then Meenakshi, Megan has not yet, then 2 daughters Kamrny and Esha later in the day.
There was a moment that some of the above staff were in the room and when sister Geovanni asked if the patient wanted to continue FULL Code/ medical treatment, patient said no. It was then left to wait for the sisters. Sister Geovanni came out of the room a
short time later to say that he told her he still wants dialysis. Now, Geovanni is unsure and want the daughters to come to have a larger family meeting so no consents were signed for Hospice.
Sister Geovanni is still, now, not sure when or if Hospice or if she wants another session of dialysis. DEO Ramos, Director [facility] Resident, Sales And Marketing Assistant Lisa all have visited to offer support as well as guidance to the bigger picture
re: his quality.
DEO Ramos met sister Meenakshi, then met the two daughters who were very tearful over seeing their dad. As it stands now, we need to give them time tonight to meet as a family to decide what is next.
PLAN: Hospice vs TBD
[2025-05-08] MEDS: LEVOTHROID 50 MCG IV (17:55)
[2025-05-08 18:07] LABS: Glucose - Point of Care 187 mg/dl (70-99)
--- NOTE | 2025-05-08 18:11 | PTCARENOTE ---
RN provided emotional support and education to pt's 2 daughters at bedside. All questions answered.
[2025-05-09] VITALS (7 sets, daily range): BP systolic 108–122; BP diastolic 53–73; BMI 19.6
[2025-05-09] MEDS: OFIRMEV 100 IV ×2 (00:04→10:38)
[2025-05-09] MEDS: LOPRESSOR 5 MG IV ×2 (00:04→05:55)
[2025-05-09] MEDS: NOVOLOG FLEXPEN-MODERATE RESISTANCE 1 UNITS SC (00:15)
[2025-05-09 00:28] LABS: Glucose - Point of Care 185 mg/dl (70-99)
--- NOTE | 2025-05-09 03:50 | PTCARENOTE ---
received patient from previous RN. Patient Q2 turn. FMS in place. Heparin gtt infusing. Patient's family at bedside for most of evening. care ongoing.
[2025-05-09] MEDS: DILAUDID 0.25 MG IV (03:57)
[2025-05-09 04:32] LABS: Hematocrit 27.7 % (39.0-52.0); Hemoglobin 8.6 g/dL (13.0-18.0); Mean Corp Hgb Conc. 31.0 g/dL (33.0-37.0); Mean Corpuscular Volume 99.6 fL (80.0-94.0); Platelet Count 165 10^3/uL (130-400); Red Cell Dist. Width 26.8 % (11.5-14.5)
[2025-05-09 04:47] LABS: APTT 125.0 Sec (23.4-35.0)
[2025-05-09 05:30] LABS: Blood Urea Nitrogen 34 mg/dl (9-20); Calcium 8.4 mg/dl (8.4-10.2); Carbon Dioxide 24 mmol/L (22-30); Chloride 103 mmol/L (98-107); Estimated Creatinine Clearance 32 ml/min; Glucose 160 mg/dl (70-99); Potassium 3.9 mmol/L (3.5-5.1); Sodium 132 mmol/L (135-145); eGFR 32.11
[2025-05-09] MEDS: ZOSYN 50 IV (05:55)
--- NOTE | 2025-05-09 07:35 | W.PN.HOSP.TC ---
Today's Communication/Plan
-
HD
Continue antibiotics and heparin
Continue goals of care discussion
Pain meds for wound care
Re-discuss PEG as dobhoff has been out since 05/05
Assessment / Plan
Assessment / Plan
59 y/o patient had a prolonged hospitalization at [facility] January 11, 2025 to March 17, 2025 for intractable back pain, catheter associated infection, Klebsiella bacteremia. On long-term IV antibiotics cefepime and daptomycin with HD here
for acute change in mental status. Patient was obtunded on arrival and hypotensive. Baseline intermittently confused and bedbound since November 2024 per POA. Able to talk to sister on the phone at baseline.
CT Head: No acute intracranial abnormality noted.There are mild/moderate periventricular and subcortical white matter hypodensities which are nonspecific, however likely sequelae of chronic small vessel ischemic disease.
EEG 04/11/2025: Diffuse cortical dysfunction without focal abnormality. No seizures activity.
Echo 04/11/2025: TDS. EF 60-65%, no RWMA.
MRI brain 04/13/25: There are small foci of restricted diffusion involving the bilateral frontoparietal white matter, the left frontal white matter more anteriorly in the right basal ganglia consistent with acute/subacute infarctions. These may be
embolic in nature given the multivessel territory. Mild atrophy with sequelae of moderate chronic small vessel ischemic disease. Prominent blooming artifact along the left paramedian parietal lobe which is likely sequelae of prior
hemorrhage/hematoma.
CT A/P w/IV contrast 04/15/25: Limited exam, anasarca, splenomegaly, atrophic bilateral kidneys, proctitis indeterminate etiology, diffuse wall thickening of the urinary bladder outlet obstruction without source neurogenic bladder. Small focus of
gas in the bladder. Recent fracture of greater trochanter of right femur. Osseous destructive process of the T8-T9. Abnormal lucent and sclerotic appearance of the bones likely renal osteodystrophy
R Hip x-ray 04/17/25: Findings suggesting subacute fracture of the right greater trochanter.
CXR 04/23: Mild pulmonary vascular congestion. Mild hazy opacity in the right lung base, which could represent atelectasis or pneumonia.
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 However, if there is no history of clot in this region, early thrombus cannot be excluded. Clinical correlation recommended
#Acute/subacute CVAs :
-MRI brain above, likely embolic in nature - likely valve vegetation
-On heparin drip
# Mitral valve vegetation
-Noted on ALENA on 04/30
-Could be source of embolic stroke
-6 week course of antibiotics per ID - currently on zosyn
# Unstageable necrotic sacral wound -debridement on 04/30/25
- Wound culture revealed klebsiella, proteus vulgaris and enterococcus species
- No granulation tissue per wound care - worsening with progressive dermal gangrene - rectal tube placed to protect wound from ongoing diarrhea - poor prognosis
- Sister is okay with pain meds with wound care. 0.5 dilaudid BID for wound care.
#Right hand swelling
- Increased from before. Known superficial clot in right hand. Warm compress
#Acute metabolic encephalopathy
-Multifactorial due to hypotension, polypharmacy, hypovolemia, (possibly) acute/subacute CVAs, and likely vascular dementia
-started on IV Synthroid, endocrine saw in c/s
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
-EEG without seizure activity
-Cont to hold gabapentin/Haldol
-Dobhoff placed on 04/18/25 for feeds - replaced 04/28/25 because it got clogged - length adjusted from 80 to 65 per previous as night team was concerned with length - repeat x-ray good position
-As pt's sister wants to continue aggressive care, GI consulted for PEG placement - pressure wound from dobhoff noted - Family decided against PEG tube. Dobhoff was removed 05/05 and started on D5 1/2 NS low rate - discussed with nephrology - will
need to re-discuss PEG as patient is not getting any nutrition while the family is deciding for hospice or not.
#Febrile
#H/O VRE and Klebsiella bacteremia:
-admitted on daptomycin/cefepime and transitioned to IV Zosyn per ID. Now off abx as per ID as d/c records indicate completion of antibiotics at [place] and unclear as to why they were started at [facility]. Cultures were negative and pt was
afebrile.
-04/23/25AM temp 101.2 F. Septic w/u with BCxs, chest x-ray. Abx ordered but stopped by ID.
-Zosyn started 04/26/2025 to cover for positive blood cultures with klebsiella and proteus vulgaris. Daptomycin added with dialysis 05/05 for VRE growth from sacral wound cultures - No PO access so no statin regardless
-Infectious disease following
#Pancytopenia:
-anemia likely secondary to chronic kidney disease likely worsened by prior daptomycin treatment
-BMBx and MM work up was done at [facility] revealing no BM or genetic mutations
-Heme/onc appreciated for possible eval for TTP, no TTP as no schistocytes and normal LDH
-Status post 2 units of PRBCs this admission
#Anxiety/depression
-Psychiatric valuation appreciated. BuSpar discontinued.
-Taper off lexapro per psych - off lexapro with no change in mental status.
#Lupus anticoagulant positive likely contributing to hypercoagulable state. Heparin bridge started. Now that there is no dobhoff, remain on heparin drip until family decides to move towards hospice or not.
#Hypothyroidism - repeat TSH 14.4 and free T4 0.72. Okay to transition from IV levothyroxine 75 to PO 75 per endocrinology - shaun out IV 50 levo daily.
#Elevated troponin, nonischemic myocardial injury and due to underlying ESRD
#Chronic HFpEF: cont BB - IV
#ESRD: cont HD M/W/F, renal following
#PAF: Cont BB/heparin drip
#? Metastatic disease: Hospital records from [facility] revealed concerns for metastatic disease after MRI of spine done. Some proctocolitis of bowels noted on imaging as well. CT A/P revealed no obvious metastatic disease
#Diarrhea: C diff NEG 04/13, c.diff (-) 04/29
#R greater trochanteric femur fracture: No surgical intervention required per ortho.
#Essential HTN: BB with holding parameters
#HLD: Cont statin
#Hypokalemia, replete prn
#Hypophosphatemia, replete
#Bedbound since November 2024 with intermittent confusion at baseline
#DM2: SSI/accuchecks
#Concern for vascular dementia
#Amputation of the left toes 1-3
#Osseous destruction of T8-T9
#Splenomegaly
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
#Wounds unstageable
-Unstageable sacral pressure injury
-stage I B/L heel pressure injury
-wound care
-Tylenol 1,000mg TID for pain - IV tylenol. No rectal access with ongoing diarrhea and rectal tube placed
# DVT prophylaxis-heparin
# DNR Status
The family is still deciding whether or not they will transition to hospice. Discussions ongoing. Will need to re-discuss PEG with no nutrition since 05/05.
Anticipated Discharge: > 48 hours
Subjective/Interval History
-
Date of Service: May 09, 2025
Remained obtunded. No significant change. Appeared to be in a lot of pain with wound care according to nursing overnight despite 0.25 Dilaudid (the sister agreed to pain meds with wound care.)
Objective Data
-
Labs:
Laboratory Results
05/09/25 05/09/25
04:22 12:15
WBC 19.2 H
Hgb 8.6 L
Hct 27.7 L
Plt Count 165
APTT 125.0 H Pending
Sodium 132 L
Potassium 3.9 D
Chloride 103
Carbon Dioxide 24
BUN 34 H
Creatinine 2.3 H
Glucose 160 H
Calcium 8.4
Vital Signs:
Vital Signs
Temp Pulse Resp BP Pulse Ox
99.1 F 74 12 115/60 95
05/09/25 03:00 05/09/25 06:00 05/09/25 06:00 05/09/25 06:00 05/08/25 22:08
Review of Systems
-
Unable to obtain full review of systems at this time due to: Dementia and Acuity
Physical Exam
-
General: Appears Chronically Ill
Respiratory: Clear to Auscultation
Cardiac: Regular Rhythm and S1/S2
GI: Soft, Nondistended and Normal Bowel Sounds
Musculoskeletal: Other (RUE edema >L, missing toes )
[2025-05-09 08:10] LABS: Glucose - Point of Care 149 mg/dl (70-99)
--- NOTE | 2025-05-09 08:39 | W.PN.UPDATE ---
Update Note
Progress Note Update
I saw and evaluated the patient. I reviewed the resident�s note and agree with findings and plan as documented in the resident�s note.
Pt currently nonverbal.
Gen: NAD, NCAT, appears chronically ill
Eyes: EOMI, PERRLA, no scleral icterus.
Neck: supple.
CV: RRR, +S1/S2, no m/r/g.
Resp: continues to remain CTAB anteriorly, no rales, wheezes, or rhonchi.
Abd: +BS, soft, NT, ND
Skin: No rashes.
Neuro: CN 2-12 intact, non-focal.
Psych: remains calm
04/28/25 03:18 Blood/Venous Blood Culture - Final
Klebsiella aerogenes
04/28/25 03:18 Blood/Venous Gram Stain - Final
04/26/25 11:09 Blood/Venous Blood Culture - Final
Klebsiella aerogenes
04/26/25 11:09 Blood/Venous Gram Stain - Final
04/26/25 10:15 Blood/Venous Blood Culture - Final
Proteus vulgaris
Klebsiella aerogenes
04/26/25 10:15 Blood/Venous Gram Stain - Final
04/30/25 13:16 Sacral Wound Culture - Final
Enterococcus faecium - VRE
Klebsiella aerogenes
Proteus vulgaris
04/30/25 13:16 Sacral Gram Stain - Final
04/30/25 13:16 Sacral Anaerobic Culture - Final
04/29/25 16:56 Blood/Venous Blood Culture - Final
No Growth - Final Report
04/29/25 15:06 Blood/Venous Blood Culture - Final
No Growth - Final Report
04/28/25 03:23 Blood/Venous Blood Culture - Final
No Growth - Final Report
04/23/25 14:38 Blood/Venous Blood Culture - Final
Gram negative bacilli
04/23/25 14:38 Blood/Venous Gram Stain - Final
04/23/25 18:00 Sacral Wound Culture - Final
Proteus vulgaris
Klebsiella aerogenes
Enterococcus faecalis - VRE
Streptococcus species
04/23/25 18:00 Sacral Gram Stain - Final
04/29/25 04:10 Feces/Stool C. difficile GDH Antigen & Toxins - Final
Negative for toxigenic C.difficile
04/23/25 18:00 Blood/Venous Blood Culture - Final
No Growth - Final Report
04/10/25 12:30 Blood/Venous Blood Culture - Final
No Growth - Final Report
04/10/25 10:12 Blood/Venous Blood Culture - Final
No Growth - Final Report
04/13/25 14:55 Feces/Stool C. difficile GDH Antigen & Toxins - Final
Negative for toxigenic C.difficile
04/11/25 04:12 Nose MRSA Screen - Final
Staph aureus MRSA
MRI brain 04/13/25: Small foci of restricted diffusion involving the bilateral frontoparietal white matter, the left frontal white matter more anteriorly in the right basal ganglia consistent with acute/subacute infarctions. These may be embolic in
nature given the multivessel territory. Mild atrophy with sequelae of moderate chronic small vessel ischemic disease. Prominent blooming artifact along the left paramedian parietal lobe which is likely sequelae of prior hemorrhage/hematoma.
Acute/subacute CVAs :
-MRI brain above, likely embolic in nature
-Heparin gtt
Acute metabolic encephalopathy:
-Multifactorial due to hypotension, polypharmacy, hypovolemia, acute/subacute CVAs, and likely vascular dementia
-started on Synthroid, endocrine saw in c/s
-EEG without seizure activity
-Cont to hold gabapentin/Haldol
-Dobhoff placed on 04/18/25 for feeds, replaced again due to blockage, now removed
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
-admitted on daptomycin/cefepime and transitioned to IV Zosyn per ID. Then was discontinued prior as per ID as d/c records indicate completion of antibiotics at [facility] and unclear as to why they were started at [facility].
-Klebsiella and Proteus vulgaris bacteremia noted on blood culture 04/26/2025. Repeat BCxs from 04/28/2025 with Klebsiella. Sacral WCx 04/30 with VRE, klebsiella, and Proteus. likely source is sacral decubitus ulcer which has been debrided
-ALENA 04/30/25 showed small mobile MV density, cannot exclude vegetation
-Will need to be treated as endocarditis with 6 weeks abx
-ID following
-currently on Dapto/Zosyn
F/E/N:
-after meeting with the patient's sister on 05/05 the decision has been made to not pursue PEG tube, DHT removed 05/05/25, cont IVFs for now
Pancytopenia:
-anemia likely secondary to chronic kidney disease
-BMBx and MM work up was done at [facility] revealing no BM or genetic mutations
-Heme/onc appreciated for possible eval for TTP, no TTP as no schistocytes and normal LDH, antibody panels for other causes of hypercoagulable states pending
-s/p 2U pRBCs this admission
-Thrombocytopenia and leukopenia have resolved
Other problems:
Lupus anticoagulant positive likely contributing to hypercoagulable state. Heparin gtt restarted.
Hypothyroidism: cont Synthroid
Elevated troponin, nonischemic myocardial injury and due to underlying ESRD
Chronic HFpEF: cont BB
ESRD: cont HD M/W/F, renal following
PAF: Cont BB/heparin drip
Anxiety/depression: seen by psych
? Metastatic disease: Hospital records from [facility] revealed concerns for metastatic disease after MRI of spine done. Some proctocolitis of bowels noted on imaging as well. CT A/P revealed no obvious metastatic disease
Diarrhea: C diff NEG
R greater trochanteric femur fracture: No surgical intervention required per ortho.
Essential HTN: BB with holding parameters
HLD: Cont statin
Hypokalemia, replete PRN
Hypophosphatemia
Hyponatremia, resolved
Bedbound since November 2024 with intermittent confusion at baseline
DM2: SSI/accuchecks
Likely vascular dementia
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
Osseous destruction of T8-T9
Splenomegaly
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
Wounds:
-Stage IV sacral pressure injury, wound debridement done by surgeon on 04/30/25: Necrotic skin subcutaneous tissue muscle and fascia debrided, There was also 6cm space in the ischial area with malodorous pus. Exposed sacral bone.
-stage I B/L heel pressure injury
-wound care and change of position.
-Tylenol/Oxycodone PRN
Overall care is futile. At this point the patient's family does not want PEG tube placement. Ongoing discussions about hospice.
DNR/Heparin gtt
[2025-05-09] MEDS: MYCOSTATIN ORAL SUSPENSION 5 ML PO (08:41)
[2025-05-09] MEDS: NSS (PRESERVATIVE FREE) 10 ML IV (08:42)
[2025-05-09] MEDS: SANTYL OINTMENT 1 APPLIC TOPICAL (08:42)
[2025-05-09] MEDS: DAKIN'S SOLUTION 0.125% 1/4 STRENGTH 473 ML TOPICAL (08:42)
[2025-05-09] MEDS: PROTONIX IV 40 MG IV (08:42)
[2025-05-09] MEDS: DESENEX/MITRAZOL/ZEASORB 1 APPLIC TOPICAL (08:43)
--- NOTE | 2025-05-09 10:12 | W.PN.ID1 ---
Date of Service
Date of Service: May 09, 2025
Today's Communication
Continue antibiotics
Assessment / Plan
Bacteremia
- 04/23 blood cx's blood culture with gram-negative rods, but could not speciate.
- 04/23 CXR: mild opacity RLL atelectasis vs PNA
- 04/26/25 blood cx's with Klebsiella aerogenes and Proteus vulgaris. These organisms were also recovered from the unstageable sacral decubiti.
- Potential sources of bacteremia include sacral wound, HD line.
-04/23 Sacral wound polymicrobial growth, including Proteus, Klebsiella, VRE (amp resistant) and an additional strep species
Fever -appears resolved
Leukocytosis
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
- Given recent bacteremia (recovery of Klebsiella aerogenes and Proteus vulgaris), there is high probability that if truly a vegetation it is infected.
Encephalopathy; ongoing
Prior Hx VRE / Klebsiella infection 2* HD cath CLABSI (at [facility])
- Previously on dapto / cefepime when arrived from nursing facility; completed course of therapy
Stage IV sacral decubitus ulcer
- s/p debridement
Penile dermal necrosis
Vascular dementia
P A-fib (on Eliquis)
ESRD�HD (MWF)
DM
PAD
CHF
Anxiety/depression
Recommendations:
Most recent sacral cultures from 04/30 with VRE (amp resistant). Continue short course of daptomycin. Follow CK while on dapto. Hold statin.
Continue local care to sacral wound.
Continue Zosyn (d#13). Continue daptomycin (d#5).
Overall prognosis for return to any quality of life is zero.
Patient with nonexistent wound healing capacity given underlying cachexia, low albumin and protein stores. Progressive dermal gangrene of sacral area is evidence of this.
Patient is hospice-appropriate as ongoing aggressive care serves only to prolong the patient's suffering and inevitable demise.
����������������������������������������������������������
Chief Complaint
-: Fever, Bacteremia and Other (Change in mental status, failure to thrive; Necrotic sacral wound)
Subjective / Review of Systems
Patient seen and examined. No change overnight.
Review of Systems: No Fever
Vital Signs / Physical Exam
Vital Signs
Vital Signs
Temp Pulse Resp BP Pulse Ox
98.1 F 74 12 115/60 95
05/09/25 07:25 05/09/25 06:00 05/09/25 06:00 05/09/25 06:00 05/08/25 22:08
Physical Exam
Constitutional: Acutely Ill, Chronically Ill, Cachetic and Other (Mild temporal wasting)
Cardiovascular: S1/S2; Negative S3/S4
Pulmonary: Non Labored; Negative Wheezes or Rales
Gastrointestinal: Soft, Non Distended, No Rebound and Other (FMS in place with liquid stool)
Extremities: Edema (Trace lower extremity); Negative Cyanosis or Erythema
Wound: Other (Sacral wound dressed.)
Neurological: Other (Arousable to touch. Nonverbal.)
Lines: CVP (Left IJ) and HD Cath (Left ACW)
Objective Data
Lab Data
Lab Results
05/09/25 04:22
05/09/25 04:22
PT 19.6 Sec (11.4-14.6) H 04/24/25 05:43
INR 1.60 04/24/25 05:43
APTT 125.0 Sec (23.4-35.0) H 05/09/25 04:22
Estimated Creat Clear 32 ml/min 05/09/25 04:22
Lactic Acid Cancelled 04/10/25 14:15
Total Bilirubin 1.1 mg/dl (0.2-1.3) 05/08/25 05:18
AST 16 U/L (17-59) L 05/08/25 05:18
ALT 12 U/L (0-50) 05/08/25 05:18
Alkaline Phosphatase 256 U/L (38-126) H 05/08/25 05:18
Most recent labs reviewed.
Micro Results:
04/28/25 03:18 Blood Culture - Final
Blood/Venous Klebsiella aerogenes
Gram Stain - Final
04/26/25 11:09 Blood Culture - Final
Blood/Venous Klebsiella aerogenes
Gram Stain - Final
04/26/25 10:15 Blood Culture - Final
Blood/Venous Proteus vulgaris
Klebsiella aerogenes
Gram Stain - Final
04/30/25 13:16 Wound Culture - Final
Sacral Enterococcus faecium - VRE
Klebsiella aerogenes
Proteus vulgaris
Gram Stain - Final
04/30/25 13:16 Anaerobic Culture - Final
Sacral
04/29/25 16:56 Blood Culture - Final
Blood/Venous No Growth - Final Report
04/29/25 15:06 Blood Culture - Final
Blood/Venous No Growth - Final Report
04/28/25 03:23 Blood Culture - Final
Blood/Venous No Growth - Final Report
04/23/25 14:38 Blood Culture - Final
Blood/Venous Gram negative bacilli
Gram Stain - Final
04/23/25 18:00 Wound Culture - Final
Sacral Proteus vulgaris
Klebsiella aerogenes
Enterococcus faecalis - VRE
Streptococcus species
Gram Stain - Final
04/29/25 04:10 C. difficile GDH Antigen & Toxins - Final
Feces/Stool Negative for toxigenic C.difficile
04/23/25 18:00 Blood Culture - Final
Blood/Venous No Growth - Final Report
04/10/25 12:30 Blood Culture - Final
Blood/Venous No Growth - Final Report
04/10/25 10:12 Blood Culture - Final
Blood/Venous No Growth - Final Report
04/13/25 14:55 C. difficile GDH Antigen & Toxins - Final
Feces/Stool Negative for toxigenic C.difficile
04/11/25 04:12 MRSA Screen - Final
Nose Staph aureus MRSA
Imaging:
04/30/2025 ECHO (ALENA): EF approximately 60%. Mitral valve with a small mobile echodensity on the atrial side of the mitral annulus. Echodensity is bright and mobile and may be part of the mitral annular calcification, but cannot exclude vegetation.
Please see full dictation for additional detail.
04/11/2025 ECHO (TTE): technically difficult study. EF approximate 60%. Aortic sclerosis noted. Mitral valve is thickened with dense mitral annular calcification. Adequate mitral valve leaflet excursion noted. Please see full dictation for
additional detail.
04/15/2025 CT abdomen/pelvis with contrast: rectum shows concentric wall thickening compatible with some form of proctitis. Perirectal inflammatory stranding is noted, but no signs of free fluid or drainable collection. Bones are diffusely
demineralized. Osseous destructive process at T8-T9. Recent fracture of the greater trochanter of the right femur is noted. Please see full dictation for additional detail.
04/09/2025 MRI brain without contrast: There are small foci of restricted diffusion involving the bilateral frontoparietal white matter, the left frontal white matter more anteriorly in the right basal ganglia consistent with acute/subacute
infarctions. These may be embolic in nature given the multivessel territory. Mild atrophy with sequelae of moderate chronic small vessel ischemic disease.
Prominent blooming artifact along the left paramedian parietal lobe which is likely sequelae of prior hemorrhage/hematoma.
[2025-05-09] MEDS: HEPARIN 25000 UNITS/250 ML IV (11:42)
--- NOTE | 2025-05-09 12:27 | W.PN.UPDATE ---
Update Note
Progress Note Update
Patient's family signed the paper work for hospice. Will admit to inpatient hospice.
--- NOTE | 2025-05-09 12:33 | HOSPNOTE ---
Patient will be inpatient hospice today, consents are signed and Attending team updated with update. Admissions called to request a bed on [address]. Sister understands that only comfort meds will be given, fluids will be discontinued and we will focus
on symptom management.
--- NOTE | 2025-05-09 12:44 | W.DCSUMMARY ---
Discharge Summary
Discharge Data
Date of Admission: 04/10/25
Date of Discharge: 05/09/25
-
Pending Results: No
Hospital Course
Primary diagnosis:
Acute/subacute CVAs
Acute metabolic encephalopathy
Bacteremia secondary to sacral decubitus ulcer
Small mobile mitral valve density -likely vegetation
Lupus anticoagulant positive
Hypothyroidism
Diarrhea
Hypokalemia
Hypophosphatemia
Hyponatremia
Secondary diagnoses:
Pancytopenia
History of VRE and Klebsiella bacteremia
Essential hypertension
Hyperlipidemia
Type 2 diabetes
Anxiety
Depression
End-stage renal disease on dialysis
Paroxysmal atrial fibrillation
Hospital course:
59 y/o male with baseline poor medical health with history of ESRD on dialysis, paroxysmal a.fib on Eliquis, HTN, HLD, DM, PAD s/p multiple toe amputations, CHF, Anxiety, Depression, suspected underlying vascular dementia recent prolonged
hospitalization [facility] January 11 to March 17 for complicated by VRE and Klebsiella bacteremia (following which he was discharged to [facility] with retirement IV abx Cefepime and Daptomycin to be given with HD) was sent by SNF for
evaluation AMS and hypotension. We provided fluid resuscitation and continued antibiotics with no change. Head CT was unremarkable. We did an EEG to rule out seizure which was inconclusive as well as transitioned him from cefepime to zosyn to rule
out cefepime neurotoxicity. Brain MRI revealed multiple small areas of stroke per below.
During this period records from [facility] were obtained and it was shown he completed his antibiotic course there. Bone marrow biopsy was also done there for ongoing pancytopenia which were normal. As cultures were negative here and afebrile so
antibiotics were discontinued here. Due to his obtunded state, a ALENA was deferred at that time for risk of aspiration but a work up for other causes of hyper-coaguable state was done and he was found to be lupus anticoagulant positive per heme/onc
work up. They also worked up and ruled out possible TTP. CT ab/pelvis was done as well to evaluate for possible metastatic cancer to explain lucent and sclerotic appearance of bone on imaging sent by [facility], however no obvious malignancy was
found and ultimately thought to be due to renal osteodystrophy. A right femur fracture was noted at this time however no interventions were indicated per orthopedics. TSH was also added on and found to be elevated at 26 with free T4 0.60 so he was
started on IV levothyroxine to treat possible myxedema coma. There was no improvement with the levothyroxine ruling that out as possible cause of AMS. We were going to transition to warfarin with heparin bridge when he spiked a new onset fever.
Extensive infectious work up began and source thought to be due to sacral wound vs HD line. He was started on zosyn. Family agreed to sacral wound debridement under anesthesia at which point a concurrent ALENA was done.
ALENA found possible vegetations and a 6 week antibiotic course was recommended. The sacral wound debridement was down to the bone (stage IV) and over the next few days appeared to be getting worse with no granulation tissue and consistent exposure to
feces as patient has ongoing diarrhea with tube feeds despite attempts to limit exposure with rectal tube. C. diff (-). Blood cultures revealed klebsiella and proteus vulgaris. Sacral wound cultures revealed proteus vulgaris, klebsiella aerogenes
and enterococcus faecalis (VRE). Daptomycin was added with dialysis to cover VRE. In the midst of this, a dobhoff tube was placed for nutrition as NPO in obtunded state. Discussions with family were ongoing as to goals of care with the understanding
that an eventual PEG tube would be required. Repeat EEG was done per request of family which revealed no seizure activity. The ethics committee was consulted. PEG tube was eventually decided against by family. A second opinion by the director of
neurology at [facility] Dr. Araujo was provided and he also stated this patient is hospice appropriate.
After much discussion between the family, the field nurse case manager, hospital bb shot packer and hospice nurse, the family agreed to move towards comfort measures. Today, the patient is transitioning towards hospice in favor of comfort.
Imaging:
CT Head: No acute intracranial abnormality noted.There are mild/moderate periventricular and subcortical white matter hypodensities which are nonspecific, however likely sequelae of chronic small vessel ischemic disease.
EEG 04/11/2025: Diffuse cortical dysfunction without focal abnormality. No seizures activity.
Echo 04/11/2025: TDS. EF 60-65%, no RWMA.
MRI brain 04/13/25: There are small foci of restricted diffusion involving the bilateral frontoparietal white matter, the left frontal white matter more anteriorly in the right basal ganglia consistent with acute/subacute infarctions. These may be
embolic in nature given the multivessel territory. Mild atrophy with sequelae of moderate chronic small vessel ischemic disease. Prominent blooming artifact along the left paramedian parietal lobe which is likely sequelae of prior
hemorrhage/hematoma.
CT A/P w/IV contrast 04/15/25: Limited exam, anasarca, splenomegaly, atrophic bilateral kidneys, proctitis indeterminate etiology, diffuse wall thickening of the urinary bladder outlet obstruction without source neurogenic bladder. Small focus of
gas in the bladder. Recent fracture of greater trochanter of right femur. Osseous destructive process of the T8-T9. Abnormal lucent and sclerotic appearance of the bones likely renal osteodystrophy
R Hip x-ray 04/17/25: Findings suggesting subacute fracture of the right greater trochanter.
CXR 04/23: Mild pulmonary vascular congestion. Mild hazy opacity in the right lung base, which could represent atelectasis or pneumonia.
EEG 04/24/25: This study was suggestive of diffuse cortical dysfunction without focal abnormality. No seizures were recorded. If concerns remain regarding seizures, consideration for prolonged EEG recording may be given.Clinical correlation is
advised.
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 However, if there is no history of clot in this region, early thrombus cannot be excluded. Clinical correlation recommended
04/28/25 03:18 Blood Culture - Final
Blood/Venous Klebsiella aerogenes
Gram Stain - Final
04/26/25 11:09 Blood Culture - Final
Blood/Venous Klebsiella aerogenes
Gram Stain - Final
04/26/25 10:15 Blood Culture - Final
Blood/Venous Proteus vulgaris
Klebsiella aerogenes
Gram Stain - Final
04/30/25 13:16 Wound Culture - Final
Sacral Enterococcus faecium - VRE
Klebsiella aerogenes
Proteus vulgaris
Gram Stain - Final
04/30/25 13:16 Anaerobic Culture - Final
Sacral
04/29/25 16:56 Blood Culture - Final
Blood/Venous No Growth - Final Report
04/29/25 15:06 Blood Culture - Final
Blood/Venous No Growth - Final Report
04/28/25 03:23 Blood Culture - Final
Blood/Venous No Growth - Final Report
04/23/25 14:38 Blood Culture - Final
Blood/Venous Gram negative bacilli
Gram Stain - Final
04/23/25 18:00 Wound Culture - Final
Sacral Proteus vulgaris
Klebsiella aerogenes
Enterococcus faecalis - VRE
Streptococcus species
Gram Stain - Final
04/29/25 04:10 C. difficile GDH Antigen & Toxins - Final
Feces/Stool Negative for toxigenic C.difficile
04/23/25 18:00 Blood Culture - Final
Blood/Venous No Growth - Final Report
04/10/25 12:30 Blood Culture - Final
Blood/Venous No Growth - Final Report
04/10/25 10:12 Blood Culture - Final
Blood/Venous No Growth - Final Report
04/13/25 14:55 C. difficile GDH Antigen & Toxins - Final
Feces/Stool Negative for toxigenic C.difficile
04/11/25 04:12 MRSA Screen - Final
Nose Staph aureus MRSA
Discharge Plan
-
Patient Disposition: Hospice - Inpatient
Discharge Diagnosis/Procedures: Acute/ subacute cerebral vascular accident
Unstageable necrotic sacral wound status post debridement
Acute metabolic encephalopathy
Klebsiella bacteremia
History of vancomycin resistant enterococcus and klebsiella bacteremia
End stage renal disease on dialysis
Lupus anticoagulant positive
Hypothyroidism
Condition: Critical
Activity Restrictions/Additional Instructions:
Wound Care Instructions
Penis: Clean with soap and water, A&D ointment to eschar daily and prn soilage. Can wrap washcloth or towel around penis to protect from stool.
Sacrum- daily dakins wet to dry. Can change to saline wet to dry if no odor.
Nose abrasion- Apply no-sting barrier daily
Air mattress with Turning Schedule
Bilateral Heels- No sting barrier and silicone foam. Change Q 3 days and PRN.
Increase protein in diet
Follow up at wound care center call for an appointment.
Referrals:
Salvador Estrella DO [Family Provider, Internal Medicine]
Prescriptions:
No Action
acetaminophen [Tylenol] 325 mg Tablet
650 mg PO Q6HPRN PRN (Reason: mild pain)
cefepime 2 gram Recon Soln
2 g IV MOWEFR
ondansetron HCl [Zofran] 4 mg Tablet
4 mg PO Q8HPRN PRN (Reason: nausea)
thiamine HCl (vitamin B1) 100 mg Tablet
100 mg PO DAILY
Theragen Tablet
1 tab PO DAILY
melatonin 3 mg Tablet
6 mg PO HS
bisacodyl [Dulcolax (bisacodyl)] 10 mg Suppository
10 mg SC DAILYPRN PRN (Reason: if no bm aftr mom)
pantoprazole [Protonix] 40 mg Tablet,Delayed Release (Dr/Ec)
40 mg PO DAILY
buspirone 10 mg Tablet
10 mg PO TID
haloperidol 10 mg Tablet
10 mg PO [id number] PRN (Reason: before dialysis/AGITATION/ANXIETY)
metoprolol tartrate 50 mg Tablet
50 mg PO BID
docusate sodium [Colace] 100 mg Capsule
100 mg PO DAILY
gabapentin 100 mg Capsule
100 mg PO TID
sorbitol 70 % Solution
30 ml PO DAILYPRN PRN (Reason: constipation)
insulin lispro 100 unit/mL Insulin Pen
1 sliding scale dose SC AC
Rx Instructions:
181-220=2units, 221-260=2units, 261-300=6units
escitalopram oxalate [Lexapro] 20 mg Tablet
20 mg PO DAILY
rosuvastatin [Crestor] 10 mg Tablet
10 mg PO DAILY
daptomycin 500 mg Recon Soln
470 mg IV MOWEFR
Eliquis 2.5 mg Tablet
2.5 mg PO BID
potassium chloride 20 mEq Tablet Extended Release
40 meq PO BID
magnesium oxide 200 mg magnesium Tablet
168 mg PO DAILY
Discharge Orders:
Discharge Patient (As Directed); Ordered 05/09/25
Ordered By: Bailey Ashley
Discharge Date and Time
Print Language: SPANISH
--- NOTE | 2025-05-09 16:18 | CM ---
Following up on Patient.
Sister Geovanni returned and decided on hospice with Hospice. Patient was then moved to [address] [place] [address]. No other needs
PLAN: Inpatient Hospice with
== END 2025-05-09 13:08 | disposition hospice, inpatient (51) | DRG 40 ==
LOC: IMU 15:55
PROVIDERS: Hospitalist; Internal Medicine; Internal Medicine Cardiovascular Disease; Nurse Practitioner Family; Physician Assistant Medical; Psychiatry & Neurology Neurology; Radiology Diagnostic Radiology; Specialist; Student in an Organized Health Care Education/Training Program; ADMITTING PHYSICIAN Internal Medicine; ATTENDING PHYSICIAN Internal Medicine; CONSULT PHYSICIAN Internal Medicine Endocrinology, Diabetes & Metabolism; CONSULT PHYSICIAN Internal Medicine Infectious Disease; CONSULT PHYSICIAN Orthopaedic Surgery; CONSULT PHYSICIAN Psychiatry & Neurology Clinical Neurophysiology; CONSULT PHYSICIAN Psychiatry & Neurology Psychiatry; EMERGENCY PHYSICIAN Emergency Medicine; FAMILY PHYSICIAN Internal Medicine; OTHER PHYSICIAN Internal Medicine Gastroenterology; OTHER PHYSICIAN Internal Medicine Hematology & Oncology; OTHER PHYSICIAN Internal Medicine Nephrology; OTHER PHYSICIAN Nurse Practitioner Gerontology; OTHER PHYSICIAN Student in an Organized Health Care Education/Training Program; OTHER PHYSICIAN Surgery
PROC: 5A1D70Z Performance of Urinary Filtration, Intermittent, Less than 6 Hours Per Day (ICD-10-PCS; 2025-04-11)
PROC: 30233N1 Transfusion of Nonautologous Red Blood Cells into Peripheral Vein, Percutaneous Approach (ICD-10-PCS; 2025-04-21)
PROC: 02H633Z Insertion of Infusion Device into Right Atrium, Percutaneous Approach (ICD-10-PCS; 2025-04-26)
PROC: B24BZZ4 Ultrasonography of Heart with Aorta, Transesophageal (ICD-10-PCS; 2025-04-30)
PROC: 0KBN0ZZ Excision of Right Hip Muscle, Open Approach (ICD-10-PCS; 2025-04-30)
PROC: 0KBP0ZZ Excision of Left Hip Muscle, Open Approach (ICD-10-PCS; 2025-04-30)
DX: I63.49 Cerebral infarction due to embolism of other cerebral artery (principal); G93.41 Metabolic encephalopathy; L89.154 Pressure ulcer of sacral region, stage 4; S72.111A Displaced fracture of greater trochanter of right femur, initial encounter for closed fracture; N18.6 End stage renal disease; I33.0 Acute and subacute infective endocarditis; D68.62 Lupus anticoagulant syndrome; E87.1 Hypo-osmolality and hyponatremia; D61.818 Other pancytopenia; E11.52 Type 2 diabetes mellitus with diabetic peripheral angiopathy with gangrene; F01.53 Vascular dementia, unspecified severity, with mood disturbance; F01.54 Vascular dementia, unspecified severity, with anxiety; I13.2 Hypertensive heart and chronic kidney disease with heart failure and with stage 5 chronic kidney disease, or end stage renal disease; R64 Cachexia; I5A Non-ischemic myocardial injury (non-traumatic); I50.32 Chronic diastolic (congestive) heart failure; R78.81 Bacteremia; Z68.1 Body mass index [BMI] 19.9 or less, adult; E03.9 Hypothyroidism, unspecified; R19.7 Diarrhea, unspecified; E87.6 Hypokalemia; E83.39 Other disorders of phosphorus metabolism; E11.22 Type 2 diabetes mellitus with diabetic chronic kidney disease; F32.A Depression, unspecified; I48.0 Paroxysmal atrial fibrillation; I95.9 Hypotension, unspecified; X58.XXXA Exposure to other specified factors, initial encounter; Z66 Do not resuscitate; Z51.5 Encounter for palliative care; I34.81 Nonrheumatic mitral (valve) annulus calcification; N25.0 Renal osteodystrophy; R16.1 Splenomegaly, not elsewhere classified; D63.1 Anemia in chronic kidney disease; R94.31 Abnormal electrocardiogram [ECG] [EKG]; B96.1 Klebsiella pneumoniae [K. pneumoniae] as the cause of diseases classified elsewhere; E78.00 Pure hypercholesterolemia, unspecified; E11.649 Type 2 diabetes mellitus with hypoglycemia without coma; R22.31 Localized swelling, mass and lump, right upper limb; E86.1 Hypovolemia; L89.621 Pressure ulcer of left heel, stage 1; L89.611 Pressure ulcer of right heel, stage 1; Z99.2 Dependence on renal dialysis; Z74.01 Bed confinement status; Z79.4 Long term (current) use of insulin; Z79.01 Long term (current) use of anticoagulants; Z86.19 Personal history of other infectious and parasitic diseases
CPT/HCPCS: 36556; 36598; 51701; 70450; 70551; 71045; 73502; 74018; 74177; 76937; 77001; 80048; 80053; 82077; 82248; 82533; 82607; 82728; 82746; 82962; 83010; 83605; 83615; 83735; 84100; 84439; 84443; 84484; 85014; 85018; 85025; 85027; 85045; 85520; 85598; 85610; 85613; 85670; 85730; 86147; 86376; 86706; 86850; 86900; 86901; 86920; 87040; 87070; 87071; 87075; 87077; 87147; 87154; 87186; 87205; 87324; 87340; 87449; 92507; 92523; 92526; 92610; 93005; 93306; 93312; 93320; 93325; 93971; 95816; 96360; 99291; C1751; G0257; J0878; P9016; P9047; Q5106; Q9967

== ENCOUNTER 2025-05-09 13:17 | Inpatient (IN) | payer OTHER, SELFPAY ==
--- NOTE | 2025-05-09 12:41 | HPS.HSE ---
Addendum entered and electronically signed by Maciej Roman MD 05/09/25 13:21:
I personally performed a history and physical exam of the patient and discussed management with the resident. I reviewed the resident's note and agree with the documented findings and plan of care HPI/CC.
Original Note:
Family Physician
-
Family Physician: INTERVIEWE UNKNOWN - PT NOT
Chief Complaint
-
AMS
History of Present Illness
59 y/o male with baseline poor medical health with history of ESRD on dialysis, paroxysmal a.fib on Eliquis, HTN, HLD, DM, PAD s/p multiple toe amputations, CHF, Anxiety, Depression, suspected underlying vascular dementia recent prolonged
hospitalization [facility] January 11 to March 17 for complicated by VRE and Klebsiella bacteremia (following which he was discharged to [facility] with remote computer terminal operator IV abx Cefepime and Daptomycin to be given with HD) was sent by [facility] for
evaluation AMS and hypotension. We provided fluid resuscitation and continued antibiotics with no change. Head CT was unremarkable. We did an EEG to rule out seizure which was inconclusive as well as transitioned him from cefepime to zosyn to rule
out cefepime neurotoxicity. Brain MRI revealed multiple small areas of stroke per below.
During this period records from [facility] were obtained and it was shown he completed his antibiotic course there. Bone marrow biopsy was also done there for ongoing pancytopenia which were normal. As cultures were negative here and afebrile so
antibiotics were discontinued here. Due to his obtunded state, a ALENA was deferred at that time for risk of aspiration but a work up for other causes of hyper-coaguable state was done and he was found to be lupus anticoagulant positive per heme/onc
work up. They also worked up and ruled out possible TTP. CT ab/pelvis was done as well to evaluate for possible metastatic cancer to explain lucent and sclerotic appearance of bone on imaging sent by [facility], however no obvious malignancy was
found and ultimately thought to be due to renal osteodystrophy. A right femur fracture was noted at this time however no interventions were indicated per orthopedics. TSH was also added on and found to be elevated at 26 with free T4 0.60 so he was
started on IV levothyroxine to treat possible myxedema coma. There was no improvement with the levothyroxine ruling that out as possible cause of AMS. We were going to transition to warfarin with heparin bridge when he spiked a new onset fever.
Extensive infectious work up began and source thought to be due to sacral wound vs HD line. He was started on zosyn. Family agreed to sacral wound debridement under anesthesia at which point a concurrent ALENA was done.
ALENA found possible vegetations and a 6 week antibiotic course was recommended. The sacral wound debridement was down to the bone (stage IV) and over the next few days appeared to be getting worse with no granulation tissue and consistent exposure to
feces as patient has ongoing diarrhea with tube feeds despite attempts to limit exposure with rectal tube. C. diff (-). Blood cultures revealed klebsiella and proteus vulgaris. Sacral wound cultures revealed proteus vulgaris, klebsiella aerogenes
and enterococcus faecalis (VRE). Daptomycin was added with dialysis to cover VRE. In the midst of this, a dobhoff tube was placed for nutrition as NPO in obtunded state. Discussions with family were ongoing as to goals of care with the understanding
that an eventual PEG tube would be required. Repeat EEG was done per request of family which revealed no seizure activity. The ethics committee was consulted. PEG tube was eventually decided against by family. A second opinion by the director of
neurology at [facility] Dr. Araujo was provided and he also stated this patient is hospice appropriate.
After much discussion between the family, the bilingual patient support caseworker, hospital trimming department blocker and hospice nurse, the family agreed to move towards comfort measures. Today, the patient is transitioning towards hospice in favor of comfort.
Medical History
Past Medical History
Past Medical History: Reports Other (per below)
Additional Past Medical History:
ESRD MWF, a.fib Eliquis, HTN, HLD, DM, PAD s/p toe amputations, CHF, Anxiety, Depression, suspected underlying vascular dementia
Past Surgical History: Reports Other (Toe amputations, fistula formation )
Social History
Unable to obtain full social history at this time due to: Acuity
Family History
Family History: Not pertinent
Allergies / Home Medications
Allergies reflects when Allergies were last updated in [employer].
Home Medications with original date entered in [employer]
Allergy/Medication List:
Allergies
Allergy/AdvReac Type Severity Reaction Status Date / Time
losartan Allergy Unknown Verified 04/10/25 22:15
oxycodone Allergy Unknown Verified 04/10/25 22:15
Home Medications
acetaminophen 325 mg tablet (Tylenol) 650 mg PO Q6HPRN PRN mild pain 04/10/25
apixaban 2.5 mg tablet (Eliquis) 2.5 mg PO BID Blood Clot Prevention/Tx 04/10/25
bisacodyl 10 mg rectal suppository (Dulcolax (bisacodyl)) 10 mg FL DAILYPRN PRN if no bm aftr mom 04/10/25
buspirone 10 mg tablet 10 mg PO TID Mental Health/Anxiety 04/10/25
cefepime 2 gram solution for injection 2 g IV MOWEFR Infection 04/10/25
daptomycin 500 mg intravenous solution 470 mg IV MOWEFR Infection 04/10/25
docusate sodium 100 mg capsule (Colace) 100 mg PO DAILY Constipation 04/10/25
escitalopram oxalate 20 mg tablet (Lexapro) 20 mg PO DAILY Mental Health/Anxiety 04/10/25
gabapentin 100 mg capsule 100 mg PO TID Pain 04/10/25
haloperidol 10 mg tablet 10 mg PO [id number] PRN before dialysis/AGITATION/ANXIETY 04/10/25
insulin lispro 100 unit/mL subcutaneous pen 1 sliding scale dose SC AC Diabetes 04/10/25
magnesium oxide 168 mg PO DAILY Electrolyte Repletion 04/10/25
melatonin 3 mg tablet 6 mg PO HS Sleep 04/10/25
metoprolol tartrate 50 mg tablet 50 mg PO BID Heart Disease/Condition 04/10/25
ondansetron HCl 4 mg tablet 4 mg PO Q8HPRN PRN nausea 04/10/25
pantoprazole 40 mg tablet,delayed release (Protonix) 40 mg PO DAILY Gastrointestinal Issue 04/10/25
potassium chloride 20 mEq tablet,extended release 40 meq PO BID Electrolyte Repletion 04/10/25
rosuvastatin 10 mg tablet (Crestor) 10 mg PO DAILY High Cholesterol 04/10/25
sorbitol 70 % solution 30 ml PO DAILYPRN PRN constipation 04/10/25
therapeutic multivitamin 1 tab PO DAILY Supplement 04/10/25
thiamine HCl (vitamin B1) 100 mg tablet 100 mg PO DAILY Supplement 04/10/25
Review of Systems
-
Unable to obtain full review of systems at this time due to: Acuity
Physical Exam
Physical Exam
HEENT: Other (pin point pupils )
Respiratory: Clear
Cardiac: S1/S2 and Regular Rhythm
GI: Soft, Non Tender, Non Distended and Normal Bowel Sounds
Musculoskeletal: Other (RUE edema > L )
Neuro: Other (Unresponsive to verbal stimuli, groans/winces with painful stimuli )
Impression/Plan
-
59 y/o patient had a prolonged hospitalization at [facility] January 11, 2025 to March 17, 2025 for intractable back pain, catheter associated infection, Klebsiella bacteremia. On long-term IV antibiotics cefepime and daptomycin with HD here
for acute change in mental status. Patient was obtunded on arrival and hypotensive. Baseline intermittently confused and bedbound since November 2024 per POA. Able to talk to sister on the phone at baseline.
CT Head: No acute intracranial abnormality noted.There are mild/moderate periventricular and subcortical white matter hypodensities which are nonspecific, however likely sequelae of chronic small vessel ischemic disease.
EEG 04/11/2025: Diffuse cortical dysfunction without focal abnormality. No seizures activity.
Echo 04/11/2025: TDS. EF 60-65%, no RWMA.
MRI brain 04/13/25: There are small foci of restricted diffusion involving the bilateral frontoparietal white matter, the left frontal white matter more anteriorly in the right basal ganglia consistent with acute/subacute infarctions. These may be
embolic in nature given the multivessel territory. Mild atrophy with sequelae of moderate chronic small vessel ischemic disease. Prominent blooming artifact along the left paramedian parietal lobe which is likely sequelae of prior
hemorrhage/hematoma.
CT A/P w/IV contrast 04/15/25: Limited exam, anasarca, splenomegaly, atrophic bilateral kidneys, proctitis indeterminate etiology, diffuse wall thickening of the urinary bladder outlet obstruction without source neurogenic bladder. Small focus of
gas in the bladder. Recent fracture of greater trochanter of right femur. Osseous destructive process of the T8-T9. Abnormal lucent and sclerotic appearance of the bones likely renal osteodystrophy
R Hip x-ray 04/17/25: Findings suggesting subacute fracture of the right greater trochanter.
CXR 04/23: Mild pulmonary vascular congestion. Mild hazy opacity in the right lung base, which could represent atelectasis or pneumonia.
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 However, if there is no history of clot in this region, early thrombus cannot be excluded. Clinical correlation recommendedIMPRESSION:
Plan:
#Acute/subacute CVAs :
-MRI brain above, likely embolic in nature - likely valve vegetation
-On heparin drip -d/c
# Mitral valve vegetation
-Noted on ALENA on 04/30
-Could be source of embolic stroke
-6 week course of antibiotics per ID - currently on zosyn
# Unstageable necrotic sacral wound -debridement on 04/30/25
- Wound culture revealed klebsiella, proteus vulgaris and enterococcus species
- No granulation tissue per wound care - worsening with progressive dermal gangrene - rectal tube placed to protect wound from ongoing diarrhea - poor prognosis
- Transitioning to hospice - he will receive adequate pain management
#Right hand swelling
- Increased from before. Known superficial clot in right hand. Warm compress
#Acute metabolic encephalopathy
-Multifactorial due to hypotension, polypharmacy, hypovolemia, (possibly) acute/subacute CVAs, and likely vascular dementia
-started on IV Synthroid, endocrine saw in c/s
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
-EEG without seizure activity
-Cont to hold gabapentin/Haldol
-Dobhoff placed on 04/18/25 for feeds - replaced 04/28/25 because it got clogged - length adjusted from 80 to 65 per previous as night team was concerned with length - repeat x-ray good position
-As pt's sister wants to continue aggressive care, GI consulted for PEG placement - pressure wound from dobhoff noted - Family decided against PEG tube. Dobhoff was removed 05/05 and started on D5 1/2 NS low rate - discussed with nephrology
-Transitioning to hospice
#Febrile
#H/O VRE and Klebsiella bacteremia:
-admitted on daptomycin/cefepime and transitioned to IV Zosyn per ID. Now off abx as per ID as d/c records indicate completion of antibiotics at [facility] and unclear as to why they were started at [facility]. Cultures were negative and pt was
afebrile.
-04/23/25AM temp 101.2 F. Septic w/u with BCxs, chest x-ray. Abx ordered but stopped by ID.
-Zosyn started 04/26/2025 to cover for positive blood cultures with klebsiella and proteus vulgaris. Daptomycin added with dialysis 05/05 for VRE growth from sacral wound cultures - No PO access so no statin regardless
-Infectious disease following
-Will d/c antibiotics as prioritizing comfort on hospice
#Pancytopenia:
-anemia likely secondary to chronic kidney disease likely worsened by prior daptomycin treatment
-BMBx and MM work up was done at [facility] revealing no BM or genetic mutations
-Heme/onc appreciated for possible eval for TTP, no TTP as no schistocytes and normal LDH
-Status post 2 units of PRBCs this admission
#Anxiety/depression
-Psychiatric valuation appreciated. BuSpar discontinued.
-Taper off lexapro per psych - off lexapro with no change in mental status.
#Lupus anticoagulant positive likely contributing to hypercoagulable state. Heparin bridge started. Now that there is no dobhoff, remain on heparin drip until family decides to move towards hospice or not.
#Hypothyroidism - repeat TSH 14.4 and free T4 0.72. Okay to transition from IV levothyroxine 75 to PO 75 per endocrinology - shaun out IV 50 levo daily. - stop
#Elevated troponin, nonischemic myocardial injury and due to underlying ESRD
#Chronic HFpEF: cont BB - stop
#ESRD: cont HD M/W/F, renal following - will stop dialysis
#PAF: Cont BB/heparin drip - stop
#? Metastatic disease: Hospital records from [facility] revealed concerns for metastatic disease after MRI of spine done. Some proctocolitis of bowels noted on imaging as well. CT A/P revealed no obvious metastatic disease
#Diarrhea: C diff NEG 04/13, c.diff (-) 04/29
#R greater trochanteric femur fracture: No surgical intervention required per ortho.
#Essential HTN: BB with holding parameters - stop
#HLD: Cont statin -stop
#Hypokalemia, replete prn
#Hypophosphatemia, replete
#Bedbound since November 2024 with intermittent confusion at baseline
#DM2: SSI/accuchecks
#Concern for vascular dementia
#Amputation of the left toes 1-3
#Osseous destruction of T8-T9
#Splenomegaly
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
#Wounds unstageable
-Unstageable sacral pressure injury
-stage I B/L heel pressure injury
-wound care
-Tylenol 1,000mg TID for pain - IV tylenol. No rectal access with ongoing diarrhea and rectal tube placed
# DVT prophylaxis- hospice
# DNR Status
--- NOTE | 2025-05-09 13:24 | PTCARENOTE ---
Pts chart flipped to inpatient hospice.
--- NOTE | 2025-05-09 13:55 | CHAP ---
Mr. Mondragon received Sacrament of the Sick prior to signing on to hospice care.
[2025-05-09] MEDS: MORPHINE SULFATE 2 MG IV ×2 (15:19→16:52)
--- NOTE | 2025-05-09 16:28 | PTCARENOTE ---
Pt for transfer to . Report to receiving RN. Belongings collected from room. Transferred to [id number] via bed, sister at bedside.
[2025-05-09 17:30] VITALS: BP 65/38
[2025-05-09 19:57] VITALS: BP 112/47
[2025-05-10] MEDS: MORPHINE SULFATE 2 MG IV ×4 (00:34→17:30)
[2025-05-10] MEDS: FLUSH (NSS) 2 FLUSH IV (00:35)
[2025-05-10 07:40] VITALS: BP 74/39
--- NOTE | 2025-05-10 11:08 | HOSPNOTE ---
patient is obtunded, did open eyes with verbalization then closed them again, non responsive after that. FLacc 0 at rest, elevated with provision of care and transitional movement. Would encourage to medicate before providing care. Received Morphine
an hour and half before visit for restlessness and pain to good effect. Extremities cool and dusky. Breathing nonlabored, absent BS. BP 70s. Patient is actively dying. Daughter at bedside, provided education on this stage in dying and changes
patient may go through as well as nonverbal cues of pain and to let the nurses know if they think he is in pain. Reviewed limited life expectancy is hours to days. Provided emotional support. Patient remains [facility] for management of pain and anxiety.
Will be seen by hospice daily.
--- NOTE | 2025-05-10 14:41 | CM ---
Patient seen at bedside on . Patient now on [facility] hospice/[facility]. Patient previously was at [facility], and on HD. CM will continue to follow for discharge planning needs.
Plan; hospice; [facility]
--- NOTE | 2025-05-10 16:48 | W.PN.HOSP.TC ---
Addendum entered and electronically signed by Marisol Cade MD 05/10/25 17:06:
I saw and evaluated the patient independently. I reviewed the resident�s note and agree with findings and plan as documented by Dr. Sevilla.
GENERAL: chronically ill, appears older than stated age, male in no apparent distress--unresponsive, cachectic
HEENT: NC/AT
HEART: regular rate and rhythm, +S1, +S2
LUNGS : clear to auscultation bilaterally
ABDOM: soft, nontender, nondistended, + bowel sounds, scaphoid abdomen--rectal tube
EXT: no cyanosis, clubbing, or edema--missing digits on right foot
NEUROLOGIC: nonresponsive
inpatient hospice due to the following--Acute/subacute CVAs, Mitral valve vegetation, Unstageable necrotic sacral wound -debridement on 04/30/25, Right hand swelling with known superficial clot in right hand, Acute metabolic encephalopathy, H/O VRE
and Klebsiella bacteremia, Pancytopenia, Anxiety/depression, Lupus anticoagulant positive, Hypothyroidism, Elevated troponin, nonischemic myocardial injury and due to underlying ESRD (stopped dialysis), paroxysmal afib, ?metastatic disease, R
greater trochanteric femur fracture, Essential HTN, HLD, Bedbound since November 2024 with intermittent confusion at baseline, DM2, Concern for vascular dementia, Osseous destruction of T8-T9, Splenomegaly
-cont morphine--progress to drip if needed--anticipate pt will pass today
code status--DNR Status
Original Note:
Today's Communication/Plan
-
Continue comfort measures
Assessment / Plan
Assessment / Plan
59-year-old male with history of ESRD on dialysis, paroxysmal A-fib on Eliquis, hypertension, hyperlipidemia, diabetes mellitus type 2, PAD status post multiple toe amputations, CHF, anxiety, depression, suspected underlying vascular dementia,
recent prolonged hospitaliazion with current hospital course complicated by persistent altered mental status, hypotension, multiple small areas of stroke suspected to be embolic, lupus anticoagulant positive, fever secondary to stage IV sacral
wound, status post surgical debridement with poor wound healing, wound culture positive for Proteus Klebsiella and VRE. His family chose to pursue hospice care.
- Appears comfortable, asleep
- Continue comfort/hospice protocol
Anticipated Discharge: Today
Subjective/Interval History
-
Date of Service: May 10, 2025
Objective Data
-
Vital Signs:
Vital Signs
Temp Pulse Resp BP Pulse Ox
98.1 F 84 18 74/39 98
05/10/25 07:40 05/10/25 07:40 05/10/25 07:40 05/10/25 07:40 05/10/25 07:40
Review of Systems
-
Unable to obtain full review of systems at this time due to: Acuity
Physical Exam
-
General: Comfortable
HEENT: Normocephalic and Atraumatic
Cardiac: Regular Rhythm and S1/S2; Negative Murmur or Rub
GI: Soft, Nondistended and Normal Bowel Sounds
Skin: Warm and Dry
Neuro: Other (asleep)
Psych: Calm
[2025-05-10 19:16] VITALS: BP 77/27
[2025-05-11] MEDS: ROBINUL 0.2 MG IV ×2 (04:36→08:41)
[2025-05-11] MEDS: MORPHINE SULFATE 2 MG IV ×4 (04:36→17:18)
[2025-05-11] MEDS: FLUSH (NSS) 3 FLUSH IV (04:39)
[2025-05-11 13:52] VITALS: BP 119/47
--- NOTE | 2025-05-11 14:00 | W.PN.HOSP.TC ---
Addendum entered and electronically signed by Marisol Cade MD 05/11/25 14:06:
I saw and evaluated the patient independently. I reviewed the resident�s note and agree with findings and plan as documented by Dr. Sevilla.
GENERAL: chronically ill, appears older than stated age, male in no apparent distress--unresponsive, cachectic
HEENT: NC/AT
HEART: regular rate and rhythm, +S1, +S2
LUNGS : clear to auscultation bilaterally
ABDOM: soft, nontender, nondistended, + bowel sounds, scaphoid abdomen--rectal tube
EXT: no cyanosis, clubbing, or edema--missing digits on right foot
NEUROLOGIC: nonresponsive
inpatient hospice due to the following--Acute/subacute CVAs, Mitral valve vegetation, Unstageable necrotic sacral wound -debridement on 04/30/25, Right hand swelling with known superficial clot in right hand, Acute metabolic encephalopathy, H/O VRE
and Klebsiella bacteremia, Pancytopenia, Anxiety/depression, Lupus anticoagulant positive, Hypothyroidism, Elevated troponin, nonischemic myocardial injury and due to underlying ESRD (stopped dialysis), paroxysmal afib, ?metastatic disease, R
greater trochanteric femur fracture, Essential HTN, HLD, Bedbound since November 2024 with intermittent confusion at baseline, DM2, Concern for vascular dementia, Osseous destruction of T8-T9, Splenomegaly
-cont morphine--progress to drip if needed
code status--DNR Status
Original Note:
Today's Communication/Plan
-
Continue comfort measures only
Assessment / Plan
Assessment / Plan
59-year-old male with history of ESRD on dialysis, paroxysmal A-fib on Eliquis, hypertension, hyperlipidemia, diabetes mellitus type 2, PAD status post multiple toe amputations, CHF, anxiety, depression, suspected underlying vascular dementia,
recent prolonged hospitaliazion with current hospital course complicated by persistent altered mental status, hypotension, multiple small areas of stroke suspected to be embolic, lupus anticoagulant positive, fever secondary to stage IV sacral
wound, status post surgical debridement with poor wound healing, wound culture positive for Proteus Klebsiella and VRE. His family chose to pursue hospice care.
- Appears comfortable, asleep
- Continue comfort/hospice protocol. On morphine bolus. Progress to drip as needed
Code statu: DNR
Anticipated Discharge: Today
Subjective/Interval History
-
Date of Service: May 11, 2025
Comfortable. sOme coughing pvernight, resolved with glycopyrrolate
Objective Data
-
Vital Signs:
Vital Signs
Temp Pulse Resp BP Pulse Ox
99.9 F 104 18 119/47 92
05/11/25 13:52 05/11/25 13:52 05/11/25 13:52 05/11/25 13:52 05/10/25 19:16
I&O
05/10/25 05/11/25 05/12/25
06:59 06:59 06:59
Intake Total 0 / 0
Output Total 0 / 0
Balance 0 / 0
Physical Exam
-
General: Comfortable
HEENT: Normocephalic and Atraumatic
Respiratory: Clear to Auscultation and Non Labored Respirations; Negative Wheezes, Rales, Rhonchi or Crackles
Cardiac: Regular Rhythm and S1/S2
GI: Soft, Nontender and Nondistended
Skin: Warm and Dry
Neuro: Other (asleep)
Psych: Calm
--- NOTE | 2025-05-11 14:07 | HOSPNOTE ---
Patient remains inpatient hospice appropriate for the management of pain and terminal secretions. Patient given 3 doses of morphine 2 mg ivp prn in 24hs for a flacc score of 4, moderate pain. Patient also give IV Robinul PRN for terminal secretions.
Family at bedside. Turned and repositioned. Emotional support provided. Hospice will visit daily.
--- NOTE | 2025-05-11 15:54 | CHAP ---
Marcelino was sleeping comfortably. Sisters Geovanni and Meenakshi were present, prayerfully supporting Marcelino and each other. Emotional and spiritual support provided. Project Financial Analyst will continue support through visits 2x week.
[2025-05-11 20:23] VITALS: BP 120/56
[2025-05-12] MEDS: MORPHINE SULFATE 2 MG IV ×3 (04:34→13:50)
[2025-05-12 07:35] VITALS: BP 94/22
--- NOTE | 2025-05-12 09:42 | HOSPNOTE ---
BENCH WORKER HOLLOW HANDLE VISITED 59 YEAR OLD PATIENT TO CONDUCT INITIAL TECHNICAL DESIGNER ASSESSMENT. PATIENT RECENTLY ADMITTED ONTO HOSPICE SERVICES AND [facility] LEVEL OF CARE WITH THE PRIMARY DIAGNOSIS OF RENAL FAILURE. NURSE REPORTED MEDICATIONS ADMINISTERED, SISTERS
BY PATIENT'S BEDSIDE, AND PATIENT IS COMFORTABLE. TECHNICAL DESIGNER GREETED PATIENT AND FAMILY UPON ENTERING PATIENT'S ROOM AND EXPLAINED THE ROLE OF HOSPICE WORKER. PATIENT'S SISTERS' LUANN, XOCHITL, TALISHA, AND TALISHA'S SPOUSE JOANNE WERE AT PATIENT'S BEDSIDE.
PATIENT ASLEEP AND APPEARED TO BE RESTING COMFORTABLY, NO SIGNS OF PAIN AND/OR DISTRESS OBSERVED. PATIENT OPENED HIS EYES TECHNICAL DESIGNER RUBBED HIS HAND AND TALKED TO HIM. XOCHITL REPORTED PATIENT IS 1 OF 6 SIBLINGS, A SISTER AND BROTHER PASSED. PATIENT HAS
2 DAUGHTERS AGES 24 AND 22 THEY VISITED PATIENT MONDAY AND SAID THEIR GOODBYES. 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 PATIENT RAISED MU-ISM AND CONVERTED TO ANGLICAN A FEW YEARS AGO, HIS WISHES ARE TO BE BURIED IN THE FAMILY CEMETERY IN [place] AND ARRANGEMENTS IN PROGRESS. SISTER XOCHITL IS CONSIDERING BEREAVEMENT SERVICES, OTHER FAMILY
MEMBERS DECLINED BEREAVEMENT SERVICES. FAMILY APPEARED TO BE COPING APPROPRIATELY. PRAYER AND EMOTIONAL SUPPORT PROVIDED.
PATIENT MEETS [facility] CRITERIA FOR SN ASSESSMENTS, MANAGEMENT OF PAIN, AND TERMINAL SECRETIONS THAT COULD NOT BE MANAGED AT HOME AND/IN AN OUTPATIENT SETTING. DISCHARGE PLANNING CONTINUES.
PLAN FOR NEXT VISIT: PROVIDE SUPPORTIVE SERVICES AND MONITOR FOR ADDITIONAL SERVICES ONCE A WEEK WHILE ON [facility] LEVEL OF CARE.
--- NOTE | 2025-05-12 10:07 | CM ---
Reviewed the chart notes. CM continues to be available to patient/family.
Plan: [facility] Hospice continues.
--- NOTE | 2025-05-12 11:47 | HOSPNOTE ---
Family is at bedside emotional support provided. Patient appears comfortable at this time. Patient is medicated prior to any care. Patient is unresponsive at this time. Encouraged to continue medicating for pain and agitation. Patient continues to
be inpatient appropriate for management of pain. Patient will be seen daily.
[2025-05-12 19:35] VITALS: BP 66/37
[2025-05-12] MEDS: OFIRMEV 100 IV (20:18)
--- NOTE | 2025-05-12 21:23 | W.PN.HOSP.TC ---
Today's Communication/Plan
-
Continue comfort/hospice protocol. On morphine bolus. Progress to drip as needed
Assessment / Plan
Assessment / Plan
59-year-old male with history of ESRD on dialysis, paroxysmal A-fib on Eliquis, hypertension, hyperlipidemia, diabetes mellitus type 2, PAD status post multiple toe amputations, CHF, anxiety, depression, suspected underlying vascular dementia,
recent prolonged hospitaliazion with current hospital course complicated by persistent altered mental status, hypotension, multiple small areas of stroke suspected to be embolic, lupus anticoagulant positive, fever secondary to stage IV sacral
wound, status post surgical debridement with poor wound healing, wound culture positive for Proteus Klebsiella and VRE. His family chose to pursue hospice care.
- Appears comfortable, asleep
- Continue comfort/hospice protocol. On morphine bolus. Progress to drip as needed
Code statu: DNR
Anticipated Discharge: > 48 hours
Subjective/Interval History
-
Date of Service: May 12, 2025
Patient was calm today surrounding by his family and no overnight events.
Objective Data
-
Vital Signs:
Vital Signs
Temp Pulse Resp BP Pulse Ox
102.7 F H 119 16 66/37 96
05/12/25 19:35 05/12/25 19:35 05/12/25 19:35 05/12/25 19:35 05/12/25 19:35
I&O
05/11/25 05/12/25 05/13/25
06:59 06:59 06:59
Intake Total 0 / 0 0 / 0
Output Total 0 / 0 700 / 700 0 / 0
Balance 0 / 0 -700 / -700 0 / 0
Review of Systems
-
History Source: Family (unable to take full history from the patient as the patient)
Physical Exam
-
HEENT: Normocephalic and Atraumatic
Respiratory: Clear to Auscultation and Non Labored Respirations
Cardiac: Regular Rhythm and S1/S2
GI: Soft, Nontender and Nondistended
Skin: Warm and Dry
Neuro: Other (asleep)
Psych: Calm
[2025-05-13] MEDS: MORPHINE SULFATE 2 MG IV ×5 (04:06→14:00)
--- NOTE | 2025-05-13 09:06 | CM ---
Reviewed the chart notes. CM continues to be available to patient/family.
Plan: Continue with [facility].
--- NOTE | 2025-05-13 12:31 | HOSPNOTE ---
Patient does appear imminent. Family at bedside who I encouraged to allow patient sometime alone. Patient's breathing is shallow, temporal wasting noted, patient is unresponsive. Prior to positioning or care please medicate. Patient continues being
inpatient appropriate for pain management requiring IV medications. Patient will be seen daily.
[2025-05-13] MEDS: MORPHINE 100 IV (14:35)
--- NOTE | 2025-05-13 15:29 | PTCARENOTE ---
unable to take blood pressure this shift on patient, tried manual and automatic without success. Family at bedside, started Morphine gtt. Wound care done.
--- NOTE | 2025-05-13 16:56 | W.PN.HOSP.TC ---
Addendum entered and electronically signed by Baldomero Egan MD 05/14/25 12:31:
inpatient hospice
Original Note:
Today's Communication/Plan
-
Continue comfort/hospice protocol. On morphine bolus. Progress to drip as needed
Assessment / Plan
Assessment / Plan
59-year-old male with history of ESRD on dialysis, paroxysmal A-fib on Eliquis, hypertension, hyperlipidemia, diabetes mellitus type 2, PAD status post multiple toe amputations, CHF, anxiety, depression, suspected underlying vascular dementia,
recent prolonged hospitaliazion with current hospital course complicated by persistent altered mental status, hypotension, multiple small areas of stroke suspected to be embolic, lupus anticoagulant positive, fever secondary to stage IV sacral
wound, status post surgical debridement with poor wound healing, wound culture positive for Proteus Klebsiella and VRE. His family chose to pursue hospice care.
- Appears comfortable, asleep
- Continue comfort/hospice protocol. On morphine bolus and added. Progressed to Morphine drip today.
Code statu: DNR
Anticipated Discharge: > 48 hours
Subjective/Interval History
-
Date of Service: May 13, 2025
patient was calm/ sleeping today surrounding by his family and no overnight events.
Objective Data
-
Vital Signs:
Vital Signs
Temp Pulse Resp BP Pulse Ox
99.4 F 109 14 66/37 87
05/13/25 07:55 05/13/25 07:55 05/13/25 07:55 05/12/25 19:35 05/13/25 07:55
I&O
05/12/25 05/13/25 05/14/25
06:59 06:59 06:59
Intake Total 0 / 0
Output Total 700 / 700 0 / 0
Balance -700 / -700 0 / 0
Review of Systems
-
Unable to obtain full review of systems at this time due to: Patient Non-verbal
History Source: Family (unable to take full history from the patient as the patient)
Physical Exam
-
HEENT: Normocephalic and Atraumatic
Respiratory: Clear to Auscultation and Non Labored Respirations
Cardiac: Regular Rhythm and S1/S2
GI: Soft, Nontender and Nondistended
Skin: Warm and Dry
Neuro: Other (asleep)
Psych: Calm
[2025-05-13 19:24] VITALS: BP 121/28
[2025-05-14 07:00] VITALS: BP 104/26
--- NOTE | 2025-05-14 08:45 | W.PN.HOSP.TC ---
Addendum entered and electronically signed by Baldomero Egan MD 05/14/25 12:31:
inpatient hospice
Original Note:
Today's Communication/Plan
-
Continue comfort/hospice protocol. On morphine drip. received Tylenol 625mg rectally PRN Q6hr for fever more than 101
Assessment / Plan
Assessment / Plan
59-year-old male with history of ESRD on dialysis, paroxysmal A-fib on Eliquis, hypertension, hyperlipidemia, diabetes mellitus type 2, PAD status post multiple toe amputations, CHF, anxiety, depression, suspected underlying vascular dementia,
recent prolonged hospitaliazion with current hospital course complicated by persistent altered mental status, hypotension, multiple small areas of stroke suspected to be embolic, lupus anticoagulant positive, fever secondary to stage IV sacral
wound, status post surgical debridement with poor wound healing, wound culture positive for Proteus Klebsiella and VRE. His family chose to pursue hospice care.
- Appears comfortable, asleep
- Continue comfort/hospice protocol. On morphine bolus and added. Progressed to Morphine drip since yesterday.
Code statu: DNR
Anticipated Discharge: > 48 hours
Subjective/Interval History
-
Date of Service: May 14, 2025
patient was calm/ sleeping today surrounding by his family and no overnight events.
Objective Data
-
Vital Signs:
Vital Signs
Temp Pulse Resp BP Pulse Ox
98.1 F 99 14 121/28 100
05/13/25 19:24 05/13/25 19:24 05/13/25 19:24 05/13/25 19:24 05/13/25 19:24
I&O
05/13/25 05/14/25 05/15/25
06:59 06:59 06:59
Intake Total 0 / 0
Output Total 0 / 0 0 / 0
Balance 0 / 0
Review of Systems
-
Unable to obtain full review of systems at this time due to: Patient Non-verbal
History Source: Family (unable to take full history from the patient as the patient)
Physical Exam
-
HEENT: Normocephalic and Atraumatic
Respiratory: Clear to Auscultation and Non Labored Respirations
Cardiac: Regular Rhythm and S1/S2
GI: Soft, Nontender and Nondistended
Skin: Warm and Dry
Neuro: Other (asleep)
Psych: Calm
[2025-05-14] MEDS: TYLENOL/FEVERALL 650 MG RECTAL (09:25)
[2025-05-14] MEDS: MORPHINE SULFATE 2 MG IV ×2 (09:30→16:57)
--- NOTE | 2025-05-14 10:22 | CM ---
Reviewed the chart notes. Patient on Morphine gtt. CM continues to be available to patient/family.
Plan: Comfort care continues.
--- NOTE | 2025-05-14 12:49 | HOSPNOTE ---
Marcelino was sleeping comfortably, non-responsive. He did not show signs of pain. Sister Jelena was present with her . She shared that she has always been close to her 'little brother.' Contact [employer] provided emotional and spiritual support
through presence, dialogue, words of comfort and blessing. Will continue support through weekly visits.
--- NOTE | 2025-05-14 13:17 | HOSPNOTE ---
Patient is imminent, on a morphine drip having long periods of apnea. Patient will be seen daily by hospice nurse. Family at bedside emotional support provided.
--- NOTE | 2025-05-14 19:55 | W.PN.DEATH ---
Pronouncement of
-
Called to see patient to pronounce.
No spontaneous heart tones or respirations noted.
Patient not responsive to verbal stimuli.
Patient is pronounced .
Time of : 19:10
Date of : 05/14/25
Cause of : Failure to thrive, End stage renal disease, acute/subacute cerebral infractions, Unstageable necrotic sacral wound, paroxysmal atrial fibrillation, hypertension, diabetes mellitus type two, multiple toe amputation, anxiety,
depression, chronic heart failure.
Family Notified: Yes (sister/family at bedside )
--- NOTE | 2025-05-15 19:02 | W.DCSUMMARY ---
Discharge Summary
Discharge Data
Date of Admission: 05/09/25
Date of Discharge: 05/15/25
-
Pending Results: No
Hospital Course
Discharging Physician:
Roxy James
Disposition:
Primary Care Physician:
Unknown
Inpatient hospice due to the following: Acute/subacute CVAs, Mitral valve vegetation, Unstageable necrotic sacral wound -debridement on 04/30/25, Right hand swelling with known superficial clot in right hand, Acute metabolic encephalopathy, H/O VRE
and Klebsiella bacteremia, Pancytopenia, Anxiety/depression, Lupus anticoagulant positive, Hypothyroidism, Elevated troponin, nonischemic myocardial injury and due to underlying ESRD, paroxysmal afib, ?metastatic disease, R greater trochanteric
femur fracture, Essential HTN, HLD, Bedbound since November 2024 with intermittent confusion at baseline, DM2,vascular dementia, Osseous destruction of T8-T9, Splenomegaly.
Cause of : Failure to thrive, End stage renal disease, acute/subacute cerebral infractions, Unstageable necrotic sacral wound, paroxysmal atrial fibrillation, hypertension, diabetes mellitus type two, multiple toe amputation, anxiety,
depression, chronic heart failure.
Time of : 19:10
Date of : 05/14/25
Hospital Course:
59 y/o male with baseline poor medical health with history of ESRD on dialysis, paroxysmal a.fib on Eliquis, HTN, HLD, DM, PAD s/p multiple toe amputations, CHF, Anxiety, Depression, suspected underlying vascular dementia recent prolonged
hospitalization [facility] January 11 to March 17 for complicated by VRE and Klebsiella bacteremia (following which he was discharged to [facility] with buttermaker helper IV abx Cefepime and Daptomycin to be given with HD) was sent by SNF for
evaluation AMS and hypotension. We provided fluid resuscitation and continued antibiotics with no change. Head CT was unremarkable. We did an EEG to rule out seizure which was inconclusive as well as transitioned him from cefepime to zosyn to rule
out cefepime neurotoxicity. Brain MRI revealed multiple small areas of stroke per below.
During this period records from [facility] were obtained and it was shown he completed his antibiotic course there. Bone marrow biopsy was also done there for ongoing pancytopenia which were normal. As cultures were negative here and afebrile so
antibiotics were discontinued here. Due to his obtunded state, a ALENA was deferred at that time for risk of aspiration but a work up for other causes of hyper-coaguable state was done and he was found to be lupus anticoagulant positive per heme/onc
work up. They also worked up and ruled out possible TTP. CT ab/pelvis was done as well to evaluate for possible metastatic cancer to explain lucent and sclerotic appearance of bone on imaging sent by [facility], however no obvious malignancy was
found and ultimately thought to be due to renal osteodystrophy. A right femur fracture was noted at this time however no interventions were indicated per orthopedics. TSH was also added on and found to be elevated at 26 with free T4 0.60 so he was
started on IV levothyroxine to treat possible myxedema coma. There was no improvement with the levothyroxine ruling that out as possible cause of AMS. We were going to transition to warfarin with heparin bridge when he spiked a new onset fever.
Extensive infectious work up began and source thought to be due to sacral wound vs HD line. He was started on zosyn. Family agreed to sacral wound debridement under anesthesia at which point a concurrent ALENA was done.
ALENA found possible vegetations and a 6 week antibiotic course was recommended. The sacral wound debridement was down to the bone (stage IV) and over the next few days appeared to be getting worse with no granulation tissue and consistent exposure to
feces as patient has ongoing diarrhea with tube feeds despite attempts to limit exposure with rectal tube. C. diff (-). Blood cultures revealed klebsiella and proteus vulgaris. Sacral wound cultures revealed proteus vulgaris, klebsiella aerogenes
and enterococcus faecalis (VRE). Daptomycin was added with dialysis to cover VRE. In the midst of this, a dobhoff tube was placed for nutrition as NPO in obtunded state. Discussions with family were ongoing as to goals of care with the understanding
that an eventual PEG tube would be required. Repeat EEG was done per request of family which revealed no seizure activity. The ethics committee was consulted. PEG tube was eventually decided against by family. A second opinion by the director of
neurology at [facility] Dr. Araujo was provided and he also stated this patient is hospice appropriate.
After much discussion between the family, the correctional casework specialist, hospital ornamental ironworker helper and hospice nurse, the family agreed to move towards comfort measures. On 05/09/2025 the patient was admitted to the hospice in favor of comfort.
At Hospice the patient received comfort measures including IV morphine which progressed to drip and Tylenol 650mg PRN rectally for fever. On 05/14/2025 the patient had no spontaneous heart tones or respirations and was not responsive to verbal
stimuli, the patient had pronounced , patient's sister/family at bedside notified.
Discharge Plan
-
Patient Disposition:
Date/Time
Date/Time: 05/14/25 19:10
Discharge Date and Time
Discharge Date/Time: 05/14/25 19:10
Print Language: SAMOAN
== END 2025-05-14 19:10 | disposition expired | DRG 951 ==
LOC: 2 NORTH 13:17
PROVIDERS: ADMITTING PHYSICIAN Internal Medicine; ATTENDING PHYSICIAN Hospitalist
DX: Z51.5 Encounter for palliative care (principal); G93.41 Metabolic encephalopathy; N18.6 End stage renal disease; I33.0 Acute and subacute infective endocarditis; I13.2 Hypertensive heart and chronic kidney disease with heart failure and with stage 5 chronic kidney disease, or end stage renal disease; D61.818 Other pancytopenia; D68.62 Lupus anticoagulant syndrome; I50.32 Chronic diastolic (congestive) heart failure; I5A Non-ischemic myocardial injury (non-traumatic); E11.22 Type 2 diabetes mellitus with diabetic chronic kidney disease; E78.5 Hyperlipidemia, unspecified; F41.9 Anxiety disorder, unspecified; F32.A Depression, unspecified; N25.0 Renal osteodystrophy; D63.1 Anemia in chronic kidney disease; E03.9 Hypothyroidism, unspecified; E83.39 Other disorders of phosphorus metabolism; E87.6 Hypokalemia; H54.7 Unspecified visual loss; I48.0 Paroxysmal atrial fibrillation; L89.150 Pressure ulcer of sacral region, unstageable; L89.629 Pressure ulcer of left heel, unspecified stage; L89.616 Pressure-induced deep tissue damage of right heel; R62.7 Adult failure to thrive; Z74.01 Bed confinement status; Z89.429 Acquired absence of other toe(s), unspecified side